=== PATIENT | female | born 1945 | race Caucasian/White ===

== ENCOUNTER → 2017-10-17 13:30 | Outpatient (CLI) | payer MEDICARE, OTHER, SELFPAY | PROVIDERS: PCP Family Medicine; Visit Provider Internal Medicine Cardiovascular Disease | DX: I25.810 Atherosclerosis of coronary artery bypass graft(s) without angina pectoris (principal); R07.9 Chest pain, unspecified; E78.5 Hyperlipidemia, unspecified; Z95.5 Presence of coronary angioplasty implant and graft | CPT/HCPCS: 99213 ==

== ENCOUNTER 2017-11-10 12:45 | Emergency (ER) | payer MEDICARE, OTHER, SELFPAY ==
[2017-11-10] VITALS (72 sets, daily range): BP systolic 108–159; BP diastolic 63–102; PULSE 51–92; RESP 12–25; TEMP 36.1–36.5; O2SAT 91–99
--- NOTE | 2017-11-10 15:13 | W.ED.GENAD ---
Discharge Plan Disposition Patient Disposition: HOME Condition: Stable Discharge Details Chief Complaint: Dizzy/Sync Clinical Impression: Lightheadedness Primary Care Provider: Kristyn Whitehead V ED Provider: Olga Berman Home Meds and New Rx's Prescriptions: Continue clonazepam [Klonopin] 0.5 MG tablet 0.5 mg PO BID PRN RF: 0 levothyroxine [Synthroid] 75 MCG tablet 75 mcg PO DAILY RF: 0 nitroglycerin 0.4 MG tablet, sublingual 0.4 mg Sublingual PRN RF: 0 epinephrine [EpiPen 2-Chong] 0.3 MG/0.3 ML auto-injector 0.3 mg IM ONCE RF: 0 vitamins A,C,A-nfvw-zrxrcf [PreserVision AREDS] 1 EACH tablet 1 ea PO DAILY RF: 0 atorvastatin 40 MG tablet 40 mg PO DAILY Qty: 90 RF: 6 aspirin 81 MG tablet,chewable 81 mg PO DAILY Qty: 30 RF: 12 hydroxychloroquine [Plaquenil] 200 mg Tablet 200 mcg PO BID RF: 0 clonidine HCl [Catapres] 0.1 MG tablet 0.1 mg PO Q8H PRN PRNRF: 0 fluconazole [Diflucan] 150 MG tablet 150 mg PO ONCE RF: 0 prednisone 5 MG tablet 20 mg PO DAILY RF: 0 calcium carbonate-vitamin D3 [Calcium 600 + D(3)] 1 EACH tablet 1 ea PO DAILY RF: 0 paroxetine HCl [Paxil] 30 MG tablet 30 mg PO DAILY RF: 0 pantoprazole 40 MG tablet,delayed release (DR/EC) 40 mg PO DAILY RF: 0 cyanocobalamin (vitamin B-12) 1,000 MCG/ML solution 1,000 mcg IJ Q30D RF: 0 betamethasone, augmented [Diprolene] 50 GM ointment 1 applic Topical BID PRN PRNRF: 0 lisinopril 5 MG tablet 5 mg PO DAILY RF: 0 mometasone 45 GM cream 1 applic Topical BID PRN PRNRF: 0 Discharge Instructions Instructions: Near Syncope (ED), Lightheadedness (ED) Additional Instructions: Please return immediately to the emergency department if you develop any new or worsening symptoms or if you become otherwise concerned. It is extremely important that you make an appointment to be seen this week in follow-up by your primary care doctor. Referrals: Kristyn Whitehead MD [Primary Care Provider] - Discharge Data Discharge Date/Time-TO BE ENTERED AT DEPARTURE: 11/10/17 22:43 Medical Decision Making [facility] Narrative Medical decision making narrative: Emani Delong is a 72 y/o woman with h/o hypertension, hyperlipidemia, coronary artery disease status post stent placement presenting to the emergency department with episode of lightheadedness/presyncope that occurred this morning and is still somewhat ongoing the emergency department. Associated with elevated blood pressure at her PCPs office. On exam patient appears fatigued but nontoxic. Normal cardiopulmonary exam. Normal neurologic exam. Concern for dehydration, PE versus other. Doubt ACS. Exam/history not consistent with tachydysrhythmia as patient with continuation of symptoms during EKG showing sinus laure at 50. Plan for chest x-ray, screening labs, telemetry, IV fluid hydration. Will monitor and reassess. negative troponin, negative d-dimer. Plan for repeat troponin and EKG. Upon reassessment patient reports feeling improved. She reports that she feels much better since having been able to rest. Systolic blood pressure now 130. Repeat troponin and EKG okay. Patient continues to feel well. Lengthy discussion with patient regarding return to the emergency department precautions and importance of outpatient follow-up. Patient is amenable to the plan. Medical Records Medical records reviewed: Yes I reviewed the patient's medical records. Imaging Data Radiologic Study: Attestation: I personally reviewed and interpreted this imaging study as follows: Radiologist's impression: PA AND LATERAL CHEST: The lungs are free of infiltrate. There is no pleural effusion. The cardiovascular structures appear intact. The mediastinum is unremarkable. SUMMARY: No evidence of acute cardiopulmonary disease. Lab Data Lab results reviewed: Yes I reviewed the patient's lab results. ECG Data Attestation: I personally reviewed and interpreted this ECG (s) as follows: Interpretation: EKG shows sinus bradycardia at 50 with normal axis, no WPW, no Brugada, no long QT, no STEMI. EKG shows NSR at 66 with nl axis, unchanged from prior HPI - General Adult General Mode of arrival: ambulatory. Date/Time Provider Initiated Documentation: 11/10/17 13:27. Limitations to Documentation: no limitations. Information obtained by: patient and family. HPI Narrative: Emani Delong is a 72 y/o woman with history of hypertension, hypothyroidism, hyperlipidemia, coronary artery disease presenting to the emergency department with lightheadedness. Patient reports that earlier today she began feeling very lightheaded. She also had some sweating and nausea. She was seen for this at [facility], where she was found to have elevated blood pressure and was sent to the emergency department. Upon arrival, patient continued to have lightheadedness and feel generally unwell. She denied having any pain. No shortness of breath, no cough, no fever, no vomiting, no diarrhea, no recent travel, no recent illnesses, recently in her usual state of health. She reports that she has been eating and drinking normally. She denies having similar symptoms in the past. Patient reports that she took her usual morning meds today, including her hypertension medication. Onset of symptoms was while at rest. Related Data Home Medications Medication Instructions Recorded Confirmed clonazepam [Klonopin] 0.5 mg PO BID PRN tab-cap 09/23/12 11/10/17 epinephrine [EpiPen 2-Chong] 0.3 mg IM ONCE 09/23/12 11/10/17 levothyroxine [Synthroid] 75 mcg PO DAILY tab-cap 09/23/12 11/10/17 nitroglycerin 0.4 mg SUBLINGUAL PRN 09/23/12 11/10/17 vitamins A,C,K-xhcx-ziabwq 1 ea PO DAILY 09/23/12 11/10/17 [PreserVision AREDS] aspirin 81 mg PO DAILY #30 tab.chew 11/17/15 11/10/17 atorvastatin 40 mg PO DAILY #90 tab-cap 11/17/15 11/10/17 betamethasone, augmented 1 applic TOPICAL BID PRN PRN 09/12/17 11/10/17 [Diprolene] calcium carbonate-vitamin D3 1 ea PO DAILY 09/12/17 11/10/17 [Calcium 600 + D(3)] clonidine HCl [Catapres] 0.1 mg PO Q8H PRN PRN 09/12/17 11/10/17 cyanocobalamin (vitamin B-12) 1,000 mcg IJ Q30D 09/12/17 11/10/17 fluconazole [Diflucan] 150 mg PO ONCE 09/12/17 11/10/17 lisinopril 5 mg PO DAILY 09/12/17 11/10/17 mometasone 1 applic TOPICAL BID PRN PRN 09/12/17 11/10/17 pantoprazole 40 mg PO DAILY 09/12/17 11/10/17 paroxetine HCl [Paxil] 30 mg PO DAILY 09/12/17 11/10/17 prednisone 20 mg PO DAILY 09/12/17 11/10/17 hydroxychloroquine [Plaquenil] 200 mcg PO BID 11/10/17 11/10/17 Allergies Allergy/AdvReac Type Severity Reaction Status Date / Time Sulfa (Sulfonamide Allergy Unverified 11/10/17 13:42 Antibiotics) venlafaxine HCl Allergy Unverified 11/10/17 13:42 [From Effexor] foods Allergy Uncoded 11/10/17 13:42 General Stated Complaint: Dizzy/Sync KARLA: 3 Review of Systems Review of Systems Constitutional: denies fevers Eyes: denies eye pain ENT: denies facial pain, dental pain, sore throat Cardiovascular: denies chest pain, edema Respiratory: denies SOB, cough GI: denies abdominal pain, vomiting, diarrhea : denies flank pain MSK: denies back pain, neck pain, arthralgias, myalgias Skin: denies rash Neuro: denies headaches, weakness, reports lightheadedness PFSH Medical History Anxiety disorder B12 deficiency Bright red blood per rectum Chest fullness Chest pressure Chronic low back pain Coronary artery disease Dyspnea on exertion Elevated blood pressure reading Fatigue H pylori ulcer History of coronary artery stent placement Hx of cardiac catheterization Hx of depression headache Hyperlipidemia Hypothyroidism Insomnia Osteopenia Psoriasis Skin lesion Subacromial bursitis Social History Smoking/Tobacco Use Status: Former Tobacco Use Surgical History Colonoscopy - MAC (11/25/16) Exam Narrative Exam Narrative: Constitutional: well and [id number], pleasant, conversing normally HENT: head atraumatic, normocephalic normal inspection, mucous membranes moist Eyes: conjunctiva normal, sclera normal, pupils 3mm b/l Neck: no stridor, normal ROM, trachea midline Chest: normal inspection Resp: normal work of breathing, LCTAB Cardio: normal rate, normal rhythm, no murmur appreciated GI: abdomen soft, non-tender, non-distended Back: normal inspection, no rash Skin: warm, dry, normal color, no rash Neuro: alert, not altered, grossly non-focal, normal tone Ext: no edema Psych: normal mood, normal affect, normal behavior Course Vital Signs Temperature 36.5 C 11/10/17 13:40 Pulse 56 L 11/10/17 13:40 Respiratory Rate 16 11/10/17 13:40 Blood Pressure 141/94 H 11/10/17 13:40 Pulse Oximetry 98 11/10/17 13:40 Temperature 36.5 C 11/10/17 13:40 Pulse 56 L 11/10/17 13:40 Respiratory Rate 16 11/10/17 13:40 Blood Pressure 141/94 H 11/10/17 13:40 Pulse Oximetry 98 11/10/17 13:40
[2017-11-10 16:31] LABS: Absolute Basophil Count 0.02 k/cumm (0.0-0.2); Absolute Eosinophil Count 0.14 k/cumm (0.0-0.7); Absolute Lymphocyte Count 1.31 k/cumm (1.2-3.4); Absolute Monocyte Count 0.28 k/cumm (0.11-0.7); Basophils % 0.4; Eosinophils % 2.7; HCT 46.3 % (36.0-46.0); HGB 15.5 g/dL (12.0-15.5); Mean Corp. HGB Concentration 33.5 g/dL (32.0-36.0); Mean Corpuscular Hemoglobin 32.1 pg (27.0-33.0); Mean Corpuscular Volume 95.9 fL (80-95); Mean Platelet Volume 8.8 fL (8.0-11.0); Monocytes % 5.3; Neutrophils % 66.6; Platelet Count 205 x1000/uL (130-400); RBC 4.83 m/cumm (4.00-5.20); RBC Distribution Width 13.5 % (11.7-14.6); White Blood Cell Count 5.25 k/cumm (4.4-10.8)
[2017-11-10 16:55] LABS: NT-proBNP 56 pg/mL
[2017-11-10 16:59] LABS: Troponin I < 0.02 ng/mL (0.00-0.06)
[2017-11-10 17:29] LABS: D-Dimer 217 ng/mlFEU (<500)
--- NOTE | 2017-11-10 19:12 | ED.GENADUL_ITS ---
Discharge Plan Disposition Patient Disposition: HOME Condition: Stable Discharge Details Chief Complaint: Dizzy/Sync Clinical Impression: Lightheadedness Primary Care Provider: Kristyn Whitehead V ED Provider: Olga Berman Home Meds and New Rx's Prescriptions: Continue clonazepam [Klonopin] 0.5 MG tablet 0.5 mg PO BID PRN RF: 0 levothyroxine [Synthroid] 75 MCG tablet 75 mcg PO DAILY RF: 0 nitroglycerin 0.4 MG tablet, sublingual 0.4 mg Sublingual PRN RF: 0 epinephrine [EpiPen 2-Chong] 0.3 MG/0.3 ML auto-injector 0.3 mg IM ONCE RF: 0 vitamins A,C,E-jmep-vdcueb [PreserVision AREDS] 1 EACH tablet 1 ea PO DAILY RF: 0 atorvastatin 40 MG tablet 40 mg PO DAILY Qty: 90 RF: 6 aspirin 81 MG tablet,chewable 81 mg PO DAILY Qty: 30 RF: 12 hydroxychloroquine [Plaquenil] 200 mg Tablet 200 mcg PO BID RF: 0 clonidine HCl [Catapres] 0.1 MG tablet 0.1 mg PO Q8H PRN PRNRF: 0 fluconazole [Diflucan] 150 MG tablet 150 mg PO ONCE RF: 0 prednisone 5 MG tablet 20 mg PO DAILY RF: 0 calcium carbonate-vitamin D3 [Calcium 600 + D(3)] 1 EACH tablet 1 ea PO DAILY RF: 0 paroxetine HCl [Paxil] 30 MG tablet 30 mg PO DAILY RF: 0 pantoprazole 40 MG tablet,delayed release (DR/EC) 40 mg PO DAILY RF: 0 cyanocobalamin (vitamin B-12) 1,000 MCG/ML solution 1,000 mcg IJ Q30D RF: 0 betamethasone, augmented [Diprolene] 50 GM ointment 1 applic Topical BID PRN PRNRF: 0 lisinopril 5 MG tablet 5 mg PO DAILY RF: 0 mometasone 45 GM cream 1 applic Topical BID PRN PRNRF: 0 Discharge Instructions Instructions: Near Syncope (ED), Lightheadedness (ED) Additional Instructions: Please return immediately to the emergency department if you develop any new or worsening symptoms or if you become otherwise concerned. It is extremely important that you make an appointment to be seen this week in follow-up by your primary care doctor. Referrals: Kristyn Whitehead MD [Primary Care Provider] - Discharge Data Discharge Date/Time-TO BE ENTERED AT DEPARTURE: 11/10/17 22:43 Medical Decision Making [facility] Narrative Medical decision making narrative: Emani Delong is a 72 y/o woman with h/o hypertension, hyperlipidemia, coronary artery disease status post stent placement presenting to the emergency department with episode of lightheadedness /presyncope that occurred this morning and is still somewhat ongoing the emergency department. Associated with elevated blood pressure at her PCPs office. On exam patient appears fatigued but nontoxic. Normal cardiopulmonary exam. Normal neurologic exam. Concern for dehydration, PE versus other. Doubt ACS. Exam/history not consistent with tachydysrhythmia as patient with continuation of symptoms during EKG showing sinus laure at 50. Plan for chest x -ray, screening labs, telemetry, IV fluid hydration. Will monitor and reassess. negative troponin, negative d-dimer. Plan for repeat troponin and EKG. Upon reassessment patient reports feeling improved. She reports that she feels much better since having been able to rest. Systolic blood pressure now 130. Repeat troponin and EKG okay. Patient continues to feel well. Lengthy discussion with patient regarding return to the emergency department precautions and importance of outpatient follow-up. Patient is amenable to the plan. Medical Records Medical records reviewed: Yes I reviewed the patient's medical records. Imaging Data Radiologic Study: Attestation: I personally reviewed and interpreted this imaging study as follows: Radiologist's impression: PA AND LATERAL CHEST: The lungs are free of infiltrate. There is no pleural effusion. The cardiovascular structures appear intact. The mediastinum is unremarkable. SUMMARY: No evidence of acute cardiopulmonary disease. Lab Data Lab results reviewed: Yes I reviewed the patient's lab results. ECG Data Attestation: I personally reviewed and interpreted this ECG (s) as follows: Interpretation: EKG shows sinus bradycardia at 50 with normal axis, no WPW, no Brugada, no long QT, no STEMI. EKG shows NSR at 66 with nl axis, unchanged from prior HPI - General Adult General Mode of arrival: ambulatory . Date/Time Provider Initiated Documentation: 11/10/17 13:27 . Limitations to Documentation: no limitations . Information obtained by: patient and family . HPI Narrative: Emani Delong is a 72 y/o woman with history of hypertension, hypothyroidism, hyperlipidemia, coronary artery disease presenting to the emergency department with lightheadedness. Patient reports that earlier today she began feeling very lightheaded. She also had some sweating and nausea. She was seen for this at [facility], where she was found to have elevated blood pressure and was sent to the emergency department. Upon arrival, patient continued to have lightheadedness and feel generally unwell. She denied having any pain. No shortness of breath, no cough, no fever, no vomiting, no diarrhea , no recent travel, no recent illnesses, recently in her usual state of health. She reports that she has been eating and drinking normally. She denies having similar symptoms in the past. Patient reports that she took her usual morning meds today, including her hypertension medication. Onset of symptoms was while at rest. Related Data Home Medications Medication Instructions Recorded Confirmed clonazepam [Klonopin] 0.5 mg PO BID PRN tab-cap 09/23/12 11/10/17 epinephrine [EpiPen 2-Chong] 0.3 mg IM ONCE 09/23/12 11/10/17 levothyroxine [Synthroid] 75 mcg PO DAILY tab-cap 09/23/12 11/10/17 nitroglycerin 0.4 mg SUBLINGUAL PRN 09/23/12 11/10/17 vitamins A,C,M-ispx-dblmil 1 ea PO DAILY 09/23/12 11/10/17 [PreserVision AREDS] aspirin 81 mg PO DAILY #30 tab.chew 11/17/15 11/10/17 atorvastatin 40 mg PO DAILY #90 tab-cap 11/17/15 11/10/17 betamethasone, augmented 1 applic TOPICAL BID PRN PRN 09/12/17 11/10/17 [Diprolene] calcium carbonate-vitamin D3 1 ea PO DAILY 09/12/17 11/10/17 [Calcium 600 + D(3)] clonidine HCl [Catapres] 0.1 mg PO Q8H PRN PRN 09/12/17 11/10/17 cyanocobalamin (vitamin B-12) 1,000 mcg IJ Q30D 09/12/17 11/10/17 fluconazole [Diflucan] 150 mg PO ONCE 09/12/17 11/10/17 lisinopril 5 mg PO DAILY 09/12/17 11/10/17 mometasone 1 applic TOPICAL BID PRN PRN 09/12/17 11/10/17 pantoprazole 40 mg PO DAILY 09/12/17 11/10/17 paroxetine HCl [Paxil] 30 mg PO DAILY 09/12/17 11/10/17 prednisone 20 mg PO DAILY 09/12/17 11/10/17 hydroxychloroquine [Plaquenil] 200 mcg PO BID 11/10/17 11/10/17 Allergies Allergy/AdvReac Type Severity Reaction Status Date / Time Sulfa (Sulfonamide Allergy Unverified 11/10/17 13:42 Antibiotics) venlafaxine HCl Allergy Unverified 11/10/17 13:42 [From Effexor] foods Allergy Uncoded 11/10/17 13:42 General Stated Complaint: Dizzy/Sync KARLA: 3 Review of Systems Review of Systems Constitutional: denies fevers Eyes: denies eye pain ENT: denies facial pain, dental pain, sore throat Cardiovascular: denies chest pain, edema Respiratory: denies SOB, cough GI: denies abdominal pain, vomiting, diarrhea : denies flank pain MSK: denies back pain, neck pain, arthralgias, myalgias Skin: denies rash Neuro: denies headaches, weakness, reports lightheadedness PFSH Medical History Anxiety disorder B12 deficiency Bright red blood per rectum Chest fullness Chest pressure Chronic low back pain Coronary artery disease Dyspnea on exertion Elevated blood pressure reading Fatigue H pylori ulcer History of coronary artery stent placement Hx of cardiac catheterization Hx of depression headache Hyperlipidemia Hypothyroidism Insomnia Osteopenia Psoriasis Skin lesion Subacromial bursitis Social History Smoking/Tobacco Use Status: Former Tobacco Use Surgical History Colonoscopy - MAC (11/25/16) Exam Narrative Exam Narrative: Constitutional: well and [id number]-[id number], pleasant, conversing normally HENT: head atraumatic, normocephalic normal inspection, mucous membranes moist Eyes: conjunctiva normal, sclera normal, pupils 3mm b/l Neck: no stridor, normal ROM, trachea midline Chest: normal inspection Resp: normal work of breathing, LCTAB Cardio: normal rate, normal rhythm, no murmur appreciated GI: abdomen soft, non-tender, non-distended Back: normal inspection, no rash Skin: warm, dry, normal color, no rash Neuro: alert, not altered, grossly non-focal, normal tone Ext: no edema Psych: normal mood, normal affect, normal behavior Course Vital Signs Temperature 36.5 C 11/10/17 13:40 Pulse 56 L 11/10/17 13:40 Respiratory Rate 16 11/10/17 13:40 Blood Pressure 141/94 H 11/10/17 13:40 Pulse Oximetry 98 11/10/17 13:40 Temperature 36.5 C 11/10/17 13:40 Pulse 56 L 11/10/17 13:40 Respiratory Rate 16 11/10/17 13:40 Blood Pressure 141/94 H 11/10/17 13:40 Pulse Oximetry 98 11/10/17 13:40
--- NOTE | 2017-11-10 19:15 | DI.RAD_ITS ---
SYMPTOM/DIAGNOSIS: LIGHTHEADEDNESS, SYNCOPE PA AND LATERAL CHEST: The lungs are free of infiltrate. There is no pleural effusion. The cardiovascular structures appear intact. The mediastinum is unremarkable. SUMMARY: No evidence of acute cardiopulmonary disease.
[2017-11-10] MEDS: Normal Saline 250 ML 500 ML IV (19:20)
[2017-11-10] MEDS: Acetaminophen 325 MG TAB 650 MG PO (19:23)
[2017-11-10 19:43] LABS: Bilirubin Negative (Negative); Blood Negative (Negative); Clarity Clear; Glucose Negative (Negative); Ketones Negative (Negative); Leukocyte Esterase Trace (Negative); Nitrite Negative (Negative); Urobilinogen 0.2 EU/dL (Up TO 0.2)
[2017-11-10 19:57] LABS: Troponin I < 0.02 ng/mL (0.00-0.06)
--- NOTE | 2017-11-10 20:03 | DI.VRAD_ITS ---
EXAM: XR Chest, 2 Views CLINICAL HISTORY: 72 years old, female; Signs and symptoms; Other: Lightheadedness, presyncope TECHNIQUE: Frontal and lateral views of the chest. COMPARISON: CR - CHEST 2 VIEWS PA,LAT 09/12/2017 3:22 PM FINDINGS: Lungs: Mild COPD. Clear lungs. No pulmonary consolidation. Pleural space: Unremarkable. No pneumothorax. Heart: At least one coronary artery stent is present. No cardiomegaly. Right epicardiac opacity unchanged since prior examination performed in 2015, likely epicardiac fat. Mediastinum: Unremarkable. Bones/joints: Unremarkable. IMPRESSION: No acute findings. Dictated and Authenticated by: Saul Cortes MD. Ordering:ZACKARY MUNOZ MD
[2017-11-10 20:05] LABS: Bacteria Negative HPF (Negative); C & S Indicated? Yes; Casts Negative LPF (Negative); Crystals Negative HPF (Negative); Epithelial Cells Negative HPF (Negative); Mucus Negative (Negative); Other Cells Negative (Negative); RBC 0-2 (0-2); WBC 0-2 HPF (0-5)
[2017-11-10 20:49] LABS: ALT 30 U/L (12-78); AST 20 U/L (15-37); Albumin 3.6 g/dL (3.4-5.0); Alkaline Phosphatase 67 U/L (46-116); Anion Gap 9.6 mmol/L (3-11); BUN 24 mg/dL (7-18); Bilirubin, Total 0.8 mg/dL (0.2-1.0); CO2 25.4 mmol/L (21.0-32.0); CREATININE 1.16 mg/dL (0.55-1.02); Calcium 8.7 mg/dL (8.5-10.1); Chloride 105 mmol/L (98-107); Estimated GFR 45.67 (mL/min/1.73m2); Glucose 99 mg/dL (70-100); Sodium 140 mmol/L (136-145); Total Protein 6.7 g/dL (6.4-8.2)
[2017-11-10 20:57] LABS: Troponin I < 0.02 ng/mL (0.00-0.06)
--- NOTE | 2017-11-11 09:44 | PDOC.ERCMPRO ---
Care Management Progress Note 11/11/17-Pt seen on 11/10/17 for dizziness and syncope by Dr. Payal Berman. F/U referral for this week sent to [facility] as Emily Whitehead is pt's PCP.
== END 2017-11-10 22:43 | disposition home or self-care (01) ==
PROVIDERS: Emergency Provider Student in an Organized Health Care Education/Training Program; PCP Family Medicine
DX: R42 Dizziness and giddiness (principal); I10 Essential (primary) hypertension; R11.0 Nausea; I25.10 Atherosclerotic heart disease of native coronary artery without angina pectoris; Z95.5 Presence of coronary angioplasty implant and graft
CPT/HCPCS: 36415; 80053; 87077; 93005; 96360; 99284; 71046; 81003; 81015; 83880; 84484; 85025; 85379; 87086; 93010

== ENCOUNTER 2017-12-09 16:25 | Outpatient (REF) | payer MEDICARE, OTHER, SELFPAY | END 2017-12-09 16:45 | LOC: NCHCN 16:25 | PROVIDERS: PCP Family Medicine; Visit Provider Family Medicine | DX: E03.9 Hypothyroidism, unspecified (principal) | CPT/HCPCS: 84443 ==

== ENCOUNTER → 2018-07-10 11:41 | Outpatient (BNVA) | payer MEDICARE, OTHER, SELFPAY | PROVIDERS: PCP Family Medicine; Visit Provider Internal Medicine Cardiovascular Disease | DX: I25.10 Atherosclerotic heart disease of native coronary artery without angina pectoris (principal); E78.5 Hyperlipidemia, unspecified | CPT/HCPCS: 99213 ==

== ENCOUNTER 2018-07-13 01:26 | Outpatient (CLI) | payer MEDICARE, OTHER, SELFPAY ==
--- NOTE | 2018-07-13 10:04 | DI.MAMMO_ITS ---
SYMPTOM/DIAGNOSIS: SCREENING, HEALTH MAINTENANCE EXAM, Z00.8 MAMMOGRAMS: Mammograms were interpreted according to the usual protocol including computer analysis with CAD system, tomosynthesis and C view imaging. Comparison is made with exams from [id number]. The breasts are composed of scattered fibroglandular densities, breast density, Category B. No suspicious masses or suspicious microcalcifications are seen. There has been no significant change. IMPRESSION: Category 1, negative mammogram. Yearly screening mammography is recommended. [facility] ASSESSMENT OF FINDINGS: Negative. Category 1. Patient will receive a letter notifying them of these results. BI-RADS category B. There are scattered areas of fibroglandular density.
== END 2018-07-13 01:46 ==
PROVIDERS: PCP Family Medicine; Visit Provider Family Medicine
DX: Z12.31 Encounter for screening mammogram for malignant neoplasm of breast (principal)
CPT/HCPCS: 77063; 77067

== ENCOUNTER 2018-09-25 04:14 | Outpatient (CLI) | payer MEDICARE, OTHER, SELFPAY ==
[2018-09-25 10:07] LABS: Abs Immature Grans 0.01 k/cumm (0.0-0.09); Absolute Basophil Count 0.02 k/cumm (0.0-0.2); Absolute Eosinophil Count 0.17 k/cumm (0.0-0.7); Absolute Lymphocyte Count 1.15 k/cumm (1.2-3.4); Absolute Monocyte Count 0.24 k/cumm (0.11-0.7); Absolute Neutrophil Count 4.55 k/cumm (1.2-6.7); Basophils % 0.3; Eosinophils % 2.8; HCT 44.9 % (36.0-46.0); HGB 14.8 g/dL (12.0-15.5); Immature Grans % 0.2; Lymphocytes % 18.7; Mean Corpuscular Hemoglobin 33.9 pg (27.0-33.0); Mean Corpuscular Volume 102.7 fL (80-95); Monocytes % 3.9; Neutrophils % 74.1; Platelet Count 275 x1000/uL (130-400); RBC 4.37 m/cumm (4.00-5.20); RBC Distribution Width 13.5 % (11.7-14.6); White Blood Cell Count 6.14 k/cumm (4.4-10.8)
[2018-09-25 10:59] LABS: ALT 33 U/L (12-78); AST 17 U/L (15-37); Albumin 4.1 g/dL (3.4-5.0); Alkaline Phosphatase 80 U/L (46-116); Anion Gap 7.9 mmol/L (3-11); BUN 27 mg/dL (7-18); Bilirubin, Total 0.9 mg/dL (0.2-1.0); CO2 28.1 mmol/L (21.0-32.0); CREATININE 1.22 mg/dL (0.55-1.02); Calcium 9.3 mg/dL (8.5-10.1); Chloride 105 mmol/L (98-107); Estimated GFR 42.97 (mL/min/1.73m2); Glucose 82 mg/dL (70-100); Potassium 4.1 mmol/L (3.5-5.1); Sodium 141 mmol/L (136-145); Total Protein 7.4 g/dL (6.4-8.2)
== END 2018-09-25 04:34 ==
PROVIDERS: PCP Family Medicine; Visit Provider Family Medicine
DX: L30.8 Other specified dermatitis (principal); Z79.899 Other long term (current) drug therapy
CPT/HCPCS: 36415; 80053; 85025

== ENCOUNTER 2018-12-03 00:47 | Outpatient (CLI) | payer MEDICARE, OTHER, SELFPAY ==
--- NOTE | 2018-12-03 13:56 | DI.DEXA_ITS ---
EXAM: XR DEXA BONE DENSITY W/WO CLAY INDICATION: SCREENING FOR OSTEOPOROSIS IN POSTMENOPAUSAL WOMAN,Z78.0,HEALTH MAINTENANCE. COMPARISON: Previous examination of June 2007 TECHNIQUE: 2D digital imaging was performed. FINDINGS: DEXA scan was performed according to the usual protocol. Findings for lumbar spine scanning are a T- score of -1.8. Previous examination of June 2007 showed lumbar T-score of -1.2. Findings for left hi p scanning are a T-score of -0.6. Left femoral neck T-score of -1.0. Previous examination of July 13 showed left hip T-score of 0. Left forearm scanning shows T-score of -1.8. IMPRESSION: Findings consistent with osteopenia according to the WHO criteria. Lateral vertebral scanogram shows no evidence of a vertebral compression fracture.
== END 2018-12-03 01:07 ==
PROVIDERS: PCP Family Medicine; Visit Provider Family Medicine
DX: M85.88 Other specified disorders of bone density and structure, other site (principal); Z78.0 Asymptomatic menopausal state
CPT/HCPCS: 77080

== ENCOUNTER → 2019-07-15 11:28 | Outpatient (BNVA) | payer MEDICARE, OTHER, SELFPAY | PROVIDERS: PCP Family Medicine; Referring Provider Family Medicine; Visit Provider Internal Medicine Cardiovascular Disease | DX: R06.02 Shortness of breath (principal); I25.10 Atherosclerotic heart disease of native coronary artery without angina pectoris; I10 Essential (primary) hypertension | CPT/HCPCS: 99204; 99443 ==

== ENCOUNTER 2019-08-17 00:40 | Outpatient (CLI) | payer MEDICARE, OTHER, SELFPAY ==
--- NOTE | 2019-08-17 12:23 | DI.US_ITS ---
APPROVED REPORT EXAM: Comprehensive 2D, Doppler, and color-flow Echocardiogram Patient Location: Out-Patient Monitoring Analyst: Tala Castaneda RDCS (AE) Indications: SOB Other Information Study Quality: Good Conclusion Left Ventricle : The left ventricle is normal size. The left ventricular systolic function is normal. The left ventricular ejection fraction is within the normal range. There is normal left ventricular wall thickness. There is normal LV segmental wall motion. The left ventricular diastolic function is normal. LVEF is 55-60%. Right Ventricle : The right ventricle is normal size. The right ventricular systolic function is norm al. The RVSP is 17.5 mmHg. Atria : The left atrium size is normal. The right atrium size is normal. Aortic Valve : The Aortic valve is sclerotic. Aortic valve is trileaflet. Mild aortic stenosis. Moder ate aortic regurgitation. Mitral Valve : The mitral valve is normal in structure. No evidence of mitral valve stenosis. Trace m itral regurgitation. Great Vessels : IVC is normal in size and collapses >50% with inspiration. The remainder of study for additional details. There is no prior echocardiogram available for comparison. Wall motion Left Ventricle The left ventricle is normal size. The left ventricular systolic function is normal. The left ventric ular ejection fraction is within the normal range. There is normal left ventricular wall thickness. T here is normal LV segmental wall motion. The left ventricular diastolic function is normal. There is no ventricular septal defect visualized. LVEF is 55-60%. Right Ventricle The right ventricle is normal size. The right ventricular systolic function is normal. The RVSP is 17 .5 mmHg. Atria The left atrium size is normal. The right atrium size is normal. The interatrial septum is intact wit h no evidence for an atrial septal defect. Aortic Valve The Aortic valve is sclerotic. Aortic valve is trileaflet. Mild aortic stenosis. Moderate aortic regu rgitation. Mitral Valve The mitral valve is normal in structure. No evidence of mitral valve stenosis. Trace mitral regurgita tion. Tricuspid Valve The tricuspid valve is normal in structure. There is no tricuspid valve stenosis. Trace to mild tricu spid regurgitation. Pulmonic Valve The pulmonary valve is normal in structure. There is no pulmonic valvular stenosis. Trace pulmonic re gurgitation. Great Vessels The aortic root is normal in size. Ascending aorta is normal in caliber. Aortic arch is normal in logan iber. IVC is normal in size and collapses >50% with inspiration. Pericardium There is no pericardial effusion. 2D Dimensions IVSD d PLAX 0.91 cm F: 0.6-1.0 LV Vol A2C d MOD 71.2 mL LVPW d PLAX 0.91 cm F: 0.6 - 1.0 LV Vol A4C d MOD 93.1 mL LVID d PLAX 4.56 cm F: 3.8 - 5.2 LA vol/ BSA A2C s A-L 29.6 mL/m2 LVDs 3.05 cm F: 2.2 - 3.5 LA vol/ BSA A4C s A-L 21.7 mL/m2 Ao Root d 3.31 cm F: 2.7 - 3.3 LA Vol/ BSA Biplane s A-L 26.3 mL/m2 RA Area A4C 10.28 cm2 LA Area A4C s MOD 15.85 cm2 RA Vol/ BSA A4C s A-L 11.1 mL/m2 LA Area A2C s MOD 19.25 cm2 Ao Asc Diam d 3.10 cm F: 2.3 - 3.1 LV EF A4C MOD 55.6 % LV EF Teichholz 61.1 % LV EF A2C MOD 59.1 % LVEF (Suárez's) 55.69 % F: 54 - 74 LV EF Biplane MOD 55.7 % LV Volume 62.05 mL F: 46 - 106 SV 45.39 mL LV Volume Index 32.48 mL/m2 F: 29 - 61 SV Index 23.72 mL/m2 LV Vol Biplane MOD 81.5 mL FS 32.60 % M-Mode TAPSE 2.24 cm (M/F) >1.7 LV Diastology MV E' medial 0.069 (>0.07 m/s) E/A Ratio 1.0 LV E/e MED 11.20 (<14) MV E Vmax 0.78 (0.4-1.3 m/s) MV E' lateral 0.062 (>0.1 m/s) MV A Vmax 0.75 (0.4-1.3 m/s) LV E/e LAT 12.55 (<14) MV E/A Ratio 1.02 MV E/E' medial 11.23 MV E/E' lateral 12.56 Aortic Valve LVOT Area 3.08 cm2 AoV Area Vmax 1.23 cm2 LVOT Vmax 0.95 m/s AoV Area/ BSA (Vmax) 0.64 cm2/m2 LVOT Mean Benson. 0.63 m/s VY Mean Benson. 1.13 cm2 LVOT Peak Grad 3.6 mmHg VY Mean Benson. Index 0.59 cm2/m2 LVOT Mean Grad 1.8 mmHg AR DT 2859 msec LVOT VTI 0.205 m AR PHT 829 msec LVOT Diam s 1.95 cm AoV Vmax 2.39 m/s Velocity Ratio 0.39 AoV Mean Benson. 1.70 m/s AoV Peak Grad 22.8 mmHg LVOT SV 63.11 mL AoV Mean Grad 13.0 mmHg AoV VTI 0.522 m AoV Area VTI 1.21 cm2 AoV Area/ BSA (VTI) 0.63 cm/m2 Mitral Valve MV DT 206 (160-240 msec) MV PHT 60 msec MV Area PHT 3.69 cm2 Pulmonary Valve PV Vmax 0.93 (0.5-1.5 m/s) RVOT Peak Gr. 3.10 mmHg PV Peak Grad 3.4 mmHg RVOT Mean Gr. 1.50 mmHg PV Mean Grad 1.7 mmHg RVOT VTI 0.200 m PV VTI 0.198 m RVOT Vmax 0.88 m/s Tricuspid Valve TR Peak Grad 14.4 mmHg TR Vmax 1.90 m/s RA Pressure 3.00 mmHg RVSP (TR) 17.5 mmHg
== END 2019-08-17 01:00 ==
PROVIDERS: PCP Family Medicine; Visit Provider Internal Medicine Cardiovascular Disease
DX: R06.02 Shortness of breath (principal); I25.10 Atherosclerotic heart disease of native coronary artery without angina pectoris; I10 Essential (primary) hypertension; I35.2 Nonrheumatic aortic (valve) stenosis with insufficiency
CPT/HCPCS: 93306

== ENCOUNTER → 2019-08-26 08:56 | Outpatient (BNVA) | payer MEDICARE, OTHER, SELFPAY | PROVIDERS: PCP Family Medicine; Referring Provider Family Medicine; Visit Provider Internal Medicine Cardiovascular Disease | DX: I25.10 Atherosclerotic heart disease of native coronary artery without angina pectoris (principal); R06.02 Shortness of breath; I35.2 Nonrheumatic aortic (valve) stenosis with insufficiency; I10 Essential (primary) hypertension | CPT/HCPCS: 99214 ==

== ENCOUNTER 2019-09-06 00:26 | Outpatient (CLI) | payer MEDICARE, OTHER, SELFPAY ==
--- NOTE | 2019-09-06 06:45 | DI.NM_ITS ---
APPROVED REPORT Exam: Exercise Treadmill Patient Location: Out-Patient Room/Bed: Stress Nurse: Kat Chicas RN BMI: 30.44 Baseline Rhythm: Sinus Bradycardia Indications: SOB, intermittent chest pressure. Medical History Medical History: HTN, Hyperlipidemia, Obstructive sleep apnea Cardiac Medications: Clonazepam prn. Nitroglycerin prn. Levothyroxine. Aspirin. Atorvastatin. Clonidi ne prn. Lisinopril. Allergies: Sulfa. Venlafaxine HCL. Cardiac Risk Factors: HTN, Hyperlipidemia, CAD, former smoker, hypothryoidism. Previous Cardiac Procedures: PCI Exercise History: Physically active Lung Sounds: Clear to auscultation Heart Sounds: Murmur Stress Test Details Test: Exercise stress testing was performed using a Koffi protocol. Nuclear Acquisition: Rest Tc-99m/Stress Tc-99m 1 day Rest Isotope: Tc-99m Sestamibi. Dose: 12.1 Date: 09/06/2019 Injection Time: 0930 Stress Isotope: Tc-99m Sestamibi. Dose: 37.0 Date: 09/06/2019 Injection Time: 1145 HR Resting HR Supine: 57 bpm Max Heart Rate (APMHR): 144 bpm Resting HR Standin bpm Target HR (85% APMHR): 122 bpm Max HR Achieved: 141 bpm % of APMHR: 97 Recovery HR: 79 bpm HR response to stress: Normal HR response to stress BP Resting BP Supine: 160/92 mmHg Resting BP Standin/88 mmHg Max BP: 184/80 mmHg Recovery BP: 168/92 mmHg BP response to stress: Normal blood pressure response to stress. ECG Resting ECG: Sinus Bradycardia Stress ECG: Sinus Tachycardia ST Change: No significant ST segment changes Recovery ECG: Sinus Rhythm Recovery ST Change: No significant ST segment changes Clinical Reason for Termination: Chest pain/Anginal equivalent Stress Symptoms: Chest pain Exercise duration: 03 min06 sec Highest Stage Reached: Stage 1: 1.7 mph at 10% grade. Exercise capacity: 4.76 METs Functional Capacity: Mildly deminished capacity Stress ECG Conclusion 1. Resting electrocardiogram was within normal limits 2. Patient exercised on the Koffi protocol and completed a workload of 4.76 METS. The patient descri bed chest pain at end exercise relieved by rest 3. Normal heart rate and blood pressure response to exercise. The patient achieved 97% of maximum pr edicted heart rate for age 4. Electrocardiographically the test was negative for myocardial ischemia 5. There were no significant dysrhythmias Stress Test Summary STAGE Time (mins) Speed (mph) Grade (%) HR BP SYMPTOMS METS Supine 57 160/92 Standing 62 174/88 1 3 1.7 10 141 184/80 3 out of 10 Chest pressure 4.6 1 min recovery 114 190/84 3 min recovery 88 182/88 6 min recovery 79 168/92 Chest pressure subsided. MPI Conclusion No definite evidence of myocardial ischemia or prior myocardial infarction Ejection fraction 73% Radiologist Interpretation Radiologist Interpretation by: Adan Baptiste MD Interpretation Date/Time: 09/06/2019 16:16:43
== END 2019-09-06 00:46 ==
PROVIDERS: PCP Family Medicine; Visit Provider Internal Medicine Cardiovascular Disease
DX: I25.10 Atherosclerotic heart disease of native coronary artery without angina pectoris (principal); R07.89 Other chest pain; R06.02 Shortness of breath; I10 Essential (primary) hypertension; E78.5 Hyperlipidemia, unspecified
CPT/HCPCS: 78452; 93016; 93018; 93017

== ENCOUNTER 2019-09-07 11:33 | Outpatient (REF) | payer MEDICARE, OTHER, SELFPAY ==
[2019-09-07 19:58] LABS: Anion Gap 8.9 mmol/L (3-11); BUN 25 mg/dL (7-18); CO2 28.1 mmol/L (21.0-32.0); CREATININE 1.01 mg/dL (0.55-1.02); Calcium 9.6 mg/dL (8.5-10.1); Chloride 104 mmol/L (98-107); Estimated GFR 53.29 (mL/min/1.73m2); Ferritin 73 ng/mL (8-252); Glucose 94 mg/dL (74-106); Potassium 4.6 mmol/L (3.5-5.1); Sodium 141 mmol/L (136-145)
== END 2019-09-07 11:53 ==
LOC: NCHCN 11:33
PROVIDERS: PCP Family Medicine; Visit Provider Family Medicine
DX: R25.2 Cramp and spasm (principal); R79.89 Other specified abnormal findings of blood chemistry
CPT/HCPCS: 80048; 82728; 83735

== ENCOUNTER → 2019-10-08 09:33 | Outpatient (BNVA) | payer MEDICARE, OTHER, SELFPAY | PROVIDERS: PCP Family Medicine; Referring Provider Family Medicine; Visit Provider Internal Medicine Cardiovascular Disease | DX: I25.10 Atherosclerotic heart disease of native coronary artery without angina pectoris (principal); R06.02 Shortness of breath; I10 Essential (primary) hypertension; I35.2 Nonrheumatic aortic (valve) stenosis with insufficiency | CPT/HCPCS: 99214 ==

== ENCOUNTER → 2019-12-10 11:42 | Outpatient (BNVA) | payer MEDICARE, OTHER, SELFPAY | PROVIDERS: PCP Family Medicine; Referring Provider Family Medicine; Visit Provider Internal Medicine Cardiovascular Disease | DX: R06.02 Shortness of breath (principal); I25.10 Atherosclerotic heart disease of native coronary artery without angina pectoris; I10 Essential (primary) hypertension | CPT/HCPCS: 99214; 99442 ==

== ENCOUNTER 2020-07-07 03:45 | Outpatient (CLI) | payer MEDICARE, OTHER, SELFPAY ==
[2020-07-07 11:02] LABS: Abs Immature Grans 0.01 10^3/uL (0.0-0.06); Absolute Basophil Count 0.03 10^3/uL (0.0-0.2); Absolute Eosinophil Count 0.34 10^3/uL (0.0-0.7); Absolute Monocyte Count 0.34 10^3/uL (0.1-0.8); Absolute Neutrophil Count 3.08 10^3/uL (1.2-6.7); Basophils % 0.6; Eosinophils % 6.7; HCT 40.3 % (36.0-46.0); HGB 13.1 g/dL (11.2-15.7); Immature Grans % 0.2; Lymphocytes % 25.5; MCH 33.6 pg (27.0-33.0); MCHC 32.5 % (32.0-36.0); MCV 103.3 fL (80-95); MPV 8.6 fL (8.0-11.0); Monocytes % 6.7; Neutrophils % 60.3; Nucleated RBC 0 %; Platelet Count 260 10^3/uL (130-400); RDW 12.9 % (11.7-14.6); RDW-SD 48.3 fL
[2020-07-07 12:15] LABS: ALT 28 U/L (14-59); AST 21 U/L (15-37); Alkaline Phosphatase 107 U/L (46-116); Anion Gap 9.6 mmol/L (3-11); BUN 34 mg/dL (7-18); Bilirubin, Total 0.9 mg/dL (0.2-1.0); CO2 26.4 mmol/L (21.0-32.0); CREATININE 1.2 mg/dL (0.55-1.02); Calcium 9.5 mg/dL (8.5-10.1); Chloride 105 mmol/L (98-107); Estimated GFR 43.56 (mL/min/1.73m2); Glucose 81 mg/dL (74-106); Potassium 4.8 mmol/L (3.5-5.1); Sodium 141 mmol/L (136-145); Total Protein 6.9 g/dL (6.4-8.2)
== END 2020-07-07 03:46 | disposition home or self-care (01) ==
PROVIDERS: PCP Family Medicine; Visit Provider Internal Medicine Rheumatology
DX: Z79.899 Other long term (current) drug therapy (principal)
CPT/HCPCS: 36415; 80053; 85025

== ENCOUNTER → 2020-07-17 09:30 | Outpatient (BNVA) | payer MEDICARE, OTHER, SELFPAY | PROVIDERS: PCP Family Medicine; Referring Provider Family Medicine; Visit Provider Internal Medicine Cardiovascular Disease | DX: R06.02 Shortness of breath (principal); I25.10 Atherosclerotic heart disease of native coronary artery without angina pectoris | CPT/HCPCS: 99214; 99213 ==

== ENCOUNTER 2020-10-06 11:11 | Outpatient (REF) | payer MEDICARE, OTHER, SELFPAY ==
[2020-10-06 14:54] LABS: HCT 45.7 % (36.0-46.0); HGB 14.5 g/dL (11.2-15.7)
[2020-10-06 15:31] LABS: Anion Gap 8.2 mmol/L (3-11); BUN 22 mg/dL (7-18); CO2 27.8 mmol/L (21.0-32.0); CREATININE 1.1 mg/dL (0.55-1.02); Calcium 9.5 mg/dL (8.5-10.1); Chloride 106 mmol/L (98-107); Estimated GFR 48.16 (mL/min/1.73m2); Glucose 92 mg/dL (74-106); Potassium 4.6 mmol/L (3.5-5.1); Sodium 142 mmol/L (136-145); TSH (W/Ref FT4) 2.97 uIU/mL (0.36-3.74); Vitamin B12 614 pg/mL (193-986)
== END 2020-10-06 11:12 | disposition home or self-care (01) ==
LOC: NCHCN 11:11
PROVIDERS: PCP Family Medicine; Visit Provider Family Medicine
DX: I10 Essential (primary) hypertension (principal); E53.8 Deficiency of other specified B group vitamins; E03.9 Hypothyroidism, unspecified
CPT/HCPCS: 80048; 82607; 84443; 85014; 85018

== ENCOUNTER → 2021-07-16 09:48 | Outpatient (BNVA) | payer MEDICARE, OTHER, SELFPAY | PROVIDERS: PCP Family Medicine; Visit Provider Internal Medicine Cardiovascular Disease | DX: I25.10 Atherosclerotic heart disease of native coronary artery without angina pectoris (principal); I35.1 Nonrheumatic aortic (valve) insufficiency; R06.02 Shortness of breath | CPT/HCPCS: 99213 ==

== ENCOUNTER 2021-08-22 09:37 | Observation (INO) | payer MEDICARE, SELFPAY ==
[2021-08-22] VITALS (50 sets, daily range): BP systolic 104–177; BP diastolic 62–115; PULSE 46–109; RESP 13–25; TEMP 36.2–36.9; O2SAT 92–100
--- NOTE | 2021-08-22 09:30 | RT.EKG_ITS ---
APPROVED REPORT Exam: Resting ECG Reason for Exam: chest pain Patient Location: E HR:58 bpm ECG Measurements Heart Rate 58 AXIS WY 192 P 66 QRSd 90 QRS 37 QT 450 T 51 QTc 444 Conclusion Sinus bradycardia...rate< 60
--- OUTSIDE RECORDS SUMMARY | 2021-08-22 09:42 | XMS_ITS | Encounter Summary ---
:1945 Author Organization [facility] [place] [address] Care Team Providers Name Role Phone Kristyn Whitehead MD Primary Care Provider Encounter Details Date Type Department Care Team Description 12/15/2018 [place] [facility] [place] Loera Psoriasiform dermatitis; [facility] MD [place] Primary osteoarthritis involving multipl e joints; [facility] High risk medication use; [place], [place] Macrocytosis; [id number] RHE[address] DEPT. Chronic right-sided low back pain withou t sciatica; [phone] [place], [place] [address] Hypothyroidism, unspecified type; [phone] (Wo rk) Psoriatic arthritis Social History Tobacco Use Types Packs/Day Years Used Date Former Smoker Smokeless Tobacco: Never Used Sex Assigned at Date Recorded Not on file documented as of this encounter Last Filed Vital Signs Vital Sign Reading Time Taken Comments Blood Pressure 135/74 12/15/2018 11:27 AM EDT Pulse 75 12/15/2018 11:27 AM EDT Temperature 36.6 ??C (97.9 ??F) 12/15/2018 11:27 AM EDT Respiratory Rate - - Oxygen Saturation 99% 12/15/2018 11:27 AM EDT Inhaled Oxygen Concentration - - Weight 85.3 kg (188 lb) 12/15/2018 11:27 AM EDT Height 165.1 cm (5' 5) 12/15/2018 11:27 AM EDT Body Mass Index 31.28 12/15/2018 11:27 AM EDT documented in this encounter Patient Instructions Patient InstructionsAlton Loera MD - 12/15/2018 11:00 AM EDT Get labs today at 3L. Call or myD for results if you don't hear from us by next week. Further recommendations based on test results. Increase MTX to 8 tabs (= 20 mg) a week. Stay at 2 mg a day on the prednisone until hand cracks heal, then start tapering very slowly again. Resume flurbiprofen. Go to water aerobics in [facility]. Try and cut aback on afternoon drink to one-a-day. Check back at 1 month and let us know how you're doing. Follow up in 6 months or when back from [facility]. Call if problems or concerns. documented in this encounter Progress Notes Alton Loera MD - 12/15/2018 11:00 AM EDT Images from the original note were not included. Rheumatology Clinic: Dr. 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 We now have her on increasing doses of methotrexate trying to control her significant skin rash, predominantly affecting her hands. Prednisone, given at high enough doses, will resolve the rash, but repeated attempts to taper that failed. We then added Plaquenil which did not help. We then added methotrexate, which has been helpful. Currently she is at 15 mg a week. With this, she has been able to taper the prednisone down to 1 mg a day about a week ago when she started noticing some cracks on the dorsum of a couple of MCP joints. Interestingly, she told me she stopped the Plaquenil on her own about 5 months ago and did not notice any difference one way or the other. With the return of the cracking skin, just yesterday she went back up to 2 mg a day. She had similar problems trying to get from 3 to 2 mg a day sometime ago, but eventually made it. She is tolerating the methotrexate well. She is due for methotrexate labs. She will be heading down to [place] in a few days. In terms of her osteoarthritis and aches and pains, she continues to have a lot of back and hip areaissues. In terms of her back she has a painful area in the lumbar spine that radiates just off to the right of midline, and perhaps has some associated muscle spasm. She also has unusual pain in her buttocks which we thought might represent ischial bursitis, but her exam is not consistent with that. Interestingly, this is worse with walking. There are no neuropathic symptoms going down the legs. There are no bowel or bladder issues. We specifically asked her about her previous experience with PT, she said that she likes PT and believes it works, but the benefits do not last too long. When in [place], she has a hot tub in her housing complex. That definitely helps. She is also having problems with dizziness when she gets out of a chair. Because of her back pain, she can only sleep on her stomach. When she lies on either side, she gets pain in the area of the trochanteric bursa. Patient Active Problem List Diagnosis Code ??? CIS - Anxiety ??? CIS - Chest pain ??? CIS - Depression ??? CIS - Hyperlipidemia ??? CIS - Hypothyroid ??? CAD (coronary artery disease) I25.10 ??? 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 Unstable angina I20.0 Medications 12/15/18 1131 Medication Sig Taking? predniSONE (DELTASONE) 1 mg Tablet Take 4 tablets by mouth daily. Yes folic acid (FOLVITE) 1 mg Tablet Take 1 tablet by mouth daily. Yes aspirin 81 mg Tablet, Delayed Release (E.C.) Take 81 mg by mouth daily. Yes cholecalciferol, Vitamin D3, (VITAMIN D-3) 2,000 unit Tablet Take by mouth daily. Yes cyanocobalamin, vitamin B-12, 1,000 mcg/mL Solution Inject as directed. Every 3 weeks Yes pantoprazole (PROTONIX) 40 mg Tablet, Delayed Release (E.C.) daily. Yes levothyroxine (SYNTHROID) 75 mcg Tablet Take 75 mcg by mouth daily. Yes PARoxetine (PAXIL) 30 mg Tablet Take 30 mg by mouth every morning. Yes atorvastatin (LIPITOR) 40 mg Tablet Take 40 mg by mouth daily. Yes nitroGLYcerin (NITROSTAT) 0.4 mg SL tablet 0.4 MG = 1 Tablet(s), Sublingual, PRN chest pain Yes lisinopril (PRINIVIL;ZESTRIL) 5 mg tablet 5 MG = 1 Tablet(s), PO, Once daily Yes metHOTREXate 2.5 mg Tablet Take 8 tablets by mouth once a week. predniSONE (DELTASONE) 5 mg Tablet Take 1 tablet by mouth daily. Patient not taking: Reported on 12/15/2018 phenazopyridine (PYRIDIUM) 200 mg Tablet as needed. chlorthalidone (HYGROTEN) 25 mg Tablet daily. hydroxychloroquine (PLAQUENIL) 200 mg Tablet Take 1 tablet by mouth 2 times daily. Patient not taking: Reported on 12/15/2018 amLODIPine (NORVASC) 2.5 mg Tablet Take 1 tablet by mouth daily. Patient not taking: Reported on 12/15/2018 flurbiprofen (ANSAID) 100 mg Tablet as needed. tacrolimus (PROTOPIC) 0.1 % Ointment Apply to affected areas on hands, elbows, and feet twice daily on weekdays with occlusion at night Patient not taking: Reported on 12/15/2018 Calcium Carbonate-Vitamin D3 (CALCIUM 600 WITH VITAMIN D3) 600 mg(1,500mg) -200 unit Tab Physical Exam: Despite all this, she looks well today, in fact the best she has in some time. She has a bit of trouble sitting still. Blood pressure 135/74, pulse 75, temperature 36.6 ??C (97.9 ??F), temperature source Oral, height 165.1 cm (5' 5), weight 85.3 kg (188 lb), SpO2 99 %. Skin: She does have some mild cracking of the skin over the dorsum of the MCPs 2 and 3 on the right. HEENT: Unremarkable. Lungs: Clear. Heart: Regular rhythm and rate without murmur, gallop, or rub. Abdomen: Benign. No masses, tenderness, or organomegaly. Extremities: No edema. Good distal pulses. Musculoskeletal: Other than the skin changes described above and background degenerative disease, her hand exam is pretty unremarkable. Wrists, elbows, and shoulders move well. Her hips have mildly diminished range of motion on the left. If anything, range of motion is better on the right, the more symptomatic of the two hips. She has exquisite trochanteric bursitis on that side. The left side is notas bad. Her knees move well. Ankles and distal feet are on remarkable and have no evidence of activesynovitis. Neuro: Grossly intact. Assessment: We'll increase her MTX to 20 mg a week. I told her for the time being stay on the 2 mg of prednisone a day. When the skin is better, she can start tapering the prednisone again. I also gaveher permission to start taking flurbiprofen again. That was stopped due to concerns about her liver while on MTX. She will go to water aerobics in [place] when she gets there and she will let us know how that goes. We were going to give her a prescription for water aerobics in [place], but she says she does not need that. They have some sessions there that she can go to for free. Also, during the course of her discussion today, she brought up the fact that she has been drinking 2 alcoholic beverages a day, usually starting in the afternoon, as a treatment for some of her pain symptoms. I told her that was not a great strategy, especially on the MTX, and she should at least tryto cut down to one alcoholic beverage a day. I asked her to check his back in 1 month and we will goover the results and go over her other issues. We gave the patient the following specific instructions: Patient Instructions Get labs today at 3L. Call or myD for results if you don't hear from us by next week. Further recommendations based on test results. Increase MTX to 8 tabs (= 20 mg) a week. Stay at 2 mg a day on the prednisone until hand cracks heal, then start tapering very slowly again. Resume flurbiprofen. Go to water aerobics in [facility]. Try and cut aback on afternoon drink to one-a-day. Check back at 1 month and let us know how you're doing. Follow up in 6 months or when back from [facility]. Call if problems or concerns. Over 30 minutes of the 40 minute follow-up were spent discussing these problems and their treatment options in [id number] counseling. Orders Placed This Encounter Procedures ??? Comprehensive metabolic panel (non-fasting) ??? CBC (with Diff) ??? TSH ??? Folate, serum ??? Vitamin B12 ??? T4, free ??? Hemogram ??? Differential, Automated Visit Diagnoses: 1. Psoriasiform dermatitis 2. Primary osteoarthritis involving multiple joints 3. High risk medication use 4. Macrocytosis 5. Chronic right-sided low back pain without sciatica 6. Hypothyroidism, unspecified type 7. Psoriatic arthritis Results for EMANI DELONG ( ) Ref. Range 12/15/2018 12:35 WBC Latest Ref Range: 4.0 - 9.5 x10(3)/mcL 5.7 RBC Latest Ref Range: 4.00 - 5.21 x10(6)/mcL 4.31 Hemoglobin Latest Ref Range: 11.7 - 15.5 gm/dL 14.7 Hematocrit Latest Ref Range: 35.7 - 45.8 % 45.1 MCV Latest Ref Range: 82.6 - 94.4 fL 104.6 (H) MCH Latest Ref Range: 27.1 - 32.0 pg 34.1 (H) MCHC Latest Ref Range: 31.7 - 35.0 gm/dL 32.6 RDWSD Latest Ref Range: 37.0 - 46.0 fL 48.1 (H) RDWCV Latest Ref Range: 11.5 - 14.1 % 12.3 Platelets Latest Ref Range: 145 - 357 x10(3)/mcL 274 MPV Latest Ref Range: 7.6 - 12.9 fL 8.8 nRBC % Auto Latest Units: % 0.0 nRBC Abs Auto Latest Ref Range: 0.000 - 0.000 x10(3)/mcL 0.000 Neutr Abs (ANC) Latest Ref Range: 1.70 - 6.10 x10(3)/mcL 3.99 Neutrophils % Latest Units: % 70.5 Immature Gran % Latest Units: % 0.20 Lymphocytes % Latest Units: % 20.5 Monocytes % Latest Units: % 6.0 Eosinophils % Latest Units: % 2.3 Basophils % Latest Units: % 0.5 Anuja Gran Abs Latest Ref Range: 0.00 - 0.04 x10(3)/mcL 0.01 Lymphocytes Abs Latest Ref Range: 0.9 - 3.2 x10(3)/mcL 1.2 Monocyte Abs Latest Ref Range: 0.3 - 0.9 x10(3)/mcL 0.3 Eosinophils Abs Latest Ref Range: 0.0 - 0.4 x10(3)/mcL 0.1 Basophils Abs Latest Ref Range: 0.0 - 0.1 x10(3)/mcL 0.0 Sodium Latest Ref Range: 135 - 145 mmol/L 142 Potassium Latest Ref Range: 3.5 - 5.0 mmol/L 5.0 Chloride Latest Ref Range: 98 - 107 mmol/L 101 CO2 Latest Ref Range: 22 - 31 mmol/L 27 Anion Gap Latest Ref Range: 5 - 15 mmol/L 14 BUN Latest Ref Range: 8 - 18 mg/dL 18 Creatinine Latest Ref Range: 0.70 - 1.20 mg/dL 1.17 eGFR Latest Ref Range: >=60 mL/min/1.73 m?? 46 (L) Glucose Lvl Latest Ref Range: 65 - 199 mg/dL 112 Calcium Latest Ref Range: 8.5 - 10.5 mg/dL 10.0 Total Protein Latest Ref Range: 6.1 - 8.0 gm/dL 7.7 Albumin Latest Ref Range: 3.2 - 5.2 gm/dL 4.7 Total Bilirubin Latest Ref Range: 0.2 - 1.3 mg/dL 0.9 Alk Phos Latest Ref Range: 35 - 105 unit/L 79 AST Latest Ref Range: 0 - 30 unit/L 22 ALT Latest Ref Range: 0 - 30 unit/L 19 Folate Lvl Latest Ref Range: 4.8 - 24.2 ng/mL >20.0 Vitamin B-12 Latest Ref Range: 232 - 1,245 pg/mL 951 Free T4 Latest Ref Range: 0.93 - 1.70 ng/dL 1.33 TSH Latest Ref Range: 0.27 - 4.20 mcIU/mL 2.09 CREATININE CLEARANCE documented in this encounter Plan of Treatment Upcoming Encounters Date Type Specialty Care Team Description 10/31/2021 Office Visit Rheumatology Bert Loera MD [facility] [address] RHEUMATOLOGY DEP [place], [place] [address] (Wo rk) documented as of this encounter Procedures Procedure Name Priority Date/Time Associated Diagnosis Comme nts HEMOGRAM Routine 12/15/2018 12:35 High risk medication Res ults for this PM EDT use procedure are in Macrocytosis the results section. DIFFERENTIAL, Routine 12/15/2018 12:35 High risk medication Re sults for this AUTOMATED PM EDT use procedure are in Macrocytosis the results section. HC CBC,PLT & AUTO DIFF Routine 12/15/2018 12:35 High risk medi cation PM EDT use Macrocytosis HC THYROID STIMULATING Routine 12/15/2018 12:35 Hypothyroidism , Results for this HORMONE, SERUM PM EDT unspecified type procedure are in the results section. HC VENIPUNCTURE Routine 12/15/2018 12:35 Hypothyroidism, Resul ts for this PM EDT unspecified type procedure a re in the results section. HC FOLATE, SERUM Routine 12/15/2018 12:35 Macrocytosis Results for this PM EDT procedure are i n the results section. HC VITAMIN B12 SERUM Routine 12/15/2018 12:35 Macrocytosis Res ults for this PM EDT procedure are i n the results section. COMPREHENSIVE Routine 12/15/2018 12:35 High risk medication Re sults for this METABOLIC PANEL PM EDT use procedure ar e in (NON-FASTING) the results section. documented in this encounter Results Differential, Automated (12/15/2018 12:35 PM EDT) P athologist Signature Neutrophils % 70.5 % [facility] Neutr Abs (ANC) 3.99 1.70 - [facility] 6.10 [facility] x10(3)/[facility] LABORATORY Lymphocytes % 20.5 % [facility] Lymphocytes Abs 1.2 0.9 - 3.2 [facility] x10(3)/[facility] LABORATORY Monocytes % 6.0 % [facility] Monocyte Abs 0.3 0.3 - 0.9 [facility] x10(3)/[facility] LABORATORY Eosinophils % 2.3 % [facility] Eosinophils Abs 0.1 0.0 - 0.4 [facility] x10(3)/[facility] LABORATORY Basophils % 0.5 % [facility] Basophils Abs 0.0 0.0 - 0.1 [facility] x10(3)/[facility] LABORATORY Immature Gran % 0.20 % [facility] Comment: Immature granulocytes(IG's)percentage an d absolute count will include metamyelocytes, myelocytes, and promyelo cytes. Blood smears from CBCs yielding IG's will be scanned manually for concor dance. If this scan disagrees with the automated IG or if promyelocytes are not ed, a manual differential will be performed. Anuja Gran Abs 0.01 0.00 - 0.04 x10(3)/[facility] Specimen Anatomical Collection Method Collection Time Receive d Time (Source) Location / / Volume Laterality Blood specimen 12/15/2018 12:35 9 (specimen) PM EDT 12:44 PM EDT Resulting Agency Comment Spec In Lab Alton Loera MD HEMATOLOGY ORDERABLES Performing Organization Address City/State/ZIP Code Phon e Number [place] [phone] (ABNORMAL) Hemogram (12/15/2018 12:35 PM EDT) [facility] gist Method Time Signature WBC 5.7 4.0 - 9.5 [facility] x10(3)/[facility] LABORATORY RBC 4.31 4.00 - [facility] 5.21 [facility] x10(6)/[facility] LABORATORY Hemoglobin 14.7 11.7 - [facility] 15[facility] gm/dL [facility] Hematocrit 45.1 35.7 - [facility] 45.8 % [facility] MCV 104.6 (H) 82.6 - [facility] 94.4 [facility] LABORATORY MCH 34.1 (H) 27.1 - [place] 32.0 pg [facility] MCHC 32.6 31.7 - [facility] 35.[facility] gm/dL [facility] Platelets 274 145 - 357 [facility] x10(3)/[facility] LABORATORY RDWSD 48.1 (H) 37.0 - [facility] 46.0 [facility] LAB[facility]ATORY RDWCV 12.3 11.5 - [facility] 14.1 % [facility] LAB[facility] MPV 8.8 7.6 - 12.9 [facility] LABORATORY nRBC % Auto 0.0 % [facility] nRBC Abs Auto 0.000 0.000 - [facility] 0.000 [facility] x10(3)/[facility] LABORATORY Specimen Anatomical Collection Method Collection Time Receive d Time (Source) Location / / Volume Laterality Blood specimen 12/15/2018 12:35 9 (specimen) PM EDT 12:44 PM EDT Resulting Agency Comment Spec In Lab Alton Loera MD HEMATOLOGY ORDERABLES Performing Organization Address City/State/ZIP Code Phon e Number [address] T4, free (12/15/2018 12:35 PM EDT) P athologist Signature Free T4 1.33 0.93 - 1.70 [facility] [place] ng/dL [facility]ORY Specimen Anatomical Collection Method Collection Time Receive d Time (Source) Location / / Volume Laterality Blood specimen 12/15/2018 12:35 9 (specimen) PM EDT 12:44 PM EDT Resulting Agency Comment Spec In Lab Alton Loera MD CHEMISTRY ORDERABLES Performing Organization Address City/State/ZIP Code Phon e Number [address] Vitamin B12 (12/15/2018 12:35 PM EDT) athologist Signature Vitamin B-12 951 232 - 1,245 [facility]ORY Specimen Anatomical Collection Method Collection Time Receive d Time (Source) Location / / Volume Laterality Blood specimen 12/15/2018 12:35 9 (specimen) PM EDT 12:44 PM EDT Resulting Agency Comment Spec In Lab Alton Loera MD CHEMISTRY ORDERABLES Performing Organization Address City/State/ZIP Code Phon e Number [address] Folate, serum (12/15/2018 12:35 PM EDT) athologist Signature Folate Lvl >20.0 4.8 - 24.2 [facility] [place] ng/mL [facility] LABOR[facility]ORY Specimen Anatomical Collection Method Collection Time Receive d Time (Source) Location / / Volume Laterality Blood specimen 12/15/2018 12:35 9 (specimen) PM EDT 12:44 PM EDT Resulting Agency Comment Spec In Lab Alton Loera MD CHEMISTRY ORDERABLES Performing Organization Address City/State/ZIP Code Phon e Number [address] TSH (12/15/2018 12:35 PM EDT) athologist Signature TSH 2.09 0.27 - 4.20 [facility] mcIU/mL [facility] LABOR[facility]ORY Specimen Anatomical Collection Method Collection Time Receive d Time (Source) Location / / Volume Laterality Blood specimen 12/15/2018 12:35 9 (specimen) PM EDT 12:44 PM EDT Resulting Agency Comment Spec In Lab Alton Loera MD CHEMISTRY ORDERABLES Performing Organization Address City/[facility] [place] [address] (ABNORMAL) Comprehensive metabolic panel (non-fasting) (12/15/2018 12:35 PM EDT) athologist Signature Glucose Lvl 112 65 - 199 [facility] mg/dL [facility] Comment: Diabetes: >=200 mg/dL plus symp toms BUN 18 8 - 18 mg/dL [facility] Creatinine 1.17 0.70 - 1.20 mg/dL [facility] Sodium 142 135 - 145 mmol/L [facility] Potassium 5.0 3.5 - 5.0 mmol/L [facility] Comment: Please note: ??Patients with WBC >100,00 0 may have falsely elevated Potassium levels. ??For accurate Potassium quantif ication in these patients send serum separator tube (gold top) for subsequent determinations. ??Contact the Clinical Chemistry Laboratory if there are any qu estions. Chloride 101 98 - 107 mmol/L [facility] CO2 27 22 - 31 mmol/L [facility] Anion Gap 14 5 - 15 mmol/L [facility] Calcium 10.0 8.5 - 10.5 mg/dL [facility] Total Protein 7.7 6.1 - 8.0 gm/dL [facility] Albumin 4.7 3.2 - 5.2 gm/dL [facility] AST 22 0 - 30 unit/L [facility] ALT 19 0 - 30 unit/L [facility] Alk Phos 79 35 - 105 unit/L [facility] Total Bilirubin 0.9 0.2 - 1.3 mg/dL [facility] Estimated GFR 46 (L) >=60 mL/min/1.73 m?? [facility] Comment: The eGFR was calculated using the CKD-EP I equation. As with all creatinine based estimates of kidney function, eGFR values calculated with the CKD-EPI equation are not accurate in patients wi th acute kidney failure, extremes of body mass or the acutely ill. [email or web address]/[facility] [place] eGFR 53 (L) >=60 mL/min/1.73 m?? [facility] Comment: The eGFR was calculated using the CKD-EP I equation. As with all creatinine based estimates of kidney function, eGFR values calculated with the CKD-EPI equation are not accurate in patients wi th acute kidney failure, extremes of body mass or the acutely ill. [email or web address] Specimen Anatomical Collection Method Collection Time Receive d Time (Source) Location / / Volume Laterality Blood specimen 12/15/2018 12:35 9 (specimen) PM EDT 12:44 PM EDT Resulting Agency Comment Spec In Lab Alton Loera MD CHEMISTRY ORDERABLES Performing Organization Address City/State/[place] [address] documented in this encounter Visit Diagnoses Diagnosis Psoriasiform dermatitis Other psoriasis and similar disorders Primary osteoarthritis involving multipl e joints High risk medication use Encounter for long-term (current) use of other medications Macrocytosis Other specified diseases of blood and bl ood-forming organs Chronic right-sided low back pain withou t sciatica Hypothyroidism, unspecified type Psoriatic arthritis Psoriatic arthropathy documented in this encounter Care Teams Lugger Relationship Specialty Start Date End Date Kristyn Whitehead MD PCP - General 01/16/10 [address] [place] [address] documented as of this encounter
--- OUTSIDE RECORDS SUMMARY | 2021-08-22 09:42 | XMS_ITS | Encounter Summary ---
:1945 Author Organization [place] [address] Care Team Providers Name Role Phone Kristyn Whitehead MD Primary Care Provider Encounter Details Date Type Department Care Team Description 11/08/2020 Hospital Encounter XRay at [facility] Loera, Augustineopher Low back pain, 1 [facility] [place] [address] RHEUMAT[address]Y DEPT. [phone] [place], [place] [address] (Wo rk) Social History Tobacco Use Types Packs/Day Years Used Date Former Smoker Smokeless Tobacco: Never Used Sex Assigned at Date Recorded Not on file documented as of this encounter Medications at Time of Discharge Medication Sig Dispensed Refills Start Date End Date calcium carbonate (CALCIUM Take by mouth. 0 300 ORAL) EPINEPHrine 0.3 mg/0.3 mL Inject into the 0 09/23 Auto-Injector muscle. vit A,C,Z-uaic-cwtzsv Take by mouth. 0 09/23/2012 (Ocuvite PreserVision) 7,160 unit- 113 mg-100 unit Tablet folic acid (Folvite) 1 mg Take 1 tablet by 90 tablet 3 04/0 10/2020 TabletIndications: High mouth once daily risk medication use triamcinolone (KENALOG) 0.1 Apply topically 2 45 g 5 0 03/11/2020 % Cream times daily. predniSONE (Deltasone) 1 mg Take 4 tablets by 360 tablet 3 0 05/21/2019 TabletIndications: Rash mouth daily. folic acid (Folvite) 1 mg Take 1 tablet by 90 tablet 3 03/27 TabletIndications: High mouth daily. risk medication use predniSONE (DELTASONE) 5 mg Take 1 tablet by 90 tablet 3 Tablet mouth daily. phenazopyridine (PYRIDIUM) as needed. 0 9 200 mg Tablet chlorthalidone (HYGROTEN) daily. 0 04/07/2018 25 mg Tablet hydroxychloroquine Take 1 tablet by 180 tablet 3 11/07/2017 (PLAQUENIL) 200 mg mouth 2 times TabletIndications: daily. Psoriasiform dermatitis amLODIPine (NORVASC) 2.5 mg Take 1 tablet by 90 tablet 3 Tablet mouth daily. aspirin 81 mg Tablet, Take 81 mg by 0 Delayed Release (E.C.) mouth daily. cholecalciferol, Vitamin Take by mouth 0 D3, 50 mcg (2,000 unit) daily. Tablet cyanocobalamin, vitamin Inject as 0 B-12, 1,000 mcg/mL Solution directed. Every 3 weeks flurbiprofen (ANSAID) 100 as needed. 0 06/20/2017 mg Tablet pantoprazole (PROTONIX) 40 daily. 0 8 mg Tablet, Delayed Release (E.C.) tacrolimus (PROTOPIC) 0.1 % Apply to affected 60 g 1 0 07/01/2016 OintmentIndications: areas on hands, Psoriasiform dermatitis elbows, and feet twice daily on weekdays with occlusion at night levothyroxine (SYNTHROID) Take 75 mcg by 0 75 mcg Tablet mouth daily. PARoxetine (PAXIL) 30 mg Take 30 mg by 0 Tablet mouth every morning. atorvastatin (LIPITOR) 40 Take 40 mg by 0 mg Tablet mouth daily. nitroGLYcerin (NITROSTAT) 0.4 MG = 1 0 09/06/2009 0.4 mg SL tablet Tablet(s), Sublingual, PRN chest pain lisinopril Take by mouth 2 0 09/06/2009 (PRINIVIL;ZESTRIL) 5 mg times daily. tablet Calcium Carbonate-Vitamin 0 09/04/2009 D3 (CALCIUM 600 WITH VITAMIN D3) 600 mg(1,500mg) -200 unit Tab metHOTREXate 2.5 mg Take 8 tablets by 104 tablet 3 1 06/19/2021 TabletIndications: mouth once every Psoriatic arthritis week documented as of this encounter Plan of Treatment Upcoming Encounters Date Type Specialty Care Team Description 10/31/2021 Office Visit Rheumatology Bert Loera MD [facility] ER DR RHEUMATOLOGY [place], [place] [address] (Wo rk) documented as of this encounter Procedures Procedure Name Priority Date/Time Associated Diagnosis Comme nts XR LUMBAR SPINE 2 Routine 11/08/2020 4:13 PM Low back pain, Re sults for this OR 3 VIEWS EDT non-specific procedure are i n the results section. documented in this encounter Results XR Lumbar Spine 2 Or 3 Views (Generic) (11/08/2020 4:13 PM EDT) Anatomical Region Laterality Modality L-spine N/A Digital Radiography Specimen (Source) Anatomical Location Collection Method / Collectio n Time Received Time / Laterality Volume Impressions 11/08/2020 4:30 PM EDT Degenerative changes most notable at the L5-S1 intervertebral disc space are present at L4-5 and L2-3. Thank you for letting us participate in the care of this patient. ??If you are a health care provider and have any questi ons regarding this report, please contact the number below. ??For patients who have questions please contact the health date night caregiver that requested your imaging first. ? Electronically signed by: Melissa Erickson MD , [facility] ([phone]), at 11/08/2020 4:30 PM Narrative 11/08/2020 4:30 PM EDT EXAMINATION: XR LUMBAR SPINE 2 OR 3 VIEWS (GENERIC) CLINICAL HISTORY: Midline limbar spine p ain, and tenderness. DDD, etc.? TECHNIQUE: 2 views of the lumbar spine COMPARISON: September 05, 2017 FINDINGS: 5 lumbar-type nonrib-bearing vertebral b odies. Lumbar lordosis maintained. Mild narrowing at the L2-3 neural forami na and intervertebral disc space. Mild narrowing at the L4-5 neural foramina. P rogression of degenerative changes characterized by severe narrowing at the L5-S1 intravertebral disc space with osteophytes and subchondral sclerosis. A ccompanying narrowing of L5-S1 neural foramina. No acute bony fracture. Procedure Note Melissa Erickson MD - 11/08/2020 EXAMINATION: XR LUMBAR SPINE 2 OR 3 VIEW S (GENERIC) CLINICAL HISTORY: Midline limbar spine p ain, and tenderness. DDD, etc.? TECHNIQUE: 2 views of the lumbar spine COMPARISON: September 05, 2017 FINDINGS: 5 lumbar-type nonrib-bearing vertebral b odies. Lumbar lordosis maintained. Mild narrowing at the L2-3 neural forami na and intervertebral disc space. Mild narrowing at the L4-5 neural foramina. P rogression of degenerative changes characterized by severe narrowing at the L5-S1 intravertebral disc space with osteophytes and subchondral sclerosis. A ccompanying narrowing of L5-S1 neural foramina. No acute bony fracture. IMPRESSION Degenerative changes most notable at the L5-S1 intervertebral disc space are present at L4-5 and L2-3. Thank you for letting us participate in the care of this patient. If you are a health care provider and have any questi ons regarding this report, please contact the number below. For patients w ho have questions please contact the health date night caregiver that requested your imaging first. Electronically signed by: Melissa Erickson MD , [facility] ([phone]), at 11/08/2020 4:30 PM Alton Loera MD IMG DX ORDERABLES documented in this encounter Visit Diagnoses Diagnosis Low back pain, non-specific documented in this encounter Care Teams Record Label Intern Relationship Specialty Start Date End Date Kristyn Whitehead MD PCP - General 01/16/10 [address] [place] [address] documented as of this encounter
--- OUTSIDE RECORDS SUMMARY | 2021-08-22 09:42 | XMS_ITS | Encounter Summary ---
:1945 Author Organization [facility] [place] [address] Care Team Providers Name Role Phone Kristyn Whitehead MD Primary Care Provider Encounter Details Date Type Department Care Team Description 07/27/2018 Orders Only [place] [facility] [place] Loera MD [facility] [place] [address] RHEUMATOLOGY DEPT. [phone] [place], [place] [address] (Wo rk) Social History Tobacco Use Types Packs/Day Years Used Date Former Smoker Smokeless Tobacco: Never Used Sex Assigned at Date Recorded Not on file documented as of this encounter Plan of Treatment Upcoming Encounters Date Type Specialty Care Team Description 10/31/2021 Office Visit Rheumatology Bert Loera MD [facility] ER RHEUMATOLOGY DEP T. [place], [place] [address] (Wo rk) documented as of this encounter Visit Diagnoses Diagnosis Rash Rash and other nonspecific skin eruption documented in this encounter Care Teams Nuclear Station Operator Relationship Specialty Start Date End Date Kristyn Whitehead MD PCP - General 01/16/10 [address] [place], [place] [address] documented as of this encounter
--- OUTSIDE RECORDS SUMMARY | 2021-08-22 09:42 | XMS_ITS | Encounter Summary ---
:1945 Author Organization [facility] [address] Care Team Providers Name Role Phone Kristyn Whitehead MD Primary Care Provider Encounter Details Date Type Department Care Team Description 03/11/2020 Orders Only Rheumatology at [facility] Alton Loera [place] [facility] [place] [address] RHEUMATOLOGY DEPT. [phone] [place], [place] [address] (Wo rk) Social History Tobacco Use Types Packs/Day Years Used Date Former Smoker Smokeless Tobacco: Never Used Sex Assigned at Date Recorded Not on file documented as of this encounter Plan of Treatment Upcoming Encounters Date Type Specialty Care Team Description 10/31/2021 Office Visit Rheumatology Bert Loera MD [facility] ER RHEUMATOLOGY DEP T. [place], [place] [address] (Wo rk) documented as of this encounter Visit Diagnoses Not on filedocumented in this encounter Care Teams Mining Detail Draftsperson Relationship Specialty Start Date End Date Kristyn Whitehead MD PCP - General 01/16/10 [address] [place], [place] [address] documented as of this encounter
--- OUTSIDE RECORDS SUMMARY | 2021-08-22 09:42 | XMS_ITS | Encounter Summary ---
:1945 Author Organization [facility] [place] [address] Care Team Providers Name Role Phone Kristyn Whitehead MD Primary Care Provider Encounter Details Date Type Department Care Team Description 07/18/2020 TH Visit Rheumatology at [facility] [place] Alton Loera Psoriasiform dermatitis; (TeleHealth) [facility] MD [place] [address] RHEUMATOLOGY DEPT. [phone] [place], [place] [address] (Wo rk) Social History Tobacco Use Types Packs/Day Years Used Date Former Smoker Smokeless Tobacco: Never Used Sex Assigned at Date Recorded Not on file documented as of this encounter Progress Notes Alton Loera MD - 07/18/2020 2:00 PM EDT Did not contact patient by telephone in time due to doctor's delay. No charge . Visit rescheduled for tomorrow. documented in this encounter Plan of Treatment Upcoming Encounters Date Type Specialty Care Team Description 10/31/2021 Office Visit Rheumatology Bert Loera MD [facility] RHEUMATOLOGY DEP T. [place], [place] [address] (Wo rk) documented as of this encounter Visit Diagnoses Diagnosis Psoriasiform dermatitis Other psoriasis and similar disorders High risk medication use Encounter for long-term (current) use of other medications documented in this encounter Care Teams Regulatory Assistant Relationship Specialty Start Date End Date Kristyn Whitehead MD PCP - General 01/16/10 [address] [place] [address] documented as of this encounter
--- OUTSIDE RECORDS SUMMARY | 2021-08-22 09:42 | XMS_ITS | Encounter Summary ---
:1945 Author Organization [facility] [place] [address] Care Team Providers Name Role Phone Kristyn Whitehead MD Primary Care Provider Encounter Details Date Type Department Care Team Description 07/19/2020 TH Visit Rheumatology at [facility] Alton Loera High risk medication use; (TeleHealth) [facility] MD [place] Primary osteoarthritis involving multipl e joints; [facility] [place] [address] RHEUMATOLOGY DEPT. [phone] [place], [place] [address] (Wo rk) Social History Tobacco Use Types Packs/Day Years Used Date Former Smoker Smokeless Tobacco: Never Used Sex Assigned at Date Recorded Not on file documented as of this encounter Progress Notes Alton Loera MD - 07/19/2020 10:00 AM EDT Images from the original note were not included. Rheumatology Clinic: Dr. 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 She also has involvement of the elbows and distal feet. She also has background osteoarthritis and soft tissue problems, but no firm evidence of psoriatic arthritis. Skin biopsy is been inconclusive. Because she was requiring oral prednisone to control the rash, we decided to put her on methotrexate as a steroid-sparing agent after failing Plaquenil, and that has turned out to be very effective. With that, she has notrequired steroids in over a year. She does have occasional minor breakouts usually on the dorsum of one knuckle and also on the left second toe, which she sent me nice pictures of at her last visit back in December. All of these areas responded well to short rounds of topical triamcinolone cream. So right now she is very happy with the way things are going. Curiously her elbows still break out a lot,triamcinolone helps there. Interestingly she spends the wong down in [place], but the marvin up here. She has a hot tub at her home in [place] and that helps the elbows. She is noted no effect of the sun on her rashes 1 way or the other. In terms of the pandemic, she received her [employer] COVID-19 vaccines down in [place]. She got her second shot in May. She had no major reactions other than somelethargy and headache for a day or 2. 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 She notes that several family members up here were exposed including grandsons but they all tested negative. As far as this winter in [place], she says it was colder than usual. They stay in [place], [place], which is about 15 miles south of [place]. They are near [place], a somewhat infamous senior living community with a high rate of STDs. They do visit there sometimes because apparently they have live entertainment that is open to the general public. They will be heading back down to [place] in November. Patient Active Problem List Diagnosis Code ??? CIS - Anxiety ??? CIS - Chest pain ??? CIS - Depression ??? CIS - Hyperlipidemia ??? CIS - Hypothyroid ??? CAD (coronary artery disease) I25.10 ??? 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 Unstable angina I20.0 ??? 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 Eczema L30.9 ??? High risk medication use Z79.899 Medications 12/15/18 1131 Medication Sig Taking? metHOTREXate 2.5 mg Tablet Take 8 tablets by mouth once every week folic acid (Folvite) 1 mg Tablet Take 1 tablet by mouth once daily triamcinolone (KENALOG) 0.1 % Cream Apply topically 2 times daily. predniSONE (Deltasone) 1 mg Tablet Take 4 tablets by mouth daily. folic acid (Folvite) 1 mg Tablet Take 1 tablet by mouth daily. predniSONE (DELTASONE) 5 mg Tablet Take 1 [...] daily. Patient not taking: Reported on 12/15/2018 aspirin 81 mg Tablet, Delayed Release (E.C.) Take 81 mg by mouth daily. cholecalciferol, Vitamin D3, (VITAMIN D-3) 2,000 unit Tablet Take by mouth daily. cyanocobalamin, vitamin B-12, 1,000 mcg/mL Solution Inject as directed. Every 3 weeks flurbiprofen (ANSAID) 100 mg Tablet as needed. pantoprazole (PROTONIX) 40 mg Tablet, Delayed Release (E.C.) daily. tacrolimus (PROTOPIC) 0.1 % Ointment Apply to affected areas on hands, elbows, and feet twice daily on weekdays with occlusion at night Patient not taking: Reported on 12/15/2018 levothyroxine (SYNTHROID) 75 mcg Tablet Take 75 mcg by mouth daily. PARoxetine (PAXIL) 30 mg Tablet Take 30 mg by mouth every morning. atorvastatin (LIPITOR) 40 mg Tablet Take 40 mg by mouth daily. nitroGLYcerin (NITROSTAT) 0.4 mg SL tablet 0.4 MG = 1 Tablet(s), Sublingual, PRN chest pain lisinopril (PRINIVIL;ZESTRIL) 5 mg tablet 5 MG = 1 Tablet(s), PO, Once daily Calcium Carbonate-Vitamin D3 (CALCIUM 600 WITH VITAMIN D3) 600 mg(1,500mg) -200 unit Tab Physical Exam: Phone visit only. She sounds well. She is in good spirits. Assessment: We had a long discussion about her situation, but basically she is doing well. The methotrexate has turned out to be a great medication for her. She has not had to resort to prednisone for her rashes in well over a year. She uses triamcinolone cream on her intermittent, residual rashes, and that is effective. She just had her methotrexate labs back on 07/07/2020 and they looked fine (see below). We will see her in follow-up in late October, before she heads down to [place]. If that doesnot work out for whatever reason, we can to a TeleHealth visit with her from [place]. She knows that she can contact me in the interim if she has any problems. Total visit time: 35 minutes. Visit level: 61272. Visit Diagnoses: 1. High risk medication use 2. Primary osteoarthritis involving multiple joints 3. Psoriasiform dermatitis documented in this encounter Plan of Treatment Upcoming Encounters Date Type Specialty Care Team Description 10/31/2021 Office Visit Rheumatology Bert Loera MD [facility] DR RHEUMATOLOGY [place], [place] [address] (Wo rk) documented as of this encounter Visit Diagnoses Diagnosis High risk medication use Encounter for long-term (current) use of other medications Primary osteoarthritis involving multipl e joints Psoriasiform dermatitis Other psoriasis and similar disorders documented in this encounter Care Teams Motorboat Mechanic Helper Relationship Specialty Start Date End Date Kristyn Whitehead MD PCP - General 01/16/10 [address] [place] [address] documented as of this encounter
--- OUTSIDE RECORDS SUMMARY | 2021-08-22 09:42 | XMS_ITS | Encounter Summary ---
:1945 Author Organization [facility] [place] [address] Care Team Providers Name Role Phone Kristyn Whitehead MD Primary Care Provider Reason for Visit Reason Onset Date Comments Medication Refill 11/06/2017 Encounter Details Date Type Department Care Team Description 11/06/2017 [place] [facility] [place]dy Esteban RN [place] [address] Social History Tobacco Use Types Packs/Day Years Used Date Former Smoker Smokeless Tobacco: Never Used Sex Assigned at Date Recorded Not on file documented as of this encounter Miscellaneous Notes Telephone Encounter - Freddy Esteban RN - 11/14/2017 1:47 PM EDT Faxed to pharmacy. Telephone Encounter - Freddy Esteban RN - 11/06/2017 3:07 PM EDT See new Rx to go to Pharmacy. Comes in packs of 60@ $24.99 per pack. documented in this encounter Plan of Treatment Upcoming Encounters Date Type Specialty Care Team Description 10/31/2021 Office Visit Rheumatology Bert Loera MD [facility] DR RHEUMATOLOGY [place], [place] [address] (Wo rk) documented as of this encounter Visit Diagnoses Diagnosis Psoriasiform dermatitis Other psoriasis and similar disorders documented in this encounter Care Teams Comic Book Writer Relationship Specialty Start Date End Date Kristyn Whitehead MD PCP - General 01/16/10 [address] [place] [address] documented as of this encounter
--- OUTSIDE RECORDS SUMMARY | 2021-08-22 09:42 | XMS_ITS | Encounter Summary ---
:1945 Author Organization [facility] [place] [address] Care Team Providers Name Role Phone Kristyn Whitehead MD Primary Care Provider Encounter Details Date Type Department Care Team Description 07/14/2018 Office [place] [facility] [place]ton Loera Psoriasiform dermatitis; [facility] MD [place] High risk medication use; [facility] Primary osteoarthritis invol ving multiple joints; [place], [place] Psoriatic arthritis [id number] RHEUMATOLOGY DEPT. [phone] [place], [place] [address] (Wo rk) Social History Tobacco Use Types Packs/Day Years Used Date Former Smoker Smokeless Tobacco: Never Used Sex Assigned at Date Recorded Not on file documented as of this encounter Last Filed Vital Signs Vital Sign Reading Time Taken Comments Blood Pressure 126/78 07/14/2018 11:11 AM EDT Pulse 66 07/14/2018 11:11 AM EDT Temperature 36.7 ??C (98 ??F) 07/14/2018 11:11 AM EDT Respiratory Rate - - Oxygen Saturation 98% 07/14/2018 11:11 AM EDT Inhaled Oxygen Concentration - - Weight 84.8 kg (187 lb) 07/14/2018 11:11 AM EDT Height 165.1 cm (5' 5) 07/14/2018 11:11 AM EDT Body Mass Index 31.12 07/14/2018 11:11 AM EDT documented in this encounter Patient Instructions Patient InstructionsAlton Loera MD - 07/14/2018 11:00 AM EDT For now, continue on the 6 tabs of methotrexate a week and the 4 mg of prednisone a day. In 2 weeks, try going down on the prednisone from 4 to 3 mg a day. Let us know how that goes and we'll adjust accordingly. Stay on folic acid, one a day. New Rxs for methotrexate and folic acid sent in. Get methotrexate labs in 2 months and then every [address] [place] Follow up in 6 months. Stay in touch by [facility]. documented in this encounter Progress Notes Alton Loera MD - 07/14/2018 11:00 AM EDT Rheumatology Clinic: Dr. 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 Please seeour one and only one note on her from back on 09/05/2017. Her lab work at that time was unimpressive,except for some pyuria and bacturia. X-rays showed osteoarthritis of the hands as well as degenerative arthritis of the lumbar spine. There was no evidence of psoriatic changes. Unfortunately, the skinrash was really making her life difficult. By that point in time, she had already found that prednisone seemed to be the only thing that took care of it consistently. She had a couple of biopsies through dermatology, but there was no definitive diagnosis. Ankle 08/14/2016: The differential diagnosis is broad and would include an allergic or ??eczematous processes versus an id or drug-type dermal hypersensitivity reaction (the ??absence of eosinophils provides less support for the latter). The present findings ??do not suggest??connective tissue disease or psoriasis. Hand 07/31/2016: ...spongiotic dermatitis is favored. There are rare necrotic keratinocytes, and a co-existant interface process cannot be ??ruled out. Psoriasis can show spongiotic features on acral sites, but there are not enough ??findings of psoriasis to make that diagnosis. We put her on 20 mg of prednisone a day, and as expected from her previous experience, that pretty much took care of the rash. We had her taper and when it came back, we added Plaquenil. We then tried to taper again, and it came back and so we added methotrexate. We have been back and forth multiple times since then and we have multiple pictures in the medical records sent up from [place]. In summary, basically whenever we tried to taper the prednisone, the rash would come out. That is until we got her methotrexate up to an acceptable level. She just went from 12.5 to 15 mg a week. Her prednisone dose is now 4 mg a day and her hands look the best they have in a couple of years. She has no problem with function now. She does note that she did some cleaning and she was using some type of rubbery glove over cotton gloves and yet still developed a rash. It does not sound like it was quite the same as the primary rash. In any case, I gave her a couple of nitrile gloves and a couple of oat-derived gloves and she will try those. Patient Active Problem List Diagnosis Code ??? CIS - Anxiety ??? CIS - Chest pain ??? CIS - Depression ??? CIS - Hyperlipidemia ??? CIS - Hypothyroid ??? CAD (coronary artery disease) I25.10 ??? 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 Unstable angina I20.0 Medications 07/14/18 1115 Medication Sig Taking? phenazopyridine (PYRIDIUM) 200 mg Tablet as needed. Yes metHOTREXate 2.5 mg Tablet Take 6 tablets by mouth once a week. Yes folic acid (FOLVITE) 1 mg Tablet Take 1 tablet by mouth daily. Yes hydroxychloroquine (PLAQUENIL) 200 mg Tablet Take 1 tablet by mouth 2 times daily. Yes predniSONE (DELTASONE) 1 mg Tablet Take 4 tablets by mouth daily. Yes amLODIPine (NORVASC) 2.5 mg Tablet Take 1 tablet by mouth daily. Yes aspirin 81 mg Tablet, Delayed Release (E.C.) Take 81 mg by mouth daily. Yes cholecalciferol, Vitamin D3, (VITAMIN D-3) 2,000 unit Tablet Take by mouth daily. Yes cyanocobalamin, vitamin B-12, 1,000 mcg/mL Solution Inject as directed. Every 3 weeks Yes flurbiprofen (ANSAID) 100 mg Tablet as needed. Yes pantoprazole (PROTONIX) 40 mg Tablet, Delayed Release (E.C.) daily. Yes tacrolimus (PROTOPIC) 0.1 % Ointment Apply to affected areas on hands, elbows, and feet twice daily on weekdays with occlusion at night Yes levothyroxine (SYNTHROID) 75 mcg Tablet Take 75 mcg by mouth daily. Yes PARoxetine (PAXIL) 30 mg Tablet Take 30 mg by mouth every morning. Yes atorvastatin (LIPITOR) 40 mg Tablet Take 40 mg by mouth daily. Yes lisinopril (PRINIVIL;ZESTRIL) 5 mg tablet 5 MG = 1 Tablet(s), PO, Once daily Yes Calcium Carbonate-Vitamin D3 (CALCIUM 600 WITH VITAMIN D3) 600 mg(1,500mg) -200 unit Tab Yes chlorthalidone (HYGROTEN) 25 mg Tablet daily. nitroGLYcerin (NITROSTAT) 0.4 mg SL tablet 0.4 MG = 1 Tablet(s), Sublingual, PRN chest pain Patient not taking: No sig reported Physical Exam: She looks well. She is tanned and in good spirits. Blood pressure 126/78, pulse 66, temperature 36.7 ??C (98 ??F), height 165.1 cm (5' 5), weight 84.8kg (187 lb), SpO2 98 %. Skin: Tanned. The rash is almost completely resolved on the dorsum of her hands. She does have some mild dry patches on her elbows. HEENT: Unremarkable. Lungs: Clear. Heart: Regular rhythm and rate without murmur, gallop, or rub. Abdomen: Benign. No masses, tenderness, or organomegaly. Extremities: No edema. Good distal pulses. Musculoskeletal: She has the degenerative changes in her hands as described previously. Her musculoskeletal exam is otherwise unchanged and unconcerning. Neuro: Grossly intact. Assessment: We came up with the plan outlined below. Basically her current level of rash and discomfort is very tolerable. She's been on the 15 mg of methotrexate for about a week now. I told her in 2 weeks, to try again to taper the prednisone from 4 to 3 mg a day. She will let us know how thing thatgoes. She just had a set of labs down in [place] that looked fine. We will get her on an [id number] methotrexate lab schedule near home. The ultimate plan is to see if we can taper her completely off prednisone, and failing that, have her on the lowest amount possible. We can then see if she need the Plaquenil to stay in control. I will see her back in 5 months before she heads down to [place] again for the winter. But we will continue to stay in touch. We gave the patient the following specific instructions: Patient Instructions For now, continue on the 6 tabs of methotrexate a week and the 4 mg of prednisone a day. In 2 weeks, try going down on the prednisone from 4 to 3 mg a day. Let us know how that goes and we'll adjust accordingly. Stay on folic acid, one a day. New Rxs for methotrexate and folic acid sent in. Get methotrexate labs in 2 months and then every 3 months up in [facility]. Follow up in 6 months. Stay in touch by [facility]. Over 20 minutes of the 25 minute follow-up were spent discussing these problems and their treatment options in [id number] counseling. Orders Placed This Encounter Procedures ??? CBC (with Diff) ??? Comprehensive metabolic panel (non-fasting) Visit Diagnoses: 1. Psoriasiform dermatitis 2. High risk medication use 3. Primary osteoarthritis involving multiple joints 4. Psoriatic arthritis documented in this encounter Plan of Treatment Upcoming Encounters Date Type Specialty Care Team Description 10/31/2021 Office Visit Rheumatology Bert Loera MD [facility] DR RHEUMATOLOGY [place], [place] [address] (Wo rk) documented as of this encounter Visit Diagnoses Diagnosis Psoriasiform dermatitis Other psoriasis and similar disorders High risk medication use Encounter for long-term (current) use of other medications Primary osteoarthritis involving multipl e joints Psoriatic arthritis Psoriatic arthropathy documented in this encounter Care Teams Assistant Kitchen Manager Relationship Specialty Start Date End Date Kristyn Whitehead MD PCP - General 01/16/10 [address] [place] [address] documented as of this encounter
--- OUTSIDE RECORDS SUMMARY | 2021-08-22 09:42 | XMS_ITS | Clinical Summary ---
:1945 Author Organization [facility] [place] [address] Care Team Providers Name Role Phone Kristyn Whitehead MD Primary Care Provider Allergies Active Allergy Reactions Severity Noted Date Comments Venlafaxine Other (See Comments) 06/28/2016 Letharg y Legumes Anaphylaxis High 06/28/2016 Lettuce Anaphylaxis High 06/28/2016 Soy Anaphylaxis High 06/28/2016 Sulfa (Sulfonamide Antibiotics) High CIS - Hives Tomato Anaphylaxis High 06/28/2016 Medications Medication Sig Dispensed Refills Start Date End Date Status Calcium 0 09/04/2009 Active Carbonate-Vitamin D3 (CALCIUM 600 WITH VITAMIN D3) 600 mg(1,500mg) -200 unit Tab nitroGLYcerin 0.4 MG = 1 0 09/06/2009 Acti ve (NITROSTAT) 0.4 mg SL Tablet(s), tablet Sublingual, PRN chest pain lisinopril Take by mouth 2 0 09/06/2009 Ac tive (PRINIVIL;ZESTRIL) 5 times daily. mg tablet levothyroxine Take 75 mcg by 0 A ctive (SYNTHROID) 75 mcg mouth daily. Tablet PARoxetine (PAXIL) 30 Take 30 mg by 0 Active mg Tablet mouth every morning. atorvastatin (LIPITOR) Take 40 mg by 0 Active 40 mg Tablet mouth daily. tacrolimus (PROTOPIC) Apply to affected 60 g 1 07/01/2016 Active 0.1 % areas on hands, OintmentIndications: elbows, and feet Psoriasiform twice daily on dermatitis weekdays with occlusion at night aspirin 81 mg Tablet, Take 81 mg by 0 Active Delayed Release (E.C.) mouth daily. cholecalciferol, Take by mouth 0 Active Vitamin D3, 50 mcg daily. (2,000 unit) Tablet cyanocobalamin, Inject as 0 Acti ve vitamin B-12, 1,000 directed. Every 3 mcg/mL Solution weeks flurbiprofen (ANSAID) as needed. 0 06/20/2017 Active 100 mg Tablet pantoprazole daily. 0 07/22/2017 Active (PROTONIX) 40 mg Tablet, Delayed Release (E.C.) amLODIPine (NORVASC) Take 1 tablet by 90 tablet 3 09/16/2017 Active 2.5 mg Tablet mouth daily. Additional Information Patient not taking. Reported on 07/24/2021 hydroxychloroquine (PLAQUENIL) Take 1 tablet by 180 tablet 3 0 11/07/2017 Active 200 mg TabletIndications: mouth 2 times daily. Psoriasiform dermatitis Additional Information Patient not taking. Reported on 07/24/2021 phenazopyridine (PYRIDIUM) 200 as needed. 0 03/27/19 19 Active mg Tablet chlorthalidone (HYGROTEN) 25 mg daily. 0 04/07/19 19 Active Tablet predniSONE (DELTASONE) 5 mg Take 1 tablet by mouth 90 tablet 3 07/30/2018 Active Tablet daily. Additional Information Patient not taking. Reported on 07/24/2021 folic acid (Folvite) 1 mg Take 1 tablet by 90 tablet 3 020 Active TabletIndications: High risk mouth daily. medication use predniSONE (Deltasone) 1 mg Take 4 tablets by 360 tablet 3 Active TabletIndications: Rash mouth daily. Additional Information Patient not taking. Reported on 07/24/2021 triamcinolone (KENALOG) 0.1 Apply topically 2 times 45 g 5 03/11/2020 Active % Cream daily. folic acid (Folvite) 1 mg Take 1 tablet by mouth 90 tablet 3 0 06/02/2020 Active TabletIndications: High risk once daily medication use calcium carbonate (CALCIUM Take by mouth. 0 Active 300 ORAL) EPINEPHrine 0.3 mg/0.3 mL Inject into the muscle. 0 09/23/2012 Active Auto-Injector vit A,C,[id number] Take by mouth. 0 09/23/2012 Active (Ocuvite PreserVision) 7,160 unit- 113 mg-100 unit Tablet metHOTREXate 2.5 mg Take 8 tablets by mouth 104 tablet 1 06/19 Active TabletIndications: Psoriatic once every week arthritis Active Problems Problem Noted Date Low back pain, non-specific 11/13/2020 Ischial bursitis 11/13/2020 Primary osteoarthritis involving multiple joints 01/14 Eczema 01/15/2020 High risk medication use 01/15/2020 Unstable angina 09/13/2017 Psoriasiform dermatitis 06/28/2016 CAD (coronary artery disease) 11/03/2015 CIS - Hyperlipidemia 09/05/2009 CIS - Anxiety CIS - Chest pain CIS - Depression CIS - Hypothyroid Encounters Date Type Specialty Care Team Description 07/24/2021 Hospital Encounter Radiology Alton Loera [facility] osteoarthritis involving multiple joints; MD [place] Psoriasiform de rmatitis; Left shoulder p ain, unspecified chronicity; Right hip pain 07/24/2021 Office Visit Rheumatology Alton Loera Primary o steoarthritis involving multiple joints; MD [place] High risk medic ation use; Psoriasiform de rmatitis; Right hip pain; Left shoulder p ain, unspecified chronicity; Piriformis synd gamaliel of right side; Chronic right s acroiliac pain; Chronic right-s ided low back pain without sciatica from Last 3 Months Immunizations Name Administration Dates Next Due DTaP 06/18/2007 Influenza Vaccine (Novel) [id number], Injectable 12/25/2008 Influenza Vaccine, Whole 12/25/2008 Pneumococcal Conjugate (13 Valent) 01/06/2015 Pneumococcal Polyvalent 23 10/26/2009 Zoster Vaccine, Live 02/24/2011 Social History Tobacco Use Types Packs/Day Years Used Date Former Smoker Smokeless Tobacco: Never Used Sex Assigned at Date Recorded Not on file Last Filed Vital Signs Vital Sign Reading Time Taken Comments Blood Pressure 140/83 07/24/2021 10:55 AM EDT Pulse 52 07/24/2021 10:55 AM EDT Temperature 36.2 ??C (97.2 ??F) 07/24/2021 10:55 AM EDT Respiratory Rate 17 07/24/2021 10:55 AM EDT Oxygen Saturation 99% 07/24/2021 10:55 AM EDT Inhaled Oxygen Concentration - - Weight 81.9 kg (180 lb 9.6 oz) 07/24/2021 10:55 AM EDT Height 165.1 cm (5' 5) 07/24/2021 10:55 AM EDT Body Mass Index 30.05 07/24/2021 10:55 AM EDT Plan of Treatment Upcoming Encounters Date Type Specialty Care Team Description 10/31/2021 Office Visit Rheumatology Loera, Bert Junior MD [facility] DR RHEUMATOLOGY DEP . [place], [place] [address] (Wo rk) Health Maintenance Due Date Last Done Comments Covid-19 Vaccine (#1) 1950 Hepatitis C Screening 1963 Tdap adult 1962 Advance Directive 1998 Bone Density Scan 2008 Zoster vaccine (2 of 3) 04/21/2011 02/24/2011 Tetanus vaccine 06/17/2017 06/18/2007 Influenza (Flu) vaccine (1 of 1 - 10/25/2020 12/25/2008, Influenza standard series) Pneumoccocal Vaccine: 65+ Completed 01/06/2015, 10/26/2009 Procedures Procedure Name Priority Date/Time Associated Diagnosis Comme nts XR PELVIS AND LAT Routine 07/24/2021 2:17 PM Primary osteoarth ritis Results for this HIP RIGHT EDT involving multiple procedure are in joints the results Psoriasiform edy matitis section. Right hip pain XR SHOULDER LEFT Routine 07/24/2021 2:17 PM Primary osteoarthr itis Results for this EDT involving multiple procedure are in joints the results Psoriasiform edy matitis section. Left shoulder pain, unspecified chronicity from Last 3 Months Results XR Shoulder Left (Generic) (07/24/2021 2:17 PM EDT) Anatomical Region Laterality Modality Shoulder Left Digital Radiography Specimen (Source) Anatomical Location Collection Method / Collectio n Time Received Time / Laterality Volume Impressions 07/24/2021 2:23 PM EDT Severe glenohumeral osteoarthropathy. Thank you for letting us participate in the care of this patient. ??If you are a health care provider and have any questi ons regarding this report, please contact the number below. ??For patients who have questions please contact the health healthcare project manager that requested your imaging first. ? Electronically signed by: Shane Rollins MD , [facility] ([phone]), at 07/24/2021 2:23 PM Narrative 07/24/2021 2:23 PM EDT EXAMINATION: XR SHOULDER LEFT (GENERIC) CLINICAL HISTORY: Pain, decreased ROM. ? GH OA, rotator cuff arhropathy, etc. TECHNIQUE: 4 views LEFT shoulder COMPARISON: None FINDINGS: No fracture. No dislocation. Large gleno humeral osteophytes. Severe glenohumeral joint space narrowing. There is remodeli ng of the glenoid with biconcave appearance. Humeral head is slightly pos teriorly subluxed. There is mild flattening of the humeral head articular surface. Normal acromioclavicular joint. Procedure Note Shane Rollins MD - 07/24/2021Formatting o f this note might be different from the original. EXAMINATION: XR SHOULDER LEFT (GENERIC) CLINICAL HISTORY: Pain, decreased ROM. ? GH OA, rotator cuff arhropathy, etc. TECHNIQUE: 4 views LEFT shoulder COMPARISON: None FINDINGS: No fracture. No dislocation. Large gleno humeral osteophytes. Severe glenohumeral joint space narrowing. There is remodeli ng of the glenoid with biconcave appearance. Humeral head is slightly pos teriorly subluxed. There is mild flattening of the humeral head articular surface. Normal acromioclavicular joint. IMPRESSION Severe glenohumeral osteoarthropathy. Thank you for letting us participate in the care of this patient. If you are a health care provider and have any questi ons regarding this report, please contact the number below. For patients w ho have questions please contact the health healthcare project manager that requested your imaging first. Electronically signed by: Shane Rollins MD , [facility] ([phone]), at 07/24/2021 2:23 PM Alton Loera MD IMG DX ORDERABLES XR Pelvis & Lat Hip Right (Generic) (07/24/2021 2:17 PM EDT) Anatomical Region Laterality Modality Pelvis, Hip Right Digital Radiography Specimen (Source) Anatomical Location Collection Method / Collectio n Time Received Time / Laterality Volume Impressions 07/24/2021 2:21 PM EDT Mild osteoarthropathy of the right hip. Thank you for letting us participate in the care of this patient. ??If you are a health care provider and have any questi ons regarding this report, please contact the number below. ??For patients who have questions please contact the health healthcare project manager that requested your imaging first. ? Electronically signed by: Shane Rollins MD , [facility] ([phone]), at 07/24/2021 2:21 PM Narrative 07/24/2021 2:21 PM EDT EXAMINATION: XR PELVIS AND LAT HIP RIGHT (GENERIC) CLINICAL HISTORY: Pain in right buttock, SI joint. ? OA hip joint and/or SI joint. TECHNIQUE: AP view of the pelvis. 2 views of the ri ght hip. COMPARISON: None FINDINGS: There is degenerative change at the lowe r lumbar spine. No visible pelvic fracture. No widening of the pelvic ring . Small osteophytes at the right hip. No fracture or dislocation. Mild central moose int space narrowing. Procedure Note Shane Rollins MD - 07/24/2021Formatting o f this note might be different from the original. EXAMINATION: XR PELVIS AND LAT HIP RIGHT (GENERIC) CLINICAL HISTORY: Pain in right buttock, SI joint. ? OA hip joint and/or SI joint. TECHNIQUE: AP view of the pelvis. 2 views of the ri ght hip. COMPARISON: None FINDINGS: There is degenerative change at the lowe r lumbar spine. No visible pelvic fracture. No widening of the pelvic ring . Small osteophytes at the right hip. No fracture or dislocation. Mild central moose int space narrowing. IMPRESSION Mild osteoarthropathy of the right hip. Thank you for letting us participate in the care of this patient. If you are a health care provider and have any questi ons regarding this report, please contact the number below. For patients w ho have questions please contact the health healthcare project manager that requested your imaging first. Alton Loera MD IMG DX ORDERABLES from Last 3 Months Insurance Payer Benefit Plan / Subscriber ID Effective Dates Phone Addre ss Type Group MEDICARE MEDICARE PART [id number] 2006-Presen [phone] [facility] [place] [id number] [employer] [id number] 2015-Presen [address] [address] [place] [address] Advance Directives Latest Code Status on File Code Status Date Activated Date Inactivated Comments Full Code 09/13/2017 12:31 AM 09/16/2017 12:11 PM Does patient have capacity to make decision: Yes Full Code 09/13/2017 12:29 AM 09/13/2017 12:31 AM Does patient have capacity to make decision: Yes Full Code 11/03/2015 9:28 AM 11/04/2015 12:27 PM Does patient have capacity to make decision: Yes Care Teams Outpatient Interviewing Clerk Relationship Specialty Start Date End Date Kristyn Whitehead MD PCP - General 01/16/10 [address] [place] [address]
--- OUTSIDE RECORDS SUMMARY | 2021-08-22 09:42 | XMS_ITS | Encounter Summary ---
:1945 Author Organization [facility] [place] [address] Care Team Providers Name Role Phone Kristyn Whitehead MD Primary Care Provider Encounter Details Date Type Department Care Team Description 09/18/2017 Orders Only Rheumatology at [facility] Alton Loera Psoriasiform [facility] MD [place] [address] RHEUMATOLOGY DEPT. [phone] [place], [place] [address] (Wo rk) Social History Tobacco Use Types Packs/Day Years Used Date Former Smoker Smokeless Tobacco: Never Used Sex Assigned at Date Recorded Not on file documented as of this encounter Plan of Treatment Upcoming Encounters Date Type Specialty Care Team Description 10/31/2021 Office Visit Rheumatology Bert Loera MD [facility] DR RHEUMATOLOGY DEP T. [place], [place] [address] (Wo rk) documented as of this encounter Visit Diagnoses Diagnosis Psoriasiform dermatitis Other psoriasis and similar disorders documented in this encounter Care Teams Floor Covering Layer Relationship Specialty Start Date End Date Kristyn Whitehead MD PCP - General 01/16/10 [address] [place], [place] [address] documented as of this encounter
--- OUTSIDE RECORDS SUMMARY | 2021-08-22 09:42 | XMS_ITS | Encounter Summary ---
:1945 Author Organization [facility] [place] [address] Care Team Providers Name Role Phone Kristyn Whitehead MD Primary Care Provider Reason for Visit Reason Onset Date Comments Medication Refill 04/09/2019 Encounter Details Date Type Department Care Team Description 04/09/2019 Refill Rheumatology at [facility] Alton Loera, High risk medication [facility] use [facility] [place] [phone] RHEUMATOLOGY DEPT. [phone] [place], [place] [address] (Wo rk) Social History Tobacco Use Types Packs/Day Years Used Date Former Smoker Smokeless Tobacco: Never Used Sex Assigned at Date Recorded Not on file documented as of this encounter Plan of Treatment Upcoming Encounters Date Type Specialty Care Team Description 10/31/2021 Office Visit Rheumatology Bert Loera MD [facility] ER RHEUMATOLOGY DEP [place]. [place], [place] [address] (Wo rk) documented as of this encounter Visit Diagnoses Diagnosis High risk medication use Encounter for long-term (current) use of other medications documented in this encounter Care Teams Bone Density Technician Relationship Specialty Start Date End Date Kristyn Whitehead MD PCP - General 01/16/10 [address] [place] [address] documented as of this encounter
--- OUTSIDE RECORDS SUMMARY | 2021-08-22 09:42 | XMS_ITS | Encounter Summary ---
:1945 Author Organization [facility] [place] [address] Care Team Providers Name Role Phone Kristyn Whitehead MD Primary Care Provider Encounter Details Date Type Department Care Team Description 11/08/2020 Office Visit Rheumatology at [facility] Alton Loera High risk medication use; [facility] MD [place] Psoriasiform dermatitis; [facility] Low back pain, non-specific; [place], [place] Ischial bursitis, unspecified laterality ; [id number] RHEUMATOLOGY DEPT. Eczema, unspecified type; [phone] [place], [place] [address] Primary osteoarthritis involving multipl e joints [phone] (Wo rk) Social History Tobacco Use Types Packs/Day Years Used Date Former Smoker Smokeless Tobacco: Never Used Sex Assigned at Date Recorded Not on file documented as of this encounter Last Filed Vital Signs Vital Sign Reading Time Taken Comments Blood Pressure 100/66 11/08/2020 2:08 PM EDT Pulse 81 11/08/2020 2:08 PM EDT Temperature 36 ??C (96.8 ??F) 11/08/2020 2:08 PM EDT Respiratory Rate - - Oxygen Saturation 97% 11/08/2020 2:08 PM EDT Inhaled Oxygen Concentration - - Weight 81.6 kg (180 lb) 11/08/2020 2:08 PM EDT Height 165.1 cm (5' 5) 11/08/2020 2:08 PM EDT Body Mass Index 29.95 11/08/2020 2:08 PM EDT documented in this encounter Patient Instructions Patient InstructionsAlton Loera MD - 11/08/2020 2:30 PM EDT Images from the original note were not included. Get labs and x-rays today at 3L. [facility] for results if you don't hear from us by next week. Further recommendations based on test results. We may put you on a more regular dose of flurbiprofen if labs look okay. Continue tizanidine. Do exercises below. When you get to [place] it might help to see a PT to help you with proper approach tpo the back and buttock problem. Follow up when back from [place]. Keep working on the right pillow. Look up ischial bursitis pillow on [employer] for some ideas. Get booster vaccine. Call if problems or concerns. Patient Education Back Stretches: Exercises Introduction Here are some examples of exercises for stretching your back. Start each exercise slowly. Ease off the exercise if you start to have pain. Your doctor or physical therapist will tell you when you can start these exercises and which ones will work best for you. How to do the exercises Overhead stretch 1. Stand comfortably with your feet shoulder-width apart. 2. Looking straight ahead, raise both arms over your head and reach toward the ceiling. Do not allowyour head to tilt back. 3. Hold for 15 to 30 seconds, then lower your arms to your sides. 4. Repeat 2 to 4 times. Side stretch 1. Stand comfortably with your feet shoulder-width apart. 2. Raise one arm over your head, and then lean to the other side. 3. Slide your hand down your leg as you let the weight of your arm gently stretch your side muscles.Hold for 15 to 30 seconds. 4. Repeat 2 to 4 times on each side. Press-up 1. Lie on your stomach, supporting your body with your forearms. 2. Press your elbows down into the floor to raise your upper back. As you do this, relax your stomach muscles and allow your back to arch without using your back muscles. As your press up, do not let your hips or pelvis come off the floor. 3. Hold for 15 to 30 seconds, then relax. 4. Repeat 2 to 4 times. Relax and rest 1. Lie on your back with a rolled towel under your neck and a pillow under your knees. Extend your arms comfortably to your sides. 2. Relax and breathe normally. 3. Remain in this position for about 10 minutes. 4. If you can, do this 2 or 3 times each day. Follow-up care is a sloan part of your treatment and safety. Be sure to make and go to all appointments, and call your doctor if you are having problems. It's also a good idea to know your test results and keep a list of the medicines you take. Where can you learn more? Visit our [employer] information library at [email or web address] You can also view health information on [employer], your personal patient account. Log in or sign up today. Enter Y090 in the search box to learn more about Back Stretches: Exercises. Current as of: January 10, 2020?Content Version: 12.9 ?? [employer]. Care instructions adapted under license by [facility]. If you have questions about a medical condition or this instruction, always ask your healthcare professional. [employer] disclaims any warranty or liability for your use of this information. Patient Education Hip Bursitis: Exercises Introduction Here are some examples of exercises for you to try. The exercises may be suggested for a condition or for rehabilitation. Start each exercise slowly. Ease off the exercises if you start to have pain. You will be told when to start these exercises and which ones will work best for you. How to do the exercises Hip rotator stretch 1. Lie on your back with both knees bent and your feet flat on the floor. 2. Put the ankle of your affected leg on your opposite thigh near your knee. 3. Use your hand to gently push your knee away from your body until you feel a gentle stretch aroundyour hip. 4. Hold the stretch for 15 to 30 seconds. 5. Repeat 2 to 4 times. 6. Repeat steps 1 through 5, but this time use your hand to gently pull your knee toward your opposite shoulder. Iliotibial band stretch 1. Lean sideways against a wall. If you are not steady on your feet, hold on to a chair or counter. 2. Stand on the leg with the affected hip, with that leg close to the wall. Then cross your other leg in front of it. 3. Let your affected hip drop out to the side of your body and against wall. Then lean away from your affected hip until you feel a stretch. 4. Hold the stretch for 15 to 30 seconds. 5. Repeat 2 to 4 times. Straight-leg raises to the outside 1. Lie on your side, with your affected hip on top. 2. Tighten the front thigh muscles of your top leg to keep your knee straight. 3. Keep your hip and your leg straight in line with the rest of your body, and keep your knee pointing forward. Do not drop your hip back. 4. Lift your top leg straight up toward the ceiling, about 12 inches off the floor. Hold for about 6seconds, then slowly lower your leg. 5. Repeat 8 to 12 times. Clamshell 1. Lie on your side, with your affected hip on top and your head propped on a pillow. Keep your feetand knees together and your knees bent. 2. Raise your top knee, but keep your feet together. Do not let your hips roll back. Your legs should open up like a clamshell. 3. Hold for 6 seconds. 4. Slowly lower your knee back down. Rest for 10 seconds. 5. Repeat 8 to 12 times. Follow-up care is a sloan part of your treatment and safety. Be sure to make and go to all appointments, and call your doctor if you are having problems. It's also a good idea to know your test results and keep a list of the medicines you take. Where can you learn more? Visit our health information library at [email or web address] You can also view health information on [employer], your personal patient account. Log in or sign up today. Enter H674 in the search box to learn more about Hip Bursitis: Exercises. Current as of: January 10, 2020?Content Version: 12.9 ?? [id number] [employer]. Care instructions adapted under license by [facility]. If you have questions about a medical condition or this instruction, always ask your healthcare professional. [employer] disclaims any warranty or liability for your use of this information. documented in this encounter Progress Notes Alton Loera MD - 11/08/2020 2:30 PM EDT Rheumatology Clinic: Dr. 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 She also has osteoarthritis. To make a long story short, the palmar rash responded well to prednisone, and then she failed Plaquenil, but then responded well to methotrexate as a steroid-sparing agent. She continues on methotrexate at 20 mg a week without any problems. She is due for methotrexate labs. Since being on methotrexate, she has not had to resort to prednisone. She does have some problems elsewhere and she pointed out some calluses she has onher feet, most notably under the right first MTP. She also has a rash on her elbows and tacrolimus cream helps there. In terms of joint pain, she continues to have a lot of back and hip area pain. We went into some detail with her today. She has fairly typical mechanical midline low lumbar spine pain. But what she complained about most today is pain on the bottom of her buttocks when she has been sitting for a time, particularly in the car. This is on the sits bones. She tried using pillows to alleviate that pain.But when she positions herself in such a way to alleviate that, it tends to aggravate the low back pain, and vice versa. She is using flurbiprofen (ANSAID, 100 mg), for the back pain primarily. She does that about 4 days of the week. She is also now on the muscle relaxant tizanidine and she takes 1/2 pill as needed. She has been fully vaccinated against COVID-19. She got two shots of Pfizer, the second one in 05/2020. She did have some lethargy and headache for a day or two with the shots. We discussed the booster dose, which she would be eligible for because she is on methotrexate and she is 75 years old. In addition, she'll be heading down to [place], [place] for the winter. Of course there is a very high prevalence of unvaccinated people and raging delta variant COVID-19 infections in the state of [place]. I recommended that she get the booster vaccine at one of the local chain pharmacies as soon as she can. I reminded her that she should stop the methotrexate for a week after she has the vaccination. It would be nice if she can get that at least a couple weeks before heading down to [place] so she has afull response before arrival. I did remind her to continue to wear a mask and practice social distancing when down there. Patient Active Problem List Diagnosis Code ??? CIS - Anxiety ??? CIS - Chest pain ??? CIS - Depression ??? CIS - Hyperlipidemia ??? CIS - Hypothyroid ??? CAD (coronary artery disease) I25.10 ??? 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 Unstable angina I20.0 ??? 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 Eczema L30.9 ??? High risk medication use Z79.899 Medications 12/15/18 1131 Medication Sig Taking? calcium carbonate (CALCIUM 300 ORAL) Take by mouth. Yes EPINEPHrine (EpiPen) 0.3 mg/0.3 mL Auto-Injector Inject into the muscle. Yes vit A,C,F-qfsz-kblwog (Ocuvite PreserVision) 7,160 unit- 113 mg-100 unit Tablet Take by mouth. Yes metHOTREXate 2.5 mg Tablet Take 8 tablets by mouth once every week Yes folic acid (Folvite) 1 mg Tablet Take 1 tablet by mouth once daily Yes triamcinolone (KENALOG) 0.1 % Cream Apply topically 2 times daily. Yes folic acid (Folvite) 1 mg Tablet Take 1 tablet by mouth daily. Yes phenazopyridine (PYRIDIUM) 200 mg Tablet as needed. Yes aspirin 81 mg Tablet, Delayed Release [...] pain Yes lisinopril (PRINIVIL;ZESTRIL) 5 mg tablet Take by mouth 2 times daily. Patient taking differently: Take by mouth 2 times daily. Yes predniSONE (Deltasone) 1 mg Tablet Take 4 tablets by mouth daily. Patient not taking: Reported on 11/08/2020 predniSONE (DELTASONE) 5 mg Tablet Take 1 tablet by mouth daily. Patient not taking: Reported on 12/15/2018 chlorthalidone (HYGROTEN) 25 mg Tablet daily. hydroxychloroquine (PLAQUENIL) 200 mg Tablet Take 1 tablet by mouth 2 times daily. Patient not taking: Reported on 12/15/2018 amLODIPine (NORVASC) 2.5 mg Tablet Take 1 tablet by mouth daily. Patient not taking: Reported on 12/15/2018 Calcium Carbonate-Vitamin D3 (CALCIUM 600 WITH VITAMIN D3) 600 mg(1,500mg) -200 unit Tab Physical Exam: She looks well and healthy. Blood pressure 100/66, pulse 81, temperature 36 ??C (96.8 ??F), temperature source Temporal, height 165.1 cm (5' 5), weight 81.6 kg (180 lb), SpO2 97 %. Skin: Her palms look amazingly good with very little rash if any. She has some mild psoriasiform lesions on her extensor elbows. On her feet, she has mainly just callus formation around the distal foot, particularly the right MTP area. HEENT: Unremarkable. Mask in place. Lungs: Clear. Heart: 2/6 to 3/6 systolic ejection murmur heard across the precordium and radiating to the carotidsconsistent with aortic sclerosis/stenosis. Regular rhythm and rate. Abdomen: Benign. No masses, tenderness, or organomegaly. Extremities: No edema. Good distal pulses. Musculoskeletal: She has typical degenerative changes in the hands without synovitis. This affects the DIPs, PIPs, and the thumb joints. Wrists and elbows move well. She has mildly diminished range of motion in her shoulders, but no pain there. Examining her lower back, she is mildly tender along the midline lumbar spine at the level of the pelvic brim and above. She has mild trochanteric bursa tenderness. The area of her pain, although it wasn't particularly tender there today, is at the ischial tuberosity bilaterally, consistent with ischial bursitis and/or insertional hamstring tendinitis. The hi ps themselves move very well. Her knees have significant degenerative disease bilaterally. Most of her crepitance on range of motion seems to be patellofemoral in origin. There is no warmth or effusionin either knee. Ankles are fine. Distal feet show DJD, including bunions and secondary callus formati on. Neuro: Grossly intact. Assessment: We had a long discussion about her situation. The methotrexate is working very well for her palmar rash. She'll continue that. We'll check labs today. If her kidney and liver function looksokay, we can consider putting her on a more regular dose of flurbiprofen, which would probably control her daily pain back better. She can continue the tizanidine. We also gave her exercises to do for her low back and for the ischial bursitis. It might help for her to see a physical therapist when she[place] to [place] to try and find a happy medium between the approach to her back pain and her buttockpain, which at times conflict. We recommended that she look up an ischial bursitis pillow on [employer] for some ideas about the type of pillow that might be most helpful for her, particularly when she is in the car. Finally, as noted above, I encouraged her to get the Pfizer booster vaccine and reminded her to stop the methotrexate for a week after. She understood the plan. I'll see her in follow-up when she gets back from [place], although she knows she can contact us in the interim if she has any problems. Patient Instructions Get labs and x-rays today at 3[facility]. [facility] for results if you don't hear from us by next week. Further recommendations based on test results. We may put you on a more regular dose of flurbiprofen if labs look okay. Continue tizanidine. Do exercises below. When you get to [place] it might help to see a PT to help you with proper approach tpo the back and buttock problem. Follow up when back from [place]. Keep working on the right pillow. Look up ischial bursitis pillow on [employer] for some ideas. Get booster vaccine. Call if problems or concerns. Total time spent on this visit: 45 minutes. Visit code: 53962 Visit Diagnoses: 1. High risk medication use 2. Psoriasiform dermatitis 3. Low back pain, non-specific 4. Ischial bursitis, unspecified laterality 5. Eczema, unspecified type 6. Primary osteoarthritis involving multiple joints Results for ORESTESJuly ( ) Ref. Range 11/08/2020 16:20 WBC Latest Ref Range: 4.0 - 9.5 x10(3)/mcL 6.7 RBC Latest Ref Range: 4.00 - 5.21 x10(6)/mcL 4.21 Hemoglobin Latest Ref Range: 11.7 - 15.5 gm/dL 13.9 Hematocrit Latest Ref Range: 35.7 - 45.8 % 42.0 MCV Latest Ref Range: 82.6 - 94.4 fL 99.8 (H) MCH Latest Ref Range: 27.1 - 32.0 pg 33.0 (H) MCHC Latest Ref Range: 31.7 - 35.0 gm/dL 33.1 RDWSD Latest Ref Range: 37.0 - 46.0 fL 47.6 (H) RDWCV Latest Ref Range: 11.5 - 14.1 % 13.1 Platelets Latest Ref Range: 145 - 357 x10(3)/mcL 315 MPV Latest Ref Range: 7.6 - 12.9 fL 8.9 nRBC % Auto Latest Units: % 0.0 nRBC Abs Auto Latest Ref Range: 0.000 - 0.000 x10(3)/mcL 0.000 Neutr Abs (ANC) Latest Ref Range: 1.70 - 6.10 x10(3)/mcL 3.93 Neutrophils % Latest Units: % 58.9 Immature Gran % Latest Units: % 0.20 Lymphocytes % Latest Units: % 28.2 Monocytes % Latest Units: % 7.7 Eosinophils % Latest Units: % 4.4 Basophils % Latest Units: % 0.6 Anuja Gran Abs Latest Ref Range: 0.00 - 0.04 x10(3)/mcL 0.01 Lymphocytes Abs Latest Ref Range: 0.9 - 3.2 x10(3)/mcL 1.9 Monocyte Abs Latest Ref Range: 0.3 - 0.9 x10(3)/mcL 0.5 Eosinophils Abs Latest Ref Range: 0.0 - 0.4 x10(3)/mcL 0.3 Basophils Abs Latest Ref Range: 0.0 - 0.1 x10(3)/mcL 0.0 Sed Rate Latest Ref Range: 3 - 46 mm/hr 31 Sodium Latest Ref Range: 135 - 145 mmol/L 137 Potassium Latest Ref Range: 3.5 - 5.0 mmol/L 4.4 Chloride Latest Ref Range: 98 - 107 mmol/L 103 CO2 Latest Ref Range: 22 - 31 mmol/L 22 Anion Gap Latest Ref Range: 5 - 15 mmol/L 12 BUN Latest Ref Range: 8 - 18 mg/dL 23 (H) Creatinine Latest Ref Range: 0.70 - 1.20 mg/dL 1.12 Estimated GFR Latest Ref Range: >=60 mL/min/1.73 m?? 47 (L) Calcium Latest Ref Range: 8.5 - 10.5 mg/dL 9.2 Glucose Lvl Latest Ref Range: 65 - 199 mg/dL 96 Total Protein Latest Ref Range: 6.1 - 8.0 gm/dL 7.3 Albumin Latest Ref Range: 3.2 - 5.2 gm/dL 4.4 Total Bilirubin Latest Ref Range: 0.2 - 1.3 mg/dL 0.6 Alk Phos Latest Ref Range: 35 - 105 unit/L 109 (H) AST Latest Ref Range: 0 - 30 unit/L 27 ALT Latest Ref Range: 0 - 30 unit/L 33 (H) CRP Latest Ref Range: <=4.9 mg/L <3.0 EXAMINATION: XR LUMBAR SPINE 2 OR 3 VIEWS (GENERIC) CLINICAL HISTORY: Midline limbar spine pain, and tenderness. DDD, etc.? TECHNIQUE: 2 views of the lumbar spine COMPARISON: September 05, 2017 ?? FINDINGS: 5 lumbar-type nonrib-bearing vertebral bodies. Lumbar lordosis maintained. Mild narrowing at the L2-3 neural foramina and intervertebral disc space. Mild narrowing at the L4-5 neural foramina. Progression of degenerative changes characterized by severe narrowing at the L5-S1 intravertebral disc space with osteophytes and subchondral sclerosis. Accompanying narrowing of L5-S1 neural foramina. No acute bony fracture. ?? IMPRESSION Degenerative changes most notable at the L5-S1 intervertebral disc space are present at L4-5 and L2-3. Electronically signed by: Melissa Erickson MD, [facility] ([phone]), at 11/08/2020 4:30 PM documented in this encounter Plan of Treatment Upcoming Encounters Date Type Specialty Care Team Description 10/31/2021 Office Visit Rheumatology Bert Loera MD [facility] [address] RHEUMATOLOGY [place], [place] [address] (Wo rk) Scheduled Orders Name Type Priority Associated Diagnoses Order S chedule Comprehensive metabolic Lab Routine High risk medicat ion Expected: 11/08/2020, panel (non-fasting) use Expires: 11/09/2021 Psoriasiform dermatitis CBC (with Diff) Lab Routine High risk medication Expe cted: 11/08/2020 use (Approximate), Psoriasiform dermatitis Expi res: 11/09/2021 documented as of this encounter Procedures Procedure Name Priority Date/Time Associated Diagnosis Comme nts HC C-REACTIVE PROTEIN Routine 11/08/2020 4:20 PM Psoriasiform Results for this EDT dermatitis procedure are i n the results section. HEMOGRAM Routine 11/08/2020 4:20 PM High risk medication R esults for this EDT use procedure are i n the results section. DIFFERENTIAL, Routine 11/08/2020 4:20 PM High risk medication Results for this AUTOMATED EDT use procedure are i n the results section. HC ESR-SEDIMENTATION Routine 11/08/2020 4:20 PM Psoriasiform R esults for this RATE, BLOOD EDT dermatitis procedure are i n the results section. HC CBC,PLT & AUTO Routine 11/08/2020 4:20 PM High risk medicat ion DIFF EDT use HC VENIPUNCTURE Routine 11/08/2020 4:20 PM High risk medicatio n Results for this EDT use procedure are i n the results section. documented in this encounter Results Differential, Automated (11/08/2020 4:20 PM EDT) P athologist Signature Neutrophils % 58.9 % [facility] Neutr Abs (ANC) 3.93 1.70 - [facility] 6.10 [facility] x10(3)/[facility]ORAT[facility] Lymphocytes % 28.2 % [facility] Lymphocytes Abs 1.9 0.9 - 3.2 [facility] x10(3)/[facility] LABORATORY Monocytes % 7.7 % [facility] Monocyte Abs 0.5 0.3 - 0.9 [facility] x10(3)/[facility] LABORATORY Eosinophils % 4.4 % [facility] Eosinophils Abs 0.3 0.0 - 0.4 [facility] x10(3)/[facility] Basophils % 0.6 % [facility] Basophils Abs 0.0 0.0 - 0.1 [facility] x10(3)/[facility] Immature Gran % 0.20 % [facility] Comment: Immature granulocytes(IG's)percentage an d absolute count will include metamyelocytes, myelocytes, and promyelo cytes. Blood smears from CBCs yielding IG's will be scanned manually for concor dance. If this scan disagrees with the automated IG or if promyelocytes are not ed, a manual differential will be performed. Anuja Gran Abs 0.01 0.00 - 0.04 x10(3)/[facility] MAR Y [facility] Specimen Anatomical Collection Method Collection Time Receive d Time (Source) Location / / Volume Laterality Blood 11/08/2020 4:20 PM 4:26 EDT PM EDT Resulting Agency Comment Spec In Lab Alton Loera MD HEMATOLOGY ORDERABLES Performing Organization Address City/State/[place] [address] (ABNORMAL) Hemogram (11/08/2020 4:20 PM EDT) Analysis Performed At Patho logist Time Signature WBC 6.7 4.0 - 9.5 [facility] x10(3)/[facility] LABORATORY RBC 4.21 4.00 - [facility] [place] 5.21 [facility] x10(6)/[facility] LABORATORY Hemoglobin 13.9 11.7 [facility]/dL [facility] Hematocrit 42.0 35.7 - [facility] 45.8 % [facility] MCV 99.8 (H) 82.6 - [facility] 94.4 [facility] LAB[facility] MCH 33.0 (H) 27.1 - [place] [place] 32.0 pg [facility] MCHC 33.1 31.7 - [facility] 35.[facility] gm/dL [facility] Platelets 315 145 - 357 [facility] x10(3)/[facility] LABORATORY RDWSD 47.6 (H) 37.0 - [facility] 46.0 [facility] LABORATORY RDWCV 13.1 11.5 - [place] 14.1 % [facility] MPV 8.9 7.6 - 12.9 [facility] nRBC % Auto 0.0 % [facility] nRBC Abs Auto 0.000 0.000 - [facility] [place] 0.000 [facility] x10(3)/[facility] LABORATORY Specimen Anatomical Collection Method Collection Time Receive d Time (Source) Location / / Volume Laterality Blood 11/08/2020 4:20 PM 4:26 EDT PM EDT Resulting Agency Comment Spec In Lab Alton Loera MD HEMATOLOGY ORDERABLES Performing Organization Address City/State/ZIP [place] [address] (ABNORMAL) Comprehensive metabolic panel (non-fasting) (11/08/2020 4:20 PM EDT) P athologist Signature Glucose Lvl 96 65 - 199 [facility] mg/dL [facility] Comment: Diabetes: >=200 mg/dL plus symp toms BUN 23 (H) 8 - 18 mg/dL [facility] Creatinine 1.12 0.70 - 1.20 mg/dL [facility] Sodium 137 135 - 145 mmol/L [facility] Potassium 4.4 3.5 - 5.0 mmol/L [facility] Comment: Please note: ??Patients with WBC >100,00 0 may have falsely elevated Potassium levels. ??For accurate Potassium quantif ication in these patients send serum separator tube (gold top) for subsequent determinations. ??Contact the Clinical Chemistry Laboratory if there are any qu estions. Chloride 103 98 - 107 mmol/L [facility] CO2 22 22 - 31 mmol/L [facility] Anion Gap 12 5 - 15 mmol/L [facility] Calcium 9.2 8.5 - 10.5 mg/dL [facility] Total Protein 7.3 6.1 - 8.0 gm/dL [facility] Albumin 4.4 3.2 - 5.2 gm/dL [facility] AST 27 0 - 30 unit/L [facility] ALT 33 (H) 0 - 30 unit/L [facility] Alk Phos 109 (H) 35 - 105 unit/L [facility] Total Bilirubin 0.6 0.2 - 1.3 mg/dL [facility] Estimated GFR 47 (L) >=60 mL/min/1.73 m?? [facility] Comment: This patient? s estimated glomerular filtration rate (eGFR) is between 47 mL/min/1.73 m2 (patients with less muscl e mass) and 55 mL/min/1.73 m2 (patients with more muscle mass) as determined by the CKD-EPI equation. Assessment of eGFR is not appropriate when creatinine concentrations are rapidly changing. For clinical decisions where creatinine clearance will affect therapy, a 24-hour urine creatinine clearance may b e advised. Assignment of CKD stage 1 - 5 for patien ts with an eGFR near the transition point between stages may be based on cli nical assessment of muscle mass and symptoms in addition to eGFR. Specimen Anatomical Collection Method Collection Time Receive d Time (Source) Location / / Volume Laterality Blood 11/08/2020 4:20 PM 4:25 EDT PM EDT Resulting Agency Comment Spec In Lab Alton Loera MD CHEMISTRY ORDERABLES Performing Organization Address City/[facility]/ZIP [facility] Phon e Number [address] CRP, acute inflammation (11/08/2020 4:20 PM EDT) P athologist Signature CRP <3.0 <=4.9 mg/L [facility] Specimen Anatomical Collection Method Collection Time Receive d Time (Source) Location / / Volume Laterality Blood 11/08/2020 4:20 PM 4:25 EDT PM EDT Resulting Agency Comment Spec In Lab Alton Loera MD CHEMISTRY ORDERABLES Performing Organization Address [facility] [place] [address] Sedimentation rate (11/08/2020 4:20 PM EDT) P athologist Signature Sed Rate 31 3 - 46 [facility] mm/hr [facility] Comment: Effective February 03, 2019 new capillar y photometric technology has resulted in a change in reference ranges. It is r ecommended that each ESR result be reviewed with its own age appropriate re ference range. Specimen Anatomical Collection Method Collection Time Receive d Time (Source) Location / / Volume Laterality Blood 11/08/2020 4:20 PM 4:26 EDT PM EDT Resulting Agency Comment Spec In Lab Alton Loera MD HEMATOLOGY ORDERABLES Performing Organization Address City/[facility]/ZIP [facility] Number [address] XR Lumbar Spine 2 Or 3 Views [...] who have questions please contact the health care asst that requested your imaging first. ? Electronically signed by: Melissa Erickson MD , [facility] ([phone]), at 11/08/2020 4:30 PM Narrative 11/08/2020 4:30 [...] ho have questions please contact the health care asst that requested your imaging first. 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
--- OUTSIDE RECORDS SUMMARY | 2021-08-22 09:42 | XMS_ITS | Encounter Summary ---
:1945 Author Organization [facility] [place] [address] Care Team Providers Name Role Phone Kristyn Whitehead MD Primary Care Provider Encounter Details Date Type Department Care Team Description 04/07/2018 Orders Only Rheumatology at [facility] [place] Alton Loera Psoriatic arthritis; [facility] [place] [address] RHEUMATOLOGY DEP [place], [place] [address] (Wo rk) Social History Tobacco Use Types Packs/Day Years Used Date Former Smoker Smokeless Tobacco: Never Used Sex Assigned at Date Recorded Not on file documented as of this encounter Plan of Treatment Upcoming Encounters Date Type Specialty Care Team Description 10/31/2021 Office Visit Rheumatology Bert Loera MD [facility] RHEUMATOLOGY DEP [place], [place] [address] (Wo rk) documented as of this encounter Visit Diagnoses Diagnosis Psoriatic arthritis Psoriatic arthropathy High risk medication use Encounter for long-term (current) use of other medications documented in this encounter Care Teams Manager Metal Relationship Specialty Start Date End Date Kristyn Whitehead MD PCP - General 01/16/10 [address] [place] [address] documented as of this encounter
--- OUTSIDE RECORDS SUMMARY | 2021-08-22 09:42 | XMS_ITS | Encounter Summary ---
:1945 Author Organization [facility] [place] [address] Care Team Providers Name Role Phone Kristyn Whitehead MD Primary Care Provider Reason for Referral Physical Therapy (Routine) - Closed Specialty Diagnoses / Procedures Referred By Contact Refer red To Contact Physical Therapy Diagnoses Ischial bursitis, unspecified laterality Low back pain, non-specific Primary osteoarthritis involving multiple joints Alton Loera, Physi logan Therapy, [address] [place] [phone] Fax: Referral ID Status Reason Start Date Expiration Date Visits V isits Requested Authorized [id number] Closed Evaluate and 11/14/2020 05/13/2021 12 12 Treat Encounter Details Date Type Department Care Team Description 11/14/2020 Orders [place] [facility] [place]era Ischial bursitis, unspecifie d laterality; [facility] MD [place] Low back pain, non-specific; [facility] Primary osteoarthritis [place] [address] RHEUMATOLOGY DEPT. [phone] [place], [place] [address] (Wo rk) Social History Tobacco Use Types Packs/Day Years Used Date Former Smoker Smokeless Tobacco: Never Used Sex Assigned at Date Recorded Not on file documented as of this encounter Plan of Treatment Upcoming Encounters Date Type Specialty Care Team Description 10/31/2021 Office Visit Rheumatology Bert Loera MD [facility] [address] RHEUMATOLOGY DEP T. [place], [place] [address] (Wo rk) Scheduled Referrals Name Type Priority Associated Diagnoses Order S chedule Referral to Outpatient Referral Routine Ischial bursitis, Ord ered: Physical Therapy unspecified lat erality 11/14/2020 Low back pain, non-specific Primary osteoarthritis involving multiple joints documented as of this encounter Visit Diagnoses Diagnosis Ischial bursitis, unspecified laterality Low back pain, non-specific Primary osteoarthritis involving multipl e joints documented in this encounter Care Teams Surgical Sales Representative Relationship Specialty Start Date End Date Kristyn Whitehead MD PCP - General 01/16/10 [address] [place] [address] documented as of this encounter
--- OUTSIDE RECORDS SUMMARY | 2021-08-22 09:42 | XMS_ITS | Encounter Summary ---
:1945 Author Organization [facility] [place] [address] Care Team Providers Name Role Phone Kristyn Whitehead MD Primary Care Provider Reason for Visit Reason Comments Medication Refill Encounter Details Date Type Department Care Team Description 06/13/2020 Refill Rheumatology at [facility] [place] Alton Loera, High risk medication use (Pr imary Dx); [facility] Psoriatic arthritis [facility] [place] [address] RHEUMATOLOGY DEPT. [phone] [place], [place] [address] (Wo rk) Social History Tobacco Use Types Packs/Day Years Used Date Former Smoker Smokeless Tobacco: Never Used Sex Assigned at Date Recorded Not on file documented as of this encounter Miscellaneous Notes Telephone Encounter - Freddy Esteban RN - 06/13/2020 9:15 AM EDT Rheumatology appointment in the last 6 months? Yes RN confirm MTX dose? 20 mg weekly Most recent labs: External labs? No [ WBC Date Value Ref Range Status 12/15/2018 5.7 4.0 - 9.5 x10(3)/mcL Final Hemoglobin Date Value Ref Range Status 12/15/2018 14.7 11.7 - 15.5 gm/dL Final MCV Date Value Ref Range Status 12/15/2018 104.6 (H) 82.6 - 94.4 fL Final Platelets Date Value Ref Range Status 12/15/2018 274 145 - 357 x10(3)/mcL Final Creatinine Date Value Ref Range Status 12/15/2018 1.17 0.70 - 1.20 mg/dL Final Albumin Date Value Ref Range Status 12/15/2018 4.7 3.2 - 5.2 gm/dL Final AST Date Value Ref Range Status 12/15/2018 22 0 - 30 unit/L Final ALT Date Value Ref Range Status 12/15/2018 19 0 - 30 unit/L Final ] If last labs >12 weeks, were new labs ordered per protocol by RN? Yes Follow-up appointment scheduled: No Routed to [facility] for follow-up scheduling: Yes Has not had labs in a couple of years at least that is what chart reveals.Ihkleber sent July a message about needing labs, documented in this encounter Plan of Treatment Upcoming Encounters Date Type Specialty Care Team Description 10/31/2021 Office Visit Rheumatology Bert Loera MD [facility] DR RHEUMATOLOGY [place], [place] [address] (Wo rk) documented as of this encounter Visit Diagnoses Diagnosis High risk medication use - Primary Encounter for long-term (current) use of other medications Psoriatic arthritis Psoriatic arthropathy documented in this encounter Care Teams Railroad Signal And Switch Operator Relationship Specialty Start Date End Date Kristyn Whitehead MD PCP - General 01/16/10 [address] [place] [address] documented as of this encounter
--- OUTSIDE RECORDS SUMMARY | 2021-08-22 09:42 | XMS_ITS | Encounter Summary ---
:1945 Author Organization [facility] [place] [address] Care Team Providers Name Role Phone Kristyn Whitehead MD Primary Care Provider Encounter Details Date Type Department Care Team Description 05/14/2018 Orders Only Rheumatology at [facility] Alton Loera Psoriasiform dermatitis; [facility] MD [place] [address] RHEUMATOLOGY DEPT. [phone] [place], [place] [address] (Wo rk) Social History Tobacco Use Types Packs/Day Years Used Date Former Smoker Smokeless Tobacco: Never Used Sex Assigned at Date Recorded Not on file documented as of this encounter Plan of Treatment Upcoming Encounters Date Type Specialty Care Team Description 10/31/2021 Office Visit Rheumatology Bert Loera MD [facility] RHEUMATOLOGY DEP T. 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
--- OUTSIDE RECORDS SUMMARY | 2021-08-22 09:42 | XMS_ITS | Encounter Summary ---
:1945 Author Organization [facility] [place] [address] Care Team Providers Name Role Phone Kristyn Whitehead MD Primary Care Provider Reason for Referral Physical Therapy (Routine) - Authorized Specialty Diagnoses / Procedures Referred By Contact Refer red To Contact Physical Therapy Diagnoses Primary osteoarthritis involving multiple joints Right hip pain Piriformis syndrome of right side Chronic right sacroiliac pain Chronic right-sided low back pain without sciatica Alton Loera, Physical Therapy, [address] [place] [id number] Fax: Referral ID Status Reason Start Expiration Visits Visits Date Date Requested Authorized [id number] Authorized Evaluate and 07/27/2021 01/23/2022 12 12 Treat Consultation (Routine) - Authorized Specialty Diagnoses / Procedures Referred By Contact Refer red To Contact Diagnoses Primary osteoarthritis involving multiple joints Left shoulder pain, unspecified chronicity Alton Loera MD [place], Matthew, MD [place] [address] RHEUM[address] DEPT. [place], [place] [id number] [place] [id number] Referral ID Status Reason Start Date Expiration Visits Visits Date Requested Authorized [id number] Authorized Consult, 07/27/2021 01/23/2022 1 1 Test & Treat Reason for Visit Reason Comments Follow-up Encounter Details Date Type Department Care Team Description 07/24/2021 Office Visit Rheumatology at [facility] Alton Loera Primary osteoarthritis invol ving multiple joints; [facility] MD [place] High risk medication use; Drive [facility] Psoriasiform dermatitis; [place], [place] Right hip pain; [id number] RHEUMAT[address] DEPT[address] Left shoulder pain, unspecified chronici ty; [phone] [place], [place] [address] Piriformis syndrome of right side; [phone] (Wo rk) Chronic right sacroiliac pain; Chronic r ight-sided low back pain without sciatica Social History Tobacco Use Types Packs/Day Years [...] Mass Index 30.05 07/24/2021 10:55 AM EDT documented in this encounter Progress Notes Alton Loera MD - 07/24/2021 11:00 AM EDTSummary: -- Rheumatology Clinic: Dr. 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 This was very steroid-responsive. 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 She could not get off prednisone without the rash returning. Topical agents were not effective. We then tried Plaquenil as a steroid-sparing agent and that failed. We then put her on methotrexate and that turned out to be a great drug for her. She has been at 20 mg a week for several years now. That continues to be e ffective and she has not required systemic steroids in some time. She does get occasional small outbreaks on her fingers, particularly the fourth PIP areas. She'll sometimes uses Protopic on those areas and they get better, but they don't completely resolve, at least not in response to the Protopic. They will sometimes get better on their own over time, and such is the case right now. She just got back from [place]. Things are going pretty well in terms of the rash. She also has a rash on her elbowsthat the Protopic is very useful helpful for her. She believes the elbow rash is a completely separate entity. That is also quiet at the moment. She is tolerating the methotrexate well. She had labs back in April that looked fine. We went into some various areas of musculoskeletal pain. Her biggest problem right at the moment is her left shoulder. She just had a subacromial injection a couple of days ago by her primary that hasn't kicked in yet. Hopefully it will. She has had chronic intermittent problems with that shoulder. She remembers getting a shot years ago that was very helpful. She also took a fall in March down in [place] where she did a face plant, but also broke her fall somewhat by extending her hands out. She wonders if she did something further to the shoulder at that time because its been bothering her moreever since. She has not had x-rays. Her other problem area continues to be the buttock area bilaterally, but definitely worse on the right. Last time we diagnosed her with ischial bursitis. She also has some low back pain, again worse inthe right SI area, as well as this buttock pain. It seems that when she positions herself to preventthe buttock pain, that aggravates the back pain and vice versa. Therefore it's tough for her to finda comfortable position. She had an excellent time down in [place] this year. She did not get COVID-19. She has had three vaccinations and will get her fourth soon. She received [employer]. Patient Active Problem List Diagnosis Code ??? CIS - Anxiety ??? CIS - Chest pain ??? CIS - Depression ??? CIS - Hyperlipidemia ??? CIS - Hypothyroid ??? CAD (coronary artery disease) I25.10 ??? 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 Unstable angina I20.0 ??? Primary osteoarthritis involving multiple joints M15.9 ??? Eczema L30.9 ??? High risk medication use Z79.899 ??? Low back pain, non-specific M54.50 ??? Ischial bursitis M70.70 Medications 07/24/21 1059 Medication Sig Taking? metHOTREXate 2.5 mg Tablet Take 8 tablets by mouth once every week Yes calcium carbonate (CALCIUM 300 ORAL) Take by mouth. Yes EPINEPHrine 0.3 mg/0.3 mL Auto-Injector Inject into the muscle. Yes vit A,C,E-ggpv-bsfjtl (Ocuvite PreserVision) 7,160 unit- 113 mg-100 unit Tablet Take by mouth. Yes folic acid (Folvite) 1 mg Tablet Take 1 tablet by mouth once daily Yes triamcinolone (KENALOG) 0.1 % Cream Apply topically 2 times daily. Yes folic acid (Folvite) 1 mg Tablet Take 1 tablet by mouth daily. Yes phenazopyridine (PYRIDIUM) 200 mg Tablet as needed. Yes chlorthalidone (HYGROTEN) 25 mg Tablet daily. Yes aspirin 81 mg Tablet, Delayed Release (E.C.) Take 81 mg by mouth daily. Yes cholecalciferol, Vitamin D3, 50 mcg (2,000 unit) Tablet Take by mouth daily. Yes cyanocobalamin, [...] tablets by mouth daily. Patient not taking: No sig reported predniSONE (DELTASONE) 5 mg Tablet Take 1 tablet by mouth daily. Patient not taking: No sig reported hydroxychloroquine (PLAQUENIL) 200 mg Tablet Take 1 tablet by mouth 2 times daily. Patient not taking: No sig reported amLODIPine (NORVASC) 2.5 mg Tablet Take 1 tablet by mouth daily. Patient not taking: No sig reported Calcium Carbonate-Vitamin D3 (CALCIUM 600 WITH VITAMIN D3) 600 mg(1,500mg) -200 unit Tab Physical Exam: She looks well. She is in good spirits. Blood pressure 140/83, pulse 52, temperature 36.2 ??C (97.2 ??F), temperature source Temporal, resp.rate 17, height 165.1 cm (5' 5), weight 81.9 kg (180 lb 9.6 oz), SpO2 99 %. Skin: Tanned. There are no signs of the skin rash on her hands, either dorsally on the or on the palmar aspect today. Her elbows are quiet as well. HEENT: Unremarkable. Mask in place. Lungs: Clear. Heart: Regular rhythm and rate without murmur, gallop, or rub. Abdomen: Benign. No masses, tenderness, or organomegaly. Extremities: No edema. Good distal pulses. Musculoskeletal: She has typical degenerative changes in her hands, but no synovitis. Wrists, elbows, and right shoulder are fine. Her left shoulder has dramatically decreased abduction and rotation, consistent with either frozen shoulder for advanced glenohumeral or rotator cuff arthropathy. Her low back pain is actually off to the right from the midline, over the right SI joint area, and she is tender there. She is also tender in the upper right buttock in the area of the piriformis, and in fact the area of tenderness is horizontal in orientation. She also has some mild trochanteric bursa tenderness and no ischial bursa tenderness today. The hips themselves move well. The rest of her lower extremity exam is unchanged. Neuro: Grossly intact. Assessment: We had a long discussion about her situation. Basically she is doing well in terms of the skin condition, but she has some musculoskeletal problems that include significant shoulder pathology, either arthritic or frozen shoulder. We'll get x-rays there. She also has pain in the right SI area and also in the piriformis. She has had physical therapy in the past and that has been helpful, but she is not sure if it is worthwhile at this point. We'll get x-rays of the right hip as well. I wonder about sacroiliitis with her psoriasiform skin condition. I also think she has piriformis syndrome. Today at least, she did not have findings consistent with ischial bursitis which was the diagnosis on her last visit. We'll discuss the results through the message system. I'll plan on seeing her backbefore she returns to [place] for the winter. Total time spent on this visit: 45 minutes. Visit code: 30[address]. Orders Placed This Encounter Procedures ??? XR Shoulder Left (Generic) ? ? XR Pelvis & Lat Hip Right (Generic) Visit Diagnoses: 1. Primary osteoarthritis involving multiple joints 2. High risk medication use 3. Psoriasiform dermatitis 4. Right hip pain 5. Left shoulder pain, unspecified chronicity 6. Piriformis syndrome of right side 7. Chronic right sacroiliac pain 8. Chronic right-sided low back pain without sciatica Orders Placed This Encounter Procedures ??? XR Shoulder Left (Generic) ? ? XR Pelvis & Lat Hip Right (Generic) ??? Referral to Orthopaedics ??? Referral to Physical Therapy EXAMINATION: XR SHOULDER LEFT (GENERIC) CLINICAL HISTORY: Pain, decreased ROM. ? GH OA, rotator cuff arhropathy, etc. TECHNIQUE: 4 views LEFT shoulder COMPARISON: None ?? FINDINGS: No fracture. No dislocation. Large glenohumeral osteophytes. Severe glenohumeral joint space narrowing. There is remodeling of the glenoid with biconcave appearance. Humeral head is slightly posteriorly subluxed. There is mild flattening of the humeral head articular surface. Normal acromioclavicular joint. ?? IMPRESSION Severe glenohumeral osteoarthropathy. Electronically signed by: Shane Rollins MD, [facility] ([phone]), at 07/24/2021 2:23 PM EXAMINATION: XR PELVIS AND LAT HIP RIGHT (GENERIC) CLINICAL HISTORY: Pain in right buttock, SI joint. ? OA hip joint and/or SI joint. TECHNIQUE: AP view of the pelvis. 2 views of the right hip. COMPARISON: None ?? FINDINGS: There is degenerative change at the lower lumbar spine. No visible pelvic fracture. No widening of the pelvic ring. Small osteophytes at the right hip. No fracture or dislocation. Mild central joint space narrowing. ?? IMPRESSION Mild osteoarthropathy of the right hip. Electronically signed by: Shane Rollins MD, [facility]([phone]), at 07/24/2021 2:21 PM documented in this encounter Plan of Treatment Upcoming Encounters Date Type Specialty Care Team Description 10/31/2021 Office Visit Rheumatology Bert Loera MD [facility] RHEUMATOLOGY [place], [place] [address] (Wo rk) Scheduled Referrals Name Type Priority Associated Diagnoses Order S chedule Referral to Outpatient Routine Primary osteoarthritis Order ed: Orthopaedics Referral involving multiple 2 joints Left shoulder pain, unspecified chronicity Referral to Physical Outpatient Routine Primary osteoarthrit is Ordered: Therapy Referral involving multiple 2 joints Right hip pain Piriformis syndrome of right side Chronic right sacroiliac pain Chronic right-sided low back pain without sciatica documented as of this encounter Results XR Pelvis & Lat Hip Right (Generic) [...] who have questions please contact the health senior resident care director that requested your imaging first. ? Electronically signed by: Shane Rollins MD , [facility] ([phone]), at 07/24/2021 2:21 PM Narrative 07/24/2021 2:21 [...] ho have questions please contact the health senior resident care director that requested your imaging first. Electronically signed by: Shane Rollins MD , [facility] ([phone]), at 07/24/2021 2:21 PM Alton Loera MD IMG DX ORDERABLES XR Shoulder Left (Generic) (07/24/2021 2:17 PM [...] who have questions please contact the health senior resident care director that requested your imaging first. ? Electronically signed by: Shane Rollins MD , [facility] ([phone]), at 07/24/2021 2:23 PM Narrative 07/24/2021 2:23 [...] ho have questions please contact the health senior resident care director that requested your imaging first. 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 Right hip pain Pain in joint, pelvic region and thigh Left shoulder pain, unspecified chronici ty Piriformis syndrome of right side Lesion of sciatic nerve Chronic right sacroiliac pain Disorders of sacrum Chronic right-sided low back pain withou t sciatica Primary osteoarthritis involving multipl e joints Psoriasiform dermatitis Other psoriasis and similar disorders Left shoulder pain, unspecified chronici ty Right hip pain Pain in joint, pelvic region and thigh documented in this encounter Care Teams Traction Power Engineer Relationship Specialty Start Date End Date Kristyn Whitehead MD PCP - General 01/16/10 [address] [place] [address] documented as of this encounter
--- OUTSIDE RECORDS SUMMARY | 2021-08-22 09:42 | XMS_ITS | Encounter Summary ---
:1945 Author Organization [facility] [place] [address] Care Team Providers Name Role Phone Kristyn Whitehead MD Primary Care Provider Encounter Details Date Type Department Care Team Description 10/29/2017 Orders Only Rheumatology at [facility] Alton Loera MD [facility] [place] [address] RHEUMATOLOGY DEPT. [phone] [place], [place] [address] (Wo rk) Social History Tobacco Use Types Packs/Day Years Used Date Former Smoker Smokeless Tobacco: Never Used Sex Assigned at Date Recorded Not on file documented as of this encounter Plan of Treatment Upcoming Encounters Date Type Specialty Care Team Description 10/31/2021 Office Visit Rheumatology Bert Loera MD [facility] RHEUMATOLOGY DEP T. [place], [place] [address] (Wo rk) documented as of this encounter Visit Diagnoses Diagnosis Rash Rash and other nonspecific skin eruption documented in this encounter Care Teams Coal Passer Relationship Specialty Start Date End Date Kristyn Whitehead MD PCP - General 01/16/10 [address] [place], [place] [address] documented as of this encounter
--- OUTSIDE RECORDS SUMMARY | 2021-08-22 09:42 | XMS_ITS | Encounter Summary ---
:1945 Author Organization [facility] [place] [address] Care Team Providers Name Role Phone Kristyn Whitehead MD Primary Care Provider Reason for Visit Reason Onset Date Comments Medication Refill 05/21/2019 Encounter Details Date Type Department Care Team Description 05/21/2019 Refill Rheumatology at [facility] Alton Loera MD [facility] [place] [address] RHEUMATOLOGY DEPT. [phone] [place], [place] [address] (Wo rk) Social History Tobacco Use Types Packs/Day Years Used Date Former Smoker Smokeless Tobacco: Never Used Sex Assigned at Date Recorded Not on file documented as of this encounter Plan of Treatment Upcoming Encounters Date Type Specialty Care Team Description 10/31/2021 Office Visit Rheumatology Bert Loera MD [facility] ER RHEUMATOLOGY DEP T. [place], [place] [address] (Wo rk) documented as of this encounter Visit Diagnoses Diagnosis Rash Rash and other nonspecific skin eruption documented in this encounter Care Teams Retoucher Photoengraving Relationship Specialty Start Date End Date Kristyn Whitehead MD PCP - General 01/16/10 [address] [place] [address] documented as of this encounter
--- OUTSIDE RECORDS SUMMARY | 2021-08-22 09:42 | XMS_ITS | Encounter Summary ---
:1945 Author Organization [facility] [place] [address] Care Team Providers Name Role Phone Kristyn Whitehead MD Primary Care Provider Reason for Visit Reason Onset Date Comments Labs Only 07/03/2020 Encounter Details Date Type Department Care Team Description 07/03/2020 Telephone Rheumatology at [facility] [place] [address] Social History Tobacco Use Types Packs/Day Years Used Date Former Smoker Smokeless Tobacco: Never Used Sex Assigned at Date Recorded Not on file documented as of this encounter Miscellaneous Notes Telephone Encounter - Carlos Claudio RN - 07/03/2020 2:02 PM EDT Spoke with patient. States called [facility], but no orders are available. Patient requests lab orders (06/13/20) be sent to [facility]. documented in this encounter Plan of Treatment Upcoming Encounters Date Type Specialty Care Team Description 10/31/2021 Office Visit Rheumatology Bert Loera MD [facility] DR RHEUMATOLOGY [place], [place] [address] (Wo rk) documented as of this encounter Visit Diagnoses Not on filedocumented in this encounter Care Teams Superintendent Greens Relationship Specialty Start Date End Date Kristyn Whitehead MD PCP - General 01/16/10 [address] [place] [address] documented as of this encounter
--- OUTSIDE RECORDS SUMMARY | 2021-08-22 09:42 | XMS_ITS | Encounter Summary ---
:1945 Author Organization [facility] Address [address] [facility] [place] [address] Care Team Providers Name Role Phone Kristyn Whitehead MD Primary Care Provider Encounter Details Date Type Department Care Team Description 07/24/2021 Hospital XRay at [facility] LoeraAugustineopher Primary osteoarthritis invol ving multiple joints; Encounter 1 [facility] MD [place] Psoriasiform dermatitis; [facility] Left shoulder pain, unspecif ied chronicity; [place], [place] Right hip pain [address] RHE[address]Y DEPT. [phone] [place], [place] [address] Social History Tobacco Use Types Packs/Day Years Used Date Former Smoker Smokeless Tobacco: Never Used Sex Assigned at Date Recorded Not on file documented as of this encounter Medications at Time of Discharge Medication Sig Dispensed Refills Start Date End Date metHOTREXate 2.5 mg Take 8 tablets by 104 tablet 1 2 TabletIndications: Psoriatic mouth once every arthritis week calcium carbonate (CALCIUM Take by mouth. 0 300 ORAL) EPINEPHrine 0.3 mg/0.3 mL Inject into the 0 09/23 Auto-Injector muscle. vit A,C,Q-rxeb-wgrtsw Take by mouth. 0 09/23/2012 (Ocuvite PreserVision) 7,160 unit- 113 mg-100 unit Tablet folic acid (Folvite) 1 mg Take 1 tablet by 90 tablet 3 10/2020 TabletIndications: High risk mouth once daily medication use triamcinolone (KENALOG) 0.1 Apply topically 2 45 g 5 0 03/11/2020 % Cream times daily. predniSONE (Deltasone) 1 mg Take 4 tablets by 360 tablet 3 0 05/21/2019 TabletIndications: Rash mouth daily. folic acid (Folvite) 1 mg Take 1 tablet by 90 tablet 3 03/27 TabletIndications: High risk mouth daily. medication use predniSONE (DELTASONE) 5 mg Take 1 tablet by 90 tablet 3 Tablet mouth daily. phenazopyridine (PYRIDIUM) as needed. 0 9 200 mg Tablet chlorthalidone (HYGROTEN) 25 daily. 0 019 mg Tablet hydroxychloroquine Take 1 tablet by 180 tablet 3 11/07/2017 (PLAQUENIL) 200 mg mouth 2 times TabletIndications: daily. Psoriasiform dermatitis amLODIPine (NORVASC) 2.5 mg Take 1 tablet by 90 tablet 3 Tablet mouth daily. aspirin 81 mg Tablet, Take 81 mg by 0 Delayed Release (E.C.) mouth daily. cholecalciferol, Vitamin D3, Take by mouth 0 50 mcg (2,000 unit) Tablet daily. cyanocobalamin, vitamin Inject as 0 B-12, 1,000 mcg/mL Solution directed. Every 3 weeks flurbiprofen (ANSAID) 100 mg as needed. 0 018 Tablet pantoprazole (PROTONIX) 40 daily. 0 8 mg Tablet, Delayed Release (E.C.) tacrolimus (PROTOPIC) 0.1 % Apply to affected 60 g 1 0 07/01/2016 OintmentIndications: areas on hands, Psoriasiform dermatitis elbows, and feet twice daily on weekdays with occlusion at night levothyroxine (SYNTHROID) 75 Take 75 mcg by 0 mcg Tablet mouth daily. PARoxetine (PAXIL) 30 mg Take 30 mg by 0 Tablet mouth every morning. atorvastatin (LIPITOR) 40 mg Take 40 mg by 0 Tablet mouth daily. nitroGLYcerin (NITROSTAT) 0.4 MG = 1 0 09/06/2009 0.4 mg SL tablet Tablet(s), Sublingual, PRN chest pain lisinopril Take by mouth 2 0 09/06/2009 (PRINIVIL;ZESTRIL) 5 mg times daily. tablet Calcium Carbonate-Vitamin D3 0 010 (CALCIUM 600 WITH VITAMIN D3) 600 mg(1,500mg) -200 unit Tab documented as of this encounter Plan of Treatment Upcoming Encounters Date Type Specialty Care Team Description 10/31/2021 Office Visit Rheumatology Bert Loera MD [facility] ER DR RHEUMATOLOGY [place], [place] [address] (Wo rk) documented as of this encounter Procedures Procedure Name Priority Date/Time Associated Diagnosis Comme nts XR SHOULDER LEFT Routine 07/24/2021 2:17 PM Primary osteoarthr itis Results for this EDT involving multiple procedure are in joints the results Psoriasiform edy matitis section. Left shoulder pain, unspecified chronicity XR PELVIS AND LAT Routine 07/24/2021 2:17 PM Primary osteoarth ritis Results for this HIP RIGHT EDT involving multiple procedure are in joints the results Psoriasiform edy matitis section. Right hip pain documented in this encounter Results XR Pelvis & Lat [...] have questions please contact the health care team assistant that requested your imaging first. ? Electronically signed by: Shane Rollins MD , [facility] ([phone]), at 07/24/2021 2:21 PM Narrative 07/24/2021 2:21 [...] have questions please contact the health care team assistant that requested your imaging first. Alton Loera MD IMG DX ORDERABLES XR [...] have questions please contact the health care team assistant that requested your imaging first. ? Electronically signed by: Shane Rollins MD , [facility] ([phone]), at 07/24/2021 2:23 PM Narrative 07/24/2021 2:23 [...] have questions please contact the health care team assistant that requested your imaging first. Alton Loera MD IMG DX ORDERABLES documented in this encounter Visit Diagnoses Diagnosis Primary osteoarthritis involving multipl e joints Psoriasiform dermatitis Other psoriasis and similar disorders Left shoulder pain, unspecified chronici ty Right hip pain Pain in joint, pelvic region and thigh documented in this encounter Care Teams Renewable Energy Broker Relationship Specialty Start Date End Date Kristyn Whitehead MD PCP - General 01/16/10 [address] [place] [address] documented as of this encounter
--- OUTSIDE RECORDS SUMMARY | 2021-08-22 09:42 | XMS_ITS | Encounter Summary ---
:1945 Author Organization [facility] [address] Care Team Providers Name Role Phone Kristyn Whitehead MD Primary Care Provider Reason for Visit Reason Onset Date Comments Medication Refill 04/08/2019 Encounter Details Date Type Department Care Team Description 04/08/2019 Refill Rheumatology at [facility] Alton Loera, Psoriatic arthritis [facility] [place] [address] [facility] [phone] RHEUMATOLOGY DEP [place], [place] [address] (Wo rk) Social History Tobacco Use Types Packs/Day Years Used Date Former Smoker Smokeless Tobacco: Never Used Sex Assigned at Date Recorded Not on file documented as of this encounter Plan of Treatment Upcoming Encounters Date Type Specialty Care Team Description 10/31/2021 Office Visit Rheumatology Bert Loera MD [facility] RHEUMATOLOGY DEP [place], [place] [address] (Wo rk) documented as of this encounter Visit Diagnoses Diagnosis Psoriatic arthritis Psoriatic arthropathy documented in this encounter Care Teams Instructor Ballroom Dancing Relationship Specialty Start Date End Date Kristyn Whitehead MD PCP - General 01/16/10 [address] [place] [address] documented as of this encounter
--- OUTSIDE RECORDS SUMMARY | 2021-08-22 09:42 | XMS_ITS | Encounter Summary ---
:1945 Author Organization [facility] [place] [address] Care Team Providers Name Role Phone Kristyn Whitehead MD Primary Care Provider Encounter Details Date Type Department Care Team Description 02/12/2018 Orders Only Rheumatology at [facility] Alton Loera Psoriatic arthritis; [facility] MD [place] [address] RHEUMATOLOGY DEP [place], [place] [address] (Wo rk) Social History Tobacco Use Types Packs/Day Years Used Date Former Smoker Smokeless Tobacco: Never Used Sex Assigned at Date Recorded Not on file documented as of this encounter Plan of Treatment Upcoming Encounters Date Type Specialty Care Team Description 10/31/2021 Office Visit Rheumatology Bert Loera MD [facility] RHEUMATOLOGY DEP [place], [place] [address] (Wo rk) documented as of this encounter Visit Diagnoses Diagnosis Psoriatic arthritis Psoriatic arthropathy High risk medication use Encounter for long-term (current) use of other medications documented in this encounter Care Teams Molder Wax Ball Relationship Specialty Start Date End Date Kristyn Whitehead MD PCP - General 01/16/10 [address] [place] [address] documented as of this encounter
--- OUTSIDE RECORDS SUMMARY | 2021-08-22 09:42 | XMS_ITS | Encounter Summary ---
:1945 Author Organization [facility] [place] [address] Care Team Providers Name Role Phone Kristyn Whitehead MD Primary Care Provider Reason for Visit Reason Onset Date Comments Other 04/13/2018 Encounter Details Date Type Department Care Team Description 04/13/2018 Telephone Rheumatology at [facility] [place] [address] Social History Tobacco Use Types Packs/Day Years Used Date Former Smoker Smokeless Tobacco: Never Used Sex Assigned at Date Recorded Not on file documented as of this encounter Miscellaneous Notes Telephone Encounter - Carlos Claudio RN - 04/13/2018 1:19 PM EST Message [facility]. Would you please call them and make sure theygot it? If not, see if they'll take a verbal. Nicolás Cazares ----- Message ----- From: Carlos Claudio, RN Sent: 04/13/2018 ??12:08 PM To: Duong Mckenna MD Subject: FW: RE: RE: Medication Question (not renewal) ----- Message ----- From: Emani Delong Sent: 04/13/2018 ??10:32 AM To: [facility] Subject: RE: RE: RE: Medication Question (not renewal) ----- Message from Gigi, My D - sent at 04/13/2018 10:32 AM EST ----- No higher dose of Methotrexate received at my [facility] in [place] yet?its on [address] ??[phone]. ?I only had 3 left today. ----- Message ----- From: DUONG MCKENNA MD Sent: 04/08/18, 4:55 PM To: July Sindi Subject: RE: RE: Medication Question (not renewal) July, Just stick with the 5 mg of prednisone a day for now. After a few weeks at the higher methotrexate dose, we'll startt tapering again. I doubt the BP spikes are related to the prednisone. It can be a side effect, but that's a low dose of prednisone to have it, and it should have been worse when you were on a higher dose. Dr. Mckenna ----- Message ----- ? From: July Sindi ? Sent: 04/08/2018 ??3:53 PM EST ? To: DUONG MCKENNA MD Subject: RE: RE: Medication Question (not renewal) I am taking 5 mg daily of prednisone. ??I think I'm tolerating the methotrexate ok unless high bloodpressure spikes is an issue. I've been experiencing those this last week only. ? I have a doctor here in [place] that probably would order the blood work. His name is Adan Morel at [facility] in [place]. Phone is [phone]. ?? I should be back in [place] early ??May ----- Message ----- From: DUONG MCKENNA MD Sent: 04/07/18, 5:43 PM To: July Sindi Subject: RE: Medication Question (not renewal) Hi July, That's good news! ??Currently you are on 4 tablets of methotrexate a week, correct? ??And you are tolerating that? ??4 pills a week may be adequate, but I would like you to go up to 5 pills for now since we are going to be tapering the prednisone. ??I sent that higher dose methotrexate prescription into your pharmacy down there. How much prednisone are you on right now? ??I will send you a tapering schedule. ??Also, where wouldyou like to have labs done down there? ??We need to check your blood counts and your chemistries while on the methotrexate, probably every 3 months or so. ??I assume that you are otherwise tolerating the methotrexate well? Let me know. ??Stay in touch. Dr. Mckenna ----- Message ----- ? From: July Sindi ? Sent: 04/07/2018 ??2:19 PM EST ? To: DUONG MCKENNA MD Subject: Medication Question (not renewal) Since increasing the methotrexate my thumbs are better. Still get dry but cuts and splits lessened. Moisturizers help. ? My Rx was for 3 per week originally so maybe you will need to update that so I don't run out sooner?When and how will I come off the prednisone? ??What do I need to have monitored by dr bourne here for methotrexate or folic acid? ??I'm not understanding that yet Pharmacy states patient p/u prescription for 25 tabs mtx on 04/07. documented in this encounter Plan of Treatment Upcoming Encounters Date Type Specialty Care Team Description 10/31/2021 Office Visit Rheumatology Bert Mckenna MD [facility] RHEUMATOLOGY [place], [place] [address] (Wo rk) documented as of this encounter Visit Diagnoses Not on filedocumented in this encounter Care Teams Sailor Relationship Specialty Start Date End Date Kristyn Whitehead MD PCP - General 01/16/10 [address] [place] [address] documented as of this encounter
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
--- OUTSIDE RECORDS SUMMARY | 2021-08-22 09:42 | XMS_ITS | Encounter Summary ---
:1945 Author Organization [facility] [place] [address] Care Team Providers Name Role Phone Kristyn Whitehead MD Primary Care Provider Reason for Visit Reason Onset Date Comments Medication Refill 07/30/2018 Encounter Details Date Type Department Care Team Description 07/30/2018 Refill Rheumatology at [facility] Carlos Claudio, Psoriatic arthritis; [facility] [place] [address] Social History Tobacco Use Types Packs/Day Years Used Date Former Smoker Smokeless Tobacco: Never Used Sex Assigned at Date Recorded Not on file documented as of this encounter Plan of Treatment Upcoming Encounters Date Type Specialty Care Team Description 10/31/2021 Office Visit Rheumatology Bert Loera MD [facility] DR RHEUMATOLOGY [place], [place] [address] (Wo rk) documented as of this encounter Visit Diagnoses Diagnosis Psoriatic arthritis Psoriatic arthropathy Rash Rash and other nonspecific skin eruption documented in this encounter Care Teams Section Cutter Relationship Specialty Start Date End Date Kristyn Whitehead MD PCP - General 01/16/10 [address] [place] [address] documented as of this encounter
--- OUTSIDE RECORDS SUMMARY | 2021-08-22 09:42 | XMS_ITS | Encounter Summary ---
:1945 Author Organization [facility] [place] [address] Care Team Providers Name Role Phone Kristyn Whitehead MD Primary Care Provider Reason for Visit Reason Onset Date Comments Triage 10/10/2017 Encounter Details Date Type Department Care Team Description 10/10/2017 Telephone Rheumatology at [facility] Freddy [place] [address] Social History Tobacco Use Types Packs/Day Years Used Date Former Smoker Smokeless Tobacco: Never Used Sex Assigned at Date Recorded Not on file documented as of this encounter Miscellaneous Notes Telephone Encounter - Freddy Esteban RN - 10/20/2017 9:10 AM EDT Images from the original note were not included. Alton Loera MD to Carlos Claudio RN ?? 8:03 AM Please tell her not to stop the Plaquenil. Ultimately that may replace the prednisone. She can't stay on that much prednisone forever and the Plaquenil takes 1-2 months to work. Also tell her to try and get away with 15 mg a day on the prednisone ??- the less the better. Thanks, Nicolás I spoke with Emani and she will follow plan of care above and call in if needed. Telephone Encounter - Carlos Claudio RN - 10/17/2017 11:17 AM EDT Patient calls clinic, leaves message regarding Prednisone. Patient states fingers are worsening, has expanded to 3 more fingers, cracked. Patients states wants to stop Plaquenil and will be increasing to 15-20 mg of Prednisone until clear. Telephone Encounter - Freddy Esteban RN - 10/16/2017 4:00 PM EDT I spoke with Emani and she states her thumb was starting to break open and bleed again and states sheincreased to 15 mg daily today. I advised of message above but Emani will call on Friday with an update before decreasing. Telephone Encounter - Freddy Esteban RN - 10/16/2017 11:40 AM EDT Alton Loera MD sent to Freddy Esteban RN ? Caller: Unspecified (6 days ago, ??9:33 AM) ? Okay, if her skin is doing okay, ask her to go to 10 mg a day (2 tabs a day !) on Friday, and stay there for the time being. Ask her to check back in 2 weeks unless she is having problems, in which case, she should contact us right away. Thanks, Nicolás Called Emani to advise on the Prednisone message above from Dr. Loera. Left message asking for RTC tonurse. Telephone Encounter - Freddy Esteban RN - 10/15/2017 12:07 PM EDT I spoke with Emani in regards to dose of Prednisone she is taking and she states that she is taking 2.5 tablets of the 5mg tabs. Advised this is 12.5 mg. She is not clear as to what dose she is to take. Advised I will clarify with Dr. Loera and get back to her. Telephone Encounter - Freddy Esteban RN - 10/10/2017 12:48 PM EDT July calls to report that she has not taken the Plaquenil for at least 10 days, possibly 14 days. Noes look like she was supposed to be taking the Plaquenil. Will verify with Dr. Loera what he wouldlike her to do. documented in this encounter Plan of Treatment Upcoming Encounters Date Type Specialty Care Team Description 10/31/2021 Office Visit Rheumatology Bert Loera MD [facility] DR RHEUMATOLOGY [place], [place] [address] (Wo rk) documented as of this encounter Visit Diagnoses Not on filedocumented in this encounter Care Teams Tobacco Grower Relationship Specialty Start Date End Date Kristyn Whitehead MD PCP - General 01/16/10 [address] [place] [address] documented as of this encounter
--- OUTSIDE RECORDS SUMMARY | 2021-08-22 09:43 | XMS_ITS | Encounter Summary ---
:1945 [place] [address] Care Team Providers Name Role Phone Kristyn Whitehead MD Primary Care Provider Reason for Referral Consultation (Routine) - Closed Specialty Diagnoses / Referred By Contact Referred To Contact Procedures Cardiac Rehabilitation Diagnoses S/P coronary artery stent placement Dannie Meneses Cardiac RehabKAMRON MD [address] [place], [place] CARDIOLOGY DEPT. [address] [place] [address] Referral ID Status Reason Start Date Expiration Date Visits V isits Requested Authorized [id number] Closed Consult, 11/08/2015 05/06/2016 36 36 Test & Treat Encounter Details Date Type Department Care Team Description 11/08/2015 Orders Only Cardiac Rehab Cherise Hodge, S/P coronary artery [facility] [place] [address] Social History Tobacco Use Types Packs/Day Years Used Date Never Assessed Sex Assigned at Date Recorded Not on file documented as of this encounter Progress Notes Taryn, Cherise J, RN - 11/08/2015 7:47 AM EDT I called and spoke with this patient regarding participation in outpatient cardiac rehab at [facility]. She states she has done cardiac rehab once in the past and is interested in participating again. Will send the referral and discharge summary to [facility] cardiac rehab. She should hear from them within 7-10 days. documented in this encounter Plan of Treatment Upcoming Encounters Date Type Specialty Care Team Description 10/31/2021 Office Visit Rheumatology Bert Loera MD [facility] ER RHEUMATOLOGY [place], [place] [address] (Wo rk) Scheduled Referrals Name Type Priority Associated Diagnoses Order S chedule Referral to Outpatient Referral Routine S/P coronary artery O rdered: Cardiac Rehab stent placement 11/08/2015 documented as of this encounter Visit Diagnoses Diagnosis S/P coronary artery stent placement Postsurgical percutaneous transluminal c oronary angioplasty status documented in this encounter Care Teams Benzene Operator Relationship Specialty Start Date End Date Kristyn Whitehead MD PCP - General 01/16/10 [address] [place] [address] documented as of this encounter
--- OUTSIDE RECORDS SUMMARY | 2021-08-22 09:43 | XMS_ITS | Encounter Summary ---
:1945 Author Organization [facility] [place] [address] Care Team Providers Name Role Phone Kristyn Whitehead MD Primary Care Provider Encounter Details Date Type Department Care Team Description 09/05/2017 Hospital XRay at [facility] Loera, Christopher Psoriasiform dermatitis; Encounter [address] [facility] MD [place] Arthralgia, unspecified joint; Dr [facility] Chronic right-sided low [place] [address] RHEUMATOLOGY DEPT. [phone] [place], [place] [address] (Wo rk) Social History Tobacco Use Types Packs/Day Years Used Date Former Smoker Smokeless Tobacco: Never Used Sex Assigned at Date Recorded Not on file documented as of this encounter Medications at Time of Discharge Medication Sig Dispensed Refills Start Date End Date EPINEPHrine 0.3 mg/0.3 Inject into the 0 09/24/19 13 mL Auto-Injector muscle. vit A,C,[id number] Take by mouth. 0 09/23/2012 (Ocuvite PreserVision) 7,160 unit- 113 mg-100 unit Tablet aspirin 81 mg Tablet, Take 81 mg by mouth 0 Delayed Release (E.C.) daily. cholecalciferol, Vitamin Take by mouth daily. 0 D3, 50 mcg (2,000 unit) Tablet cyanocobalamin, vitamin Inject as directed. 0 B-12, 1,000 mcg/mL Every 3 weeks Solution flurbiprofen (ANSAID) as needed. 0 06/20/2017 100 mg Tablet pantoprazole (PROTONIX) daily. 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 Tablet PARoxetine (PAXIL) 30 mg Take 30 mg by mouth 0 Tablet every morning. atorvastatin (LIPITOR) Take 40 mg by mouth 0 40 mg Tablet daily. nitroGLYcerin 0.4 MG = 1 0 09/06/2009 (NITROSTAT) 0.4 mg SL Tablet(s), tablet Sublingual, PRN chest pain lisinopril Take by mouth 2 0 09/06/2009 (PRINIVIL;ZESTRIL) 5 mg times daily. tablet Calcium 0 09/04/2009 Carbonate-Vitamin D3 (CALCIUM 600 WITH VITAMIN D3) 600 mg(1,500mg) -200 unit Tab UNABLE TO FIND Uses CBD oil and CBD 0 09/16/2017 salve predniSONE (DELTASONE) 5 Take 4 tablets by 120 tablet 5 08/2407/14/2018 mg TabletIndications: mouth daily. Psoriasiform dermatitis, Arthralgia, unspecified joint documented as of this encounter Plan of Treatment Upcoming Encounters Date Type Specialty Care Team Description 10/31/2021 Office Visit Rheumatology Bert Loera MD [facility] RHEUMATOLOGY [place], [place] [address] (Wo rk) documented as of this encounter Procedures Procedure Name Priority Date/Time Associated Diagnosis Comme nts XR LUMBAR SPINE 2 Routine 09/05/2017 3:50 PM Psoriasiform Resu lts for this OR 3 VIEWS EDT dermatitis procedure are in Arthralgia, the results unspecified join t section. Chronic right-sided low back pain without sciatica documented in this encounter Results XR Lumbar Spine 2 Or 3 Views (Generic) (09/05/2017 3:50 PM EDT) Anatomical Region Laterality Modality L-spine N/A Digital Radiography Specimen (Source) Anatomical Location Collection Method / Collectio n Time Received Time / Laterality Volume Impressions 09/05/2017 4:22 PM EDT There are degenerative sclerotic changes at the L4-5 and L5-S1 facet joints. Significant disc space narrowing compati ble with degenerative disc disease L5-S1 Narrative 09/05/2017 4:22 PM EDT EXAMINATION: XR LUMBAR SPINE 2 OR 3 VIEWS (GENERIC) CLINICAL HISTORY: Chronic LBP. Recent le ft > right SI area pain. SI arthritis, facet disease, both, etc.? TECHNIQUE: Lumbar spine 2 views COMPARISON: None FINDINGS: The lumbar vertebra are normally aligned but there is a slight curvature of the lower lumbar spine convex to the left ce ntered at L4. There is significant narrowing of the L5-S1 disc space. The p edicles appear intact, there are sclerotic changes at the L4-5 and L5-S1 facet joints. Sacroiliac joints are unremarkable. A considerable amount of s tool seen in the colon Procedure Note Rebel Walsh MD - 09/05/2017Format ting of this note might be different from the original. EXAMINATION: XR LUMBAR SPINE 2 OR 3 VIEW S (GENERIC) CLINICAL HISTORY: Chronic LBP. Recent le ft > right SI area pain. SI arthritis, facet disease, both, etc.? TECHNIQUE: Lumbar spine 2 views COMPARISON: None FINDINGS: The lumbar vertebra are normally aligned but there is a slight curvature of the lower lumbar spine convex to the left ce ntered at L4. There is significant narrowing of the L5-S1 disc space. The p edicles appear intact, there are sclerotic changes at the L4-5 and L5-S1 facet joints. Sacroiliac joints are unremarkable. A considerable amount of s tool seen in the colon IMPRESSION There are degenerative sclerotic changes at the L4-5 and L5-S1 facet joints. Significant disc space narrowing compati ble with degenerative disc disease L5-S1 Alton Loera MD IMG DX ORDERABLES documented in this encounter Visit Diagnoses Diagnosis Psoriasiform dermatitis Other psoriasis and similar disorders Arthralgia, unspecified joint Chronic right-sided low back pain withou t sciatica documented in this encounter Care Teams Machine Feed Operator Relationship Specialty Start Date End Date Kristyn Whitehead MD PCP - General 01/16/10 [address] [place] [address] documented as of this encounter
--- OUTSIDE RECORDS SUMMARY | 2021-08-22 09:43 | XMS_ITS | Encounter Summary ---
:1945 Author Organization [facility] [place] [address] Care Team Providers Name Role Phone Kristyn Whitehead MD Primary Care Provider Encounter Details Date Type Department Care Team Description 08/09/[address] [facility] Eliza Wood PA [address] [facility] [place] [address] [facility] [phone] [place], [place] [address] (Wo rk) Social History Tobacco Use Types Packs/Day Years Used Date Never Assessed Sex Assigned at Date Recorded Not on file documented as of this encounter Miscellaneous Notes Telephone Encounter - Eliza Wood PA - 08/09/2016 11:30 AM EDT I called July to ask her to return to clinic on Friday when I am working the Dr. Moon. I left her a message. I would like her scheduled on the half day when Dr. Moon is precepting. I asked her to please hold off on treating every lesion and to only use topicals on those areas that are too uncomfortable, like the fingertips and open areas on the fingers. documented in this encounter Plan of Treatment Upcoming Encounters Date Type Specialty Care Team Description 10/31/2021 Office Visit Rheumatology Bert Loera MD [facility] DR RHEUMATOLOGY [place], [place] [address] (Wo rk) documented as of this encounter Visit Diagnoses Not on filedocumented in this encounter Care Teams Dish Up Person Relationship Specialty Start Date End Date Kristyn Whitehead MD PCP - General 01/16/10 [address] [place] [address] documented as of this encounter
--- OUTSIDE RECORDS SUMMARY | 2021-08-22 09:43 | XMS_ITS | Encounter Summary ---
:1945 Author Organization [facility] [place] [address] Care Team Providers Name Role Phone Kristyn Whitehead MD Primary Care Provider Reason for Visit Auth/Cert Specialty Diagnoses / Procedures Referred By Contact Refer red To Contact Diagnoses Unstable angina [place] Referral ID Status Reason Start Date Expiration Date Visits Requ ested Visits Authorized [id number] 1 1 Encounter Details Date Type Department Care Team Description 09/15/2017 Surgery Crm Marketing Executive Tristen Calderón CARDIAC CATHETERIZATION [facility] MD Alexa [facility]ly [facility] [place] [address] CARDIOLOGY DEPT [phone] [place], [place] [address] (Wo rk) Social History Tobacco Use Types Packs/Day Years Used Date Former Smoker Smokeless Tobacco: Never Used Sex Assigned at Date Recorded Not on file documented as of this encounter Last Filed Vital Signs Vital Sign Reading Time Taken Comments Blood Pressure 131/72 09/15/2017 4:07 PM EDT Pulse 46 09/15/2017 4:07 PM EDT Temperature 36.7 ??C (98.1 ??F) 09/15/2017 8:12 AM EDT Respiratory Rate 13 09/15/2017 4:07 PM EDT Oxygen Saturation 99% 09/15/2017 4:07 PM EDT Inhaled Oxygen Concentration - - Weight 82.1 kg (181 lb) 09/15/2017 6:41 AM EDT Height 165.1 cm (5' 5) 09/12/2017 11:05 PM EDT Body Mass Index 30.23 09/12/2017 11:05 PM EDT documented in this encounter Discharge Summaries Eliecer Mckeon - 09/16/2017 9:11 AM EDT Discharge Summary Patient Name: Emani Delong Patient Age: 72 y.o. Language: Romanian Race: White Ethnicity: Not nor Admit date: 09/12/2017 Discharge date and time: 09/16/2017 12:05 PM Attending Physician: No att. providers found Discharge Physician: Eliecer Mckeon MD ID: 72 y/o woman with hx of known CAD s/p PCI in 2009 to RCA (DIANA) and 2016 to LAD (DIANA) who p/w atypical chest pain with transient nonspecific TWI in the septal leads, possibly consistent with coronary vasospasm Follow-up Recommendations for Providers: 1. New meds: amlodipine 2.5mg daily for coronary vasospasm 2. Attempted to start beta blockade (metoprolol tartrate 12.5 mg bid), discontinued due to bradycardia (sinus bradycardia in the 40s). She may be able to tolerate this in the future as an outpatient and she should be trialed on this given her CAD Inpatient Provider Contact Information: For questions regarding this document or issues relating to this hospitalization on the Medical Service, please contact your inpatient physician through the [facility] [employer] . Have the [employer] page the S1 resident balloon tester at the [phone] pager. Discharge Diagnoses (Hospital Problems) and Secondary Diagnoses (Chronic Problems): Active Hospital Problems Diagnosis ??? Unstable angina ??? CAD (coronary artery disease) ??? Psoriasiform dermatitis Resolved Hospital Problems Diagnosis Date Resolved No resolved problems to display. Active Non-Hospital Problems Diagnosis ??? CIS - Hyperlipidemia ??? CIS - Anxiety ??? CIS - Chest pain ??? CIS - Depression ??? CIS - Hypothyroid Operations/Major Procedures: Operations: Procedure(s) with comments: CARDIAC CATHETERIZATION - Procedure: Coronary Angiography Other Major Procedures: History of Presentation (as per admission H&P): 72??year old woman??with history of hypothyroidism, CAD s/p DIANA to the RCA in 2010 and DIANA to the LAD (2016),??who presented to OSH with chest discomfort. She had been in her USOH up until last week, at which time she developed worsening HANDLEY. ?? Patient woke up the AM of presentation at 630 AM with substernal chest pressure with associated dyspnea. She took a nitro with relief. She then took a walk with her friend and reports she had diaphoresis and dyspnea. She hasn't walked a lot recently due to sciatica so she attributed it to being out ofshape. She continued to be tired and dyspneic but had no further chest pain or pressure. Her clinical specialist medical device called her with some results regarding ongoing workup for some skin findings she previously had on her hands who instructed her to present to the ED after hearing about her symptoms. ?? On review of symptoms she does report two episodes of sharp left shoulder pain in the past two weeks, one while sitting at rest in Restaurant ?? She presented to [facility] where EKG showed new wave inversions in V1 and V2 ?? She states presentation was similar to her past presentations for ACS ?? She had recently started prednisone on 09/05 per rheumatology for an undefined eczema, which improvedwith the prednisone. There was some concern for drug rash and she has been off metoprolol. ? Pertinent Diagnostic Findings: Vitals: T- 36.4?HR-72?BP- 140/77?R- 19?SaO2- 94??on RA EKG: New TWI in V1 and V2 Troponin: neg (0.02) Hospital Course: 1. Chest pain, possibly coronary vasospasm After admission, Ms. Delong had no further episodes of chest discomfort. She was taken to the cardiac catheterization laboratory where angiography revealed no significant obstructive disease. Following this, she ambulated around the hospital with no significant angina. We discussed the uncertaintyof a true diagnosis for her chest pain (differential includes microvascular disease vs coronary vasospasm vs esophageal spasm), however we were able to confirm no significant obstructive epicardial disease. We felt that empiric treatment with a calcium channel monique would treat all of these conditions and could result in significant symptom improvement. She was unable to tolerate beta blockade due to sinus bradycardia in the 40s (only symptom was fatigue), however in the future she may be able to tolerate this. Functional and Cognitive Status: Not requiring any additional services Important Studies and Lab Data: Labs: Lab Results Component Value Date WBC 7.9 09/16/2017 HGB 15.3 09/16/2017 HCT 45.4 09/16/2017 PLATELET 245 09/16/2017 Recent Labs 09/16/17 0346 INR 0.9 Lab Results Component Value Date NA 139 09/16/2017 K 4.6 09/16/2017 CL 102 09/16/2017 CO2 25 09/16/2017 BUN 28 (H) 09/16/2017 CREATININE 1.17 09/16/2017 Recent Labs 09/13/17 0329 TSH 1.54 Recent Labs 09/14/17 0536 HA1C 5.6 Recent Labs 09/14/17 0844 09/13/17 1552 09/13/17 0955 CK 37 44 50 TROPONINT <0.01 <0.01 <0.01 Lab Results Component Value Date CHLPL 168 09/14/2017 HDL 48 09/14/2017 CHOLHDL 3.5 09/14/2017 TRIG 158 09/14/2017 LDLCHOL 88 09/14/2017 LDLDIRECT 102 09/14/2017 Studies: TTE 1. The left ventricular chamber size is normal. Concentric left ventricular remodeling is observed. Basal septal hypertrophy is observed. There is no evidence of LVOT obstruction. There is normal global left ventricular systolic function. Ejection fraction is estimated to be 65%. There are no left ventricular segmental wall motion abnormalities. Assessment of diastolic function is indeterminate. 2. The left atrium is normal in size. 3. Right ventricular chamber size, wall thickness, and systolic function are within normal limits. The estimated pulmonary artery systolic pressure is 24 mmHg. 4. The aortic valve is tricuspid. Mild aortic leaflet calcification is visualized. There is mild aortic valve stenosis. The mean trans-valvular gradient across the aortic valve is 9 mmHg. The peak instantaneous trans-valvular gradient across the aortic valve is 14 mmHg. Mild to moderate (1-2+/4+) aortic valve regurgitation is present. 5. There is mitral annular calcification. There is no evidence of mitral stenosis. There is mild (1+/4+) mitral regurgitation present. 6. Compared to 09/06/2009, the aortic valve has become mildly stenotic. Pending Studies and Lab Data: none Discharge Conditions/Prognosis: Stable Discharge to: Home without services Updated Allergies/ADRs: Allergies Allergen Reactions ??? Legumes Anaphylaxis ??? Lettuce Anaphylaxis ??? Soy Anaphylaxis ??? Sulfa (Sulfonamide Antibiotics) CIS - Hives ??? Tomato Anaphylaxis ??? Effexor [Venlafaxine] Other (See Comments) Lethargy Immunizations Given this Hospitalization: Immunization History Administered Date(s) Administered ??? DTaP 06/18/2007 ??? Influenza Vaccine (Novel) O3O1-85, Injectable 12/25/2008 ??? Influenza Vaccine, Whole 12/25/2008 ??? Pneumococcal Conjugate (13 Valent) 01/06/2015 ??? Pneumococcal Polyvalent 23 10/26/2009 ??? Zoster Vaccine, Live 02/24/2011 Discharge Medications: Your Medications Notice Some of the medications listed here do not show instructions, such as how often to take the medication. Ask your doctor or nurse how to use these medications. Specifically ask about this and similar medications: Calcium Carbonate-Vitamin D3 (CALCIUM 600 WITHVITAMIN D3) 600 mg(1,500mg) -200 unit Tab New Medications Dose Details amLODIPine 2.5 mg Tab Commonly known as: NORVASC Take 1 tablet by mouth daily. 2.5 mg Quantity: 90 tablet Refills: 3 Continued medications, unchanged Dose Details aspirin 81 mg Tbec Take 81 mg by mouth daily. 81 mg Refills: 0 atorvastatin 40 mg Tab Commonly known as: LIPITOR Take 40 mg by mouth daily. 40 mg Refills: 0 CALCIUM 600 WITH VITAMIN D3 600 mg(1,500mg) -200 unit Tab ?nk?wn!?? Generic drug: calcium-vitamin D3 Refills: 0 cyanocobalamin (vitamin B-12) 1,000 mcg/mL Soln Inject as directed. Every 3 weeks Refills: 0 flurbiprofen 100 mg Tab Commonly known as: ANSAID as needed. Refills: 0 levothyroxine 75 mcg Tab Commonly known as: SYNTHROID Take 75 mcg by mouth daily. 75 mcg Refills: 0 lisinopril 5 mg Tab Commonly known as: PRINIVIL;ZESTRIL 5 MG = 1 Tablet(s), PO, Once daily Refills: 0 NITROSTAT 0.4 mg Subl 0.4 MG = 1 Tablet(s), Sublingual, PRN chest pain Generic drug: nitroGLYcerin Refills: 0 pantoprazole 40 mg Tbec Commonly known as: PROTONIX daily. Refills: 0 PARoxetine 30 mg Tab Commonly known as: PAXIL Take 30 mg by mouth every morning. 30 mg Refills: 0 predniSONE 5 mg Tab Commonly known as: DELTASONE Take 4 tablets by mouth daily. 20 mg Quantity: 120 tablet Refills: 5 tacrolimus 0.1 % Oint Commonly known as: PROTOPIC Apply to affected areas on hands, elbows, and feet twice daily on weekdays with occlusion at night Quantity: 60 g Refills: 1 Vitamin D-3 2,000 unit Tab Take by mouth daily. Generic drug: cholecalciferol (Vitamin D3) Refills: 0 STOPPED Medications UNABLE TO FIND Smoking Status at Discharge: History Smoking Status ??? Former Smoker Smokeless Tobacco ??? Never Used Instructions Given to Patient at Discharge: Patient Instructions Patient Instructions on Discharge to Home Why you were hospitalized: You were hospitalized due to concern for a heart attack. Your coronary arteries were not obstructed and your symptoms were suspected to secondary to spontaneous vasospasm (constriction) of the coronary arteries. When to call your doctor: - Chest pain, worsening shortness of breath, fatigue with usual exertion, or new rest/night time symptoms. - Call for signs of increased wound drainage, redness, swelling, or increased pain at the site of your cardiac cath. - Call if you develop a temp >100.5 If you have non-emergent questions between now and the time of your follow up appointments: During 8am-5pm Friday through Friday call [phone] to speak with a nurse in the cardiology clinic All other times call [phone] and ask to speak to the neighborhood aide balloon tester. Home oxygen therapy: None Arrangements for VNA/home care: None Follow up Appointments: Please schedule a follow up appointment with your primary care physician for 1-2 weeks from discharge You have an appointment already scheduled with your commodity analyst, Dr. Good in 1 month, please follow up with him PCP: Kristyn Whitehead MD at [phone] Your Inpatient Doctor(s) at [facility]: Raj Smith MD - Attending physician Eliecer Mckeon MD - Fellow Your Primary Care Provider: Kristyn Whitehead MD [address] / [place] [id number] For questions regarding issues relating to your hospitalization on the Hospital Medicine Service, please contact your inpatient physician through the [facility] [employer] [phone]. Issues after hours and on weekends will be handled by the Hospitalist staff on-call. General Instructions None Discharge References/Attachments None documented in this encounter Discharge Instructions Patient InstructionsJosué Mckeonic Romi - 09/16/2017 1:52 AM EDT Patient Instructions on Discharge to Home Why you were hospitalized: You were hospitalized due to concern for a heart attack. Your coronary arteries were not obstructed and your symptoms were suspected to secondary to spontaneous vasospasm (constriction) of the coronary arteries. When to call your doctor: - Chest pain, worsening shortness of breath, fatigue with usual exertion, or new rest/night time symptoms. - Call for signs of increased wound drainage, redness, swelling, or increased pain at the site of your cardiac cath. - Call if you develop a temp >100.5 If you have non-emergent questions between now and the time of your follow up appointments: During 8am-5pm Friday through Friday call [phone] to speak with a nurse in the cardiology clinic All other times call [phone] and ask to speak to the neighborhood aide balloon tester. Home oxygen therapy: None Arrangements for VNA/home care: None Follow up Appointments: Please schedule a follow up appointment with your primary care physician for 1-2 weeks from discharge You have an appointment already scheduled with your commodity analyst, Dr. Good in 1 month, please follow up with him PCP: Kristyn Whitehead MD at [phone] Your Inpatient Doctor(s) at [facility]: Raj Smith MD - Attending physician Eliecer Mckeon MD - Fellow Your Primary Care Provider: Kristyn Whitehead MD [address] / [place] [address] For questions regarding issues relating to your hospitalization on the Hospital Medicine Service, please contact your inpatient physician through the [facility] [employer] [phone]. Issues after hours and on weekends will be handled by the Hospitalist staff on-call. documented in this encounter Medications at Time of Discharge Medication Sig Dispensed Refills Start Date End Date EPINEPHrine 0.3 mg/0.3 Inject into the 0 09/24/19 13 mL Auto-Injector muscle. vit A,C,D-sgsx-aqaagc Take by mouth. 0 09/23/2012 (Ocuvite PreserVision) 7,160 unit- 113 mg-100 unit Tablet amLODIPine (NORVASC) 2.5 Take 1 tablet by 90 tablet 3 09/16 mg Tablet mouth daily. aspirin 81 mg Tablet, [...] VITAMIN D3) 600 mg(1,500mg) -200 unit Tab predniSONE (DELTASONE) 5 Take 4 tablets by 120 tablet 5 08/2407/14/2018 mg TabletIndications: mouth daily. Psoriasiform dermatitis, Arthralgia, unspecified joint documented as of this encounter Progress Notes Kenisha Proter RN - 09/16/2017 9:11 AM EDT IV and telemetry discontinued. Patient able to ambulate independently without chest pain or SOB. VSSand assessment benign. Patient verbalizes understanding of discharge instructions including post cath care. Patient denies further questions. Eliecer Mckeon - 09/16/2017 8:53 AM EDT The patient was seen and examined on rounds. Vital signs were stable, a thorough physical exam was conducted, and the patients most recent lab values were reviewed. Last value Range last 24 hrs Temperature Temp: 37.2 ??C (99 ??F) Temp: [36 ??C (96.8 ??F)-37.2 ??C (99 ??F)] Heart Rate Heart Rate: 55 Heart Rate: [42-65] Blood Pressure BP: 115/78 BP: (94-132)/(52-106) Respiratory Rate Resp: 18 Resp: [11-18] SpO2 SpO2: 97 % SpO2: [92 %-100 %] Physical Exam Most Recent Vitals: 09/16/17 0816 BP: 115/78 Pulse: 55 Resp: 18 Temp: 37.2 ??C (99 ??F) SpO2: 97% Gen:AAOX3, pleasant and in NAD Pulm: Normal respiratory effort, Lungs CTAB CV: RRR, s1 s2 normal, no m/r/g Abd: soft, NT, ND, NABS throughout, no hepatosplenomegally Ext: no edema, no clubbing, no cyanosis. DP pulses equal and full b/l. Cath site (r radiaL) CDI Neuro: no focal deficits grossly noted. A/P Medications were reviewed, and a discharge plan was finalized. IV access was removed, and the patient was provided with educational material prior to discharge. The patient was discharged in stable condition. Please see the discharge summary of today's date for complete assessment and plan Mahnaz Petty RN - 09/16/2017 6:00 AM EDT VSS. Tele SB 45-88. Alert and Oriented x4. Denies CP or SOB. Up and walking. Patient admitted to walking to BR and voiding in toilet, told to use hat to measure output. Right radial site C/D/I. +2 pulse, Small amount of ecchymosis. Nirmal Vizcaino MD - 09/15/2017 5:59 PM EDT Post Cath Note S: No chest pain, dyspnea, right arm or hand pain. Dressing clean and dry, no signs of infection, nobleeding from right radial access site. O: Most Recent Vitals: 09/15/17 1730 BP: 127/87 Pulse: (!) 44 Resp: 16 Temp: 36 ??C (96.8 ??F) SpO2: 95% General: Lying in bed in NAD. Right Upper Ext: warm well perfused, sensation intact, 2+ radial pulse, no hematoma or bruits, normal reverse Allens test A/P: s/p cath with benign appearing right radial access site. Nirmal Vizcaino MD, PGY-2 Cardiology Service, Pager # [phone] Eliecer Mckeon - 09/15/2017 8:24 AM EDT ASA 3 Mallampati 2 Jayda Pope - 09/15/2017 7:00 AM EDT Inpatient Cardiology Progress Note Patient Name: July Orestes Date of Admission: 09/12/2017 ( Hospital Day 2 days ) Service: S1 ID: 72??year old woman??with history of hypothyroidism, CAD s/p DIANA??to the RCA in 2009 and DIANA to the LAD (10/2015) who presented in transfer from [facility] with concern for unstable angina. Active Problems: Active Hospital Problems Diagnosis ??? Unstable angina ??? CAD (coronary artery disease) ??? Psoriasiform dermatitis Resolved Hospital Problems Diagnosis Date Resolved No resolved problems to display. 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 EKG shows no ischemic changes, troponin negatives. Physical Exam: Last value Range last 24 hrs Temperature Temp: 36.7 ??C (98.1 ??F) Temp: [36.6 ??C (97.9 ??F)-37.1 ??C (98.8 ??F)] Heart Rate Heart Rate: (!) 45 Heart Rate: [45-57] Blood Pressure BP: 101/57 BP: (101-149)/(57-85) Respiratory Rate Resp: 18 Resp: [15-18] SpO2 SpO2: 94 % SpO2: [94 %-97 %] Intake/Output Summary (Last 24 hours) at 09/15/17 0613 Last data filed at 09/15/17 0200 Gross per 24 hour Intake 650 ml Output 2050 ml Net -1400 ml cumulative I/O's since admission: Patient Vitals for the past 168 hrs: Weight 09/14/17 0500 82.7 kg (182 lb 5.1 oz) 09/12/17 2305 84.4 kg (186 lb 1.1 oz) Gen: pleasant, in NAD HEENT: No carotid bruits CV: bradycardic, normal S1 and S2, systolic ejection murmur at LLSB, no JVD Resp: chest symmetric, breathing comfortably, musical expiratory rhonchi throughout Abd: +BS, soft, nontender, nondistended Ext: warm, well-perfused, 2+ PT/DP pulses, no KANNAN Neuro: alert and responsive. Without focal deficit Labs Recent Labs 09/15/17 0351 09/14/17 0536 09/13/17 0329 WBC 6.6 6.1 8.3 HGB 15.1 15.4 14.0 HCT 45.9* 46.0* 41.9 PLATELET 253 241 244 Recent Labs 09/15/17 0351 09/14/17 0536 09/13/17 0329 NA 141 142 140 K 4.4 4.3 4.1 CL 104 104 101 CO2 24 Not Perf 24 BUN 25* 23* 25* CREATININE 0.99 0.91 0.95 Recent Labs 09/13/17 0329 AST 16 ALT 23 ALKPHOS 65 BILITOT 0.4 BILIDIR 0.1 Recent Labs 09/15/17 0351 09/14/17 0536 09/13/17 0329 CALCIUM 9.2 9.0 8.9 MAGNESIUM -- -- 0.97 PHOS -- -- 4.0 Recent Labs 09/15/17 0351 09/14/17 0536 09/13/17 0329 INR 0.9 0.9 1.0 PT 10.2 9.9 10.6 PTT -- -- >160* Recent Labs 09/14/17 0844 09/13/17 1552 09/13/17 0955 CK 37 44 50 TROPONINT <0.01 <0.01 <0.01 Medications: ??? aspirin 81 mg Oral Daily ??? atorvastatin 40 mg Oral Daily ??? levothyroxine 75 mcg Oral Daily ??? lisinopril 5 mg Oral Daily ??? PARoxetine 30 mg Oral QAM ??? tacrolimus Topical (Top) BID ??? metoprolol tartrate 12.5 mg Oral 2 times per day ??? sodium chloride 0.9 % 5 mL Intravenous BID ??? clopidogrel 75 mg Oral Daily ??? heparin (porcine) 850 Units/hr (09/14/17 0703) nitroGLYcerin, heparin (porcine) AND heparin (porcine), sodium chloride 0.9 %, lidocaine, acetaminophen Assessment: 72??year old woman??with history of hypothyroidism, CAD s/p DIANA??to the RCA in 2009 and DIANA to the LAD (10/2015) who presented in transfer from [facility] with concern for unstable angina. EKG and troponins were not suggestive of ACS, however she remained symptomatic and has an extensive cardiac history. Cardiac catheterization performed 09/15 did not suggest CAD as etiology of CP -- consideration for Prinzmetal angina. Started amlodipine 2.5mg. Will continue medical management. Plan to discharge tomorrow pending stability on amlodipine. Plan: # Unstable angina - resolved; currently asymptomatic # CAD - Asymptomatic today; has not used PRN nitro - Cardiac cath did not suggest CAD as an etiology -- suspicion for Prinz-metal angina - Amlodipine 2.5mg daily - ASA 81 mg qd - Clopidogrel 75 mg qd; consider d/c tomorrow - Heparin gtt; consider d/c tomorrow - Lipitor 40 mg qhs - Metoprolol tartrate 12.5 mg BID; changed holding parameters to HR <50 (previously <55); monitor HR overnight; consider reducing dose to 6.25mg or 12.5mg succinate once daily if appropriate. Wasnot on metoprolol at home. - Lisinopril 5 mg qd # Home meds - Continue home paroxetine, levothyroxine # Other - DVT ppx: On heparin gtt - GI ppx: added protonix 40mg today - Diet: [facility] - Access: peripheral IV - Dispo: to home - code status: Full Code Jayda Pope MD, PGY-1 Cardiology S1, Pager [phone] Associated attestation - Raj Smith MD - 09/15/2017 10:48 PM EDT Cardiology Attending Addendum Active Hospital Problems Diagnosis ??? Unstable angina ??? CAD (coronary artery disease) ??? Psoriasiform dermatitis Resolved Hospital Problems Diagnosis Date Resolved No resolved problems to display. I have interviewed and examined the patient, reviewed the available data, and have discussed my findings, assessment and plan with the patient and the team on rounds today. I agree with Dr. Pope's noteas below which reflects our discussion. Nirmal Vizcaino MD - 09/14/2017 6:01 PM EDT Inpatient Cardiology Progress Note Patient Name: July Orestes Date of Admission: 09/12/2017 ( Hospital Day 1 day ) Service: S1 ID: 72??year old woman??with history of hypothyroidism, CAD s/p DIANA??to the RCA in 2009 and DIANA to the LAD (10/2015) who presented in transfer from [facility] with concern for unstable angina. Active Problems: Active Hospital Problems Diagnosis ??? Unstable angina ??? CAD (coronary artery disease) ??? Psoriasiform dermatitis Resolved Hospital Problems Diagnosis Date Resolved No resolved problems to display. 24 hr events/Subjective: - No acute events overnight ROS: SOB and associated chest pressure this AM. EKG shows no ischemic changes, troponin negative Physical Exam: Last value Range last 24 hrs Temperature Temp: 36.6 ??C (97.9 ??F) Temp: [36.5 ??C (97.7 ??F)-37 ??C (98.6 ??F)] Heart Rate Heart Rate: (!) 49 Heart Rate: [37-60] Blood Pressure BP: 149/79 BP: (105-149)/(64-84) Respiratory Rate Resp: 16 Resp: [13-21] SpO2 SpO2: 95 % SpO2: [92 %-97 %] Intake/Output Summary (Last 24 hours) at 09/14/17 1808 Last data filed at 09/14/17 1700 Gross per 24 hour Intake 650 ml Output 700 ml Net -50 ml cumulative I/O's since admission: Patient Vitals for the past 168 hrs: Weight 09/14/17 0500 82.7 kg (182 lb 5.1 oz) 09/12/17 2305 84.4 kg (186 lb 1.1 oz) Gen: pleasant, in NAD HEENT: moist mucous membranes CV: RRR, normal S1 and S2, no m/r/g, no JVD Resp: chest symmetric, breathing comfortably, CTABL Abd: +BS, soft, nontender, nondistended Ext: warm, well-perfused, 2+ PT/DP pulses, KANNAN Neuro: alert and responsive. Without focal deficit Labs Recent Labs 09/14/17 0536 09/13/17 0329 WBC 6.1 8.3 HGB 15.4 14.0 HCT 46.0* 41.9 PLATELET 241 244 Recent Labs 09/14/17 0536 09/13/17 0329 NA 142 140 K 4.3 4.1 CL 104 101 CO2 Not Perf 24 BUN 23* 25* CREATININE 0.91 0.95 Recent Labs 09/13/17 0329 AST 16 ALT 23 ALKPHOS 65 BILITOT 0.4 BILIDIR 0.1 Recent Labs 09/14/17 0536 09/13/17 0329 CALCIUM 9.0 8.9 MAGNESIUM -- 0.97 PHOS -- 4.0 Recent Labs 09/14/17 0536 09/13/17 0329 INR 0.9 1.0 PT 9.9 10.6 PTT -- >160* Recent Labs 09/14/17 0844 09/13/17 1552 09/13/17 0955 CK 37 44 50 TROPONINT <0.01 <0.01 <0.01 Medications: ??? aspirin 81 mg Oral Daily ??? atorvastatin 40 mg Oral Daily ??? levothyroxine 75 mcg Oral Daily ??? lisinopril 5 mg Oral Daily ??? PARoxetine 30 mg Oral QAM ??? tacrolimus Topical (Top) BID ??? metoprolol tartrate 12.5 mg Oral 2 times per day ??? sodium chloride 0.9 % 5 mL Intravenous BID ??? clopidogrel 75 mg Oral Daily ??? heparin (porcine) 850 Units/hr (09/14/17 0703) nitroGLYcerin, heparin (porcine) AND heparin (porcine), sodium chloride 0.9 %, lidocaine, acetaminophen Assessment: 72??year old woman??with history of hypothyroidism, CAD s/p DIANA??to the RCA in 2009 and DIANA to the LAD (10/2015) who presented in transfer from [facility] with concern for unstable angina. Admitted for unstable angina, ischemic workup negative thus far despite ongoing chest discomfort/pressure. Given this, along with history of known coronary disease, will proceed with cardiac catheterization in the a.m. for further evaluation. Plan: # Unstable angina # CAD - ASA 81 mg qd - Clopidogrel 75 mg qd - Heparin gtt - Lipitor 40 mg qhs - Metoprolol tartrate 12.5 mg BID - Lisinopril 5 mg qd - Cardiac catheterization 09/15 # Home meds - Continue home paroxetine, levothyroxine # Other - DVT ppx: On heparin gtt - GI ppx: not indicated - [place] [facility] for cardiac cath in AM - Access: peripheral IV - code status: Full Code Nirmal Vizcaino MD, PGY-2 Cardiology S1, Pager [phone] Associated attestation - Raj Smith MD - 09/14/2017 11:58 PM EDT Cardiology Attending Addendum Active Hospital Problems Diagnosis ??? Unstable angina ??? CAD (coronary artery disease) ??? Psoriasiform dermatitis Resolved Hospital Problems Diagnosis Date Resolved No resolved problems to display. I have interviewed and examined the patient, reviewed the available data, and have discussed my findings, assessment and plan with the patient and the team on rounds today. I agree with Dr. Vizcaino's note as below which reflects our discussion. Heidy Elizabeth MD - 09/13/2017 1:50 PM EDT Inpatient Cardiology Progress Note Patient Name: Emani Eduardo Delong Date of Admission: 09/12/2017 ( Hospital Day 0 days ) Service: S1 ID: 72??year old woman??with history of hypothyroidism, CAD s/p DIANA to the RCA in 2009 and DIANA to the LAD (10/2015) Presenting in transfer from [facility] with concern for unstable angina. Active Problems: Unstable Angina 24 hr events: - patient admitted ROS: Denies CP, SOB, palpitations, PND, Orthopnea, dizziness/LH, LE swelling or pain, n/v, abd pain. Physical Exam: Temp: [36.3 ??C (97.3 ??F)-36.8 ??C (98.2 ??F)] Heart Rate: [49-55] Resp: [15-19] BP: (125-158)/(82-92) SpO2: [95 %-96 %] Heart Rate from SPO2: -- Intake/Output Summary (Last 24 hours) at 09/13/17 1350 Last data filed at 09/12/17 2348 Gross per 24 hour Intake 0 ml Output 400 ml Net -400 ml cumulative I/O's since admission: Patient Vitals for the past 168 hrs: Weight 09/12/17 2305 84.4 kg (186 lb 1.1 oz) Gen: in bed in NAD; alert, oriented, interactive HEENT: MMM CV: RRR, S1S2, systolic murmor Resp: CTAB Abd: nondistended, soft, NT, +BS Ext: WWP, 2+ DP pulses, edema Neuro: grossly intact Meds: Continuous Infusions: ??? heparin (porcine) 850 Units/hr (09/13/17 0746) Scheduled Meds: ??? aspirin 81 mg Oral Daily ??? atorvastatin 40 mg Oral Daily ??? levothyroxine 75 mcg Oral Daily ??? lisinopril 5 mg Oral Daily ??? PARoxetine 30 mg Oral QAM ??? tacrolimus Topical (Top) BID ??? metoprolol tartrate 12.5 mg Oral 2 times per day ??? sodium chloride 0.9 % 5 mL Intravenous BID ??? [START ON 09/14/2017] clopidogrel 75 mg Oral Daily PRN Meds:.nitroGLYcerin, heparin (porcine) AND heparin (porcine), sodium chloride 0.9 %, lidocaine, acetaminophen Labs Recent Labs 09/13/17 0329 WBC 8.3 HGB 14.0 HCT 41.9 PLATELET 244 Recent Labs 09/13/17 0329 NA 140 K 4.1 CL 101 CO2 24 BUN 25* CREATININE 0.95 Recent Labs 09/13/17 032 AST 16 ALT 23 ALKPHOS 65 BILITOT 0.4 BILIDIR 0.1 Recent Labs 09/13/17 032 CALCIUM 8.9 MAGNESIUM 0.97 PHOS 4.0 Recent Labs 09/13/17 032 INR 1.0 PT 10.6 PTT >160* Recent Labs 09/13/17 0955 09/13/17 032 CK 50 57 TROPONINT <0.01 <0.01 No results for input(s): POCGLU in the last 168 hours. ASSESSMENT: 72??year old woman??with history of hypothyroidism, CAD s/p DIANA to the RCA in 2009 and DIANA to the LAD (10/2015) Presenting in transfer from [facility] with concern for unstable angina. Patient has known history of CAD with history of 2 PCI's and is presenting with dyspnea atrest and new T wave inversions on EKG. Presentation is consistent with unstable angina, patient admitted for further management. ?? PLAN: # Unstable Angina S/p ASA and Plavix load - Telemetry - Echo - today - Heparin gtt - ASA 81 - Plavix 75 - atorvastatin 40 mg QD - metoprolol 12.5 mg Q 12 hrs - will consider cardiac catheterization if echo showing wall motion abnormalities or patient experiences recurrent chest pain ?? #Eczema - hold prednisone ?? Other: - DVT prophylaxis: On heparin - GI prophylaxis: protonix - Diet: NPO at midnight - Code Status: Full - Dispo:[facility] Heidy Elizabeth MD Internal Medicine, PGY-1 Cardiology S1 (Pager [phone]) Associated attestation - Raj Smith MD - 09/13/2017 11:32 PM EDT Cardiology Attending Addendum Active Hospital Problems Diagnosis ??? Unstable angina ??? CAD (coronary artery disease) ??? Psoriasiform dermatitis Resolved Hospital Problems Diagnosis Date Resolved No resolved problems to display. I have interviewed and examined the patient, reviewed the available data, and have discussed my findings, assessment and plan with the patient and the team on rounds today. I agree with Dr. Elizabeth's noteas below which reflects our discussion. documented in this encounter H&P Notes Rose Justice MD - 09/12/2017 11:19 PM EDT Images from the original note were not included. Cardiology Admission History and Physical Patient Name: July [facility] Service: Cardiology S1 # [id number] Team Responsible Attending: Dr Sarah MD PCP: Kristyn Whitehead MD PCP phone #: [phone] ID/Chief Complaint: Unstable Angina Unspecified Eczema HLD History of Present Illness: 72 year old woman with history of hypothyroidism, CAD s/p DIANA to the RCA in 2009 and DIANA to the LAD (2015), who presented to OSH with chest discomfort. She had been in her USOH up until last week, at which time she developed worsening HANDLEY. Patient woke up the AM of presentation at 630 AM with substernal chest pressure with associated dyspnea. She took a nitro with relief. She then took a walk with her friend and reports she had diaphoresis and dyspnea. She hasn't walked a lot recently due to sciatica so she attributed it to being out ofshape. She continued to be tired and dyspneic but had no further chest pain or pressure. Her clinical specialist medical device called her with some results regarding ongoing workup for some skin findings she previously had on her hands who instructed her to present to the ED after hearing about her symptoms. On review of symptoms she does report two episodes of sharp left shoulder pain in the past two weeks, one while sitting at rest in [place] She presented to [facility] where EKG showed new wave inversions in V1 and V2 She states presentation was similar to her past presentations for ACS She had recently started prednisone on 09/05 per rheumatology for an undefined eczema, which improvedwith the prednisone. There was some concern for drug rash and she has been off metoprolol. Pertinent Diagnostic Findings: Vitals: T- 36.4 HR-72 BP- 140/77 R- 19 SaO2- 94 on RA EKG: New TWI in V1 and V2 Troponin: neg (0.02) Review of Systems: GENERAL HEENT CV PULM x All negative x All negative All negative All negative Weight loss Headache x Chest Pain Non-productive cough Weight gain Vision change Palpitations Productive cough Fevers Sinus congestion Orthopnea Wheezing Chills Hoarseness LE edema Hemoptysis Night sweats Epistaxis PND Pleuritic pain Fatigue Syncope x SOB Claudication x HANDLEY MSK RENAL ENDO GI x All negative x All negative x All negative x All negative Arthralgias Frequency Heat intolerance Blood in stool Myalgias Urgency Cold intolerance Dysphagia Weakness Hematuria Polydipsia Odynophagia Stiffness Flank pain Polyphagia Abdominal discomfort Dysuria Cushingoid Constipation Foamy urine Diarrhea Discharge Nausea/Vomiting LYMPH SKIN NEURO PSYCH x All negative x All negative x All negative x All negative Swollen nodes Rash Seizures Depressed affect Tender nodes Ulcers Tremors Occupational stress Diffuse nodes Bruising Spasticity Anxiety Local nodes Tanned skin Focal weakness Insomnia Night sweats Telangiectasias Diplopia Paresthesias Dizziness Problem List/Past Medical History Patient Active Problem List Diagnosis ??? Psoriasiform dermatitis ??? CAD (coronary artery disease) ??? CIS - Hyperlipidemia ??? CIS - Anxiety ??? CIS - Chest pain ??? CIS - Depression ??? CIS - Hypothyroid Meds: No current facility-administered medications on file prior to encounter. Current Outpatient Prescriptions on File Prior to Encounter Medication Sig Dispense Refill ??? aspirin 81 mg Tablet, Delayed Release (E.C.) Take 81 mg by mouth daily. ??? cholecalciferol, Vitamin D3, (VITAMIN D-3) 2,000 unit Tablet Take by mouth daily. ??? cyanocobalamin, vitamin B-12, 1,000 mcg/mL Solution Inject as directed. Every 3 weeks ??? ciprofloxacin (CIPRO) 250 mg Tablet take 1 tablet by mouth twice a day 0 ??? flurbiprofen (ANSAID) 100 mg Tablet as needed. ??? pantoprazole (PROTONIX) 40 mg Tablet, Delayed Release (E.C.) daily. ??? UNABLE TO FIND Uses CBD oil and CBD salve ??? predniSONE (DELTASONE) 5 mg Tablet Take 4 tablets by mouth daily. 120 tablet 5 ??? tacrolimus (PROTOPIC) 0.1 % Ointment Apply to affected areas on hands, elbows, and feet twice daily on weekdays with occlusion at night (Patient not taking: Reported on 09/05/2017) 60 g 1 ??? levothyroxine (SYNTHROID) 75 mcg Tablet Take 75 mcg by mouth daily. ??? PARoxetine (PAXIL) 30 mg Tablet Take 30 mg by mouth every morning. ??? atorvastatin (LIPITOR) 40 mg Tablet Take 40 mg by mouth daily. ??? nitroGLYcerin (NITROSTAT) 0.4 mg SL tablet 0.4 MG = 1 Tablet(s), Sublingual, PRN chest pain ??? lisinopril (PRINIVIL;ZESTRIL) 5 mg tablet 5 MG = 1 Tablet(s), PO, Once daily ??? Calcium Carbonate-Vitamin D3 (CALCIUM 600 WITH VITAMIN D3) 600 mg(1,500mg) - 200 unit Tab Allergies: Allergies Allergen Reactions ??? Legumes Anaphylaxis ??? Lettuce Anaphylaxis ??? Soy Anaphylaxis ??? Sulfa (Sulfonamide Antibiotics) CIS - Hives ??? Tomato Anaphylaxis ??? Effexor [Venlafaxine] Other (See Comments) Lethargy Family History: Mother: None Father: Arrhythmia Siblings: None Social History: Tobacco: Quit in 1987 20 pack year history EtOH: 2 drinks 2 -3 times a week. Illicits: Denies Living Situation: Splits time between [facility] and [place]. Lives in a house in [place] while here with her . 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 Vitals: Last value Range last 24 hrs Temperature Temp: 36.8 ??C (98.2 ??F) Temp: [36.8 ??C (98.2 ??F)] Heart Rate Heart Rate: 51 Heart Rate: [51] Blood Pressure BP: 158/82 BP: (158)/(82) Respiratory Rate Resp: 16 Resp: [16] SpO2 SpO2: 95 % SpO2: [95 %] Examination: General: Pleasant, alert, appropriate,Sitting up in bed in NAD. Appears stated age. HEENT: EOMI, PERRL, anicteric sclera. Oropharynx clear w/o lesions. Moist mucous membranes Neck: Supple with normal ROM. No obvious LAD. JVD wnl Cardiac: Normal S1 and S2, Regular rate and rhythm; No murmrs/gallops/rubs. Respiratory: Nonlabored. Clear to auscultation bilaterally; No wheezes/ rhonci/ rales. Abd: + BS; soft, non-tender, non-distended, no obvious masses. Ext: WWP without le edema, cyanosis or clubbing. DPP 2+ bilaterally. Neuro: II-XII grossly intact. Alert and orientated, no-focal deficits, sensation intact to crude touch Skin: No rashs, no lesions, no petechiae Laboratory: CBC: No results for input(s): WBC, HGB, PLATELET in the last 7068 hours. Chemistry: No results for input(s): NA, K, CL, CO2, BUN, CREATININE, GLUCOSE in the last 7068 hours. No results for input(s): CALCIUM, MAGNESIUM, PHOS in the last 7068 hours. LFT's: No results for input(s): BILITOT, BILIDIR, ALBUMIN, ALKPHOS, ALT, AST in the last 7068 hours. Coags: No results for input(s): PT, INR, PTT, FIBRINOGEN, DDIMER in the last 168 hours. Invalid input(s): THROMBIN TIME Cardiac enzymes: Recent Labs 09/05/17 1605 TROPONINT <0.01 CK 154 Endocrine: No results for input(s): TSH, CORTISOL in the last 7068 hours. Invalid input(s): [id number] Heme: No results for input(s): LDH, HAPTOGLOBIN, URICACID in the last 168 hours. Microbiology: None Diagnostic Studies: Procedure(s): CARDIAC CATHETERIZATION ?? 11/03/2015 ?? * Two vessel coronary artery disease (LAD and RCA) ?? * Normal left ventricular function (EF-70%) ?? * Trace mitral regurgitation ?? * Successful stent insertion of the mid 2 LAD lesion ?? * IFR accross ostial RCA not significant. ?? * FFR accross mid 1 LAD not significant. ?? * FFR accross mid 2 LAD significant. ?? * Drug eluting stent (DIANA) implanted. ? EKG- T wave inversions in V1 and V2 CXR: Pending ASSESSMENT: 72 year old woman with history of hypothyroidism, CAD s/p DIANA to the RCA in 2009 and DIANA to the LAD ([id number]) Presenting in transfer from [facility] with concern for unstable angina. Patient has known history of CAD with history of 2 PCI's and is presenting with dyspnea at rest and new T wave inversions on EKG. Presentation is consistent with unstable angina, will admit for further management. PLAN: Admit to Cardiology S1 Team Pager # [phone] # Unstable Angina - Admit to - Telemetry - Trend cardiac enzymes - Check lytes, BUN, Cr, CBC - Maintain K > 4 and Mg > 1 - EKG on admission - Echocardiogram in AM - Risk factor evaluation with lipids, A1c, TSH - ASA 325 mg given, continue ASA 81 - Plavix 300 now, continue plavix 75 mg - Supplemental O2 - Heparin gtt - Statin: atorvastatin 40 mg QD - BB: metoprolol 12.5 mg Q 12 hrs, advance as tolerated - Chest pain protocol, prn NTG and EKG - SL nitro PRN for chest pressure; start nitro drip if pressure not relieved after SL nitro x 3 - NPO p MN, #Eczema Continue prednisone Other: - DVT prophylaxis: On heparin - GI prophylaxis: protonix - Diet: NPO at midnight - Code Status: Full - Dispo:Admit to Cardiology S1 #[id number] Rose Justice MD PGY2 Internal Medicine Cardiology S1 Pager: [phone] 09/12/2017 documented in this encounter Miscellaneous Notes Op Note - Cash Manjarrez MD - 09/15/2017 4:22 PM EDT [facility] [place] Patient Name: Emani Delong : [id number] MR#: [id number] Case Date: 09/15/2017 Surgeon: Surgeon(s) and Role: * Cash Manjarrez MD - Primary * Yang Márquez PA - Physician Switch Repairer Preoperative diagnosis: ?CAD Postoperative diagnosis: CAD present, no new obstructive lesions compared to 2016 Procedure(s) (LRB): CARDIAC CATHETERIZATION (N/A) Access: Radial provided good support for procedure. 6 Fr RRA with TR band in place, good hemostasis. The patient tolerated the procedures smoothly and was transferred from the cardiac catheterization lab to the next level of care in stable condition, without pain. No evident early complications. Results discussed with service commodity analyst Dr Smith, and with the patient and their family. Prior to initiation of the procedure, the patient's frailty score was determined to be: vulnerable (see definitions below). A time-out was conducted prior to the start of the procedure to verify the correct patient and procedure, procedure location, and all relevant critical information. Full report to follow. CASH MANJARREZ MD Definitions from [place] [employer] of Health and Aging Clinical Frailty Scale: 1: VERY FIT: energetic, exercising regularly 2: WELL: no active disease symptoms, exercising occasionally or seasonally 3: MANAGING WELL: well-controlled medical problems, no exercise more than routine walking 4: VULNERABLE: symptoms limit activities, though not dependent on others for daily help. Often complain for being slowed up or tired 5: MILDLY FRAIL: more evidently impaired, needing help with high order ADLs such as finances, transportation, heavy housework, medications, walking outside, meal preparation 6: MODERATELY FRAIL: requiring help with all outside activities and with minor cancer researcher. Mayneed help with bathing and dressing. 7: SEVERELY FRAIL: completely dependent for personal care, but stable and not at high risk of dying within 6 months 8: VERY SEVERELY FRAIL: completely dependent, approaching end of life. Not likely to recover from even minor added illness 9: TERMINALLY ILL: Life expectancy of less than 6 months, even if not otherwise frail Initial Assessments - Julia Espinal RN - 09/15/2017 3:58 PM EDT Office of Care Management Initial Assessment Carrier Washer JULIA ESPINAL RN,MA,ACM reviewed record and discussed patient with Care Team. Source of Information: team,eDH, interview w ; pt was sound asleep both times I went to see her pre procedure Introduced self/reviewed role; services accepted. Reason for Hospitalization: No past medical history on file. Hospitalizations Within the Past 30 Days: no; other than [place] [facility] [place] [facility] Anticipated Length Of Stay (If known): 2-3 days; May d/c today if cardiac cath negative Current Decision-Making Capacity: intact Advance Care Planning: none in eDH; Discussed with and provided advance directive booklet and forms, he will discuss with pt at a later time. Current Coping/Education/Information Needs: relaxed and waiting for pt to return from cardiac catheterization Current Functional Ability: has been independently transferring, ambulating Functional Status Prior to Admission: indep Home Environment: 2 level w 1/2 bath on first floor; full bath- step in tub on 2nd floor w bedrooms. Social & Family Supports/Community Resources: , dtr in [place], sister in law Behavioral Health History: none noted Substance Use/Abuse: none noted Other Pertinent/Service Specific Information: says she has been retired for 10 yrs. Health/Prescription Coverage: Primary Insurance: MEDICARE Secondary Insurance: [employer] Prescription Coverage: says yes Medicare D Preferred Pharmacy: not discussed Other: NA Primary Care Provider: Kristyn Whitehead MD [phone] Patient/Caregiver Goals of Treatment: per have her home again Potential Needs for Transition of Care: Rehab/SNF: NA Home Health: discussed w availability of home RN services and he declines at this time DME: none Dialysis: na Community Resources: NA Transportation: if d/c this freddy will take; if tomorrow pt's sister in law will roller picker Other: none Anticipated Barriers to Discharge/Special Considerations: none Assessment: Pt w support, and means for medication coverage. Anticpate home without services either this freddy or in AM pending cardiac cath outcome. Plan: A member of the Care Management team will continue to monitor progress, follow for continuity of care and assist with transition of care planning. Carrier Washer JULIA ESPINAL RN,MA,M for Pager: [phone] Plan of Care - Kat Bobo RN - 09/14/2017 4:41 PM EDT Problem: Patient Care Overview Goal: Plan of Care Review Outcome: Ongoing (Interventions Implemented as Appropriate) 09/14/17 0505 09/14/17 0820 Plan of Care Review Progress no change -- Coping/Psychosocial Plan Of Care Reviewed With -- patient OUTCOME EVALUATION NOTE: OUTCOME SUMMARY: Emani is A&Ox4. She has been experiencing intermittent CP, SOB and fatigue twice today after eachmeal. EKGx2 performed. Team aware. Currently NPO. Heparin gtt maintained. She ambulated around unit with minimal symptoms of fatigue. Pt is on RA. Tele SR/SB, HR 40s--80s PLAN MOVING FORWARD: Cath INDIVIDUALIZED FALL PREVENTION INTERVENTIONS: Patient-specific fall risk factors per assessment: [current deficits]: Generalized weakness, Tele wires, IV pole Assistance [level of assistance required for transfers and ambulation]: SBA Supervision [direct monitoring required during toileting and ADLs]: Eyes on Surveillance [continuous indirect monitoring]: Tele, purposeful rounding Patient-specific fall prevention interventions for sensory deficits provided, if applicable: [X] Yes CPG GOAL OUTCOME EVALUATION: Ongoing Goal: Fall Prevention-Safe Patient Handling Outcome: Ongoing (Interventions Implemented as Appropriate) 09/13/17 1935 09/14/17 0820 Daily Care Interventions Self-Care Promotion independence encouraged;BADL personal objects within reach;BADL personal routines maintained -- Clemente Fall Risk History of Falling -- 0 Secondary Diagnosis -- 15 Ambulatory Aids -- 0 Intravenous Therapy/Heparin/Saline Lock -- 20 Gait/Transferring -- 0 Mental Status -- 0 Score -- 35 OTHER Clemente Fall Risk -- Med Restraint Interventions Safety Promotion/Fall Prevention -- activity supervised;nonskid shoes/slippers when out of bed;safety round/check completed;fall prevention program maintained Positioning Body Position -- independent Activity Activity Type -- activity adjusted per tolerance Activity Assistance Provided -- assistance, stand-by Assistive Device Utilized -- none Goal: Infection Control Outcome: Ongoing (Interventions Implemented as Appropriate) 09/14/17 0820 Safety Interventions Isolation Precautions standard precautions maintained Infection Prevention rest/sleep promoted Coping Strategies Supportive Measures active listening utilized;verbalization of feelings encouraged Plan of Care - Susana Bradley RN - 09/14/2017 5:16 AM EDT Problem: Patient Care Overview Goal: Plan of Care Review Outcome: Ongoing (Interventions Implemented as Appropriate) 09/13/17193409/14/17 0505 Plan of Care Review Progress -- no change Coping/Psychosocial Plan Of Care Reviewed With patient -- OUTCOME EVALUATION NOTE: OUTCOME SUMMARY: Pt a/o, vss on ra, denies pain and sob. Tele showing sb-sr, 38-60s, pt asymptomatic sys bp 105-134. Hep gtt infusing per protocol. No other complaint at this time. PLAN MOVING FORWARD: Cath, hep gtt INDIVIDUALIZED FALL PREVENTION INTERVENTIONS: Patient-specific fall risk factors per assessment: [current deficits]: Generalized weakness, IV, lines, Assistance [level of assistance required for transfers and ambulation]: SBA Supervision [direct monitoring required during toileting and ADLs]: Independent, rings aprop Surveillance [continuous indirect monitoring]: Tele Patient-specific fall prevention interventions for sensory deficits provided, if applicable: [X] N/A CPG GOAL OUTCOME EVALUATION: ongoing Goal: Fall Prevention-Safe Patient Handling Outcome: Ongoing (Interventions Implemented as Appropriate) 09/13/17193409/14/17 0200 Daily Care Interventions Self-Care Promotion independence encouraged;BADL personal objects within reach;BADL personal routines maintained -- Clemente Fall Risk History of Falling 0 -- Secondary Diagnosis 15 -- Ambulatory Aids 0 -- Intravenous Therapy/Heparin/Saline Lock 20 -- Gait/Transferring 0 -- Mental Status 0 -- Score 35 -- OTHER Clemente Fall Risk Med -- Restraint Interventions Safety Promotion/Fall Prevention -- safety round/check completed Positioning Body Position supine, head elevated -- Activity Activity Type activity adjusted per tolerance -- Activity Assistance Provided assistance, stand-by -- Assistive Device Utilized none -- Goal: Infection Control Outcome: Ongoing (Interventions Implemented as Appropriate) 09/13/17 1935 Safety Interventions Isolation Precautions standard precautions maintained Infection Prevention environmental surveillance performed;rest/sleep promoted Coping Strategies Supportive Measures active listening utilized;decision-making supported;positive reinforcement provided Plan of Care - Kat Bobo RN - 09/13/2017 6:01 PM EDT Problem: Patient Care Overview Goal: Plan of Care Review Outcome: Ongoing (Interventions Implemented as Appropriate) 09/13/17 0213 09/13/17 0755 Plan of Care Review Progress no change -- Coping/Psychosocial Plan Of Care Reviewed With -- patient OUTCOME EVALUATION NOTE: OUTCOME SUMMARY: Emani had uneventful day, she is A&O. Denies any CP or SOB. She is on RA, heparin gtt maintained.Tele SR/SB with HR 40s-70s PLAN MOVING FORWARD: Cath INDIVIDUALIZED FALL PREVENTION INTERVENTIONS: Patient-specific fall risk factors per assessment: [current deficits]: Generalized weakness Assistance [level of assistance required for transfers and ambulation]: SBA Supervision [direct monitoring required during toileting and ADLs]: Eyes on Surveillance [continuous indirect monitoring]: Tele, purposeful rounding Patient-specific fall prevention interventions for sensory deficits provided, if applicable: [X] Yes CPG GOAL OUTCOME EVALUATION: Ongoing Goal: Fall Prevention-Safe Patient Handling Outcome: Ongoing (Interventions Implemented as Appropriate) 09/13/17 0755 09/13/17 1752 Daily Care Interventions Self-Care Promotion -- independence encouraged Clemente Fall Risk History of Falling 0 -- Secondary Diagnosis 15 -- Ambulatory Aids 0 -- Intravenous Therapy/Heparin/Saline Lock 20 -- Gait/Transferring 10 -- Mental Status 0 -- Score 45 -- OTHER Clemente Fall Risk High -- Restraint Interventions Safety Promotion/Fall Prevention activity supervised -- Positioning Body Position independent -- Activity Activity Type activity adjusted per tolerance -- Activity Assistance Provided assistance, stand-by -- Assistive Device Utilized none -- Goal: Infection Control Outcome: Ongoing (Interventions Implemented as Appropriate) 09/13/17 0755 Safety Interventions Isolation Precautions standard precautions maintained Infection Prevention rest/sleep promoted Coping Strategies Supportive Measures active listening utilized;verbalization of feelings encouraged Plan of Care - Thea Juan RN - 09/13/2017 2:15 AM EDT Problem: Patient Care Overview Goal: Plan of Care Review Outcome: Ongoing (Interventions Implemented as Appropriate) 09/12/17 2305 09/13/17 0213 Plan of Care Review Progress -- no change Coping/Psychosocial Plan Of Care Reviewed With patient -- OUTCOME EVALUATION NOTE: OUTCOME SUMMARY: July arrived from [facility] via EMS CP free. No report of CP or SOB. SB on tele. Heparin gtt initiated. Midnight metop not given d/t low HR, team aware. NPO at 0000. Slept between care. PLAN MOVING FORWARD: supervisor laboratory INDIVIDUALIZED FALL PREVENTION INTERVENTIONS: Patient-specific fall risk factors per assessment: [current deficits]: Tubes/ cables, unfamiliar environment Assistance [level of assistance required for transfers and ambulation]: SBA Supervision [direct monitoring required during toileting and ADLs]: Eyes on Surveillance [continuous indirect monitoring]: Tele, hourly rounding CPG GOAL OUTCOME EVALUATION: Ongoing documented in this encounter Plan of Treatment Upcoming Encounters Date Type Specialty Care Team Description 10/31/2021 Office Visit Rheumatology Bert Loera MD [facility] RHEUMATOLOGY [place], [place] [address] (Wo rk) documented as of this encounter Procedures Procedure Name Priority Date/Time Associated Diagnosis Comme nts BMP W/FASTING GLUCOSE Routine 09/16/2017 3:46 Res ults for this AM EDT procedure are i n the results section. HEMOGRAM Routine 09/16/2017 3:46 Results for this AM EDT procedure are i n the results section. DIFFERENTIAL, AUTOMATED Routine 09/16/2017 3:46 R esults for this AM EDT procedure are i n the results section. PROTHROMBIN TIME Routine 09/16/2017 3:46 Results for this AM EDT procedure are i n the results section. CBC (WITH DIFF) Routine 09/16/2017 3:46 AM EDT DIE BARBER SCAN 09/16/2017 12:00 Res ults for this AM EDT procedure are i n the results section. CARDIAC CATHETERIZATION Routine 09/15/2017 4:00 R esults for this PM EDT procedure are i n the results section. HEPARIN STAT 09/15/2017 3:51 Results for this (UNFRACTIONATED) LEVEL AM EDT proce dure are in the results section. BMP W/FASTING GLUCOSE Routine 09/15/2017 3:51 Res ults for this AM EDT procedure are i n the results section. HEMOGRAM Routine 09/15/2017 3:51 Results for this AM EDT procedure are i n the results section. DIFFERENTIAL, AUTOMATED Routine 09/15/2017 3:51 R esults for this AM EDT procedure are i n the results section. PROTHROMBIN TIME Routine 09/15/2017 3:51 Results for this AM EDT procedure are i n the results section. CBC (WITH DIFF) Routine 09/15/2017 3:51 AM EDT CARDIAC CATH SCAN 09/15/2017 12:00 Result s for this AM EDT procedure are i n the results section. EKG 12-LEAD STAT 09/14/2017 2:55 Coronary artery Results f or this PM EDT disease, angina procedure ar e in presence the results unspecified, section. unspecified vessel or lesion type, unspecified whether chilkoot or transplanted heart CARDIAC ENZYMES STAT 09/14/2017 8:44 Results f or this ([facility]) AM EDT procedure are i n the results section. EKG 12-LEAD STAT 09/14/2017 8:06 Coronary artery Results f or this AM EDT disease, angina procedure ar e in presence the results unspecified, section. unspecified vessel or lesion type, unspecified whether chilkoot or transplanted heart HEPARIN STAT 09/14/2017 5:36 Results for this (UNFRACTIONATED) LEVEL AM EDT proce dure are in the results section. BMP W/FASTING GLUCOSE STAT 09/14/2017 5:36 Res ults for this AM EDT procedure are i n the results section. HEMOGRAM Routine 09/14/2017 5:36 Results for this AM EDT procedure are i n the results section. DIFFERENTIAL, AUTOMATED Routine 09/14/2017 5:36 R esults for this AM EDT procedure are i n the results section. PROTHROMBIN TIME STAT 09/14/2017 5:36 Results for this AM EDT procedure are i n the results section. CBC (WITH DIFF) Routine 09/14/2017 5:36 AM EDT LDL CHOLESTEROL, DIRECT Routine 09/14/2017 5:36 R esults for this AM EDT procedure are i n the results section. HEMOGLOBIN A1C Routine 09/14/2017 5:36 Results fo r this AM EDT procedure are i n the results section. GLUCOSE, FASTING Routine 09/14/2017 5:36 Results for this AM EDT procedure are i n the results section. LIPID PANEL (REFLEX Routine 09/14/2017 5:36 Resul ts for this DIRECT LDL) AM EDT procedure are i n the results section. HEPARIN STAT 09/13/2017 8:28 Results for this (UNFRACTIONATED) LEVEL PM EDT proce dure are in the results section. CARDIAC ENZYMES Routine 09/13/2017 3:52 Results f or this ([facility] PM EDT procedure are i n the results section. HEPARIN STAT 09/13/2017 2:10 Results for this (UNFRACTIONATED) LEVEL PM EDT proce dure are in the results section. ECHOCARDIOGRAM COMPLETE Routine 09/13/2017 11:28 Coronary frida ry Results for this W CONTRAST AM EDT disease, angina procedure ar e in presence the results unspecified, section. unspecified vessel or lesion type, unspecified whether chilkoot or transplanted heart CARDIAC ENZYMES Routine 09/13/2017 9:55 Results f or this ([facility]) AM EDT procedure are i n the results section. HEPARIN STAT 09/13/2017 5:37 Results for this (UNFRACTIONATED) LEVEL AM EDT proce dure are in the results section. HEPARIN STAT 09/13/2017 3:29 Results for this (UNFRACTIONATED) LEVEL AM EDT proce dure are in the results section. HEMOGRAM Routine 09/13/2017 3:29 Results for this AM EDT procedure are i n the results section. DIFFERENTIAL, AUTOMATED Routine 09/13/2017 3:29 R esults for this AM EDT procedure are i n the results section. CARDIAC ENZYMES Routine 09/13/2017 3:29 Results f or this ([facility]) AM EDT procedure are i n the results section. APTT Routine 09/13/2017 3:29 Results for this AM EDT procedure are i n the results section. PROTHROMBIN TIME Routine 09/13/2017 3:29 Results for this AM EDT procedure are i n the results section. CBC (WITH DIFF) Routine 09/13/2017 3:29 AM EDT TSH Routine 09/13/2017 3:29 Results for this AM EDT procedure are i n the results section. PHOSPHORUS Routine 09/13/2017 3:29 Results for this AM EDT procedure are i n the results section. PRO-BRAIN NATRIURETIC Routine 09/13/2017 3:29 Res ults for this PEPTIDE AM EDT procedure are i n the results section. MAGNESIUM Routine 09/13/2017 3:29 Results for this AM EDT procedure are i n the results section. HEPATIC FUNCTION PANEL Routine 09/13/2017 3:29 Re sults for this AM EDT procedure are i n the results section. BASIC METABOLIC PANEL Routine 09/13/2017 3:29 Res ults for this (NON-FASTING) AM EDT procedure are in the results section. documented in this encounter Results Differential, Automated (09/16/2017 3:46 AM EDT) P athologist Signature Neutrophils % 58.7 % [facility] Neutr Abs (ANC) 4.63 1.70 - [facility] 6.10 [facility] x10(3)/[facility] LABORATORY Lymphocytes % 31.4 % [facility] Lymphocytes Abs 2.5 0.9 - 3.2 [facility] x10(3)/[facility] LABORATORY Monocytes % 6.3 % [facility] Monocyte Abs 0.5 0.3 - 0.9 [facility] x10(3)/[facility] LABORATORY Eosinophils % 2.8 % [facility] Eosinophils Abs 0.2 0.0 - 0.4 [facility] x10(3)/[facility] LABORATORY Basophils % 0.4 % [facility] Basophils Abs 0.0 0.0 - 0.1 [facility] x10(3)/[facility] LABORATORY Immature Gran % 0.40 % [facility] Comment: Immature granulocytes(IG's)percentage an d absolute count will include metamyelocytes, myelocytes, and promyelo cytes. Blood smears from CBCs yielding IG's will be scanned manually for concor dance. If this scan disagrees with the automated IG or if promyelocytes are not ed, a manual differential will be performed. Anuja Gran Abs 0.03 0.00 - 0.04 x10(3)/[facility] Specimen Anatomical Collection Method Collection Time Receive d Time (Source) Location / / Volume Laterality Blood specimen 09/16/2017 3:46 AM 018 3:59 (specimen) EDT AM EDT Resulting Agency Comment Spec In Lab Rose Justice MD HEMATOLOGY ORDERABLES Performing Organization Address City/State/[place] [address] (ABNORMAL) Hemogram (09/16/2017 3:46 AM EDT) Analysis Performed At Patho logist Time Signature WBC 7.9 4.0 - 9.5 [facility] x10(3)/[facility] LABORATORY RBC 4.76 4.00 - [facility] 5.21 [facility] x10(6)/[facility]ATORY Hemoglobin 15.3 11.7 - [facility] g[facility]dL [facility] Hematocrit 45.4 35.7 - [facility] % [facility] MCV 95.4 (H) 82.6 - [facility] 94.4 [facility] MCH 32.1 (H) 27.1 - [facility] 32.0 pg [facility] MCHC 33.7 31.7 - [facility] 35.[facility] gm/dL [facility] Platelets 245 145 - 357 [facility] LAB[facility] RDWSD 44.7 37.0 - [facility] 46.0 [facility] RDWCV 12.7 11.5 - [facility] 14.1 % [facility] MPV 9.0 7.6 - 12.9 [facility] LABORATORY nRBC % Auto 0.0 % [facility] nRBC Abs Auto 0.000 0.000 - [facility] 0.000 [facility] x10(3)/[facility] LABORATORY Specimen Anatomical Collection Method Collection Time Receive d Time (Source) Location / / Volume Laterality Blood specimen 09/16/2017 3:46 AM 018 3:59 (specimen) EDT AM EDT Resulting Agency Comment Spec In Lab Rose Justcie MD HEMATOLOGY ORDERABLES Performing Organization Address City/State/[place] [address] (ABNORMAL) BMP w/fasting Glucose (09/16/2017 3:46 AM EDT) athologist Signature Glucose 98 65 - 99 [facility] Fasting mg/dL [facility] Comment: ?Fasting* Glucose Interpretive C riteria Normal ?65-99 mg/dL Impaired Fasting glucose ?100-125 mg/dL Consistent with Diabetes Mellitus ? >or= 126 mg/dL *Fasting is defined as no caloric intake for at least 8 hours In the absence of unequivocal hypergly cemia a plasma glucose value of >or= 126 mg/dL should be repeated on a subseq uent day. Diagnosis and Classification of Diabetes Mellitus, Position Statement from the [place] [employer]. ??Diabete s Care, Volume 33, Supplement 1, Feb 2009 BUN 28 (H) 8 - 18 mg/dL [facility] Creatinine 1.17 0.70 - 1.20 mg/dL [facility] Sodium 139 135 - 145 mmol/L [facility] Potassium 4.6 3.5 - 5.0 mmol/L [facility] Comment: Please note: ??Patients with WBC >100,00 0 may have falsely elevated Potassium levels. ??For accurate Potassium quantif ication in these patients send serum separator tube (gold top) for subsequent determinations. ??Contact the Clinical Chemistry Laboratory if there are any qu estions. Chloride 102 98 - 107 mmol/L [facility] CO2 25 22 - 31 mmol/L [facility] Anion Gap 12 5 - 15 mmol/L [facility] Calcium 9.1 8.5 - 10.5 mg/dL [facility] Estimated GFR 46 (L) >=60 mL/min/1.73 m?? [facility] Comment: The eGFR was calculated using the CKD-EP I equation. As with all creatinine based estimates of kidney function, eGFR values calculated with the CKD-EPI equation are not accurate in patients wi th acute kidney failure, extremes of body mass or the acutely ill. http://Partigi/Hotelscannkdep http://Partigi/Hotelscannkf eGFR 53 (L) >=60 mL/min/1.73 m?? [facility] Comment: The eGFR was calculated using the CKD-EP I equation. As with all creatinine based estimates of kidney function, eGFR values calculated with the CKD-EPI equation are not accurate in patients wi th acute kidney failure, extremes of body mass or the acutely ill. http://Partigi/Hotelscannkdep http://Partigi/[facility] Specimen Anatomical Collection Method Collection Time Receive d Time (Source) Location / / Volume Laterality Blood specimen 09/16/2017 3:46 AM 018 3:59 (specimen) EDT AM EDT Resulting Agency Comment Spec In Lab Raj Smith MD CHEMISTRY ORDERABLES Performing Organization Address City/State/[place] [address] Prothrombin Time (09/16/2017 3:46 AM EDT) P athologist Signature PT 9.8 9.4 - 12.5 [facility] LABORATORY INR 0.9 [facility] Comment: An INR <2.0 indicates adequate procoagul ant activity for hemostasis in most patients without underlying bleeding dis orders, though the INR may not adequately reflect hemostatic capacity i n patients with liver disease and synthetic impairment. The recommended ta rget INR range for therapeutic anticoagulation is 2.0 ? 3.0 for most applications, though lower and higher ranges may be appropriate depending on c linical circumstances. Specimen Anatomical Collection Method Collection Time Receive d Time (Source) Location / / Volume Laterality Blood specimen 09/16/2017 3:46 AM 018 3:59 (specimen) EDT AM EDT Resulting Agency Comment Spec In Lab Raj Smith MD HEMATOLOGY ORDERABLES Performing Organization Address City/State/ZIP Code Phon e Number [facility] [place] [id number] SCAN DOC: DIE BARBER (09/16/2017 12:00 AM EDT) Narrative 09/16/2017 12:00 AM EDT This result has an attachment that is no t available. Ordered by an unspecified provider. Scanning Provider MEDIA MGR SCAN EXT ORDR/RSLT CARDIAC CATHETERIZATION (09/15/2017 4:00 PM EDT) Specimen (Source) Anatomical Location Collection Method / Collectio n Time Received Time / Laterality Volume Narrative CARDIOMAC SYSTEM - 09/18/2017 7:24 PM ED T ?[facility] ? Cardiac Cathete rization/Intervention Report ? Patient Name: Emani Delong Katlyn ? Procedure Date: 09/15/2017 ? A #: [id number] ? Primary Physician: Cash Manjarrez ? Case #: [id number] ? File Name: [id number] ? Catheterization Order Number: [id number] ? [facility] ? Final Report [place], [place] ? Patient Name: ? Emani C. Arie jacobser ? ID#: ?[id number] ? : ?1945 ? Procedure Date: ? September 15, 2017 ?Case #: ? [id number] ? Room: ? 2 ? Case Physician: ? Cash villavicencio M.D. ?Start: ?14:56 ?Fellow: ? Zuleika todd M.D. ? Admission: ??09/12/2017 ? Referring ? Kristyn V Vernon Franks.D. ? Physicians: ?Paulette T Bowles ? Procedures: ?* Coronary Angiography ?* Left Heart Catheterization ? History ?Emani CJose L Delong is a 72 year old woman. She has hypertension. The ?patient has a history of smokin g. She has hypercholesterolemia managed ?with lipid therapy. The patient has unstable angina, negative troponin, a ?history of chest pain and a jerry or history of coronary artery disease. She ?had a remote coronary intervent ion procedure. The patient has a history ?of dyspnea with NYHA functional class II. She also has a history of an ?abnormal EKG. Prior to the init iation of this procedure, the patient was ?designated as ASA Class III. ? Patient Status at Catheterization: ?The patient presented with: uns table angina (w/i 60 days). [place] ?Cardiovascular Society angina c lass was IV. This patient was on beta ?blockers prior to the procedure . No stress or imaging studies were ?performed prior to this procedu re. The status of the diagnostic procedure ?was Elective. ? Technique: ?A 6 SLFr sheath was inserted in the right radial artery utilizing the ?Seldinger technique. The left c oronary artery was injected utilizing a ?5Fr TIG 4.0 catheter. A 5Fr TIG 4.0 catheter was used to inject the right ?coronary artery. The left ventr icle was injected utilizing a 6Fr AL-1 ?catheter. A 6Fr Double lumen pi gtail catheter was used to inject the left ?ventricle. 5,500 units of hepar in were administered. Intracoronary ?nitroglycerin was given during this case. A total of 100cc of Omnipaque ?were opened, 60cc of Omnipaque were administered and 40cc of Omnipaque ?were wasted. Radiation: Fluoro time was 12.9 minutes, dose area product ?was 51,428 mGYcm2 and air kerma was 851 mGY. ?The patient received the follow ing medications prior to and during the ?procedure: Aspirin (any), Clopi dogrel and Unfractionated Heparin (any). ? Hemodynamics: ?Left Heart Pressures ? Resting: ? Syst D iast ? EDP ?a ?v ? m ?Ao 135 ?? 60 ?89 ?LV 137 ? 12 ?Comments: ??Opening AO 110/67 ( 85). ? Stenotic Valve Data: ?Aortic Valve ?Mean Gradient - 7 ? Coronary Angiography: ?Dominance: Right ?Left Main ? The left main was normal , free of disease. ?Left Anterior Descending ? There were multiple disc rete 20% stenoses of the proximal segment of ? the left anterior descen ding artery (LAD). ??The LAD was large. ??The ? mid 1 segment of the LAD had a multiple discrete 30% stenoses. ? There also was a 20% sin gle discrete stenosis of the mid 2 segment ? of the LAD. ??The previo usly placed stent is patent. ?Left Circumflex ? There was a 30% single d iscrete stenosis of the proximal segment of ? the left circumflex frida ry (LCX). ??The LCX was large. ?Right Coronary Artery ? There was a 20% single d iscrete stenosis of the ostial segment of ? the right coronary arter y (RCA). ??The RCA was large. ??The proximal ? segment of the RCA had a n eccentric single discrete 30% stenosis. ? The previously placed st ent is patent. There also was a 30% ? concentric single discre te stenosis of the mid segment of the RCA. ? Vascular Access: ?Vascular Access Management: ? Mechanical Compression o f the right radial artery access site was ? performed. ? Conclusions: ?* Nonobstructive coronary arter y disease ? Complications/Events: ?The patient had no complication s during these procedures. ? Recommendations: ?Based upon the results of this procedure, it was recommended that medical ?therapy be considered. ? Comments: ?Preoperative diagnosis: ?CAD ?Postoperative diagnosis: CAD pr esent, no new obstructive lesions compared ?to 2016 ?Procedure(s) (LRB): ?CARDIAC CATHETERIZATION (N/A) ? Access: ?Radial provided good support fo r procedure. ?6 Fr RRA with TR band in place, good hemostasis. ?The patient tolerated the proce dures smoothly and was transferred from ?the cardiac catheterization lab to the next level of care in stable ?condition, without pain. ??No e vident early complications. ?Results discussed with service commodity analyst Dr Smith, and with the ?patient and their family. ?Prior to initiation of the proc edure, the patient's frailty score was ?determined to be: vulnerable (s ee definitions below). ?A time-out was conducted prior to the start of the procedure to verify ?the correct patient and procedu re, procedure location, and all relevant ?critical information. ?The attending physician was presmelina t for the entire procedure. ?Dr. Cash Manjarrez M.D. was present during the moderate sedation ?intraservice time as documented by the sedation nurse. ??Case time = 00:57. ?Dr. Cash Manjarrez M.D. perf ormed the coronary angiography and left ?heart catheterization. ? Cash J Coylewright, ? M.D. ? Electronically Signed by: Cash J Coylew right, M.D. ? Report Finalized: 09/18/2017 ??19:17 ? Procedure Note Coylewright, Cash J, MD - 09/18/2017For matting of this note might be different from the original. [facility] Cardiac Catheterization/Intervention Re port Patient Name: Emani Delong Procedure Date: 09/15/2017 A #: [id number] Primary Physician: Cash Manjarrez Case #: [id number] File Name: [id number] Catheterization Order Number: [id number] [facility] [employer] [facility] Final Report [place], [place] Patient Name: Emani Delong ID#: [id number] : 1945 Procedure Date: September 15, 2017 Case #: [id number] Room: 2 Case Physician: Addison May Start: 14:56 Fellow: Zuelika Manjarrez M.D. Admissio n: 09/12/2017 Referring Kristyn Whitehead M.D. Physicians: Paulette Brar Bowles Procedures: * Coronary Angiography * Left Heart Catheterization History Emani Delong is a 72 year old wom an. She has hypertension. The patient has a history of smoking. She h as hypercholesterolemia managed with lipid therapy. The patient has uns table angina, negative troponin, a history of chest pain and a prior histo ry of coronary artery disease. She had a remote [facility] proc [facility]. The patient has a history of dyspnea with NYHA functional class I I. She also has a history of an abnormal EKG. Prior to the initiation o f this procedure, the patient was designated as ASA Class III. Patient Status at Catheterization: The patient presented with: unstable an kayden (w/i 60 days). [place] [employer] Society angina class was IV. This patient was on beta blockers prior to the procedure. No str ess or imaging studies were performed prior to this procedure. The status of the diagnostic procedure was Elective. Technique: A 6 SLFr sheath was inserted in the rig ht radial artery utilizing the Seldinger technique. The left coronary artery was injected utilizing a 5Fr TIG 4.0 catheter. A 5Fr TIG 4.0 cat heter was used to inject the right coronary artery. The left ventricle was injected utilizing a 6Fr AL-1 catheter. A 6Fr Double lumen pigtail ca theter was used to inject the left ventricle. 5,500 units of heparin were administered. Intracoronary nitroglycerin was given during this suman e. A total of 100cc of Omnipaque were opened, 60cc of Omnipaque were adm inistered and 40cc of Omnipaque were wasted. Radiation: Fluoro time was 12.9 minutes, dose area product was 51,428 mGYcm2 and air kerma was 851 mGY. The patient received the following medi cations prior to and during the procedure: Aspirin (any), Clopidogrel a nd Unfractionated Heparin (any). Hemodynamics: Left Heart Pressures Resting: Syst Diast EDP a v m Ao 135 60 89 LV 137 12 Comments: Opening AO 110/67 (85). Stenotic Valve Data: Aortic Valve Mean Gradient - 7 Coronary Angiography: Dominance: Right Left Main The left main was normal, free of disea se. Left Anterior Descending There were multiple discrete 20% stenos es of the proximal segment of the left anterior descending artery (LA D). The LAD was large. The mid 1 segment of the LAD had a multiple discrete 30% stenoses. There also was a 20% single discrete st enosis of the mid 2 segment of the LAD. The previously placed stent is patent. Left Circumflex There was a 30% single discrete stenosi s of the proximal segment of the left circumflex artery (LCX). The L CX was large. Right Coronary Artery There was a 20% single discrete stenosi s of the ostial segment of the right coronary artery (RCA). The RC A was large. The proximal segment of the RCA had an eccentric sin gle discrete 30% stenosis. The previously placed stent is patent. There also was a 30% concentric single discrete stenosis of the mid segment of the RCA. Vascular Access: Vascular Access Management: Mechanical Compression of the right rad ial artery access site was performed. Conclusions: * Nonobstructive coronary artery diseas e Complications/Events: The patient had no complications during these procedures. Recommendations: Based upon the results of this procedur e, it was recommended that medical therapy be considered. Comments: Preoperative diagnosis: ?CAD Postoperative diagnosis: CAD present, n o new obstructive lesions compared to 2016 Procedure(s) (LRB): CARDIAC CATHETERIZATION (N/A) Access: Radial provided good support for proced ure. 6 Fr RRA with TR band in place, good he mostasis. The patient tolerated the procedures sm oothly and was transferred from the cardiac catheterization lab to the next level of care in stable condition, without pain. No evident ear ly complications. Results discussed with service cardiolo gist Dr Smith, and with the patient and their family. Prior to initiation of the procedure, t he patient's frailty score was determined to be: vulnerable (see defin itions below). A time-out was conducted prior to the s tart of the procedure to verify the correct patient and procedure, proc edure location, and all relevant critical information. The attending physician was present for the entire procedure. Dr. Cash Manjarrez M.D. was prese nt during the moderate sedation intraservice time as documented by the sedation nurse. Case time = 00:57. Dr. Cash Manjarrez M.D. performed the coronary angiography and left heart catheterization. Cash Manjarrez M.D. Electronically Signed by: Cash amor M.D. Report Finalized: 09/18/2017 19:17 Cash Manjarrez MD CARDIAC CATH ORDERABLES Performing Organization Address City/State/ZIP Code Phon e Number CARDIOMAC SYSTEM Heparin (unfractionated) Level (09/15/2017 3:51 AM EDT) P athologist Signature Heparin UFH 0.44 IU/mL [facility] LABORATORY Comment: Guidelines for therapeutic unfractionate d heparin levels are summarized below. Heparin (Anti-Xa) levels should be deter mined in a plasma sample that has been drawn 6 hours after a dose change i.e., steady-state has been reached. DRUG ?Dos ing Schedule ? Target Peak Steady-State ?Heparin (Anti-Xa) Levels (Units/mL) Unfractionated ?Continuous inf usion ?0.3-0.7 Heparin ?0.3-0.6 fo r some neurology indications Specimen Anatomical Collection Method Collection Time Receive d Time (Source) Location / / Volume Laterality Blood specimen 09/15/2017 3:51 AM 018 4:05 (specimen) EDT AM EDT Resulting Agency Comment Spec In Lab Raj Smith MD HEMATOLOGY ORDERABLES Performing Organization Address City/State/[place] [address] (ABNORMAL) Differential, Automated (09/15/2017 3:51 AM EDT) [facility] gist Method Time Signature Neutrophils % 31.9 % [facility] LABORATORY Neutr Abs (ANC) 2.09 1.70 - [facility] 6.10 [facility] x10(3)/[facility] LABORATORY Lymphocytes % 55.6 % [facility] LABORATORY Lymphocytes Abs 3.6 (H) 0.9 - 3.2 [facility] x10(3)/[facility] LABORATORY Monocytes % 6.6 % [facility] LABORATORY Monocyte Abs 0.4 0.3 - 0.9 [facility] x10(3)/[facility] LABORATORY Eosinophils % 4.7 % [facility] LABORATORY Eosinophils Abs 0.3 0.0 - 0.4 [facility] x10(3)/[facility] LABORATORY Basophils % 0.6 % [facility] [place] [place] Basophils Abs 0.0 0.0 - 0.1 [facility] x10(3)/[facility] LABORATORY Immature Gran % 0.60 % [facility] Comment: Immature granulocytes(IG's)percentage an d absolute count will include metamyelocytes, myelocytes, and promyelo cytes. Blood smears from CBCs yielding IG's will be scanned manually for concor dance. If this scan disagrees with the automated IG or if promyelocytes are not ed, a manual differential will be performed. Anuja Gran Abs 0.04 0.00 - 0.04 x10(3)/[facility] LABORATORY Specimen Anatomical Collection Method Collection Time Receive d Time (Source) Location / / Volume Laterality Blood specimen 09/15/2017 3:51 AM 018 4:05 (specimen) EDT AM EDT Resulting Agency Comment Spec In Lab Rose Justice MD HEMATOLOGY ORDERABLES Performing Organization Address City/State/[place] [address] (ABNORMAL) Hemogram (09/15/2017 3:51 AM EDT) Analysis Performed At Patho logist Time Signature WBC 6.6 4.0 - 9.5 [facility] x10(3)/[facility] LABORATORY RBC 4.86 4.00 - [facility] x10(6)/[facility] LABORATORY Hemoglobin 15.1 11.7 - [facility] 15.[facility] gm/dL [facility] Hematocrit 45.9 (H) 35.7 - [facility] 45.8 % [facility] MCV 94.4 82.6 - [facility] 94[facility]4 [facility] LABORATORY MCH 31.1 27.1 - [facility]ULI 32.0 pg [facility] MCHC 32.9 31.7 - [facility] 35.0 gm/dL [facility] Platelets 253 145 - 357 [facility] x10(3)/[facility] LABORATORY RDWSD 42.7 37.0 - [facility] LAB[facility]AT[facility] RDWCV 12.4 11.5 - [facility]ULI 14.1 % [facility] LAB[facility]ORY MPV 8.9 7.6 - 12.9 [facility] LABORATORY nRBC % Auto 0.0 % [facility] LABORATORY nRBC Abs Auto 0.000 0.000 - [place] 0.000 [facility] x10(3)/[facility] LABORATORY Specimen Anatomical Collection Method Collection Time Receive d Time (Source) Location / / Volume Laterality Blood specimen 09/15/2017 3:51 AM 018 4:05 (specimen) EDT AM EDT Resulting Agency Comment Spec In Lab Rose Justice MD HEMATOLOGY ORDERABLES Performing Organization Address City/State/[place] [address] (ABNORMAL) BMP w/fasting Glucose (09/15/2017 3:51 AM EDT) athologist Signature Glucose 103 (H) 65 - 99 [facility] Fasting mg/dL [facility] LAB[facility]ATORY Comment: ?Fasting* Glucose Interpretive C riteria Normal ?65-99 mg/dL Impaired Fasting glucose ?100-125 mg/dL Consistent with Diabetes Mellitus ? >or= 126 mg/dL *Fasting is defined as no caloric intake for at least 8 hours In the absence of unequivocal hypergly cemia a plasma glucose value of >or= 126 mg/dL should be repeated on a subseq uent day. Diagnosis and Classification of Diabetes Mellitus, Position Statement from the [place] [employer]. ??Diabete s Care, Volume 33, Supplement 1, Feb 2009 BUN 25 (H) 8 - 18 mg/dL [facility] LABORATORY Creatinine 0.99 0.70 - 1.20 mg/dL [facility] LABORATORY Sodium 141 135 - 145 mmol/L [facility] LABORATORY Potassium 4.4 3.5 - 5.0 mmol/L [facility] LABORATORY Comment: Please note: ??Patients with WBC >100,00 0 may have falsely elevated Potassium levels. ??For accurate Potassium quantif ication in these patients send serum separator tube (gold top) for subsequent determinations. ??Contact the Clinical Chemistry Laboratory if there are any qu estions. Chloride 104 98 - 107 mmol/L [facility] LABORATORY CO2 24 22 - 31 mmol/L [facility] LABORATORY Anion Gap 13 5 - 15 mmol/L [facility] LABORATORY Calcium 9.2 8.5 - 10.5 mg/dL [facility] LABORATORY Estimated GFR 56 (L) >=60 mL/min/1.73 m?? [facility] LABORATORY Comment: The eGFR was calculated using the CKD-EP I equation. As with all creatinine based estimates of kidney function, eGFR values calculated with the CKD-EPI equation are not accurate in patients wi th acute kidney failure, extremes of body mass or the acutely ill. http://Partigi/Hotelscannkdep http://Partigi/Hotelscannkf eGFR 65 >=60 mL/min/1.73 m?? [facility] LABORATORY Comment: The eGFR was calculated using the CKD-EP I equation. As with all creatinine based estimates of kidney function, eGFR values calculated with the CKD-EPI equation are not accurate in patients wi th acute kidney failure, extremes of body mass or the acutely ill. http://Partigi/Hotelscannkdep http://Partigi/Hotelscannkf Specimen Anatomical Collection Method Collection Time Receive d Time (Source) Location / / Volume Laterality Blood specimen 09/15/2017 3:51 AM 018 4:05 (specimen) EDT AM EDT Resulting Agency Comment Spec In Lab Raj Smith MD CHEMISTRY ORDERABLES Performing Organization Address City/State/[place] [address] Prothrombin Time (09/15/2017 3:51 AM EDT) P athologist Signature PT 10.2 9.4 - 12.5 [facility] LABORATORY INR 0.9 [facility] LABORATORY Comment: An INR <2.0 indicates adequate procoagul ant activity for hemostasis in most patients without underlying bleeding dis orders, though the INR may not adequately reflect hemostatic capacity i n patients with liver disease and synthetic impairment. The recommended ta rget INR range for therapeutic anticoagulation is 2.0 ? 3.0 for most applications, though lower and higher ranges may be appropriate depending on c linical circumstances. Specimen Anatomical Collection Method Collection Time Receive d Time (Source) Location / / Volume Laterality Blood specimen 09/15/2017 3:51 AM 018 4:05 (specimen) EDT AM EDT Resulting Agency Comment Spec In Lab Raj Smith MD HEMATOLOGY ORDERABLES Performing Organization Address City/[facility]/[place] [address] SCAN DOC: CARDIAC CATH (09/15/2017 12:00 AM EDT) Narrative 09/15/2017 12:00 AM EDT This result has an attachment that is no t available. Ordered by an unspecified provider. Scanning Provider MEDIA MGR SCAN EXT ORDR/RSLT EKG 12 Lead (09/14/2017 2:55 PM EDT) Component Value Ref Range Test Analysis Performed Pathologis t Method Time At Signature Ventricular rate 54 BPM MUSE SYSTEM Atrial Rate 54 BPM MUSE SYSTEM P-R Interval 178 ms MUSE SYSTEM QRS Duration 80 ms MUSE SYSTEM Q-T Interval 438 ms MUSE SYSTEM QTC Calculated 415 ms MUSE SYSTEM (Bezet) Calculated P [place] 61 degrees MUSE SYSTEM Calculated R [place] 35 degrees MUSE SYSTEM Calculated T [place] 59 degrees MUSE SYSTEM INTERPRETATION Sinus bradycardia MUSE SY STEM Otherwise normal ECG When compared with ECG of 14-SEP-2017 08:06, (unconfirmed) No significant change was found Confirmed by MD Miradna, Nirmal Partida ([id number]) on 09/15/2017 8:41: 13 AM Specimen Anatomical Collection Method Collection Time Receive d Time (Source) Location / / Volume Laterality 09/14/2017 2:55 PM 8 8:41 EDT AM EDT Raj Smith MD ECG ORDERABLES Performing Organization Address City/State/ZIP Code Phon e Number MUSE SYSTEM Cardiac Enzymes (LEB/CGP) (09/14/2017 8:44 AM EDT) P athologist Signature Troponin-T <0.01 0.00 - 0.00 [facility] ng/mL [facility] LABORATORY Comment: The 99th percentile for Troponin T is le ss than 0.01 ng/mL, any detectable cTnT concentration using this assay should be considered elevated. According to the third universal definit ion of myocardial infarction the following criteria with a clinical prese ntation consistent with acute myocardial ischemia meets the diagnosis for a myocardial infarction ([place]). Detection of a rise and/or fall of cTnT, with at least one value greater than the 99th percentile (> or = 0.01) and wi th at least one of the following ?? Symptoms of ischemia ?? New or presumed new significant ST-se gment-T wave (ST-T) changes or new left bundle branch block (LBBB) ?? Development of pathologic Q waves in the ECG ?? Imaging evidence of new loss of viabl e myocardium or new regional wall motion abnormality ?? Identification of an intracoronary th rombus by angiography or autopsy Samples for cTnT testing should be obtai prince serially upon first assessment and again 3 to 6 hours later. If the clinica l suspicion is high and previous samples have been negative an additional sample may be indicated. Reference: Third [place] Definition of Myocardial Infarction. Journal of the [place] College [employer] 2012;60:1581-98 CK, Total 37 0 - 160 unit/L [facility] LABORATORY Specimen Anatomical Collection Method Collection Time Receive d Time (Source) Location / / Volume Laterality Blood specimen 09/14/2017 8:44 AM 018 9:26 (specimen) EDT AM EDT Resulting Agency Comment Spec In Lab Raj Smith MD CHEMISTRY ORDERABLES Performing Organization Address City/State/[place] [address] EKG 12 Lead (09/14/2017 8:06 AM EDT) Component Value Ref Range Test Analysis Performed Pathologis t Method Time At Signature Ventricular rate 52 BPM MUSE SYSTEM Atrial Rate 52 BPM MUSE SYSTEM P-R Interval 186 ms MUSE SYSTEM QRS Duration 88 ms MUSE SYSTEM Q-T Interval 464 ms MUSE SYSTEM QTC Calculated 431 ms MUSE SYSTEM (Bezet) Calculated P [place] 63 degrees MUSE SYSTEM Calculated R [place] 33 degrees MUSE SYSTEM Calculated T [place] 57 degrees MUSE SYSTEM INTERPRETATION Sinus bradycardia MUSE SY STEM Otherwise normal ECG When compared with ECG of 04-NOV-2015 08:13, No significant change was found Confirmed by MD David, Pablito ([id number]) on 09/15/2017 5:44:13 PM Specimen Anatomical Collection Method Collection Time Receive d Time (Source) Location / / Volume Laterality 09/14/2017 8:06 AM 8 5:44 EDT PM EDT Raj Smith MD ECG ORDERABLES Performing Organization Address City/State/ZIP Code Phon e Number MUSE SYSTEM Prothrombin Time (09/14/2017 5:36 AM EDT) P athologist Signature PT 9.9 9.4 - 12.5 [facility] LABORATORY INR 0.9 [facility] LABORATORY Comment: An INR <2.0 indicates adequate procoagul ant activity for hemostasis in most patients without underlying bleeding dis orders, though the INR may not adequately reflect hemostatic capacity i n patients with liver disease and synthetic impairment. The recommended ta rget INR range for therapeutic anticoagulation is 2.0 ? 3.0 for most applications, though lower and higher ranges may be appropriate depending on c linical circumstances. Specimen Anatomical Collection Method Collection Time Receive d Time (Source) Location / / Volume Laterality Blood specimen Venous Draw / 09/14/2017 5:36 AM 2017 5:53 (specimen) Unknown EDT AM EDT Resulting Agency Comment Spec In Lab Nirmal Vizcaino MD HEMATOLOGY ORDERABLES Performing Organization Address City/State/[place] [address] (ABNORMAL) BMP w/fasting Glucose (09/14/2017 5:36 AM EDT) Analysis Performed At Patho logist Time Signature Glucose Not Perf 65 - 99 [facility] LABORATORY Comment: Duplicate order ?Fasting* Glucose Interpretive C riteria Normal ?65-99 mg/dL Impaired Fasting glucose ?100-125 mg/dL Consistent with Diabetes Mellitus ? >or= 126 mg/dL *Fasting is defined as no caloric intake for at least 8 hours In the absence of unequivocal hypergly cemia a plasma glucose value of >or= 126 mg/dL should be repeated on a subseq uent day. Diagnosis and Classification of Diabetes Mellitus, Position Statement from the [place] [employer]. ??Diabete s Care, Volume 33, Supplement 1, Feb 2009 BUN 23 (H) 8 - 18 mg/dL [facility] LABORATORY Creatinine 0.91 0.70 - 1.20 mg/dL [facility] LABORATORY Sodium 142 135 - 145 mmol/L [facility] LABORATORY Potassium 4.3 3.5 - 5.0 mmol/L [facility] LABORATORY Comment: Please note: ??Patients with WBC >100,00 0 may have falsely elevated Potassium levels. ??For accurate Potassium quantif ication in these patients send serum separator tube (gold top) for subsequent determinations. ??Contact the Clinical Chemistry Laboratory if there are any qu estions. Chloride 104 98 - 107 mmol/L [facility] LABORATORY CO2 Not Perf - [facility] LABORATORY Comment: Add-on request. Sample too old to perform test. Anion Gap Unable to Calculate 5 - 15 mmol/L [facility] LABORATORY Calcium 9.0 8.5 - 10.5 mg/dL [facility] LABORATORY Estimated GFR 62 >=60 mL/min/1.73 m?? [facility] LAB[facility]ATORY Comment: The eGFR was calculated using the CKD-EP I equation. As with all creatinine based estimates of kidney function, eGFR values calculated with the CKD-EPI equation are not accurate in patients wi th acute kidney failure, extremes of body mass or the acutely ill. http://Partigi/Hotelscannkdep http://Partigi/[facility] WATONGAnkf eGFR 72 >=60 mL/min/1.73 m?? [facility] LABORATORY Comment: The eGFR was calculated using the CKD-EP I equation. As with all creatinine based estimates of kidney function, eGFR values calculated with the CKD-EPI equation are not accurate in patients wi th acute kidney failure, extremes of body mass or the acutely ill. http://Partigi/Hotelscannkdep http://Partigi/[facility] [email or web address] Specimen Anatomical Collection Method Collection Time Receive d Time (Source) Location / / Volume Laterality Blood specimen 09/14/2017 5:36 AM 018 8:32 (specimen) EDT AM EDT Resulting Agency Comment Spec In Lab Raj Smith MD CHEMISTRY ORDERABLES Performing Organization Address City/[facility]/[place] [address] Heparin (unfractionated) Level (09/14/2017 5:36 AM EDT) P athologist Signature Heparin UFH 0.39 IU/mL [facility] LABORATORY Comment: Guidelines for therapeutic unfractionate d heparin levels are summarized below. Heparin (Anti-Xa) levels should be deter mined in a plasma sample that has been drawn 6 hours after a dose change i.e., steady-state has been reached. DRUG ?Dos ing Schedule ? Target Peak Steady-State ?Heparin (Anti-Xa) Levels (Units/mL) Unfractionated ?Continuous inf usion ?0.3-0.7 Heparin ?0.3-0.6 fo r some neurology indications Specimen Anatomical Collection Method Collection Time Receive d Time (Source) Location / / Volume Laterality Blood specimen 09/14/2017 5:36 AM 018 5:53 (specimen) EDT AM EDT Resulting Agency Comment Spec In Lab Raj Smith MD HEMATOLOGY ORDERABLES Performing Organization Address City/[facility]/ZIP Code Phon e Number [address] Differential, Automated (09/14/2017 5:36 AM EDT) P athologist Signature Neutrophils % 38.6 % [facility] LABORATORY Neutr Abs (ANC) 2.35 1.70 - [place] [facility] 6.10 [facility] x10(3)/[facility] LABORATORY Lymphocytes % 50.3 % [facility] LABORATORY Lymphocytes Abs 3.1 0.9 - 3.2 [facility] x10(3)/[facility] LABORATORY Monocytes % 5.3 % [facility] LABORATORY Monocyte Abs 0.3 0.3 - 0.9 [facility] x10(3)/[facility] LABORATORY Eosinophils % 4.4 % [facility] LABORATORY Eosinophils Abs 0.3 0.0 - 0.4 [facility] x10(3)/[facility] LABORATORY Basophils % 0.7 % [facility] LABORATORY Basophils Abs 0.0 0.0 - 0.1 [place] [id number](3)/[facility] LABORATORY Immature Gran % 0.70 % [facility] LABORATORY Comment: Immature granulocytes(IG's)percentage an d absolute count will include metamyelocytes, myelocytes, and promyelo cytes. Blood smears from CBCs yielding IG's will be scanned manually for concor dance. If this scan disagrees with the automated IG or if promyelocytes are not ed, a manual differential will be performed. Anuja Gran Abs 0.04 0.00 - 0.04 x10(3)/[facility] LABORATORY Specimen Anatomical Collection Method Collection Time Receive d Time (Source) Location / / Volume Laterality Blood specimen 09/14/2017 5:36 AM 018 5:53 (specimen) EDT AM EDT Resulting Agency Comment Spec In Lab Rose Justice MD HEMATOLOGY ORDERABLES Performing Organization Address City/State/[place] [address] (ABNORMAL) Hemogram (09/14/2017 5:36 AM EDT) Analysis Performed At Patho logist Time Signature WBC 6.1 4.0 - 9.5 [facility] x10(3)/[facility] LABORATORY RBC 4.82 4.00 - [facility] 5.21 [facility] x10(6)/[facility] LABORATORY Hemoglobin 15.4 11.7 - [facility] 15.5 gm/dL [facility] LABORATORY Hematocrit 46.0 (H) 35.7 - [place] [place] 45.8 % [facility] LABORAT[facility] MCV 95.4 (H) 82.6 - [place] [facility] 94.4 [facility] LABORATORY MCH 32.0 27.1 - [place] 32.0 pg [facility] LAB[facility] MCHC 33.5 31.7 - [place] 35.0 gm/dL [facility] Platelets 241 145 - 357 [facility] x10(3)/[facility] LABORATORY RDWSD 45.1 37.0 - [place] 46.0 [facility] LABORATORY RDWCV 12.8 11.5 - [place] 14.1 % [facility] LABOR[facility]ORY MPV 8.9 7.6 - 12.9 [place] [facility] LABORATORY nRBC % Auto 0.0 % [facility] LABORATORY nRBC Abs Auto 0.000 0.000 - [place] 0.000 [facility] x10(3)/[facility] LABORATORY Specimen Anatomical Collection Method Collection Time Receive d Time (Source) Location / / Volume Laterality Blood specimen 09/14/2017 5:36 AM 018 5:53 (specimen) EDT AM EDT Resulting Agency Comment Spec In Lab Rose Justice MD HEMATOLOGY ORDERABLES Performing Organization Address City/State/[place] [address] Glucose, fasting (09/14/2017 5:36 AM EDT) P athologist Signature Glucose 89 65 - 99 [facility] Fasting mg/dL [facility] LAB[facility]ORY Comment: ?Fasting* Glucose Interpretive C riteria Normal ?65-99 mg/dL Impaired Fasting glucose ?100-125 mg/dL Consistent with Diabetes Mellitus ? >or= 126 mg/dL *Fasting is defined as no caloric intake for at least 8 hours In the absence of unequivocal hypergly cemia a plasma glucose value of >or= 126 mg/dL should be repeated on a subseq uent day. Diagnosis and Classification of Diabetes Mellitus, Position Statement from the [place] [employer]. ??Diabete s Care, Volume 33, Supplement 1, Feb 2009 Specimen Anatomical Collection Method Collection Time Receive d Time (Source) Location / / Volume Laterality Blood specimen 09/14/2017 5:36 AM 018 5:53 (specimen) EDT AM EDT Resulting Agency Comment Spec In Lab Raj Smith MD CHEMISTRY ORDERABLES Performing Organization Address City/[facility]/[place]IP [facility] [place] [address] LDL Cholesterol, Direct (09/14/2017 5:36 AM EDT) athologist Signature LDL Chol 102 mg/dL [facility] LABORATORY Comment: Lowest Risk: <100 mg/dL Lower Risk: 100-129 mg/dL Borderline High Risk: 130-159 mg/dL High Risk: 160-189 mg/dL Very High Risk: >th=273 mg/dL Specimen Anatomical Collection Method Collection Time Receive d Time (Source) Location / / Volume Laterality Blood specimen 09/14/2017 5:36 AM 018 5:53 (specimen) EDT AM EDT Resulting Agency Comment Spec In Lab Raj Smith MD CHEMISTRY ORDERABLES Performing Organization Address City/[facility] Phon e Number [address] Hemoglobin A1c (09/14/2017 5:36 AM EDT) athologist Signature Hemoglobin A1C 5.6 4.3 - 5.6 [facility] LABORATORY Comment: Reference Range: 4.3 - 5.6% 5.7 - 6.4% - Increased Risk of Developin g Diabetes Mellitus >=6.5% - Consistent with diagnosis of Di abetes Mellitus In the absence of hyperglycemia (i.e. pl asma glucose > 200 mg/dL) or classic symptoms of hyperglycemia a repeat measu rement of HbA1c should be performed on a separate sample to confirm the diagnos is. Diagnosis and Classification of Diabetes Mellitus, Diabetes Care 2013; 36: Suppl. 1, S67-74 Est Avg Gluc See note mg/dL [facility] LABORATORY Comment: Estimated Average Glucose not appropriat e for patients over 70 years of age. eAG equivalents for HbA1c percentages: HbA1c(%) ?eAG(mg/dL) 6.0 ?126 6.5 ?140 7.0 ?154 7.5 ?169 8.0 ?183 8.5 ?197 9.0 ?212 9.5 ?226 10.0 ? 240 Limitations: The eAG calculation has not been validated on women, individuals below 18 years old and above 70 years old, and individuals with hemoglobinopathies. Additional resources are available on [facility] ADA website. Yang PERES, Layla J, Cora R, et al. ??Tr anslating the A1C assay into estimated average glucose values. ??Diabetes Care 2008:31(8):2421-5607. Specimen Anatomical Collection Method Collection Time Receive d Time (Source) Location / / Volume Laterality Blood specimen 09/14/2017 5:36 AM 018 5:53 (specimen) EDT AM EDT Resulting Agency Comment Spec In Lab Raj Smith MD CHEMISTRY ORDERABLES Performing Organization Address City/State/[place] [address] Lipid Panel (09/14/2017 5:36 AM EDT) athologist Signature Chol, Total 168 mg/dL [facility] LABORATORY Comment: Lower Risk: <200 mg/dL Average Risk: 200-239 mg/dL Higher Risk: >zq=390 mg/dL Triglycerides 158 mg/dL [facility] LABORATORY Comment: Average Risk/Lower Risk: <150 mg/dL Borderline High Risk: 150-199 mg/dL High Risk: 200-499 mg/dL Very High Risk: >tj=472 mg/dL HDL 48 mg/dL [facility] LABORATORY Comment: Males: ?? Higher Risk: <40 mg/dL Females: ?? HIgher Risk: <50 mg/dL LDL Cholesterol 88 mg/dL [facility] LABORATORY Comment: Lowest Risk: <100 mg/dL Lower Risk: 100-129 mg/dL Borderline High Risk: 130-159 mg/dL High Risk: 160-189 mg/dL Very High Risk: >jb=243 mg/dL Chol/HDL Ratio 3.5 ratio [facility] LABORATORY Lipid Interpretation See Note [facility] LABORATORY Comment: Lipid management should be guided by a p atient? s ASCVD risk, goals and preferences. ACC/AHA Guidelines recommend high intens ity statin if clinical ASCVD or LDL greater than or equal to 190 mg/dL. http://[employer]/FXH-JSP-Gvxonnxdz Adults aged 40-75 with LDL 70-189 mg/dL should have their 10 year ASCVD risk estimated with the ACC/AHA ASCVD risk es timator http://tools.acc.org/RMJCZ-Ftde-Zgbfbpdb r/ Statin should be discussed if risk great er than or equal to 7.5% in non-diabetics. With diabetes, moderate i ntensity statin is recommended if risk less than 7.5%, high intensity if risk g reater than or equal to 7.5%. Annual lipid monitoring on statins is no t necessary. Evaluate secondary causes of Triglycerid es greater than 500 mg/dL or LDL greater than 190 mg/dL: See table 6 of A CC/AHA Guideline. Lifestyle modification is a critical com ponent of ASCVD risk reduction. Specimen Anatomical Collection Method Collection Time Receive d Time (Source) Location / / Volume Laterality Blood specimen 09/14/2017 5:36 AM 018 5:53 (specimen) EDT AM EDT Resulting Agency Comment Spec In Lab Raj Smith MD CHEMISTRY ORDERABLES Performing Organization Address City/State/[place] [address] Heparin (unfractionated) Level (09/13/2017 8:28 PM EDT) athologist Signature Heparin UFH 0.55 IU/[facility] Comment: Guidelines for therapeutic unfractionate d heparin levels are summarized below. Heparin (Anti-Xa) levels should be deter mined in a plasma sample that has been drawn 6 hours after a dose change i.e., steady-state has been reached. DRUG ?Dos ing Schedule ? Target Peak Steady-State ?Heparin (Anti-Xa) Levels (Units/mL) Unfractionated ?Continuous inf usion ?0.3-0.7 Heparin ?0.3-0.6 fo r some neurology indications Specimen Anatomical Collection Method Collection Time Receive d Time (Source) Location / / Volume Laterality Blood specimen 09/13/2017 8:28 PM 018 8:50 (specimen) EDT PM EDT Resulting Agency Comment Spec In Lab Raj Smith MD HEMATOLOGY ORDERABLES Performing Organization Address City/State/[place] [address] Cardiac Enzymes (LEB/CGP) (09/13/2017 3:52 PM EDT) athologist Signature Troponin-T <0.01 0.00 - 0.00 [facility] ng/mL [facility] Comment: The 99th percentile for Troponin T is le ss than 0.01 ng/mL, any detectable cTnT concentration using this assay should be considered elevated. According to the third universal definit ion of myocardial infarction the following criteria with a clinical prese ntation consistent with acute myocardial ischemia meets the diagnosis for a myocardial infarction ([place]). Detection of a rise and/or fall of cTnT, with at least one value greater than the 99th percentile (> or = 0.01) and wi th at least one of the following ?? Symptoms of ischemia ?? New or presumed new significant ST-se gment-T wave (ST-T) changes or new left bundle branch block (LBBB) ?? Development of pathologic Q waves in the ECG ?? Imaging evidence of new loss of viabl e myocardium or new regional wall motion abnormality ?? Identification of an intracoronary th rombus by angiography or autopsy Samples for cTnT testing should be obtai prince serially upon first assessment and again 3 to 6 hours later. If the clinica l suspicion is high and previous samples have been negative an additional sample may be indicated. Reference: Third [place] Definition of Myocardial Infarction. Journal of the [place] College [employer] 2012;60:1581-98 CK, Total 44 0 - 160 unit/L [facility] LABORATORY Specimen Anatomical Collection Method Collection Time Receive d Time (Source) Location / / Volume Laterality Blood specimen 09/13/2017 3:52 PM 018 4:03 (specimen) EDT PM EDT Resulting Agency Comment Spec In Lab Raj Smith MD CHEMISTRY ORDERABLES Performing Organization Address City/State/[place] [address] Heparin (unfractionated) Level (09/13/2017 2:10 PM EDT) P athologist Signature Heparin UFH 0.51 IU/mL [facility] LABORATORY Comment: Guidelines for therapeutic unfractionate d heparin levels are summarized below. Heparin (Anti-Xa) levels should be deter mined in a plasma sample that has been drawn 6 hours after a dose change i.e., steady-state has been reached. DRUG ?Dos ing Schedule ? Target Peak Steady-State ?Heparin (Anti-Xa) Levels (Units/mL) Unfractionated ?Continuous inf usion ?0.3-0.7 Heparin ?0.3-0.6 fo r some neurology indications Specimen Anatomical Collection Method Collection Time Receive d Time (Source) Location / / Volume Laterality Blood specimen 09/13/2017 2:10 PM 018 2:20 (specimen) EDT PM EDT Resulting Agency Comment Spec In Lab Raj Smith MD HEMATOLOGY ORDERABLES Performing Organization Address City/State/[place] [address] ECHOCARDIOGRAM COMPLETE W CONTRAST (09/13/2017 11:28 AM EDT) P athologist Signature EF 65 HEARTLAB SYSTEM Specimen (Source) Anatomical Location Collection Method / Collectio n Time Received Time / Laterality Volume 09/13/2017 Narrative HEARTLAB SYSTEM - 09/13/2017 5:00 PM EDT Procedure: ?Transthoracic Echocardiogram Patient: ?ORESTES EMANI C ? (Age): 1945(72y) Med Rec#: ? [id number] ?Sex: ?F ? [place] [facility] [place]t / Wt: ??165(cm)/84(kg) Pt. Loc: ?[facility] ? BSA: ?1.91 Study Date: ?? 09/13/2017 ?Pt. Type: Inpatient Tape: ? 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 Sinus BP: ? 154/82 SUMMARY: 1. The left ventricular chamber size is normal. Concentric left ventricular remodeling is observed. Basa l septal hypertrophy is observed. There is no evidence of LVOT o bstruction. There is normal global left ventricular systolic functio n. ??Ejection fraction is estimated to be 65%. There are no left v entricular segmental wall motion abnormalities. Assessment of diastolic f unction is indeterminate. 2. The left atrium is normal in size. 3. Right ventricular chamber size, wall thickness, and systolic function are within normal limits. The estimated pulmonary artery systolic pressure is 24 mmHg. 4. The aortic valve is tricuspid. Mild a ortic leaflet calcification is visualized. There is mild aortic valve s tenosis. The mean trans-valvular gradient across ??the aortic valve is 9 mmHg. The peak instantaneous trans-valvular gradient across ??the aor tic valve is 14 mmHg. Mild to moderate (1-2+/4+) aortic valve regurgit ation is present. 5. There is mitral annular calcification . There is no evidence of mitral stenosis. There is mild (1+/4+) mitral r egurgitation present. 6. Compared to 09/06/2009, the aortic faina ve has become mildly stenotic. Findings ? : Study Quality: ? Adequate Left Ventricle: ? The left ventricul ar chamber size is normal. ?Borderline concentric left ventric ular hypertrophy is observed. remodeling ?Basal septal hypertrophy is observ ed. ?There is no evidence of LVOT obstr uction. ?There is normal global left ventri cular systolic function. ??Ejection fraction is estimated to be 65%. ?There are no left ventricular segm ental wall motion abnormalities. ?Assessment of diastolic function i s indeterminate. Left Atrium: ? The left atrium is no rmal in size.30 ML/M2 Right Ventricle: ? Right ventricular chamber size, wall thickness, and systolic function are within normal limi ts. ?No pulmonary hypertension is noted . ?The estimated pulmonary artery sys tolic pressure is 23.8 mmHg. Right Atrium: ? The right atrium is not well visualized. Aortic Valve: ? The aortic valve is tricuspid. ?Mild aortic leaflet calcification is visualized. ?The peak instantaneous trans-valvu lar gradient across ??the aortic valve is 14 mmHg. ?The mean trans-valvular gradient a cross ??the aortic valve is 9 mmHg. ?The calculated aortic valve area i s 1.42 cm2. ?There is mild aortic valve stenosi s. ?Mild to moderate (1-2+/4+) aortic valve regurgitation is present. Mitral Valve: ? The mitral valve markus flets are mildly thickened. ?There is mitral annular calcificat ion. ?There is no evidence of mitral faraz nosis. ?There is mild (1+/4+) mitral regur gitation present. Tricuspid Valve: ? The tricuspid faina ve appears normal in structure and function. ?There is trace tricuspid regurgita tion present. Pulmonic Valve: ? The pulmonic valve appears normal in structure and function. ?There is trace pulmonic regurgitat ion present. Pericardium: ? The pericardium appea rs normal and there is no evidence of a pericardial effusion. Aorta: ? The aortic root is normal i n size. ?The ascending aorta is normal in s ize. Pulmonary Artery: ? The main pulmona ry artery appears normal. Venous: ? The inferior vena cava rohit ears normal in size. ?There is a greater than 50% respir atory change in the inferior vena cava dimension. Misc: ? See remainder of report for additional findings. ?Two-dimensional echo, spectral Dop pler and color Doppler performed. ?Optison contrast (one 3 ml vial) w as used to enhance endocardial definition. Excess contrast was discarde d. Chambers 2D ?Value ?Units (Range) ? IVSd (2D) ? 1.3 ?cm ? LVPWd (2D) ?1 ?cm ? IVS:LVPW ratio (2D) 1.3 ?ratio ? RWT (2D) ?0.7 ?ratio ? RWT PW (2D) ? 0.6 ?ratio ? LVIDd (2D) ?3.4 ?cm ? LVIDs (2D) ?1.5 ?cm ? LVIDd (2D) index ?1.8 ?cm/m2 ? LVIDs (2D) index ?0.8 ?cm/m2 ? LV FS (2D) ?56 ? % ? EF Teichholz (2D) ?? 87 ? % ? Ao root diameter (2D3.5 ?cm (2.1 - 3.6) ? Volumes/Mass ?Value ?Units (Range) ? LA ESV BP (A/L) inde29.7 ? ml/m2 ? LV mass (2D) ?122.6 ?g ? LV mass (2D) index ??64.2 ? g/m2 ? Diastolic/Systolic Function ?Value ?Units (Range) ? MV E-wave Vmax ?1.1 ?m/sec ? MV deceleration ypui365.7 ? msec ? MV A-wave Vmax ?0.7 ?m/sec ? MV E:A ratio ?1.5 ?ratio ? LV septal e' Vmax ?? 0.1 ?m/sec ? LV lateral e' Vmax ??0.1 ?m/sec ? LV average e' Vmax ??0.1 ?m/sec ? LV E:e' septal ratio15.6 ? ratio ? LV E:e' lateral rati15.6 ? ratio ? LV average E:e' rati15.6 ? ratio ? Aortic Valve ?Value ?Units (Range) ? AV Vmax ? 1.9 ?m/sec ? AV VTI ?47.3 ? cm ? AV peak gradient ?14 ? mmHg ? AV mean gradient ?9 ?mmHg ? LVOT diameter ? 2 ?cm ? LVOT Vmax ? 0.9 ?m/sec ? LVOT VTI ?21.9 ? cm ? LVOT peak gradient ??2.9 ?mmHg ? LVOT mean gradient ??1.9 ?mmHg ? DOI (VTI) ? 0.5 ?ratio ? DOI (Vmax) ?0.5 ?ratio ? SV LVOT ? 68.8 ? ml ? CO LVOT ? 12.3 ? l/min ? Cardiac index ? 6.5 ?l/min/m2 ? VY (continuity Vmax1.4 ?cm2 ? VY (continuity Vmax0.7 ?cm2/m2 ? VY (continuity VTI)1.5 ?cm ? VY (continuity VTI)0.8 ?cm2/m2 ? Tricuspid Valve ?Value ?Units (Range) ? TR Vmax ? 2.3 ?m/sec ? TR peak gradient ?20.8 ? mmHg ? RAP ? 3 ?mmHg ? RVSP ?23.8 ? mmHg ? Wall Motion: Segment Name ?Rest ? Base-Anteroseptal ?? Normal ? Base-Anterior ? Normal ? Base-Anterolateral ??Normal ? Base-Posterolateral Normal ? Base-Inferior ? Normal ? Base-Inferoseptal ?? Normal ? Mid-Anteroseptal ?Normal ? Mid-Anterior ?Normal ? Mid-Anterolateral ?? Normal ? Mid-Posterolateral ??Normal ? Mid-Inferior ?Normal ? Mid-Inferoseptal ?Normal ? [place]-Septal ? Normal ? [place]-Anterior ? Normal ? [place]-Lateral ?Normal ? [place]-Inferior ? Normal ? [place]-Tip ?Normal ? This report has been electronically sign ed by: _ Raj Smith MD ? 09/13/2017 17:00 :14 Images reviewed and interpretation verif ied [facility] Cardiac Ultrasound Laboratory Procedure Note Raj Smith MD - 09/13/2017Formattin g of this note might be different from the original. Procedure: Transthoracic Echocardiogram Patient: ORESTES Clark (Age): (72y) Med Rec#: [id number] Sex: F [place] [facility] [place] / Wt: 165(cm)/84(kg) Pt. Loc: [facility] BSA: 1.91 Study Date: 09/13/2017 Pt. 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 The left ventricular chamber size is normal. Concentric left ventricular remodeling is observed. Basa l septal hypertrophy is observed. There is no evidence of LVOT o bstruction. There is normal global left ventricular systolic functio n. Ejection fraction is estimated to be 65%. There are no left v entricular segmental wall motion abnormalities. Assessment of diastolic f unction is indeterminate. 2. The left atrium is normal in size. 3. Right ventricular chamber size, wall thickness, and systolic function are within normal limits. The estimated pulmonary artery systolic pressure is 24 mmHg. 4. The aortic valve is tricuspid. Mild a ortic leaflet calcification is visualized. There is mild aortic valve s tenosis. The mean trans-valvular gradient across the aortic valve is 9 mm Hg. The peak instantaneous trans-valvular gradient across the aorti c valve is 14 mmHg. Mild to moderate (1-2+/4+) aortic valve regurgit ation is present. 5. There is mitral annular calcification . There is no evidence of mitral stenosis. There is mild (1+/4+) mitral r egurgitation present. 6. Compared to 09/06/2009, the aortic faina ve has become mildly stenotic. Findings : Study Quality: Adequate Left Ventricle: The left ventricular mervin mber size is normal. Borderline concentric left ventricular hypertrophy is observed. remodeling Basal septal hypertrophy is observed. There is no evidence of LVOT obstructio n. There is normal global left ventricular systolic function. Ejection fraction is estimated to be 65%. There are no left ventricular segmental wall motion abnormalities. Assessment of diastolic function is ind eterminate. Left Atrium: The left atrium is normal i n size.30 ML/M2 Right Ventricle: Right ventricular chamb er size, wall thickness, and systolic function are within normal limi ts. No pulmonary hypertension is noted. The estimated pulmonary artery systolic pressure is 23.8 mmHg. Right Atrium: The right atrium is not we ll visualized. Aortic Valve: The aortic valve is tricus pid. Mild aortic leaflet calcification is vi sualized. The peak instantaneous trans-valvular g radient across the aortic valve is 14 mmHg. The mean trans-valvular gradient across the aortic valve is 9 mmHg. The calculated aortic valve area is 1.4 2 cm2. There is mild aortic valve stenosis. Mild to moderate (1-2+/4+) aortic valve regurgitation is present. Mitral Valve: The mitral valve leaflets are mildly thickened. There is mitral annular calcification. There is no evidence of mitral stenosis . There is mild (1+/4+) mitral regurgitat ion present. Tricuspid Valve: The tricuspid valve rohit ears normal in structure and function. There is trace tricuspid regurgitation present. Pulmonic Valve: The pulmonic valve appea rs normal in structure and function. There is trace pulmonic regurgitation p resent. Pericardium: The pericardium appears nor mal and there is no evidence of a pericardial effusion. Aorta: The aortic root is normal in size . The ascending aorta is normal in size. Pulmonary Artery: The main pulmonary art alfreda appears normal. Venous: The inferior vena cava appears n ormal in size. There is a greater than 50% respiratory change in the inferior vena cava dimension. Misc: See remainder of report for additi onal findings. Two-dimensional echo, spectral Doppler and color Doppler performed. Optison contrast (one 3 ml vial) was us ed to enhance endocardial definition. Excess contrast was discarde d. Chambers 2D Value Units (Range) IVSd (2D) 1.3 cm LVPWd (2D) 1 cm IVS:LVPW ratio (2D) 1.3 ratio RWT (2D) 0.7 ratio RWT PW (2D) 0.6 ratio LVIDd (2D) 3.4 cm LVIDs (2D) 1.5 cm LVIDd (2D) index 1.8 cm/m2 LVIDs (2D) index 0.8 cm/m2 LV FS (2D) 56 % EF Teichholz (2D) 87 % Ao root diameter (2D3.5 cm (2.1 - 3.6) Volumes/Mass Value Units (Range) LA ESV BP (A/L) inde29.7 ml/m2 LV mass (2D) 122.6 g LV mass (2D) index 64.2 g/m2 Diastolic/Systolic Function Value Units (Range) MV E-wave Vmax 1.1 m/sec MV deceleration clbh007.7 msec MV A-wave Vmax 0.7 m/sec MV E:A ratio 1.5 ratio LV septal e' Vmax 0.1 m/sec LV lateral e' Vmax 0.1 m/sec LV average e' Vmax 0.1 m/sec LV E:e' septal ratio15.6 ratio LV E:e' lateral rati15.6 ratio LV average E:e' rati15.6 ratio Aortic Valve Value Units (Range) AV Vmax 1.9 m/sec AV VTI 47.3 cm AV peak gradient 14 mmHg AV mean gradient 9 mmHg LVOT diameter 2 cm LVOT Vmax 0.9 m/sec LVOT VTI 21.9 cm LVOT peak gradient 2.9 mmHg LVOT mean gradient 1.9 mmHg DOI (VTI) 0.5 ratio DOI (Vmax) 0.5 ratio SV LVOT 68.8 ml CO LVOT 12.3 l/min Cardiac index 6.5 l/min/m2 VY (continuity Vmax1.4 cm2 VY (continuity Vmax0.7 cm2/m2 VY (continuity VTI)1.5 cm VY (continuity VTI)0.8 cm2/m2 Tricuspid Valve Value Units (Range) TR Vmax 2.3 m/sec TR peak gradient 20.8 mmHg RAP 3 mmHg RVSP 23.8 mmHg Wall Motion: Segment Name Rest Base-Anteroseptal Normal Base-Anterior Normal Base-Anterolateral Normal Base-Posterolateral Normal Base-Inferior Normal Base-Inferoseptal Normal Mid-Anteroseptal Normal Mid-Anterior Normal Mid-Anterolateral Normal Mid-Posterolateral Normal Mid-Inferior Normal Mid-Inferoseptal Normal Volga-Septal Normal Volga-Anterior Normal Volga-Lateral Normal Volga-Inferior Normal Volga-Tip Normal This report has been electronically sign ed by: _ Raj Smith MD 09/13/2017 17:00:14 Images reviewed and interpretation verif ied [facility] Cardiac Ultrasound Laboratory Raj Smith MD ECHO ORDERABLES Performing Organization Address City/State/ZIP Code Phon e Number HEARTLAB SYSTEM Cardiac Enzymes (LEB/CGP) (09/13/2017 9:55 AM EDT) P athologist Signature Troponin-T <0.01 0.00 - 0.00 [facility] ng/mL [facility] Comment: The 99th percentile for Troponin T is le ss than 0.01 ng/mL, any detectable cTnT concentration using this assay should be considered elevated. According to the third universal definit ion of myocardial infarction the following criteria with a clinical prese ntation consistent with acute myocardial ischemia meets the diagnosis for a myocardial infarction ([place]). Detection of a rise and/or fall of cTnT, with at least one value greater than the 99th percentile (> or = 0.01) and wi th at least one of the following ?? Symptoms of ischemia ?? New or presumed new significant ST-se gment-T wave (ST-T) changes or new left bundle branch block (LBBB) ?? Development of pathologic Q waves in the ECG ?? Imaging evidence of new loss of viabl e myocardium or new regional wall motion abnormality ?? Identification of an intracoronary th rombus by angiography or autopsy Samples for cTnT testing should be obtai prince serially upon first assessment and again 3 to 6 hours later. If the clinica l suspicion is high and previous samples have been negative an additional sample may be indicated. Reference: Third [place] Definition of Myocardial Infarction. Journal of the [place] [employer] 2012;60:1581-98 CK, Total 50 0 - 160 unit/L [facility]OR[facility] Specimen Anatomical Collection Method Collection Time Receive d Time (Source) Location / / Volume Laterality Blood specimen 09/13/2017 9:55 AM 018 9:59 (specimen) EDT AM EDT Resulting Agency Comment Spec In Lab Raj Smith MD CHEMISTRY ORDERABLES Performing Organization Address City/[facility] [place] [address] Heparin (unfractionated) Level (09/13/2017 5:37 AM EDT) athologist Signature Heparin UFH 0.95 IU/mL [facility] LABORATORY Comment: Guidelines for therapeutic unfractionate d heparin levels are summarized below. Heparin (Anti-Xa) levels should be deter mined in a plasma sample that has been drawn 6 hours after a dose change i.e., steady-state has been reached. DRUG ?Dos ing Schedule ? Target Peak Steady-State ?Heparin (Anti-Xa) Levels (Units/mL) Unfractionated ?Continuous inf usion ?0.3-0.7 Heparin ?0.3-0.6 fo r some neurology indications Specimen Anatomical Collection Method Collection Time Receive d Time (Source) Location / / Volume Laterality Blood specimen 09/13/2017 5:37 AM 018 5:45 (specimen) EDT AM EDT Resulting Agency Comment Spec In Lab Raj Smith MD HEMATOLOGY ORDERABLES Performing Organization Address [facility] Code Phon e Number [place], [place] [address] (ABNORMAL) Differential, Automated (09/13/2017 3:29 AM EDT) Patholo gist Method Time Signature Neutrophils % 43.8 % [facility] LABORATORY Neutr Abs (ANC) 3.64 1.70 - [facility] 6.10 [facility] x10(3)/[facility] LABORATORY Lymphocytes % 48.8 % [facility] LABOR[facility]ORY Lymphocytes Abs 4.0 (H) 0.9 - 3.2 [facility] x10(3)/[facility] LABORATORY Monocytes % 5.1 % [facility] Monocyte Abs 0.4 0.3 - 0.9 [facility] x10(3)/[facility] LABORATORY Eosinophils % 1.4 % [facility]ORY Eosinophils Abs 0.1 0.0 - 0.4 [facility] x10(3)/[facility] LABORATORY Basophils % 0.4 % [facility]OR[facility] Basophils Abs 0.0 0.0 - 0.1 [facility] x10(3)/[facility] LABORATORY Immature Gran % 0.50 % [facility] Comment: Immature granulocytes(IG's)percentage an d absolute count will include metamyelocytes, myelocytes, and promyelo cytes. Blood smears from CBCs yielding IG's will be scanned manually for concor dance. If this scan disagrees with the automated IG or if promyelocytes are not ed, a manual differential will be performed. Anuja Gran Abs 0.04 0.00 - 0.04 x10(3)/[facility] LABORATORY Specimen Anatomical Collection Method Collection Time Receive d Time (Source) Location / / Volume Laterality Blood specimen 09/13/2017 3:29 AM 018 4:03 (specimen) EDT AM EDT Resulting Agency Comment Spec In Lab Rose Justice MD HEMATOLOGY ORDERABLES Performing Organization Address City/State/[place] [address] Hemogram (09/13/2017 3:29 AM EDT) P athologist Signature WBC 8.3 4.0 - 9.5 [facility] x10(3)/[facility] LABORATORY RBC 4.45 4.00 - [place] 5.21 [facility] x10(6)/[facility] LABORATORY Hemoglobin 14.0 11.7 - [facility] g[facility]dL [facility] Hematocrit 41.9 35.7 - [facility] % [facility] MCV 94.2 82.6 - [facility] 94[facility]4 [facility] LAB[facility]ORY MCH 31.5 27.1 - [facility] 32.0 pg [facility] MCHC 33.4 31.7 - [facility] 35.0 gm/dL [facility] Platelets 244 145 - 357 [facility] x10(3)/[facility] LABORATORY RDWSD 42.8 37.0 - [facility] 46[facility]0 [facility] LAB[facility]ORY RDWCV 12.4 11.5 - [facility] 14.1 % [facility] MPV 9.1 7.6 - 12.9 [facility] LABORATORY nRBC % Auto 0.0 % [facility] nRBC Abs Auto 0.000 0.000 - [facility] 0.000 [facility] x10(3)/[facility] LABORATORY Specimen Anatomical Collection Method Collection Time Receive d Time (Source) Location / / Volume Laterality Blood specimen 09/13/2017 3:29 AM 018 4:03 (specimen) EDT AM EDT Resulting Agency Comment Spec In Lab Rose Justice MD HEMATOLOGY ORDERABLES Performing Organization Address City/State/[place] [address] Cardiac Enzymes (LEB/CGP) (09/13/2017 3:29 AM EDT) P athologist Signature Troponin-T <0.01 0.00 - 0.00 [facility] ng/mL [facility] Comment: The 99th percentile for Troponin T is le ss than 0.01 ng/mL, any detectable cTnT concentration using this assay should be considered elevated. According to the third universal definit ion of myocardial infarction the following criteria with a clinical prese ntation consistent with acute myocardial ischemia meets the diagnosis for a myocardial infarction ([place]). Detection of a rise and/or fall of cTnT, with at least one value greater than the 99th percentile (> or = 0.01) and wi th at least one of the following ?? Symptoms of ischemia ?? New or presumed new significant ST-se gment-T wave (ST-T) changes or new left bundle branch block (LBBB) ?? Development of pathologic Q waves in the ECG ?? Imaging evidence of new loss of viabl e myocardium or new regional wall motion abnormality ?? Identification of an intracoronary th rombus by angiography or autopsy Samples for cTnT testing should be obtai prince serially upon first assessment and again 3 to 6 hours later. If the clinica l suspicion is high and previous samples have been negative an additional sample may be indicated. Reference: Third [place] Definition of Myocardial Infarction. Journal of the [place] [employer] 2012;60:1581-98 CK, Total 57 0 - 160 unit/L [facility]OR[facility]ORY Specimen Anatomical Collection Method Collection Time Receive d Time (Source) Location / / Volume Laterality Blood specimen 09/13/2017 3:29 AM 018 4:03 (specimen) EDT AM EDT Resulting Agency Comment Spec In Lab Raj Smith MD CHEMISTRY ORDERABLES Performing Organization Address City/[facility]/[place] [address] Prothrombin Time (09/13/2017 3:29 AM EDT) P athologist Signature PT 10.6 9.4 - 12.5 [facility] LABORATORY INR 1.0 [facility] Comment: An INR <2.0 indicates adequate procoagul ant activity for hemostasis in most patients without underlying bleeding dis orders, though the INR may not adequately reflect hemostatic capacity i n patients with liver disease and synthetic impairment. The recommended ta rget INR range for therapeutic anticoagulation is 2.0 ? 3.0 for most applications, though lower and higher ranges may be appropriate depending on c linical circumstances. Specimen Anatomical Collection Method Collection Time Receive d Time (Source) Location / / Volume Laterality Blood specimen 09/13/2017 3:29 AM 018 4:03 (specimen) EDT AM EDT Resulting Agency Comment Spec In Lab Raj Smith MD HEMATOLOGY ORDERABLES Performing Organization Address City/State/ZIP Code Phon e Number [place] [phone] (ABNORMAL) APTT (09/13/2017 3:29 AM EDT) athologist Signature PTT >160 25 - 37 [facility] (Critical) sec [facility] Comment: The PTT is NOT appropriate for heparin m onitoring. Use the Anti-Xa level for heparin monitoring (HEP UFH) or LMWH mon itoring (HEP LMW). A PTT less than 37 seconds generally indicates adequate hem ostasis. Called by: , Read back by: aMg hale, Date/Time:09/13/17 05:05. Called by: SE, Read back by: Lauryn solorzano, Date/Time:09/13/17 05:18. Corrected from >160 sec [CRIT] on 05:18 by Perla Ramírez. Specimen Anatomical Collection Method Collection Time Receive d Time (Source) Location / / Volume Laterality Blood specimen 09/13/2017 3:29 AM 018 4:03 (specimen) EDT AM EDT Resulting Agency Comment Spec In Lab Raj Smith MD HEMATOLOGY ORDERABLES Performing Organization Address City/[facility]/[place] [address] Hepatic Function Panel (09/13/2017 3:29 AM EDT) athologist Signature Total Protein 6.4 6.1 - 8.0 [facility] gm/dL [facility] Albumin 3.8 3.2 - 5.2 [facility] gm/dL [facility] AST 16 0 - 30 [facility] unit/L [facility] ALT 23 0 - 30 [facility] unit/L [facility] Alk Phos 65 40 - 104 [facility] [place] unit/L [facility] Total 0.4 0.2 - 1.3 [place] [place] Bilirubin mg/dL [facility] Bili, Direct 0.1 0.0 - 0.3 [place] mg/dL [facility] Specimen Anatomical Collection Method Collection Time Receive d Time (Source) Location / / Volume Laterality Blood specimen 09/13/2017 3:29 AM 018 4:03 (specimen) EDT AM EDT Resulting Agency Comment Spec In Lab Raj Smith MD CHEMISTRY ORDERABLES Performing Organization Address City/[facility]/[place] [address] pro-Brain Natriuretic Peptide (09/13/2017 3:29 AM EDT) P athologist Signature ProBNP 95 <=125 pg/mL [facility] Specimen Anatomical Collection Method Collection Time Receive d Time (Source) Location / / Volume Laterality Blood specimen 09/13/2017 3:29 AM 018 4:03 (specimen) EDT AM EDT Resulting Agency Comment Spec In Lab Raj Smith MD CHEMISTRY ORDERABLES Performing Organization Address City/[facility]/[place] [address] TSH (09/13/2017 3:29 AM EDT) P athologist Signature TSH 1.54 0.27 - 4.20 [facility] mlU/ML [facility] Specimen Anatomical Collection Method Collection Time Receive d Time (Source) Location / / Volume Laterality Blood specimen 09/13/2017 3:29 AM 018 4:03 (specimen) EDT AM EDT Resulting Agency Comment Spec In Lab Rja Smith MD CHEMISTRY ORDERABLES Performing Organization Address City/[facility]/[place] [address] Phosphorus (09/13/2017 3:29 AM EDT) P athologist Signature Phosphorus 4.0 2.5 - 4.5 [facility] mg/dL [facility] Specimen Anatomical Collection Method Collection Time Receive d Time (Source) Location / / Volume Laterality Blood specimen 09/13/2017 3:29 AM 018 4:03 (specimen) EDT AM EDT Resulting Agency Comment Spec In Lab Raj Smith MD CHEMISTRY ORDERABLES Performing Organization Address City/[facility]/ZIP Code Phon e Number [id number] Magnesium (09/13/2017 3:29 AM EDT) athologist Signature Magnesium 0.97 0.69 - 1.07 [facility] mmol/L [facility] Specimen Anatomical Collection Method Collection Time Receive d Time (Source) Location / / Volume Laterality Blood specimen 09/13/2017 3:29 AM 018 4:03 (specimen) EDT AM EDT Resulting Agency Comment Spec In Lab Raj Smith MD CHEMISTRY ORDERABLES Performing Organization Address City/State/ZIP Code Phon e Number [address] (ABNORMAL) Basic Metabolic Panel (non-fasting) (09/13/2017 3:29 AM EDT) athologist Signature Glucose Lvl 108 65 - 199 [facility] mg/dL [facility] Comment: Diabetes: >=200 mg/dL plus symp toms BUN 25 (H) 8 - 18 mg/dL [facility] LABORATORY Creatinine 0.95 0.70 - 1.20 mg/dL [facility] LABORATORY Sodium 140 135 - 145 mmol/L [facility]ORY Potassium 4.1 3.5 - 5.0 mmol/L [facility] Comment: Please note: ??Patients with WBC >100,00 0 may have falsely elevated Potassium levels. ??For accurate Potassium quantif ication in these patients send serum separator tube (gold top) for subsequent determinations. ??Contact the Clinical Chemistry Laboratory if there are any qu estions. Chloride 101 98 - 107 mmol/L [facility] CO2 24 22 - 31 mmol/L [facility] Anion Gap 15 5 - 15 mmol/L [facility] Calcium 8.9 8.5 - 10.5 mg/dL [facility] LAB[facility]ORY Estimated GFR 59 (L) >=60 mL/min/1.73 m?? [facility] Comment: The eGFR was calculated using the CKD-EP I equation. As with all creatinine based estimates of kidney function, eGFR values calculated with the CKD-EPI equation are not accurate in patients wi th acute kidney failure, extremes of body mass or the acutely ill. http://Partigi/DHnkdep http://Partigi/[facility] WATONGAnkf eGFR 68 >=60 mL/min/1.73 m?? [facility] Comment: The eGFR was calculated using the CKD-EP I equation. As with all creatinine based estimates of kidney function, eGFR values calculated with the CKD-EPI equation are not accurate in patients wi th acute kidney failure, extremes of body mass or the acutely ill. http://Partigi/Hotelscannkdep http://Partigi/[facility]ATONG[facility]kf Specimen Anatomical Collection Method Collection Time Receive d Time (Source) Location / / Volume Laterality Blood specimen 09/13/2017 3:29 AM 018 4:03 (specimen) EDT AM EDT Resulting Agency Comment Spec In Lab Raj Smith MD CHEMISTRY ORDERABLES Performing Organization Address City/State/ZIP Code Phon e Number [place] [phone] (ABNORMAL) Heparin (unfractionated) Level (09/13/2017 3:29 AM EDT) [facility] Method Time Signature Heparin UFH 1.12 IU/mL [facility] (Critical) [facility] Comment: Called by: , Read back by: Mag hale, Date/Time:09/13/17 05:05. Called by: , Read back by: Lauryn solorzano, Date/Time:09/13/17 05:18. Guidelines for therapeutic unfractionate d heparin levels are summarized below. Heparin (Anti-Xa) levels should be deter mined in a plasma sample that has been drawn 6 hours after a dose change i.e., steady-state has been reached. DRUG ?Dos ing Schedule ? Target Peak Steady-State ?Heparin (Anti-Xa) Levels (Units/mL) Unfractionated ?Continuous inf usion ?0.3-0.7 Heparin ?0.3-0.6 fo r some neurology indications Corrected from 1.12 IU/mL [CRIT] on 08/25 03/13 05:18 by Perla Ramírez. Specimen Anatomical Collection Method Collection Time Receive d Time (Source) Location / / Volume Laterality Blood specimen 09/13/2017 3:29 AM 018 4:03 (specimen) EDT AM EDT Resulting Agency Comment Spec In Lab Raj Smith MD HEMATOLOGY ORDERABLES Performing Organization Address City/State/ZIP Code Phon e Number [place] [phone] documented in this encounter Visit Diagnoses Not on filedocumented in this encounter Admitting Diagnoses Diagnosis Unstable angina Intermediate coronary syndrome documented in this encounter Administered Medications Inactive Administered Medications - up to 3 most recent administrations Medication Order MAR Action Action Date Dose Rate Site acetaminophen (TYLENOL) tablet 650 Given 09/15/2017 9:26 PM EDT 650 mg mg 650 mg, Oral, EVERY 4 HOURS PRN, Starting on 09/13/17 at 0124, Until Fri09/16/17 at 1211, Pain, Headaches, Maximum dose of acetaminophen is 4000 mg from all sources in 24 hours., Routine Given 09/15/2017 5:37 PM EDT 650 mg Given 09/14/2017 8:47 AM EDT 650 mg amLODIPine (NORVASC) tablet 2.5 mg Given 09/15/2017 5:37 PM EDT 2.5 mg 2.5 mg, Oral, DAILY, First dose (after last reorder) on 09/15/17 at 1700, Until Discontinued, Routine aspirin EC tablet 81 mg Given 09/15/2017 8:14 AM EDT 81 mg 81 mg, Oral, DAILY, First dose on 09/13/17 at 0900, Until Discontinued, Routine Given 09/14/2017 8:48 AM EDT 81 mg Given 09/13/2017 10:01 AM EDT 81 mg atorvastatin (LIPITOR) tablet 40 mg Given 09/15/2017 8:14 AM EDT 40 mg 40 mg, Oral, DAILY, First dose on 09/13/17 at 0900, Until Discontinued, Routine Given 09/14/2017 8:48 AM EDT 40 mg Given 09/13/2017 10:02 AM EDT 40 mg clopidogrel (PLAVIX) tablet 75 mg Given 09/15/2017 8:13 AM EDT 75 mg 75 mg, Oral, DAILY, First dose (after last modification) on 09/14/17 at 0900, Until Discontinued, Routine Given 09/14/2017 8:47 AM EDT 75 mg fentaNYL 50 mcg/mL multi-dose injection Given 09/15/2017 2:45 PM EDT 25 mcg ONCE PRN, Starting on Fri09/15/17 at 1445, Until Fri09/15/17 at 1714, Cath (Intra-Procedure), Routine heparin (porcine) injection 0-4,000 Given 09/13/2017 1:18 AM EDT 4,000 Units Units 0-4,000 Units, Intravenous, BOLUS PER HEPARIN PROTOCOL, Starting on Fri09/13/17 at 0027, Until Fri09/16/17 at 1211, Per Protocol, START ADJUSTMENT SCHEDULE 6 HOURS AFTER STARTING INFUSION Heparin UFH Level between 0.1 - 0.29 IU/mL: Bolus 2,000 units Heparin UFH Level less than 0.1 IU/mL: Bolus 4,000 units, Routine heparin (porcine) injection Given 09/15/2017 3:39 PM EDT 1,500 Units ONCE PRN, Starting on Fri09/15/17 at 1515, Until Fri09/15/17 at 1714, Cath (Intra-Procedure), Routine Given 09/15/2017 3:15 PM EDT 4,000 Units heparin 25,000 units in New Bag 09/15/2017 11:57 AM EDT 850 Units/ hr 17 mL/hr dextrose 5% 500 mL infusion 0-5,000 Units/hr (0-100 mL/hr), Intravenous, CONTINUOUS, Starting on Fri09/13/17 at 0045, Until Fri09/16/17 at 1211, BEGIN infusion at 1,000 units per hr (12 units/kg/hr). MAX INITIAL infusion rate is 1,000 units/hr. Target Heparin UFH Level (anti-Xa activity) = 0.3 - 0.7 IU/mL Start adjustment schedule 6 hours after starting infusion. If Heparin UFH Level is: - less than 0.1 IU/mL, administer PRN bolus and increase rate by 350 units per hr (4 units/kg/hr) - 0.1 - 0.29 IU/mL, administer PRN bolus and increase rate by 150 units per hr (2 units/kg/hr) - 0.3 - 0.7 IU/mL, No Change - 0.71 - 0.85 IU/mL, decrease rate by 100 units per hr (1 units/kg/hr) - 0.86 - 1.05 IU/mL, stop infusion for 30 minutes, then decrease rate by 150 units per hr (2 units/kg/hr) - Greater than 1.05 IU/mL, stop infusion for 60 minutes, then decrease rate by 250 units per hour (3 units/kg/hr) Repeat Heparin UFH Level 6 hours after initiating heparin. Then 6 hours after each dose adjustment. When 2 consecutive Heparin UFH Level within target range of 0.3 - 0.7 IU/mL, change Heparin UFH Level to once every 24 hours with A.M. labs while on heparin. RN to order required Heparin UFH Level - Per Protocol, Routine New Bag 09/14/2017 7:03 AM EDT 850 Units/hr 17 mL/hr Rate/Dose Change 09/13/2017 7:46 AM EDT 850 Units/hr 17 mL/hr iohexol (OMNIPAQUE) 350 mg/mL solution Given 09/15/2017 3:49 PM EDT 60 mLs ONCE PRN, Starting on Fri09/15/17 at 1549, Until Fri09/15/17 at 1714, Cath (Intra-Procedure), Routine levothyroxine (SYNTHROID) tablet 75 mcg Given 09/15/2017 8:14 AM EDT 75 mcg 75 mcg, Oral, DAILY, First dose on 09/13/17 at 0900, Until Discontinued, Routine Given 09/14/2017 8:48 AM EDT 75 mcg Given 09/13/2017 10:01 AM EDT 75 mcg lisinopril (PRINIVIL;ZESTRIL) tablet 5 m g Given 09/15/2017 8:14 AM EDT 5 mg 5 mg, Oral, DAILY, First dose on 09/13/17 at 0900, Until Discontinued, Routine Given 09/14/2017 8:49 AM EDT 5 mg Given 09/13/2017 10:02 AM EDT 5 mg metoprolol (LOPRESSOR) tablet 12.5 mg Given 09/15/2017 9:00 AM EDT 12.5 mg 12.5 mg, Oral, EVERY 12 HOURS SCHEDULED (2 times per day), First dose on 09/13/17 at 0045, Until Discontinued, Hold for heart heart rates < 50 BPM, Routine Given 09/14/2017 9:08 PM EDT 12.5 mg Given 09/13/2017 9:38 PM EDT 12.5 mg midazolam (PF) (VERSED) 1 mg/mL multi-dose Given 09/15/2017 2:44 PM EDT 1 mg injection ONCE PRN, Starting on Fri09/15/17 at 1444, Until Fri09/15/17 at 1714, Cath (Intra-Procedure), Routine nitroGLYcerin 100 mcg/mL intracoronary Given 09/15/2017 3:21 PM EDT 150 mcg dilution ONCE PRN, Starting on Fri09/15/17 at 1510, Until Fri09/15/17 at 1715, Cath (Intra-Procedure), Routine Given 09/15/2017 3:10 PM EDT 75 mcg pantoprazole (PROTONIX) tablet 40 mg Given 09/15/2017 1:34 PM EDT 40 mg 40 mg, Oral, DAILY, First dose on Fri09/15/17 at 1230, Until Discontinued, DO NOT CRUSH OR OPEN, Routine PARoxetine (PAXIL) tablet 30 mg Given 09/16/2017 6:35 AM EDT 30 mg 30 mg, Oral, EVERY MORNING, First dose on 09/13/17 at 0700, Until Discontinued, Routine Given 09/15/2017 8:12 AM EDT 30 mg Given 09/14/2017 6:28 AM EDT 30 mg sodium chloride 0.9 % flush 5 mL Given 09/15/2017 9:00 PM EDT 5 mLs 5 mL, Intravenous, 2 TIMES DAILY, First dose on 09/13/17 at 0145, Until Discontinued, Routine Given 09/15/2017 8:15 AM EDT 5 mLs Given 09/14/2017 9:12 PM EDT 5 mLs tacrolimus (PROTOPIC) 0.1 % ointment Given 09/15/2017 9:00 PM EDT Topical (Top), 2 TIMES DAILY, First dose on 09/13/17 at 0045, Until Discontinued Given 09/15/2017 8:15 AM EDT Given 09/14/2017 9:12 PM EDT verapamil (ISOPTIN) injection Given 09/15/2017 3:11 PM EDT 1.25 mg ONCE PRN, Starting on Fri09/15/17 at 1511, Until Fri09/15/17 at 1715, Administer over 2 Minutes, Cath (Intra-Procedure) documented in this encounter Active and Recently Administered Medications Times are shown in EDT. Scheduled Medication Order 09/14/2017 09/15/2017 09/16/2017 amLODIPine (NORVASC) tablet 2.5 mg 1737 (Given - Provider: Aurea Liu RN) 0900 (Due) 2.5 mg, Oral, DAILY, First dose on Fri at 1700, Until Discontinued, Routine aspirin EC tablet 81 mg 0848 (Given - Provider: Kat mullen RN) 0814 (Given - Provider: Aurea Liu RN)1554 ([facility] Hold - Provider: Admin Adt - Reason: Transfer to a Procedural area)171 ([facility] Unhold - Provider: Admin Adt) 0900 (Due - Provider: Admin Adt) 81 mg, Oral, DAILY, First dose on Sat at 0900, Until Discontinued, Routine atorvastatin (LIPITOR) tablet 40 mg 0848 (Given - Prov ider: Kat Bobo RN) 0814 (Given - Provider: Aurea Riggs ams, RN)1554 ([facility] Hold - Provider: Admin Adt - Reason: Transfer to a Procedural area)1715 ([facility] Unhold - Provider: Admin Adt) 0900 (Due - Provider: Admin Adt) 40 mg, Oral, DAILY, First dose on Sat at 0900, Until Discontinued, Routine clopidogrel (PLAVIX) tablet 75 mg 0847 (Given - Provider: Griffin RN) 0813 (Given - Provider: Aurea Liu RN)1554 ([facility] Hold - Provider: Admin Adt - Reason: Transfer to a Procedural area)1715 ([facility] Unhold - Provider: Admin Adt) 0900 (Due - Provider: Admin Adt) 75 mg, Oral, DAILY, First dose on Sun at 0900, Until Discontinued, Routine levothyroxine (SYNTHROID) tablet 75 mcg 0848 (Given - Provider: Kat Bobo, RN) 0814 (Given - Provider: Aurea Riggs ams, RN)1554 ([facility] Hold - Provider: Admin Adt - Reason: Transfer to a Procedural area)1715 ([facility] Unhold - Provider: Admin Adt) 0900 (Due - Provider: Admin Adt) 75 mcg, Oral, DAILY, First dose on Sat at 0900, Until Discontinued, Routine lisinopril (PRINIVIL;ZESTRIL) tablet 5 mg 0849 (Given - Provider: Kat Bobo RN) 0814 (Given - Provider: Aurea Riggs ams RN)1554 ([facility] Hold - Provider: Admin Adt - Reason: Transfer to a Procedural area)1715 ([facility] Unhold - Provider: Admin Adt) 0900 (Due - Provider: Admin Adt) 5 mg, Oral, DAILY, First dose on Sat 08/25 03/13 at 0900, Until Discontinued, Routine metoprolol (LOPRESSOR) tablet 12.5 mg 0900 (Hold - Pro vider: Kat Bobo RN - Reason: Contraindicated)2108 (Given - Provider: Susana Bradley RN) 0900 (Given - Provider: Aurea Liu RN)1554 ([facility] Hold - Provider: Admin Adt - Reason: Transfer to a Procedural area)171 ([facility] Unhold - Provider: Admin Adt) 0900 (Due - Provider: Admin Adt) 12.5 mg, Oral, EVERY 12 HOURS SCHEDULED (2 times per day), First dose on 09/13/17 at 0045, Until Discontinued, Hold for heart heart rates < 50 BPM, Routine 2100 (Not Given - Provider: Mahnaz Petty RN - Reason: Order parameters not met - Comment: HR 49) pantoprazole (PROTONIX) tablet 40 mg 133 4 (Given - Provider: Aurea Liu RN)1554 ([facility] Hold - Provider: Admin Adt - Reason: Transfer to a Procedural area)1715 ([facility] Unhold - Provider: Admin Adt) 0900 (Due - Provider: Admin Adt) 40 mg, Oral, DAILY, First dose on Mon at 1230, Until Discontinued, DO NOT CRUSH OR OPEN, Routine PARoxetine (PAXIL) tablet 30 mg 0628 (Given - Provider: Mag Bradley, BRANDEN) 0812 (Given - Provider: Aurea Liu, RN)1554 ([facility] Hold - Provider: Admin Adt - Reason: Transfer to a Procedural area)171 ([facility] Unhold - Provider: Admin Adt) 0635 (Given - Provider: Yuli Valdez, BRANDEN) 30 mg, Oral, EVERY MORNING, First dose o n 09/13/17 at 0700, Until Discontinued, Routine sodium chloride 0.9 % flush 5 mL 0853 (Given - Provide r: Kat Bobo, BRANDEN)2111 (Given - Provider: Susana Bradley, BRANDEN) 0815 (Given - Provider: Aurea Liu RN)155 ([facility] Hold - Provider: Admin Adt - Reason: Transfer to a Procedural area)171 ([facility] Unhold - Provider: Admin Adt)2100 (Given - Provider: Mahnaz Petty, BRANDEN) 0900 (Due - Provider: Admin Adt) 5 mL, Intravenous, 2 TIMES DAILY, First dose on 09/13/17 at 0145, Until Discontinued, Routine tacrolimus (PROTOPIC) 0.1 % ointment 0900 (Not Given - Provider: Kat Bobo RN - Reason: Patient/family refused)2111 (Given - Provider: Susana Bradley RN) 0815 (Given - Provider: Aurea Riggs ams, RN)155 ([facility] Hold - Provider: Admin Adt - Reason: Transfer to a Procedural area)171 ([facility] Unhold - Provider: Admin Adt)2100 (Given - Provider: Mahnaz Petty RN) 0900 (Due - Provider: Admin Adt) Topical (Top), 2 TIMES DAILY, First dose on 09/13/17 at 0045 Continuous Medication Order 09/14/2017 09/15/2017 09/16/2017 heparin 25,000 units in dextrose 5% 500 mL infusion(Li nked Group 1) 0703 (New Bag - Provider: Susana F Bradley, RN) 1157 (New Bag - Provider: Aurea Liu RN)1554 ([facility] Hold - Provider: Admin Adt - Reason: Transfer to a Procedural area)1715 ([facility] Unhold - Provider: Admin Adt) 0-5,000 Units/hr (0-100 mL/hr), Intraven ous, at 0-100 mL/hr, CONTINUOUS, Starting 09/13/17 at 0045, Until 09/16/17 at 1211, BEGIN infusion at 1,000 units per hr (12 units/kg/hr). MAX INITIAL infus ion rate is 1,000 units/hr. Target Hepar in UFH Level (anti-Xa activity) = 0.3 - 0.7 IU/mL Start adjustment schedule 6 hours after starting infusion. If Heparin UFH Level is: - less than 0.1 IU/mL, admin ister PRN bolus and increase rate by 350 units per hr (4 units/kg/hr) - 0.1 - 0.29 IU/mL, administer PRN bolus and increase rate by 150 units per hr (2 units/kg/hr) - 0.3 - 0.7 IU/mL, No Change - 0.71 - 0.85 IU/mL, decrease rate by 100 units per hr (1 units/kg/hr) - 0.86 - 1.05 IU/mL, stop infusion for 30 minutes, then decrease rate by 150 units per hr (2 units/kg/hr) - Greater than 1.05 IU/mL, stop i nfusion for 60 minutes, then decrease ra te by 250 units per hour (3 units/kg/hr) Repeat Heparin UFH Level 6 hours after initiating heparin. Then 6 hours after each dose adjustment. When 2 consecutive He ethan UFH Level within target range of 0 .3 - 0.7 IU/mL, change Heparin UFH Level to once every 24 hours with A.M. labs while on heparin. RN to order required Heparin UFH Level - Per Protocol, Routine sodium chloride 0.9% infusion () 1605 (New Bag - Provider: Dagmar Sexton RN) 125 mL/hr, at 125 mL/hr, Intravenous, CO NTINUOUS, Starting 09/15/17 at 1630, Until 09/15/17 at 1829, Recovery (Recovery-Hospital Unit) PRN Medication Order 09/14/2017 09/15/2017 09/16/2017 acetaminophen (TYLENOL) tablet 650 mg 0847 (Given - Pr ovider: Kat Bobo RN) 1554 ([facility] Hold - Provider: Admin Adt - R grace: Transfer to a Procedural area)1715 ([facility] Unhold - Provider: Admin Adt)1737 (Given - Provider: Aurea Liu, BRANDEN) 650 mg, Oral, EVERY 4 HOURS PRN, Startin g 09/13/17 at 0124, Until Fri09/16/17 at 1211, Pain, Headaches, Maximum dose of acetaminophen is 4000 mg from all sources in 24 hours., Routine 2125 (Given - Provider: Mahnaz Petty RN - Comment: name and medication verified. scanner not working.) fentaNYL 50 mcg/mL multi-dose injection (CANCELED) 1445 (Given - Provider: Navneet Contreras, BRANDEN) ONCE PRN, Starting Fri09/15/17 at 1445, Until Fri09/15/17 at 1714, Cath (Intra- Procedure), Routine heparin (porcine) injection 0-4,000 Units(Linked Group 1) 1554 ([facility] Hold - Provider: Admin Adt - Reason: Transfer to a Procedural area)1715 ([facility] Unhold - Provider: Admin Adt) 0-4,000 Units, Intravenous, BOLUS PER HE ETHAN PROTOCOL, Starting 09/13/17 at 0027, Until Fri09/16/17 at 1211, Per Protocol, START ADJUSTMENT SCHEDULE 6 HOURS AFTER STARTING INFUSION Heparin UFH L evel between 0.1 - 0.29 IU/mL: Bolus 2,0 00 units Heparin UFH Level less than 0.1 IU/mL: Bolus 4,000 units, Routine heparin (porcine) injection (CANCELED) 1 515 (Given - Provider: Navneet Contreras, BRANDEN)1539 (Given - Provider: Navneet Contreras, BRANDEN) ONCE PRN, Starting Fri09/15/17 at 1515, Until Fri09/15/17 at 1714, Cath (Intra- Procedure), Routine iohexol (OMNIPAQUE) 350 mg/mL solution (CANCELED) 1549 (Given - Provider: Navneet Contreras, BRANDEN) ONCE PRN, Starting Fri09/15/17 at 1549, Until Fri09/15/17 at 1714, Cath (Intra- Procedure), Routine lidocaine (XYLOCAINE) 10 mg/mL (1 %) injection 3 mg 1554 ([facility] Hold - Provider: Admin Adt - Reason: Transfer to a Procedural area)1715 ([facility] Unhold - Provider: Admin Adt) 3 mg (0.3 mL), Subcutaneous, ONCE PRN, 1 dose, Starting 09/13/17 at 0124, Until Tu09/16/17 at 1211, for discomfort with PIV insertion, Routine midazolam (PF) (VERSED) 1 mg/mL multi-dose injection (CANCEL ED) 1444 (Given - Provider: Navneet Contreras, RN) ONCE PRN, Starting Fri09/15/17 at 1444, Until Fri09/15/17 at 1714, Cath (Intra- Procedure), Routine nitroGLYcerin (NITROSTAT) SL tablet 0.3 mg 1554 ([facility] Hold - Provider: Admin Adt - Reason: Transfer to a Procedural area)171 ([facility] Unhold - Provider: Admin Adt) 0.3 mg, Sublingual, EVERY 5 MIN PRN, Sta rting 09/13/17 at 0027, Until Fri09/16/17 at 1211, Chest pain, SL nitroglycerin may be repeated every 5 minutes as needed up to 3 doses, Routine nitroGLYcerin 100 mcg/mL intracoronary dilution (CANCELED) 1510 (Given - Provider: Navneet Contreras, RN)1521 (Given - Provider: Navneet Contreras, RN) ONCE PRN, Starting Fri09/15/17 at 1510, Until Fri09/15/17 at 1715, Cath (Intra- Procedure), Routine sodium chloride 0.9 % flush 5-20 mL 1554 ([facility] Hold - Provider: Admin Adt - Reason: Transfer to a Procedural area)1715 ([facility] Unhold - Provider: Admin Adt) 5-20 mL, Intravenous, EVERY 1 MIN PRN, S tarting 09/13/17 at 0124, Until Fri09/16/17 at 1211, flush, Flush pertains to all indwelling lines. Flush per protocol found in the job aid using the link provided on this medication record., Routine verapamil (ISOPTIN) injection (CANCELED) 151 (Given - Provider: Navneet Contreras, BRANDEN) ONCE PRN, Starting 09/15/17 at 1511, Until 09/15/17 at 1715, Administer over 2 Minutes, Cath (Intra-Procedure) Linked Groups Order Group 1: heparin (porcine) injection 0-4,000 UnitsJump to med 0-4,000 Units, Intravenous, [facility], Starting 09/13/17 at 0027, Until Tu09/16/17 at 1211, Per Protocol
START ADJUSTMENT SCHEDULE 6 HOURS AFTER STARTING INFUSION&n bsp; Heparin UFH Level between 0.1 - 0.29 IU/mL: Bolus 2,000 units Heparin UFH Level less than 0.1 IU/mL: Bolus 4,000 units
Routine And heparin 25,000 units in dextrose 5% 500 mL infusionJump to med 0-5,000 Units/hr (0-100 mL/hr), Intraven ous, at 0-100 mL/hr, CONTINUOUS, Starting 09/13/17 at 0045, Until Fri09/16/17 at 1211
BEGIN infusion at 1,000 units per hr (12 units/kg/hr). MAX INITI AL infusion rate is 1,000 units/hr. &nbs p; Target Heparin UFH Level (anti- Xa activity) = 0.3 - 0.7 IU/mL Start adjustment schedule 6 hours after starting infusion. &amp ;nbsp; If Heparin UFH Level is: &nb sp; - less than 0.1 IU/mL, administer PRN bolus and increase rate by 350 units per hr (4 units/kg/hr) - 0.1 - 0.29 IU/mL, administer ND N bolus and increase rate by 150 units p er hr (2 units/kg/hr) - 0.3 - 0.7 IU/mL, No Change - 0.71 - 0.85 IU/mL, decrease rate by 100 units per hr (1 units/kg/hr) - 0.86 - 1. 05 IU/mL, stop infusion for 30 minutes, then decrease rate by 150 units per hr (2 units/kg/hr) - Greater than 1.05 IU/mL, stop infusion for 60 minutes, then decrease rate by 250 units per hour (3 units/kg/hr) Repeat Heparin UFH Level 6 hours after initiating heparin. Then 6 hours after each dose adjustment. When 2 consecutive Heparin UFH Level within ta rget range of 0.3 - 0.7 IU/mL, change He ethan UFH Level to once every 24 hours with A.M. labs while on heparin. RN to order required Heparin UFH Level - Per Protocol
Routine documented in this encounter Care Teams Oral And Maxillofacial Surgeon Relationship Specialty Start Date End Date Kristyn Whitehead MD PCP - General 01/16/10 [address] [place] [address] documented as of this encounter
--- OUTSIDE RECORDS SUMMARY | 2021-08-22 09:43 | XMS_ITS | Encounter Summary ---
:1945 Author Organization [facility] Address [address] [place] [address] Care Team Providers Name Role Phone Kristyn Whitehead MD Primary Care Provider Reason for Visit Auth/Cert Specialty Diagnoses / Procedures Referred By Contact Refer red To Contact Diagnoses Unstable angina [place] Referral ID Status Reason Start Date Expiration Date Visits Requ ested Visits Authorized [id number] 1 1 Encounter Details Date Type Department Care Team Description 09/12/2017 - Hospital Encounter Cardiac Special Helisch, Raj, Cor onary artery 09/16/2017 Care Unit Felicia WHITE disease, angina [facility] [address] unspecified, [facility] CARDIOLOGY unspecifi ed vessel Drive DEPT. or lesion type, [place], [place] unspecified whe ther [id number] samish or [phone] transplanted he art (Work) Social History Tobacco Use Types Packs/Day Years Used Date Former Smoker Smokeless Tobacco: Never Used Sex Assigned at Date Recorded Not on file documented as of this encounter Last Filed Vital Signs Vital Sign Reading Time Taken Comments Blood Pressure 115/78 09/16/2017 8:16 AM EDT Pulse 55 09/16/2017 8:16 AM EDT Temperature 37.2 ??C (99 ??F) 09/16/2017 8:16 AM EDT Respiratory Rate 18 09/16/2017 8:16 AM EDT Oxygen Saturation 97% 09/16/2017 8:16 AM EDT Inhaled Oxygen Concentration - - Weight 82.4 kg (181 lb 10.5 oz) 09/16/2017 6:21 AM EDT Height 165.1 cm (5' 5) 09/12/2017 11:05 PM EDT Body Mass Index 30.23 09/12/2017 11:05 PM EDT documented in this encounter Discharge Summaries Eliecer Mckeon - 09/16/2017 9:11 AM EDT Discharge Summary Patient Name: Emani Delong Patient Age: 72 y.o. Language: Sinhala Race: White Ethnicity: Not nor Admit date: 09/12/2017 Discharge date and time: 09/16/2017 12:05 PM Attending Physician: No att. providers found Discharge Physician: Eliecer Mckeon MD ID: 72 y/o woman with hx of known CAD s/p PCI in 2009 to RCA (DIANA) and 2015 to LAD (DIANA) who p/w atypical chest [...] your inpatient physician through the [facility] Pickle Pumper . Have the Pickle Pumper page the S1 resident carton maker at the [phone] pager. Discharge Diagnoses (Hospital Problems) and Secondary [...] in 2009 and DIANA to the LAD (2015),??who presented to OSH with chest discomfort. She [...] no further chest pain or pressure. Her bicycle repairman called her with some results regarding ongoing workup for some skin findings she previously had on her hands who instructed her to present to the ED after hearing about her symptoms. ?? On review of symptoms she does report two episodes of sharp left shoulder pain in the past two weeks, one while sitting at rest in Restaurant ?? She presented to [facility] where EKG showed new wave inversions in [...] ??? DTaP 06/18/2007 ??? Influenza Vaccine (Novel) [id number], Injectable 12/25/2008 ??? Influenza Vaccine, Whole 12/25/2008 [...] appointments: During 8am-5pm Friday through Friday call [phone] to speak with a nurse in the cardiology clinic All other times call [phone] and ask to speak to the epic willow specialist carton maker. Home oxygen therapy: None Arrangements for VNA/home care: None Follow up Appointments: Please schedule a follow up appointment with your primary care physician for 1-2 weeks from discharge You have an appointment already scheduled with your mapping pilot, Dr. Good in 1 month, please follow up with him PCP: Kristyn Whitehead MD at [phone] Your Inpatient Doctor(s) at [facility]: Raj Smith MD - Attending physician Eliecer Mckeon MD - Fellow Your Primary Care Provider: Kristyn Whitehead MD [address] / [place] [address] For questions regarding issues relating to your hospitalization on the Hospital Medicine Service, please contact your inpatient physician through the [facility] Pickle [facility]umper [phone]. Issues after hours and on weekends will be handled by the Hospitalist staff on-call. General Instructions None Discharge References/Attachments None documented in this encounter Discharge Instructions Patient InstructionsAmbikaJosué olmsteadleslie Llanos - 09/16/2017 1:52 AM EDT Patient Instructions [...] appointments: During 8am-5pm Friday through Friday call [phone] to speak with a nurse in the cardiology clinic All other times call [phone] and ask to speak to the epic willow specialist carton maker. Home oxygen therapy: None Arrangements for VNA/home care: None Follow up Appointments: Please schedule a follow up appointment with your primary care physician for 1-2 weeks from discharge You have an appointment already scheduled with your mapping pilot, Dr. Good in 1 month, please follow up with him PCP: Kristyn Whitehead MD at [phone] Your Inpatient Doctor(s) at [facility]: Raj Smith MD - Attending physician Eliecer Mckeon MD - Fellow Your Primary Care Provider: Kristyn Whitehead MD [address] / [place] [address] For questions regarding issues relating to your hospitalization on the Hospital Medicine Service, please contact your inpatient physician through the [facility] Pickle [facility]umper [phone]. Issues after hours and on weekends will be handled by the Hospitalist staff on-call. documented in this encounter Medications at Time of Discharge Medication Sig Dispensed Refills Start Date End Date EPINEPHrine 0.3 mg/0.3 Inject into the 0 09/24/19 13 mL Auto-Injector muscle. vit A,C,K-tsxq-agdrrg Take by mouth. 0 09/23/2012 (Ocuvite PreserVision) [...] as of this encounter Progress Notes Kenisha Porter RN - 09/16/2017 9:11 AM EDT IV [...] date for complete assessment and plan Mahnaz Petty, RN - 09/16/2017 6:00 AM EDT VSS. [...] Vizcaino MD, PGY-2 Cardiology Service, Pager # [phone] Eliecer Mckeon - 09/15/2017 8:24 AM EDT ASA 3 Mallampati 2 Jayda Pope - 09/15/2017 7:00 AM EDT Inpatient Cardiology Progress Note Patient Name: Emani Delong Date of Admission: 09/12/2017 ( Hospital Day 2 days ) Service: S1 ID: 72??year old woman??with history of hypothyroidism, CAD s/p DIANA??to the RCA in 2009 and DIANA to the LAD (10/2015) who presented in transfer from [facility] with concern for unstable angina. Active Problems: [...] LAD (10/2015) who presented in transfer from [facility] with concern for unstable angina. EKG and [...] protonix 40mg today - Diet: [facility] - Access: peripheral IV - Dispo: to home - code status: Full Code Jayda Pope MD, PGY-1 Cardiology S1, Pager [phone] Associated attestation - Raj Smith MD - [...] Inpatient Cardiology Progress Note Patient Name: Emani Delong Date of Admission: 09/12/2017 ( Hospital Day 1 day ) Service: S1 ID: 72??year old woman??with history of hypothyroidism, CAD s/p DIANA??to the RCA in 2009 and DIANA to the LAD (10/2015) who presented in transfer from [facility] with concern for unstable angina. Active Problems: [...] LAD (10/2015) who presented in transfer from [facility] with concern for unstable angina. Admitted for [...] ppx: not indicated - Diet: [facility]; NPO at MS for cardiac cath in AM - Access: peripheral IV - code status: Full Code Nirmal Vizcaino MD, PGY-2 Cardiology S1, Pager [phone] Associated attestation - Raj Smith MD - [...] note as below which reflects our discussion. Hediy Elizabeth MD - 09/13/2017 1:50 PM EDT Inpatient Cardiology Progress Note Patient Name: Emani Eduardo Delong Date of Admission: 09/12/2017 ( Hospital Day 0 days ) Service: S1 ID: 72??year old woman??with history of hypothyroidism, CAD s/p DIANA to the RCA in 2009 and DIANA to the LAD (10/2015) Presenting in transfer from [facility] with concern for unstable angina. Active Problems: [...] BUN 25* CREATININE 0.95 Recent Labs 09/13/17 0329 AST 16 ALT 23 ALKPHOS 65 BILITOT 0.4 BILIDIR 0.1 Recent Labs 09/13/17 0329 CALCIUM 8.9 MAGNESIUM 0.97 PHOS 4.0 Recent Labs 09/13/17 0329 INR 1.0 PT 10.6 PTT >160* Recent Labs 09/13/17 0955 09/13/17 0329 CK 50 57 TROPONINT <0.01 <0.01 No results for input(s): POCGLU in the last 168 hours. ASSESSMENT: 72??year old woman??with history of hypothyroidism, CAD s/p DIANA to the RCA in 2009 and DIANA to the LAD (10/2015) Presenting in transfer from [facility] with concern for unstable angina. Patient has [...] at midnight - Code Status: Full - [facility] Elizabeth MD Internal Medicine, PGY-1 Cardiology S1 (Pager [phone]) Associated attestation - Raj Smith MD - [...] Cardiology Admission History and Physical Patient Name: Emani Delong Service: Cardiology S1 # [id number] Team Responsible Attending: Dr Sarah MD PCP: Kristyn Whitehead MD PCP phone #: [phone] ID/Chief Complaint: Unstable Angina Unspecified Eczema HLD [...] no further chest pain or pressure. Her bicycle repairman called her with some results regarding ongoing workup for some skin findings she previously had on her hands who instructed her to present to the ED after hearing about her symptoms. On review of symptoms she does report two episodes of sharp left shoulder pain in the past two weeks, one while sitting at rest in [place] She presented to [facility] where EKG showed new wave inversions in [...] Illicits: Denies Living Situation: Splits time between [facility] and [place]. Lives in a house in [place] while here with her . 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 Vitals: Last value [...] in the last 7068 hours. Invalid input(s): [id number] Heme: No results for input(s): LDH, HAPTOGLOBIN, [...] in 2009 and DIANA to the LAD () Presenting in transfer from [facility] with concern for unstable angina. Patient has known history of CAD with history of 2 PCI's and is presenting with dyspnea at rest and new T wave inversions on EKG. Presentation is consistent with unstable angina, will admit for further management. PLAN: Admit to Cardiology S1 Team Pager # [phone] # Unstable Angina - Admit to - [...] Status: Full - Dispo:Admit to Cardiology S1 #[id number] Rose Justice MD PGY2 Internal Medicine Cardiology S1 Pager: [phone] 09/12/2017 documented in this encounter Miscellaneous Notes Op Note - Cash Manjarrez MD - 09/15/2017 4:22 PM EDT [facility] Operative Note Patient Name: Emani Delong : [id number] MR#: [id number] Case Date: 09/15/2017 Surgeon: Surgeon(s) and Role: * Cash Manjarrez MD - Primary * Yang Márquez PA - Physician Patient Access Associate Preoperative diagnosis: ?CAD Postoperative diagnosis: CAD present, [...] evident early complications. Results discussed with service mapping pilot Dr Smith, and with the patient and their family. Prior to initiation of the procedure, the patient's frailty score was determined to be: vulnerable (see definitions below). A time-out was conducted prior to the start of the procedure to verify the correct patient and procedure, procedure location, and all relevant critical information. Full report to follow. CASH MANJARREZ MD Definitions from [place] Study of Health and Aging Clinical Frailty [...] with all outside activities and with minor design engineer agricultural equipment. Mayneed help with bathing and dressing. 7: [...] EDT Office of Care Management Initial Assessment Supervisor Nutritional Yeast JULIA ESPINAL RN,MA,ACM reviewed record and discussed patient with Care Team. Source of Information: team,eD, interview w ; pt was sound asleep both times I went to see her pre procedure Introduced self/reviewed role; services accepted. Reason for Hospitalization: No past medical history on file. Hospitalizations Within the Past 30 Days: no; other than transfer to [facility] for this adm from [facility] Anticipated Length Of Stay (If known): 2-3 [...] Health/Prescription Coverage: Primary Insurance: MEDICARE Secondary Insurance: [employer] Prescription Coverage: says yes Medicare D Preferred Pharmacy: not discussed Other: NA Primary Care Provider: Kristyn Whitehead MD [phone] Patient/Caregiver Goals of Treatment: per have her home again Potential Needs for Transition of Care: Rehab/SNF: NA Home Health: discussed w availability of home RN services and he declines at this time DME: none Dialysis: na Community Resources: NA Transportation: if d/c this freddy will take; if tomorrow pt's sister in law will pickle pumper Other: none Anticipated Barriers to Discharge/Special Considerations: none Assessment: Pt w support, and means for medication coverage. Anticpate home without services either this freddy or in AM pending cardiac cath outcome. Plan: A member of the Care Management team will continue to monitor progress, follow for continuity of care and assist with transition of care planning. Supervisor Nutritional Yeast JULIA ESPINAL RN,MA,ACM for Pager: [phone] or [phone] Plan of Care - Kat Bobo RN [...] 0000. Slept between care. 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 INDIVIDUALIZED FALL PREVENTION INTERVENTIONS: Patient-specific fall risk [...] 10/31/2021 Office Visit Rheumatology Bert Loera MD [facility] RHEUMATOLOGY [place], [place] 0[address] (Wo rk) documented as of [...] (WITH DIFF) Routine 09/16/2017 3:46 AM EDT LOADING UNIT TOOL SETTER SCAN 09/16/2017 12:00 Res ults for this [...] unspecified vessel or lesion type, unspecified whether samish or transplanted heart CARDIAC ENZYMES STAT 09/14/2017 8:44 Results f or this ([facility]) AM EDT procedure are i n the results section. EKG 12-LEAD STAT 09/14/2017 8:06 Coronary artery Results f or this AM EDT disease, angina procedure ar e in presence the results unspecified, section. unspecified vessel or lesion type, unspecified whether samish or transplanted heart HEPARIN STAT 09/14/2017 5:36 [...] 3:52 Results f or this ([facility]) PM EDT procedure are i n the results section. HEPARIN STAT 09/13/2017 2:10 Results for this (UNFRACTIONATED) LEVEL PM EDT proce dure are in the results section. ECHOCARDIOGRAM COMPLETE Routine 09/13/2017 11:28 Coronary frida ry Results for this W CONTRAST AM EDT disease, angina procedure ar e in presence the results unspecified, section. unspecified vessel or lesion type, unspecified whether samish or transplanted heart CARDIAC ENZYMES Routine 09/13/2017 9:55 Results f or this ([facility]) AM EDT procedure are i n the [...] 3:29 Results f or this ([facility]) AM EDT procedure are i n the [...] Results Differential, Automated (09/16/2017 3:46 AM EDT) athologist Signature Neutrophils % 58.7 % [facility] Neutr Abs (ANC) 4.63 1.70 - [facility] 6.10 [facility] x10(3)/[facility] Lymphocytes % 31.4 % [facility] Lymphocytes Abs 2.5 0.9 - 3.2 [facility] x10(3)/[facility] LABORATORY Monocytes % 6.3 % [facility] Monocyte Abs 0.5 0.3 - 0.9 [facility] x10(3)/[facility]ORATORY Eosinophils % 2.8 % [facility] Eosinophils Abs 0.2 0.0 - 0.4 [facility] x10(3)/[facility]OR[facility] Basophils % 0.4 % [facility] Basophils Abs 0.0 0.0 - 0.1 [facility] x10(3)/[facility] LABORATORY Immature Gran % 0.40 % [facility] Comment: Immature granulocytes(IG's)percentage an d absolute count will include metamyelocytes, myelocytes, and promyelo cytes. Blood smears from CBCs yielding IG's will be scanned manually for concmarianna danshanell. If this scan disagrees with the automated IG or if promyelocytes are not ed, a manual differential will be performed. Anuja Gran Abs 0.03 0.00 - 0.04 x10(3)/[facility] Specimen Anatomical Collection Method Collection Time Receive d Time (Source) Location / / Volume Laterality Blood specimen 09/16/2017 3:46 AM 018 3:59 (specimen) EDT AM EDT Resulting Agency Comment Spec In Lab Rose Justice MD HEMATOLOGY ORDERABLES Performing Organization Address City/State/[place] [address] (ABNORMAL) Hemogram (09/16/2017 3:46 AM EDT) Analysis Performed At Patho logist Time Signature WBC 7.9 4.0 - 9.5 [facility] x10(3)/[facility] RBC 4.76 4.00 - [facility] x10(6)/[facility] Hemoglobin 15.3 11.7 - [facility] 15.5 gm/dL [facility] Hematocrit 45.4 35.7 - [facility] 45.8 % [facility] MCV 95.4 (H) 82.6 - [facility] 94.4 [facility] LABORATORY MCH 32.1 (H) 27.1 - [facility] 32.[address] [facility] MCHC 33.7 31.7 - [facility] 35.0 gm/dL [facility] Platelets 245 145 - 357 [facility] x10(3)/[facility] RDWSD 44.7 37.0 - [facility] 46.0 [facility] LABORATORY RDWCV 12.7 11.5 - [facility] [place] 14.1 % [facility]ORY MPV 9.0 7.6 - 12.9 [facility] LABORATORY nRBC % Auto 0.0 % [facility] nRBC Abs Auto 0.000 0.000 - [facility] [place] 0.000 [facility] x10(3)/[facility] LABORATORY Specimen Anatomical Collection Method Collection Time Receive d Time (Source) Location / / Volume Laterality Blood specimen 09/16/2017 3:46 AM 018 3:59 (specimen) EDT AM EDT Resulting Agency Comment Spec In Lab Rose Justice MD HEMATOLOGY ORDERABLES Performing Organization Address City/State/[place] [address] (ABNORMAL) BMP w/fasting Glucose (09/16/2017 3:46 AM EDT) athologist Signature Glucose 98 65 - 99 [facility] Fasting mg/dL [facility] Comment: ?Fasting* Glucose Interpretive C riteria [...] of Diabetes Mellitus, Position Statement from the [place] Diabetes Association. ??Diabete s Care, Volume 33, Supplement 1, Feb 2009 BUN 28 (H) 8 - 18 mg/dL [facility] Creatinine 1.17 0.70 - 1.20 mg/dL [facility] Sodium 139 135 - 145 mmol/L [facility] Potassium 4.6 3.5 - 5.0 mmol/L [facility] Comment: Please note: ??Patients with WBC >100,00 0 may have falsely elevated Potassium levels. ??For accurate Potassium quantif ication in these patients send serum separator tube (gold top) for subsequent determinations. ??Contact the Clinical Chemistry Laboratory if there are any qu estions. Chloride 102 98 - 107 mmol/L [facility] CO2 25 22 - 31 mmol/L [facility] Anion Gap 12 5 - 15 mmol/L [facility] Calcium 9.1 8.5 - 10.5 mg/dL [facility] Estimated GFR 46 (L) >=60 mL/min/1.73 m?? [facility] Comment: The eGFR was calculated using the CKD-EP I equation. As with all creatinine based estimates of kidney function, eGFR values calculated with the CKD-EPI equation are not accurate in patients wi th acute kidney failure, extremes of body mass or the acutely ill. http://[employer]/FindMySongnkdep http://[employer]/FindMySongnkf eGFR 53 (L) >=60 mL/min/1.73 m?? [facility] Comment: The eGFR was calculated using the CKD-EP I equation. As with all creatinine based estimates of kidney function, eGFR values calculated with the CKD-EPI equation are not accurate in patients wi th acute kidney failure, extremes of body mass or the acutely ill. http://[employer]/DHnkdep http://[employer]/DHnkf Specimen Anatomical Collection Method Collection Time Receive d Time (Source) Location / / Volume Laterality Blood specimen 09/16/2017 3:46 AM 018 3:59 (specimen) EDT AM EDT Resulting Agency Comment Spec In Lab Raj Smith MD CHEMISTRY ORDERABLES Performing Organization Address City/State/[place] [address] Prothrombin Time (09/16/2017 3:46 AM EDT) P athologist Signature PT 9.8 9.4 - 12.5 [facility] LABORATORY INR 0.9 [facility] Comment: An INR <2.0 indicates [...] Smith MD HEMATOLOGY ORDERABLES Performing Organization Address [facility]/State/[place] [address] SCAN DOC: LOADING UNIT TOOL SETTER (09/16/2017 12:00 AM EDT) Narrative 09/16/2017 12:00 AM EDT This result has an attachment that is no t available. Ordered by an unspecified provider. Scanning Provider MEDIA MGR SCAN EXT ORDR/RSLT CARDIAC CATHETERIZATION (09/15/2017 4:00 PM EDT) Specimen (Source) Anatomical Location Collection Method / Collectio n Time Received Time / Laterality Volume Narrative CARDIOMAC SYSTEM - 09/18/2017 7:24 PM ED T ?[facility] ? Cardiac Cathete rization/Intervention Report ? Patient Name: Emani Delong Eduardo. ? Procedure Date: 09/15/2017 ? A #: [id number] ? Primary Physician: Coyleaaron, Cash J ? Case #: [id number] ? File Name: [id number] ? Catheterization Order Number: [id number] ? [facility] ? Final Report [place], [place] ? Patient Name: ? Emani C. Cassandrae lder ? ID#: ?[id number] ? : ?1945 ? Procedure Date: ? September 15, 2017 ?Case #: ? [id number] ? Room: ? 2 ? Case Physician: ? Cahs villavicencio M.D. ?Start: ?14:56 ?Fellow: ? Zuleika todd M.D. ? Admission: ??09/12/2017 ? Referring ? Kristyn barron M.D. ? Physicians: ?Paulette Bowles ? Procedures: ?* Coronary Angiography ?* Left Heart Catheterization ? History ?Emani Delong is a 72 year old woman. [...] with: uns table angina (w/i 60 days). [place] ?Cardiovascular Society angina c lass was IV. [...] vident early complications. ?Results discussed with service mapping pilot Dr Smith, and with the ?patient and their family. ?Prior to initiation of the proc edure, the patient's frailty score was ?determined to be: vulnerable (s ee definitions below). ?A time-out was conducted prior to the start of the procedure to verify ?the correct patient and procedu re, procedure location, and all relevant ?critical information. ?The attending physician was presen t for the entire procedure. ?Dr. Cash Manjarrez M.D. was present during the moderate sedation ?intraservice time as documented by the sedation nurse. ??Case time = 00:57. ?Dr. Cash Manjarrez M.D. perf ormed the coronary angiography and left ?heart catheterization. ? Cash J Coylewright, ? M.D. ? Electronically Signed by: Cash J Coylew right, M.D. ? Report Finalized: 09/18/2017 ??19:17 ? Procedure Note Cash Manjarrez MD - 09/18/2017For matting of this note might be different from the original. [facility] Cardiac Catheterization/Intervention Re port Patient Name: Emani Delong Procedure Date: 09/15/2017 A #: [id number] Primary Physician: Cash Manjarrez Case #: File Name: [id number] Catheterization Order Number: [id number] [facility] Final Report [place], [place] Patient Name: Emani Delong ID#: [id number] : 1945 Procedure Date: September 15, 2017 Case #: Room: 2 Case Physician: Addison May Start: 14:56 Fellow: Zuleika Manjarrez M.D. Admissio n: 09/12/2017 Referring Kristyn Whitehead M.D. Physicians: Paulette Bowles Procedures: * Coronary Angiography * Left [...] She had a remote coronary intervention proc [facility]. The patient has a history of dyspnea with NYHA functional class I I. She also has a history of an abnormal EKG. Prior to the initiation o f this procedure, the patient was designated as ASA Class III. Patient Status at Catheterization: The patient presented with: unstable an kayden (w/i 60 days). [place] [employer] angina class was IV. This patient was on beta blockers prior to the procedure. No str ess or imaging studies were performed prior to this procedure. The status of the diagnostic procedure was Elective. Technique: A 6 SLFr sheath was inserted in the rig radial artery utilizing the Seldinger technique. The [...] P athologist Signature Heparin UFH 0.44 IU/mL [facility] LABORATORY Comment: Guidelines for therapeutic [...] Organization Address City/State/[place] [address] (ABNORMAL) Differential, Automated (09/15/2017 3:51 AM EDT) [facility] Method Time Signature Neutrophils % 31.9 % [facility] LABORATORY Neutr Abs (ANC) 2.09 1.70 - [facility] 6.10 [facility] x10(3)/[facility] LABORATORY Lymphocytes % 55.6 % [facility] LABOR[facility]ORY Lymphocytes Abs 3.6 (H) 0.9 - 3.2 [facility] x10(3)/[facility] LABORATORY Monocytes % 6.6 % [facility] Monocyte Abs 0.4 0.3 - 0.9 [facility] x10(3)/[facility] LABORATORY Eosinophils % 4.7 % [facility] Eosinophils Abs 0.3 0.0 - 0.4 [facility] x10(3)/[facility] LABORATORY Basophils % 0.6 % [facility] LABORATORY Basophils Abs 0.0 0.0 - 0.1 [facility] CE[facility] x10(3)/[facility] LABORATORY Immature Gran % 0.60 % [facility] LABORATORY Comment: Immature granulocytes(IG's)percentage an d absolute count will include metamyelocytes, myelocytes, and promyelo cytes. Blood smears from CBCs yielding IG's will be scanned manually for concor dance. If this scan disagrees with the automated IG or if promyelocytes are not ed, a manual differential will be performed. Anuja Gran Abs 0.04 0.00 - 0.04 x10(3)/[facility] LABORATORY Specimen Anatomical Collection Method Collection Time Receive d Time (Source) Location / / Volume Laterality Blood specimen 09/15/2017 3:51 AM 018 4:05 (specimen) EDT AM EDT Resulting Agency Comment Spec In Lab Rose Justice MD HEMATOLOGY ORDERABLES Performing Organization Address City/State/[place] [address] (ABNORMAL) Hemogram (09/15/2017 3:51 AM EDT) Analysis Performed At Patho logist Time Signature WBC 6.6 4.0 - 9.5 [facility] x10(3)/[facility] LABORATORY RBC 4.86 4.00 - [place] 5.21 [facility] x10(6)/[facility] Hemoglobin 15.1 11.7 - [facility] gm/dL [facility] LABORATORY Hematocrit 45.9 (H) 35.7 - [facility] 45.8 % [facility] LABORATORY MCV 94.4 82.6 - [facility] 94.4 [facility] LABORATORY MCH 31.1 27.1 - [facility] 32.[address] [facility] LABORATORY MCHC 32.9 31.7 - [facility] 35.[facility] gm/dL [facility] LABORATORY Platelets 253 145 - 357 [facility] x10(3)/[facility] RDWSD 42.7 37.0 - [place] CELESTINA 46.0 [facility] LABORATORY RDWCV 12.4 11.5 - [facility] 14.1 % [facility] LABORATORY MPV 8.9 7.6 - 12.9 [facility] LABORATORY nRBC % Auto 0.0 % [facility] LABORATORY nRBC Abs Auto 0.000 0.000 - [facility] 0.000 [facility] x10(3)/[facility] LABORATORY Specimen Anatomical Collection Method Collection Time Receive d Time (Source) Location / / Volume Laterality Blood specimen 09/15/2017 3:51 AM 018 4:05 (specimen) EDT AM EDT Resulting Agency Comment Spec In Lab Rose Justice MD HEMATOLOGY ORDERABLES Performing Organization Address City/State/[place] [address] (ABNORMAL) BMP w/fasting Glucose (09/15/2017 3:51 AM EDT) athologist Signature Glucose 103 (H) 65 - 99 [facility] Fasting mg/dL [facility] LABORATORY Comment: ?Fasting* Glucose Interpretive C riteria Normal ?65-99 mg/dL Impaired Fasting glucose ?100-125 mg/dL Consistent with Diabetes Mellitus ? >or= 126 mg/dL *Fasting is defined as no caloric intake for at least 8 hours In the absence of unequivocal hypergly cemia a plasma glucose value of >or= 126 mg/dL should be repeated on a subseq u day. Diagnosis and Classification of Diabetes Mellitus, Position Statement from the [place] [employer]. ??Diabete s Care, Volume 33, Supplement 1, Feb 2009 BUN 25 (H) 8 - 18 mg/dL [facility] LABORATORY Creatinine 0.99 0.70 - 1.20 mg/dL [facility] LABORATORY Sodium 141 135 - 145 mmol/L [facility] LABORATORY Potassium 4.4 3.5 - 5.0 mmol/L [facility] LABORATORY Comment: Please note: ??Patients with WBC >100,00 0 may have falsely elevated Potassium levels. ??For accurate Potassium quantif ication in these patients send serum separator tube (gold top) for subsequent determinations. ??Contact the Clinical Chemistry Laboratory if there are any qu estions. Chloride 104 98 - 107 mmol/L [facility] LABORATORY CO2 24 22 - 31 mmol/L [facility] Anion Gap 13 5 - 15 mmol/L [facility] LABORATORY Calcium 9.2 8.5 - 10.5 mg/dL [facility] LABORATORY Estimated GFR 56 (L) >=60 mL/min/1.73 m?? [facility] LABORATORY Comment: The eGFR was calculated using the CKD-EP I equation. As with all creatinine based estimates of kidney function, eGFR values calculated with the CKD-EPI equation are not accurate in patients wi th acute kidney failure, extremes of body mass or the acutely ill. http://[employer] http://[employer]/FindMySongnkf eGFR 65 >=60 mL/min/1.73 m?? [facility] LABORATORY Comment: The eGFR was calculated using the CKD-EP I equation. As with all creatinine based estimates of kidney function, eGFR values calculated with the CKD-EPI equation are not accurate in patients wi th acute kidney failure, extremes of body mass or the acutely ill. http://[employer]/FindMySongnkdep http://[employer]/[facility] AD[facility] Specimen Anatomical Collection Method Collection Time Receive d Time (Source) Location / / Volume Laterality Blood specimen 09/15/2017 3:51 AM 018 4:05 (specimen) EDT AM EDT Resulting Agency Comment Spec In Lab Raj Smith MD CHEMISTRY ORDERABLES Performing Organization Address City/State/[place] [address] Prothrombin Time (09/15/2017 3:51 AM EDT) P athologist Signature PT 10.2 9.4 - 12.5 [facility] LABORATORY INR 0.9 [facility] LABORATORY Comment: An INR <2.0 indicates [...] Organization Address City/State/[place] [address] SCAN DOC: CARDIAC CATH [...] 415 ms MUSE SYSTEM (Bezet) Calculated P [place] 61 degrees MUSE SYSTEM Calculated R [place] 35 degrees MUSE SYSTEM Calculated T [place] 59 degrees MUSE SYSTEM INTERPRETATION Sinus bradycardia MUSE SY STEM Otherwise normal ECG When compared with ECG of 14-SEP-2017 08:06, (unconfirmed) No significant change was found Confirmed by MD Miranda, Nirmal Partida ([id number]) on 09/15/2017 8:41: 13 AM Specimen Anatomical Collection Method Collection Time Receive d Time (Source) Location / / Volume Laterality 09/14/2017 2:55 PM 8 8:41 EDT AM EDT Raj Smith MD ECG ORDERABLES Performing Organization Address City/[facility]/ZIP Code Phon e Number MUSE SYSTEM Cardiac Enzymes (LEB/CGP) (09/14/2017 8:44 AM EDT) P athologist Signature Troponin-T <0.01 0.00 - 0.00 [facility] ng/mL [facility] LABORATORY Comment: The 99th percentile for Troponin T is le ss than 0.01 ng/mL, any detectable cTnT concentration using this assay should be considered elevated. According to the third universal definit ion of myocardial infarction the following criteria with a clinical prese ntation consistent with acute myocardial ischemia meets the diagnosis for a myocardial infarction ([place]). Detection of a rise and/or fall of [...] additional sample may be indicated. Reference: Third [place] Definition of Myocardial Infarction. Journal of the [place] [employer] 2012;60:1581-98 CK, Total 37 0 - 160 unit/L [facility] LABORATORY Specimen Anatomical Collection Method Collection Time Receive d Time (Source) Location / / Volume Laterality Blood specimen 09/14/2017 8:44 AM 018 9:26 (specimen) EDT AM EDT Resulting Agency Comment Spec In Lab Raj Smith MD CHEMISTRY ORDERABLES Performing Organization Address City/State/[place] [address] EKG 12 Lead (09/14/2017 8:06 AM EDT) Component Value Ref Range Test Analysis Performed Pathologis t Method Time At Signature Ventricular rate 52 BPM MUSE SYSTEM Atrial Rate 52 BPM MUSE SYSTEM P-R Interval 186 ms MUSE SYSTEM QRS Duration 88 ms MUSE SYSTEM Q-T Interval 464 ms MUSE SYSTEM QTC Calculated 431 ms MUSE SYSTEM (Bezet) Calculated P [place] 63 degrees MUSE SYSTEM Calculated R [place] 33 degrees MUSE SYSTEM Calculated T [place] 57 degrees MUSE SYSTEM INTERPRETATION Sinus bradycardia [...] Smith MD ECG ORDERABLES Performing Organization Address City/[facility]/ZIP Code Phon e Number MUSE SYSTEM Prothrombin Time (09/14/2017 5:36 AM EDT) P athologist Signature PT 9.9 9.4 - 12.5 [facility] LABORATORY INR 0.9 [facility] LABORATORY Comment: An INR <2.0 indicates [...] Organization Address City/State/[place] [address] (ABNORMAL) BMP w/fasting Glucose (09/14/2017 5:36 AM EDT) Analysis Performed At Patho logist Time Signature Glucose Not Perf 65 - 99 [facility] LABORATORY Comment: Duplicate order ?Fasting* [...] of Diabetes Mellitus, Position Statement from the [place] [employer]. ??Diabete s Care, Volume 33, Supplement 1, Feb 2009 BUN 23 (H) 8 - 18 mg/dL [facility] LABORATORY Creatinine 0.91 0.70 - 1.20 mg/dL [facility] LABORATORY Sodium 142 135 - 145 mmol/L [facility] LABORATORY Potassium 4.3 3.5 - 5.0 mmol/L [facility] LABORATORY Comment: Please note: ??Patients with WBC >100,00 0 may have falsely elevated Potassium levels. ??For accurate Potassium quantif ication in these patients send serum separator tube (gold top) for subsequent determinations. ??Contact the Clinical Chemistry Laboratory if there are any qu estions. Chloride 104 98 - 107 mmol/L [facility] LABORAT[facility] CO2 Not Perf 22 - [facility] LABORATORY Comment: Add-on request. Sample too old to perform test. Anion Gap Unable to Calculate 5 - 15 mmol/L [facility] LABORATORY Calcium 9.0 8.5 - 10.5 mg/dL [facility] LABORATORY Estimated GFR 62 >=60 mL/min/1.73 m?? [facility] Comment: The eGFR was calculated using the CKD-EP I equation. As with all creatinine based estimates of kidney function, eGFR values calculated with the CKD-EPI equation are not accurate in patients wi th acute kidney failure, extremes of body mass or the acutely ill. http://[employer]/DHnkdep http://[employer]/DHMCnkf eGFR 72 >=60 mL/min/1.73 m?? [facility] LABORATORY Comment: The eGFR was calculated using the CKD-EP I equation. As with all creatinine based estimates of kidney function, eGFR values calculated with the CKD-EPI equation are not accurate in patients wi th acute kidney failure, extremes of body mass or the acutely ill. http://[employer]/DHnkdep http://[employer]/DHMCnkf Specimen Anatomical Collection Method Collection Time Receive d Time (Source) Location / / Volume Laterality Blood specimen 09/14/2017 5:36 AM 018 8:32 (specimen) EDT AM EDT Resulting Agency Comment Spec In Lab Raj Smith MD CHEMISTRY ORDERABLES Performing Organization Address City/[facility] [place] [address] Heparin (unfractionated) Level (09/14/2017 5:36 AM EDT) P athologist Signature Heparin UFH 0.39 IU/mL [facility] LABORATORY Comment: Guidelines for therapeutic [...] Smith MD HEMATOLOGY ORDERABLES Performing Organization Address City/[facility]/ZIP Code Phon e Number [address] Differential, Automated (09/14/2017 5:36 AM EDT) P athologist Signature Neutrophils % 38.6 % [facility] LABORATORY Neutr Abs (ANC) 2.35 1.70 - [facility] 6.10 [facility] x10(3)/[facility] LABORATORY Lymphocytes % 50.3 % [facility] LABORATORY Lymphocytes Abs 3.1 0.9 - 3.2 [facility] x10(3)/[facility] LABORATORY Monocytes % 5.3 % [facility] LABORATORY Monocyte Abs 0.3 0.3 - 0.9 [facility] x10(3)/[facility] LABORATORY Eosinophils % 4.4 % [facility] LABORATORY Eosinophils Abs 0.3 0.0 - 0.4 [facility] x10(3)/[facility] LABORATORY Basophils % 0.7 % [facility] LABORATORY Basophils Abs 0.0 0.0 - 0.1 [facility] x10(3)/[facility] LABORATORY Immature Gran % 0.70 % [facility] LABORATORY Comment: Immature granulocytes(IG's)percentage an d absolute count will include metamyelocytes, myelocytes, and promyelo cytes. Blood smears from CBCs yielding IG's will be scanned manually for concor dance. If this scan disagrees with the automated IG or if promyelocytes are not ed, a manual differential will be performed. Anuja Gran Abs 0.04 0.00 - 0.04 x10(3)/[facility] LABORATORY Specimen Anatomical Collection Method Collection Time Receive d Time (Source) Location / / Volume Laterality Blood specimen 09/14/2017 5:36 AM 018 5:53 (specimen) EDT AM EDT Resulting Agency Comment Spec In Lab Rose Justice MD HEMATOLOGY ORDERABLES Performing Organization Address City/State/[place] [address] (ABNORMAL) Hemogram (09/14/2017 5:36 AM EDT) Analysis Performed At Patho logist Time Signature WBC 6.1 4.0 - 9.5 [facility] x10(3)/[facility] LABORATORY RBC 4.82 4.00 - [facility] 5.21 [facility] x10(6)/[facility] LABORATORY Hemoglobin 15.4 11.7 - FELICIA OSCAR 15.5 gm/dL [facility] LABORATORY Hematocrit 46.0 (H) 35.7 - FELICIA OSCAR 45.8 % [facility] LABORATORY MCV 95.4 (H) 82.6 - [place] CELESTINA 94.4 [facility] LABORATORY MCH 32.0 27.1 - FELICIA TRIMBLECK 32.[address] [facility] LABORATORY MCHC 33.5 31.7 - FELICIA OSCAR 35.0 gm/dL [facility] LABORATORY Platelets 241 145 - 357 [facility]EL[facility] LAGUERRECELESTINA x10(3)/[facility] RDWSD 45.1 37.0 - [place] CELESTINA 46.0 [facility] RDWCV 12.8 11.5 - FELICIA CELESTINA 14.1 % [facility] LABORATORY MPV 8.9 7.6 - 12.9 [facility] LABORATORY nRBC % Auto 0.0 % [facility] LABOR[facility]ORY nRBC Abs Auto 0.000 0.000 - FELICIA OSCAR 0.000 [facility] x10(3)/[facility] LABORATORY Specimen Anatomical Collection Method Collection Time Receive d Time (Source) Location / / Volume Laterality Blood specimen 09/14/2017 5:36 AM 018 5:53 (specimen) EDT AM EDT Resulting Agency Comment Spec In Lab Rose Justice MD HEMATOLOGY ORDERABLES Performing Organization Address City/State/Z[place] [address] Glucose, fasting (09/14/2017 5:36 AM EDT) athologist Signature Glucose 89 65 - 99 [facility] Fasting mg/dL [facility] LABORATORY Comment: ?Fasting* Glucose Interpretive C riteria [...] of Diabetes Mellitus, Position Statement from the [place] [employer]. ??Diabete s Care, Volume 33, Supplement 1, Feb 2009 Specimen Anatomical Collection Method Collection Time Receive d Time (Source) Location / / Volume Laterality Blood specimen 09/14/2017 5:36 AM 018 5:53 (specimen) EDT AM EDT Resulting Agency Comment Spec In Lab Raj Smith MD CHEMISTRY ORDERABLES Performing Organization Address City/[facility] Phon e Number [address] LDL Cholesterol, Direct (09/14/2017 5:36 AM EDT) athologist Signature LDL Chol 102 mg/dL [facility] LABORATORY Comment: Lowest Risk: <100 mg/dL Lower Risk: 100-129 mg/dL Borderline High Risk: 130-159 mg/dL High Risk: 160-189 mg/dL Very High Risk: >bx=447 mg/dL Specimen Anatomical Collection Method Collection Time Receive d Time (Source) Location / / Volume Laterality Blood specimen 09/14/2017 5:36 AM 018 5:53 (specimen) EDT AM EDT Resulting Agency Comment Spec In Lab Raj Smith MD CHEMISTRY ORDERABLES Performing Organization Address City/[facility] Phon e Number [address] Hemoglobin A1c (09/14/2017 5:36 AM EDT) athologist Signature Hemoglobin A1C 5.6 4.3 - 5.6 [facility] LABORATORY Comment: Reference Range: 4.3 - 5.6% [...] Mellitus, Diabetes Care 2013; 36: Suppl. 1, S67-08 Est Avg Gluc See note mg/dL [facility] Comment: Estimated Average Glucose not [...] with hemoglobinopathies. Additional resources are available on [facility] website. Yang PERES, Layla J, Cora R, et al. ??Tr anslating the A1C assay into estimated average glucose values. ??Diabetes Care 2008:31(8):8350-2979. Specimen Anatomical Collection Method Collection Time Receive d Time (Source) Location / / Volume Laterality Blood specimen 09/14/2017 5:36 AM 018 5:53 (specimen) EDT AM EDT Resulting Agency Comment Spec In Lab Raj Smith MD CHEMISTRY ORDERABLES Performing Organization Address City/State/[place] [address] Lipid Panel (09/14/2017 5:36 AM EDT) athologist Signature Chol, Total 168 mg/dL [facility] LABORATORY Comment: Lower Risk: <200 mg/dL Average Risk: 200-239 mg/dL Higher Risk: >ov=355 mg/dL Triglycerides 158 mg/dL [facility] LAB[facility]ATORY Comment: Average Risk/Lower Risk: <150 mg/dL Borderline High Risk: 150-199 mg/dL High Risk: 200-499 mg/dL Very High Risk: >wp=943 mg/dL HDL 48 mg/dL [facility] LABORATORY Comment: Males: ?? Higher Risk: <40 mg/dL Females: ?? HIgher Risk: <50 mg/dL LDL Cholesterol 88 mg/dL [facility] LABORATORY Comment: Lowest Risk: <100 mg/dL Lower Risk: 100-129 mg/dL Borderline High Risk: 130-159 mg/dL High Risk: 160-189 mg/dL Very High Risk: >dd=941 mg/dL Chol/HDL Ratio 3.[address] [facility] LABOR[facility]ORY Lipid Interpretation See Note FELICIA [facility] LABORATORY Comment: Lipid management should be guided by a p atient? s ASCVD risk, goals and preferences. ACC/AHA Guidelines recommend high intens ity statin if clinical ASCVD or LDL greater than or equal to 190 mg/dL. http://Surveying And Mapping (SAM).[employer]/CSS-SOI-Hvmxbqbda Adults aged 40-75 with LDL 70-189 mg/dL should have their 10 year ASCVD risk estimated with the ACC/AHA ASCVD risk es timator http://tools.acc.org/LKTKR-Fwom-Goieoeyp r/ Statin should be discussed if risk [...] Organization Address City/State/[place] [address] Heparin (unfractionated) Level (09/13/2017 8:28 PM EDT) athologist Signature Heparin UFH 0.55 IU/mL [facility] LABORATORY Comment: Guidelines for therapeutic [...] Organization Address City/State/ZIP Code Phon e Number [place] [id number] [facility] LABORATORY Drive Cardiac Enzymes (LEB/CGP) (09/13/2017 3:52 PM EDT) athologist Signature Troponin-T <0.01 0.00 - 0.00 [facility] ng/mL [facility] LABORATORY Comment: The 99th percentile for Troponin T is le ss than 0.01 ng/mL, any detectable cTnT concentration using this assay should be considered elevated. According to the third universal definit ion of myocardial infarction the following criteria with a clinical prese ntation consistent with acute myocardial ischemia meets the diagnosis for a myocardial infarction ([place]). Detection of a rise and/or fall of [...] additional sample may be indicated. Reference: Third [place] Definition of Myocardial Infarction. Journal of the [place] College of Cardiology 2012;60:1581-98 CK, Total 44 0 - 160 unit/L [facility] LABORATORY Specimen Anatomical Collection Method Collection Time Receive d Time (Source) Location / / Volume Laterality Blood specimen 09/13/2017 3:52 PM 018 4:03 (specimen) EDT PM EDT Resulting Agency Comment Spec In Lab Raj Smith MD CHEMISTRY ORDERABLES Performing Organization Address City/State/[place] [address] Heparin (unfractionated) Level (09/13/2017 2:10 PM EDT) athologist Signature Heparin UFH 0.51 IU/mL [facility] LABORATORY Comment: Guidelines for therapeutic [...] Smith MD HEMATOLOGY ORDERABLES Performing Organization Address [facility]/State/ZIP Code Phon e Number [place] [phone]OSP[address] LAB[address]ORY [address] ECHOCARDIOGRAM COMPLETE W CONTRAST (09/13/2017 11:28 AM EDT) P athologist Signature EF 65 [facility] Specimen (Source) Anatomical Location Collection Method / Collectio n Time Received Time / Laterality Volume 09/13/2017 Narrative [facility] - 09/13/2017 5:00 PM EDT Procedure: ?Transthoracic Echocardiogram Patient: ?ORESTES JUNE C ? (Age): 1945(72y) Med Rec#: ? [id number] ?Sex: ?F ? Site Loc: ? [facility] ?Ht / Wt: ??165(cm)/84(kg) Pt. Loc: ?CCU ? BSA: ?1.91 Study Date: ?? 09/13/2017 ?Pt. Type: Inpatient Tape: ? Referring: Raj Smith ([id number]) Reading: Raj Smith ([id number]) Field Party Manager: TYRON Drug Counselor: Leonardo Redman Diagnosis: *Atherosclerotic heart disease of [...] E-wave Vmax ?1.1 ?m/sec ? MV deceleration pizm856.7 ? msec ? MV A-wave Vmax ?0.7 [...] ? Mid-Inferior ?Normal ? Mid-Inferoseptal ?Normal ? [place]-Septal ? Normal ? [place]-Anterior ? Normal ? [place]-Lateral ?Normal ? [place]-Inferior ? Normal ? [place]-Tip ?Normal ? This report has been electronically sign ed by: _ Raj Smith MD ? 09/13/2017 17:00 :14 Images reviewed and interpretation verif ied [facility] Procedure Note Raj Smith MD - 09/13/2017Formattin g of this note might be different from the original. Procedure: Transthoracic Echocardiogram Patient: ORESTES Clark (Age): (72y) Med Rec#: [id number] Sex: F Site Loc: [facility] Ht / Wt: 165(cm)/84(kg) Pt. Loc: [facility] BSA: 1.91 Study Date: 09/13/2017 Pt. Type: Inpatie nt Tape: Referring: Raj Smith ([id number]) Reading: Raj Smith ([id number]) Field Party Manager: [facility] Drug Counselor: Leonardo Redman Diagnosis: *Atherosclerotic heart disease of [...] MV E-wave Vmax 1.1 m/sec MV deceleration triv124.7 msec MV A-wave Vmax 0.7 m/sec MV [...] Normal Mid-Posterolateral Normal Mid-Inferior Normal Mid-Inferoseptal Normal [place] [place]-Septal Normal [place]-Anterior Normal [place]-Lateral Normal [place]-Inferior Normal [place]-Tip Normal This report has been electronically sign ed by: _ Raj Smith MD 09/13/2017 17:00:14 Images reviewed and interpretation judd mays [facility] Raj Smith MD ECHO ORDERABLES Performing Organization Address City/State/ZIP Code Phon e Number [facility]ART[facility] SYSTEM Cardiac Enzymes (LEB/CGP) (09/13/2017 9:55 AM EDT) P athologist Signature Troponin-T <0.01 0.00 - 0.00 [facility] ng/mL [facility] Comment: The 99th percentile for Troponin T is le ss than 0.01 ng/mL, any detectable cTnT concentration using this assay should be considered elevated. According to the third universal definit ion of myocardial infarction the following criteria with a clinical prese ntation consistent with acute myocardial ischemia meets the diagnosis for a myocardial infarction ([place]). Detection of a rise and/or fall of [...] additional sample may be indicated. Reference: Third [place] Definition of Myocardial Infarction. Journal of the [place] [employer] 2012;60:1581-98 CK, Total 50 0 - 160 unit/L [facility] Specimen Anatomical Collection Method Collection Time Receive d Time (Source) Location / / Volume Laterality Blood specimen 09/13/2017 9:55 AM 018 9:59 (specimen) EDT AM EDT Resulting Agency Comment Spec In Lab Raj Smith MD CHEMISTRY ORDERABLES Performing Organization Address [facility] [place] [address] Heparin (unfractionated) Level (09/13/2017 5:37 AM EDT) athologist Signature Heparin UFH 0.95 IU/mL [facility] LABORATORY Comment: Guidelines for therapeutic [...] Smith MD HEMATOLOGY ORDERABLES Performing Organization Address [facility]/[place] [address] (ABNORMAL) Differential, Automated (09/13/2017 3:29 AM EDT) [facility] Method Time Signature Neutrophils % 43.8 % [facility] Neutr Abs (ANC) 3.64 1.70 - [facility] 6.10 [facility] x10(3)/[facility] LAB[facility] Lymphocytes % 48.8 % [facility] Lymphocytes Abs 4.0 (H) 0.9 - 3.2 [facility] x10(3)/[facility] LABORATORY Monocytes % 5.1 % [facility] Monocyte Abs 0.4 0.3 - 0.9 [facility] x10(3)/[facility] LABORATORY Eosinophils % 1.4 % [facility] Eosinophils Abs 0.1 0.0 - 0.4 [facility] x10(3)/[facility] LABORATORY Basophils % 0.4 % [facility] Basophils Abs 0.0 0.0 - 0.1 [facility] x10(3)/[facility] LABORATORY Immature Gran % 0.50 % [facility] Comment: Immature granulocytes(IG's)percentage an d absolute count will include metamyelocytes, myelocytes, and promyelo cytes. Blood smears from CBCs yielding IG's will be scanned manually for concor dance. If this scan disagrees with the automated IG or if promyelocytes are not ed, a manual differential will be performed. Anuja Gran Abs 0.04 0.00 - 0.04 x10(3)/[facility]OR[facility] Specimen Anatomical Collection Method Collection Time Receive d Time (Source) Location / / Volume Laterality Blood specimen 09/13/2017 3:29 AM 018 4:03 (specimen) EDT AM EDT Resulting Agency Comment Spec In Lab Rose Justice MD HEMATOLOGY ORDERABLES Performing Organization Address City/State/[place] [address] Hemogram (09/13/2017 3:29 AM EDT) P athologist Signature WBC 8.3 4.0 - 9.5 [facility] x10(3)/[facility] LABORATORY RBC 4.45 4.00 - FEL[place] CELESTINA 5.21 [facility] x10(6)/[facility] LABORATORY Hemoglobin 14.0 11.7 - [facility] gm/dL [facility] Hematocrit 41.9 35.7 - [facility] 45.8 % [facility] MCV 94.2 82.6 - [facility] 94.4 [facility] LABORATORY MCH 31.5 27.1 - [place] CELESTINA 32.[address] [facility] MCHC 33.4 31.7 - [facility] 35.0 gm/dL [facility] Platelets 244 145 - 357 [facility] x10(3)/[facility] LABORATORY RDWSD 42.8 37.0 - [facility] 46.0 [facility] LABORATORY RDWCV 12.4 11.5 - [facility] 14.1 % [facility] MPV 9.1 7.6 - 12.9 [facility] nRBC % Auto 0.0 % [facility] nRBC Abs Auto 0.000 0.000 - [facility] 0.000 [facility] x10(3)/[facility] LABORATORY Specimen Anatomical Collection Method Collection Time Receive d Time (Source) Location / / Volume Laterality Blood specimen 09/13/2017 3:29 AM 018 4:03 (specimen) EDT AM EDT Resulting Agency Comment Spec In Lab Rose Justice MD HEMATOLOGY ORDERABLES Performing Organization Address City/State/[place] [address] Cardiac Enzymes (LEB/CGP) (09/13/2017 3:29 AM EDT) athologist Signature Troponin-T <0.01 0.00 - 0.00 [facility] ng/mL [facility] Comment: The 99th percentile for Troponin T is le ss than 0.01 ng/mL, any detectable cTnT concentration using this assay should be considered elevated. According to the third universal definit ion of myocardial infarction the following criteria with a clinical prese ntation consistent with acute myocardial ischemia meets the diagnosis for a myocardial infarction ([place]). Detection of a rise and/or fall of [...] additional sample may be indicated. Reference: Third [place] Definition of Myocardial Infarction. Journal of the [place] [employer] 2012;60:1581-98 CK, Total 57 0 - 160 unit/L [facility] Specimen Anatomical Collection Method Collection Time Receive d Time (Source) Location / / Volume Laterality Blood specimen 09/13/2017 3:29 AM 018 4:03 (specimen) EDT AM EDT Resulting Agency Comment Spec In Lab Raj Smith MD CHEMISTRY ORDERABLES Performing Organization Address City/State/[place] [address] Prothrombin Time (09/13/2017 3:29 AM EDT) P athologist Signature PT 10.6 9.4 - 12.5 [facility] LABORATORY INR [address] [facility] Comment: An INR <2.0 indicates [...] Organization Address City/State/[place] [address] (ABNORMAL) APTT (09/13/2017 3:29 AM EDT) athologist Signature PTT >160 25 - 37 [facility] CELEST[place] (Critical) sec [facility] Comment: The PTT is NOT appropriate for heparin m onitoring. Use the Anti-Xa level for heparin monitoring (HEP UFH) or LMWH mon itoring (HEP LMW). A PTT less than 37 seconds generally indicates adequate hem ostasis. Called by: , Read back by: Mag [...] Smith MD HEMATOLOGY ORDERABLES Performing Organization Address City/[facility]/[place] [address] Hepatic Function Panel (09/13/2017 3:29 AM EDT) P athologist Signature Total Protein 6.4 6.1 - 8.0 [facility] CELESTINA gm/dL [facility] Albumin 3.8 3.2 - 5.2 [place] CELESTINA gm/dL [facility] AST 16 0 - 30 [place] CELESTINA unit/L [facility] ALT 23 0 - 30 [place] CELESTINA unit/L [facility] Alk Phos 65 40 - 104 [place] CELESTINA unit/L [facility] Total 0.4 0.2 - 1.3 [facility] Bilirubin mg/dL [facility] Bili, Direct 0.1 0.0 - 0.3 [place] CELESTINA mg/dL [facility] Specimen Anatomical Collection Method Collection Time Receive d Time (Source) Location / / Volume Laterality Blood specimen 09/13/2017 3:29 AM 018 4:03 (specimen) EDT AM EDT Resulting Agency Comment Spec In Lab Raj Smith MD CHEMISTRY ORDERABLES Performing Organization Address City/[facility]/ZIP Code Phon e Number [address] pro-Brain Natriuretic Peptide (09/13/2017 3:29 AM EDT) P athologist Signature ProBNP 95 <=125 pg/mL [facility] Specimen Anatomical Collection Method Collection Time Receive d Time (Source) Location / / Volume Laterality Blood specimen 09/13/2017 3:29 AM 018 4:03 (specimen) EDT AM EDT Resulting Agency Comment Spec In Lab Raj Smith MD CHEMISTRY ORDERABLES Performing Organization Address City/[facility]/ZIP Code Phon e Number [address] TSH (09/13/2017 3:29 AM EDT) P athologist Signature TSH 1.54 0.27 - 4.20 FELICIA OSCAR mlU/ML [facility] Specimen Anatomical Collection Method Collection Time Receive d Time (Source) Location / / Volume Laterality Blood specimen 09/13/2017 3:29 AM 018 4:03 (specimen) EDT AM EDT Resulting Agency Comment Spec In Lab Raj Smith MD CHEMISTRY ORDERABLES Performing Organization Address City/[facility]/ZIP Code Phon e Number [address] Phosphorus (09/13/2017 3:29 AM EDT) P athologist Signature Phosphorus 4.0 2.5 - 4.5 FELICIA LAGUERRECELESTINA mg/dL [facility] Specimen Anatomical Collection Method Collection Time Receive d Time (Source) Location / / Volume Laterality Blood specimen 09/13/2017 3:29 AM 018 4:03 (specimen) EDT AM EDT Resulting Agency Comment Spec In Lab Raj Smith MD CHEMISTRY ORDERABLES Performing Organization Address City/State/ZIP Code Phon e Number [address] Magnesium (09/13/2017 3:29 AM EDT) athologist Signature Magnesium 0.97 0.69 - 1.07 [facility] mmol/L [facility] Specimen Anatomical Collection Method Collection Time Receive d Time (Source) Location / / Volume Laterality Blood specimen 09/13/2017 3:29 AM 018 4:03 (specimen) EDT AM EDT Resulting Agency Comment Spec In Lab Raj Smith MD CHEMISTRY ORDERABLES Performing Organization Address City/[facility]/ZIP Code Phon e Number [address] (ABNORMAL) Basic Metabolic Panel (non-fasting) (09/13/2017 3:29 AM EDT) athologist Signature Glucose Lvl 108 65 - 199 [facility] mg/dL [facility] Comment: Diabetes: >=200 mg/dL plus symp toms BUN 25 (H) 8 - 18 mg/dL [facility] Creatinine 0.95 0.70 - 1.20 mg/dL [facility] Sodium 140 135 - 145 mmol/L [facility] Potassium 4.1 3.5 - 5.0 mmol/L [facility] Comment: Please note: ??Patients with WBC >100,00 0 may have falsely elevated Potassium levels. ??For accurate Potassium quantif ication in these patients send serum separator tube (gold top) for subsequent determinations. ??Contact the Clinical Chemistry Laboratory if there are any qu estions. Chloride 101 98 - 107 mmol/L [facility] CO2 24 22 - 31 mmol/L [facility] Anion Gap 15 5 - 15 mmol/L [facility] Calcium 8.9 8.5 - 10.5 mg/dL [facility] Estimated GFR 59 (L) >=60 mL/min/1.73 m?? [facility] Comment: The eGFR was calculated using the CKD-EP I equation. As with all creatinine based estimates of kidney function, eGFR values calculated with the CKD-EPI equation are not accurate in patients wi th acute kidney failure, extremes of body mass or the acutely ill. http://[employer]/FindMySongnkdep http://[employer]/DHMCnkf eGFR 68 >=60 mL/min/1.73 m?? [facility] Comment: The eGFR was calculated using the CKD-EP I equation. As with all creatinine based estimates of kidney function, eGFR values calculated with the CKD-EPI equation are not accurate in patients wi th acute kidney failure, extremes of body mass or the acutely ill. http://[employer]/FindMySongnkdep http://[employer]/FindMySongnkf Specimen Anatomical Collection Method Collection Time Receive d Time (Source) Location / / Volume Laterality Blood specimen 09/13/2017 3:29 AM 018 4:03 (specimen) EDT AM EDT Resulting Agency Comment Spec In Lab Raj Smith MD CHEMISTRY ORDERABLES Performing Organization Address City/State/[place] [address] (ABNORMAL) Heparin (unfractionated) Level (09/13/2017 3:29 AM EDT) [facility] Method Time Signature Heparin UFH 1.12 IU/mL [facility] (Critical) [facility] Comment: Called by: , Read back [...] Organization Address City/State/ZIP Code Phon e Number [place] [phone] documented in this encounter Visit Diagnoses Diagnosis Unstable angina - Primary Intermediate coronary syndrome Coronary artery disease, angina presence unspecified, unspecified vessel or lesion type, unspecified whether samish or botello splanted heart Psoriasiform dermatitis Other psoriasis and similar disorders documented in this encounter Admitting Diagnoses Diagnosis Unstable [...] AM EDT 40 mg clopidogrel (PLAVIX) tablet 300 mg Given 09/13/2017 6:11 AM EDT 300 mg 300 mg, Oral, ONCE, 1 dose, On [facility] 09/13/17 at 0615, Routine clopidogrel (PLAVIX) tablet 75 mg Given 09/15/2017 8:13 AM EDT 75 mg 75 mg, Oral, DAILY, First dose (after last modification) on 09/14/17 at 0900, Until Discontinued, Routine Given 09/14/2017 8:47 AM EDT 75 mg heparin (porcine) injection 0-4,000 Given 09/13/2017 1:18 AM EDT 4,000 Units Units 0-4,000 Units, Intravenous, BOLUS PER HEPARIN PROTOCOL, Starting on Fri09/13/17 at 0027, Until Fri09/16/17 at 1211, Per Protocol, START ADJUSTMENT SCHEDULE 6 HOURS AFTER STARTING INFUSION Heparin UFH Level between 0.1 - 0.29 IU/mL: Bolus 2,000 units Heparin UFH Level less than 0.1 IU/mL: Bolus 4,000 units, Routine heparin (porcine) injection 4,000 Units Given 09/13/2017 12:45 AM EDT 4,000 Units 4,000 Units, Intravenous, ONCE, 1 dose, On [facility] 09/13/17 at 0045, INITIAL LOADING DOSE Maximum loading dose 4,000 units., Routine heparin 25,000 units in New Bag 09/15/2017 11:57 AM EDT 850 Units/ hr 17 mL/hr dextrose 5% 500 mL infusion 0-5,000 Units/hr (0-100 mL/hr), Intravenous, CONTINUOUS, Starting on 09/13/17 at 0045, Until Fri09/16/17 at 1211, BEGIN [...] 7:46 AM EDT 850 Units/hr 17 mL/hr levothyroxine (SYNTHROID) tablet 75 mcg Given 09/15/2017 [...] Given 09/13/2017 9:38 PM EDT 12.5 mg pantoprazole (PROTONIX) tablet 40 mg Given 09/15/2017 1:34 PM EDT 40 mg 40 mg, Oral, DAILY, First dose on 09/15/17 at 1230, Until Discontinued, DO NOT CRUSH OR OPEN, Routine PARoxetine (PAXIL) tablet 30 mg Given 09/16/2017 6:35 AM EDT 30 mg 30 mg, Oral, EVERY MORNING, First dose on 09/13/17 at 0700, Until Discontinued, Routine Given 09/15/2017 8:12 AM EDT 30 mg Given 09/14/2017 6:28 AM EDT 30 mg perflutren protein-A microspheres (OPTISON) Given 08/25 11:00 AM EDT 2.5 mLs 0.22 mg/mL injection 2.5 mL 2.5 mL, Intravenous, ONCE PRN, 1 dose, Starting on 09/13/17 at 1129, Until 09/13/17 at 1100, Per Protocol, Routine sodium chloride 0.9 % flush 5 mL Given 09/15/2017 9:00 PM EDT 5 mLs 5 mL, Intravenous, 2 TIMES DAILY, First dose on 09/13/17 at 0145, Until Discontinued, Routine Given 09/15/2017 8:15 AM EDT 5 mLs Given 09/14/2017 9:12 PM EDT 5 mLs sodium chloride 0.9% infusion New Bag 09/15/2017 4:05 PM EDT 125 mL/hr 125 mL/hr 125 mL/hr, Intravenous, CONTINUOUS, Starting on 09/15/17 at 1630, Until Fri09/15/17 at 1829, Recovery (Recovery-Hospital Unit) tacrolimus (PROTOPIC) 0.1 % ointment Given 09/15/2017 9:00 PM EDT Topical (Top), 2 TIMES DAILY, First dose on 09/13/17 at 0045, Until Discontinued Given 09/15/2017 8:15 AM EDT Given 09/14/2017 9:12 PM EDT documented in this encounter Active and Recently Administered Medications Times are shown in EDT. Scheduled Medication Order 09/14/2017 09/15/2017 09/16/2017 amLODIPine (NORVASC) tablet 2.5 mg 1737 (Given - Provider: Aurea Liu RN) 0900 (Due) 2.5 mg, Oral, DAILY, First dose on Mon at 1700, Until Discontinued, Routine aspirin EC tablet 81 mg 0848 (Given - Provider: Kat mullen RN) 0814 (Given - Provider: Aurea Liu RN)1554 ([facility] Hold - Provider: Admin Adt - Reason: Transfer to a Procedural area)1715 ([facility] Unhold - Provider: Admin Adt) 0900 (Due - Provider: Admin Adt) 81 mg, Oral, DAILY, First dose on Sat at 0900, Until Discontinued, Routine atorvastatin (LIPITOR) tablet 40 mg 0848 (Given - Prov ider: Kat Bobo RN) 0814 (Given - Provider: Aurea Riggs ams, RN)1554 ([facility] Hold - Provider: Admin Adt - Reason: Transfer to a Procedural area)1715 ([facility] Unhold - Provider: Admin Adt) 0900 (Due - Provider: Admin Adt) 40 mg, Oral, DAILY, First dose on Sat at 0900, Until Discontinued, Routine clopidogrel (PLAVIX) tablet 75 mg 0847 (Given - Provider: Griffin RN) 0813 (Given - Provider: Aurea Liu RN)1554 ([facility] Hold - Provider: Admin Adt - Reason: Transfer to a Procedural area)1715 ([facility] Unhold - Provider: Admin Adt) 0900 (Due - Provider: Admin Adt) 75 mg, Oral, DAILY, First dose on Sun at 0900, Until Discontinued, Routine levothyroxine (SYNTHROID) tablet 75 mcg 0848 (Given - Provider: Kat Bobo RN) 0814 (Given - Provider: Aurea Riggs ams, RN)1554 ([facility] Hold - Provider: Admin Adt - Reason: Transfer to a Procedural area)171 ([facility] Unhold - Provider: Admin Adt) 0900 (Due - Provider: Admin Adt) 75 mcg, Oral, DAILY, First dose on Sat at 0900, Until Discontinued, Routine lisinopril (PRINIVIL;ZESTRIL) tablet 5 mg 0849 (Given - Provider: Kat Bobo RN) 0814 (Given - Provider: Aurea Riggs ams, RN)1554 ([facility] Hold - Provider: Admin Adt - Reason: Transfer to a Procedural area)171 ([facility] Unhold - Provider: Admin Adt) 0900 (Due - Provider: Admin Adt) 5 mg, Oral, DAILY, First dose on Sat 08/25 03/13 at 0900, Until Discontinued, Routine metoprolol (LOPRESSOR) tablet 12.5 mg 0900 (Hold - Pro vider: Kat Bobo RN - Reason: Contraindicated)2108 (Given - Provider: Susana Bradley RN) 0900 (Given - Provider: Aurea Liu RN)155 ([facility] Hold - Provider: Admin Adt - Reason: Transfer to a Procedural area)171 ([facility] Unhold - Provider: Admin Adt) 0900 (Due [...] mg 133 4 (Given - Provider: Aurea Liu, BRANDEN)1554 ([facility] Hold - Provider: Admin Adt - Reason: Transfer to a Procedural area)171 ([facility] Unhold - Provider: Admin Adt) 0900 (Due - Provider: Admin Adt) 40 mg, Oral, DAILY, First dose on Mon at 1230, Until Discontinued, DO NOT CRUSH OR OPEN, Routine PARoxetine (PAXIL) tablet 30 mg 0628 (Given - Provider: Mag Bradley RN) 0812 (Given - Provider: Aurea Liu RN)155 ([facility] Hold - Provider: Admin Adt - Reason: Transfer to a Procedural area)171 ([facility] Unhold - Provider: Admin Adt) 0635 (Given - Provider: Yuli Valdez RN) 30 mg, Oral, EVERY MORNING, First dose o n 09/13/17 at 0700, Until Discontinued, Routine sodium chloride 0.9 % flush 5 mL 0853 (Given - Provide r: Kat Bobo RN)2111 (Given - Provider: Susana Bradley RN) 0815 (Given - Provider: Aurea Liu, BRANDEN)155 ([facility] Hold - Provider: Admin Adt - Reason: Transfer to a Procedural area)171 ([facility] Unhold - Provider: Admin Adt)2100 (Given - Provider: Mahnaz Petty, BRANDEN) 0900 (Due - Provider: Admin Adt) 5 mL, Intravenous, 2 TIMES DAILY, First dose on 09/13/17 at 0145, Until Discontinued, Routine tacrolimus (PROTOPIC) 0.1 % ointment 0900 (Not Given - Provider: Kat Bobo RN - Reason: Patient/family refused)2111 (Given - Provider: Susana Bradley RN) 08 (Given - Provider: Aurea Riggs ams, RN)155 ([facility] Hold - Provider: Admin Adt - Reason: Transfer to a Procedural area)171 ([facility] Unhold - Provider: Admin Adt)2100 (Given - Provider: Mahnaz Petty RN) 0900 (Due - Provider: Admin Adt) Topical (Top), 2 TIMES DAILY, First dose on 09/13/17 at 0045 Continuous Medication Order 09/14/2017 09/15/2017 09/16/2017 heparin 25,000 units in dextrose 5% 500 mL infusion(Li nked Group 1) 0703 (New Bag - Provider: Susana Bradley RN) 1157 (New Bag - Provider: Aurea Liu RN)155 ([facility] Hold - Provider: Admin Adt - Reason: Transfer to a Procedural area)171 ([facility] Unhold - Provider: Admin Adt) 0-5,000 Units/hr [...] CO NTINUOUS, Starting 09/15/17 at 1630, Until Fri09/15/17 at 1829, Recovery (Recovery-Hospital Unit) PRN Medication Order 09/14/2017 09/15/2017 09/16/2017 acetaminophen (TYLENOL) tablet 650 mg 0818 (Given - Pr ovider: Kat Bobo RN) 4919 ([facility] Hold - Provider: Admin Adt - R grace: Transfer to a Procedural area)1715 ([facility] Unhold - Provider: Admin Adt)1737 (Given - Provider: Aurea Liu RN) 650 mg, Oral, EVERY 4 HOURS PRN, Startin g 09/13/17 at 0124, Until Fri09/16/17 at 1211, Pain, Headaches, Maximum dose of acetaminophen is 4000 mg from all sources in 24 hours., Routine 2126 (Given - Provider: Mahnaz Petty RN - Comment: name and medication verified. scanner not working.) fentaNYL 50 mcg/mL multi-dose injection (CANCELED) 1445 (Given - Provider: Navneet Contreras, RN) ONCE PRN, Starting 09/15/17 at 1445, Until Fri09/15/17 at 1714, Cath (Intra- Procedure), Routine heparin (porcine) injection 0-4,000 Units(Linked Group 1) 1554 ([facility] Hold - Provider: Admin Adt - Reason: Transfer to a Procedural area)1715 ([facility] Unhold - Provider: Admin Adt) 0-4,000 Units, [...] Contreras, BRANDEN)1539 (Given - Provider: Navneet Contreras, RN) ONCE PRN, Starting Fri09/15/17 at 1515, Until Fri09/15/17 at 1714, Cath (Intra- Procedure), Routine iohexol (OMNIPAQUE) 350 mg/mL solution (CANCELED) 1549 (Given - Provider: Navneet Contreras, BRANDEN) ONCE PRN, Starting Fri09/15/17 at 1549, Until Fri09/15/17 at 1714, Cath (Intra- Procedure), Routine lidocaine (XYLOCAINE) 10 mg/mL (1 %) injection 3 mg 1554 ([facility] Hold - Provider: Admin Adt - Reason: Transfer to a Procedural area)1715 ([facility] Unhold - Provider: Admin Adt) 3 mg (0.3 mL), Subcutaneous, ONCE PRN, 1 dose, Starting 09/13/17 at 0124, Until Tu09/16/17 at 1211, for discomfort with PIV insertion, Routine midazolam (PF) (VERSED) 1 mg/mL multi-dose injection (CANCEL ED) 1444 (Given - Provider: Navneet Contreras, RN) ONCE PRN, Starting 09/15/17 at 1444, Until Fri09/15/17 at 1714, Cath (Intra- Procedure), Routine nitroGLYcerin (NITROSTAT) SL tablet 0.3 mg 1554 ([facility] Hold - Provider: Admin Adt - Reason: Transfer to a Procedural area)1715 ([facility] Unhold - Provider: Admin Adt) 0.3 mg, [...] chloride 0.9 % flush 5-20 mL 1554 ([facility] Hold - Provider: Admin Adt - Reason: Transfer to a Procedural area)1715 ([facility] Unhold - Provider: Admin Adt) 5-20 mL, Intravenous, EVERY 1 MIN PRN, S tarting 09/13/17 at 0124, Until Tu09/16/17 at 1211, flush, Flush pertains to all indwelling lines. Flush per protocol found in the job aid using the link provided on this medication record., Routine verapamil (ISOPTIN) injection (CANCELED) 151 (Given - Provider: Navneet Contreras, BRANDEN) ONCE PRN, Starting 09/15/17 at 1511, Until Fri09/15/17 at 1715, Administer over 2 Minutes, Cath (Intra-Procedure) Linked Groups Order Group 1: heparin (porcine) injection 0-4,000 UnitsJump to med 0-4,000 Units, Intravenous, BOLUS PER [facility] PROTOCOL, Starting 09/13/17 at 0027, Until 09/16/17 at 1211, Per Protocol
START ADJUSTMENT SCHEDULE 6 HOURS AFTER STARTING INFUSION&n bsp; Heparin UFH Level between 0.1 - 0.29 IU/mL: Bolus 2,000 units Heparin UFH Level less than 0.1 IU/mL: Bolus 4,000 units
Routine And heparin 25,000 units in dextrose 5% 500 mL infusionJump to med 0-5,000 Units/hr (0-100 mL/hr), Intraven ous, at 0-100 mL/hr, CONTINUOUS, Starting 09/13/17 at 0045, Until Tu09/16/17 at 1211
BEGIN infusion at 1,000 units [...] units/kg/hr) - 0.1 - 0.29 IU/mL, administer FL N bolus and increase rate by 150 [...]
Routine documented in this encounter Care Teams Home Care Specialist Relationship Specialty Start Date End Date Kristyn Whitehead MD PCP - General 01/16/10 [address] [place] [address] documented as of this encounter
--- OUTSIDE RECORDS SUMMARY | 2021-08-22 09:43 | XMS_ITS | Encounter Summary ---
:1945 Author Organization [facility] [place] [address] Care Team Providers Name Role Phone Kristyn Whitehead MD Primary Care Provider Reason for Visit Reason Comments Follow-up psoriasiform dermatitis Encounter Details Date Type Department Care Team Description 08/14/2016 Office Visit Dermatology at Do ilia Robin MD [facility] [address] [place] [address] Unclassifiable eczema; Road Eliza Wood PA [facility] [place] [address] Other pruritus ; [address] Neoplasm [place] [address] Social History Tobacco Use Types Packs/Day Years Used Date Former Smoker Sex Assigned at Date Recorded Not on file documented as of this encounter Patient Instructions Patient InstructionsMarva Cordoba - 08/14/2016 8:00 AM EDT Treatment and Wound Care Instructions Your treatment today: You have had a punch biopsy of your skin, which is a removal of tissue for examination under a microscope. There are stitches in the wound that will need to be removed in 12-14 days. If bleeding occurs, hold firm pressure against the wound for 15 minutes. If bleeding continues, calls the office or go to your local emergency room. Please allow 1-2 weeks for the biopsy results to return. Your physician or nurse will contact you with the results by phone or letter; follow-up will be discussed at that time. Wound Care Instructions: You will need to keep the dressing placed over the wound dry and intact for 24 hours. Afterwards, perform the following wound care daily until your stitches are removed: ?? Wash your hands before changing the dressing. ?? Remove the bandage and clean the area with mild soap and water, then gently pat the area dry. ?? Apply a small amount of Vaseline to the area, then cover the wound with a band-aid. Change your dressing daily until the wound is fully healed. ?? A small amount of yellow drainage is part of normal healing. You might notice some redness aroundthe edge of the wound. This is normal. ?? Please contact the office you you notice any of the following signs of infection: increased tenderness, pain, drainage, or redness that becomes hot or hard around the wound. If you have further questions or concerns, please call the office at [phone]. If it is after 5PM, or a holiday or weekend, please call [phone] and ask for the [employer] on-call. Treatment and Wound Care Instructions Your treatment today: You have had a shave biopsy of your skin, which is a removal of tissue for examination under a microscope. This wound will heal without stitches. Allow 3-6 weeks for the wound to heal. If bleeding occurs, hold firm pressure against the wound for 15 minutes. If bleeding continues, calls the office or go to your local emergency room. Please allow 1-2 weeks for the biopsy results to return. Your physician or nurse will contact you with the results by phone or letter; follow-up will be discussed at that time. Wound Care Instructions: You will need to keep the dressing placed over the wound dry and intact for 24 hours. Afterwards, perform the following wound care daily: ?? Wash your hands before changing the dressing. ?? Remove the bandage and clean the area with mild soap and water, then gently pat the area dry. ?? Apply a small amount of Vaseline to the area, then cover the wound with a band-aid. Change your dressing daily until the wound is fully healed. ?? A small amount of yellow drainage is part of normal healing. The area might appear as a small depression with redness around the edge of the wound. This is normal. ?? Please contact the office you you notice any of the following signs of infection: increased tenderness, pain, drainage, or redness that becomes hot or hard around the wound. If you have further questions or concerns, please call the office at [phone]. If it is after 5PM, or a holiday or weekend, please call [phone] and ask for the [employer] on-call. documented in this encounter Progress Notes Eliza Wood PA - 08/14/2016 8:00 AM EDT Images from the original note were not included. DERMATOLOGY - ESTABLISHED PATIENT CLINIC NOTE Date of service: 08/14/2016 Emani Delong : 1945 Dermatology Physician Early Intervention Specialist Note: Eliza (Lakeshia) FOX Wood Chief Complaint Patient presents with ??? 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 HPI: Emani Delong is a71 year old female with a 2 year history of an intensely itchy rash on her dorsal hands, elbows, knees, and dorsal feet, worsening over the past 6 months. Currently treating with protopic twice daily on the weekdays, clobetasol twice daily on the weekends, and vaseline under occlusion on her hands as needed. She denies any muscle weakness, decreased strength, color discolorationof her fingers, facial rash, or rash on the hips, chest, ears, or back. No arthralgias or photosensitivity. No personal or family history of psoriasis, lupus, or other autoimmune conditions. Patient began taking Plavix and Metropolol when her stent was placed 6 months ago, which is when shenotes worsening of the rash. She has a 15 pack-year smoking history, quit in 1987. Current meds: Levothyroxine, paroxetine, atorvastatin, clopidogrel, metoprolol, aspirin, nitroglycerin, Lisinopril, clobetasol, protopic Mammogram is pending, colonoscopy has been postponed. Patient had a chest x-ray a few years ago for pneumonia. No personal or known family history of malignancies. She feels very well overall. At [place], a chrome allergy was considered given golfing history but she says this rash persists even during months she is not golfing, and she has lesions on her elbows, dorsal feet, and knees as well. Medical History: No past medical history on file. No Defibrillator/pacemaker No Anti-coagulants Medications: Current Outpatient Prescriptions on File Prior to Visit Medication Sig Dispense Refill ??? tacrolimus (PROTOPIC) 0.1 % Ointment Apply to affected areas on hands, elbows, and feet twice daily on weekdays with occlusion at night 60 g 1 ??? levothyroxine (SYNTHROID) 75 mcg Tablet Take 75 mcg by mouth daily. ??? PARoxetine (PAXIL) 30 mg Tablet Take 30 mg by mouth every morning. ??? atorvastatin (LIPITOR) 40 mg Tablet Take 40 mg by mouth daily. ??? clobetasol (TEMOVATE) 0.05 % Cream Apply 0.05 % topically daily. ??? clopidogrel (PLAVIX) 75 mg Tablet Take 1 tablet by mouth daily. 90 tablet 3 ??? meTOPROLOL tartrate (LOPRESSOR) 25 mg Tablet Take 25 mg by mouth nightly. ??? isosorbide dinitrate (ISORDIL) 30 mg Tablet Take 30 mg by mouth 4 times daily. Reported on 06/28/2016 ??? levothyroxine (SYNTHROID) 25 mcg tablet (Patient not taking: No sig reported) ??? aspirin 325 mg EC tablet ??? nitroGLYcerin (NITROSTAT) 0.4 mg SL tablet 0.4 MG = 1 Tablet(s), Sublingual, PRN chest pain ??? simvastatin (ZOCOR) 40 mg tablet 40 MG = 1 Tablet(s), PO, QHS (Patient not taking: No sig reported) ??? lisinopril (PRINIVIL;ZESTRIL) 5 mg tablet 5 MG = 1 Tablet(s), PO, Once daily ??? PARoxetine (PAXIL) 20 mg tablet (Patient not taking: No sig reported) ??? Calcium Carbonate-Vitamin D3 (CALCIUM 600 WITH VITAMIN D3) 600 mg(1,500mg) - 200 unit Tab No current facility-administered medications on file prior to visit. Allergies: Allergies Allergen Reactions ??? Legumes Anaphylaxis ??? Lettuce Anaphylaxis ??? Soy Anaphylaxis ??? Sulfa (Sulfonamide Antibiotics) CIS - Hives ??? Tomato Anaphylaxis ??? Effexor [Venlafaxine] Other (See Comments) Lethargy Family History: No family history of melanoma No family history of atopy, psoriasis or other skin disease Social/Occupational History: Retired Has grown children Lives 6 months in [place] and 6 [place] in [place] Likes to go golfing Review of Systems: - General: Feels well. - Skin: As per HPI; no other skin concerns. Examination: - Constitutional: Patient was alert, well-appearing and in no noticeable distress. - Skin: A abbreviated skin examination was performed. This includes the head, neck, face and scalp including behind the ears. The arms, hands, palms, fingers. Legs, feet, toes and soles were also examined. Buttocks, breasts, and genitalia were not examined. Fragoso Skin Type: 2 Specific skin findings: 1. Feet, hands and elbows: scaly pink plaques with bony prominence, no nail dystrophy, no erythema of the nail folds. Diagnosis/Assessment/Treatment Plan: 1. Dermatomyositis vs psoriasis vs keratoderma blennorrhagicum vs bazex syndrome vs CTCL vs psoriasiform drug eruption (Metoprolol and Plavax) vs contact dermatitis I discussed this condition with the patient and explored therapeutic options. I recommended we do two biopsies to gather more information- patient is in agreement with this procedure. Procedure: Skin biopsy by shave technique Location: Left lateral ankle (Specimen A) Discussed indications for procedure and expectations including risks and benefits. Verbal consent obtained. Skin prep with alcohol. Local anesthesia with 1% xylocaine, 1/100,000 epinephrine. A sample of the lesion was removed by shave technique to the level of the dermis and submitted to Pathology. Hem ostasis obtained (AlCl and/or electrocautery). There were no complications; the pt. tolerated the procedure well. The wound was dressed. Post-procedure expectations, wound care and activity restrictions were reviewed. Follow-up based on pathology results Procedure: Skin biopsy by punch technique Location: Right distal elbow (Specimen B) Discussed indications for the procedure and expectations including risks and benefits. Verbal consent obtained. Skin prep with alcohol. Local anesthesia with 1% xylocaine, 1/100,000 epinephrine. A 4 mmpunch biopsy to the level of the subcutis was performed. Wound closed with monofilament suture. There were no complications; the patient tolerated the procedure well. The wound was dressed. Post-procedure expectations (including discomfort management), wound care and activity restrictions were reviewed. Follow-up based on pathology results. Suture removal: 10-14 days Recommendations: - Would still consider a chrome patch test if pathology favors spongiotic dermatitis. - May send referral for imaging pending pathology results. - Continue topical regimen as directed. - Labs today: CBC, CMP, JOANN, DA, CK LOS: [id number] 25 minutes of this 35 minute appointment were spent reviewing pathology, reviewing prior notes, discussing health history and possible differential work-ups. Pending pathology and to schedule suture removal and follow-up. Call or return to clinic prn if these symptoms worsen or fail to improve as anticipated. Patient verbally expressed understanding. I specifically asked the patient at the end of the visit if there were any further concerns or questions and the patient verbally stated there were no other concerns or questions. All questions were answered and all concerns were addressed. Note initiated by HAYLEY Nieves, Clinical Scribe - I am documenting this encounter acting as the scribe for and in the presence of Eliza Wood PA-C (Bri) I performed the above scribed service and agree with the accuracy of the documentation in this encounter. Reviewed and signed by Eliza Wood PA-C (Bri) Dermatology [facility] Patient seen in conjunction with staff physician: Leni Moon MD Section of Dermatology [facility] Leni Moon MD - 08/14/2016 8:00 AM EDT Patient seen today and also at [facility]. Papulosquamous process on dorsal hands, including over knuckles, dorsal feet and elbows. No nail fold changes. Prior biopsy psoriasiform plus eos plus possible interface. Recommended re-biopsy. DDx considered included psoraisform drug (worsening skin problem after stent,and addition of metoprolol and plavix, lisinopril longer standing), also considered Bazex, unusual psoriasis, less likely DM. Expanded lab work up, may consider imagining (Bazex, head and neck most likely) depending on repeat biopsy results Patient seen in conjunction with Eliza Wood PA-C (Bri) Signed by: LENI MOON MD Section of Dermatology [facility] documented in this encounter Plan of Treatment Upcoming Encounters Date Type Specialty Care Team Description 10/31/2021 Office Visit Rheumatology Bert Loera MD [facility] ER DR RHEUMATOLOGY DEP . [place], [place] [address] (Wo rk) documented as of this encounter Procedures Procedure Name Priority Date/Time Associated Diagnosis Comme nts SPECIMEN TO PATHOLOGY Routine 08/14/2016 9:37 Neoplasm of unce rtain Results for this (NON-OR) AM EDT behavior of skin procedure a re in the results section. SURGICAL PATHOLOGY Routine 08/14/2016 9:37 Result s for this REPORT AM EDT procedure are i n the results section. EXTRACTABLE NUCLEAR Routine 08/14/2016 9:10 Unclassifiable ecz ventura Results for this ANTIGEN (JOANN) AB AM EDT procedure a re in the results section. HEMOGRAM Routine 08/14/2016 9:10 Other pruritus Results fo r this AM EDT procedure are i n the results section. DIFFERENTIAL, Routine 08/14/2016 9:10 Other pruritus Results f or this AUTOMATED AM EDT procedure are i n the results section. CBC (WITH DIFF) Routine 08/14/2016 9:10 Other pruritus AM EDT CK Routine 08/14/2016 9:10 Unclassifiable eczema Res ults for this AM EDT procedure are i n the results section. COMPREHENSIVE Routine 08/14/2016 9:10 Unclassifiable eczema Re sults for this METABOLIC PANEL AM EDT procedure ar e in (NON-FASTING) the results section. documented in this encounter Results Surgical Pathology Report (08/14/2016 9:37 AM EDT) Component Value Ref Test Analysis Performed At [facility] gist Range Method Time Signature Surgical [id number] ?Location: [facility] Pathology BESSEMER Report The signing pathologist has (i) examined the relevant preparation(s) for the [facility] specimen(s) and (ii) rendered or confirmed the diagnosis(es) . HOSPITAL LABORATORY . ?Surgic al Pathology DIAGNOSIS A. Skin, left lateral ankle, shave biopsy: - Spongiotic dermatitis (see discussion) B. Skin, right distal elbow, punch biopsy: - Spongiotic dermatitis (see discussion) Electronically signed by: ??Александр WHITE, Adan Rodriguez Verified: ??08/16/2016 ?Dermatopathologist DISCUSSION The predominant finding in both samples is spong iosis. 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 The differentia l diagnosis is broad and would include an allergic or eczematous processes versus an id or drug-type dermal hypersensitivity reaction (the absence of eosinophils prov ides less support for the latter). The present findings do not suggest connective tissue disease or psoriasis. The present findings are not diagnostic of a lymphoproliferative process, although there is brisk exocytosis r elative to the degree of spongiosis. ? Given that lymphoproliferative process es early in their evolution can sometimes resemble more common inflammatory phenome na ??, paired clonality studies could be performed if there is significant clinical concern for this possibility. ADDITIONAL STUDIES A/B. CD3 highlights T-cells at the junction and scattered intraepidermal cells. There is a mix of CD4 and CD8 exp ression in both the dermis and epidermis. PASd staining fails to reveal fungal [place] ents. ?? Multiple step-leveled sections are reviewed. CLINICAL INFORMATION Specimen Submitted: A - Skin, left lateral ankle, shave biopsy (1) B - Skin, right distal elbow, punch biopsy (1) Clinical History: Dermatomyositis versus psori asis versus keratoderma blenorrhagicum versus bazex syndrome versus CTCL versus psoriasiform drug eruption Clinical Diagnosis: Same Report to: Eliza Wood PA SPECIMEN PROCESSING A - Labeled/Fixative: Left lateral ankle, formalin. Quantity/Size: Single, 1.0 x 0.7 x her O. 0.1 cm. Tissue Description: Shave of pruitt skin. Sections/Processing: Inked and quadrasected. (T1) B - Labeled/Fixative: Right distal elbow, formalin. Quantity/Size: Single, 0.4 cm in diameter x 0.3 cm deep. Tissue Description: Biopsy of pruitt skin. Sections/Processing: Inked and bisected. (T1) ??robert Specimen (Source) Anatomical Collection Method Collection Time Re ceived Time Location / / Volume Laterality 08/14/2016 9:37 AM EDT Eliza GUAN PATHOLOGY/CYTOLOGY ORDERABLE S Performing Organization Address City/[facility]/ZIP Code Phon e Number [address] Specimen to Pathology (NON-OR) (08/14/2016 9:37 AM EDT) Specimen Anatomical Collection Method Collection Time Receive d Time (Source) Location / / Volume Laterality AP Specimen 08/14/2016 9:37 AM 7 1:16 EDT PM EDT Narrative [facility] - 08/14/2016 1:16 PM EDT Specimen requisition ordered. ??Separate Pathology report to follow Resulting Agency Comment Spec In Lab Leni Moon MD PATHOLOGY/CYTOLOGY ORDERABLE S Performing Organization Address City/[facility]/ZIP [facility] Ph[place] Number [address] Differential, Automated (08/14/2016 9:10 AM EDT) P athologist Signature Neutrophils % 48.1 % [facility] Neutr Abs (ANC) 2.16 1.70 - [facility] 6.10 [facility] x10(3)/[facility] LABORATORY Lymphocytes % 37.6 % [facility] Lymphocytes Abs 1.7 0.9 - 3.2 [facility] x10(3)/[facility] LABORATORY Monocytes % 8.9 % [facility] Monocyte Abs 0.4 0.3 - 0.9 [facility] x10(3)/[facility] LABORATORY Eosinophils % 4.5 % [facility] Eosinophils Abs 0.2 0.0 - 0.4 [facility] x10(3)/[facility] LABORATORY Basophils % 0.7 % [facility] Basophils Abs 0.0 0.0 - 0.1 [place] [address]360(3)/[facility] LABORATORY Immature Gran % 0.20 % [facility] Comment: Immature granulocytes(IG's)percentage an d absolute count will include metamyelocytes, myelocytes, and promyelo cytes. Blood smears from CBCs yielding IG's will be scanned manually for concor dance. If this scan disagrees with the automated IG or if promyelocytes are not ed, a manual differential will be performed. Anuja Gran Abs 0.01 0.00 - 0.04 x10(3)/[facility] Specimen Anatomical Collection Method Collection Time Receive d Time (Source) Location / / Volume Laterality Blood specimen 08/14/2016 9:10 AM 017 9:33 (specimen) EDT AM EDT Resulting Agency Comment Spec In Lab Leni Moon MD HEMATOLOGY ORDERABLES Performing Organization Address City/State/[place] [address] (ABNORMAL) Hemogram (08/14/2016 9:10 AM EDT) Analysis Performed At Patho logist Time Signature WBC 4.5 4.0 - 9.5 [facility] x10(3)/[facility] LABORATORY RBC 4.60 4.00 - [facility] 5.21 [facility] x10(6)/[facility] LABORATORY Hemoglobin 14.5 11.7 - [place] 15.5 gm/dL [facility] LABORATORY Hematocrit 43.6 35.7 - [facility] [place] 45.8 % [facility] LABORATORY MCV 94.8 (H) 82.6 - [place] 94.[address] [facility] LABORATORY MCH 31.5 27.1 - [place] 32.0 pg [facility] LABORATORY MCHC 33.3 31.7 - [place] 35.0 gm/dL [facility] LABORATORY Platelets 254 145 - 357 [facility] x[facility](3[facility] LABORATORY RDWSD 44.1 37.0 - [place] 46.[address] [facility] LABORATORY RDWCV 12.6 11.5 - [place] 14.1 % [facility] LABORATORY MPV 9.2 7.6 - 12.9 [place] [facility] LABORATORY nRBC % Auto 0.0 % [facility] LAB[facility]ORY nRBC Abs Auto 0.000 0.000 - [place] 0.000 [facility] x10(3)/[facility] LABORATORY Specimen Anatomical Collection Method Collection Time Receive d Time (Source) Location / / Volume Laterality Blood specimen 08/14/2016 9:10 AM 017 9:33 (specimen) EDT AM EDT Resulting Agency Comment Spec In Lab Leni Moon MD HEMATOLOGY ORDERABLES Performing Organization Address City/[facility]/[place] [address] CK (08/14/2016 9:10 AM EDT) P athologist Signature CK, Total 117 0 - 160 [facility] unit/L [facility] LABORATORY Specimen Anatomical Collection Method Collection Time Receive d Time (Source) Location / / Volume Laterality Blood specimen 08/14/2016 9:10 AM 017 1:17 (specimen) EDT PM EDT Resulting Agency Comment Spec In Lab Leni Moon MD CHEMISTRY ORDERABLES Performing Organization Address City/[facility]/[place] [address] Extractable Nuclear Antigen (JOANN) Ab (08/14/2016 9:10 AM EDT) Patholo gist Method Time Signature JOANN Ab [facility] [place] Test ?Result ?Flag ??Unit ??RefValue [facility] HOSPITAL Ab to Extractable Nuclear Ag Romi Hickey LABORATORY ??SS-A/Ro Ab, IgG, S ?<0.2 ?U ? <1.0 (Negative) ??SS-B/La Ab, IgG, S ?<0.2 ?U ? <1.0 (Negative) ??Sm Ab, IgG, S ? <0.2 ?U ? <1.0 (Negative) ??BALL MACHINE OPERATOR Ab, IgG, S ?<0.2 ?U ? <1.0 (Negative) ??Scl 70 Ab, IgG, S ? <0.2 ?U ? <1.0 (Negative) ??Haley 1 Ab, IgG, S ? <0.2 ?U ? <1.0 (Negative) ?Test Performed by: ?[facility] ?[address] [place] [address] Specimen Anatomical Collection Method Collection Time Receive d Time (Source) Location / / Volume Laterality Blood specimen 08/14/2016 9:10 AM 017 1:52 (specimen) EDT PM EDT Resulting Agency Comment Spec In Lab Leni Moon MD IMMUNOLOGY ORDERABLES Performing Organization Address City/State/[place] [address] (ABNORMAL) Comprehensive metabolic panel (non-fasting) (08/14/2016 9:10 AM EDT) athologist Signature Glucose Lvl 101 65 - 199 [facility] mg/dL [facility] LABORATORY Comment: Diabetes: >=200 mg/dL plus symp toms BUN 18 8 - 18 mg/dL [facility]ORY Creatinine 1.03 0.70 - 1.20 mg/dL [facility] Comment: Please note that the pediatric reference intervals supplied above were not validated [place] [facility] Results from pediatri c patients should be interpreted in conjunction to the patient's age, height and muscle mass. Sodium 139 135 - 145 mmol/L [facility] Potassium 4.4 3.5 - 5.0 mmol/L [facility] Comment: Please note: ??Patients with WBC >100,00 0 may have falsely elevated Potassium levels. ??For accurate Potassium quantif ication in these patients send serum separator tube (gold top) for subsequent determinations. ??Contact the Clinical Chemistry Laboratory if there are any qu estions. Chloride 99 98 - 107 mmol/L [facility] CO2 25 22 - 31 mmol/L [facility] Anion Gap 15 5 - 15 mmol/L [facility] Calcium 9.6 8.5 - 10.5 mg/dL [facility] Total Protein 7.5 6.1 - 8.0 gm/dL [facility] Albumin 4.4 3.2 - 5.2 gm/dL [facility] AST 15 0 - 30 unit/L [facility] ALT 16 0 - 30 unit/L [facility] Alk Phos 75 40 - 104 unit/L [facility] Total Bilirubin 0.6 0.2 - 1.3 mg/dL [facility] Bili, Direct 0.1 0.0 - 0.3 mg/dL [facility] Estimated GFR 53 (L) >=60 [facility] Comment: This estimated GFR (eGFR) value was calc ulated using the MDRD equation which has been validated on patients between t he ages of 18 and 70. The MDRD should not be used to assess kidney function in patients < 18 years of age or in patients with extremes of body mass, or in patients with acute kidney failure. This value should be multiplied by 1.2 f or patients. For further information please copy and past e the following links into your internet browser. http://[employer]/DHnkdep http://[employer]/DHMCnkf Specimen Anatomical Collection Method Collection Time Receive d Time (Source) Location / / Volume Laterality Blood specimen 08/14/2016 9:10 AM 017 1:17 (specimen) EDT PM EDT Resulting Agency Comment Spec In Lab Leni Moon MD CHEMISTRY ORDERABLES Performing Organization Address City/State/[place] [address] documented in this encounter Visit Diagnoses Diagnosis Unclassifiable eczema Contact dermatitis and other eczema, due to unspecified cause Other pruritus Neoplasm of uncertain behavior of skin documented in this encounter Care Teams Supervisor Cigar Making Machine Relationship Specialty Start Date End Date Kristyn Whitehead MD PCP - General 01/16/10 [address] [place] [address] documented as of this encounter
--- OUTSIDE RECORDS SUMMARY | 2021-08-22 09:43 | XMS_ITS | Encounter Summary ---
:1945 Author Organization [place] [address] Care Team Providers Name Role Phone Kristyn Whitehead MD Primary Care Provider Encounter Details Date Type Department Care Team Description 09/06/2016 Telephone Dermatology at [facility] Leni Galindo MD [address] [facility] [place] [phone] [facility] [address]-DERMATOLGY [phone] [place], [place] [address] (Wo rk) Social History Tobacco Use Types Packs/Day Years Used Date Former Smoker Sex Assigned at Date Recorded Not on file documented as of this encounter Miscellaneous Notes Telephone Encounter - Galina Huang - 09/06/2016 2:01 PM EDT I left a voicemail for Emani Delong to see if we could change her apt with Dr. Moon on 09/26. documented in this encounter Plan of Treatment Upcoming Encounters Date Type Specialty Care Team Description 10/31/2021 Office Visit Rheumatology Bert Loera MD [facility] RHEUMATOLOGY [place] [address] (Wo rk) documented as of this encounter Visit Diagnoses Not on filedocumented in this encounter Care Teams Hydraulic Jack Adjuster Relationship Specialty Start Date End Date Kristyn Whitehead MD PCP - General 01/16/10 [address] [place] [address] documented as of this encounter
--- OUTSIDE RECORDS SUMMARY | 2021-08-22 09:43 | XMS_ITS | Encounter Summary ---
:1945 Author Organization [facility] [place] [address] Care Team Providers Name Role Phone Kristyn Whitehead MD Primary Care Provider Encounter Details Date Type Department Care Team Description 09/18/2016 Telephone Dermatology at [facility] Eliza Wood PA [address] [facility] [place] [phone] [facility] [phone] [place], [place] [address] (Wo rk) Social History Tobacco Use Types Packs/Day Years Used Date Former Smoker Sex Assigned at Date Recorded Not on file documented as of this encounter Miscellaneous Notes Telephone Encounter - Eliza Wood PA - 09/24/2016 10:24 AM EDT It appears July has canceled her appt on 09/[address] Ellis. I went to Dr. Ellis's schedule to take the patient over to my schedule as I am in the office this week. I was not aware but am assuming she is continuing to improve and will call when he's like to be seen following her vacation. This is just an FYI. Telephone Encounter - Eliza Wood PA - 09/18/2016 12:04 PM EDT I spoke to July today. She will see Dr. Ellis on 09/[address] Moon is precepting. If I am here that day, I will gladly see her and swap my patient with Dr. Ellis at that time. May offer oral steroids at that time, though she declines them now and will be leaving for 3 weeks following her appointment. Also offered evaluation for patch testing, and she reports she'd like to consider that if we think it is worthwhile and can discuss that at her visit next week. She reports the lesions are continuing to get better and she thinks she is improving. I am very happy to hear this. Telephone Encounter - Eliza Wood PA - 09/18/2016 11:52 AM EDT I called this patient and left her a message asking her to call me back. I discussed the case with Dr. Moon. She is scheduled for 09/[address] Ellis (it appears her appointment was canceled with and rescheduled with Dr. Ellis. We can offer her a course of oral steroids to help with her itching since she is only using topicals at this time. If I am still here on 09/26, I would be happy tosee her. documented in this encounter Plan of Treatment Upcoming Encounters Date Type Specialty Care Team Description 10/31/2021 Office Visit Rheumatology Bert Loera MD [facility] DR [facility] [place] [address] (Wo rk) documented as of this encounter Visit Diagnoses Not on filedocumented in this encounter Care Teams Tow Driver Relationship Specialty Start Date End Date Kristyn Whitehead MD PCP - General 01/16/10 [address] [place] [address] documented as of this encounter
--- OUTSIDE RECORDS SUMMARY | 2021-08-22 09:43 | XMS_ITS | Encounter Summary ---
:1945 Author Organization [facility] [place] [address] Care Team Providers Name Role Phone Kristyn Whitehead MD Primary Care Provider Reason for Visit Reason Comments Follow-up Dermatitis Encounter Details Date Type Department Care Team Description 07/31/2016 Office Visit Dermatology at Leni Lenz MD [facility] [address] IR[place] [address] D[address]atitis [address] Eliza Ybarra PA [facility] DR IRASEMA MELLO-DERMATOLOGY [place], [place] [id number] [place] [address] Social History Tobacco Use Types Packs/Day Years Used Date Never Assessed Sex Assigned at Date Recorded Not on file documented as of this encounter Patient Instructions Patient InstructionsPattie Cerrato - 07/31/2016 2:00 PM EDT Post-Biopsy Wound Care Instructions You have just had a skin biopsy. Wound care will be important to prevent infection and minimize scarring. ??? If there are sutures, do not get the wound soaking wet - e.g., immersed in a bath or swimming pool - for 96 hours. ??? Return to clinic for suture removal in 10-14 days. ??? Keep the wound clean. You may wash the wound with soapy water running over the wound. Do not scrub. ??? Apply antibiotic ointment - e.g., polysporin, neosporin, bacitracin or bactroban - or clean vaseline to the wound and cover with a bandaid 1-2 times a day. ??? Keep the wound dressed this way 24h a day until healed - typically 7-14 days, though healing times may vary depending on the size of the wound and the location. ??? Do not let the wound scab over or dry up, which may delay wound healing and more likely produce a more apparent scar than will already be formed. ??? The site may be itchy for up to several weeks. ??? If you notice redness spreading out from the wound, thick white or yellow drainage, increased swelling, tenderness at the wound or have any other questions or problems about the biopsy, please contact the clinic immediately. If you have any questions, please contact the clinic during the day at . In the case of urgency after 5PM and on weekends, please call the hospital number and ask for the Laboratory Technologist palaeontologist. Pathology results may take 5-14 days depending on the number of stains that must be performed. If you do not hear back within 3 weeks of the biopsy, contact the clinic nurse or front counter clerk during normalbusiness hours for the results. documented in this encounter Progress Notes Eliza Wood PA - 07/31/2016 2:00 PM EDT DERMATOLOGY - ESTABLISHED PATIENT CLINIC NOTE Date of service: 07/31/2016 Emani Delong : 1945 Dermatology Physician Cylinder Block Hole Reliner Note: Eliza Wood PA-C (Bri) Chief Complaint Patient presents with ??? Follow-up ??? 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 HPI: Emani Delong is a 71 y.o. female who presents for follow-up of psoriasiform dermatitis. She hasbeen using protopic twice daily on weekdays and clobetasol twice daily on the weekends, Vaseline with gloves on her hands between treatments, and benadryl as needed prior to sleep. She is still quite itchy but notes the lesions on her hands are better. Denies muscle weakness, decreased strength, Reynaud's, eyelid erythema, facial rashes, rashes on the buttocks, hips, chest, ears, or back. Denies arthralgias. Skin History: Eczema Medical History: No past medical history on [...] Has grown children Lives 6 months in [place] and 6 months in [place] Likes to go golfing Review of Systems: - General: Feels well. - Skin: As per HPI; no other skin concerns. Examination: - Constitutional: Patient was alert, well-appearing and in no noticeable distress. - Skin: An abbreviated skin examination was performed. This includes the head, neck, face and scalp including behind the ears, as well as the arms, hands, palms, fingers. Legs, feet, toes and soles were also examined. Patient declined genital exam. Fragoso Skin Type: 2 Specific skin findings: 1. Bilateral elbows, dorsal hands, knees, and dorsal feet; psoriasiform plaques over bony prominences; no nail pitting; no eyelid erythema; no rashes on the flank, chest, neck, or ears; scalp is clear;no facial rash Diagnosis/Assessment/Treatment Plan: 1. Favor atypical psoriasis vs atypical dermatomyositis or lupus -Considered repeating labs though recent EV was negative. More extensive work- up will be pending lab results. Procedure: Skin biopsy by punch technique. Location: Left medial dorsal hand Discussed indications for the procedure and expectations including risks and benefits. Verbal consent obtained. Skin prep with alcohol. Local anesthesia: 1% lidocaine with 1/100,000 epinephrine. A 4 mmpunch biopsy to the level of the subcutis was performed. Wound closed with monofilament suture. There were no complications; the patient tolerated the procedure well. The wound was dressed. Post-procedure expectations (including discomfort management), wound care and activity restrictions were reviewed. Follow-up based on pathology results. Suture removal: 10-14 days LOS: [id number] RTC Based on pathology results, or if changes/symptoms in new or existing lesions develop. Patient elects to received results as above. Patient verbally expressed understanding. I specifically asked the patient at the end of the visit if there were any further concerns or questions and the patient verbally stated there were no other concerns or questions. All questions were answered and all concerns were addressed. Note initiated by MARIA C SIMPSON LPN I am documenting this encounter acting as the scribe for and in the presence of Eliza Wood PA-C (Bri) I performed the above scribed service and agree with the accuracy of the documentation in this encounter. Reviewed and signed by Eliza Wood PA-C (Bri) Dermatology [facility] Patient seen in conjunction with staff physician: Leni Moon MD Section of Dermatology [facility] Leni Moon MD - 07/31/2016 2:00 PM EDT Exam shows red scaly plaques on the elbows, and overlying PIP and MCP joints on the fingers, also involving fingertips. No eyelid, scalp, thigh involvement. Nailfold capillaries are normal. No nail pitting. Strength is good, no complaint of weakness. Favor psoriasis, given distribution (Gottran's-like), recommended biopsy to r/o interface dermatitis. Patient seen in conjunction with Eliza Wood PA-C (Bri) Signed by: LENI MOON MD Section of Dermatology [facility] documented in this encounter Plan of Treatment Upcoming Encounters Date Type Specialty Care Team Description 10/31/2021 Office Visit Rheumatology Bert Loera MD [facility] DR [facility] [place] [place] [address] (Wo rk) documented as of this encounter Procedures Procedure Name Priority Date/Time Associated Diagnosis Comme nts SPECIMEN TO Routine 07/31/2016 3:28 PM Dermatitis Results f or this PATHOLOGY (NON-OR) EDT procedure are in the results section. SURGICAL PATHOLOGY Routine 07/31/2016 3:28 PM Res ults for this REPORT EDT procedure are i n the results section. documented in this encounter Results Surgical Pathology Report (07/31/2016 3:28 PM EDT) Component Value Ref Test Analysis Performed At [facility] Range Method Time Signature Surgical [id number] ?Location: [facility] Report The signing pathologist has (i) examined the relevant preparation(s) for the [facility] specimen(s) and (ii) rendered or confirmed the diagnosis(es) . HOSPITAL LABORATORY . ?Surgic al Pathology DIAGNOSIS Skin, left medial dorsal hand, punch biopsy: Dermatitis with spongiotic and mixed features, (see Discussi on). Electronically signed by: ??Alejandra Lester MD Verified: ??08/06/2016 ?Dermatopathologist DISCUSSION It is difficult to definitively determine the main process. There is parakeratotic scale, epider mal acanthosis, foci of spongiosis with Langerhans ?' histiocytes, subtle/equivocal vacuolar interfac e alteration, and superficial perivascular ??lymphohistio cytic inflammation with scattered eosinophils. 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 There are rare necrotic jazzmine tinocytes, and a co-existant interface process cannot be ruled out. Psoriasis can show spongioti c features on acral sites, but there are not enough findings of psoriasis to make that diagnosis. This case was also reviewed by an additional intradepartmental dermatopathologist for consensus diagnosis. ADDITIONAL STUDIES PAS fungal stain is negative . ??The basement membrane appears mildly prominent on this stain. CLINICAL INFORMATION Specimen Submitted: A - Skin, left medial dorsal hand, punch (1) Clinical History: Bilateral elbows, dorsal cartwright ds, knees and dorsal feet; psoriasiform plaques over bony prominences; no nail pittin g; no eyelid erythema; no rashes on the flank, chest, neck or ears; scalp is clear; no facial rash Clinical Diagnosis: Rule out psoriasis versus atypical dermatomyositis SPECIMEN PROCESSING A - Labeled/Fixative: Left medial dorsal hand, formalin. Quantity/Size: Single, 0.4 x 0.4 cm. Tissue Description: Punch of pruitt shiny skin, excised to a depth of 0.15 cm. Sections/Processing: Bisected. (T1) ??ksb Specimen (Source) Anatomical Collection Method Collection Time Re ceived Time Location / / Volume Laterality 07/31/2016 3:28 PM EDT Eliza GUAN PATHOLOGY/CYTOLOGY ORDERABLE S Performing Organization Address City/[facility]/[place] [address] Specimen to Pathology (NON-OR) (07/31/2016 3:28 PM EDT) Specimen Anatomical Collection Method Collection Time Receive d Time (Source) Location / / Volume Laterality AP Specimen 07/31/2016 3:28 PM 7 6:18 EDT PM EDT Narrative [facility] - 07/31/2016 6:18 PM EDT Specimen requisition ordered. ??Separate Pathology report to follow Resulting Agency Comment Spec In Lab Leni Moon MD PATHOLOGY/CYTOLOGY ORDERABLE S Performing Organization Address City/[facility]/[place] [address] documented in this encounter Visit Diagnoses Diagnosis Dermatitis Contact dermatitis and other eczema, due to unspecified cause documented in this encounter Care Teams Rural Carrier Relationship Specialty Start Date End Date Kristyn Whitehead MD PCP - General 01/16/10 [address] [place] [address] documented as of this encounter
--- OUTSIDE RECORDS SUMMARY | 2021-08-22 09:43 | XMS_ITS | Encounter Summary ---
:1945 [place] [address] Care Team Providers Name Role Phone Kristyn Whiteheda MD Primary Care Provider Encounter Details Date Type Department Care Team Description 09/12/2017 External Results Inter[place] [address] Social History Tobacco Use Types Packs/Day Years Used Date Former Smoker Smokeless Tobacco: Never Used Sex Assigned at Date Recorded Not on file documented as of this encounter Plan of Treatment Upcoming Encounters Date Type Specialty Care Team Description 10/31/2021 Office Visit Rheumatology Bert Loera MD [facility] RHEUMATOLOGY [place], [place] [address] (Wo rk) documented as of this encounter Procedures Procedure Name Priority Date/Time Associated Diagnosis Comme nts ECG SCAN Routine 09/12/2017 documented in this encounter Results Scan Doc: ECG (09/12/2017) Narrative This result has an attachment that is no t available. Historical Provider MD [facility] MGR SCAN EXT ORDR/RSLT documented in this encounter Visit Diagnoses Not on filedocumented in this encounter Care Teams Compressor Technician Relationship Specialty Start Date End Date Kristyn Whitehead MD PCP - General 01/16/10 [address] [place] [address] documented as of this encounter
--- OUTSIDE RECORDS SUMMARY | 2021-08-22 09:43 | XMS_ITS | Encounter Summary ---
:1945 Author Organization [facility] [place] [address] Care Team Providers Name Role Phone Kristyn Whitehead MD Primary Care Provider Reason for Visit Consultation (Routine) - Closed Specialty Diagnoses / Procedures Referred By Contact Refer red To Contact Rheumatology Diagnoses psoriasis Sherri Robb, [facility] Rheumatology 5c PA [address] [address] [place] [address] Referral ID Status Reason Start Date Expiration Date Visits V isits Requested Authorized [id number] Closed Consult, 07/23/2017 07/23/2018 1 1 [facility] Encounter Details Date Type Department Care Team Description 09/05/2017 Office Visit Rheumatology at [facility] Alton Loera Psoriasiform dermatitis; [facility] MD [place] Arthralgia, unspecified joint; [facility] Chronic right-sided low [place] [address] RHEUMATOLOGY DEPT. [phone] [place], [place] [address] (Wo rk) Social History Tobacco Use Types Packs/Day Years Used Date Former Smoker Smokeless Tobacco: Never Used Sex Assigned at Date Recorded Not on file documented as of this encounter Last Filed Vital Signs Vital Sign Reading Time Taken Comments Blood Pressure 131/93 09/05/2017 2:16 PM EDT Pulse 69 09/05/2017 2:16 PM EDT Temperature 36.6 ??C (97.9 ??F) 09/05/2017 2:16 PM EDT Respiratory Rate - - Oxygen Saturation 97% 09/05/2017 2:16 PM EDT Inhaled Oxygen Concentration - - Weight 83 kg (183 lb) 09/05/2017 2:16 PM EDT Height 165.1 cm (5' 5) 09/05/2017 2:16 PM EDT Body Mass Index 30.45 09/05/2017 2:16 PM EDT documented in this encounter Patient Instructions Patient InstructionsAlton Loera MD - 09/05/2017 2:00 PM EDT Get labs today at 3L. Call or [facility] for results if you don't hear from us by next week. Further recommendations pending results. In meantime, start prednsione 20 mg (= four 5 mg tabs) a day. Faxed into [facility]. Only take Tylenol on top of the prednisone. Don't take anti-inflammatories (NSAIDs) like ibuprofen, Aleve, etc. Call and report next week. If better, we may start slow taper and add another drug. Follow up in 4 months, but stay in touch. Call if problems. documented in this encounter Progress Notes Alton Loera MD - 09/05/2017 2:00 PM EDT Rheumatology Clinic: Dr. Loera 09/05/2017 [id number] July Sindi is a 72 y.o. female patient whom we see in consultation for Kristyn Whitehead MD inevaluation of skin rash and joint pain. The skin rash has been going on for a couple of years. It began in the summer of 2015 and has affected her hands, elbows, and feet, but not her scalp, face, or torso. It is a red, itchy, plaquish rash with scaling that predominantly affects the dorsal surfaces of her IP's and MCP joints as well as her fingertips, her extensor elbows, and around her first MTP joints. The most problematic area by far is her hands where in addition to the rash she has some secondary dryness and cracking of her skin such that her fingertips are always painful despite her using epic kaleidoscope analyst ious amounts of moisturizing cream. In addition it has affected her nails as they have become fragile and pitted. She has been seen several times by dermatology here and has undergone 2 biopsies. She has also been seen by dermatology and allergy down in [place], and no one has come up with an answer. The 2 biopsy reports from up here are as below. She has been tried on the following topical agents for this: [place], bag balm, CBD oil and salve, susan extract, Excipial, Eucrisia, clobetasol, triamcinolone, Protopic, tacrolimus, and Vaseline jelly. The topicals worked to some degree, but not completely, and of course if she stops them, everything comes right back. She has also been on 3 rounds of prednisone. She is not sure of the exact dose, but believes it was not that high. The first round started by her PCP was for 2 weeks. It was extraordinarily helpful. However within a week of stopping,the rash came back. She had 2 subsequent one-week trials basically with the same result. She has notbeen put on any other systemic medication. She has had some laboratory testing, including a normal CBC and negative EV and JOANN. In terms of her joint pain, she has some pain in her hand joints, but the pain she has from this skin rash is more concerning, especially with the dryness and cracking. She has a chronic low back pain,which is right paraspinal at the lumbosacral junction and is present most of the time now. This has been going on for years. She has been told she has degenerative arthritis in the spine. More recentlyover the last year or so, she has had left SI pain. When I asked her who told her it was the SI joints that was causing the pain, she could not quite recall, but she does point out the area and it isgenerally speaking near the left SI joint. But she also has pain in the right SI joint intermittently. Despite the close proximity of these low back pains, she says she can distinguish her chronic backpain from the more recent SI pain. She does have significant morning stiffness lasting 30-45 minutes. That is also relatively new. That involves the back, but is also more generalized. She says that when she was on the prednisone for the skin rash, not only that improved, but she felt euphoric andher joint pain was for the most part gone. Interestingly her SI pain seems better with movement including walking. She did have x-rays last fall and was told she had arthritis in her low back. In addition to the pains described above, she can also have a low back pain that radiates into the left calf somewhat and has been associated with numbness in the left lateral calf. She has been to physical therapy for that and it helped. Medication-dolan, she has been using flurbiprofen. She has coronary disease and had a stent and then was on Plavix for a while, but she is off of that now. She is on a baby aspirin a day. She has also tried topicals including Biofreeze and that was somewhat helpful. She also takes iezm-sey-ycbaxad ibuprofen, Tylenol, Aleve. They also help her musculoskeletal pain to some extent, but she does not thinkof one being more effective than the others. On review of systems, she denies Raynaud's, sicca syndrome, hair loss, oral or nasal ulcers, weight loss, fever, chills, night sweats. She did have a miscarriage at 12 weeks - her only . She has never had any blood clots. In general, she feels pretty well. Of note, the sun does not influence her skin rash one way or the other. Past Medical History Rash. History of a number of food allergies that will cause anaphylaxis only if she is active after eating. In other words, according to her, she can eat the same food and had no problem with that as long asshe sits down. Coronary artery disease status post stent placement here. Dyspnea on exertion presumably related to her coronary disease. Possible psoriasis. Hypertension. Osteopenia. History of helical factor pylori infection. History of B12 deficiency. Anxiety. Insomnia. Hyperlipidemia. Chronic low back pain. Depression. Hypothyroidism. History of headaches. Normal colonoscopy in 2015. Status post cataract surgery in 2010. Status post stent placement in 2009. History of broken elbow. No orthopedic surgery. Medications Medications 09/05/17 1421 Medication Sig Taking? aspirin 81 mg Tablet, Delayed Release (E.C.) Take 81 mg by mouth daily. Yes cholecalciferol, Vitamin D3, (VITAMIN D-3) 2,000 unit Tablet Take by mouth daily. Yes cyanocobalamin, vitamin B-12, 1,000 mcg/mL Solution Inject as directed. Every 3 weeks Yes ciprofloxacin (CIPRO) 250 mg Tablet take 1 tablet by mouth twice a day Yes flurbiprofen (ANSAID) 100 mg Tablet as needed. Yes pantoprazole (PROTONIX) 40 mg Tablet, Delayed Release (E.C.) daily. Yes UNABLE TO FIND Uses CBD oil and CBD salve Yes levothyroxine (SYNTHROID) 75 mcg Tablet Take [...] D3) 600 mg(1,500mg) -200 unit Tab Yes predniSONE (DELTASONE) 5 mg Tablet Take 4 tablets by mouth daily. tacrolimus (PROTOPIC) 0.1 % Ointment Apply to affected areas on hands, elbows, and feet twice daily on weekdays with occlusion at night Patient not taking: Reported on 09/05/2017 Social History She is . She was born in [facility] and currently lives in [facility]. She is retired. She drinks 2 cups of coffee a day. She smoked, but stopped in 1987. She drinks 4-6 alcoholic beverages a week. She denies a problem with alcohol or drugs. She exercises by walking when she is able to. She sleeps 8-10 hours a night and does feel rested. She has no children. Family History Father at age 83. Mother at age 93. Her parents had alcoholism. Her father possibly had psoriasis. Her mother had osteoarthritis. Her brother had cancer. Review of Systems Positive for generalized fatigue, high blood pressure, shortness of breath related to CAD, heartburnpreviously on pantoprazole, and depression. Otherwise, the rheumatology, cardiology, pulmonary, GI, , neurology, dermatology, and hematology review of systems is negative or non-contributory. Physical Exam: She is a very pleasant, outgoing woman in no acute distress, with a good recollectionof her medical history. She has a very hard time sitting still and says she has been that way for a long time and it is not related to the itchy rash. Blood pressure (!) 131/93, pulse 69, temperature 36.6 ??C (97.9 ??F), temperature source Oral, height 165.1 cm (5' 5), weight 83 kg (183 lb), SpO2 97 %. Skin: She has a raised erythematous plaque-like rash with some scale on the dorsum of her MCPs, PIPs, and to a lesser extent DIPs. This has the appearance of Gottron's. However she also has extensive dryness and cracking to her distal fingers including the area around the nailbeds. She also has some mild nailbed capillary changes. No telangiectasias or sclerodactyly. No vasomotor hyperreactivity. Shehas patches on the extensor surface of her elbows. Her scalp is spared as is her face. The involvement of the feet is relatively mild. She has prominent bunions and overlying them is a mild, erythematous scaly rash. I would not make much of this in the absence of the rash on her hands and elbows. HEENT: PERRL, EOM+, no eye inflammation, no oral ulcers, mildly diminished moisture. Neck: Supple. No lymphadenopathy or thyromegaly. Lungs: Clear. Heart: Regular rhythm and rate with a 1/6 to 2/6 FRANCISCO heard at the right upper sternal border, nonradiating. No gallop or rub. Abdomen: Benign. No masses, tenderness, or organomegaly. Extremities: No edema. Good distal pulses. Musculoskeletal: No synovitis. She does have fairly typical degenerative changes, affecting her DIP and PIP joints as well as her thumb joints. Her MCPs and wrists are spared. Elbows move well. Her shoulders have mildly decreased range of motion, but no pain on range of motion. Her hips move well. Herknees have crepitance bilaterally, slightly worse on the right. The crepitance seems to be coming from the patellofemoral compartment. There is no significant warmth or effusion in either knee. Her ankles are fine. Midfoot and distal foot show mild degenerative changes without synovitis. Neuro: 5/5 proximal muscle strength in the upper and lower extremities. DTRs 2+ and symmetrical. Toes downgoing. Negative Romberg. Assessment & Plan: We had a long discussion about her situation. I told her upfront that if the dermatologists cannot figure out exactly what her rashes represent, then I certainly cannot. However this has been going on for couple of years, so I doubt this is an indication of an underlying life- or organ- threatening systemic illness. She looks fine sitting in the exam room today. It is just that her hands in particular are driving her crazy. We know that prednisone works, suggesting an inflammatory and/or allergic component here. We will go ahead and check some labs and some x-rays trying to get a definitive diagnosis here, but I suspect we will not. We went ahead and put her on 20 mg of prednisone a day. I asked her to check back next week and report on whether or not that dose is effective.We will also go over her testing at that time. We will then have to make a decision as what to do next. If she is better, we will taper the prednisone and probably add Plaquenil or methotrexate. If sheis not better, we would probably increase her prednisone until we captured her skin disease, and then choose one of those drugs and begin tapering at that point. She understood the plan. I will see her in follow-up in 4 months, but we will stay in touch as we get this approach started. We gave the patient the following recommendations: Patient Instructions Get labs today at 3L. Call or [facility] for results if you don't hear from us by next week. Further recommendations pending results. In meantime, start prednsione 20 mg (= four 5 mg tabs) a day. Faxed into [facility]. Only take Tylenol on top of the prednisone. Don't take anti-inflammatories (NSAIDs) like ibuprofen, Aleve, etc. Call and report next week. If better, we may start slow taper and add another drug. Follow up in 4 months, but stay in touch. Call if problems. Orders Placed This Encounter Procedures ??? XR Hands Min 3 views Bilat ??? XR Lumbar Spine 2 Or 3 Views (Generic) ??? Sedimentation rate ??? CRP, acute inflammation ??? Cardiac Enzymes (LEB/CGP) ??? Myositis Antibody Panel Plus ??? Urinalysis with reflex Culture Visit Diagnoses: 1. Psoriasiform dermatitis 2. Arthralgia, unspecified joint 3. Chronic right-sided low back pain without sciatica Results for EMANI DELONG ( ) Ref. Range 09/05/2017 16:05 09/05/2017 16:07 Sed Rate Latest Ref Range: 0 - 20 mm/hr 8 Troponin-T Latest Ref Range: 0.00 - 0.00 ng/mL <0.01 CK, Total Latest Ref Range: 0 - 160 unit/L 154 CRP Latest Ref Range: <=4.9 mg/L 1.3 Color UA Latest Ref Range: Yellow Yellow Appearance UA Latest Ref Range: Clear Hazy (A) Spec Camby UA Latest Ref Range: 1.002 - 1.030 1.017 pH UA Latest Ref Range: 5.0 - 8.0 5.0 Protein UA Latest Ref Range: Negative mg/dL Negative Glucose UA Latest Ref Range: Negative mg/dL Negative Ketones UA Latest Ref Range: Negative mg/dL Negative Bilirubin UA Latest Ref Range: Negative mg/dL Negative Urobilinogen UA Latest Ref Range: Normal mg/dL Normal Blood UA Latest Ref Range: Negative mg/dL Negative Leukocytes UA Latest Ref Range: Negative mcL Large (A) Nitrite UA Latest Ref Range: Negative Negative WBC UA Latest Ref Range: 0 - 5 /HPF 55 (H) RBC UA Latest Ref Range: 0 - 4 /HPF 6 (H) Bacteria UA Latest Ref Range: None /HPF Rare (A) Squam Epith UA Latest Ref Range: <=4 /HPF 2 Trans Epith UA Latest Ref Range: <=1 /HPF <1 Culture Reflexed Unknown Yes URINE CULTURE Unknown See below ### ### 50,000-99,000 cfu/ml Corynebacterium urealyticum (Group D-2) 1,000-9,000 cfu/ml mixed mucosal bandar Susceptibility testing not routinely performed for Coagulase Negative Staphylococcus species and other Gram Positive organisms from urine. EXAMINATION: XR HANDS MIN 3 VIEWS BILAT CLINICAL HISTORY: Psoriasiform dermatitis and arthralgia, with clinical concern for psoriatic arthritis in the hands. TECHNIQUE: AP, lateral, oblique, and ball-catcher's views of the bilateral hands. COMPARISON: None ?? FINDINGS: There is subchondral sclerosis and joint space narrowing of the bilateral first carpometacarpal joints and scattered interphalangeal joints. Diffusely decreased bone mineralization. No fracture or dislocation. No erosions. No radiographically evident soft tissue calcification. No acroosteolysis or periostitis. ?? IMPRESSION 1. 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 2. No radiographic evidence of inflammatory arthritis. ?? I have personally reviewed the image(s) and the residents interpretation and agree with the findings, Zonia Yulissa at 09/05/2017 5:06 PM ?? EXAMINATION: XR LUMBAR SPINE 2 OR 3 VIEWS (GENERIC) CLINICAL HISTORY: Chronic LBP. Recent left > right SI area pain. SI arthritis, facet disease, both, etc.? TECHNIQUE: Lumbar spine 2 views COMPARISON: None ?? FINDINGS: The lumbar vertebra are normally aligned but there is a slight curvature of the lower lumbar spine convex to the left centered at L4. There is significant narrowing of the L5-S1 disc space. The pedicles appear intact, there are sclerotic changes at the L4-5 and L5-S1 facet joints. Sacroiliac joints are unremarkable. A considerable amount of stool seen in the colon ?? IMPRESSION There are degenerative sclerotic changes at the L4-5 and L5-S1 facet joints. ??Significant disc space narrowing compatible with degenerative disc disease L5-S1 ? Skin bx #1: DIAGNOSIS Skin, left medial dorsal hand, punch biopsy: Dermatitis with spongiotic and mixed features, (see Discussion). Electronically signed by: ??Alejandra Lester MD Verified: ??08/06/2016 ?Dermatopathologist DISCUSSION It is difficult to definitively determine the main process. There is ??parakeratotic scale, epidermal acanthosis, foci of spongiosis with Langerhans ?' ??histiocytes, subtle/equivocal vacuolar interface alteration, and superficial ??perivascular ??lymphohistiocytic inflammation with scattered eosinophils. ??Overall, ??spongiotic dermatitis is favored. There are rare necrotic keratinocytes, and a co-existant interface process cannot be ??ruled out. Psoriasis can show spongiotic features on acral sites, but there are not enough ??findings of psoriasis to make that diagnosis. This case was also reviewed by an additional intradepartmental dermatopathologist for ??consensus diagnosis. Skin bx #2: DIAGNOSIS A. Skin, left lateral ankle, shave biopsy: - Spongiotic dermatitis (see discussion) B. Skin, right distal elbow, punch biopsy: - Spongiotic dermatitis (see discussion) Electronically signed by: ??Александр WHITE, Adan Rodriguez Verified: ??08/16/2016 ?Dermatopathologist DISCUSSION The predominant finding in both samples is spongiosis. 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 The differential diagnosis is broad and would include an allergic or ??eczematous processes versus an id or drug-type dermal hypersensitivity reaction (the ??absence of eosinophils provides less support for the latter). The present findings ??do not suggest??connective tissue disease or psoriasis. The present findings are not diagnostic of a lymphoproliferative process, although ??there is brisk exocytosis relative to the degree of spongiosis. ? Given that ??lymphoproliferative processes early in their evolution can sometimes resemble more ??common inflammatory phenomena ??, paired clonality studies could be performed if there ??is significant clinical concern for this possibility. documented in this encounter Plan of Treatment Upcoming Encounters Date Type Specialty Care Team Description 10/31/2021 Office Visit Rheumatology Bert Loera MD [facility] DR RHEUMATOLOGY [place], [place] [address] (Wo rk) documented as of this encounter Procedures Procedure Name Priority Date/Time Associated Diagnosis Comme nts URINALYSIS MICROSCOPIC Routine 09/05/2017 4:07 Re sults for this EXAM PM EDT procedure are i n the results section. URINALYSIS WITH REFLEX Routine 09/05/2017 4:07 Psoriasiform Re sults for this CULTURE PM EDT dermatitis procedure are i n the results section. URINE CULTURE Routine 09/05/2017 4:07 Results for this PM EDT procedure are i n the results section. CRP, ACUTE Routine 09/05/2017 4:05 Psoriasiform Results for this INFLAMMATION PM EDT dermatitis procedure are i n the results section. MYOSITIS ANTIBODY Routine 09/05/2017 4:05 Psoriasiform Results for this PANEL PLUS PM EDT dermatitis procedure are i n the results section. CARDIAC ENZYMES Routine 09/05/2017 4:05 Psoriasiform Results f or this ([facility] PM EDT dermatitis procedure are i n the results section. SEDIMENTATION RATE Routine 09/05/2017 4:05 Psoriasiform Result s for this PM EDT dermatitis procedure are i n the results section. documented in this encounter Results (ABNORMAL) Urine culture (09/05/2017 4:07 PM EDT) Component Value Ref Test Analysis Performed At Patholo gist Range Method Time Signature Urine 50,000-99,000 cfu/ml Corynebacterium urealyticum (Group D-2) PIOTR Culture 1,000-9,000 cfu/ml mixed mucosal bandar [employer] Susceptibility testing not routinely performed for Coagula se Negative [facility] Staphylococcus species and other Gram Positive organisms f rom urine. HOSPITAL (A) LABORATORY Organism Corynebacterium PIOTR urealyticum (Group CELESTINA D-2) (A) [facility] Specimen Anatomical Collection Method Collection Time Receive d Time (Source) Location / / Volume Laterality Urine specimen 09/05/2017 4:07 PM 018 4:53 (specimen) EDT PM EDT Resulting Agency Comment Spec In Lab Alton Loera MD MICROBIOLOGY - GENERAL ORDER ERIKA Performing Organization Address City/State/[place] [address] (ABNORMAL) Urinalysis Microscopic Exam (09/05/2017 4:07 PM EDT) Analysis Performed At Patho logist Time Signature RBC UA 6 (H) 0 - 4 /HPF [facility] WBC UA 55 (H) 0 - 5 /HPF [facility] Bacteria UA Rare (A) None /HPF [facility] Squam Epith UA 2 <=4 /HPF [facility] Trans Epith UA <1 <=1 /HPF [facility] Specimen Anatomical Collection Method Collection Time Receive d Time (Source) Location / / Volume Laterality Urine specimen 09/05/2017 4:07 PM 018 4:19 (specimen) EDT PM EDT Resulting Agency Comment Spec In Lab Alton Loera MD URINE ORDERABLES Performing Organization Address City/State/[place] [address] (ABNORMAL) Urinalysis with reflex Culture (09/05/2017 4:07 PM EDT) [facility] Method Time Signature Glucose UA Negative Negative [facility] mg/dL [facility] Protein UA Negative Negative [facility] mg/dL [facility] Bilirubin UA Negative Negative [facility] mg/dL [facility] Comment: Clinical correlation required for positi ve Urine Bilirubin results as false positive may occur with some drugs and d rug related products. If a false positive is suspected a serum total bili hammer should be considered if clinically indicated. Urobilinogen UA Normal Normal mg/dL [facility] pH UA 5.0 5.0 - 8.0 [facility] Blood UA Negative Negative mg/dL [facility] Ketones UA Negative Negative mg/dL [facility] Nitrite UA Negative Negative [facility] Leukocytes UA Large (A) Negative [facility] LAB[facility]ATORY Appearance UA Hazy (A) Clear [facility] Spec Camby UA 1.017 1.002 - 1.030 [facility] Color UA Yellow Yellow [facility] Culture Reflexed Yes [facility] Specimen Anatomical Collection Method Collection Time Receive d Time (Source) Location / / Volume Laterality Urine specimen 09/05/2017 4:07 PM 018 4:19 (specimen) EDT PM EDT Resulting Agency Comment Spec In Lab Alton Loera MD URINE ORDERABLES Performing Organization Address City/[facility]/[place] [address] Myositis Antibody Panel Plus (09/05/2017 4:05 PM EDT) Component Value Ref Test Analysis Performed At [facility] Range Method Time Signature Myositis Ab PIOTR Panel Test ? Result ? Flag ??Unit ?? RefValue [place] [address] ??Mi-2 ? Negative ?Negative LABORATORY ??PL-12 ?Negative ?Negative ??PL-7 ? Negative ?Negative ??EJ ? Negative ?Negative ??OJ ? Negative ?Negative ??SRP ?Negative ?Negative ??Ku ? Negative ?Negative ??U2 snRNP ? Negative ?Negative ??Anti-PM/Scl-100 Ab ? <20 ?Units ??<20 ??Anti-Haley-1 Ab ? <20 ?Units ??<20 ? ADDITIONAL INFORMATION ------ ?EIA Interpretation: ?Negative ? <20 Units ?Weak Positive ?20-39 Units ?Moderate Positive ??40-80 Units ?Strong Positive ?>80 Units ?This panel was developed and its performance ?characteristics validated by [facility]. There is no FDA appr claudette ?assay for the above tests. As a lab developed test (LD T), ?approval or clearance by the FDA is not required. This test ?may be used for clinical purposes and should not be ?regarded as investigational or for research. ?Test Performed by: ?[facility] ?[address] ?[place] [address] Specimen Anatomical Collection Method Collection Time Receive d Time (Source) Location / / Volume Laterality Blood specimen 09/05/2017 4:05 PM 018 8:44 (specimen) EDT AM EDT Resulting Agency Comment Spec In Lab Alton Loera MD IMMUNOLOGY ORDERABLES Performing Organization Address City/State/[place] [address] Cardiac Enzymes (LEB/CGP) (09/05/2017 4:05 PM EDT) P athologist Signature Troponin-T <0.01 0.00 - 0.00 [facility] ng/mL [facility] Comment: The 99th percentile for Troponin T is le ss than 0.01 ng/mL, any detectable cTnT concentration using this assay should be considered elevated. According to the third universal definit ion of myocardial infarction the following criteria with a clinical prese ntation consistent with acute myocardial ischemia meets the diagnosis for a myocardial infarction (MO). Detection of a rise and/or fall of [...] additional sample may be indicated. Reference: Third [place] Definition of Myocardial Infarction. Journal of the [place] College [employer]iology 2012;60:1581-98 CK, Total 154 0 - 160 unit/L [facility] Specimen Anatomical Collection Method Collection Time Receive d Time (Source) Location / / Volume Laterality Blood specimen 09/05/2017 4:05 PM 018 4:16 (specimen) EDT PM EDT Resulting Agency Comment Spec In Lab Alton Loera MD CHEMISTRY ORDERABLES Performing Organization Address City/[facility]/[place] [address] CRP, acute inflammation (09/05/2017 4:05 PM EDT) P athologist Signature CRP 1.3 <=4.9 mg/L [facility] Specimen Anatomical Collection Method Collection Time Receive d Time (Source) Location / / Volume Laterality Blood specimen 09/05/2017 4:05 PM 018 4:16 (specimen) EDT PM EDT Resulting Agency Comment Spec In Lab Alton Loera MD CHEMISTRY ORDERABLES Performing Organization Address City/[facility]/[place] [address] Sedimentation rate (09/05/2017 4:05 PM EDT) P athologist Signature Sed Rate 8 0 - 20 [facility] mm/hr [facility] Specimen Anatomical Collection Method Collection Time Receive d Time (Source) Location / / Volume Laterality Blood specimen 09/05/2017 4:05 PM 018 4:16 (specimen) EDT PM EDT Resulting Agency Comment Spec In Lab Alton Loera MD HEMATOLOGY ORDERABLES Performing Organization Address City/[facility] [place] [address] XR Hands Min 3 views Bilat (09/05/2017 3:54 PM EDT) Anatomical Region Laterality Modality Hand Bilateral Digital Radiography Specimen (Source) Anatomical Location Collection Method / Collectio n Time Received Time / Laterality Volume Impressions 09/05/2017 5:06 PM EDT 1. ??Osteoarthropathy of the bilateral first CMC joints and scattered bilateral IP joints. 2. ??No radiographic evidence of inflamm atory arthritis. I have personally reviewed the image(s) and the residents interpretation and agree with the findings, Zonia Duenas at 08/24 5:06 PM Narrative 09/05/2017 5:06 PM EDT EXAMINATION: XR HANDS MIN 3 VIEWS BILAT CLINICAL HISTORY: Psoriasiform dermatiti s and arthralgia, with clinical concern for psoriatic arthritis in the hands. TECHNIQUE: AP, lateral, oblique, and ball-catcher's views of the bilateral hands. COMPARISON: None FINDINGS: There is subchondral sclerosis and joint space narrowing of the bilateral first carpometacarpal joints and scattered int erphalangeal joints. Diffusely decreased bone mineralization. No fracture or disl ocation. No erosions. No radiographically evident soft tissue logan cification. No acroosteolysis or periostitis. Procedure Note Zonia Duenas MD - 09/05/2017Formatting o f this note might be different from the original. EXAMINATION: XR HANDS MIN 3 VIEWS BILAT CLINICAL HISTORY: Psoriasiform dermatiti s and arthralgia, with clinical concern for psoriatic arthritis in the hands. TECHNIQUE: AP, lateral, oblique, and ball-catcher's views of the bilateral hands. COMPARISON: None FINDINGS: There is subchondral sclerosis and joint space narrowing of the bilateral first carpometacarpal joints and scattered int erphalangeal joints. Diffusely decreased bone mineralization. No fracture or disl ocation. No erosions. No radiographically evident soft tissue logan cification. No acroosteolysis or periostitis. IMPRESSION 1. Osteoarthropathy of the bilateral fir st CMC joints and scattered bilateral IP joints. 2. No radiographic evidence of inflammat ory arthritis. I have personally reviewed the image(s) and the residents interpretation and agree with the findings, Zonia Duenas at 08/24 5:06 PM Alton Loera MD IMG DX ORDERABLES XR Lumbar Spine 2 Or 3 Views [...] seen in the colon Procedure Note Rebel Puente MD - 09/05/2017Format ting of this note [...] right-sided low back pain withou t sciatica Psoriasiform dermatitis Other psoriasis and similar disorders Arthralgia, unspecified joint Chronic right-sided low back pain withou t sciatica Psoriasiform dermatitis Other psoriasis and similar disorders Arthralgia, unspecified joint documented in this encounter Care Teams Die Lay Out Worker Relationship Specialty Start Date End Date Kristyn Whitehead MD PCP - General 01/16/10 [address] [place] [address] documented as of this encounter
--- OUTSIDE RECORDS SUMMARY | 2021-08-22 09:43 | XMS_ITS | Encounter Summary ---
:1945 Author Organization [facility] [place] [address] Care Team Providers Name Role Phone Kristyn Whitehead MD Primary Care Provider Encounter Details Date Type Department Care Team Description 07/01/2016 Telephone Dermatology at [facility] Eliza Mclaughlin PA [address] [facility] [place] [address] [facility]-DERMATOLOGY [phone] [place], [place] [address] (Wo rk) Social History Tobacco Use Types Packs/Day Years Used Date Never Assessed Sex Assigned at Date Recorded Not on file documented as of this encounter Miscellaneous Notes Telephone Encounter - Galina Huang - 07/01/2016 3:59 PM EDT I received a voicemail from Emani Delong stating she wanted her prescription to be sent to the [facility] in [facility] documented in this encounter Plan of Treatment Upcoming Encounters Date Type Specialty Care Team Description 10/31/2021 Office Visit Rheumatology Bert Loera MD [facility] RHEUMATOLOGY [place] [address] (Wo rk) documented as of this encounter Visit Diagnoses Not on filedocumented in this encounter Care Teams Lower School Spanish Teacher Relationship Specialty Start Date End Date Kristyn Whitehead MD PCP - General 01/16/10 [address] [place] [address] documented as of this encounter
--- OUTSIDE RECORDS SUMMARY | 2021-08-22 09:43 | XMS_ITS | Encounter Summary ---
:1945 Author Organization [facility] [place] [address] Care Team Providers Name Role Phone Kristyn Whitehead MD Primary Care Provider Reason for Visit Reason Comments Dermatitis Encounter Details Date Type Department Care Team Description 06/28/2016 Office Visit Dermatology at Christina Wallace MD [facility] [address] [place] [address] Eliza Wood PA [facility] [address] [place] [address] dermatitis [address] [place] [address] Social History Tobacco Use Types Packs/Day Years Used Date Never Assessed Sex Assigned at Date Recorded Not on file documented as of this encounter Patient Instructions Patient InstructionsEliza Wood PA - 06/28/2016 11:30 AM EDT Clobetasol ointment: Apply twice daily on weekends only, under cotton glove occlusion at night. Protopic ointment: Apply twice daily on weekdays only, under cotton glove occlusion at night. Discontinue urea. Check EV today. Return in 1 month for follow-up. documented in this encounter Progress Notes Eliza Wood PA - 06/28/2016 11:30 AM EDT Images from the original note were not included. DERMATOLOGY - NEW PATIENT NOTE Date of service: 06/28/2016 Emani Delong : 1945 Dermatology Physician Contact Center Associate Note: Eliza (Lakeshia) FOX Wood Chief Complaint Patient presents with ??? Dermatitis Emani Delong is a 71 y.o. female. This is a new patient to me and to the clinic. The patient isself-referred. HPI: Ms. Delong is a 71 y.o. female who presents for a rash on the hands, feet and elbows present forabout 2 years. This started with itchy spots on the hands which progressed to the elbows and feet. Has been using clobetasol ointment twice daily for the entire winter with little result until April and now she is spot treating. Denies personal or family history of psoriasis, lupus or other autoimmunedisorders. Denies joint pain. She plays golf over the wong in [place] and wears gloves on both hands since her fingers have started cracking. Denies photosensitivity or changes in rash with sun exposure. She is occasionally very itchy. Past Skin History: Eczema Medical History: Patient Active Problem List Diagnosis Code ??? CIS - Anxiety ??? CIS - Chest pain ??? CIS - Depression ??? CIS - Hyperlipidemia ??? CIS - Hypothyroid ??? CAD (coronary artery disease) I25.10 No Defibrillator/pacemaker Yes Anti-coagulants: Plavix Medications: Current Outpatient Prescriptions Medication Sig Dispense Refill ??? levothyroxine (SYNTHROID) 75 mcg Tablet Take [...] 200 unit Tab No current facility-administered medications for this visit. Allergies: Allergies Allergen Reactions ??? Legumes Anaphylaxis ??? Lettuce Anaphylaxis ??? Soy Anaphylaxis ??? Sulfa (Sulfonamide Antibiotics) CIS - Hives ??? Tomato Anaphylaxis ??? Effexor [Venlafaxine] Other (See Comments) Lethargy Family History: No known family h/o melanoma No known family h/o atopy, psoriasis, or other skin disease Social/Occupational History: Retired Has grown children Lives 6 months in [place] and 6 [place] in [place] Likes to go golfing Review of Systems: General: Denies recent illness, chills, or fever Skin: As per HPI; no other skin concerns Examination: Constitutional: Patient was pleasant, alert, well-appearing and in no noticeable distress. Skin: A full skin examination was performed. This includes the head, neck, face and scalp including behind the ears. The chest, abdomen, back, and axillae, as well as the arms, hands, palms, fingers. Legs, feet, toes and soles were also examined. Buttocks and breasts were also examined with patient consent. Genitalia were not examined. [place] Skin Type: 2 Specific skin findings: 1. Gluteal crease clear. [place] scaly papules and plaques on hands, feet, elbows. No nail pitting. Palms are clear. No rash or coloration on eyelids, cheeks, or chest. Gluteal cleft and knees are clear. Face and scalp are clear. Photo(s) taken (by Eliza Wood PA-C (Bri)) with patient's verbal consent: Diagnosis/Assessment/Treatment Plan: 1. Mixed psoriasiform and eczematous dermatitis - I suspect this is an atypical presentation of psoriasis with prominence of body protuberances on the dorsal hands and feet, perhaps Koebnerizing to these areas. Her presentation is mixed and althoughthe lesions on her elbows are consistent with psoriasis, I considered other causes of rash on the dorsal hands and feet. I offered an EV to screen for connective tissue disease, though I do not favor an atypical dermatomyositis or lupus, and she would like to proceed with this test. I would consider a biopsy at follow-up pending Dr. Moon's evaluation and Emani's response to her new topical regimen. - D/C Urea cream - Continue with Clobetasol BID to affected areas on hands, elbows, and feet on weekends with occlusion at night - Apply Clobetasol nightly under occlusion with white cotton gloves Prescriptions: - Rx: Protopic 0.1% ointment - Apply to affected areas on hands, elbows, and feet BID on weekdays with occlusion at night (GoodRx card provided) - Labs today: EV LOS: [id number] RTC in 1 month for follow up of above with Dr. Moon; sooner PRN. Patient will schedule this appointment on her way out today. Instructed to call with questions or concerns. Patient verbally expressed understanding. I specifically asked the patient at the end of the visit if there were any further concerns or questions and the patient verbally stated there were no other concerns or questions. All questions were answered and all concerns were addressed. Note initiated by MELISSA OJEDA LPN I am documenting this encounter acting as the scribe for and in the presence of Eliza Wood PA-C (Bri) I performed the above scribed service and agree with the accuracy of the documentation in this encounter. Reviewed and signed by Eliza Wood PA-C (Bri) Dermatology [facility] Patient seen in conjunction with attending physician: Lilly Day MD Section of Dermatology [facility] Lilly Day MD - 06/28/2016 11:30 AM EDT Most plaques look classically psoriasiform (elbows, feet). The involvement on the dorsal knuckles isunusual, but she wears tight golfing gloves which may be causing frictional Koebnerization. No otherreview of systems or clinical signs suggestive of connective tissue disease so will treat as psoriasis. Consider biopsy if she does not respond as expected. Patient seen in conjunction with Eliza Wood PA-C (Bri) Signed by: LILLY DAY MD Section of Dermatology [facility] documented in this encounter Plan of Treatment Upcoming Encounters Date Type Specialty Care Team Description 10/31/2021 Office Visit Rheumatology Bert Loera MD [facility] DR RHEUMATOLOGY [place], [place] [address] (Wo rk) documented as of this encounter Procedures Procedure Name Priority Date/Time Associated Diagnosis Comme nts EV Routine 06/28/2016 12:20 PM Psoriasiform Results for this EDT dermatitis procedure are i n the results section. documented in this encounter Results EV (06/28/2016 12:20 PM EDT) P athologist Signature EV Neg Neg [facility] Specimen Anatomical Collection Method Collection Time Receive d Time (Source) Location / / Volume Laterality Blood specimen 06/28/2016 12:20 7 7:23 (specimen) PM EDT AM EDT Resulting Agency Comment Spec In Lab Lilly Day MD IMMUNOLOGY ORDERABLES Performing Organization Address City/State/ZIP Code Phon e Number [place] [id number] documented in this encounter Visit Diagnoses Diagnosis Psoriasiform dermatitis Other psoriasis and similar disorders documented in this encounter Care Teams Exchange Clerk Relationship Specialty Start Date End Date Kristyn Whitehead MD PCP - General 01/16/10 [address] [place] [address] documented as of this encounter
--- OUTSIDE RECORDS SUMMARY | 2021-08-22 09:43 | XMS_ITS | Encounter Summary ---
:1945 Author Organization [facility] [place] [address] Care Team Providers Name Role Phone Kristyn Whitehead MD Primary Care Provider Encounter Details Date Type Department Care Team Description 09/11/2017 Telephone Rheumatology at [facility] [place] [address] Social History Tobacco Use Types Packs/Day Years Used Date Former Smoker Smokeless Tobacco: Never Used Sex Assigned at Date Recorded Not on file documented as of this encounter Miscellaneous Notes Telephone Encounter - Freddy Esteban RN - 09/12/2017 1:26 PM EDT Message Received: Today ? Alton Loera MD sent to Freddy Esteban RN ? Caller: Unspecified (Yesterday, 12:15 PM) ? Labs normal, except urine shows a possible infection, although culture grew nothing concerning. Does she have any UTI symptoms? How much better would she say her skin is on the 20 mg of prednisone? 50%? 75%.....What about her aches and pains? Depending on her answer, we'll probably increase the prednisone dose or add something else, as we discussed. Let me know. Thanks, I spoke with Emnai and she states 75% skin improvement. When asked about aches and pains she states no change except last night she had nagging Left shoulder pain and has been having episodes of SOB at rest. Emani states she has had chest pressure since she awoke and is still feeling SOB. Emani has a history of Stent placement and states her indicator was SOB and Chest pressure. I have advised Emani to have someone bring her to local ER to be evaluated for potential Cardiac problem. Emani states she will ask someone to bring her to ER. She will follow up with Rheumatology after getting checked out. Telephone Encounter - Freddy Esteban RN - 09/11/2017 12:16 PM EDT Images from the original note were not included. Emani sent message via MobileOCT to Dr. Loera with same message she is calling about. Emani Eduardo Delong to Alton Loera MD ?? 09/11/17 11:44 AM What???s the next step in my care.?? Hand still peeling and raw. But some what changing hopefully better soon ? Any indications I should be aware of in the testing documented in this encounter Plan of Treatment Upcoming Encounters Date Type Specialty Care Team Description 10/31/2021 Office Visit Rheumatology Bert Loera MD [facility] DR RHEUMATOLOGY [place], [place] [address] (Wo rk) documented as of this encounter Visit Diagnoses Not on filedocumented in this encounter Care Teams Installation Drafter Relationship Specialty Start Date End Date Kristyn Whitehead MD PCP - General 01/16/10 [address] [place] [address] documented as of this encounter
--- OUTSIDE RECORDS SUMMARY | 2021-08-22 09:43 | XMS_ITS | Encounter Summary ---
:1945 Author Organization [facility] [place] [address] Care Team Providers Name Role Phone Kristyn Whitehead MD Primary Care Provider Reason for Visit Reason Comments Rash Encounter Details Date Type Department Care Team Description 08/09/2016 Clinical Support Dermatology at [facility] Lakeshia Flores MD [facility] [address] [place] [address] [facility] [phone] RD-DERMATOLOGY [place] [id number] (Wo rk) Social History Tobacco Use Types Packs/Day Years Used Date Never Assessed Sex Assigned at Date Recorded Not on file documented as of this encounter Progress Notes Anmol Flores MD - 08/09/2016 9:00 AM EDT Section of Dermatology [place] August 09, 2016 Patient: JENNI Provider: BS/DB History: 71 year old female with a 2 year history of an itchy rash on her dorsal hands, elbows, knees, and dorsal feet. Currently treating with protopic twice daily on the weekdays, clobetasol twice daily on the weekends, and vaseline under occlusion on her hands as needed. She denies any muscle weakness, decreased strength, color discoloration of her fingers, facial rash, or rash on the hips, chest,ears, or back. No arthralgias or photosensitivity. No personal or family history of psoriasis, lupus, or other autoimmune conditions. Past Biopsies: [id number] PMH: Hypothyroidism, hyperlipidemia, CAD, ???eczema,?? depression/anxiety Pertinent Labs: EV neg Imaging: None Meds: Levothyroxine, paroxetine, atorvastatin, clopidogrel, metoprolol, isordil, aspirin, nitroglycerin, Lisinopril, clobetasol, protopic All: Legumes, lettuce, soy, sulfa, tomato, Effexor Reason for Presentation: Diagnosis and management Differential Diagnosis: ?? Dermatomyositis ?? Normal nail folds ?? No myositis, no photoexacerbation ?? Psoriasis ?? Irritant or allergic contact dermatitis ?? Keratoderma blenorrhagicum ?? Bazex syndrome ?? Consider CTCL ?? Psoriasiform drug eruption Treatment and Workup: ?? Repeat biopsy ?? Further treatment pending biopsy results A copy of today's impressions and recommendations will be forwarded to the patient's primary visual merchandising specialist, Lakeshia Liu and Dr. Moon. Anmol Flores MD Dermatology Resident - PGY3 Js Caldwell III, MD - 08/09/2016 9:00 AM EDT I was the supervising physician working with dermatology resident Dr. Anmol Flores in the dermatology clinic during this patient visit. The level of Resident supervision for this patient visit was indirect supervision with direct supervision immediately available. (definition: [facility] Policy Statement on Graduate Medical Education, Supervision of Graduate Medical Trainees) I was immediately available to Dr. Flores for questions and discussion regarding this visit. I have reviewed her encounter note details and level of service. JS CALDWELL III, MD Staff Physician documented in this encounter Plan of Treatment Upcoming Encounters Date Type Specialty Care Team Description 10/31/2021 Office Visit Rheumatology Bert Loera MD [facility] DR RHEUMATOLOGY [place], [place] [address] (Wo rk) documented as of this encounter Visit Diagnoses Diagnosis Rash Rash and other nonspecific skin eruption documented in this encounter Care Teams Court Security Officer Relationship Specialty Start Date End Date Kristyn Whitehead MD PCP - General 01/16/10 [address] [place] [address] documented as of this encounter
--- OUTSIDE RECORDS SUMMARY | 2021-08-22 09:43 | XMS_ITS | Encounter Summary ---
:1945 Author Organization [place] [address] Care Team Providers Name Role Phone Kristyn Whitehead MD Primary Care Provider Encounter Details Date Type Department Care Team Description 09/05/2017 Hospital XRay at [facility] Loera, Christopher Psoriasiform dermatitis; Encounter 1 [facility] MD [place], [place] [address] RHEUM[address]Y DEPT. [phone] [place], [place] [address] (Wo rk) Social History Tobacco Use Types Packs/Day Years Used Date Former Smoker Smokeless Tobacco: Never Used Sex Assigned at Date Recorded Not on file documented as of this encounter Medications at Time of Discharge Medication Sig Dispensed Refills Start Date End Date EPINEPHrine 0.3 mg/0.3 Inject into the 0 09/24/19 13 mL Auto-Injector muscle. vit A,C,J-zmbv-[id number] Take by mouth. 0 09/23/2012 (Ocuvite PreserVision) [...] Team Description 10/31/2021 Office Visit Rheumatology Bert Lorea MD [facility] RHEUMATOLOGY [place], [place] [address] (Wo rk) documented as of this encounter Procedures Procedure Name Priority Date/Time Associated Diagnosis Comme nts XR HANDS MIN 3 Routine 09/05/2017 3:54 PM Psoriasiform Results for this VIEWS BILAT EDT dermatitis procedure are in Arthralgia, the results unspecified joint section. documented in this encounter Results XR Hands Min 3 views Bilat (09/05/2017 [...] joint documented in this encounter Care Teams Door Cutter Relationship Specialty Start Date End Date Kristyn Whitehead MD PCP - General 01/16/10 [address] [place] [address] documented as of this encounter
--- OUTSIDE RECORDS SUMMARY | 2021-08-22 09:44 | XMS_ITS | Encounter Summary ---
:1945 Author Organization [facility] [place] [address] Care Team Providers Name Role Phone Kristyn Whitehead MD Primary Care Provider Encounter Details Date Type Department Care Team Description 11/06/2015 Telephone [place] [facility] Ramirez, [place] [phone] Social History Tobacco Use Types Packs/Day Years Used Date Never Assessed Sex Assigned at Date Recorded Not on file documented as of this encounter Miscellaneous Notes Telephone Encounter - Erin Ramirez RN - 11/06/2015 1:26 PM EDT Cardiac Rehabilitation Phone Follow Up July C [facility] staff missed seeing this patient during her recent in patient stay as she was in the cardiac cath lab manager late on Fri11/03/15 and discharged over the weekend . she was called today to discuss referral to out patient Cardiac Rehab program @ [facility]. Assessment: no answer Plan: Left message for her to call us back documented in this encounter Plan of Treatment Upcoming Encounters Date Type Specialty Care Team Description 10/31/2021 Office Visit Rheumatology Bert Loera MD [facility] [place], [place] [address] (Wo rk) documented as of this encounter Visit Diagnoses Not on filedocumented in this encounter Care Teams Adapted Physical Education Aide Relationship Specialty Start Date End Date Kristyn Whitehead MD PCP - General 01/16/10 [address] [place] [address] documented as of this encounter
--- OUTSIDE RECORDS SUMMARY | 2021-08-22 09:44 | XMS_ITS | Encounter Summary ---
:1945 Author Organization [facility] [place] [address] Care Team Providers Name Role Phone Kristyn Whitehead MD Primary Care Provider Reason for Visit Auth/Cert Specialty Diagnoses / Procedures Referred By Contact Refer red To Contact Diagnoses CAD (coronary artery disease) ASCVD Procedures CARDIAC CATHETERIZATION Referral ID Status Reason Start Date Expiration Date Visits Requ ested Visits Authorized [id number] 1 1 Encounter Details Date Type Department Care Team Description 11/03/2015 Surgery Clinic Coordinator Dannie Rodriguez CARDIAC CATHETERIZATION [facility] DR Benitez [place] [address] [place] [address] [phone] (Wo rk) Social History Tobacco Use Types Packs/Day Years Used Date Never Assessed Sex Assigned at Date Recorded Not on file documented as of this encounter Last Filed Vital Signs Vital Sign Reading Time Taken Comments Blood Pressure 115/78 11/03/2015 7:10 AM EDT Pulse 52 11/03/2015 7:10 AM EDT Temperature 36.4 ??C (97.5 ??F) 11/03/2015 7:10 AM EDT Respiratory Rate 16 11/03/2015 7:10 AM EDT Oxygen Saturation 95% 11/03/2015 7:10 AM EDT Inhaled Oxygen Concentration - - Weight 81.6 kg (180 lb) 11/03/2015 7:10 AM EDT Height 165.1 cm (5' 5) 11/03/2015 7:10 AM EDT Body Mass Index 29.95 11/03/2015 7:10 AM EDT documented in this encounter Discharge Summaries Maykel Meyer PA - 11/04/2015 9:30 AM EDT Images from the original note were not included. Discharge Summary Patient Name: Emani Delong Patient Age: 70 y.o. Language: Mongolian Race: White Ethnicity: Not nor Admit date: 11/03/2015 Discharge date and time: 11/04/2015 Attending Physician: Dannie Meneses II, MD Discharge Physician: Dannie Meneses II, MD Discharge Diagnoses (Hospital Problems) and Secondary Diagnoses (Chronic Problems): Active Hospital Problems Diagnosis ??? CAD (coronary artery disease) Resolved Hospital Problems Diagnosis Date Resolved No resolved problems to display. Active Non-Hospital Problems Diagnosis ??? CIS - Hyperlipidemia ??? CIS - Anxiety ??? CIS - Chest pain ??? CIS - Depression ??? CIS - Hypothyroid Operations/Major Procedures: Operations: Procedure(s): CARDIAC CATHETERIZATION 11/03/2015 * Two vessel coronary artery disease (LAD [...] * Drug eluting stent (DIANA) implanted. ? History of Presentation: ?? 70 F with CAD (s/p PCI to RCA in 2009), presents for [facility] in setting of typical angina but reassuringNST that persists through OMT. ?? Pain comes about on mostly exertion (going down stairs) but sometimes as well as at rest. There has been no progression of the CP over the past few weeks. Addition of ISDO has helped the CP ?? Denies upcoming surgeries. Denies bleeding issues. Vital Signs at Discharge: BP: 127/81, Heart Rate: 62, Temp: 36.6 ??C (97.9 ??F), Resp: 20, BMI (Calculated): 30 Height: 165.1 cm (5' 5) (11/03/15709) Weight - Scale: 81.6 kg (180 lb) (11/03/15709) Functional and Cognitive Status: normal Admission Diagnoses: CAD (coronary artery disease) [I25.10] Discharge Diagnoses: Same Hospital Course: The patient was admitted to the observation service overnight where she was monitored on telemetry and had no significant arrhythmias. She had chest wall tenderness. She was able to ambulated without worsening of the chest discomfort. ECG was normal. Her troponin was elevated. I discussed this with Dr. Ott. Her CK is normal.Her medications were reviewed and potential side effectswere discussed. Indication for Admission: Elective catheterization and PCI Important Studies and Lab Data: Lab Results Component Value Date CK 164 (H) 11/04/2015 TROPONINT 0.11 (H) 11/04/2015 Discharge Exam: Normal. Access site intact . No hematoma. Distal N&V intact Discharge Conditions/Prognosis: good Discharge to: Home Updated Allergies/ADRs: Allergies Allergen Reactions ??? Sulfa (Sulfonamide Antibiotics) CIS - Hives Immunizations Given this Hospitalization: Immunization History Administered Date(s) Administered ??? Influenza Vaccine (Novel) [id number], Injectable 12/25/2008 ??? Influenza Vaccine, Whole 12/25/2008 ??? Pneumococcal Polyvalent 23 12/25/2008 Discharge Medications: Your Medications Notice Some of the medications listed here do not show instructions, such as how often to take the medication. Ask your doctor or nurse how to use these medications. Specifically ask about these and similar medications: - levothyroxine (SYNTHROID) 25 mcg tablet - aspirin 325 mg EC tablet - PARoxetine (PAXIL) 20 mg tablet - Calcium Carbonate-Vitamin D3 (CALCIUM 600 WITH VITAMIN D3) 600 mg(1,500mg) - 200 unit Tab Continued medications with new dosing Dose Details * clopidogrel 75 mg Tab Commonly known as: PLAVIX 75 MG = 1 Tablet(s), PO, Once daily What changed: Another medication with the same name was added. Make sure you understand how and whento take each. Refills: 0 * clopidogrel 75 mg Tab Commonly known as: PLAVIX Take 1 tablet by mouth daily. What changed: You were already taking a medication with the same name, and this prescription was added. Make sure you understand how and when to take each. 75 mg Quantity: 90 tablet Refills: 3 * Notice: This list has 2 medication(s) that are the same as other medications prescribed for you. Read the directions carefully, and ask your doctor or other care provider to review them with you. Continued medications, unchanged Dose Details aspirin 325 mg Tbec ?nk?wn!?? Refills: 0 CALCIUM 600 WITH VITAMIN D3 600 mg(1,500mg) -200 unit Tab ?nk?wn!?? Generic drug: calcium-vitamin D3 Refills: 0 isosorbide dinitrate 30 mg Tab Commonly known as: ISORDIL Take 30 mg by mouth 4 times daily. 30 mg Refills: 0 lisinopril 5 mg Tab Commonly known as: PRINIVIL;ZESTRIL 5 MG = 1 Tablet(s), PO, Once daily Refills: 0 meTOPROLOL tartrate 25 mg Tab Commonly known as: LOPRESSOR Take 25 mg by mouth 2 times daily. 25 mg Refills: 0 NITROSTAT 0.4 mg Subl 0.4 MG = 1 Tablet(s), Sublingual, PRN chest pain Generic drug: nitroGLYcerin Refills: 0 PAXIL 20 mg Tab ?nk?wn!?? Generic drug: PARoxetine Refills: 0 simvastatin 40 mg Tab Commonly known as: ZOCOR 40 MG = 1 Tablet(s), PO, QHS Refills: 0 SYNTHROID 25 mcg Tab ?nk?wn!?? Generic drug: levothyroxine Refills: 0 Smoking Status at Discharge: Quit many years ago. Instructions Given to Patient at Discharge: Discharge Instructions following percutaneous coronary intervention (coronary stent placement): Ideally, patients with coronary artery disease should be on the following medications: 1. Aspirin 2. Beta monique 3. Cholesterol lowering therapy 4. Nitroglycerin sl 5. VAMSI inhibitors 6. Plavix- continue for one year unless otherwise advised. Your medications are listed above. If you have any questions regarding your medications, please contact your health care provider. Anti-coagulation follow up: none Smoking cessation: If you are currently a smoker, you are strongly urged to stop smoking! Smoking increases the severity and incidence of heart disease, and is a risk factor for cancer and emphysema. Your healthcare provider can provide specific measures to assist you, including nicotine supplements, anti-anxiety meds, and support groups in your community. Call your doctor if: Chest pain, dyspnea, pain or swelling in legs occurs. Activity level: No heavy lifting (more than ten pounds) for 48 hours; no more than 25 pounds for twoweeks. If you are working, you may return to work in one week, or as directed. Diet: Healthy heart (Low fat, low cholesterol, low sodium). Driving: No restrictions Shower/Bath: May shower; no tub bath for five days after catheterization. Wound Care: Wash with soap and water daily. Contact MD if redness, swelling, increased pain or drainage. Follow up Appointments: F/U with your PCP in 1-2 weeks, and your Specification Writer in 4-6 weeks. Please contact each office to make or confirm your appointments! Home oxygen therapy: N/A documented in this encounter Discharge Instructions AttachmentsThe following attachments cannot be sent through Care Everywhere.PCI (PERCUTANEOUS CORONARY INTERVENTION) : POST-OP (PASHTO)documented in this encounter Medications at Time of Discharge Medication Sig Dispensed Refills Start Date End Date EPINEPHrine 0.3 mg/0.3 mL Inject into the 0 09/23 Auto-Injector muscle. vit A,C,K-qamv-lqgull Take by mouth. 0 09/23/2012 (Ocuvite PreserVision) 7,160 unit- 113 mg-100 unit Tablet nitroGLYcerin (NITROSTAT) 0.4 MG = 1 0 09/06/2009 0.4 mg SL tablet Tablet(s), Sublingual, PRN chest pain lisinopril Take by mouth 2 0 09/06/2009 (PRINIVIL;ZESTRIL) 5 mg times daily. tablet Calcium Carbonate-Vitamin 0 09/04/2009 D3 (CALCIUM 600 WITH VITAMIN D3) 600 mg(1,500mg) -200 unit Tab clopidogrel (PLAVIX) 75 Take 1 tablet by 90 tablet 3 201509/05/2017 mg Tablet mouth daily. meTOPROLOL tartrate Take 25 mg by mouth 0 09/05/2017 (LOPRESSOR) 25 mg Tablet nightly. isosorbide dinitrate Take 30 mg by mouth 0 09/05/2017 (ISORDIL) 30 mg Tablet 4 times daily. Reported on 08/14/2016 levothyroxine (SYNTHROID) 0 09/06/2009 09/05/2017 25 mcg tablet aspirin 325 mg EC tablet 0 09/06/2009 09/05/2017 simvastatin (ZOCOR) 40 mg 40 MG = 1 Tablet(s), 0 09/06/2009 09/05/2017 tablet PO, QHS clopidogrel (PLAVIX) 75 75 MG = 1 Tablet(s), 0 06/28/2016 mg tablet PO, Once daily PARoxetine (PAXIL) 20 mg 0 09/04/2009 09/05/2017 tablet documented as of this encounter Progress Notes Angelito Garcia RN - 11/04/2015 10:00 AM EDT ABSORB IV CONSENT NOTE ABSORB IV RANDOMIZED CONTROLLED TRIAL A Clinical Evaluation of Absorb??? BVS, the Everolimus Eluting Bioresorbable Vascular Scaffold in the Treatment of Subjects with de femi [place] Coronary Artery Lesions PI: Jose Alberto Quinn MD Pager #:[phone] Consent: I met with Emani Delong and reviewed the ABSORB IV trial. Following the determination this potential participant did not have any obvious evidence of clinical exclusion to the ABSORB IV RandomizedControlled Trial, the subject was provided with a written informed consent ([facility] date 08/25/2014) and was given adequate time for review of the consent. The purpose, procedures, risks, potential benefits of the study, as well as alternatives to participation were reviewed and questions were answered. The [place] 0[address] agreeing to participate, providing angiographic inclusion criteria are satisfied. The subject was provided with a copy of the signed informed consent document. No study related activities were performed prior to completion of the consent process. Subject Enrollment, Randomization and Registration: - Subjects are considered enrolled in ABSORB IV after signing the Informed Consent. - Subjects are considered randomized in ABSORB IV after the interactive voice response system (IVRS)has been called and a device (Absorb BVS or XIENCE) has been assigned. - Subjects are considered registered in the ABSORB IV upon randomization. Coronary angiography in the cardiac catheterization lab revealed non obstructive coronary artery disease. This qualifies as an angiographic screen fail and Ms. Delong was not enrolled in the ABSORBIV trial. Remedios Peres RN - 11/04/2015 7:59 AM EDT Activity Summary: By discharge, patient will be able to perform self care, walk 5-7 minutes and go up and down stairs without signs or symptoms of ischemia. Date /Initials Baseline Response Symptoms/Comments 11/04/2015 Activity HR 67 66 Max HR 93 5 minute walk with 1 flight of stairs BP 128/74 132/77 O2 Sat 97 96 Mild dyspnea ECG nsr nsr No chest pain Lamar Burch RN - 11/03/2015 3:26 PM EDT Patient arrived to the floor via stretcher. Patient was moved from the stretcher to the bed using a slipp and 3 staff members. Right groin site is CD&I with no evidence of hematoma. Pt states mild chest pain at a 2/10 but states it has been improving since the procedure. Telemetry showing sinus bradycardia. VSS. Family at bedside. Will continue to monitor. documented in this encounter H&P Notes Dannie Meneses II, MD - 11/03/2015 8:22 AM EDT Patient Name: Emani Delong Patient Age: 70 y.o. Birthdate: 1945 Admit date: 11/03/2015 Attending Physician: Dannie Meneses II, MD 70 F with CAD (s/p PCI to RCA in 2009), presents for [facility] in setting of typical angina but reassuringNST that persists through OMT. Pain comes about on mostly exertion (going down stairs) but sometimes as well as at rest. There has been no progression of the CP over the past few weeks. Addition of ISDO has helped the CP Denies upcoming surgeries. Denies bleeding issues. O/ BP 115/78 Pulse 52 Temp 36.4 ??C (97.5 ??F) (Oral) Resp 16 Ht 165.1 cm (5' 5) Wt 81.6 kg (180 lb) SpO2 95% BMI 29.95 kg/m2 Gen: pleasant F in NAD Cor: bradycardic rate, regular rhythm. S1/s2 of nl character and amplitude, no m/r/g. jvp not elevated Pulm: ctab Ext: no c/c/e. Dp/pt ++. Adequate ulnar collateralization bilaterally via Sumanth's Test Neuro: without focal deficit Last 3 wbc, hgb, hct plt Hb 15 Plt 249 Last 3 Lytes Recent Labs 11/03/15 0735 NA 141 K 4.7 CL 104 CO2 22 BUN 24* CREATININE 0.94 Plan/ 70 F with hx of CAD in the RCA presents with stable angina after reassuring NST but with continued angina. Radial access reasonable. No contraindications to long-term DAPT. Proceed to [facility] Cardiology Staff Addendum The patient was interviewed, examined and discussed in detail with Dr. English. Have reviewed ' note dated 11/05/2015 and agree with evaluation and plans. Conclusions from cath: * Two vessel coronary artery disease (LAD and RCA) * IFR accross ostial RCA not significant. * FFR accross mid 1 LAD not significant. * FFR accross mid 2 LAD significant. * Successful stent insertion of the mid 2 LAD lesion * Drug eluting stent (DIANA) implanted. * Normal left ventricular function (EF-70%) * Trace mitral regurgitation Complications/Events: The patient had no complications during these procedures. This patient is admitted post PCI for IV hydration, pain management, access site management in the setting of anticoagulation, serial cardiac biomarker monitoring, telemetry monitoring, evaluation of their medical condition, and cardiac rehabilitation. Dannie Meneses MD documented in this encounter Miscellaneous Notes Plan of Care - Remedios Peres RN - 11/04/2015 10:27 AM EDT Problem: General Plan of Care Goal: Plan of Care Review Outcome: Outcome (s) achieved Date Met: 11/04/15 11/04/15 1020 Plan of Care Review Plan of Care Outcome Status outcome achieved Progress improving Coping/Psychosocial Response Interventions Plan of Care Reviewed with patient OUTCOME EVALUATION NOTE: OUTCOME SUMMARY: Pt is alert and oriented x 4, ambulatory, tolerates heart healthy diet, voiding in BR. Pt does have left chest pain, seen by MD, EKG obtained and showed no changes. Pt tolerated cardiac walk, right femoral site clean and intact, + pedal pulse. AVS provided and reviewed, all questions a nswered. PLAN MOVING FORWARD: Discharge to home INDIVIDUALIZED FALL PREVENTION INTERVENTIONS: Patient-specific fall risk factors per assessment: [current deficits]: none Assistance [level of assistance required for transfers and ambulation]: independent Supervision [direct monitoring required during toileting and ADLs]: none Surveillance [continuous indirect monitoring]: none Patient-specific fall prevention interventions for sensory deficits provided, if applicable: no CPG GOAL OUTCOME EVALUATION: Goal: Individualization and Mutuality Outcome: Outcome (s) achieved Date Met: 11/04/15 11/04/15 1020 Individualization Patient Specific Goals discharge to home Patient Specific Interventions telemetry, cardiac walk, discharge teaching Goal: Fall Prevention-Safe Patient Handling Outcome: Outcome (s) achieved Date Met: 11/04/15 11/04/15 0206 11/04/15 0357 11/04/15 0900 Safety Interventions Safety Precautions/Fall Reduction -- -- fall reduction program maintained Musculoskeletal Interventions Activity/Level of Assistance -- -- up ad caitlyn Positioning independent -- -- Self-Care Promotion -- independence encouraged while providing assistance -- Clemente Fall Risk History of Falling -- -- 0 Secondary Diagnosis -- -- 15 Ambulatory Aids -- -- 0 Intravenous Therapy/Heparin/Saline Lock -- -- 0 Gait/Transferring -- -- 0 Mental Status -- -- 0 Score -- -- 15 Activity and Safety Assistive Device None -- -- OTHER Clemente Fall Risk -- -- Low Goal: Infection Control Outcome: Outcome (s) achieved Date Met: 11/04/15 11/03/15 19311/04/15356 Safety Interventions Isolation Precautions -- standard precautions maintained Infection Prevention bronchial hygiene promoted;environmental surveillance;hydration promoted;nutrition promoted;promote handwashing;rest/sleep promoted -- Coping/Psychosocial Response Interventions Counseling emotional support provided -- Goal: Discharge Needs Assessment Outcome: Outcome (s) achieved Date Met: 11/04/15 11/04/15356 Discharge Needs Assessment Concerns to be Addressed no discharge needs identified Readmission Within the Last 30 Days no previous admission in last 30 days Equipment Needed After Discharge none Current Health Anticipated Changes Related to Illness none Self-Care Equipment Currently Used at Home none Living Environment Transportation Available car;family or friend will provide Plan of Care - Paulette Marvin RN - 11/04/2015 4:07 AM EDT Problem: General Plan of Care Goal: Plan of Care Review Outcome: Ongoing (Interventions Implemented as Appropriate) 11/04/15356 Plan of Care Review Plan of Care Outcome Status ongoing (interventions implemented as appropriate) Progress improving Coping/Psychosocial Response Interventions Plan of Care Reviewed with patient OUTCOME EVALUATION NOTE: OUTCOME SUMMARY: Patient received in bed, A&O, VSS, c/o chest pain. Reports total relief with PO tylenol, no further complaints of pain overnight. Hypertensive intermittently, VS otherwise stable. R groin site dry & intact with gauze/transparent film dressing. Scant drainage remains unchanged overnight. Ambulated in halls with 1 assist for safety, tolerates this activity well. Comfort and safety measures maintained, CBIR. PLAN MOVING FORWARD: CTM I/O, labs, VS, pain, advance activity as tolerated. D/C home when able. INDIVIDUALIZED FALL PREVENTION INTERVENTIONS: Patient-specific fall risk factors per assessment: [current deficits]: IV access, secondary access Assistance [level of assistance required for transfers and ambulation]: Standby Supervision [direct monitoring required during toileting and ADLs]: A&O, uses call liang appropriately Surveillance [continuous indirect monitoring]: Hourly rounding Patient-specific fall prevention interventions for sensory deficits provided, if applicable: NA CPG GOAL OUTCOME EVALUATION: Goal: Individualization and Mutuality Outcome: Ongoing (Interventions Implemented as Appropriate) 11/04/15356 Mutuality/Individual Preferences What anxieties, fears or concerns do you have about your health or care? none What questions do you have about your health or care? none What information would help us give you more personalized care? nothing Goal: Fall Prevention-Safe Patient Handling Outcome: Ongoing (Interventions Implemented as Appropriate) 11/03/15193211/04/156 11/04/15356 Safety Interventions Safety Precautions/Fall Reduction supervised activity;nonskid shoes/slippers when out of bed;low bed;lighting adjusted for task/safety;fall reduction program maintained;environmental modification -- -- Musculoskeletal Interventions Activity/Level of Assistance -- with stand by assist -- Positioning -- independent -- Self-Care Promotion -- -- independence encouraged while providing assistance Goal: Infection Control Outcome: Ongoing (Interventions Implemented as Appropriate) 11/03/15193211/04/15356 Safety Interventions Isolation Precautions -- standard precautions maintained Infection Prevention bronchial hygiene promoted;environmental surveillance;hydration promoted;nutrition promoted;promote handwashing;rest/sleep promoted -- Coping/Psychosocial Response Interventions Counseling emotional support provided -- Goal: Discharge Needs Assessment Outcome: Ongoing (Interventions Implemented as Appropriate) 11/04/15356 Discharge Needs Assessment Concerns to be Addressed no discharge needs identified Readmission Within the Last 30 Days no previous admission in last 30 days Equipment Needed After Discharge none Current Health Anticipated Changes Related to Illness none Self-Care Equipment Currently Used at Home none Living Environment Transportation Available car;family or friend will provide documented in this encounter Plan of Treatment Upcoming Encounters Date Type Specialty Care Team Description 10/31/2021 Office Visit Rheumatology Bert Loera MD [facility] RHEUMATOLOGY [place], [place] [address] (Wo rk) documented as of this encounter Procedures Procedure Name Priority Date/Time Associated Diagnosis Comme nts COMPUTER INFORMATION SYSTEMS INSTRUCTOR 11/06/2015 12:00 SCAN AM EDT EKG 12-LEAD STAT 11/04/2015 8:13 AM ASCVD (arterioscleroti c Results for this EDT cardiovascular disease) proc edure are in the results section. CARDIAC ENZYMES Routine 11/04/2015 4:54 AM Result s for this ([facility]) EDT procedure are i n the results section. EKG 12-LEAD Routine 11/03/2015 2:39 PM ASCVD (arterioscleroti c Results for this EDT cardiovascular disease) proc edure are in the results section. BMP W/FASTING Routine 11/03/2015 7:35 AM Results for this GLUCOSE EDT procedure are i n the results section. EKG 12-LEAD Routine 11/03/2015 7:22 AM ASCVD (arterioscleroti c Results for this EDT cardiovascular disease) proc edure are in the results section. documented in this encounter Results SCAN DOC: COMPUTER INFORMATION SYSTEMS INSTRUCTOR (11/06/2015 12:00 AM EDT) Narrative This result has an attachment that is no t available. Scanning Provider MEDIA MGR SCAN EXT ORDR/RSLT EKG 12 Lead (11/04/2015 8:13 AM EDT) Component Value Ref Range Test Analysis Performed Pathologis t Method Time At Signature Ventricular rate 55 BPM MUSE SYSTEM Atrial Rate 55 BPM MUSE SYSTEM P-R Interval 190 ms MUSE SYSTEM QRS Duration 90 ms MUSE SYSTEM Q-T Interval 450 ms MUSE SYSTEM QTC Calculated 430 ms MUSE SYSTEM (Bezet) Calculated P [place] 57 degrees MUSE SYSTEM Calculated R [place] 35 degrees MUSE SYSTEM Calculated T [place] 47 degrees MUSE SYSTEM INTERPRETATION Sinus bradycardia MUSE SY STEM Otherwise normal ECG When compared with ECG of 03-NOV-2015 14:39, No significant change was found Confirmed by MD Hilton Douglas ([id number]) on 11/04/2015 3:38:39 PM Specimen Anatomical Collection Method Collection Time Receive d Time (Source) Location / / Volume Laterality 11/04/2015 8:13 AM 6 3:38 EDT PM EDT Dannie Meneses II, MD ECG ORDERABLES Performing Organization Address City/State/ZIP Code Phon e Number MUSE SYSTEM (ABNORMAL) Cardiac Enzymes (11/04/2015 4:54 AM EDT) P athologist Signature Troponin-T 0.11 (H) <=0.03 PIOTR OSCAR ng/mL [facility] Comment: 0.03 ng/mL: Represents the 99th percenti le upper reference limit for normals. >0.03 ng/mL: Elevated cardiac troponin T level indicative of myocardial damage. Diagnosis of acute, evolving or recent M I requires a typical rise and gradual fall of cTnT with at least ONE of the fo llowing: a) Ischemic symptoms b) Development of pathologic Q waves on the ECG c) ECG changes indicative of eschemia (S -T segment elevation/depression) d) Coronary artery intervention Serial bloods should be obtained for wayne ting on admission, at 6 to 9 hrs and again at 12 to 24 hrs if earlier samples are negative and the clinical index of suspicion is high. Reference: [Myocardial infarction redefined? a consensus document of the Joint Society of Cardiology/[place] [employer] f [employer] Committee for the redefinition of myocardial infarction. ? ?Journal of the [place] [employer] 2000; 36: 959-969] CK, Total 164 (H) 0 - 160 unit/L [facility] Specimen Anatomical Collection Method Collection Time Receive d Time (Source) Location / / Volume Laterality Blood specimen 11/04/2015 4:54 AM 016 5:08 (specimen) EDT AM EDT Resulting Agency Comment Spec In Lab Dannie Meneses II, MD CHEMISTRY ORDERABLES Performing Organization Address City/State/ZIP Code Phon e Number [place] [phone] EKG 12 Lead (11/03/2015 2:39 PM EDT) Component Value Ref Range Test Analysis Performed Pathologis t Method Time At Signature Ventricular rate 51 BPM MUSE SYSTEM Atrial Rate 51 BPM MUSE SYSTEM P-R Interval 198 ms MUSE SYSTEM QRS Duration 88 ms MUSE SYSTEM Q-T Interval 474 ms MUSE SYSTEM QTC Calculated 436 ms MUSE SYSTEM (Bezet) Calculated P [place] 67 degrees MUSE SYSTEM Calculated R [place] 50 degrees MUSE SYSTEM Calculated T [place] 44 degrees MUSE SYSTEM INTERPRETATION Sinus bradycardia MUSE SY STEM Otherwise normal ECG When compared with ECG of 03-NOV-2015 07:22, No significant change was found Confirmed by MD Noe, Eliecer ([id number]) on 11/03/2015 3:18:23 P M Specimen Anatomical Collection Method Collection Time Receive d Time (Source) Location / / Volume Laterality 11/03/2015 2:39 PM 6 3:18 EDT PM EDT Dannie Meneses II, MD ECG ORDERABLES Performing Organization Address City/State/ZIP Code Phon e Number MUSE SYSTEM (ABNORMAL) BMP w/fasting Glucose (11/03/2015 7:35 AM EDT) athologist Signature Glucose 101 (H) 65 - 99 [facility] Fasting mg/dL [facility] Comment: ?Fasting* Glucose Interpretive [...] of Diabetes Mellitus, Position Statement from the [place] [employer]. ??Diabete s Care, Volume 33, Supplement 1, Feb 2009 BUN 24 (H) 8 - 18 mg/dL [facility] Creatinine 0.94 0.70 - 1.20 mg/dL [facility] Comment: Please note that the pediatric reference intervals supplied above were not validated at [facility]. Results from pediatri c patients should be interpreted in conjunction to the patient's age, height and muscle mass. Sodium 141 135 - 145 mmol/L [facility] Potassium 4.7 3.5 - 5.0 mmol/L [facility] Comment: Please note: ??Patients with WBC >100,00 0 may have falsely elevated Potassium levels. ??For accurate Potassium quantif ication in these patients send serum separator tube (gold top) for subsequent determinations. ??Contact the Clinical Chemistry Laboratory if there are any qu estions. Chloride 104 98 - 107 mmol/L [facility] CO2 22 22 - 31 mmol/L [facility] Anion Gap 15 5 - 15 mmol/L [facility] Calcium 9.1 8.5 - 10.5 mg/dL [facility] Estimated GFR 59 (L) >=60 [facility] Comment: This estimated GFR (eGFR) [...] the following links into your internet browser. [email or web address] Specimen Anatomical Collection Method Collection Time Receive d Time (Source) Location / / Volume Laterality Blood specimen 11/03/2015 7:35 AM 016 7:46 (specimen) EDT AM EDT Resulting Agency Comment Spec In Lab Dannie Meneses II, MD CHEMISTRY ORDERABLES Performing Organization Address City/State/[place] [address] EKG 12 Lead (11/03/2015 7:22 AM EDT) Component Value Ref Range Test Analysis Performed Pathologis t Method Time At Signature Ventricular rate 49 BPM MUSE SYSTEM Atrial Rate 49 BPM MUSE SYSTEM P-R Interval 188 ms MUSE SYSTEM QRS Duration 86 ms MUSE SYSTEM Q-T Interval 458 ms MUSE SYSTEM QTC Calculated 413 ms MUSE SYSTEM (Bezet) Calculated P [place] 55 degrees MUSE SYSTEM Calculated R [place] 22 degrees MUSE SYSTEM Calculated T [place] 41 degrees MUSE SYSTEM INTERPRETATION Marked sinus bradycardia MUSE SYSTEM Abnormal ECG When compared with ECG of 06-SEP-2009 10:34, No significant change was found Confirmed by MD Noe, Eliecer ([id number]) on 11/03/2015 11:19:51 AM Specimen Anatomical Collection Method Collection Time Receive d Time (Source) Location / / Volume Laterality 11/03/2015 7:22 AM 6 EDT 11:19 AM EDT Yobani Ott MD ECG ORDERABLES Performing Organization Address City/State/ZIP Code Phon e Number MUSE SYSTEM documented in this encounter Visit Diagnoses Diagnosis ASCVD (arteriosclerotic cardiovascular d isease) Unspecified cardiovascular disease ASCVD (arteriosclerotic cardiovascular d isease) Unspecified cardiovascular disease documented in this encounter Admitting Diagnoses Diagnosis CAD (coronary artery disease) Coronary atherosclerosis of unspecified type of vessel, circle or graft documented in this encounter Administered Medications Inactive Administered Medications - up to 3 most recent administrations Medication Order MAR Action Action Date Dose Rate Site acetaminophen (TYLENOL) tablet 650 Given 11/04/2015 8:59 AM EDT 650 mg mg 650 mg, Oral, EVERY 4 HOURS PRN, Starting on Fri11/03/15 at 1552, Until 11/04/15 at 1227, Pain, Maximum dose of acetaminophen is 4000 mg from all sources in 24 hours., Routine Given 11/04/2015 4:45 AM EDT 650 mg Given 11/03/2015 7:33 PM EDT 650 mg adenosine 90 mg in sodium New Bag 11/03/2015 12:53 PM 140 mcg/ kg/min 685.4 mL/hr chloride 0.9% 90 mL infusion EDT (CERTIFIED MEDICAL AIDE) CONTINUOUS PRN, Starting on Fri11/03/15 at 1253, Until Fri11/03/15 at 1408, Cath (Intra-Procedure), Routine clopidogrel (PLAVIX) tablet 75 mg Given 11/04/2015 9:00 AM EDT 75 mg 75 mg, Oral, DAILY, First dose on 11/04/15 at 0900, Until Discontinued, Routine clopidogrel (PLAVIX) tablet Given 11/03/2015 1:09 PM EDT 600 mg ONCE PRN, Starting on Fri11/03/15 at 1309, Until Fri11/03/15 at 1408, Intra-Operative (Intra-Procedure), Routine fentaNYL 50 mcg/mL multi-dose injection Given 11/03/2015 1:39 PM EDT 25 mcg ONCE PRN, Starting on Fri11/03/15 at 1106, Until Fri11/03/15 at 1408, Intra-Operative (Intra-Procedure), Routine Given 11/03/2015 1:10 PM EDT 25 mcg Given 11/03/2015 1:03 PM EDT 25 mcg heparin (porcine) injection Given 11/03/2015 12:39 PM EDT 2,000 Units ONCE PRN, Starting on Fri11/03/15 at 1119, Until Fri11/03/15 at 1408, Cath (Intra-Procedure), Routine Given 11/03/2015 12:06 PM EDT 5,000 Units Given 11/03/2015 11:19 AM EDT 2,000 Units iohexol (OMNIPAQUE) 350 mg/mL solution Given 11/03/2015 2:07 PM EDT 330 mLs ONCE PRN, Starting on Fri11/03/15 at 1407, Until Fri11/03/15 at 1408, Cath (Intra-Procedure), Routine isosorbide dinitrate (ISORDIL) tablet 30 mg Given 11/04/2015 6:49 AM EDT 30 mg 30 mg, Oral, 3 TIMES DAILY, First dose on Fri11/03/15 at 1700, Until Discontinued, Routine Given 11/03/2015 5:00 PM EDT 30 mg levothyroxine (SYNTHROID) tablet 25 mcg Given 11/04/2015 6:49 AM EDT 25 mcg 25 mcg, Oral, EVERY MORNING, First dose on 11/04/15 at 0600, Until Discontinued, Routine lisinopril (PRINIVIL;ZESTRIL) tablet 5 m g Given 11/04/2015 9:00 AM EDT 5 mg 5 mg, Oral, DAILY, First dose on 11/04/15 at 0900, Until Discontinued, Routine meTOPROLOL (LOPRESSOR) tablet 12.5 mg Given 11/04/2015 9:00 AM EDT 12.5 mg 12.5 mg, Oral, 2 TIMES DAILY, First dose on Fri11/03/15 at 2100, Until Discontinued, Routine Given 11/03/2015 9:47 PM EDT 12.5 mg midazolam (PF) (VERSED) 1 mg/mL multi-dose Given 11/03/2015 12:3 5 PM EDT 1 mg injection ONCE PRN, Starting on Fri11/03/15 at 1106, Until Fri11/03/15 at 1408, Cath (Intra-Procedure), Routine Given 11/03/2015 11:06 AM EDT 1 mg niCARdipine 0.2 mg/mL Rate/Dose Change 11/03/2015 2:14 2.5 mg/hr 12. 5 mL/hr (Standard Adult and Bee PM EDT greater than 20 kg) infusion CONTINUOUS PRN, Starting on Fri11/03/15 at 1352, Until Fri11/03/15 at 1408, Intra-Operative (Intra-Procedure), Routine New Bag 11/03/2015 1:52 PM EDT 5 mg/hr 25 mL/hr nitroGLYcerin (NITROSTAT) SL tablet Given 11/03/2015 1:10 PM EDT 0.4 mg ONCE PRN, Starting on Fri11/03/15 at 1141, Until Fri11/03/15 at 1408, Cath (Intra-Procedure), Routine Given 11/03/2015 11:41 AM EDT 0.4 mg nitroGLYcerin 100 mcg/mL intracoronary Given 11/03/2015 12:51 PM EDT 100 mcg dilution ONCE PRN, Starting on Fri11/03/15 at 1251, Until Fri11/03/15 at 1408, Cath (Intra-Procedure), Routine nitroGLYcerin 50 mg in Rate/Dose Change 11/03/2015 1:53 PM 20 mcg/min 6 mL/hr dextrose 5% 250 mL infusion EDT CONTINUOUS PRN, Starting on Fri11/03/15 at 1311, Until Fri11/03/15 at 1408, Cath (Intra-Procedure), Routine Rate/Dose Change 11/03/2015 1:37 PM EDT 40 mcg/min 12 mL/hr Restarted 11/03/2015 1:26 PM EDT 20 mcg/min 6 mL/hr PARoxetine (PAXIL) tablet 20 mg Given 11/04/2015 9:01 AM EDT 20 mg 20 mg, Oral, DAILY, First dose on 11/04/15 at 0900, Until Discontinued, Routine simvastatin (ZOCOR) tablet 40 mg Given 11/03/2015 9:49 PM EDT 40 mg 40 mg, Oral, NIGHTLY, First dose on Fri11/03/15 at 2100, Until Discontinued, Routine sodium chloride 0.9% infusion New Bag 11/03/2015 2:45 PM EDT 100 mL/hr 100 mL/hr 100 mL/hr, Intravenous, CONTINUOUS, Starting on Fri11/03/15 at 1445, Until Fri11/03/15 at 1844, Recovery (Recovery-Hospital Unit) documented in this encounter Active and Recently Administered Medications Times are shown in EDT. Scheduled Medication Order 11/02/2015 11/03/2015 11/04/2015 aspirin EC tablet 325 mg 0900 (D ue) 325 mg, Oral, DAILY, First dose on Sat at 0900, Until Discontinued, Routine clopidogrel (PLAVIX) tablet 75 mg 09 (Given - Provider: Remedios Peres RN) 75 mg, Oral, DAILY, First dose on Sat 12/09 at 0900, Until Discontinued, Routine isosorbide dinitrate (ISORDIL) tablet 30 mg 1700 (Given - Provider: Lamar Burch RN) 0649 (Given - Provider: Paulette Marvin RN) 30 mg, Oral, 3 TIMES DAILY, First dose o n Fri11/03/15 at 1700, Until Discontinued, Routine levothyroxine (SYNTHROID) tablet 25 mcg 648 (Given - Provider: Paluette Marvin RN) 25 mcg, Oral, EVERY MORNING, First dose on Fri11/04/15 at 0600, Until Discontinued, Routine lisinopril (PRINIVIL;ZESTRIL) tablet 5 mg 899 (Given - Provider: Remedios Peres RN) 5 mg, Oral, DAILY, First dose on 10/25 at 0900, Until Discontinued, Routine meTOPROLOL (LOPRESSOR) tablet 12.5 mg (Given - Provider: Paulette Marvin RN) 899 (Given - Provider: Remedios bellamy RN) 12.5 mg, Oral, 2 TIMES DAILY, First dose on Fri11/03/15 at 2100, Until Discontinued, Routine PARoxetine (PAXIL) tablet 20 mg 900 (Given - Provider: Remedios Peres RN) 20 mg, Oral, DAILY, First dose on 12/09 at 0900, Until Discontinued, Routine simvastatin (ZOCOR) tablet 40 mg 2148 (Given - P rovider: Paulette Marvin RN) 40 mg, Oral, NIGHTLY, First dose on Fri11/03/15 at 2100, Until Discontinued, Routine Continuous Medication Order 11/02/2015 11/03/2015 11/04/2015 sodium chloride 0.9% infusion () 1445 (New Bag - Provider: Kristyn Webster RN)1930 (Stopped - Provider: Lamar Burch RN) 100 mL/hr, at 100 mL/hr, Intravenous, CO NTINUOUS, Starting Fri11/03/15 at 1445, Until Fri11/03/15 at 1844, Recovery (Recovery-Hospital Unit) PRN Medication Order 11/02/2015 11/03/2015 11/04/2015 acetaminophen (TYLENOL) tablet 650 mg 19 33 (Given - Provider: Paulette Marvin, RN) 0445 (Given - Provider: Paulette Marvin , RN)0859 (Given - Provider: Remedios Peres RN) 650 mg, Oral, EVERY 4 HOURS PRN, Startin g 11/03/15 at 1552, Until 11/04/15 at 1227, Pain, Maximum dose of acetaminophen is 4000 mg from all sources in 24 hours., Routine adenosine 90 mg in sodium chloride 0.9% 90 mL infusion (CERTIFIED MEDICAL AIDE) (CANCELED) 1253 (New Bag - Provider: Mayco Strickland RN)1255 (Stopped - Provider: Janessa Patino RN) CONTINUOUS PRN, Starting Fri11/03/15 at 1 253, Until Fri11/03/15 at 1408, Cath (Intra-Procedure), Routine clopidogrel (PLAVIX) tablet (CANCELED) 1 309 (Given - Provider: Hussein Ellis) ONCE PRN, Starting Fri11/03/15 at 1309, U ntil Fri11/03/15 at 1408, Intra-Operative (Intra-Procedure), Routine fentaNYL 50 mcg/mL multi-dose injection (CANCELED) 1106 (Given - Provider: Mayco Strickland RN)1235 (Given - Provider: Mayco Strickland RN)1303 (Given - Provider: Hussein Ellis)1310 (Given - Provider: Selvin Vásquez)1339 (Given - Provider: Mayco Strickland, BRANDEN) ONCE PRN, Starting Fri11/03/15 at 1106, U ntil 11/03/15 at 1408, Intra-Operative (Intra-Procedure), Routine heparin (porcine) injection (CANCELED) 1 119 (Given - Provider: Mayco Strickland RN)1206 (Given - Provider: Mayco Strickland, BRANDEN)1239 (Given - Provider: Mayco Strickland RN) ONCE PRN, Starting Fri11/03/15 at 1119, U ntil Fri11/03/15 at 1408, Cath (Intra- Procedure), Routine iohexol (OMNIPAQUE) 350 mg/mL solution (CANCELED) 1407 (Given - Provider: Dannie Meneses II, MD) ONCE PRN, Starting Fri11/03/15 at 1407, U ntil Fri11/03/15 at 1408, Cath (Intra- Procedure), Routine midazolam (PF) (VERSED) 1 mg/mL multi-dose injection (CANCEL ED) 1106 (Given - Provider: Mayco Strickland, BRANDEN)1235 (Given - Provider: Mayco Strickland, BRANDEN) ONCE PRN, Starting Fri11/03/15 at 1106, U ntil Fri11/03/15 at 1408, Cath (Intra- Procedure), Routine niCARdipine 0.2 mg/mL (Standard Adult an d Bee greater than 20 kg) infusion (CANCELED) 1352 (New Bag - Provider: Abdiel Strickland RN)1414 (Rate/Dose Change - Provider: Kristyn Webster RN)1417 (Stopped - Provider: Kristyn Webster RN) CONTINUOUS PRN, Starting Fri11/03/15 at 1 352, Until Fri11/03/15 at 1408, Intra- Operative (Intra-Procedure), Routine nitroGLYcerin (NITROSTAT) SL tablet (CANCELED) 1141 (Given - Provider: Mayco Strickland RN)1310 (Given - Provider: Selvin Vásquez) ONCE PRN, Starting Fri11/03/15 at 1141, U ntil Fri11/03/15 at 1408, Cath (Intra- Procedure), Routine nitroGLYcerin 100 mcg/mL intracoronary dilution (CANCELED) 1251 (Given - Provider: Dannie Meneses II, MD) ONCE PRN, Starting Fri11/03/15 at 1251, U ntil Fri11/03/15 at 1408, Cath (Intra- Procedure), Routine nitroGLYcerin 50 mg in dextrose 5% 250 mL infusion (CANCELED ) 1300 (Stopped - Provider: Janessa Patino RN)1311 (New Bag - Provider: Hussein Ellis)1316 (Rate/Dose Change - Provider: Selvin Vásquez)1319 (Stopped - Provider: Selvin Vásquez)1326 (Restarted - Provider: Selvin Vásquez) CONTINUOUS PRN, Starting Fri11/03/15 at 1 311, Until Fri11/03/15 at 1408, Cath (Intra-Procedure), Routine 1337 (Rate/Dose Change - Pr ovider: Mayco Strickland, BRANDEN)1353 (Rate/Dose Change - Provider: Janessa Patino, BRANDEN)1407 (Stopped - Provider: Kristyn Webster RN) documented in this encounter Care Teams Food Handler Relationship Specialty Start Date End Date Kristyn Whitehead MD PCP - General 01/16/10 [address] [place] [address] documented as of this encounter
--- OUTSIDE RECORDS SUMMARY | 2021-08-22 09:44 | XMS_ITS | Encounter Summary ---
:1945 Author Organization [facility] [place] [address] Care Team Providers Name Role Phone Kristyn Whitehead MD Primary Care Provider Encounter Details Date Type Department Care Team Description 11/02/2015 Orders Only Cardiology at [facility] Maykel Meyer ASCVD (arteriosclerotic [facility] MS cardiovascular disease) [facility] [id number] CARDIOLOGY DEPT. [phone] [place], [place] [address] Social History Tobacco Use Types Packs/Day Years Used Date Never Assessed Sex Assigned at Date Recorded Not on file documented as of this encounter Plan of Treatment Upcoming Encounters Date Type Specialty Care Team Description 10/31/2021 Office Visit Rheumatology Bert Loera MD [facility] RHEUMATOLOGY DEP T. [place], [place] [address] (Wo rk) documented as of this encounter Procedures Procedure Name Priority Date/Time Associated Diagnosis Comme nts CARDIAC CATHETERIZATION Routine 11/03/2015 2:08 ASCVD R esults for this PM EDT (arteriosclerotic procedure are in cardiovascular the results disease) section. documented in this encounter Results CARDIAC CATHETERIZATION (11/03/2015 2:08 PM EDT) Specimen (Source) Anatomical Location Collection Method / Collectio n Time Received Time / Laterality Volume Narrative CARDIOMAC SYSTEM - 11/03/2015 2:33 PM ED T ?[facility] ? Cardiac Cathete rization/Intervention Report ? Patient Name: Sindi, Emani Clark. ? Procedure Date: 11/03/2015 ? A #: [id number] ? Primary Physician: Dannie Meneses ? Case #: [id number] ? File Name: [id number] ? Catheterization Order Number: [id number] ? [facility] ? Final Report [place], [place] ? Patient Name: ? Emani watt ? ID#: ?[id number] ? : ?1945 ? Procedure Date: ? Vera 9, 20 16 ?Case #: ? [id number] ? Room: ? 1 ? Case Physician: ? Dannie delarosa, M.D. ?Start: ?11:01 ?Fellow: ? Terrance Araujo, M.D. ?Admission: ??11/03/2015 ? Discharge: ??11/04/2015 ? Referring Physician: ??Kristyn Whitehead M.D. ? Procedures: ?* Coronary Angiography ?* Left Heart Catheterization ?* Left Ventriculography ?* Coronary Flow Baldwin Measure ment (FFR) ?* Coronary Instantaneous Wave-F ree Ratio (iFR) ?* Coronary Stent Insertion ?* Vascular Closure Device Deplo yment ? History ?Emani CJose L Delong is a 70 year old woman. She has hypertension. The ?patient has unstable angina, a history of chest pain and a prior history ?of coronary artery disease. She had a remote coronary intervention ?procedure. Prior to the initiat ion of this procedure, the patient was ?designated as ASA Class III. ? Patient Status at Catheterization: ?The patient presented with: uns table angina (w/i 60 days). Prydeinig ?Cardiovascular Society angina c lass was IV. This patient was on beta ?blockers prior to the procedure . A SPECT stress test was performed and ?results were Negative. ? Technique: ?A 6Fr sheath was inserted in th e right femoral artery utilizing the ?Seldinger technique. The left c oronary artery was injected utilizing a ?6Fr JL 4 catheter. A 5Fr JR 4 c atheter was used to inject the right ?coronary artery. Left ventricul ar pressure was performed with a 6Fr ?Angled pigtail catheter. Woods ry stent insertion was performed and the ?equipment utilized will be desc ribed in the intervention summary section. ?9,000 units of heparin were adm inistered. Intracoronary nitroglycerin was ?given during this case. A total of 350cc of Omnipaque were opened, 330cc ?of Omnipaque were administered and 20cc of Omnipaque were wasted. ?Radiation: Fluoro time was 41.3 minutes, dose area product was 199,572 ?mGYcm2 and air kerma was 2,645 mGY. ?The patient received the follow ing medications prior to and during the ?procedure: Aspirin (any), Clopi dogrel and Unfractionated Heparin (any). ? Hemodynamics: ?Left Heart Pressures ? Resting: ? Syst D iast ? EDP ?a ?v ? m ?Ao 163 ?? 78 ?113 ?LV 142 ? 14 ? Left Ventriculography: ?View ACOSTA ?Overall LV ?Normal ?Function: ?Estimated LV Ejection Fraction: 70% ?Mitral ?Trace ?Regurgitation: ? Coronary Angiography: ?Dominance: Right ?Left Main ? There was mild diffuse d isease of the entire vessel segment of the ? left main artery. ? This was a very short ve ssel segment. ?Left Anterior Descending ? There was mild diffuse d isease of the entire vessel segment of the ? left anterior descending artery (LAD). ??The mid 1 segment of the LAD ? had a single discrete 40 % stenosis. ??There also was a 50% single ? discrete stenosis of the mid 2 segment of the LAD. ?Left Circumflex ? There was mild diffuse d isease of the entire vessel segment of the ? left circumflex artery ( LCX). ??The mid segment of the LCX had a ? single discrete 40% sten osis. ?Right Coronary Artery ? There was mild diffuse d isease of the entire vessel segment of the ? right coronary artery (R CA). ??The ostial segment of the RCA had a ? single discrete 50% sten osis. ??There also was mild diffuse disease ? of the proximal segment of the RCA. ??The previously placed stent is ? patent. ? Intravascular Imaging/Physiology: ?Instantaneous wave-free ratio ( iFR) was determined across the 50% ?stenosis in the ostial RCA usin g a 5 Fr JR 4.0 guiding catheter and a ?Verrata wire. ??Wire delivery w as successful. ??The IFR across the 50% ?ostial RCA lesion was 0.97. ??T his lesion was not hemodynamically ?significant. ??Lesions are gene rally considered to be hemodynamically ?significant if the iFR is less than or equal to 0.85, and are considered ?to be indeterminate in the rang e from 0.86 to 0.93. ?Instantaneous wave-free ratio ( iFR) was determined across the 50% ?stenosis in the mid 2 LAD using a 6 Fr EBU 3.5 guiding catheter and a ?Verrata wire. ??Wire delivery w as successful. ??The IFR across the 50% mid ?2 LAD lesion was 0.92. ??This l esion was of indeterminate significance. ?Lesions are generally considere d to be hemodynamically significant if the ?iFR is less than or equal to 0. 85, and are considered to be indeterminate ?in the range from 0.86 to 0.93. ?Fractional flow reserve was per formed to assess the 50% stenosis in the ?mid 2 LAD using a 6 Fr EBU 3.5 guiding catheter and a Verrata wire. ?Adenosine 140 mcg/kg/min intrav enous infusion was administered. ??Wire ?delivery was successful. ??The FFR across the 50% mid 2 LAD lesion was ?0.76. ??This lesion was hemodyn amically significant. ??Lesions are ?considered to be hemodynamicall y significant if the FFR is less than ?0.80. ?Fractional flow reserve was per formed to assess the 40% stenosis in the ?mid 1 LAD using a 6 Fr EBU 3.5 guiding catheter and a Verrata wire. ?Adenosine 140 mcg/kg/min intrav enous infusion was administered. ??Wire ?delivery was successful. ??The FFR across the 40% mid 1 LAD lesion was ?0.86. ??This lesion was not hem odynamically significant. ??Lesions are ?considered to be hemodynamicall y significant if the FFR is less than ?0.80. ? Indication for Intervention: ?Coronary intervention was indic ated for treatment of unstable angina. ?Left ventricular Ejection Fract ion was estimated at 70 percent. The ?priority for the procedure was Elective. The NCDR indication for the ?procedure was PCI for high risk Non-STEMI or unstable angina. ? Intervention Summary: ?Left Anterior Descending Artery ? Mid 2 50% ? Stent insertion was performed on the 50% stenosis in the mid 2 ? segment of the LAD. This was a de femi lesion. According to ? the ACC/AHA cla ssification system, this lesion was a type A ? low risk lesion . Management of recurrent restenosis was the ? indication for stent insertion. This was the culprit lesion. ? Vessel flow pre intervention was FAITH 3. ? Stent insertion was accomplished through a 6 Fr. EBU 3.5 ? guide. ??A ashlee ounted 2.50 x 12 mm Promus Premier (DIANA) was ? deployed with a maximum inflation pressure of 8 atmospheres. ? Following stent deployment, the lesion was dilated using a ? 2.50mm NC EMERG E 08 MM balloon with a maximum inflation ? pressure of 14 atmospheres. ? The final outco me was defined as successful. A coronary ? arteriolar vaso dilator was administered as part of the ? intervention on this lesion. There was no residual stenosis ? following this intervention. The final FAITH flow was 3. ? Vascular Access: ?Vascular Access Angiogram: ? A selective angiogram at the right femoral artery revealed no ? significant obstructive disease. ?Vascular Access Management: ? A 6 Fr Perclose was depl oyed at the right femoral artery access ? site. This device was yoon ccessful. ? Conclusions: ?* Two vessel coronary artery di sease (LAD and RCA) ?* Normal left ventricular funct ion (EF-70%) ?* Trace mitral regurgitation ?* Successful stent insertion of the mid 2 LAD lesion ?* IFR accross ostial RCA not si gnificant. ?* FFR accross mid 1 LAD not sig nificant. ?* FFR accross mid 2 LAD signifi cant. ?* Drug eluting stent (DIANA) impl anted. ? Complications/Events: ?The patient had no complication s during these procedures. ? Recommendations: ?The patient's medical regimen w as changed as follows: Drug eluting stent ?(DIANA) implanted. Clopidogrel 60 0 mg PO administered in the chemistry laboratory technician. ?Continue ASA 81 mg po daily, cl opidogrel 75 mg po daily x 12 mo. ?The attending physician was franklin cook for the entire procedure. ?Dr. Dannie Meneses M.D. perfor med the coronary angiography, left heart ?catheterization, left ventriculogr aphy, vascular closure device, FFR # ?coronary, IFR-coronary and stent i nsertion-coronary. ? Dannie W [place], M.D. ? Electronically Signed by: Dannie W Ni les, M.D. ? Report Finalized: 11/03/2015 ??14:22 ? Report Last Ammended: 01/26/2016 ??15:39 ? Procedure Note Dannie Meneses II, MD - 01/26/2016Fo rmatting of this note might be different from the original. [facility] Cardiac Catheterization/Intervention Re port Patient Name: Emani Delong Procedure Date: 11/03/2015 A #: [id number] Primary Physician: Dannie Meneses Case #: [id number] File Name: [id number] Catheterization Order Number: [id number] [facility] Final Report [place], [place] Patient Name: Emani Delong ID#: [id number] : 1945 Procedure Date: November 03, 2015 Case # : [id number] Room: 1 Case Physician: Dannie Meneses M.D. Start: 11:01 Fellow: Terrance English M.D. Admission : 11/03/2015 Discharge: 11/04/2015 Referring Physician: Vu Telles Procedures: * Coronary Angiography * Left Heart Catheterization * Left Ventriculography * Coronary Flow Baldwin Measurement (FF R) * Coronary Instantaneous Wave-Free Rati o (iFR) * Coronary Stent Insertion * Vascular Closure Device Deployment History Emani Delong is a 70 year old wom an. She has hypertension. The patient has unstable angina, a history of chest pain and a prior history of coronary artery disease. She had a r emote coronary intervention procedure. Prior to the initiation of t his procedure, the patient was designated as ASA Class III. Patient Status at Catheterization: The patient presented with: unstable an kayden (w/i 60 days). Prydeinig Cardiovascular Society angina class was IV. This patient was on beta blockers prior to the procedure. A SPEC T stress test was performed and results were Negative. Technique: A 6Fr sheath was inserted in the right femoral artery utilizing the Seldinger technique. The left coronary artery was injected utilizing a 6Fr JL 4 catheter. A 5Fr JR 4 catheter was used to inject the right coronary artery. Left ventricular press ure was performed with a 6Fr Angled pigtail catheter. Coronary stent insertion was performed and the equipment utilized will be described in the intervention summary section. 9,000 units of heparin were administere d. Intracoronary nitroglycerin was given during this case. A total of 350c c of Omnipaque were opened, 330cc of Omnipaque were administered and 20cc of Omnipaque were wasted. Radiation: Fluoro time was 41.3 minutes , dose area product was 199,572 mGYcm2 and air kerma was 2,645 mGY. The patient received the following medi cations prior to and during the procedure: Aspirin (any), Clopidogrel a nd Unfractionated Heparin (any). Hemodynamics: Left Heart Pressures Resting: Syst Diast EDP a v m Ao 163 78 113 LV 142 14 Left Ventriculography: View ACOSTA Overall LV Normal Function: Estimated LV Ejection Fraction: 70% Mitral Trace Regurgitation: Coronary Angiography: Dominance: Right Left Main There was mild diffuse disease of the e ntire vessel segment of the left main artery. This was a very short vessel segment. Left Anterior Descending There was mild diffuse disease of the e ntire vessel segment of the left anterior descending artery (LAD). The mid 1 segment of the LAD had a single discrete 40% stenosis. The re also was a 50% single discrete stenosis of the mid 2 segment of the LAD. Left Circumflex There was mild diffuse disease of the e ntire vessel segment of the left circumflex artery (LCX). The mid s egment of the LCX had a single discrete 40% stenosis. Right Coronary Artery There was mild diffuse disease of the e ntire vessel segment of the right coronary artery (RCA). The ostial segment of the RCA had a single discrete 50% stenosis. There als o was mild diffuse disease of the proximal segment of the RCA. The previously placed stent is patent. Intravascular Imaging/Physiology: Instantaneous wave-free ratio (iFR) was determined across the 50% stenosis in the ostial RCA using a 5 Fr JR 4.0 guiding catheter and a Verrata wire. Wire delivery was success ful. The IFR across the 50% ostial RCA lesion was 0.97. This lesion was not hemodynamically significant. Lesions are generally cons idered to be hemodynamically significant if the iFR is less than or equal to 0.85, and are considered to be indeterminate in the range from 0 .86 to 0.93. Instantaneous wave-free ratio (iFR) was determined across the 50% stenosis in the mid 2 LAD using a 6 Fr EBU 3.5 guiding catheter and a Verrata wire. Wire delivery was success ful. The IFR across the 50% mid 2 LAD lesion was 0.92. This lesion was of indeterminate significance. Lesions are generally considered to be hemodynamically significant if the iFR is less than or equal to 0.85, and are considered to be indeterminate in the range from 0.86 to 0.93. Fractional flow reserve was performed t o assess the 50% stenosis in the mid 2 LAD using a 6 Fr EBU 3.5 guiding catheter and a Verrata wire. Adenosine 140 mcg/kg/min intravenous in fusion was administered. Wire delivery was successful. The FFR across the 50% mid 2 LAD lesion was 0.76. This lesion was hemodynamically s ignificant. Lesions are considered to be hemodynamically signif icant if the FFR is less than 0.80. Fractional flow reserve was performed t o assess the 40% stenosis in the mid 1 LAD using a 6 Fr EBU 3.5 guiding catheter and a Verrata wire. Adenosine 140 mcg/kg/min intravenous in fusion was administered. Wire delivery was successful. The FFR across the 40% mid 1 LAD lesion was 0.86. This lesion was not hemodynamical ly significant. Lesions are considered to be hemodynamically signif icant if the FFR is less than 0.80. Indication for Intervention: Coronary intervention was indicated for treatment of unstable angina. Left ventricular Ejection Fraction was estimated at 70 percent. The priority for the procedure was Elective . The NCDR indication for the procedure was PCI for high risk Non-RITA TN or unstable angina. Intervention Summary: Left Anterior Descending Artery Mid 2 50% Stent insertion was performed on the 50 % stenosis in the mid 2 segment of the LAD. This was a de femi lesion. According to the ACC/AHA classification system, this lesion was a type A low risk lesion. Management of recurren t restenosis was the indication for stent insertion. This wa s the culprit lesion. Vessel flow pre intervention was FAITH 3 . Stent insertion was accomplished throug h a 6 Fr. EBU 3.5 guide. A premounted 2.50 x 12 mm Promus Premier (DIANA) was deployed with a maximum inflation press ure of 8 atmospheres. Following stent deployment, the lesion was dilated using a 2.50mm NC EMERGE 08 MM balloon with a m aximum inflation pressure of 14 atmospheres. The final outcome was defined as succes sful. A coronary arteriolar vasodilator was administered as part of the intervention on this lesion. There was no residual stenosis following this intervention. The final FAITH flow was 3. Vascular Access: Vascular Access Angiogram: A selective angiogram at the right femo ral artery revealed no significant obstructive disease. Vascular Access Management: A 6 Fr Perclose was deployed at the [facility] femoral artery access site. This device was successful. Conclusions: * Two vessel coronary artery disease (L AD and RCA) * Normal left ventricular function (EF- 70%) * Trace mitral regurgitation * Successful stent insertion of the mid 2 LAD lesion * IFR accross ostial RCA not significan t. * FFR accross mid 1 LAD not significant . * FFR accross mid 2 LAD significant. * Drug eluting stent (DIANA) implanted. Complications/Events: The patient had no complications during these procedures. Recommendations: The patient's medical regimen was desai ed as follows: Drug eluting stent (DIANA) implanted. Clopidogrel 600 mg PO administered in the chemistry laboratory technician. Continue ASA 81 mg po daily, clopidogre l 75 mg po daily x 12 mo. The attending physician was present for the entire procedure. Dr. Dannie Meneses M.D. performed t he coronary angiography, left heart catheterization, left ventriculography, vascular closure device, FFR # coronary, IFR-coronary and stent insert ion-coronary. Dannie Meneses M.D. Electronically Signed by: Dannie zamora M.D. Report Finalized: 11/03/2015 14:22 Report Last Ammended: 01/26/2016 15:39 Yobani Ott MD CARDIAC CATH ORDERABLES Performing Organization Address City/State/ZIP Code Phon e Number CARDIOMAC SYSTEM documented in this encounter Visit Diagnoses Diagnosis ASCVD (arteriosclerotic cardiovascular d isease) Unspecified cardiovascular disease ASCVD (arteriosclerotic cardiovascular d isease) Unspecified cardiovascular disease documented in this encounter Care Teams Director Data Processing Relationship Specialty Start Date End Date Kristyn Whitehead MD PCP - General 01/16/10 [address] [place] [address] documented as of this encounter
--- OUTSIDE RECORDS SUMMARY | 2021-08-22 09:44 | XMS_ITS | Encounter Summary ---
:1945 [place] [address] Care Team Providers Name Role Phone Kristyn Whitehead MD Primary Care Provider Reason for Visit Auth/Cert Specialty Diagnoses / Procedures Referred By Contact Refer red To Contact Diagnoses CAD (coronary artery disease) ASCVD Procedures CARDIAC CATHETERIZATION Referral ID Status Reason Start Date Expiration Date Visits Requ ested Visits Authorized [id number] 1 1 Encounter Details Date Type Department Care Team Description 11/03/2015 - Hospital Short Stay Unit at [facility] ASCVD 11/04/2015 Encounter Felicia Wagner II, MD (arteriosclerotic [facility] cardiovascular [facility] DR disease) [facility] CARDIOLOGY DEPT. [place], [place] [id number] [phone] Social History Tobacco Use Types Packs/Day Years Used Date Never Assessed Sex Assigned at Date Recorded Not on file documented as of this encounter Last Filed Vital Signs Vital Sign Reading Time Taken Comments Blood Pressure 127/81 11/04/2015 7:30 AM EDT Pulse 62 11/04/2015 7:30 AM EDT Temperature 36.6 ??C (97.9 ??F) 11/04/2015 7:30 AM EDT Respiratory Rate 20 11/04/2015 7:30 AM EDT Oxygen Saturation 96% 11/04/2015 7:30 AM EDT Inhaled Oxygen Concentration - - [...] Emani Delong Patient Age: 70 y.o. Language: Maldivian Race: White Ethnicity: Not nor Admit date: [...] PCI to RCA in 2009), presents for [facility] in setting of typical angina but reassuringNST [...] Administered Date(s) Administered ??? Influenza Vaccine (Novel) [id number], Injectable 12/25/2008 ??? Influenza Vaccine, Whole 12/25/2008 [...] your PCP in 1-2 weeks, and your Farm Management Agent in 4-6 weeks. Please contact each office to make or confirm your appointments! Home oxygen therapy: N/A documented in this encounter Discharge Instructions AttachmentsThe following attachments cannot be sent through Care Everywhere.PCI (PERCUTANEOUS CORONARY INTERVENTION) : POST-OP ([place] CITIZ[place])documented in this encounter Medications at Time of Discharge Medication Sig Dispensed Refills Start Date End Date EPINEPHrine 0.3 mg/0.3 mL Inject into the 0 09/23 Auto-Injector muscle. vit A,C,O-hgzd-tbxvwy Take by mouth. 0 09/23/2012 (Ocuvite PreserVision) [...] the Treatment of Subjects with de femi Pauma Coronary Artery Lesions PI: Jose Alberto Quinn MD Pager #:[phone] Consent: I met with Emani Delong and reviewed the ABSORB IV trial. Following the determination this potential participant did not have any obvious evidence of clinical exclusion to the ABSORB IV RandomizedControlled Trial, the subject was provided with a written informed consent ([facility] date 08/25/2014) and was given adequate [...] PCI to RCA in 2009), presents for [facility] in setting of typical angina but reassuringNST [...] No contraindications to long-term DAPT. Proceed to [facility] Cardiology Staff Addendum The patient was interviewed, [...] Handling Outcome: Ongoing (Interventions Implemented as Appropriate) 11/03/15193211/04/15 0206 11/04/15356 Safety Interventions Safety Precautions/Fall Reduction supervised [...] 10/31/2021 Office Visit Rheumatology Bert Loera MD [facility] ER RHEUMATOLOGY [facility] [place] [id number] (Wo rk) documented as of this encounter Procedures Procedure Name Priority Date/Time Associated Diagnosis Comme nts SAFETY DEPOSIT BOXES CUSTODIAN 11/06/2015 12:00 SCAN AM EDT EKG 12-LEAD [...] documented in this encounter Results SCAN DOC: SAFETY DEPOSIT BOXES CUSTODIAN (11/06/2015 12:00 AM EDT) Narrative This result [...] 430 ms MUSE SYSTEM (Bezet) Calculated P [place] 57 degrees MUSE SYSTEM Calculated R [place] 35 degrees MUSE SYSTEM Calculated T [place] 47 degrees MUSE SYSTEM INTERPRETATION Sinus bradycardia MUSE SY STEM Otherwise normal ECG When compared with ECG of 03-NOV-2015 14:39, No significant change was found Confirmed by MD Yobani, Serge ([id number]) on 11/04/2015 3:38:39 PM Specimen Anatomical Collection Method Collection Time Receive d Time (Source) Location / / Volume Laterality 11/04/2015 8:13 AM 6 3:38 EDT PM EDT Dannie Meneses II, MD ECG ORDERABLES Performing Organization Address City/State/ZIP Code Phon e Number MUSE SYSTEM (ABNORMAL) Cardiac Enzymes (11/04/2015 4:54 AM EDT) P athologist Signature Troponin-T 0.11 (H) <=0.03 FELICIA OSCAR ng/mL [facility] Comment: 0.03 ng/mL: Represents the 99th [...] consensus document of the Joint Society of Cardiology/[place] College o f Cardiology Committee for the redefinition of myocardial infarction. ? ?Journal of the [place] College of [employer]iology 2000; 36: 959-969] CK, Total 164 (H) 0 - 160 unit/L [facility] Specimen Anatomical Collection Method Collection Time Receive d Time (Source) Location / / Volume Laterality Blood specimen 11/04/2015 4:54 AM 016 5:08 (specimen) EDT AM EDT Resulting Agency Comment Spec In Lab Dannie Meneses II, MD CHEMISTRY ORDERABLES Performing Organization Address City/State/[place] [address] EKG 12 Lead (11/03/2015 2:39 PM EDT) Component Value Ref Range Test Analysis Performed Pathologis t Method Time At Signature Ventricular rate 51 BPM MUSE SYSTEM Atrial Rate 51 BPM MUSE SYSTEM P-R Interval 198 ms MUSE SYSTEM QRS Duration 88 ms MUSE SYSTEM Q-T Interval 474 ms MUSE SYSTEM QTC Calculated 436 ms MUSE SYSTEM (Bezet) Calculated P [place] 67 degrees MUSE SYSTEM Calculated R [place] 50 degrees MUSE SYSTEM Calculated T [place] 44 degrees MUSE SYSTEM INTERPRETATION Sinus bradycardia MUSE SY STEM Otherwise normal ECG When compared with ECG of 03-NOV-2015 07:22, No significant change was found Confirmed by MD Noe, Eliecer ([id number]) on 11/03/2015 3:18:23 P M Specimen Anatomical Collection Method Collection Time Receive d Time (Source) Location / / Volume Laterality 11/03/2015 2:39 PM 6 3:18 EDT PM EDT Dannie Meneses II, MD ECG ORDERABLES Performing Organization Address City/State/ZIP Code Phon e Number MUSE SYSTEM (ABNORMAL) BMP w/fasting Glucose (11/03/2015 7:35 AM EDT) athologist Signature Glucose 101 (H) 65 - 99 [facility] Fasting mg/dL [facility] Comment: ?Fasting* Glucose Interpretive C [...] of Diabetes Mellitus, Position Statement from the [place] Diabetes Association. ??Diabete s Care, Volume 33, Supplement 1, Feb 2009 BUN 24 (H) 8 - 18 mg/dL [facility] Creatinine 0.94 0.70 - 1.20 mg/dL [facility] Comment: Please note that the pediatric reference intervals supplied above were not validated at [facility]. Results from pediatri c patients should be interpreted in conjunction to the patient's age, height and muscle mass. Sodium 141 135 - 145 mmol/L [facility] Potassium 4.7 3.5 - 5.0 mmol/L [facility] Comment: Please note: ??Patients with WBC >100,00 0 may have falsely elevated Potassium levels. ??For accurate Potassium quantif ication in these patients send serum separator tube (gold top) for subsequent determinations. ??Contact the Clinical Chemistry Laboratory if there are any qu estions. Chloride 104 98 - 107 mmol/L [facility] CO2 22 22 - 31 mmol/L [facility] Anion Gap 15 5 - 15 mmol/L [facility] Calcium 9.1 8.5 - 10.5 mg/dL [facility] Eugenio [facility] Estimated GFR 59 (L) >=60 [facility] Comment: This estimated GFR (eGFR) [...] the following links into your internet browser. [email or web address] Specimen Anatomical Collection Method Collection Time Receive d Time (Source) Location / / Volume Laterality Blood specimen 11/03/2015 7:35 AM 016 7:46 (specimen) EDT AM EDT Resulting Agency Comment Spec In Lab Dannie Meneses II, MD CHEMISTRY ORDERABLES Performing Organization Address City/State/[place] [address] EKG 12 Lead (11/03/2015 7:22 AM EDT) Component Value Ref Range Test Analysis Performed Pathologis t Method Time At Signature Ventricular rate 49 BPM MUSE SYSTEM Atrial Rate 49 BPM MUSE SYSTEM P-R Interval 188 ms MUSE SYSTEM QRS Duration 86 ms MUSE SYSTEM Q-T Interval 458 ms MUSE SYSTEM QTC Calculated 413 ms MUSE SYSTEM (Bezet) Calculated P [place] 55 degrees MUSE SYSTEM Calculated R [place] 22 degrees MUSE SYSTEM Calculated T [place] 41 degrees MUSE SYSTEM INTERPRETATION Marked sinus [...] Ott MD ECG ORDERABLES Performing Organization Address City/[facility]/ZIP Code Phon e Number MUSE SYSTEM documented in this encounter Visit Diagnoses Diagnosis ASCVD (arteriosclerotic cardiovascular d isease) Unspecified cardiovascular disease CAD (coronary artery disease) Coronary atherosclerosis of unspecified type of vessel, [place] or graft documented in this encounter Admitting Diagnoses Diagnosis CAD (coronary artery disease) Coronary atherosclerosis of unspecified type of vessel, [place] or graft documented in this encounter Administered Medications Inactive Administered Medications - up to 3 most recent administrations Medication Order MAR Action Action Date Dose Rate Site acetaminophen (TYLENOL) tablet 650 Given 11/04/2015 8:59 AM EDT 650 mg mg 650 mg, Oral, EVERY 4 HOURS PRN, Starting on Fri11/03/15 at 1552, Until Fri11/04/15 at 1227, Pain, Maximum dose of acetaminophen is 4000 mg from all sources in 24 hours., Routine Given 11/04/2015 4:45 AM EDT 650 mg Given 11/03/2015 7:33 PM EDT 650 mg clopidogrel (PLAVIX) tablet 75 mg Given 11/04/2015 9:00 AM EDT 75 mg 75 mg, Oral, DAILY, First dose on Fri11/04/15 at 0900, Until Discontinued, Routine isosorbide dinitrate [...] 5 mg, Oral, DAILY, First dose on Fri11/04/15 at 0900, Until Discontinued, Routine meTOPROLOL (LOPRESSOR) tablet 12.5 mg Given 11/04/2015 9:00 AM EDT 12.5 mg 12.5 mg, Oral, 2 TIMES DAILY, First dose on Fri11/03/15 at 2100, Until Discontinued, Routine Given 11/03/2015 9:47 PM EDT 12.5 mg niCARdipine 0.2 mg/mL Rate/Dose Change 11/03/2015 2:14 2.5 mg/hr 12. 5 mL/hr (Standard Adult and Bee PM EDT greater than 20 kg) infusion CONTINUOUS PRN, Starting on Fri11/03/15 at 1352, Until Fri11/03/15 at 1408, Intra-Operative (Intra-Procedure), Routine New Bag 11/03/2015 1:52 PM EDT 5 mg/hr 25 mL/hr nitroGLYcerin 50 mg in Rate/Dose Change 11/03/2015 [...] Discontinued, Routine clopidogrel (PLAVIX) tablet 75 mg 0900 (Given - Provider: Remedios Peres, BRANDEN) 75 mg, Oral, DAILY, First dose on Sat 12/09 at 0900, Until Discontinued, Routine isosorbide dinitrate (ISORDIL) tablet 30 mg 1700 (Given - Provider: Lamar Burch RN) 0649 (Given - Provider: Paulette Marvin RN) 30 mg, Oral, 3 TIMES DAILY, First dose o n Fri11/03/15 at 1700, Until Discontinued, Routine levothyroxine (SYNTHROID) tablet 25 mcg 648 (Given - Provider: Paulette Marvin RN) 25 mcg, Oral, EVERY MORNING, First dose on 11/04/15 at 0600, Until Discontinued, Routine lisinopril (PRINIVIL;ZESTRIL) tablet 5 mg 899 (Given - Provider: Remedios Peres RN) 5 mg, Oral, DAILY, First dose on Sat 10/25 at 0900, Until Discontinued, Routine meTOPROLOL (LOPRESSOR) tablet 12.5 mg 47 (Given - Provider: Paulette Marvin RN) 09 (Given - Provider: Remedios bellamy RN) 12.5 mg, Oral, 2 TIMES DAILY, First dose on Fri11/03/15 at 2100, Until Discontinued, Routine PARoxetine (PAXIL) tablet 20 mg 900 (Given - Provider: Remedios Peres RN) 20 mg, Oral, DAILY, First dose on Sat 12/09 at 0900, Until Discontinued, Routine simvastatin [...] mg 19 33 (Given - Provider: Paulette Marvin RN) 0445 (Given - Provider: Paulette Marvin RN)0859 (Given - Provider: Remedios Peres, BRANDEN) 650 mg, Oral, EVERY 4 HOURS PRN, Startin g 11/03/15 at 1552, Until 11/04/15 at 1227, Pain, Maximum dose of acetaminophen is 4000 mg from all sources in 24 hours., Routine adenosine 90 mg in sodium chloride 0.9% 90 mL infusion (FLIGHT TEST SUPERVISOR) (CANCELED) 1253 (New Bag - Provider: Mayco Strickland RN)1255 (Stopped - Provider: Janessa Patino RN) CONTINUOUS PRN, Starting Fri11/03/15 at 1 253, Until 11/03/15 at 1408, Cath (Intra-Procedure), Routine clopidogrel (PLAVIX) tablet (CANCELED) 1 309 (Given - Provider: Hussein Ellis) ONCE PRN, Starting Fri11/03/15 at 1309, U ntil Fri11/03/15 at 1408, Intra-Operative (Intra-Procedure), Routine fentaNYL 50 mcg/mL multi-dose injection (CANCELED) 1106 (Given - Provider: Mayco Strickland RN)1235 (Given - Provider: Mayco Strickland RN)1303 (Given - Provider: Hussein Ellis)1310 (Given - Provider: Selvin Vásquez)1339 (Given - Provider: Mayco Strickland RN) ONCE PRN, Starting Fri11/03/15 at 1106, U ntil 11/03/15 at 1408, Intra-Operative (Intra-Procedure), Routine heparin (porcine) injection (CANCELED) 1 119 (Given - Provider: Mayco Strickland RN)1206 (Given - Provider: Mayco Strickland RN)1239 (Given - Provider: Mayco Strickland RN) ONCE PRN, Starting Fri11/03/15 at 1119, U ntil Fri11/03/15 at 1408, Cath (Intra- Procedure), Routine iohexol (OMNIPAQUE) 350 mg/mL solution (CANCELED) 1407 (Given - Provider: Dannie Meneses II, MD) ONCE PRN, Starting 11/03/15 at 1407, U ntil Fri11/03/15 at 1408, Cath (Intra- Procedure), Routine midazolam (PF) (VERSED) 1 mg/mL multi-dose injection (CANCEL ED) 1106 (Given - Provider: Mayco Strickland RN)1235 (Given - Provider: Mayco Strickland RN) ONCE PRN, Starting Fri11/03/15 at 1106, U ntil Fri11/03/15 at 1408, Cath (Intra- Procedure), Routine niCARdipine 0.2 mg/mL (Standard Adult an d Bee greater than 20 kg) infusion (CANCELED) 1352 (New Bag - Provider: Abdiel Strickland, BRANDEN)1414 (Rate/Dose Change - Provider: Kristyn Webster, BRANDEN)1417 (Stopped - Provider: Kristyn Webster RN) CONTINUOUS PRN, Starting Fri11/03/15 at 1 352, Until Fri11/03/15 at 1408, Intra- Operative (Intra-Procedure), Routine nitroGLYcerin (NITROSTAT) SL tablet (CANCELED) 1141 (Given - Provider: Mayco Strickland, BRANDEN)1310 (Given - Provider: Selvin Vásquez) ONCE PRN, [...] (CANCELED ) 1300 (Stopped - Provider: Janessa Patino, BRANDEN)1311 (New Bag - Provider: Hussein Ellis)1316 (Rate/Dose Change - Provider: Selvin Vásquez)1319 (Stopped - Provider: Selvin Vásquez)1326 (Restarted - Provider: Selvin Vásquez) CONTINUOUS PRN, Starting Fri11/03/15 at 1 311, Until Fri11/03/15 at 1408, Cath (Intra-Procedure), Routine 1337 (Rate/Dose Change - Pr ovider: Mayco Strickland, RN)1353 (Rate/Dose Change - Provider: Janessa Patino, RN)1407 (Stopped - Provider: Kristyn Webster RN) documented in this encounter Care Teams Real Time Analyst Relationship Specialty Start Date End Date Kristyn Whitehead MD PCP - General 01/16/10 [address] [place] [address] documented as of this encounter
--- NOTE | 2021-08-22 10:00 | DI.RAD_ITS ---
Exam(s) XR PORTABLE CHEST AP EXAM: XR PORTABLE CHEST AP CLINICAL HISTORY: exertional dyspnea TECHNIQUE: COMPARISON: CR XR CHEST 2V PA LATERAL from 11/10/2017 FINDINGS: Portable AP chest at 1025 hours. The heart appears moderately enlarged. There is slight prominence of pulmonary interstitial markings in comparison with prior examinations, raising the possibility of early CHF. No gross pleural effus ion seen. IMPRESSION: Cardiomegaly, suspicion of mild pulmonary edema. RADIATION DOSE DELIVERED: Total DLP
--- NOTE | 2021-08-22 10:07 | W.ED.GENAD ---
Discharge Plan Disposition Patient Disposition: [facility] INPATIENT Condition: Stable Discharge Details Clinical Impression: Coronary artery disease, Weakness Primary Care Provider: Kristyn Whitehead V ED Provider: Steve Webster Home Meds and New Rx's Prescriptions: No Action folic acid 1 mg tablet 1 mg PO DAILY lisinopril 5 mg tablet 5 mg PO BID Qty: 90 6RF nitroglycerin 0.4 MG tablet, sublingual 0.4 mg Sublingual PRN epinephrine [EpiPen 2-Chong] 0.3 MG/0.3 ML auto-injector 0.3 mg IM ONCE PreserVision AREDS 1 EACH tablet 1 ea PO DAILY aspirin 81 MG tablet,chewable 81 mg PO DAILY Qty: 30 methotrexate sodium 2.5 mg tablet 20 mg PO QWEEK chlorthalidone 25 mg tablet 25 mg PO DAILY calcium carbonate-vitamin D3 [Calcium 600 + D(3)] 1 EACH tablet 1 ea PO DAILY paroxetine HCl [Paxil] 30 MG tablet 30 mg PO DAILY pantoprazole 40 MG tablet,delayed release (DR/EC) 40 mg PO DAILY cyanocobalamin (vitamin B-12) 1,000 MCG/ML solution 1,000 mcg IJ Q30D Medical Decision Making 76-year-old female with history of coronary artery disease status post stenting to the RCA and the left anterior descending in 2016. She was referred by primary care today after reporting exertional dyspnea at home. Patient states over the past few days she has had some intolerance of exertion while power washing her deck. She felt weakness and diaphoresis while doing light exertion. It seems to resolved with rest. 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 She improved with rest. Patient arrives with blood pressure two 6/84, oxygenating normally. Her exam is reassuring. Differential diagnosis includes acute coronary syndrome, angina, CHF, PE. Patient IV established, was placed on a cardiac catheterization technician and referred for laboratory testing and chest x-ray. X-ray reveals cardiomegaly with suspicion of mild pulmonary edema. There is increased prominence of the interstitial markings compared to previous. Lab note a white count of 3.7, hematocrit 40, platelets 252. Chemistries will note a troponin of 56, BUN 27 and creatinine 1.1. BNP is 30. DDimer is elevated at 721. Given patient's presentation elevated D-dimer she is referred for CT scan of the chest. This does not show any significant findings, see formal report. Repeat troponin obtained and negative. Given the patient's history of known coronary artery disease, her profound weakness and slightly elevated troponin today I do feel admission with further work-up is indicated HPI General Mode of arrival: wheelchair. Date/Time Provider Initiated Documentation: 08/22/21 09:38. Limitations to Documentation: no limitations. Information obtained by: patient and family. History of Present Illness 76 year old F presents to the emergency department with the chief complaint of Weakness and exertional dyspnea, described as moderate, Quality is described as dull, and is localized to the left, right and upper extremity. Patient reports no radiation. Patient started experiencing this hour(s) and it has been intermittent. No relieving factors improve symptom(s), No exacerbating factors reported . Patient notes shortness of breath and weakness; denies syncope. Patient did receive the following treatments prior to arrival, none Related Data Home Medications Medication Instructions Recorded Confirmed epinephrine 0.3 mg/0.3 mL 0.3 mg IM ONCE 09/23/12 08/22/21 injection, auto-injector (EpiPen 2-Chong) nitroglycerin 0.4 mg sublingual 0.4 mg sublingual PRN 09/23/12 08/22/21 tablet vitamins A,C,S-iefv-oypnzy 7,160 1 ea PO DAILY 09/23/12 08/22/21 unit-113 mg-100 unit tablet (PreserVision AREDS) aspirin 81 mg chewable tablet 81 mg PO DAILY ##30 11/17/15 08/22/21 calcium carbonate 600 mg-vitamin 1 ea PO DAILY 09/12/17 08/22/21 D3 5 mcg (200 unit) tablet (Calcium 600 + D(3)) cyanocobalamin (vitamin B-12) 1,000 mcg IJ Q30D 09/12/17 08/22/21 1,000 mcg/mL injection solution pantoprazole 40 mg tablet,delayed 40 mg PO DAILY 09/12/17 08/22/21 release paroxetine HCl 30 mg tablet (Paxil) 30 mg PO DAILY 09/12/17 08/22/21 folic acid 1 mg tablet 1 mg PO DAILY 07/10/18 08/22/21 lisinopril 5 mg tablet 5 mg PO BID #90 tabs 08/26/19 08/22/21 chlorthalidone 25 mg tablet 25 mg PO DAILY 07/30/21 08/22/21 methotrexate sodium 2.5 mg tablet 20 mg PO QWEEK 07/30/21 08/22/21 Previous Rx's Medication Instructions Recorded lisinopril 5 mg tablet 5 mg PO BID #90 tabs 08/26/19 Allergies Allergy/AdvReac Type Severity Reaction Status Date / Time Sulfa (Sulfonamide Allergy Verified 08/22/21 09:44 Antibiotics) venlafaxine HCl Allergy Verified 08/22/21 09:44 [From Effexor] foods Allergy Uncoded 08/22/21 09:44 General Stated Complaint: Chest Pain KARLA: 3 Review of Systems Narrative: No fever or chills. Recently tested negative for COVID and received her fourth booster after having the illness approximately 1 month ago. No syncope. Positive exertional dyspnea over 2 to 3 days time. 8 systems were reviewed and otherwise negative PFSH All Active Problems (Updated 08/22/21 @ 14:17 by Steve Webster MD) Weakness (Acute) History of coronary artery stent placement (Chronic) Hypothyroidism (Chronic) Chest pain (Acute) High risk medication use (Acute) Aortic regurgitation (Acute) Shortness of breath (Acute) Coronary artery disease (Chronic) Medical History Anxiety disorder B12 deficiency Bright red blood per rectum Chest fullness Chest pressure Chronic low back pain Depression Dyspnea on exertion Elevated blood pressure reading Fatigue H pylori ulcer History of coronary artery stent placement Hx of cardiac catheterization Hx of depression headache Hyperlipidemia Hypothyroidism Insomnia Osteopenia Psoriasis Skin lesion Subacromial bursitis Surgical History Colonoscopy - [facility] (11/25/16) Social History Smoking/Tobacco Use Status: Former Tobacco Use Smoking risk assessment performed?: Yes Alcohol Intake: current Alcohol Intake frequency: a few times a week Drug use: Never Do you feel safe at home: Yes Do you feel safe in your relationship?: Yes Exam Narrative Exam Narrative: GEN: awake, alert, oriented 3. Pleasant, well groomed, interactive. HEAD: Normocephalic, atraumatic ENT: Mucous membranes moist, oropharynx unremarkable, External ear exam unremarkable EYES: PERRL, EOMI NECK: Full ROM, no OPHELIA, no menigismus CHEST/RESP: Nontender, clear to auscultation bilateral, no wheeze/rhonchi/rales CARDIOVASCULAR: RRR, soft blowing murmur, rub oscar. 2+ Rad pulse bilateral ABDOMEN: Soft, nontender, no mass. +Bowel sounds EXT: Full ROM, no edema, no rash Neuro: Grossly normal neurologic exam, conversant, interactive. Psych: Speech fluent, thoughts congruent, affect normal Course Vital Signs Vital signs: Vital Signs Temperature 36.6 C 08/22/21 09:41 Pulse 58 L 08/22/21 09:41 Respiratory Rate 24 08/22/21 09:41 Blood Pressure 156/84 H 08/22/21 09:41 Pulse Oximetry 98 08/22/21 09:41 Temperature 36.6 C 08/22/21 09:41 Temperature Source Skin 08/22/21 09:41 Pulse 60 08/22/21 10:01 Pulse 61 08/22/21 10:01 Respiratory Rate 15 08/22/21 10:01 Respiratory Effort 08/22/21 09:50 Respiratory Depth Normal 08/22/21 09:50 Respiratory Pattern Normal 08/22/21 09:50 Blood Pressure 152/76 H 08/22/21 10:01 Blood Pressure Mean 95 08/22/21 10:01 Blood Pressure Position Supine 08/22/21 09:41 Pulse Oximetry 96 08/22/21 10:01 Oxygen Delivery Method Room Air 08/22/21 09:41 Oxygen Flow Rate 0 08/22/21 09:41 Pain Level 4 08/22/21 09:41
[2021-08-22 10:16] LABS: Abs Immature Grans 0.01 10^3/uL (0.0-0.06); Absolute Basophil Count 0.02 10^3/uL (0.0-0.2); Absolute Eosinophil Count 0.36 10^3/uL (0.0-0.7); Absolute Lymphocyte Count 1.18 10^3/uL (1.2-3.4); Absolute Monocyte Count 0.36 10^3/uL (0.1-0.8); Absolute Neutrophil Count 1.81 10^3/uL (1.2-6.7); Basophils % 0.5; Eosinophils % 9.6; HCT 40.9 % (36.0-46.0); HGB 13.8 g/dL (11.2-15.7); Immature Grans % 0.3; Lymphocytes % 31.6; MCH 33.8 pg (27.0-33.0); MCHC 33.7 % (32.0-36.0); MCV 100 fL (80-95); MPV 8.9 fL (8.0-11.0); Monocytes % 9.6; Neutrophils % 48.4; Platelet Count 252 10^3/uL (130-400); RBC 4.08 10^6/uL (3.93-5.22); RDW 13.4 % (11.7-14.6); RDW-SD 49.4 fL; WBC 3.74 10^3/uL (4.4-10.8)
--- NOTE | 2021-08-22 10:30 | RT.EKG_ITS ---
APPROVED REPORT Exam: Resting ECG Reason for Exam: dizzy Patient Location: E HR:51 bpm ECG Measurements Heart Rate 51 AXIS AL 200 P 69 QRSd 74 QRS 37 QT 455 T 54 QTc 419 Conclusion Sinus bradycardia...rate< 60
[2021-08-22 10:45] LABS: ALT 30 U/L (14-59); AST 32 U/L (15-37); Albumin 3.8 g/dL (3.4-5.0); Alkaline Phosphatase 107 U/L (46-116); Anion Gap 10.2 mmol/L (3-11); BUN 27 mg/dL (7-18); Bilirubin, Total 1.1 mg/dL (0.2-1.0); CO2 24.8 mmol/L (21.0-32.0); CREATININE 1.1 mg/dL (0.55-1.02); Calcium 9.4 mg/dL (8.5-10.1); Chloride 102 mmol/L (98-107); Estimated GFR 48.04 (mL/min/1.73m2); Glucose 104 mg/dL (74-106); Magnesium 2.3 mg/dL (1.8-2.4); NT-proBNP 30 pg/mL (<300); Sodium 137 mmol/L (136-145); Total Protein 7.7 g/dL (6.4-8.2)
[2021-08-22 10:54] LABS: Troponin I 56 ng/L (<or=60)
[2021-08-22] MEDS: Acetaminophen 500 MG TAB 1000 MG PO (10:56)
[2021-08-22] MEDS: Aspirin 325 MG TAB PO (10:59)
[2021-08-22 11:00] LABS: D-Dimer 721 ng/mlFEU (<500)
--- NOTE | 2021-08-22 11:00 | DI.CT_ITS ---
Exam(s) CT CHEST PE CTA EXAM: CT CHEST PE CTA CLINICAL HISTORY: Dyspnea, elev ddimer. TECHNIQUE: Imaging Protocol: Axial CT angiography was performed with multi-slice acquisition and mu lti-planar and/or 3D reconstructions. CONTRAST MATERIAL: Intravenous: Omnipaque 350 Contrast volume:structured data in ml COMPARISON: CT ABD PELVIS WITH CONTRAST from 11/14/2016 FINDINGS: CT angiography of the chest was performed with intravenous infusion of 100 cc of Omnipaque 350. Note is made large hiatal hernia. The lungs are clear. No pleural effusion. Tracheobronchial tree appears intact. No evidence of pulmonary embolic disease. Thoracic aorta is of normal diameter, no thoracic aortic an eurysm or dissection, major branch vessels appear intact. No mediastinal or hilar adenopathy. Images obtained through the upper abdomen show unremarkable appearance of the visualized portions of the liver, spleen, pancreas, adrenals, and kidneys. IMPRESSION: Negative CT angiogram of the chest. No evidence of pulmonary embolic disease. RADIATION DOSE DELIVERED: 538.88mGy.cm Total DLP 538.88mGy.cm Total DLP !Error CTDIvol DATA REPOSITORY: All CT scans at this facility are submitted to the National Radiology Data Registry (NRDR) Dose Index Registry (DIR) with the [employer] (A[employer]). RADIATION OPTIMIZATION: All CT scans at this facility use at least one of these dose optimization te chniques: automated exposure control; mA and/or kV adjustment per patient size (includes targeted exa ms where dose is matched to clinical indication); or iterative reconstruction.
[2021-08-22] MEDS: Omnipaque 350 MG/ML 100 ML BTL IJ (12:06)
[2021-08-22] MEDS: Normal Saline Flush 10 ML SYR IVP ×3 (12:07→20:33)
--- NOTE | 2021-08-22 12:30 | RT.EKG_ITS ---
APPROVED REPORT Exam: Resting ECG Reason for Exam: 2nd trop Patient Location: E HR:46 bpm ECG Measurements Heart Rate 46 AXIS AK 203 P 60 QRSd 72 QRS 41 QT 484 T 58 QTc 424 Conclusion Sinus bradycardia...rate< 60
[2021-08-22 13:13] LABS: Bilirubin Negative (Negative); Blood Negative (Negative); Clarity Clear (Clear); Glucose Negative (Negative); Ketones Negative (Negative); Leukocyte Esterase Trace (Negative); Nitrite Negative (Negative); pH 6.5 (5-8)
[2021-08-22 13:17] LABS: Potassium 4.5 mmol/L (3.5-5.1)
[2021-08-22 13:19] LABS: Troponin I < 50 ng/L (<or=60)
[2021-08-22 13:21] LABS: Bacteria Negative HPF (Negative); C & S Indicated? Yes; Casts Negative LPF (Negative); Crystals Negative HPF (Negative); Epithelial Cells Rare HPF (Negative); Mucus Negative (Negative); RBC Negative HPF (0-2); WBC 0-2 HPF (0-5)
--- NOTE | 2021-08-22 13:39 | HPE_ITS ---
Date of service: 08/22/21 Time of Service: 13:39 Assessment and Plan Assessment and plan (1) Chest pain: Status: Acute Assessment and plan: referred to observation for chest pain rule out HI. cycle troponins schedule stress test, echo continue asa, echo from 2020: Conclusion Left Ventricle : The left ventricle is normal size. The left ventricular systolic function is normal. The left ventricular ejection fraction is within the normal range. There is normal left ventricular wall thickness. There is normal LV segmental wall motion. The left ventricular diastolic function is normal. LVEF is 55-60%. Right Ventricle : The right ventricle is normal size. The right ventricular systolic function is normal. The RVSP is 17.5 mmHg. Atria : The left atrium size is normal. The right atrium size is normal. Aortic Valve : The Aortic valve is sclerotic. Aortic valve is trileaflet. Mild aortic stenosis. Moderate aortic regurgitation. Mitral Valve : The mitral valve is normal in structure. No evidence of mitral valve stenosis. Trace mitral regurgitation. Great Vessels : IVC is normal in size and collapses >50% with inspiration. The remainder of study for additional details. There is no prior echocardiogram available for comparison. (2) Hypothyroidism: Status: Chronic Assessment and plan: last TSH 10/14 was 2.97 will recheck and continue home dosing (3) Coronary artery disease: Status: Chronic Assessment and plan: take asa, not on statin or betablocker. (4) History of coronary artery stent placement: Status: Chronic Assessment and plan: see above stress test pending. discussed with DR Carr History of Present Illness History of Present Illness Chief Complaint: chest pain Narrative: presents to ED after several days of dyspnea and diaphoresis on exertion. reports some substernal pressure. no chest pain. no fever chills or recent illness. she is typically active, walks and golfs but says maybe this past winter not as active. [place] and has been doing a lot of work preparing the house and is having the symptoms more frequently now. work up in the ED shows normal trop and ekg. she is being admitted for stress testing. Review of Systems Constitutional Constitutional: Reports system reviewed and no additional complaints, except as documented Cardiovascular Cardiovascular: Reports chest pain and Reports dyspnea Respiratory Respiratory: Reports dyspnea PFSH All Active Problems (Updated 08/22/21 @ 14:17 by Steve Webster MD) Weakness (Acute) History of coronary artery stent placement (Chronic) Hypothyroidism (Chronic) Chest pain (Acute) High risk medication use (Acute) Aortic regurgitation (Acute) Shortness of breath (Acute) Coronary artery disease (Chronic) Medical History Anxiety disorder B12 deficiency Bright red blood per rectum Chest fullness Chest pressure Chronic low back pain Depression Dyspnea on exertion Elevated blood pressure reading Fatigue H pylori ulcer History of coronary artery stent placement Hx of cardiac catheterization Hx of depression headache Hyperlipidemia Hypothyroidism Insomnia Osteopenia Psoriasis Skin lesion Subacromial bursitis Surgical History Colonoscopy - MAC (11/25/16) Social History Smoking/Tobacco Use Status: Former Tobacco Use Smoking risk assessment performed?: Yes Alcohol Intake: current Alcohol Intake frequency: a few times a week Drug use: Never Do you feel safe at home: Yes Do you feel safe in your relationship?: Yes Meds Allergies and Home Medications Allergies Allergy/AdvReac Type Severity Reaction Status Date / Time Sulfa (Sulfonamide Allergy Verified 08/22/21 09:44 Antibiotics) venlafaxine HCl Allergy Verified 08/22/21 09:44 [From Effexor] foods Allergy Uncoded 08/22/21 09:44 Home Medications Medication Instructions Recorded Confirmed Type epinephrine 0.3 mg/0.3 mL 0.3 mg IM ONCE 09/23/12 08/22/21 History injection, auto-injector (EpiPen 2-Chong) nitroglycerin 0.4 mg sublingual 0.4 mg sublingual PRN 09/23/12 08/22/21 History tablet vitamins A,C,T-oeqa-ozdhrf 7,160 1 ea PO DAILY 09/23/12 08/22/21 History unit-113 mg-100 unit tablet (PreserVision AREDS) aspirin 81 mg chewable tablet 81 mg PO DAILY ##30 11/17/15 08/22/21 History calcium carbonate 600 mg-vitamin 1 ea PO DAILY 09/12/17 08/22/21 History D3 5 mcg (200 unit) tablet (Calcium 600 + D(3)) cyanocobalamin (vitamin B-12) 1,000 mcg IJ Q30D 09/12/17 08/22/21 History 1,000 mcg/mL injection solution pantoprazole 40 mg tablet,delayed 40 mg PO DAILY 09/12/17 08/22/21 History release paroxetine HCl 30 mg tablet (Paxil) 30 mg PO DAILY 09/12/17 08/22/21 History folic acid 1 mg tablet 1 mg PO DAILY 07/10/18 08/22/21 History methotrexate sodium 2.5 mg tablet 20 mg PO QWEEK 07/30/21 08/22/21 History atorvastatin 40 mg tablet 40 mg PO DAILY 08/22/21 08/22/21 History lisinopril 20 mg tablet 20 mg PO BID 08/22/21 08/22/21 History Exam Const General: cooperative, healthy appearing (younger than stated age), comfortable and no acute distress [facility] Head: normal to inspection, normocephalic and atraumatic Mouth: oral mucosae normal Chest Chest: normal inspection of the chest Resp Effort & Inspection: normal respiratory effort Auscultation: clear to auscultation bilaterally Cardio Rate: regular rate Rhythm: regular rhythm Heart Sounds: murmur systolic II/ GI Inspection: normal to inspection Skin General skin exam: no rashes or lesions noted Neuro General: patient alert, patient awake and patient oriented x3 Extrem General: normal to inspection, full ROM and no pedal edema Results Labs Result diagrams: 08/22/21 09:48 08/22/21 12:50 Labs: Laboratory Results - last 24 hr 08/22/21 08/22/21 08/22/21 09:48 09:48 09:48 WBC 3.74 L RBC 4.08 Hgb 13.8 Hct 40.9 MCV 100 H MCH 33.8 H MCHC 33.7 RDW 13.4 Plt Count 252 MPV 8.9 Immature Gran % 0.3 Neutrophils % 48.4 Lymphocytes % 31.6 Monocytes % 9.6 Eosinophils % 9.6 Basophils % 0.5 Nucleated RBC % 0.0 Absolute Neutrophils 1.81 Absolute Lymphocytes 1.18 L Absolute Monocytes 0.36 Absolute Eosinophils 0.36 Absolute Basophils 0.02 D-Dimer 721 H Sodium 137 Potassium Chloride 102 Carbon Dioxide 24.8 Anion Gap 10.2 BUN 27 H Creatinine 1.1 H Estimated GFR/1.73 m2 48.04 Glucose 104 Calcium 9.4 Magnesium 2.3 Total Bilirubin 1.1 H AST 32 ALT 30 Alkaline Phosphatase 107 Troponin I 56 NT-Pro-B Natriuret Pep 30 Total Protein 7.7 Albumin 3.8 Urine Color Urine Clarity Urine pH Ur Specific [place] Urine Protein Urine Ketones Urine Blood Urine Nitrite Urine Bilirubin Urine Urobilinogen Ur Leukocyte Esterase Urine RBC Urine WBC Ur Epithelial Cells Urine Crystals Urine Bacteria Urine Casts Urine Mucus Ur Culture Indicated? Urine Glucose 08/22/21 08/22/21 08/22/21 12:50 12:50 13:00 WBC RBC Hgb Hct MCV MCH MCHC RDW Plt Count MPV Immature Gran % Neutrophils % Lymphocytes % Monocytes % Eosinophils % Basophils % Nucleated RBC % Absolute Neutrophils Absolute Lymphocytes Absolute Monocytes Absolute Eosinophils Absolute Basophils D-Dimer Sodium Potassium 4.5 Chloride Carbon Dioxide Anion Gap BUN Creatinine Estimated GFR/1.73 m2 Glucose Calcium Magnesium Total Bilirubin AST ALT Alkaline Phosphatase Troponin I < 50 NT-Pro-B Natriuret Pep Total Protein Albumin Urine Color Yellow Urine Clarity Clear Urine pH 6.5 Ur Specific [place] 1.020 Urine Protein Negative Urine Ketones Negative Urine Blood Negative Urine Nitrite Negative Urine Bilirubin Negative Urine Urobilinogen 2.0 H Ur Leukocyte Esterase Trace H Urine RBC Negative Urine WBC 0-2 Ur Epithelial Cells Rare Urine Crystals Negative Urine Bacteria Negative Urine Casts Negative Urine Mucus Negative Ur Culture Indicated? Yes Urine Glucose Negative Last Vital Signs Temp 36.6 C 08/22/21 09:41 Pulse 50 L 08/22/21 13:16 Resp 18 08/22/21 13:20 BP 111/62 08/22/21 13:16 Pulse Ox 94 08/22/21 13:20
[2021-08-22 14:32] LABS: Source Nasal/Nares
[2021-08-22] MEDS: nitroGLYcerin 0.4 MG TAB SL ×2 (17:57→18:05)
--- NOTE | 2021-08-22 18:00 | RT.EKG_ITS ---
APPROVED REPORT Exam: Resting ECG Reason for Exam: chest pain Patient Location: I HR:78 bpm ECG Measurements Heart Rate 78 AXIS OK 179 P 57 QRSd 105 QRS 20 QT 422 T 48 QTc 481 Conclusion Sinus rhythm...normal P axis, V-rate 50- 99 Borderline low voltage, extremity leads...all extremity leads <0.6mV
[2021-08-22 18:43] LABS: Troponin I < 50 ng/L (<or=60)
[2021-08-22] MEDS: Normal Saline 1,000 ML 80 ML IV (19:05)
[2021-08-22] MEDS: Lisinopril 20 MG TAB PO (20:32)
[2021-08-22] MEDS: Atorvastatin 40 MG TAB PO (20:33)
[2021-08-22 22:21] LABS: Troponin I 50 ng/L (<or=60)
[2021-08-23] VITALS (7 sets, daily range): BP systolic 131–145; BP diastolic 71–102; PULSE 53–77; RESP 18; TEMP 35.7–36.4; O2SAT 94–96
--- NOTE | 2021-08-23 | DI.US_ITS ---
APPROVED REPORT EXAM: Comprehensive 2D, Doppler, and color-flow Echocardiogram Patient Location: In-Patient Room/Bed: [facility] [place][note 3] Tax Appraiser: Tala Castaneda RDCS (AE) Indications: Chest pain Other Information Study Quality: Adequate Conclusion Normal left ventricular wall thickness and chamber size. Estimated ejection fraction is 55 to 60%. Wall motion is normal Normal right ventricular size and systolic function Both atria are normal in size Aortic valve is trileaflet and sclerotic. There is mild aortic stenosis. Mean gradient is 13.8. Ca lculated aortic valve area is 1.64 cm??. There is moderate aortic regurgitation Normal mitral valve with trace regurgitation Normal tricuspid valve with trace regurgitation. Estimated right ventricular systolic pressure is 22 mmHg Borderline dilated ascending aorta measuring 3.35 cm Results are similar to prior echocardiogram from 2019 Wall motion Left Ventricle The left ventricle is normal size. The left ventricular systolic function is normal. The left ventric ular ejection fraction is within the normal range. There is normal left ventricular wall thickness. T here is normal LV segmental wall motion. There is no ventricular septal defect visualized. LVEF is 58 %. Right Ventricle The right ventricle is normal size. The right ventricular systolic function is normal. The RVSP is 22 .1 mmHg. Atria The left atrium size is normal. The right atrium size is normal. The interatrial septum is intact wit h no evidence for an atrial septal defect. Aortic Valve Aortic valve is calcified. Aortic valve is trileaflet. Mild aortic stenosis. Moderate aortic regurgit ation. Mitral Valve The mitral valve is normal in structure. No evidence of mitral valve stenosis. Trace mitral regurgita tion. Tricuspid Valve The tricuspid valve is normal in structure. There is no tricuspid valve stenosis. Trace tricuspid reg urgitation. Pulmonic Valve The pulmonary valve is normal in structure. There is no pulmonic valvular stenosis. Trace pulmonic re gurgitation. Great Vessels The aortic root is normal in size. The ascending aorta is borderline dilated. Aortic arch is normal i n caliber. IVC is normal in size and collapses >50% with inspiration. Pericardium There is no pericardial effusion. 2D Dimensions IVSD d PLAX 0.91 cm F: 0.6-1.0 LV Vol A2C d MOD 76.9 mL LVPW d PLAX 0.93 cm F: 0.6 - 1.0 LV Vol A4C d MOD 115.1 mL LVID d PLAX 4.78 cm F: 3.8 - 5.2 LA vol/ BSA A2C s A-L 25.3 mL/m2 LVDs 3.35 cm F: 2.2 - 3.5 LA vol/ BSA A4C s A-L 23.1 mL/m2 Ao Root d 3.23 cm F: 2.7 - 3.3 LA Vol/ BSA Biplane s A-L 24.7 mL/m2 RA Area A4C 9.01 cm2 LA Area A4C s MOD 16.18 cm2 RA Vol/ BSA A4C s A-L 9.5 mL/m2 LA Area A2C s MOD 17.33 cm2 Ao Asc Diam d 3.33 cm F: 2.3 - 3.1 LV EF A4C MOD 58.4 % LV EF Teichholz 55.5 % LV EF A2C MOD 57.8 % LVEF (Suárez's) 59.86 % F: 54 - 74 LV EF Biplane MOD 59.9 % LV Volume 77.13 mL F: 46 - 106 SV 60.27 mL LV Volume Index 41.02 mL/m2 F: 29 - 61 SV Index 32.08 mL/m2 LV Vol Biplane MOD 100.7 mL FS 28.90 % M-Mode TAPSE 1.08 cm (M/F) >1.7 LV Diastology MV E' medial 0.093 (>0.07 m/s) E/A Ratio 1.2 LV E/e MED 8.90 (<14) MV E Vmax 0.83 (0.4-1.3 m/s) MV E' lateral 0.080 (>0.1 m/s) MV A Vmax 0.70 (0.4-1.3 m/s) LV E/e LAT 10.30 (<14) MV E/A Ratio 1.12 MV E/E' medial 8.91 MV E/E' lateral 10.33 Aortic Valve LVOT Area 3.38 cm2 AoV Area Vmax 1.64 cm2 LVOT Vmax 1.16 m/s AoV Area/ BSA (Vmax) 0.88 cm2/m2 LVOT Mean Benson. 0.82 m/s VY Mean Benson. 1.65 cm2 LVOT Peak Grad 5.4 mmHg VY Mean Benson. Index 0.88 cm2/m2 LVOT Mean Grad 3.1 mmHg AR DT 3343 msec LVOT VTI 0.291 m AR PHT 970 msec LVOT Diam s 2.05 cm AoV Vmax 2.38 m/s Velocity Ratio 0.48 AoV Mean Benson. 1.69 m/s AoV Peak Grad 22.6 mmHg LVOT SV 98.13 mL AoV Mean Grad 12.8 mmHg AoV VTI 0.561 m AoV Area VTI 1.75 cm2 AoV Area/ BSA (VTI) 0.93 cm/m2 Mitral Valve MV DT 225 (160-240 msec) MV PHT 65 msec MV Area PHT 3.36 cm2 MV VTI 0.435 m MV Area VTI 2.26 (4.0-6.0 cm2) Pulmonary Valve PV Vmax 0.93 (0.5-1.5 m/s) RVOT Peak Gr. 3.11 mmHg PV Peak Grad 3.5 mmHg RVOT Mean Gr. 1.65 mmHg PV Mean Grad 2.0 mmHg RVOT VTI 0.223 m PV VTI 0.240 m RVOT Vmax 0.88 m/s Tricuspid Valve TR Peak Grad 19.1 mmHg TR Vmax 2.19 m/s RA Pressure 3.00 mmHg RVSP (TR) 22.1 mmHg
[2021-08-23 00:24] LABS: COVID-19 PCR Negative (Negative)
[2021-08-23 07:20] LABS: Calculated LDL 108 mg/dL (<100); Cholesterol 182 mg/dL (<200); HDL Cholesterol 44 mg/dL (40-60); Triglyceride 154 mg/dL (<150)
--- NOTE | 2021-08-23 08:00 | DI.NM_ITS ---
APPROVED REPORT Exam: Exercise Treadmill Patient Location: In-Patient Room/Bed: [facility] Stress Nurse: Kat Chicas RN Ordering Provider:MARY KATE CORDERO, Contact Number: [phone] BMI: 30.89 Baseline Rhythm: Sinus Bradycardia Indications: Chest pain. Hx of CAD. Stent placement x2. Medical History Medical History: CAD. Chest pain. HANDLEY. HLD. CVD. Anxiety/depression. Cardiac Medications: Atorvastatin. Lisinopril. Aspirin. Pantoprazole. Nitroglycerin. Allergies: Venlafaxine. Sulfa Abx. Cardiac Risk Factors: Family hx. CVD. HTN. Former smoker. HLD. Previous Cardiac Procedures: Cardiac stent x2 (2009,2015) Pretest Chest Pain Characteristics: none Exercise History: Sedentary Physical Disabilities: none Lung Sounds: Clear to auscultation Heart Sounds: Murmur Stress Test Details Test: Exercise stress testing was performed using a Koffi protocol. Nuclear Acquisition: Rest Tc-99m/Stress Tc-99m 1 day Rest Isotope: Tc-99m Sestamibi. Dose: 9.0 Date: 08/23/2021 Injection Time: 1300 Stress Isotope: Tc-99m Sestamibi. Dose: 30.0 Date: 08/23/2021 Injection Time: 1415 HR Resting HR Supine: 55 bpm Max Heart Rate (APMHR): 142.833734 bpm Resting HR Standin bpm Target HR (85% APMHR): 120.952372 bpm Max HR Achieved: 152 bpm % of APMHR: 107.04 Recovery HR: 81 bpm HR response to stress: Normal HR response to stress BP Resting BP Supine: 152/80 mmHg Resting BP Standin/88 mmHg Max BP: 254/104 mmHg Recovery BP: 170/88 mmHg BP response to stress: Abnormal hypertensive response to stress. ECG Resting ECG: Sinus Bradycardia Ectopy: none Stress ECG: Sinus Tachycardia ST Change: No significant ST segment changes noted Arrhythmia: VPC's Recovery ECG: Sinus Rhythm Recovery ST Change: No significant ST segment changes noted Recovery Arrhythmia: none Clinical Reason for Termination: Fatigue, Dizziness Stress Symptoms: General Fatigue, Dizziness Exercise duration: 3 min48 sec Highest Stage Reached: Stage 2: 2.5 mph at 12% grade. Exercise capacity: 5.59 METs Scale: Sedentary Angina Score: None [place] Treadmill Score: 3.7 Rate Pressure Product: [id number] Stress ECG Conclusion 1. Resting electrocardiogram was within normal limits 2. Patient exercised on the Koffi protocol and completed a workload of 5.59 METS, stopping due to fat igue and dizziness 3. Hypertensive blood pressure response to exercise. Accelerated heart rate response to exercise. T he patient achieved greater than 100% of predicted heart rate for age 4. Electrocardiographic portion of the test showed no evidence of myocardial ischemia 5. There were no significant dysrhythmias 6. See MPI report [place] Treadmill Score is 3.7 which is Moderate risk. Stress Test Summary STAGE Time (mins) Speed (mph) Grade (%) HR BP SYMPTOMS METS Supine 55 152/80 Standing 72 134/88 1 3 1.7 10 143 156/94 4.6 2 6 2.5 12 SOB, Dizzy and lightheaded, SP02 94% on R/A 7 1 min recovery 126 254/104 SP02 97% on R/A 3 min recovery 92 206/94 6 min recovery 81 170/88 Lightheadedness/dizzyness subsided. MPI Conclusion Myocardial perfusion is normal without evidence of ischemia or prior infarction EF is calculated at 81%, normal wall motion Radiologist Interpretation Radiologist Interpretation by: Adan Baptiste MD Interpretation Date/Time: 08/23/2021 16:10:45
--- NOTE | 2021-08-23 08:59 | W.CARDCONSUL ---
Date of service: 08/23/21 Time of Service: 08:59 Assessment and Plan Assessment and plan (1) Shortness of breath: Status: Acute Assessment and plan: To some extent this is chronic but it seems to be worse since she had COVID. I suspect an echocardiogram has been ordered. It will be reviewed when available (2) Coronary artery disease: Status: Chronic Assessment and plan: Await MPI (3) Aortic regurgitation: Status: Acute Assessment and plan: See above, check echo History of Present Illness History of Present Illness Chief Complaint: Shortness of breath Narrative: Cardiac evaluation is requested in this 76-year-old woman who presented with shortness of breath. She is a fair historian. She reports that she was relatively stable until early July when she and her both contracted COVID. She has noted since then that she has less exercise capacity and more exertional dyspnea. The day of presentation she awakened from sleep and felt that her left arm was heavy. She wondered if she had slept in a position that caused this. 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 She found this quite taxing and was short of breath and had to stop. The shortness of breath persisted. She called her care provider and was referred to the emergency room where she was evaluated and admitted Troponins have been negative. EKGs are basically normal Patient has known coronary artery disease. In 2009 she had a drug-eluting stent to the right coronary artery and in 2015 she had a drug-eluting stent to the left anterior descending. She subsequently had cardiac catheterization done in 2018 for atypical chest pain. Both stents were patent. There were no new narrowings though there were multiple 20 to 30% stenoses rather diffusely. Medical management was recommended. She has since had exercise testing with myocardial perfusion imaging, last done in 2019, negative for myocardial ischemia She has a history of mild aortic stenosis, mild to moderate aortic regurgitation. Last echocardiogram was also in 2020 She is scheduled for a myocardial perfusion imaging study later today Review of Systems Cardiovascular Cardiovascular: Reports as per HPI, Denies chest pain with activity, Reports dyspnea, Reports dyspnea on exertion, Denies orthopnea and Denies paroxysmal nocturnal dyspnea Respiratory Respiratory: Reports dyspnea and Reports dyspnea on exertion PFSH All Active Problems (Updated 08/22/21 @ 14:17 by Steve Webster MD) Weakness (Acute) History of coronary artery stent placement (Chronic) Hypothyroidism (Chronic) Chest pain (Acute) High risk medication use (Acute) Aortic regurgitation (Acute) Shortness of breath (Acute) Coronary artery disease (Chronic) Medical History Anxiety disorder B12 deficiency Bright red blood per rectum Chest fullness Chest pressure Chronic low back pain Depression Dyspnea on exertion Elevated blood pressure reading Fatigue H pylori ulcer History of coronary artery stent placement Hx of cardiac catheterization Hx of depression headache Hyperlipidemia Hypothyroidism Insomnia Osteopenia Psoriasis Skin lesion Subacromial bursitis Surgical History Colonoscopy - MAC (11/25/16) Social History Smoking/Tobacco Use Status: Former Tobacco Use Smoking risk assessment performed?: Yes Alcohol Intake: current Alcohol Intake frequency: a few times a week Drug use: Never Do you feel safe at home: Yes Do you feel safe in your relationship?: Yes Exam Const Other: Well-developed well-nourished looks a bit younger than stated age lying flat in bed no acute distress Neck Other: No neck vein distention no V waves carotid upstrokes are normal there are no bruits heard Resp Auscultation: clear to auscultation bilaterally Cardio Other: Heart is regular with a 2/6 systolic ejection quality murmur Extrem Other: No peripheral edema, intact distal pulses Results Last Vital Signs Temp 36.3 C L 08/23/21 07:29 Pulse 58 L 08/23/21 07:29 Resp 18 08/23/21 07:29 BP 134/81 08/23/21 07:29 Pulse Ox 94 08/23/21 07:29 Labs Result diagrams: 08/22/21 09:48 08/22/21 12:50 Labs: Laboratory Results - last 24 hr 08/22/21 08/22/21 08/22/21 09:48 09:48 09:48 WBC 3.74 L RBC 4.08 Hgb 13.8 Hct 40.9 MCV 100 H MCH 33.8 H MCHC 33.7 RDW 13.4 Plt Count 252 MPV 8.9 Immature Gran % 0.3 Neutrophils % 48.4 Lymphocytes % 31.6 Monocytes % 9.6 Eosinophils % 9.6 Basophils % 0.5 Nucleated RBC % 0.0 Absolute Neutrophils 1.81 Absolute Lymphocytes 1.18 L Absolute Monocytes 0.36 Absolute Eosinophils 0.36 Absolute Basophils 0.02 D-Dimer 721 H Sodium 137 Potassium Chloride 102 Carbon Dioxide 24.8 Anion Gap 10.2 BUN 27 H Creatinine 1.1 H Estimated GFR/1.73 m2 48.04 Glucose 104 Calcium 9.4 Magnesium 2.3 Total Bilirubin 1.1 H AST 32 ALT 30 Alkaline Phosphatase 107 Troponin I 56 NT-Pro-B Natriuret Pep 30 Total Protein 7.7 Albumin 3.8 Triglycerides Total Cholesterol LDL Cholesterol, Calc HDL Cholesterol TSH Urine Color Urine Clarity Urine pH Ur Specific [place] Urine Protein Urine Ketones Urine Blood Urine Nitrite Urine Bilirubin Urine Urobilinogen Ur Leukocyte Esterase Urine RBC Urine WBC Ur Epithelial Cells Urine Crystals Urine Bacteria Urine Casts Urine Mucus Ur Culture Indicated? Urine Glucose COVID-19 Source SARS-CoV-2 (PCR) 08/22/21 08/22/21 08/22/21 12:50 12:50 12:50 WBC RBC Hgb Hct MCV MCH MCHC RDW Plt Count MPV Immature Gran % Neutrophils % Lymphocytes % Monocytes % Eosinophils % Basophils % Nucleated RBC % Absolute Neutrophils Absolute Lymphocytes Absolute Monocytes Absolute Eosinophils Absolute Basophils D-Dimer Sodium Potassium 4.5 Chloride Carbon Dioxide Anion Gap BUN Creatinine Estimated GFR/1.73 m2 Glucose Calcium Magnesium Total Bilirubin AST ALT Alkaline Phosphatase Troponin I < 50 NT-Pro-B Natriuret Pep Total Protein Albumin Triglycerides Total Cholesterol LDL Cholesterol, Calc HDL Cholesterol TSH 2.80 Urine Color Urine Clarity Urine pH Ur Specific [place] Urine Protein Urine Ketones Urine Blood Urine Nitrite Urine Bilirubin Urine Urobilinogen Ur Leukocyte Esterase Urine RBC Urine WBC Ur Epithelial Cells Urine Crystals Urine Bacteria Urine Casts Urine Mucus Ur Culture Indicated? Urine Glucose COVID-19 Source SARS-CoV-2 (PCR) 08/22/21 08/22/21 08/22/21 13:00 14:25 18:13 WBC RBC Hgb Hct MCV MCH MCHC RDW Plt Count MPV Immature Gran % Neutrophils % Lymphocytes % Monocytes % Eosinophils % Basophils % Nucleated RBC % Absolute Neutrophils Absolute Lymphocytes Absolute Monocytes Absolute Eosinophils Absolute Basophils D-Dimer Sodium Potassium Chloride Carbon Dioxide Anion Gap BUN Creatinine Estimated GFR/1.73 m2 Glucose Calcium Magnesium Total Bilirubin AST ALT Alkaline Phosphatase Troponin I < 50 NT-Pro-B Natriuret Pep Total Protein Albumin Triglycerides Total Cholesterol LDL Cholesterol, Calc HDL Cholesterol TSH Urine Color Yellow Urine Clarity Clear Urine pH 6.5 Ur Specific [place] 1.020 Urine Protein Negative Urine Ketones Negative Urine Blood Negative Urine Nitrite Negative Urine Bilirubin Negative Urine Urobilinogen 2.0 H Ur Leukocyte Esterase Trace H Urine RBC Negative Urine WBC 0-2 Ur Epithelial Cells Rare Urine Crystals Negative Urine Bacteria Negative Urine Casts Negative Urine Mucus Negative Ur Culture Indicated? Yes Urine Glucose Negative COVID-19 Source Nasal/Nares SARS-CoV-2 (PCR) Negative 08/22/21 08/23/21 21:50 06:27 WBC RBC Hgb Hct MCV MCH MCHC RDW Plt Count MPV Immature Gran % Neutrophils % Lymphocytes % Monocytes % Eosinophils % Basophils % Nucleated RBC % Absolute Neutrophils Absolute Lymphocytes Absolute Monocytes Absolute Eosinophils Absolute Basophils D-Dimer Sodium Potassium Chloride Carbon Dioxide Anion Gap BUN Creatinine Estimated GFR/1.73 m2 Glucose Calcium Magnesium Total Bilirubin AST ALT Alkaline Phosphatase Troponin I 50 NT-Pro-B Natriuret Pep Total Protein Albumin Triglycerides 154 H Total Cholesterol 182 LDL Cholesterol, Calc 108 H HDL Cholesterol 44 TSH Urine Color Urine Clarity Urine pH Ur Specific [place] Urine Protein Urine Ketones Urine Blood Urine Nitrite Urine Bilirubin Urine Urobilinogen Ur Leukocyte Esterase Urine RBC Urine WBC Ur Epithelial Cells Urine Crystals Urine Bacteria Urine Casts Urine Mucus Ur Culture Indicated? Urine Glucose COVID-19 Source SARS-CoV-2 (PCR)
--- NOTE | 2021-08-23 09:53 | INITIAL_ITS ---
- If Service Date Differs Date of service: 08/23/21 Time of Service: 09:53 Care Management Initial Assess REASON FOR HOSPITALIZATION:: Chest Pain PAST MEDICAL HISTORY/PAST SURGICAL HISTORY:: All Active Problems (Updated 08/22/21 @ 14:17 by Steve Webster MD). Weakness (Acute). History of coronary artery stent placement (Chronic). Hypothyroidism (Chronic). Chest pain (Acute). High risk medication use (Acute). Aortic regurgitation (Acute). Shortness of breath (Acute). Coronary artery disease (Chronic). Medical History . Anxiety disorder. B12 deficiency. Bright red blood per rectum. Chest fullness. Chest pressure. Chronic low back pain. Depression. Dyspnea on exertion. Elevated blood pressure reading. Fatigue. H pylori ulcer. History of coronary artery stent placement. Hx of cardiac catheterization. Hx of depression headache. Hyperlipidemia. Hypothyroidism. Insomnia. Osteopenia. Psoriasis. Skin lesion. Subacromial bursitis. Surgical History . Colonoscopy - MAC (11/25/16) PREVIOUS FUNCTIONAL STATUS/SOCIAL/FAMILY SUPPORTS:: Emani lives in [place] with her Adan. ADVANCE DIRECTIVES:: None on file. 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 Medicare PRIMARY CARE PHYSICIAN:: Kristyn Whitehead PATIENT/FAMILY EDUCATION NEEDS:: Review discharge instructions, limitations, medications and plan to follow up with community providers. ask me three. TRANSPORTATION:: via private vehicle with family.
--- NOTE | 2021-08-23 13:48 | DSE_ITS ---
Date of service: 08/23/21 Time of Service: 13:49 DS: Diagnosis Discharge Diagnosis (1) Chest pain: Status: Acute (2) Hypothyroidism: Status: Chronic (3) Coronary artery disease: Status: Chronic (4) History of coronary artery stent placement: Status: Chronic Discharge Plan Disposition Patient Disposition: HOME Condition: Stable Discharge Details Reason For Visit: Chest Pain Admit Date/Time: 08/22/21 13:37 Admit Provider: Hansel Carr Attending Provider: Hansel Carr Primary Care Provider: Kristyn Whitehead V Hospital Course Hospital Course: This is a 76 year old female who presented to ED after several days of dyspnea and diaphoresis on exertion.? Her work up in the ED shows normal trop and ekg.? she was admitted for stress testing and further monitoring. Of note she has recently had covid. We were able to have her ceo ziff davis consult on this admission, per her note: Patient has known coronary artery disease.? In 2009 she had a drug-eluting stent to the right coronary artery and in 2015 she had a drug-eluting stent to the left anterior descending.? She subsequently had cardiac catheterization done in 2018 for atypical chest pain.? Both stents were patent.? There were no new narrowings though there were multiple 20 to 30% stenoses rather diffusely.? Medical management was recommended.? She has since had exercise testing with myocardial perfusion imaging, last done in 2019, negative for myocardial ischemia She has a history of mild aortic stenosis, mild to moderate aortic regurgitation.? Last echocardiogram was also in 2020. Echo on this visit was unchanged from 2020, with EF 55-60 and no WMA, moderate aortic regurg. stress testing was unremarkable. Her symptoms are likely post covid and will be referred to pulmonology for evaluation. Home Meds and New Rx's Prescriptions: Continued folic acid 1 mg tablet 1 mg PO DAILY epinephrine [EpiPen 2-Chong] 0.3 MG/0.3 ML auto-injector 0.3 mg IM ONCE PreserVision AREDS 1 EACH tablet 1 ea PO DAILY aspirin 81 MG tablet,chewable 81 mg PO DAILY Qty: 30 methotrexate sodium 2.5 mg tablet 20 mg PO QWEEK calcium carbonate-vitamin D3 [Calcium 600 + D(3)] 1 EACH tablet 1 ea PO DAILY paroxetine HCl [Paxil] 30 MG tablet 30 mg PO DAILY pantoprazole 40 MG tablet,delayed release (DR/EC) 40 mg PO DAILY cyanocobalamin (vitamin B-12) 1,000 MCG/ML solution 1,000 mcg IJ Q30D lisinopril 20 mg tablet 20 mg PO BID atorvastatin 40 mg tablet 40 mg PO DAILY nitroglycerin 0.4 MG tablet, sublingual 0.4 mg Sublingual PRN Qty: 30 0RF Discharge Instructions Instructions: Complications of Infection (GEN) Additional Instructions: POST COVID Symptoms: What symptoms are most likely to persist?This is not the same for everyone. But symptoms that are more likely to last beyond a few weeks include: ?Feeling very tired (fatigue) ?Trouble breathing ?Chest discomfort ?Cough Other physical symptoms can also continue beyond a few weeks. These include p roblems with sense of smell or taste, headache, runny nose, joint or muscle pain, trouble sleeping or eating, sweating, and diarrhea. Some people have ongoing psychological symptoms, too. These might include: ?Trouble thinking clearly, focusing, or remembering ?Depression, anxiety, or a related condition called post-traumatic stress disorder (PTSD) It's hard for doctors to predict when symptoms will improve, since this is different for different people. Your recovery will depend on your age, your overall health, and how severe your COVID-19 symptoms are. Some symptoms, like fatigue, might continue even while others improve or go away. Stand Alone Forms: Nursing Discharge Form Referrals: Kristyn Whitehead MD [Primary Care Provider] - (PLEASE CALL FRIDAY FOR AN APPOINTMENT IN THE NEXT 2 WEEKS) Kenisha Read MD [ [facility] STAFF PHYSICIAN] - (post covid ongoing sob. ) Activity:: Activity as Tolerated Equipment/Supplies:: No Equipment Needed Diet:: As Tolerated Discharge Orders Discharge Orders: Discharge Order (Routine); Ordered 08/23/21 Ordered By: Paulette Bowles Discharge Data Discharge Date/Time-TO BE ENTERED AT DEPARTURE: 08/23/21 16:56 DS: Summary Time Spent with Patient providing and/or coordinating discharge services: Less than 30 minutes Status at Discharge Functional status at discharge: independent ambulation Overall status at discharge: patient is back to baseline Mental Status: mental status grossly normal Speech and Movement: speech and movement normal Mood: congruent mood Affect: normal affect Exam Const General: cooperative, healthy appearing (younger than stated age), comfortable and no acute distress Other: Well-developed well-nourished looks a bit younger than stated age lying flat in bed no acute distress [facility] Head: normal to inspection, normocephalic and atraumatic Mouth: oral mucosae normal Neck Other: No neck vein distention no V waves carotid upstrokes are normal there are no bruits heard Chest Chest: normal inspection of the chest Resp Effort & Inspection: normal respiratory effort Auscultation: clear to auscultation bilaterally Cardio Rate: regular rate Rhythm: regular rhythm Heart Sounds: murmur systolic II/ Other: Heart is regular with a 2/6 systolic ejection quality murmur GI Inspection: normal to inspection Skin General skin exam: no rashes or lesions noted Neuro General: patient alert, patient awake and patient oriented x3 Extrem General: normal to inspection, full ROM and no pedal edema Other: No peripheral edema, intact distal pulses Psych Mental Status: mental status grossly normal Speech and Movement: speech and movement normal Mood: congruent mood Affect: normal affect DS: Data Vitals/I&O Vitals and I&O: Vital Signs Temperature 36.1 C L 08/23/21 11:15 Temperature Source Tympanic 08/23/21 11:15 Pulse 62 08/23/21 11:15 Pulse Rhythm Regular 08/23/21 11:49 Pulse 60 08/22/21 14:31 Respiratory Rate 18 08/23/21 11:15 Respiratory Effort Non-Labored 08/23/21 11:49 Respiratory Depth Normal 08/23/21 11:49 Respiratory Pattern Normal 08/23/21 11:49 Blood Pressure 131/71 08/23/21 11:15 Blood Pressure Mean 76 08/22/21 14:31 Blood Pressure Position Supine 08/22/21 09:41 Pulse Oximetry 96 08/23/21 11:15 Oxygen Delivery Method Room Air 08/23/21 11:15 Oxygen Flow Rate 0 08/23/21 11:15 Pain Level 0 08/23/21 11:15 Comment 08/22/21 18:36 Intake & Output 08/22/21 08/23/21 08/23/21 23:59 11:59 23:59 Intake Total 860 / 860 0 / 0 Output Total 1425 / 1425 Balance 860 / 860 -1425 / -1425 Weight 82.2 kg Intake: IV 0 / 0 Oral 860 / 860 Output: Urine 1425 / 1425 Other: Urine Color Yellow Yellow Urine Appearance Clear Clear Urine Odor Normal Voiding Methods Toilet Toilet Data Completed and Pending Labs on day of discharge: Labs from last 24 hours 08/23/21 08/22/21 08/22/21 06:27 21:50 18:13 Troponin I 50 < 50 Triglycerides 154 H Total Cholesterol 182 LDL Cholesterol, Calc 108 H HDL Cholesterol 44 TSH COVID-19 Source SARS-CoV-2 (PCR) 08/22/21 08/22/21 14:25 12:50 Troponin I Triglycerides Total Cholesterol LDL Cholesterol, Calc HDL Cholesterol TSH 2.80 COVID-19 Source Nasal/Nares SARS-CoV-2 (PCR) Negative Preliminary micro results at discharge 08/22/21 13:00 Urine Culture - Preliminary Urine - Reflex from Ua Gram Positive Leida,Mixed PFSH All Active Problems (Updated 08/22/21 @ 14:17 by Steve Webster MD) Weakness (Acute) History of coronary artery stent placement (Chronic) Hypothyroidism (Chronic) Chest pain (Acute) High risk medication use (Acute) Aortic regurgitation (Acute) Shortness of breath (Acute) Coronary artery disease (Chronic) Medical History Anxiety disorder B12 deficiency Bright red blood per rectum Chest fullness Chest pressure Chronic low back pain Depression Dyspnea on exertion Elevated blood pressure reading Fatigue H pylori ulcer History of coronary artery stent placement Hx of cardiac catheterization Hx of depression headache Hyperlipidemia Hypothyroidism Insomnia Osteopenia Psoriasis Skin lesion Subacromial bursitis Surgical History Colonoscopy - MAC (11/25/16) Social History Smoking/Tobacco Use Status: Former Tobacco Use Smoking risk assessment performed?: Yes Alcohol Intake: current Alcohol Intake frequency: a few times a week Drug use: Never Do you feel safe at home: Yes Do you feel safe in your relationship?: Yes
--- NOTE | 2021-08-23 15:16 | PDOC.CMDIS ---
- If Service Date Differs Date of service: 08/23/21 Time of Service: 15:16 LACE Index Scoring Tool - Questions: Length of Stay (in days): 1 Acuity (Admit via E.D.?): Yes E.D. Visits: 1 - Answers: Total Score: 5 Risk of Readmission: Low Risk Care Management Discharge Reason for Hospitalization: Chest Pain Discharge Plan: Discharge home via private vehicle with family. Follow up with community providers and discharge plan of care as prescribed. No new [facility] services are indicated at this time. Emani is encouraged to call PCP office on Friday for an appointment in the 2 weeks. Patient/Family Education Needs: Review discharge instructions, limitations, medications and plan to follow up with community providers. ask me three.
[2021-08-23] MEDS: PARoxetine 10 MG TAB 30 MG PO (15:41)
[2021-08-23] MEDS: Calcium 600mg/Vit D 200U TAB 1 TAB PO (15:41)
[2021-08-23] MEDS: Folic Acid 1 MG TAB PO (15:41)
[2021-08-23] MEDS: Pantoprazole 40 MG TABCR PO (15:41)
[2021-08-23] MEDS: Aspirin 81 MG CHEW PO (15:41)
== END 2021-08-23 16:56 | disposition home or self-care (01) ==
LOC: ER 14:39 → MS 14:59
PROVIDERS: Nurse Practitioner Acute Care; Admitting Provider Family Medicine; Emergency Provider Emergency Medicine; PCP Family Medicine; Visit Provider Family Medicine
DX: R06.02 Shortness of breath (principal); R00.1 Bradycardia, unspecified; I51.7 Cardiomegaly; R06.00 Dyspnea, unspecified; R53.1 Weakness; I25.10 Atherosclerotic heart disease of native coronary artery without angina pectoris; Z79.899 Other long term (current) drug therapy; Z95.5 Presence of coronary angioplasty implant and graft; R74.8 Abnormal levels of other serum enzymes; Z20.822 Contact with and (suspected) exposure to COVID-19; E03.9 Hypothyroidism, unspecified; I35.0 Nonrheumatic aortic (valve) stenosis; R79.1 Abnormal coagulation profile; F41.9 Anxiety disorder, unspecified; F32.A Depression, unspecified; E78.5 Hyperlipidemia, unspecified; R61 Generalized hyperhidrosis; Z86.16 Personal history of COVID-19
CPT/HCPCS: 36415; 71275; 78452; 80053; 80061; 87635; 93005; 93306; 99285; U0005; 71045; 81003; 81015; 83735; 83880; 84132; 84443; 84484; 85025; 85379; 87086; 93010; 93017; 99213; 99217; 99220; G0378; J3490

== ENCOUNTER → 2021-08-28 11:01 | Outpatient (BNVA) | payer MEDICARE, SELFPAY | PROVIDERS: PCP Family Medicine; Referring Provider Internal Medicine Rheumatology; Visit Provider Student in an Organized Health Care Education/Training Program | DX: M75.22 Bicipital tendinitis, left shoulder (principal); M75.52 Bursitis of left shoulder; M75.82 Other shoulder lesions, left shoulder | CPT/HCPCS: 99203; 99214 ==

== ENCOUNTER → 2021-11-06 11:18 | Outpatient (BNVA) | payer MEDICARE, SELFPAY | PROVIDERS: PCP Family Medicine; Referring Provider Family Medicine; Visit Provider Student in an Organized Health Care Education/Training Program | DX: M75.22 Bicipital tendinitis, left shoulder (principal); M75.52 Bursitis of left shoulder; M75.82 Other shoulder lesions, left shoulder; M19.012 Primary osteoarthritis, left shoulder | CPT/HCPCS: 99213 ==

== ENCOUNTER → 2021-11-29 01:26 | Outpatient (CLI) | payer MEDICARE, SELFPAY ==
--- NOTE | 2021-11-29 14:23 | DI.RAD_ITS ---
Exam(s) RF JOINT INJECTION FLUORO GUID EXAM: RF JOINT INJECTION FLUORO GUID CLINICAL HISTORY: LEFT SHOULDER PAIN,FLUORO GUIDED INJECTION,TENDONITIS, BURSITIS,M75.82,M75. TECHNIQUE: 2D and realtime digital imaging was performed. COMPARISON: No exams were available for comparison FINDINGS: Fluoroscopy was utilized by Dr. Oliveira during reported left shoulder injection. Hard copy shows injec tion the left shoulder joint. IMPRESSION: RADIATION DOSE DELIVERED: paco Hightower=0.74 mGy Total DLP
[2021-11-29] MEDS: methylPREDNISolone ACETATE 80 MG/ML VIAL IM (14:25)
[2021-11-29] MEDS: Omnipaque 300 MG/ML 10 ML BTL IJ (14:25)
[2021-11-29] MEDS: Bupivacaine 0.5% Pres-Free 10 ML VIAL 5 ML IJ (14:26)
--- NOTE | 2021-11-30 07:29 | W.PROCNOTE ---
Date of service: 11/29/21 Time of Service: 13:40 Procedure Note Date of procedure: 11/29/21 Procedure: Left Shoulder Injection Surgeon/Proceduralist/Physician: Humberto Gee Procedure Diagnosis: Left glenohumeral arthritis Procedure Indications: Emani has had persistent pain of the LEFT shoulder. Noninvasive measures have been tried. To serve as both diagnostic and therapeutic, an injection under fluoroscopy was recommended. I had discussed the risks of the procedure and the patient elected to proceed. Procedure Description: Emani was greeted in the flouroscopy room. The correct side was identified and the consent was reviewed with the patient and signed. The patient was then placed in the supine position on the fluoroscopy table. The LEFT shoulder was then prepped with Chloraprep. The anterior injection starting point was identiifed by bony landmarks and fluoroscopy. The skin and soft tissue in the tract of the injection was anesthetized with 1% Lidocaine. A spinal needle was then inserted deep into the shoulder joint at the level of the recess between the glenoid and superior humeral head. A small amount of Omnipaque solution was injected to confirm intraarticular placement. Once confirmed, the shoulder was injected with 5cc of 0.5% Bupivicaine and 80mg of Depo-Medrol. A bandaid was placed on the injection site. The patient tolerated the procedure well and noted improvement in pre-injection pain.
== END ==
PROVIDERS: PCP Family Medicine; Visit Provider Student in an Organized Health Care Education/Training Program
DX: M19.012 Primary osteoarthritis, left shoulder (principal); M75.22 Bicipital tendinitis, left shoulder; M75.52 Bursitis of left shoulder; M75.82 Other shoulder lesions, left shoulder; M25.512 Pain in left shoulder
CPT/HCPCS: 20610; 77002; J1040

== ENCOUNTER → 2021-12-07 00:05 | Outpatient (CLI) | payer MEDICARE, SELFPAY ==
--- NOTE | 2021-12-07 14:00 | DI.MAMMO_ITS ---
Exam(s) MAMMO SCREENING EXAM: MAMMO SCREENING CLINICAL HISTORY: SCREENING, Z12.31, [facility], Z00.00 TECHNIQUE: Bilateral full field digital CC and MLO mammographic images were obtained with 3D tomosyn thesis and utilizing computer aided detection (CAD). COMPARISON: Available for comparison. FINDINGS: Masses/Architectural Distortion: None seen. Microcalcifications: No suspicious pleomorphic-type are seen. Skin Thickening/Nipple Retraction: None. IMPRESSION: 1. No significant interval change with no specific features of malignancy noted. 2. Unless there is more urgent need, screening mammography is recommended, as per [employer] guidelines. BI-RADS Category 1 - Negative Breast Density - Category B - Scattered areas of fibroglandular density Breast density category C or D implies that the patient has dense breast tissue. Dense breast tissue is very common and is not abnormal but dense breast tissue can make it harder to find cancer on a ma mmogram. Also, dense breast tissue may increase their breast cancer risk. This information about the result of the mammogram report was provided to the patient to raise their awareness. Use this report when you speak with the patient about their risks for breast cancer, which includes their family hist ory. At that time, you may recommend for more screening tests (Ultrasound or MRI) as they might be us eful based on their risk. A negative radiographic report should not delay biopsy if a dominant or clinically suspicious mass is present. Up to ten percent of cancers are not identified on mammography. A negative report may reinforce clinical impression. Adenosis and dense breasts may obscure an underlying neoplasm. False positive reports average 6 to 10%. Patient will receive a letter notifying them of these results.
--- NOTE | 2021-12-07 14:30 | DI.DEXA_ITS ---
Exam(s) XR DEXA BONE DENSITY W/WO CLAY EXAM: XR DEXA BONE DENSITY W/WO CLAY CLINICAL HISTORY: POSTMENOPAUSAL, Z78.0; OSTEOPENIA, M85.80 TECHNIQUE: COMPARISON: CR XR DEXA BONE DENSITY W/WO CLAY from 12/03/2018 FINDINGS: Lateral Spine Image: Unremarkable. No compression deformities identified. Left hip: Total T-Score: -0.7. This compares to -0.6 on the prior examination. Total Z-Score: 1.2 T- and Z-scores: Within normal limits. Lumbar Spine: Total T-Score: -1.6. This compares to -1.8 on the prior examination. Total Z-Score: 1.0 T- and Z-scores: Findings are consistent with osteopenia. IMPRESSION: Osteopenia in the lumbar spine.
== END ==
PROVIDERS: PCP Family Medicine; Visit Provider Family Medicine
DX: Z78.0 Asymptomatic menopausal state (principal); Z13.820 Encounter for screening for osteoporosis; M85.88 Other specified disorders of bone density and structure, other site; Z12.31 Encounter for screening mammogram for malignant neoplasm of breast
CPT/HCPCS: 77063; 77067; 77080

== ENCOUNTER 2022-07-05 13:07 | Outpatient (REF) | payer MEDICARE, SELFPAY ==
[2022-07-05 14:52] LABS: Anion Gap 8.5 mmol/L (3-11); BUN 20 mg/dL (7-18); CO2 27.5 mmol/L (21.0-32.0); CREATININE 1.1 mg/dL (0.55-1.02); Calcium 8.9 mg/dL (8.5-10.1); Chloride 107 mmol/L (98-107); Estimated GFR 51.11 (mL/min/1.73m2); Glucose 94 mg/dL (74-106); Potassium 4.5 mmol/L (3.5-5.1); Sodium 143 mmol/L (136-145)
[2022-07-05 19:26] LABS: Hemoglobin A1C 5.7 % (<5.7)
== END 2022-07-05 13:08 | disposition home or self-care (01) ==
LOC: NCHCN 13:07
PROVIDERS: PCP Family Medicine; Visit Provider Family Medicine
DX: I10 Essential (primary) hypertension (principal); E53.8 Deficiency of other specified B group vitamins; L40.9 Psoriasis, unspecified; Z79.899 Other long term (current) drug therapy
CPT/HCPCS: 80048; 83036

== ENCOUNTER 2022-07-11 01:14 | Outpatient (CLI) | payer MEDICARE, SELFPAY ==
--- NOTE | 2022-07-11 07:45 | DI.US_ITS ---
APPROVED REPORT EXAM: Comprehensive 2D, Doppler, and color-flow Echocardiogram Patient Location: Out-Patient Health Assessment And Treatment Teacher: Tala Castaneda RDCS (AE) Indications: Aortic regurgitation, Aortic stenosis Other Information Study Quality: Adequate Conclusion Normal left ventricular wall thickness and chamber size. Ejection fraction is 60%. Wall motion is n ormal Normal right ventricular size and systolic function Both atria are normal in size Aortic valve is sclerotic and trileaflet. There is mild aortic stenosis. Peak gradient is 25, mean 15 mmHg. Calculated aortic valve area is 1.49 cm??. There is mild to moderate aortic regurgitation Dilated ascending aorta and aortic root Estimated right ventricular systolic pressure is 25 mmHg Wall motion Left Ventricle The left ventricle is normal size. The left ventricular systolic function is normal. The left ventric ular ejection fraction is within the normal range. There is normal left ventricular wall thickness. T here is normal LV segmental wall motion. There is no ventricular septal defect visualized. LVEF is 59 %. Right Ventricle The right ventricle is normal size. The right ventricular systolic function is normal. The RVSP is 25 .0mmHg. Atria The left atrium size is normal. The right atrium size is normal. The interatrial septum is intact wit h no evidence for an atrial septal defect. Aortic Valve The Aortic valve is sclerotic. Mild aortic stenosis. Highest mean aortic valve gradient is 14.9mmHg. Peak aortic valve gradient is 25.3mmHg. Calculated VY by the continuity equation is 1.49cm2. Mild t o moderate aortic regurgitation. Mitral Valve The mitral valve is normal in structure. No evidence of mitral valve stenosis. Mild mitral regurgita tion. Tricuspid Valve The tricuspid valve is normal in structure. There is no tricuspid valve stenosis. Trace tricuspid reg urgitation. Pulmonic Valve The pulmonary valve is normal in structure. There is no pulmonic valvular stenosis. Trace pulmonic re gurgitation. Great Vessels Aortic root is mildly dilated. The ascending aorta is mildly dilated. Aortic arch is normal in calib er. IVC is normal in size and collapses >50% with inspiration. Pericardium There is no pericardial effusion. 2D Dimensions IVSD d PLAX 0.98 cm F: 0.6-1.0 LV Vol A2C d MOD 90.2 mL LVPW d PLAX 0.92 cm F: 0.6 - 1.0 LV Vol A4C d MOD 105.4 mL LVID d PLAX 4.44 cm F: 3.8 - 5.2 LA vol/ BSA A2C s A-L 32.7 mL/m2 LVDs 3.05 cm F: 2.2 - 3.5 LA vol/ BSA A4C s A-L 38.3 mL/m2 Ao Root d 3.41 cm F: 2.7 - 3.3 LA Vol/ BSA Biplane s A-L 36.1 mL/m2 RA Area A4C 8.62 cm2 LA Area A4C s MOD 21.14 cm2 RA Vol/ BSA A4C s A-L 9.6 mL/m2 LA Area A2C s MOD 19.92 cm2 Ao Asc Diam d 3.84 cm F: 2.3 - 3.1 LV EF A4C MOD 58.1 % LV EF Teichholz 58.1 % LV EF A2C MOD 59.9 % LVEF (Suárez's) 58.87 % F: 54 - 74 LV EF Biplane MOD 58.9 % LV Volume 75.77 mL F: 46 - 106 SV 58.59 mL LV Volume Index 39.46 mL/m2 F: 29 - 61 SV Index 30.62 mL/m2 LV Vol Biplane MOD 99.5 mL FS 30.45 % M-Mode TAPSE 2.19 cm (M/F) >1.7 LV Diastology MV E' medial 0.090 (>0.07 m/s) E/A Ratio 0.9 LV E/e MED 8.05 (<14) MV E Vmax 0.73 (0.4-1.3 m/s) MV E' lateral 0.065 (>0.1 m/s) MV A Vmax 0.80 (0.4-1.3 m/s) LV E/e LAT 11.25 (<14) MV E/A Ratio 0.86 MV E/E' medial 8.07 MV E/E' lateral 11.27 Aortic Valve LVOT Area 3.69 cm2 AoV Area Vmax 1.49 cm2 LVOT Vmax 1.01 m/s AoV Area/ BSA (Vmax) 0.78 cm2/m2 LVOT Mean Benson. 0.70 m/s VY Mean Benson. 1.42 cm2 LVOT Peak Grad 4.1 mmHg VY Mean Benson. Index 0.74 cm2/m2 LVOT Mean Grad 2.2 mmHg AR DT 3463 msec LVOT VTI 0.270 m AR PHT 1004 msec LVOT Diam s 2.15 cm AoV Vmax 2.52 m/s Velocity Ratio 0.40 AoV Mean Benson. 1.82 m/s AoV Peak Grad 25.3 mmHg LVOT SV 99.84 mL AoV Mean Grad 14.9 mmHg AoV VTI 0.619 m AoV Area VTI 1.61 cm2 AoV Area/ BSA (VTI) 0.84 cm/m2 Mitral Valve MV DT 230 (160-240 msec) MV PHT 67 msec MV Area PHT 3.30 cm2 Pulmonary Valve PV Vmax 0.95 (0.5-1.5 m/s) RVOT Peak Gr. 3.02 mmHg PV Peak Grad 3.6 mmHg RVOT Mean Gr. 1.50 mmHg RVOT VTI 0.226 m RVOT Vmax 0.87 m/s Tricuspid Valve TR Peak Grad 22.0 mmHg TR Vmax 2.35 m/s RA Pressure 3.00 mmHg RVSP (TR) 25.0 mmHg
== END 2022-07-11 01:34 ==
PROVIDERS: PCP Family Medicine; Visit Provider Internal Medicine Cardiovascular Disease
DX: I35.1 Nonrheumatic aortic (valve) insufficiency (principal)
CPT/HCPCS: 93306

== ENCOUNTER → 2022-07-15 09:35 | Outpatient (BNVA) | payer MEDICARE, SELFPAY | PROVIDERS: PCP Family Medicine; Visit Provider Internal Medicine Cardiovascular Disease | DX: I25.10 Atherosclerotic heart disease of native coronary artery without angina pectoris (principal); I35.1 Nonrheumatic aortic (valve) insufficiency | CPT/HCPCS: 99214 ==

== ENCOUNTER 2022-07-25 02:51 | Outpatient (CLI) | payer MEDICARE, SELFPAY ==
--- NOTE | 2022-07-25 08:15 | DI.RAD_ITS ---
Exam(s) RF JOINT INJECTION FLUORO GUID EXAM: RF JOINT INJECTION FLUORO GUID CLINICAL HISTORY: L SHOULDER PAIN,FLUORO GUIDED INJECTION, BURSITIS,TENDONITIS,M75.22,M75.52 TECHNIQUE: Fluoroscopy provided. Radiologist not present. CONTRAST MATERIAL: None COMPARISON: No exams were available for comparison FINDINGS: Fluoroscopy was provided for left shoulder injection procedure Please refer to the procedure report for complete details. Cumulative Dose: Ka,r=0.059 mGy IMPRESSION: RADIATION DOSE DELIVERED:
--- NOTE | 2022-07-25 13:40 | W.PROCNOTE ---
Date of service: 07/25/22 Time of Service: 13:41 Procedure Note Procedure: Left Shoulder Injection Surgeon/Proceduralist/Physician: Humberto Gee Procedure Indications: Emani has had persistent pain of the LEFT shoulder. Noninvasive measures have been tried and she has had excellent results with previous left shoulder injection. Since the pain had returned, an injection under fluoroscopy was recommended. I had discussed the risks of the procedure and the patient elected to proceed. Procedure Description: Emani was greeted in the flouroscopy room. The correct side was identified and the consent was reviewed with the patient and signed. The patient was then placed in the supine position on the fluoroscopy table. The LEFT shoulder was then prepped with Chloraprep. The anterior injection starting point was identiifed by bony landmarks and fluoroscopy. The skin and soft tissue in the tract of the injection was anesthetized with 1% Lidocaine. A spinal needle was then inserted deep into the shoulder joint at the level of the recess between the glenoid and superior humeral head. A small amount of Omnipaque solution was injected to confirm intraarticular placement. Once confirmed, the shoulder was injected with 5cc of 0.5% Bupivicaine and 80mg of Depo-Medrol. A bandaid was placed on the injection site. The patient tolerated the procedure well and noted improvement in pre-injection pain.
[2022-07-25] MEDS: Omnipaque 300 MG/ML 10 ML BTL 5 ML IJ (13:42)
[2022-07-25] MEDS: methylPREDNISolone ACETATE 80 MG/ML VIAL IM (13:43)
[2022-07-25] MEDS: Bupivacaine 0.5% Pres-Free 10 ML VIAL 5 ML IJ (13:44)
== END 2022-07-25 03:11 ==
LOC: DI 02:52
PROVIDERS: PCP Family Medicine; Visit Provider Student in an Organized Health Care Education/Training Program
DX: M25.512 Pain in left shoulder (principal)
CPT/HCPCS: 20610; 77002; J1040

== ENCOUNTER 2022-08-08 01:36 | Outpatient (CLI) | payer MEDICARE, SELFPAY ==
[2022-08-08] MEDS: Methacholine 100 MG VIAL IH (15:07)
[2022-08-08] MEDS: Inhaler, Assist Device 1 EACH MC (15:08)
[2022-08-08] MEDS: Albuterol HFA 18 GM 200 PUFF INH IH (15:08)
--- NOTE | 2022-08-09 14:29 | W.PFT ---
Date of service: 08/08/22 Time of Service: 12:56 Pulmonary Function Test Result Indications: [facility] Interpretation Spirometry: There is no airflow limitation. There was a 17% decreased in FEV1% with administration of 16 mg/mL methacholine. Lung Volumes: Normal lung volumes Diffusion Capacity: Normal diffusion Airway Pressure: Normal airways resistance Impression Normal pulmonary function testing with a negative methacholine. Clinical Correlation therefore is recommended.
== END 2022-08-08 01:37 | disposition home or self-care (01) ==
LOC: RT 01:36
PROVIDERS: PCP Family Medicine; Visit Provider Student in an Organized Health Care Education/Training Program
DX: U09.9 Post COVID-19 condition, unspecified (principal)
CPT/HCPCS: 94060; 94070; 94726; 94729; 94010; J7674

== ENCOUNTER 2022-08-13 09:28 | Outpatient (CLI) | payer MEDICARE, SELFPAY | END 2022-08-13 09:29 | disposition home or self-care (01) | PROVIDERS: PCP Family Medicine; Visit Provider Student in an Organized Health Care Education/Training Program | DX: R06.02 Shortness of breath (principal) | CPT/HCPCS: 93246 ==

== ENCOUNTER 2022-09-10 07:33 | Outpatient (CLI) | payer MEDICARE, SELFPAY ==
--- NOTE | 2022-09-10 08:35 | CER_ITS ---
Date of service: 09/10/22 Time of Service: 08:35 Cardiac Event Recorder Referring Provider:: Kristyn Whitehead Indications:: Shortness of breath Cardiac Event Note: This is a 14-day monitoring tech ordered for shortness of breath Rhythm throughout was sinus with an average heart rate of 75. Minimum was 47, maximum 144 There were rare atrial and ventricular ectopic beats A total of 15 self-limited atrial runs occurred. The longest of these was 11 beats in duration There was no atrial fibrillation no high-grade AV block no pauses greater than 3 seconds Patient symptoms were reported which had no correlation with any dysrhythmia
== END 2022-09-10 07:34 | disposition home or self-care (01) ==
LOC: CARDOPNVT 07:33
PROVIDERS: PCP Family Medicine; Visit Provider Internal Medicine Cardiovascular Disease
DX: R06.02 Shortness of breath (principal); I49.1 Atrial premature depolarization
CPT/HCPCS: 93248

== ENCOUNTER 2022-10-01 10:27 | Outpatient (CLI) | payer MEDICARE, SELFPAY ==
--- NOTE | 2022-10-01 08:15 | DI.RAD_ITS ---
Exam(s) XR SHOULDER LT COMPLETE 2+V EXAM: XR SHOULDER LT COMPLETE 2+V CLINICAL HISTORY: LEFT SHOULDER PAIN. TECHNIQUE: 2D digital imaging was performed of the left shoulder. Two images were obtained. AP and axillary views were obtained. COMPARISON: CR XR SHOULDER LEFT (GENERIC) from 07/24/2021 FINDINGS: BONES: No acute fracture is present. No bony destructive lesion is seen. JOINTS: No dislocation present. There are marked degenerative changes seen at the glenohumeral joint characterized by joint space narrowing and osteophytes. There is a large osteophyte at the inferior aspect of the humeral head. There does appear to be some remodeling and flattening of the articular surface of the proximal humerus. Subchondral sclerosis is also noted. The acromioclavicular joint i s well maintained. SOFT TISSUE: Normal. IMPRESSION: Marked degenerative changes seen at the glenohumeral joint. DATA REPOSITORY: RADIATION DOSE DELIVERED:
== END 2022-10-01 10:28 | disposition home or self-care (01) ==
LOC: DIORS 10:27
PROVIDERS: PCP Family Medicine; Referring Provider Family Medicine; Visit Provider Student in an Organized Health Care Education/Training Program
DX: M19.012 Primary osteoarthritis, left shoulder (principal); M75.22 Bicipital tendinitis, left shoulder
CPT/HCPCS: 99214; 73030

== ENCOUNTER 2022-10-04 12:34 | Outpatient (CLI) | payer MEDICARE, SELFPAY ==
[2022-10-04 12:31] VITALS: BP 140/86; PULSE 67; RESP 20; TEMP 36.6; O2SAT 97
[2022-10-04] MEDS: methylPREDNISolone ACETATE 80 MG/ML VIAL IJ (13:06)
[2022-10-04] MEDS: Omnipaque 240 MG/ML 50 ML BTL IJ (13:07)
--- NOTE | 2022-10-04 13:10 | DI.RAD_ITS ---
Exam(s) XR PAIN CLINIC SACRIOILIAC 2V EXAM: XR PAIN CLINIC SACRIOILIAC 2V CLINICAL HISTORY: Dx: Sacroiliac Joint Dysfunction. TECHNIQUE: Fluoroscopy was provided for the referring physician for guidance with performing pain cl inic injection procedure. COMPARISON: No exams were available for comparison FINDINGS: Please see procedure note for details. Fluoro time: 44.6 seconds RADIATION DOSE DELIVERED: Ka,r=9.64 mGy
[2022-10-04 13:11] VITALS: BP 136/75; PULSE 79; RESP 17; O2SAT 98
--- NOTE | 2022-10-08 09:25 | PDOC.PAIN ---
Date of service: 10/04/22 Time of Service: 13:00 Pain Managment Procedure Note Procedure Note Procedure Note: PROCEDURE NOTE RIGHT INTRA-ARTICULAR SACROILIAC JOINT INJECTION Date of Service: October 04, 2022 Patient: Emani Delong Provider: Gigi Delvalle DO, MPH COMMENTS: I previously evaluated the patient in the office and their symptoms in relation to the sacroiliac joint pain have remained the same. Pre-operative diagnosis: Sacroiliac joint dysfunction Post-operative diagnosis: Same Pre-procedure pain: VAS= 7/10 Emani Delong has been referred to our [facility] for a Right intra-articular Sacroiliac joint injection. Emani was interviewed and the medical record reviewed. There were no medical, pharmacologic, radiographic or other structural contraindications to attempting a fluoroscopically-guided, contrast-enhanced, intra-articular Sacroiliac joint injection. The risks, benefits, and potential side effects of this procedure were reviewed with the patient. Questions and concerns were addressed. After it was clear that Emani was fully informed about the procedure, the printed consent form was signed by the patient and myself. Emani was placed in the prone position on the fluoroscopy table and an automated blood pressure cuff, 3 lead EKG, and pulse oximeter were applied. The skin entry point for approaching the Right sacroiliac joint was identified under the most advantageous fluoroscopic view and marked. Following thorough Chlorhexadine preparation of the skin and draping with sterile surgical drapes, 2 mls of 1% lidocaine was infiltrated into the skin at the entry point and the surrounding subcutaneous tissues. Next, a 3.5 22G spinal needle was placed under fluoroscopic guidance into the Right sacroiliac joint. Intra-articular placement was confirmed by a clear arthrogram resulting from the injection of 0.25ml of Omnipaque-240. Next, 1 ml of Depo- Medrol 40 mg/ml was injected intra-articularly with an initial reproduction of a significant component of the usual pain. This was followed with 1 ml of 1% Lidocaine. The needle was then removed without difficulty. (49 ml of Omnipaque-240 was wasted). Emani's vital signs were stable throughout the procedure and were as recorded in nursing records. Follow up plans and appointments were discussed with Emani. Post procedure instructions were given as documented in nursing records. Having met discharge criteria, Emani was discharged from the [facility]. COMMENTS: Post-procedure pain: VAS= 2/10. If the patient receives at least 50% improvement in pain and/or function for at least 3 months, this procedure can be repeated if needed. I personally performed this entire procedure. GIGI DELVALLE DO, MPH ABPMR-subspecialty board certification in Pain Medicine [facility] [facility]
== END 2022-10-04 12:35 | disposition home or self-care (01) ==
LOC: PC 12:34
PROVIDERS: PCP Family Medicine; Visit Provider Preventive Medicine Occupational Medicine
DX: M46.1 Sacroiliitis, not elsewhere classified (principal); M54.50 Low back pain, unspecified
CPT/HCPCS: 27096; 72200; J1040; Q9967

== ENCOUNTER → 2022-10-07 02:12 | Outpatient (CLI) | payer MEDICARE, SELFPAY ==
--- NOTE | 2022-10-07 08:00 | DI.CT_ITS ---
Exam(s) CT UPPER EXTREMITY LT WO EXAM: CT UPPER EXTREMITY LT WO CLINICAL HISTORY: SURGICAL PLANNING,tendonitis lt rot cuff,bursitis,arthritis,m19.012 TECHNIQUE: Imaging Protocol: Axial computed tomography images with coronal and sagittal reformatted images were created and reviewed. CONTRAST MATERIAL: Noncontrast- COMPARISON: CR XR SHOULDER LT COMPLETE 2+V from 10/01/2022 FINDINGS: Bones: There is no evidence of fracture or dislocation. Severe degenerative changes of the glenohumeral joint with prominent inferior periarticular spurring. Some sclerosis at the superior humeral head. Joint effusion and large amount of fluid in the subco racoid bursa. AC joint unremarkable. Soft Tissues: Normal. No significant muscle atrophy. IMPRESSION: Severe degenerative changes of the glenohumeral joint. RADIATION DOSE DELIVERED: 650.39mGy.cm Total DLP DATA REPOSITORY: All CT scans at this facility are submitted to the National Radiology Data Registry (NRDR) Dose Index Registry (DIR) with the [employer] (ACR). RADIATION OPTIMIZATION: All CT scans at this facility use at least one of these dose optimization te chniques: automated exposure control; mA and/or kV adjustment per patient size (includes targeted exa ms where dose is matched to clinical indication); or iterative reconstruction.
== END ==
PROVIDERS: PCP Family Medicine; Visit Provider Student in an Organized Health Care Education/Training Program
DX: M19.012 Primary osteoarthritis, left shoulder (principal); M75.22 Bicipital tendinitis, left shoulder
CPT/HCPCS: 73200

== ENCOUNTER 2022-10-24 17:50 | Observation (INO) | payer MEDICARE, SELFPAY ==
[2022-10-24] VITALS (24 sets, daily range): BP systolic 96–156; BP diastolic 56–109; PULSE 66–98; RESP 9–33; TEMP 36.2–37.2; O2SAT 91–98; BMI 31.4
--- NOTE | 2022-10-24 | DI.RAD_ITS ---
Exam(s) XR PORTABLE CHEST AP EXAM: XR PORTABLE CHEST AP CLINICAL HISTORY: Chest Pressure/ SOB TECHNIQUE: 2D digital imaging was performed. COMPARISON: CT CT CHEST PE CTA from 08/22/[address] UPPER EXTREMITY LT WO from 10/07/2022 CR XR SHOULDER LT COMPLETE 2+V from 10/24/2022 FINDINGS: LUNGS: Question of small left pleural effusion versus atelectasis or infiltrate.. Right lung clear. HEART: Enlarged. AORTA: Normal diameter. BONES: Left reverse shoulder prosthesis Soft tissues: Postsurgical air in the soft tissues of the left shoulder. Hiatal hernia containing air. IMPRESSION: Hiatal hernia. Question of left basilar atelectasis versus infiltrate or small effusion. DATA REPOSITORY: RADIATION DOSE DELIVERED:
--- NOTE | 2022-10-24 06:19 | W.ANESPRE ---
General Info Date of Service Date Performed: 10/24/22 Height: 5 ft 4 in Weight: 83.007 kg Body Mass Index (BMI): 31.4 Surgical Procedure: Operation Date: 10/24/22 07:40 Proposed Procedure Side Surgeon p Shoulder Reverse Total Arthroplasty, Biceps Tenodesis, any other indicated surgery Left Alexis Oliveira MD Meds Allergies and Home Medications Allergies Allergy/AdvReac Type Severity Reaction Status Date / Time Sulfa (Sulfonamide Allergy Verified 10/23/22 11:37 Antibiotics) venlafaxine HCl Allergy Verified 10/23/22 11:37 [From Effexor] foods Allergy Uncoded 10/24/22 06:26 Home Medication Medication Instructions Recorded epinephrine 0.3 mg/0.3 mL 0.3 mg IM ONCE 09/23/12 injection, auto-injector (EpiPen 2-Chong) vitamins A,C,T-djkp-cambcu 2,148 1 ea PO DAILY 09/23/12 mcg-113 mg-45 mg-17.4 mg tablet (PreserVision AREDS) aspirin 81 mg chewable tablet 81 mg PO DAILY ##30 11/17/15 calcium carbonate 600 mg-vitamin 1 ea PO DAILY 09/12/17 D3 5 mcg (200 unit) tablet (Calcium 600 + D(3)) pantoprazole 40 mg tablet,delayed 40 mg PO DAILY 09/12/17 release paroxetine HCl 30 mg tablet (Paxil) 30 mg PO DAILY 09/12/17 atorvastatin 40 mg tablet 40 mg PO DAILY 08/22/21 lisinopril 20 mg tablet 20 mg PO BID 08/22/21 nitroglycerin 0.4 mg sublingual 0.4 mg sublingual PRN #30 tabs 08/23/21 tablet clonidine HCl 0.1 mg tablet 0.1 mg PO ONCE PRN hypertensive 07/23/22 emergency cyanocobalamin (vitamin B-12) 1,000 mcg IJ .Every 3 weeks 07/23/22 1,000 mcg/mL injection solution clonazepam 0.5 mg tablet 0.5 mg PO DAILY PRN 09/26/22 gabapentin 100 mg capsule 200 mg PO QHS PRN 09/26/22 levothyroxine 75 mcg tablet 75 mcg PO DAILY 09/26/22 (Unithroid) meclizine 25 mg tablet (Dramamine 25 mg PO BID PRN 09/26/22 (meclizine)) acetaminophen 500 mg capsule 1,000 mg 10/24/22 ibuprofen 400 mg tablet 400 mg PO TID 10/24/22 naproxen 250 mg tablet 250 - 500 mg PO BID PRN Moderate 10/24/22 pain #40 tabs oxycodone 5 mg tablet 5 - 10 mg PO Q4H PRN Moderate to 10/24/22 severe pain #18 tabs Current Visit Medications: Current Medications Generic Name Dose Route Start Last Admin Trade Name Tony PRN Reason Stop Dose Admin Ringer's Solution 1,000 mls @ 30 mls/hr 10/24/22 06:00 IV 11/22/22 23:59 INFUSION DEMETRIO Cefazolin Sodium/Dextrose 2 gm in 50 mls @ 100 mls/hr 10/24/22 06:00 Ancef Duplex IVPB 11/22/22 23:59 PREOP DEMETRIO Tranexamic Acid 1,000 mg/ 60 mls @ 360 mls/hr 10/24/22 06:00 Sodium Chloride IVPB 11/23/22 05:59 PREOP DEMETRIO IV Miscellaneous Supplies 1 each 10/24/22 06:00 Iv Access IV 11/22/22 23:59 DIRECTED DEMETRIO Sodium Chloride 0 ml 10/24/22 06:00 Normal Saline Flush 10 Ml Syr IV 11/22/22 23:59 PRN PRN Sodium Chloride 0 ml 10/24/22 06:00 Normal Saline 10 Ml Vial IJ 11/22/22 23:59 DIRECTED PRN Sterile Water 0 ml 10/24/22 06:00 Water,Injection,Sterile 10 Ml Vial IJ 11/22/22 23:59 DIRECTED PRN PFSH Active Problems Active Problems: Problem Status Onset Code History of coronary artery stent placement Coronary artery disease Hypothyroidism Shortness of breath R06.02 Aortic regurgitation I35.1 High risk medication use Z79.899 Chest pain R07.9 Weakness R53.1 Arthritis of left glenohumeral joint M19.012 Biceps tendinitis of left shoulder M75.22 Bursitis of left shoulder M75.52 Tendonitis of left rotator cuff M75.82 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 Brain fog R41.89 Sacroiliac joint dysfunction of right side M53.3 Medical History Medical History Anxiety disorder B12 deficiency Bright red blood per rectum Chest fullness Chest pressure Chronic low back pain COVID Depression Dizziness Dyspnea Dyspnea on exertion Elevated blood pressure reading Fatigue GERD (gastroesophageal reflux disease) H pylori ulcer Hiatal hernia Hx of cardiac catheterization x2 stents Hx of depression headache Hyperlipidemia Hypertension Insomnia Left shoulder pain Lower back pain Muscle cramps Osteopenia Psoriasis Radicular syndrome of lower limbs Renal insufficiency Skin lesion Sleep apnea Spongiotic dermatitis Subacromial bursitis Sweating abnormality Urinary frequency Surgical History Surgical History (Updated 10/24/22 @ 06:34 by Dania Santamaria) Colonoscopy - MAC (11/25/16) H/O colonoscopy Hx of cataract removal with insertion of prosthetic lens Tobacco Smoking/Tobacco Use Status: Former Tobacco Use Alcohol Alcohol Intake: current Alcohol intake frequency: a few times a week Substance Use Substance use type: marijuana Details: Marijuana cookie Vital Signs and Lab Results Vital Signs Most Recent Vital Signs in EMR: Temp Pulse Resp BP Pulse Ox 36.2 C L 66 18 156/109 H 96 10/24/22 06:37 10/24/22 06:37 10/24/22 06:37 10/24/22 06:37 10/24/22 06:37 Lab Results Blood Type / Crossmatch: No Data to Display Complete Blood Count: No Data to Display Complete Metabolic Panel: No Data to Display Liver Function Panel: No Data to Display Coagulation Panel: No Data to Display Cardiac Panel: No Data to Display Arterial Blood Gas: No Data to Display Venous Blood Gas: No Data to Display Pancreas Panel: No Data to Display Thyroid Panel: No Data to Display Infectious Disease: No Data to Display Blood Cultures: No Data to Display Toxicology Panel: No Data to Display Imaging and Studies Imaging and Studies Study information below may be from another EMR and interpreted by another provider. Please see original notes in EMR for more complete details. EKG Summary: DATE/TIME OF SERVICE: 08/22/211810 : 4PERFORMING LOCATION: ID APPROVED REPORT Exam: Resting ECG Reason for Exam: chest pain Patient Location: I HR:78 bpm ECG Measurements Heart Rate 78 AXIS OR 179 P 57 QRSd 105 QRS 20 QT 422 T48 QTc 481 Conclusion Sinus rhythm...normal P axis, V-rate 50- 99 Borderline low voltage, extremity leads...all extremity leads <0.6mV Stress Test Summary: 08/23/21: MPI Conclusion Myocardial perfusion is normal without evidence of ischemia or prior infarction EF is calculated at 81%, normal wall motion Echocardiogram Summary: Date of Exam: 07/11/22Sex: F Admission Date: 07/11/22 : 1945 Age: 77 APPROVED REPORT EXAM: Comprehensive 2D, Doppler, and color-flow Echocardiogram Patient Location: Out-Patient Tobacco Shaker: Tala Castaneda RDCS (AE) Indications: Aortic regurgitation, Aortic stenosis Other Information Study Quality: Adequate Conclusion Normal left ventricular wall thickness and chamber size. Ejection fraction is 60%. Wall motion is normal Normal right ventricular size and systolic function Both atria are normal in size Aortic valve is sclerotic and trileaflet. There is mild aortic stenosis. Peak gradient is 25, mean 15 mmHg. Calculated aortic valve area is 1.49 cm??. There is mild to moderate aortic regurgitation Dilated ascending aorta and aortic root Estimated right ventricular systolic pressure is 25 mmHg Pulmonary Function Summary: Date of service: 08/08/22 Time of Service: 12:56 Pulmonary Function Test Result Indications: [facility] Interpretation Spirometry: There is no airflow limitation. There was a 17% decreased in FEV1% with administration of 16 mg/mL methacholine. Lung Volumes: Normal lung volumes Diffusion Capacity: Normal diffusion Airway Pressure: Normal airways resistance Impression Normal pulmonary function testing with a negative methacholine. Clinical Correlation therefore is recommended. Anesthesia Assessment and Plan Anesthesia History Personal History: No History of Anesthesia Complications Family History: No Family History of Anesthesia Complications Exercise Tolerance Exercise Tolerance: Metabolic Equivalents>4 Pertinent Negatives Pertinent Negatives: No Symptoms of GERD Cardiac & Pulmonary Exam Cardiac Exam: Normal S1/S2 Heart Sounds Pulmonary Exam: Clear Bilateral Breath Sounds Implantable Cardiac Device Does patient have a Pacemaker or an ICD?: No Airway Exam Known Difficult Airway: No Mallampati Class: 2 Mouth Opening: Normal (> 3cm) Thyromental Distance: Less than 3 cm Neck Range of Motion: Full ROM Neck Circumference: Normal Teeth Condition: Normal Dentition ASA Classification ASA Score: ASA 3 Emergency Case?: No NPO Status NPO Status: NPO Clears >2 hours, Solids >8 hours Anesthesia Plan Resuscitation Status: Full Code Anesthesia Technique: General Anesthesia Airway Planned: Endotracheal Tube Pain Management: Surgeon and patient request nerve block Monitors Used: Standard Monitors
[2022-10-24] MEDS: Lactated Ringers 1,000 ML 30 ML IV ×2 (06:45→15:35)
--- NOTE | 2022-10-24 07:03 | PDOC.DSDIS_ITS ---
Date of service: 10/24/22 Time of Service: 15:00 Discharge Plan Disposition Patient Disposition: Home Condition: Stable Discharge Details Attending Provider: Alexis Oliveira Primary Care Provider: Kristyn Whitehead V Home Meds and New Rx's Prescriptions: New naproxen 250 mg tablet 250 - 500 mg PO BID PRN (Reason: Moderate pain) Qty: 40 0RF oxycodone 5 mg tablet 5 - 10 mg PO Q4H PRN (Reason: Moderate to severe pain) Qty: 18 0RF Continued meclizine [Dramamine (meclizine)] 25 mg tablet 25 mg PO BID PRN gabapentin 100 mg capsule 200 mg PO QHS PRN clonazepam 0.5 mg tablet 0.5 mg PO DAILY PRN levothyroxine [Unithroid] 75 mcg tablet 75 mcg PO DAILY clonidine HCl 0.1 mg tablet 0.1 mg PO ONCE PRN (Reason: hypertensive emergency) epinephrine [EpiPen 2-Chong] 0.3 MG/0.3 ML auto-injector 0.3 mg IM ONCE PreserVision AREDS 1 EACH tablet 1 ea PO DAILY aspirin 81 MG tablet,chewable 81 mg PO DAILY Qty: 30 calcium carbonate-vitamin D3 [Calcium 600 + D(3)] 1 EACH tablet 1 ea PO DAILY paroxetine HCl [Paxil] 30 MG tablet 30 mg PO DAILY pantoprazole 40 MG tablet,delayed release (DR/EC) 40 mg PO DAILY cyanocobalamin (vitamin B-12) 1,000 mcg/mL solution 1,000 mcg IJ .Every 3 weeks lisinopril 20 mg tablet 20 mg PO BID atorvastatin 40 mg tablet 40 mg PO DAILY nitroglycerin 0.4 MG tablet, sublingual 0.4 mg Sublingual PRN Qty: 30 0RF acetaminophen 500 mg Capsule 1,000 mg ibuprofen 400 mg Tablet 400 mg PO TID Discharge Instructions Additional Instructions: Surgery: Left reverse total shoulder arthroplasty (constrained liner) with biceps tenodesis Activity: Do not lift anything heavier than a coffee. You should keep your arm at your side in a neutral position at all times except for gentle range of motion exercises, physical therapy, and essential activities. You should use the sling whenever you are out of the house. You may have to adjust the abduction pillow or remove it for comfort. At home it is best to remove the sling and rest the arm on a pillow at your side or support the operative side with your other hand. A physical therapy prescription will be sent electronically to start in about 3 weeks. STANDARD Reverse TSA Protocol. Imme diate Active ROM OK. Prescriptions: Resume home Aspirin 81 mg tomorrow morning Naproxen 250 mg take 1-2 every 12 hours with a meal as needed for moderate pain [Oxycodone 5 mg take 1-2 every 4-6 hours as needed for severe pain]- change if needed [Tramadol 50 mg take 1 every 8 hours as needed for severe pain] You may use kixg-iko-[id number] Tylenol (acetaminophen) as needed for mild pain. These pain medications may be taken all at once or in different combinations as needed. Also, recommend Colace (docusate) as a stool softener as surgery and pain medicine cause constipation. You may try quja-tjg-ktcvzlb diphenhydramine (Benadryl) 25-50 mg nightly as a sleep aid Dressings: Leave dressing in place until follow-up. Keep clean and dry at all times. No showers please. Follow-up: 10-[address] Oliveira You may take off the leg compression stockings this evening at home. You may also leave them on a few days longer if you have a history of leg swelling or edema. Please call the office during business hours with any questions or concerns. Let us know right away if you develop any redness, drainage, fevers, chest pain, or trouble breathing. Do not drink alcohol or drive for at least 24 hours after anesthesia. Stand Alone Forms: Anesthesia Discharge Inst., Anes.Nerve Block Instructions DS: Diagnosis Discharge Diagnosis (1) Arthritis of left glenohumeral joint: Status: Acute
--- NOTE | 2022-10-24 07:23 | W.PM.OP ---
Date of service: 10/24/22 Time of Service: 07:30 Operative Note Operative Note DATE OF PROCEDURE: 10/24/22 PRE-OP DIAGNOSIS: Left: 1. End-stage glenohumeral arthritis 2. Long head of the biceps tendinopathy POST-OP DIAGNOSIS: same PROCEDURE: Left: 1. Reverse total shoulder arthroplasty, CPT # 83074 2. Open biceps tenodesis, CPT # 01818 The registered medical assistant was medically required as this procedure involves retraction, protection of neurovascular structures, and manipulation of multiple instruments and implants at the same time, which cannot be done without a skilled registered medical assistant. SURGEON: Alexis Oliveira BREAD JOCKEY: Nicolás Greene ANESTHESIA TYPE: Local By Surgeon, General LMA/ETT and Primary Nerve Block Refer to Anesthesia Record ESTIMATED BLOOD LOSS: 50 COMPLICATIONS: None Patient was transported to: PACU Patient's condition: stable Implants: [employer] modular glenoid system baseplate 24 mm, 10 degree full wedge augment [employer] modular glenoid system central post 25 mm [employer] modular glenoid system peripheral locking screws 28 mm inferior, 24 mm superior, 16 mm posterior, 16 mm anterior [employer] modular glenoid system glenosphere 39+4 mm lateralized [employer] humeral stem 135 degrees size 7 [employer] suture cup size 39 neutral offset [employer] humeral insert size 39+6 mm constrained Indications: Please see complete medical record for details. Findings: Significant long head biceps tenosynovitis, anterior capsular and subscapularis contracture, and moderately thinned but largely intact superior rotator cuff, and majority glenohumeral cartilage loss. Procedure Description: In the operating room, general anesthesia was induced. The patient was positioned beachchair on the operating room table. All bony prominences were well-padded. Preoperative antibiotics were administered. The shoulder was prepped and draped in the usual sterile fashion for shoulder arthroplasty. The correct patient, procedure, and side of the procedure were all verified prior to incision. The deltopectoral approach was preinjected with local anesthetic containing epinephrine and taken to the anterior shoulder. Care was taken to bluntly dissect the interval between the deltoid and pectoralis major muscles and to identify the cephalic vein within its fat stripe. The the vein was smaller than usual with numerous branches, the largest most identified branch was mobilized laterally. Subdeltoid space and conjoined tendon were freed of adhesions. The long head of the biceps tendon was identified just lateral to the lesser tuberosity. The uppermost margin of the pectoralis major tendon was released from the proximal humerus. The long head of the biceps tendon was tenodesed in situ using SutureTape in a eyqqxe-uc-mzyix fashion securing it superior margin the pectoralis major tendon. The biceps tendon was amputated and followed proximally to identify the rotator interval. A subscapularis peel was performed taking care to release the entire tendon in a full-thickness fashion from superior to inferior and lateral to medial while bringing the arm gradually into external rotation. Care was taken to avoid the axillary nerve by only working on the bone inferiorly and medially. The subscapularis was tagged and traction used confirm appropriate mobilization of the subscapularis tendon after gentle blunt dissection was used to free up the space anterior and posterior to it. The subscapularis as expected fact it was significantly contracted and was tenotomized. The mid tendon allowing the stump to retract medially given the inability to retracted sufficiently to allow repair after lateralization and to allow external rotation postop. The supraspinatus was identified and debrided of partial-thickness tearing at the leading edge. Appropriate coagulation was achieved especially interiorly. The anatomic neck was cut using an oscillating saw with the humeral head bone brought back table in case there was a need for future bone grafting. The proximal humeral protection plate was used to provisionally confirm suture cup and glenosphere size. The proximal humerus was delivered from the wound and maintained in external rotation. Reamers were started appropriately posterior to the bicipital groove taking care to maintain in line approach with the humeral canal. Sequential reaming was done from size 5 up to size 7. Next, the broaches were sequentially used to open the proximal humerus starting with a size 5 and going up to size 7 and sunk to the appropriate depth while maintaining approximately 20 degrees retroversion. There was good metaphyseal fit and rotational control of the proximal humerus with this size. The empty broach was left in the canal. Attention was then turned to the glenoid and retractors were placed and a circumferential release performed using the long head of the biceps remnant to remove soft tissue about the glenoid rim. Care was taken inferiorly to work on bone only between 5 and 7:00 o'clock and bluntly elevate tissues inferiorly. The VIP guide was placed on the glenoid and used to confirm placement and trajectory of the central guidepin. The guidepin was inserted through the 10 degree augment as it had better correction and fit for this patient anatomy, and advanced just through the far cortex ensuring adequate central fixation length. Depth gauge was used to confirm length. The eccentric reamer was then used to prepare the glenoid surface. The central post drill was used preparing the socket and removed with the guidewire. The baseplate was impacted and fully compressed onto the glenoid surface. The locking guide was then used to drill and place appropriately lengthed inferior, superior, anterior, and posterior screws. There was appropriate peripheral reaming. The glenosphere was applied with the order processing manager and then impacted to engage the Clemente taper. It was then locked with appropriate countersinking of the setscrew. The glenosphere was inspected and found to have good fit, appropriate positioning, and no soft tissue or bony impingement. Attention was then turned back to the proximal humerus, which was delivered through the wound, the neutral offset guide was used to ream for the suture cup. The humeral trial cup was connected. Trialing was commenced with +3 mm liner. The shoulder was reduced and taken through range of motion. Trial components were built up to +6 mm liner to achieve good stability and appropriate tension on the deltoid and conjoined tension. The trial components were removed from the proximal humerus. The wound was copiously irrigated with normal saline. The the proximal humeral stem and suture cup were assembled and brought over the proximal humerus. A small amount of vancomycin powder was distributed in the proximal humerus. The humeral component and suture cup were impacted into place. It sat at the correct position compared to the trials. The final liner was then connected, and range of motion, stability, and tension confirmed. The shoulder was copiously irrigated with Betadine and normal saline. Vancomycin powder was distributed deeply about the shoulder and through subcutaneous tissues. The deltopectoral interval was well approximated and simply closed centrally with a 0 Vicryl figure 4 stitch.. Subcutaneous tissue was irrigated then closed using 2-0 Monocryl in a buried interrupted fashion. Skin was closed using 3-0 Monocryl in a buried subcuticular fashion. Skin glue was applied to the incision. A silver impregnated bandage was placed over the incision. The extremity was placed into a shoulder immobilizer. The patient awoke from anesthesia without complication and was taken to the recovery room in stable condition.
[2022-10-24] MEDS: ceFAZolin 2 GM/50 ML BAG IVPB (07:34)
--- NOTE | 2022-10-24 08:19 | W.ANESNERVE ---
Nerve Block Single Injection Procedure Date and Time Date Performed: 10/24/22 Procedure Start: 07:18 Location Where Procedure Performed Procedure Location: Day Surgery Unit Reason Performed: Postoperative Analgesia Requesting Provider: Alexis Oliveira Timeout Performed Timeout Performed: Yes Monitoring Used ECG, Blood Pressure, SpO2 and See EMR for corresponding vital signs Sterility Sterility: Hand Hygiene, Surgical Cap, Surgical Mask, Sterile Gloves and Chlorhexidine Sedation Given During Procedure Sedation Given (Indicate Dose Given): Versed IV Dose:: 1mg Patient Mental Status Patient Mental Status: Awake Nerve Block 1st Nerve Block: Laterality: Left Block Type: Interscalene Ultrasound Image Saved?: Yes Needle / Catheter Used: 80mm SonoPlex II Local Anesthetic Bolus (Indicate Dose Given): Lidocaine used for local infiltration of skin, Injected in 3-5ml increments after negative blood aspiration, Bupivacaine 0.5% Dose:: 10ml and Exparel Dose:: 10ml Additives (Indicate Dose Given): None Ultrasound: Sterile probe cover and gel used Nerve Stimulator: Supplement to Ultrasound use and No twitch or parasthesia noted < 0.5 mA Paresthesia: None Procedure Tolerated: No Complications and Patient tolerated well Procedure Outcome: Successful Performed By: Sunil Cha
[2022-10-24] MEDS: EPINEPHrine 30 MG/30 ML VIAL (08:20)
[2022-10-24] MEDS: Bupivacaine 0.25% Pres-Free 30 ML VIAL (08:20)
--- NOTE | 2022-10-24 11:00 | DI.RAD_ITS ---
Exam(s) XR SHOULDER LT COMPLETE 2+V EXAM: XR SHOULDER LT COMPLETE 2+V CLINICAL HISTORY: Shoulder arthritis. TECHNIQUE: 2D digital imaging was performed of the left shoulder. Two images were obtained. Y and Grashey views were obtained. COMPARISON: CR XR SHOULDER LT COMPLETE 2+V from 10/01/[address] UPPER EXTREMITY LT WO from 10/07/2022 FINDINGS: BONES: No acute fracture is present. No bony destructive lesion is seen. JOINTS: The patient is now status post left total reverse shoulder replacement. The orthopedic hardw are appears in good position. The acromioclavicular joint is unremarkable. SOFT TISSUE: Postsurgical changes are seen in the soft tissues. IMPRESSION: Status post left total reverse shoulder replacement. DATA REPOSITORY: RADIATION DOSE DELIVERED:
[2022-10-24] MEDS: ceFAZolin 1 GM/50 ML BAG IVPB ×2 (12:04→21:18)
--- NOTE | 2022-10-24 12:21 | W.ANESPOSTOP ---
Postoperative Evaluation Date, Time and Location Date Performed: 10/24/22 Time Performed: 12:21 Patient Location: PACU Vital Signs Most Recent Imported Vital Signs: Most Recent Vital Signs Temp Pulse Resp BP Pulse Ox 36.3 C L 77 9 L 96/82 L 94 10/24/22 12:10 10/24/22 12:10 10/24/22 12:10 10/24/22 12:10 10/24/22 12:10 Pain Score Most Recent Pain Score: Most Recent Pain Score Pain Level 0 10/24/22 12:10 Assessment Mental Status: Awake (Alert & Oriented to Patient Baseline) Airway and Respiratory Function: Patent airway with normal (patient baseline) respiratory exam Cardiovascular Function: Hemodynamically Stable Hydration Status: Adequately Hydrated Nausea & Vomiting: No Nausea or Vomiting Pain: Pt. Denies Any Pain Peripheral Nerve Block: Regional nerve block not resolved at time of post operative discharge
--- NOTE | 2022-10-24 16:30 | RT.EKG_ITS ---
APPROVED REPORT Exam: Resting ECG Reason for Exam: Chest Pain/SOB Patient Location: O HR:81 bpm ECG Measurements Heart Rate 81 AXIS AK 180 P 31 QRSd 95 QRS 6 QT 391 T 61 QTc 453 Conclusion Sinus rhythm...normal P axis, V-rate 60- 99 Normal Electrocardiogram
[2022-10-24 17:16] LABS: Troponin I 50 ng/L (<or=60)
[2022-10-24 17:18] LABS: ALT 27 U/L (14-59); AST 22 U/L (15-37); Albumin 3.4 g/dL (3.4-5.0); Alkaline Phosphatase 83 U/L (46-116); Anion Gap 12.4 mmol/L (3-11); BUN 21 mg/dL (7-18); Bilirubin, Total 0.4 mg/dL (0.2-1.0); CO2 23.6 mmol/L (21.0-32.0); CREATININE 1.4 mg/dL (0.55-1.02); Calcium 9.1 mg/dL (8.5-10.1); Chloride 102 mmol/L (98-107); Estimated GFR 38.27 (mL/min/1.73m2); Glucose 165 mg/dL (74-106); NT-proBNP 119 pg/mL (<300); Potassium 4.4 mmol/L (3.5-5.1); Sodium 138 mmol/L (136-145)
[2022-10-24] MEDS: Lisinopril 20 MG TAB PO (21:17)
[2022-10-24] MEDS: Acetaminophen 500 MG TAB 1000 MG PO (21:22)
--- NOTE | 2022-10-24 21:45 | PDOC.ANES ---
Date of service: 10/24/22 Time of Service: 16:40 Anesthesia Note Report Anesthesia Note: I was asked to see patient to evaluate her breathing. I find Emani awake and alert, with mild increased work of breathing with a RR around 20. She states she notices this as well feeling like her usual dyspnea on exertion but without any exertion. She states she felt weak and lightheaded/sweaty when she was out of bed to use the commode. Her SpO2 has been 92-93% on room air and 94-96% on 2LPM NC O2. When asked she also states she does not have any chest pain but does have anterior chest pressure with a strange feeling in her right neck. She does state this feels similar to her anginal pain but feels this is only due to her breathing. Her last dose of NTG was about a year ago per patient. 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 ECG appeared without any acute findings, chest x-ray consistent with expected left hemidiaphragm paralysis and labs revealed negative troponin and BNP. Given these findings and patients initial interest to try to go home, a walk test with SpO2 monitoring was performed. She did well on room air between 94-96% and HR 99, but after walking a short distance, felt weak, mild dizziness, and had to sit down which is not her normal. Discussed steps with Dr. Oliveira who will be admitting patient until appropriate for discharge.
[2022-10-25 03:10] VITALS: BP 150/86; PULSE 87; RESP 16; TEMP 36.6; O2SAT 95
[2022-10-25] MEDS: ceFAZolin 1 GM/50 ML BAG IVPB (03:47)
[2022-10-25] MEDS: traMADol 50 MG TAB PO ×2 (03:58→13:30)
[2022-10-25] MEDS: Levothyroxine 75 MCG TAB PO (05:49)
[2022-10-25] MEDS: Acetaminophen 500 MG TAB 1000 MG PO ×2 (05:52→13:31)
[2022-10-25 07:13] VITALS: BP 152/88; PULSE 75; RESP 18; TEMP 36.7; O2SAT 94
[2022-10-25] MEDS: Pantoprazole 40 MG TABCR PO (08:42)
[2022-10-25] MEDS: PARoxetine 10 MG TAB 30 MG PO (08:43)
[2022-10-25] MEDS: Lisinopril 20 MG TAB PO (08:43)
[2022-10-25] MEDS: oxyCODONE 5 MG TAB PO (09:22)
--- NOTE | 2022-10-25 10:36 | RESPIRATORY ---
Spoke with patient about sleep apnea history and patient advised she has a home unit ([facility]) but unsure of settings and DME. Patient to have bring home unit in later today if not being discharged.
--- NOTE | 2022-10-25 10:37 | DSE_ITS ---
Date of service: 10/25/22 Time of Service: 10:37 DS: Diagnosis Discharge Diagnosis (1) Arthritis of left glenohumeral joint: Status: Acute Asessment and Plan: Patient reports that she didn't sleep much last night because she had a headache and her back was hurting. She reports that this morning she began also having shoulder discomfort. She reports that she got good relief after taking oxycodone but it only lasted for a few hours. Discharge Plan Disposition Patient Disposition: Home Condition: Stable Discharge Details Reason For Visit: Shoulder Arthritis Admit Date/Time: 10/24/22 17:50 Admit Provider: Alexis Oliveira Attending Provider: Alexis Oliveira Primary Care Provider: Kristyn Whitehead V Home Meds and New Rx's Prescriptions: New oxycodone 5 mg tablet 5 mg PO Q6H PRN PRN (Reason: severe pain) Qty: 18 0RF naproxen 250 mg tablet 250 mg PO ONCE PRN (Reason: moderate to severe pain) Qty: 20 0RF Rx Instructions: take with a meal Continued meclizine [Dramamine (meclizine)] 25 mg tablet 25 mg PO BID PRN gabapentin 100 mg capsule 200 mg PO QHS PRN clonazepam 0.5 mg tablet 0.5 mg PO DAILY PRN levothyroxine [Unithroid] 75 mcg tablet 75 mcg PO DAILY clonidine HCl 0.1 mg tablet 0.1 mg PO ONCE PRN (Reason: hypertensive emergency) epinephrine [EpiPen 2-Chong] 0.3 MG/0.3 ML auto-injector 0.3 mg IM ONCE PreserVision AREDS 1 EACH tablet 1 ea PO DAILY aspirin 81 MG tablet,chewable 81 mg PO DAILY Qty: 30 calcium carbonate-vitamin D3 [Calcium 600 + D(3)] 1 EACH tablet 1 ea PO DAILY paroxetine HCl [Paxil] 30 MG tablet 30 mg PO DAILY pantoprazole 40 MG tablet,delayed release (DR/EC) 40 mg PO DAILY cyanocobalamin (vitamin B-12) 1,000 mcg/mL solution 1,000 mcg IJ .Every 3 weeks lisinopril 20 mg tablet 20 mg PO BID atorvastatin 40 mg tablet 40 mg PO DAILY nitroglycerin 0.4 MG tablet, sublingual 0.4 mg Sublingual PRN Qty: 30 0RF acetaminophen 500 mg Capsule 1,000 mg ibuprofen 400 mg Tablet 400 mg PO TID Discharge Instructions Additional Instructions: Surgery: Left reverse total shoulder arthroplasty (constrained liner) with biceps tenodesis Activity: Do not lift anything heavier than a coffee. You should keep your arm at your side in a neutral position at all times except for gentle range of motion exercises, physical therapy, and light activities. You should use the sling whenever you are out of the house. You may have to adjust the abduction pillow or remove it for comfort. At home it is best to remove the sling and rest the arm on a pillow at your side or support the operative side with your other hand. A physical therapy prescription will be sent electronically to start in about 3 weeks. STANDARD Reverse TSA Protocol. Immediate Active ROM OK. Prescriptions: Resume home Aspirin 81 mg daily Naproxen 250 mg take 1-2 every 12 hours with a meal as needed for moderate pain Oxycodone 5 mg take 1-2 every 4-6 hours as needed for severe pain You may use [id number] Tylenol (acetaminophen) as needed for mild pain. These pain medications may be taken all at once or in different combinations as needed. Also, recommend Colace (docusate) as a stool softener as surgery and pain medicine cause constipation. You may try [id number]-[id number] diphenhydramine (Benadryl) 25-50 mg nightly as a sleep aid Dressings: Leave dressing in place until follow-up. Keep clean and dry at all times. No showers please. Follow-up: 10-[address] Oliveira You may take off the leg compression stockings this evening at home. You may also leave them on a few days longer if you have a history of leg swelling or edema. Please call the office during business hours with any questions or concerns. Let us know right away if you develop any redness, drainage, fevers, chest pain, or trouble breathing. Do not drink alcohol or drive for at least 24 hours after anesthesia. Stand Alone Forms: Anesthesia Discharge Inst., Theron.Nerve Block Instructions, Nursing Discharge Form Referrals: Alexis Oliveira MD [ [facility] STAFF PHYSICIAN] - 11/06/22 9:30 am Activity:: Reverse TSA protocol Equipment/Supplies:: Sling Diet:: As Tolerated Discharge Orders Discharge Orders: Discharge Order (Routine); Ordered 10/25/22 Ordered By: Alexis Oliveira DS: Summary Time Spent with Patient providing and/or coordinating discharge services: Greater than 30 minutes Status at Discharge Functional status at discharge: independent ambulation Overall status at discharge: patient is progressing back to baseline Mental Status: mental status grossly normal Speech and Movement: speech and movement normal Mood: congruent mood Affect: normal affect Exam Narrative Exam Narrative: Patient resting sitting upright with left arm resting on pillow. Dressing on the left shoulder is clean, dry, and intact. Ecchymosis under the distal aspect of the dressing. Forms fist. Demonstrates full wrist flexion and extension. Demonstrates limited elbow flexion. Demonstrates full elbow extension. Sensation intact to light touch in the axillary nerve distribution. Psych Mental Status: mental status grossly normal Speech and Movement: speech and movement normal Mood: congruent mood Affect: normal affect DS: Data Vitals/I&O Vitals and I&O: Vital Signs Temperature 98.1 F 10/25/22 07:13 Temperature Source Tympanic 10/25/22 07:13 Pulse 75 10/25/22 07:13 Pulse Rhythm Regular 10/25/22 08:59 Respiratory Rate 18 10/25/22 07:13 Respiratory Effort Normal, Non-Labored, Short of Breath 10/25/22 08:59 Respiratory Depth Normal 10/25/22 08:59 Respiratory Pattern Normal 10/25/22 08:59 Blood Pressure 152/88 H 10/25/22 07:13 Blood Pressure Mean 105 10/24/22 17:40 Blood Pressure Position Supine 10/24/22 17:40 Pulse Oximetry 94 10/25/22 07:13 Respiratory End-tidal CO2 36 10/24/22 12:25 Oxygen Delivery Method Room Air 10/25/22 07:13 Oxygen Flow Rate 0 10/25/22 07:13 Pain Level 8 10/25/22 10:13 Comment Pt back in bed at this time. Prepared to go upstairs. 10/24/22 17:40 Intake & Output 10/24/22 10/24/22 10/25/22 11:59 23:59 11:59 Intake Total 610 / 1220 610 / 1220 436 / 436 Output Total 50 / 500 450 / 500 300 / 300 Balance 560 / 720 160 / 720 136 / 136 Weight 181 lb 10.574 oz 181 lb 10.574 oz Intake: IV 610 / 1160 550 / 1160 436 / 436 Oral 60 / 60 Output: Urine 450 / 450 300 / 300 Estimated Blood Loss 50 / 50 Other: Urine Color Yellow Yellow Urine Appearance Clear Clear Urine Odor None None Comment Stand and pivot a large void pt had at this time. up to commode. returned to bed. Emesis Description None None Voiding Methods Bedside Commode Data Completed and Pending Labs on day of discharge: Labs from last 24 hours 10/24/22 10/24/22 16:50 16:50 Sodium 138 Potassium 4.4 Chloride 102 Carbon Dioxide 23.6 Anion Gap 12.4 H BUN 21 H Creatinine 1.4 H Est GFR (CKD-EPI 2020) 38.27 Glucose 165 H Calcium 9.1 Total Bilirubin 0.4 AST 22 ALT 27 Alkaline Phosphatase 83 Troponin I 50 NT-Pro-B Natriuret Pep 119 Total Protein 7.0 Albumin 3.4 PFSH All Active Problems History of coronary artery stent placement (Chronic) Coronary artery disease (Chronic) Hypothyroidism (Chronic) Shortness of breath (Acute) Aortic regurgitation (Acute) High risk medication use (Acute) Chest pain (Acute) Weakness (Acute) Arthritis of left glenohumeral joint (Acute) Biceps tendinitis of left shoulder (Acute) Bursitis of left shoulder (Acute) Tendonitis of left rotator cuff (Acute) Post-acute sequelae of COVID-19 (PASC) (Acute) Brain fog (Acute) Sacroiliac joint dysfunction of right side (Acute) Medical History Anxiety disorder B12 deficiency Bright red blood per rectum Chest fullness Chest pressure Chronic low back pain COVID Depression Dizziness Dyspnea Dyspnea on exertion Elevated blood pressure reading Fatigue GERD (gastroesophageal reflux disease) H pylori ulcer Hiatal hernia Hx of cardiac catheterization x2 stents Hx of depression headache Hyperlipidemia Hypertension Insomnia Left shoulder pain Lower back pain Muscle cramps Osteopenia Psoriasis Radicular syndrome of lower limbs Renal insufficiency Skin lesion Sleep apnea Spongiotic dermatitis Subacromial bursitis Sweating abnormality Urinary frequency Surgical History (Updated 10/24/22 @ 06:34 by Dania Santamaria) Colonoscopy - MAC (11/25/16) H/O colonoscopy Hx of cataract removal with insertion of prosthetic lens Social History Smoking/Tobacco Use Status: Former Tobacco Use tobacco type: cigarettes Quit Date: 02/24/87 Smoking risk assessment performed?: Yes Alcohol Intake: current Alcohol Intake frequency: a few times a week Alcohol type: beer, wine and hard liquor Drug use: Occasionally Substance use type: marijuana Details: Marijuana cookie daily at bedtime: t-2. Alcohol: t-1, one drink Housing: house Education Level: vocational ([employer]) Current gender identity: female Do you feel safe at home: Yes Do you feel safe in your relationship?: Yes Time Spent with Patient Time Spent with Patient: <45 minutes Time was spent: obtaining and/or reviewing separately otained hiistory, ordering medications,tests, procedures, referring, communicating with other health residential care officer and counseling the patient
[2022-10-25 15:22] VITALS: BP 130/86; PULSE 74; RESP 18; TEMP 36; O2SAT 94
== END 2022-10-25 16:23 | disposition home or self-care (01) ==
LOC: MS 18:51
PROVIDERS: Nurse Anesthetist, Certified Registered; Admitting Provider Student in an Organized Health Care Education/Training Program; PCP Family Medicine; Visit Provider Student in an Organized Health Care Education/Training Program
PROC: (CPT 23472; principal; 2022-10-24 07:30)
DX: M19.012 Primary osteoarthritis, left shoulder (principal); M75.22 Bicipital tendinitis, left shoulder; Z95.5 Presence of coronary angioplasty implant and graft; I25.10 Atherosclerotic heart disease of native coronary artery without angina pectoris; E03.9 Hypothyroidism, unspecified; I35.0 Nonrheumatic aortic (valve) stenosis; R53.1 Weakness; M75.52 Bursitis of left shoulder; U09.9 Post COVID-19 condition, unspecified; R41.89 Other symptoms and signs involving cognitive functions and awareness; M53.3 Sacrococcygeal disorders, not elsewhere classified; F41.9 Anxiety disorder, unspecified; E53.8 Deficiency of other specified B group vitamins; G89.29 Other chronic pain; M54.50 Low back pain, unspecified; K21.9 Gastro-esophageal reflux disease without esophagitis; K44.9 Diaphragmatic hernia without obstruction or gangrene; E78.5 Hyperlipidemia, unspecified; I10 Essential (primary) hypertension; G47.00 Insomnia, unspecified; L40.9 Psoriasis, unspecified; M85.80 Other specified disorders of bone density and structure, unspecified site
CPT/HCPCS: 23472; 36415; 76942; 80053; 71045; 73030; 83880; 84484; 93005; 93010; C1781; G0378; J0690; J1100; J1885; J2250; J2371; J2405; J2704

== ENCOUNTER 2022-11-06 09:51 | Outpatient (CLI) | payer MEDICARE, SELFPAY ==
--- NOTE | 2022-11-06 09:30 | DI.RAD_ITS ---
Exam(s) XR SHOULDER LT COMPLETE 2+V EXAM: XR SHOULDER LT COMPLETE 2+V CLINICAL HISTORY: left shoulder f/u. TECHNIQUE: 2D digital imaging was performed. COMPARISON: CR XR SHOULDER LT COMPLETE 2+V from 10/24/2022 FINDINGS: 3 views Stable position alignment of the components of the reverse prosthesis. No fracture nor loosening latisha dent. IMPRESSION: Satisfactory stable appearance. DATA REPOSITORY: RADIATION DOSE DELIVERED:
== END 2022-11-06 09:52 | disposition home or self-care (01) ==
LOC: DIORS 09:51
PROVIDERS: PCP Family Medicine; Referring Provider Family Medicine; Visit Provider Student in an Organized Health Care Education/Training Program
DX: Z47.1 Aftercare following joint replacement surgery; Z96.612 Presence of left artificial shoulder joint
CPT/HCPCS: 73030

== ENCOUNTER 2022-11-15 15:12 | Outpatient (REF) | payer MEDICARE, SELFPAY ==
[2022-11-15 19:16] LABS: ALT 47 U/L (14-59); AST 30 U/L (15-37); Albumin 3.7 g/dL (3.4-5.0); Alkaline Phosphatase 121 U/L (46-116); Anion Gap 12.5 mmol/L (3-11); BUN 24 mg/dL (7-18); Bilirubin, Total 0.5 mg/dL (0.2-1.0); CO2 21.5 mmol/L (21.0-32.0); Calcium 9.7 mg/dL (8.5-10.1); Chloride 104 mmol/L (98-107); Estimated GFR 57.31 (mL/min/1.73m2); Glucose 89 mg/dL (74-106); Potassium 4.7 mmol/L (3.5-5.1); Sodium 138 mmol/L (136-145); TSH (W/Ref FT4) 1.46 uIU/mL (0.36-3.74); Total Protein 7.6 g/dL (6.4-8.2)
== END 2022-11-15 15:13 | disposition home or self-care (01) ==
LOC: NCHCN 15:12
PROVIDERS: PCP Family Medicine; Visit Provider Family Medicine
DX: I10 Essential (primary) hypertension (principal); E03.9 Hypothyroidism, unspecified
CPT/HCPCS: 80053; 84443

== ENCOUNTER 2022-12-11 09:44 | Outpatient (CLI) | payer MEDICARE, SELFPAY ==
--- NOTE | 2022-12-11 09:30 | DI.RAD_ITS ---
Exam(s) XR SHOULDER LT COMPLETE 2+V EXAM: XR SHOULDER LT COMPLETE 2+V CLINICAL HISTORY: F/U LEFT RTSA. TECHNIQUE: 2D digital imaging was performed. Two images were obtained. Grashey and Y views were obt ained. COMPARISON: CR XR SHOULDER LT COMPLETE 2+V from 11/06/2022 FINDINGS: BONES: There are stable post operative changes of a left total reverse shoulder replacement present. No fracture or dislocation. JOINTS: The orthopedic hardware is in good position. No evidence of hardware loosening. SOFT TISSUE: The visualized lungs are clear. IMPRESSION: Stable postoperative changes. DATA REPOSITORY: RADIATION DOSE DELIVERED:
== END 2022-12-11 09:45 | disposition home or self-care (01) ==
LOC: DIORS 09:44
PROVIDERS: PCP Family Medicine; Referring Provider Family Medicine; Visit Provider Student in an Organized Health Care Education/Training Program
DX: Z96.612 Presence of left artificial shoulder joint (principal); Z47.1 Aftercare following joint replacement surgery
CPT/HCPCS: 73030

== ENCOUNTER → 2023-07-08 00:55 | Outpatient (CLI) | payer MEDICARE, SELFPAY ==
--- NOTE | 2023-07-08 07:30 | DI.US_ITS ---
APPROVED REPORT EXAM: Comprehensive 2D, Doppler, and color-flow Echocardiogram Patient Location: Out-Patient Varnish Maker: Tala Castaneda RDCS (AE) Indications: Check /AI, SOB, Other Information Study Quality: Adequate Conclusion Normal left ventricular wall thickness and chamber size. Ejection fraction biplane is 59%. Visually EF is 65% or greater Normal right ventricular size and function Both atria are normal in size Aortic valve is trileaflet and sclerotic. There is mild aortic stenosis. Peak gradient is 28, mean 16 mmHg. There is mild to moderate aortic regurgitation Ascending aorta measures 3.48 cm Wall motion Left Ventricle The left ventricle is normal size. The left ventricular systolic function is normal. The left ventric ular ejection fraction is within the normal range. There is normal left ventricular wall thickness. T here is normal LV segmental wall motion. There is no ventricular septal defect visualized. LVEF is 59 %. Right Ventricle The right ventricle is normal size. The right ventricular systolic function is normal. Atria The left atrium size is normal. The right atrium size is normal. The interatrial septum is intact wit h no evidence for an atrial septal defect. Aortic Valve Aortic valve is calcified. Aortic valve is trileaflet. Mild aortic stenosis. Peak aortic valve gradie nt is 28.54mmHg. Highest mean aortic valve gradient is16.5_mmHg. Calculated VY by the continuity equ ation is 1.5cm2. Mild to moderate aortic regurgitation. Mitral Valve The mitral valve is normal in structure. No evidence of mitral valve stenosis. Trace mitral regurgita tion. Tricuspid Valve The tricuspid valve is normal in structure. There is no tricuspid valve stenosis. Trace tricuspid reg urgitation. Unable to assess PA pressure. Pulmonic Valve The pulmonary valve is normal in structure. There is no pulmonic valvular stenosis. Trace pulmonic re gurgitation. Great Vessels The aortic root is normal in size. The ascending aorta is mildly dilated. Aortic arch is normal in ca liber. IVC is normal in size and collapses >50% with inspiration. Pericardium There is no pericardial effusion. 2D Dimensions IVSD d PLAX 0.88 cm F: 0.6-1.0 Ao Root d 3.17 cm F: 2.7 - 3.3 LVPW d PLAX 0.87 cm F: 0.6 - 1.0 Ao Asc Diam d 3.48 cm F: 2.3 - 3.1 LVID d PLAX 4.42 cm F: 3.8 - 5.2 LVDs 3.02 cm F: 2.2 - 3.5 LV EF Teichholz 60.0 % FS 31.79 % LV EDV (Teich) 88.7 mL LV ESV (Teich) 35.4 mL M-Mode TAPSE 2.06 cm (M/F) >1.7 Auto EF LV EDV A4C 93.0 mL LV EDV A2C 84.7 mL LV EDV BP 90.2 mL LV ESV A4C 38.1 mL LV ESV A2C 35.1 mL LV ESV BP 36.8 mL LVEF(%) A4C 59.0 % LVEF(%) A2C 58.6 % LVEF(%) BP 59.2 % LV SV A4C 54.9 ml LV SV A2C 49.6 ml LV SV BP 53.4 ml LV CO A4C 3.1 L/min LV CO A2C 3.1 L/min LV CO BP 3.1 L/min HR A4C 55.82 BPM HR A2C 63.47 BPM LV EDV Index (BP) LA Volume LA Length A4C 5.3 cm LA Length A2C 5.6 cm LA Area A4C s 17.07 cm2 LA Area A2C s 18.40 cm2 LA Vol A4C A-L 46.87 mL LA Vol A2C A-L 51.60 mL LA Vol Biplane A-L 50.5 mL LA Vol/BSA A4C A-L LA Vol/BSA A2C A-L LA Vol/BSA BP A-L 26.5 mL/m2 LA Vol A4C MOD 43.7 mL LA Vol A2C MOD 48.8 mL LA Vol BP MOD 47.4 mL RA Volume RA Area A4C 9.0 cm2 RA ESV A4C (A-L) 18.2mL RA Vol/BSA A4C A-L RA Length A4C 3.8 cm RA ESV A4C (MOD) 16.9mL LV Diastology MV E' medial 0.056 (>0.07 m/s) MV E Vmax 0.83 (0.4-1.3 m/s) MV E/E' MED 14.81 (<14) MV A Vmax 1.10 (0.4-1.3 m/s) MV E' lateral 0.062 (>0.1 m/s) E/A Ratio 0.8 MV E/E' LAT 13.52 (<14) MV E' Average 0.059 m/s MV E/E'(average) 14.14 Aortic Valve AoV Vmax 2.66 m/s LVOT Vmax 1.20 m/s AoV Peak Grad 65.5 mmHg LVOT Peak Grad 5.7 mmHg AoV Area (Vmax) 1.46 cm2 LVOT VTI 0.264 m AoV VTI 0.587 m LVOT Mean Grad 3.3 mmHg AoV Mean Benson. 1.93 m/s LVOT SV 85.66 mL AoV Mean Grad 16.5 mmHg LVOT Diam s 2.00 cm AoV Area (VTI) 1.46 cm2 AV Regurg Peak Gr. 102.70 mmHg Velocity Ratio 0.45 AR Decel Mchenry 2.3m/sec2 AR DT 2182 msec AR PHT 633 msec AR Vmax 5.07 m/s Mitral Valve MV DT 370 (160-240 msec) MV Vmax TIPS 1.10 m/s MV Mean Grad 2.1 (<2mmHg) MV VTI 0.415 m Pulmonary Valve PV Vmax 1.19 (0.5-1.5 m/s) RVOT Vmax 1.07 m/s PV Peak Grad 5.7 mmHg RVOT Peak Gr. 4.6 mmHg PV Mean Benson 0.98 m/s RVOT VTI 0.211 m PV Mean Grad 4.0 mmHg RVOT Mean Gr. 2.7 mmHg Tricuspid Valve TV S' 0.14 m/s
== END ==
PROVIDERS: PCP Family Medicine; Visit Provider Internal Medicine Cardiovascular Disease
DX: R06.02 Shortness of breath (principal); I35.1 Nonrheumatic aortic (valve) insufficiency; I37.1 Nonrheumatic pulmonary valve insufficiency; I36.1 Nonrheumatic tricuspid (valve) insufficiency; I34.0 Nonrheumatic mitral (valve) insufficiency
CPT/HCPCS: 93306

== ENCOUNTER 2023-07-14 09:48 | Outpatient (CLI) | payer MEDICARE, SELFPAY ==
--- NOTE | 2023-07-14 10:00 | RT.EKG_ITS ---
APPROVED REPORT Exam: Resting ECG Reason for Exam: hx CAD, sudden dizziness/fuzziness, SOB Patient Location: O HR:69 bpm ECG Measurements Heart Rate 69 AXIS MT 177 P 75 QRSd 90 QRS 69 QT 403 T 73 QTc 432 Conclusion Sinus rhythm...normal P axis, V-rate 50- 99 Low voltage, extremity leads...all extremity leads <0.5mV Otherwise normal ECG
== END 2023-07-14 09:49 | disposition home or self-care (01) ==
LOC: DI.CARD 10:02
PROVIDERS: PCP Family Medicine; Visit Provider Internal Medicine Cardiovascular Disease
DX: R53.1 Weakness (principal)
CPT/HCPCS: 93010

== ENCOUNTER 2023-07-14 10:25 | Emergency (ER) | payer MEDICARE, SELFPAY ==
[2023-07-14 10:33] VITALS: BP 120/62; PULSE 65; RESP 15; TEMP 36.4; O2SAT 96
--- NOTE | 2023-07-14 10:41 | W.ED.GENAD ---
Discharge Plan Discharge Details Chief Complaint: Dizzy/Sync Primary Care Provider: Kristyn Whitehead V ED Provider: Christopher Drew Home Meds and New Rx's Prescriptions: No Action meclizine [Dramamine (meclizine)] 25 mg tablet 25 mg PO BID PRN gabapentin 100 mg capsule 200 mg PO QHS PRN clonazepam 0.5 mg tablet 0.5 mg PO DAILY PRN levothyroxine [Unithroid] 75 mcg tablet 75 mcg PO DAILY clonidine HCl 0.1 mg tablet 0.1 mg PO ONCE PRN (Reason: hypertensive emergency) cholecalciferol (vitamin D3) 10 mcg (400 unit) capsule 10 mcg PO DAILY epinephrine [EpiPen 2-Chong] 0.3 MG/0.3 ML auto-injector 0.3 mg IM ONCE PreserVision AREDS 1 EACH tablet 1 ea PO DAILY aspirin 81 MG tablet,chewable 81 mg PO DAILY Qty: 30 calcium carbonate-vitamin D3 [Calcium 600 + D(3)] 1 EACH tablet 1 ea PO DAILY paroxetine HCl [Paxil] 30 MG tablet 30 mg PO DAILY pantoprazole 40 MG tablet,delayed release (DR/EC) 40 mg PO DAILY cyanocobalamin (vitamin B-12) 1,000 mcg/mL solution 1,000 mcg IJ .Every 3 weeks lisinopril 20 mg tablet 20 mg PO BID atorvastatin 40 mg tablet 40 mg PO DAILY nitroglycerin 0.4 MG tablet, sublingual 0.4 mg Sublingual PRN Qty: 30 0RF acetaminophen 500 mg Capsule 1,000 mg PO ibuprofen 400 mg Tablet 400 mg PO TID HPI General Date/Time Provider Initiated Documentation: 07/14/23 10:41. HPI Narrative: 78 year-old female presents to ED today by POV/ambulating with a chief complaint of sent by Cardiology from outpatient visit for palpitations, chest pressure, dizziness, diaphoresis with normal EKG at Cardiology office upstairs with onset this morning on arriving to the hospital. Quality described as feels like she may faint, sweating, some chest pressure/palpitations, and significant shortness of breath, no radiation to syncope, visual changes, slurred speech, confusion, unilateral weakness, cough, fever, sore throat, neck pain. Severity is described as moderate. Palliating factors include nothing specific. Provoking factors include nothing specific. Events leading up to the incident/Associated Symptoms: Patient has a history of two stents placed, denies known ND. Patient not anticoagulated. Related Data Home Medications Medication Instructions Recorded Confirmed epinephrine 0.3 mg/0.3 mL 0.3 mg IM ONCE 09/23/12 07/14/23 injection, auto-injector (EpiPen 2-Chong) vitamins A,C,K-jjhf-zsktbp 2,148 1 ea PO DAILY 09/23/12 07/14/23 mcg-113 mg-45 mg-17.4 mg tablet (PreserVision AREDS) aspirin 81 mg chewable tablet 81 mg PO DAILY ##30 11/17/15 07/14/23 calcium carbonate 600 mg-vitamin 1 ea PO DAILY 09/12/17 07/14/23 D3 5 mcg (200 unit) tablet (Calcium 600 + D(3)) pantoprazole 40 mg tablet,delayed 40 mg PO DAILY 09/12/17 07/14/23 release paroxetine HCl 30 mg tablet (Paxil) 30 mg PO DAILY 09/12/17 07/14/23 atorvastatin 40 mg tablet 40 mg PO DAILY 08/22/21 07/14/23 lisinopril 20 mg tablet 20 mg PO BID 08/22/21 07/14/23 nitroglycerin 0.4 mg sublingual 0.4 mg sublingual PRN #30 tabs 08/23/21 07/14/23 tablet clonidine HCl 0.1 mg tablet 0.1 mg PO ONCE PRN hypertensive 07/23/22 07/14/23 emergency cyanocobalamin (vitamin B-12) 1,000 mcg IJ .Every 3 weeks 07/23/22 07/14/23 1,000 mcg/mL injection solution clonazepam 0.5 mg tablet 0.5 mg PO DAILY PRN 09/26/22 07/14/23 gabapentin 100 mg capsule 200 mg PO QHS PRN 09/26/22 07/14/23 levothyroxine 75 mcg tablet 75 mcg PO DAILY 09/26/22 07/14/23 (Unithroid) meclizine 25 mg tablet (Dramamine 25 mg PO BID PRN 09/26/22 07/14/23 (meclizine)) acetaminophen 500 mg capsule 1,000 mg PO 10/24/22 07/14/23 ibuprofen 400 mg tablet 400 mg PO TID 10/24/22 07/14/23 cholecalciferol (vitamin D3) 10 10 mcg PO DAILY 11/06/22 07/14/23 mcg (400 unit) capsule Previous Rx's Medication Instructions Recorded nitroglycerin 0.4 mg sublingual 0.4 mg sublingual PRN #30 tabs 08/23/21 tablet Allergies Allergy/AdvReac Type Severity Reaction Status Date / Time broccoli Allergy Severe Verified 12/11/22 09:31 cauliflower Allergy Severe Verified 12/11/22 09:31 mustard Allergy Severe Verified 12/11/22 09:31 peanut Allergy Severe Verified 12/11/22 09:31 soy Allergy Severe Verified 12/11/22 09:31 tree nut Allergy Severe Verified 12/11/22 09:31 legumes Allergy Unverified 12/11/22 09:31 lettuce Allergy Unverified 12/11/22 09:31 Sulfa (Sulfonamide Allergy Verified 12/11/22 09:31 Antibiotics) tomato Allergy Unverified 12/11/22 09:31 venlafaxine HCl Allergy Verified 12/11/22 09:31 [From Effexor] grapes Allergy Severe Uncoded 12/11/22 09:31 exercise induce anaphylaxis AdvReac Uncoded 12/11/22 09:31 General Stated Complaint: Dizzy/Sync KARLA: 3 Review of Systems All systems reviewed & are unremarkable except as noted in HPI and below Exam Narrative Exam Narrative: GENERAL APPEARANCE: Well-nourished, non-toxic, awake and alert, atraumatic, no acute distress. SKIN: Warm, pink, dry, intact, without rashes/lesions/ulcerations. HEAD: Normocephalic, atraumatic, normal hair distribution for gender/age. EYES: Pupils PERRLA, EOMs intact without nystagmus, normal conjunctiva, no exudates on lids/lashes. ENT: Nares patent, no circumoral cyanosis, no facial swelling NECK: Supple, trachea midline, painless cervical ROM. LUNGS/CHEST: Lungs CTA bilaterally- no rhonchi/rales/wheezes diffusely, non-labored respirations, normal A/P diameter, symmetrical expansion, no chest wall deformity HEART (CV/PV): Regular rate and rhythm with murmur 1/6 best heard at LSB, no peripheral edema, no JVD. ABDOMEN: Soft, non-distended, no guarding, no tenderness. MSK: Normal ROM, no swelling/deformity to bilateral UEs or LEs, moving all extremities without weakness, no cyanosis, spine midline without tenderness, normal curvature. NEURO: Mental Status AAOx4 - alert to person, place, time, events No facial droop, no forehead involvement. Motor: No focal weakness - strength 5/5 in bilateral UEs and LEs, proximal and distal, symmetric. Sensory: sensation intact to light touch globally. Gait normal: patient ambulated without ataxia into ED room. PSYCH: euthymic, cooperative, pleasant, appropriate speech Course Vital Signs Vital signs: Vital Signs Temperature 36.4 C 07/14/23 10:33 Pulse 65 07/14/23 10:33 Respiratory Rate 15 07/14/23 10:33 Blood Pressure 120/62 07/14/23 10:33 Pulse Oximetry 96 07/14/23 10:33 Temperature 36.4 C 07/14/23 10:33 Temperature Source Oral 07/14/23 10:33 Pulse 65 07/14/23 10:33 Respiratory Rate 15 07/14/23 10:33 Blood Pressure 120/62 07/14/23 10:33 Blood Pressure Position Supine 07/14/23 10:33 Pulse Oximetry 96 07/14/23 10:33 Oxygen Delivery Method Room Air 07/14/23 10:33 Oxygen Flow Rate 0 07/14/23 10:33 Pain Level 0 07/14/23 10:33 Medical Decision Making This dictation utilizes [id number] dictation software and may contain unedited grammatical errors. 78 y/o F presents to ED today with a chief complaint of dizziness, shortness of breath, chest pressure/palpitations, since this morning. Patient was at an outpatient f/u from ECHOcardiogram at Cardiology upstairs, had normal EKG in clinic, sent down for dizziness. Patient has history of two stents placed, denies ND history, denies recent fevers/cough, denies numbness/tingling/weakness, no confusion or speech changes. Patients' medical history: Hypertension, sweating abnormality, renal insufficiency, rectal bleeding, history of gastric ulcer, hyperlipidemi, aortic regurgitation. Family and social history: [ ]. Pertinent exam findings / vital signs include lungs CTA, benign cardiac exam, neuro intact, benign abdomen. Differential / pathologies of concern include ACS, Dizziness, Dehydration, unlikely neuro pathology. Diagnostic studies of: -CBC, CMP, lactate, lipase, magnesium, troponin, BNP, D-dimer. Reviewed XR from Cardiology office visit, Dr. Merritt already confirmed no ischemic findings. -CBC shows no leukocytosis, no anemia -CMP shows chronic mild LOPEZ SCr 1.2, otherwise benign -Lipase WNL -Lactate neg -Magnesium WNL -D-dimer age adjusted negative, YEARS negative -BNP benign -Initial troponin 53 > small rise to 57, will repeat, if further rise likely admission -CT Head wo Contrast shows no acute pathology -CXR shows no acute pathology Interventions of: -500mL IV bolus, consulted with Dr. Merritt, she will follow-up in the short-term outpatient. ED Course/Assessment/Plan: 78-year-old female presented to outpatient cardiology office for follow-up on echocardiogram and became profoundly dizzy. Was sent over by rough carpenter after unremarkable EKG in the outpatient setting there. The patient reports shortness of breath and dizziness as well as sweating but has a chronic sweating disorder. She has history of 2 stents placed. D-dimer is negative and I am not concerned for PE at this time, there is no evidence for infection, CT head is unremarkable, chest x-ray is unremarkable. Patient's dizziness resolved here in the department, she received 500 mL fluid bolus. She did have a small bump in her troponin from initial 53 up to 57 warranting further repeat due to the patient's history and risk factors. Patient was signed out to oncoming Dr. Christopher Drew at shift change with pending repeat troponin, likely discharge if stable, likely admission if any uptrend. HEART Score: 4 - discussed with Dr. Merritt, she has low suspicion for ACS- likely anxiety, but with small bump in troponin I will repeat the test, admit for further rise, otherwise outpatient f/u. Findings not consistent with STEMI, PE, Neurologic Abnormality. Disposition of Dizziness. Patient verbalized understanding of the plan and return to ED criteria and engaged in shared decision making. Medical Records Medical records reviewed: Yes I reviewed the patient's medical records. Imaging Data Radiologic Study: Attestation: I personally reviewed and interpreted this imaging study as follows: Imaging: CT Scan Radiologist's impression: EXAM: CT HEAD WO CLINICAL HISTORY: dizziness. TECHNIQUE: Imaging Protocol: Axial computed tomography images with coronal and sagittal reformatted images were created and reviewed COMPARISON: CR XR CHEST 2V PA LATERAL from 07/14/2023 FINDINGS: There are no skull fractures. There is no fluid in the visualized paranasal sinuses. There is no evidence of intracranial hemorrhage, mass effect, or shift of midline structures. There are no extra-axial fluid collections. The ventricles are not enlarged or shifted and there is no blood within the ventricular system nor within the basal cisterns. IMPRESSION: No acute intracranial findings on this noninfused CT scan of the brain. Radiologic Study #2: Attestation: I personally reviewed and interpreted this imaging study as follows: Imaging: X-Ray Radiologist's impression: EXAM: XR CHEST 2V PA LATERAL CLINICAL HISTORY: dizziness. TECHNIQUE: 2D digital imaging was performed. COMPARISON: CR XR PORTABLE CHEST AP from 10/24/2022 FINDINGS: 2 views: Heart size is normal. The mediastinum is not widened. Lungs are clear. No infiltrates nor pleural effusions. Left shoulder reverse prosthesis again noted. IMPRESSION: No acute pulmonary findings.Significant improvement in the appearance of the lung bases when compared to 10/24/2022. Lab Data Lab results reviewed: Yes I reviewed the patient's lab results. Labs: Laboratory Tests Range/Units 07/14/23 07/14/23 11:15 13:52 WBC (4.4-10.8) 10^3/uL 5.26 RBC (3.93-5.22) 10^6/uL 4.25 Hgb (11.2-15.7) g/dL 13.8 Hct (36.0-46.0) % 42.1 MCV (80-95) fL 99 H MCH (27.0-33.0) pg 32.5 MCHC (32.0-36.0) % 32.8 RDW (11.7-14.6) % 13.3 Plt Count (130-400) 10^3/uL 260 MPV (8.0-11.0) fL 8.8 Immature Gran % % 0.2 Neutrophils % % 52.6 Lymphocytes % % 33.5 Monocytes % % 8.2 Eosinophils % % 4.9 Basophils % % 0.6 Nucleated RBC % (0.0-0.3) % 0.0 Absolute Neutrophils (1.2-6.7) 10^3/uL 2.77 Absolute Lymphocytes (1.2-3.4) 10^3/uL 1.76 Absolute Monocytes (0.1-0.8) 10^3/uL 0.43 Absolute Eosinophils (0.0-0.7) 10^3/uL 0.26 Absolute Basophils (0.0-0.2) 10^3/uL 0.03 D-Dimer (<500) ng/mlFEU 448 VBG Lactate (0.6-1.4) mmol/L 1.4 Sodium (136-145) mmol/L 140 Potassium (3.5-5.1) mmol/L 4.3 Chloride (98-107) mmol/L 105 Carbon Dioxide (21.0-32.0) mmol/L 27.7 Anion Gap (3-11) mmol/L 7.3 BUN (7-18) mg/dL 26 H Creatinine (0.55-1.02) mg/dL 1.2 H Est GFR (CKD-EPI 2020) (mL/min/1.73m2) 45.76 Glucose (74-106) mg/dL 91 Calcium (8.5-10.1) mg/dL 8.8 Magnesium (1.8-2.4) mg/dL 2.1 Total Bilirubin (0.2-1.0) mg/dL 0.7 AST (15-37) U/L 24 ALT (14-59) U/L 28 Alkaline Phosphatase (46-116) U/L 87 Troponin I (< or =60) ng/L 53 57 NT-Pro-B Natriuret Pep (<300) pg/mL 34 Total Protein (6.4-8.2) g/dL 6.9 Albumin (3.4-5.0) g/dL 3.6 Lipase (16-77) U/L 36 Quality:[facility] Health Related Social Needs: No Data to Display PFSH All Active Problems (Updated 07/14/23 @ 10:27 by Felicia Merritt MD) Status post reverse total arthroplasty of left shoulder (Acute) History of coronary artery stent placement (Chronic) Coronary artery disease (Chronic) Hypothyroidism (Chronic) Shortness of breath (Acute) Aortic regurgitation (Acute) High risk medication use (Acute) Chest pain (Acute) Weakness (Acute) Arthritis of left glenohumeral joint (Acute) Bursitis of left shoulder (Acute) Post-acute sequelae of COVID-19 (PASC) (Acute) Brain fog (Acute) Sacroiliac joint dysfunction of right side (Acute) Medical History Radicular syndrome of lower limbs Urinary frequency Sweating abnormality Dizziness Lower back pain Spongiotic dermatitis Hypertension Muscle cramps Sleep apnea GERD (gastroesophageal reflux disease) Left shoulder pain COVID Dyspnea Hiatal hernia Renal insufficiency Tendonitis of left rotator cuff Biceps tendinitis of left shoulder Depression Subacromial bursitis Bright red blood per rectum Chest pressure Chest fullness Skin lesion Psoriasis Osteopenia Hyperlipidemia H pylori ulcer Anxiety disorder B12 deficiency Chronic low back pain Fatigue Elevated blood pressure reading Dyspnea on exertion Hx of cardiac catheterization x2 stents Hx of depression headache Insomnia Surgical History Hx of cataract removal with insertion of prosthetic lens H/O colonoscopy Colonoscopy - MAC (11/25/16) Social History Smoking/Tobacco Use Status: Former Tobacco Use tobacco type: cigarettes Quit Date: 02/24/87 Smoking risk assessment performed?: Yes Alcohol Intake: current Alcohol Intake frequency: a few times a week Alcohol type: beer, wine and hard liquor Drug use: Occasionally Substance use type: marijuana Details: Marijuana cookie daily at bedtime: t-2. 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 Had profound dizziness, diaphoresis, chest palpitations/pressure. Dr. Merritt had low suspicion, felt it could be anxiety. CT Head neg, CXR unremarkable, labs unremarkable for signs of infection, mild elev SCr. Initial troponin 53, repeat value to 57- due to onset of symptoms while at this facility and very early blood draw, will repeat for a third value. -If stable patient can f/u outpatient Cardiology, if uptrending should likely get consult for admission. Last updated by Leonardo Bradley PA at 07/14/23 14:45
[2023-07-14 11:27] LABS: Lactate 1.4 mmol/L (0.6-1.4)
[2023-07-14 11:28] LABS: Abs Immature Grans 0.01 10^3/uL (0.0-0.06); Absolute Basophil Count 0.03 10^3/uL (0.0-0.2); Absolute Eosinophil Count 0.26 10^3/uL (0.0-0.7); Absolute Lymphocyte Count 1.76 10^3/uL (1.2-3.4); Absolute Monocyte Count 0.43 10^3/uL (0.1-0.8); Absolute Neutrophil Count 2.77 10^3/uL (1.2-6.7); Basophils % 0.6 %; Eosinophils % 4.9 %; HCT 42.1 % (36.0-46.0); HGB 13.8 g/dL (11.2-15.7); Immature Grans % 0.2 %; Lymphocytes % 33.5 %; MCH 32.5 pg (27.0-33.0); MCHC 32.8 % (32.0-36.0); MCV 99 fL (80-95); MPV 8.8 fL (8.0-11.0); Monocytes % 8.2 %; Neutrophils % 52.6 %; Platelet Count 260 10^3/uL (130-400); RBC 4.25 10^6/uL (3.93-5.22); RDW 13.3 % (11.7-14.6); RDW-SD 48.3 fL; WBC 5.26 10^3/uL (4.4-10.8)
[2023-07-14 11:48] LABS: ALT 28 U/L (14-59); AST 24 U/L (15-37); Albumin 3.6 g/dL (3.4-5.0); Alkaline Phosphatase 87 U/L (46-116); Anion Gap 7.3 mmol/L (3-11); BUN 26 mg/dL (7-18); Bilirubin, Total 0.7 mg/dL (0.2-1.0); CO2 27.7 mmol/L (21.0-32.0); CREATININE 1.2 mg/dL (0.55-1.02); Calcium 8.8 mg/dL (8.5-10.1); Chloride 105 mmol/L (98-107); Estimated GFR 45.76 (mL/min/1.73m2); Glucose 91 mg/dL (74-106); Lipase 36 U/L (16-77); Potassium 4.3 mmol/L (3.5-5.1); Sodium 140 mmol/L (136-145); Total Protein 6.9 g/dL (6.4-8.2)
[2023-07-14 11:57] LABS: Magnesium 2.1 mg/dL (1.8-2.4); NT-proBNP 34 pg/mL (<300); Troponin I 53 ng/L (< or =60)
--- NOTE | 2023-07-14 12:00 | DI.CT_ITS ---
Exam(s) CT HEAD WO EXAM: CT HEAD WO CLINICAL HISTORY: dizziness. TECHNIQUE: Imaging Protocol: Axial computed tomography images with coronal and sagittal reformatted images were created and reviewed COMPARISON: CR XR CHEST 2V PA LATERAL from 07/14/2023 FINDINGS: There are no skull fractures. There is no fluid in the visualized paranasal sinuses. There is no evidence of intracranial hemorrhage, mass effect, or shift of midline structures. There are no extra-axial fluid collections. The ventricles are not enlarged or shifted and there is no blo od within the ventricular system nor within the basal cisterns. IMPRESSION: No acute intracranial findings on this noninfused CT scan of the brain. RADIATION DOSE DELIVERED: 743.28mGy.cm Total DLP DATA REPOSITORY: All CT scans at this facility are submitted to the National Radiology Data Registry (NRDR) Dose Index Registry (DIR) with the [employer] (ACR). RADIATION OPTIMIZATION: All CT scans at this facility use at least one of these dose optimization te chniques: automated exposure control; mA and/or kV adjustment per patient size (includes targeted exa ms where dose is matched to clinical indication); or iterative reconstruction.
--- NOTE | 2023-07-14 12:00 | DI.RAD_ITS ---
Exam(s) XR CHEST 2V PA LATERAL EXAM: XR CHEST 2V PA LATERAL CLINICAL HISTORY: dizziness. TECHNIQUE: 2D digital imaging was performed. COMPARISON: CR XR PORTABLE CHEST AP from 10/24/2022 FINDINGS: 2 views: Heart size is normal. The mediastinum is not widened. Lungs are clear. No infiltrates nor pleural effusions. Left shoulder reverse prosthesis again noted. IMPRESSION: No acute pulmonary findings.Significant improvement in the appearance of the lung bases when compared to 10/24/2022. DATA REPOSITORY: RADIATION DOSE DELIVERED:
[2023-07-14 12:01] LABS: D-Dimer 448 ng/mlFEU (<500)
[2023-07-14 14:19] LABS: Troponin I 57 ng/L (< or =60)
[2023-07-14 14:21] VITALS: BP 127/62; PULSE 70; RESP 16; O2SAT 96
[2023-07-14] MEDS: Normal Saline 500 ML IV (14:32)
--- NOTE | 2023-07-14 15:40 | ED.PROG_ITS ---
Date of service: 07/14/23 Time of Service: 15:41 Medical Decision Making I received signout on this 78-year-old female pending repeat troponin. Cardiology has been consulted and if her delta troponin is not climbing she will be appropriate for empiric trial of discharge with expectant outpatient management and cardiology follow-up. Initial troponin 53. Second value 57. 5:37 pm Repeat trop with a delta of 0. Will discharge patient with return indications and outpatient cardiology follow-up. Quality:[facility] Health Related Social Needs: No Data to Display Sign Out Sign Out Data: Sign Out Comment: Patient sent over from Cardiology outpatient office visit- had unremarkable EKG there. Had profound dizziness, diaphoresis, chest palpi tations/pressure. Dr. Merritt had low suspicion, felt it could be anxiety. CT Head neg, CXR unremarkable, labs unremarkable for signs of infection, mild elev SCr. Initial troponin 53, repeat value to 57- due to onset of symptoms while at this facility and very early blood draw, will repeat for a third value. -If stable patient can f/u outpatient Cardiology, if uptrending should likely get consult f or admission. Last updated by Leonardo Bradley PA at 07/14/23 14:45 Discharge Plan Disposition Patient Disposition: Home Discharge Details Clinical Impression: Coronary artery disease, Weakness Primary Care Provider: Kristyn Whitehead V ED Provider: Christopher Drew Home Meds and New Rx's Prescriptions: Continued meclizine [Dramamine (meclizine)] 25 mg tablet 25 mg PO BID PRN gabapentin 100 mg capsule 200 mg PO QHS PRN clonazepam 0.5 mg tablet 0.5 mg PO DAILY PRN levothyroxine [Unithroid] 75 mcg tablet 75 mcg PO DAILY clonidine HCl 0.1 mg tablet 0.1 mg PO ONCE PRN (Reason: hypertensive emergency) cholecalciferol (vitamin D3) 10 mcg (400 unit) capsule 10 mcg PO DAILY epinephrine [EpiPen 2-Chong] 0.3 MG/0.3 ML auto-injector 0.3 mg IM ONCE PreserVision AREDS 1 EACH tablet 1 ea PO DAILY aspirin 81 MG tablet,chewable 81 mg PO DAILY Qty: 30 calcium carbonate-vitamin D3 [Calcium 600 + D(3)] 1 EACH tablet 1 ea PO DAILY paroxetine HCl [Paxil] 30 MG tablet 30 mg PO DAILY pantoprazole 40 MG tablet,delayed release (DR/EC) 40 mg PO DAILY cyanocobalamin (vitamin B-12) 1,000 mcg/mL solution 1,000 mcg IJ .Every 3 weeks lisinopril 20 mg tablet 20 mg PO BID atorvastatin 40 mg tablet 40 mg PO DAILY nitroglycerin 0.4 MG tablet, sublingual 0.4 mg Sublingual PRN Qty: 30 0RF acetaminophen 500 mg Capsule 1,000 mg PO ibuprofen 400 mg Tablet 400 mg PO TID Discharge Instructions Instructions: Weakness (ED) Additional Instructions: You are seen in the emergency department for your dizziness and weakness. Your blood work shows signs of chronic injury to your heart but no acute new injury. Please follow-up with your networks software consultant as previously recommended. Please return to the emergency department if you pass out or develop chest pain.
[2023-07-14 17:27] LABS: Troponin I 57 ng/L (< or =60)
[2023-07-14 17:47] VITALS: BP 117/67; PULSE 69; RESP 16; TEMP 36.8; O2SAT 100
[2023-07-14 17:57] VITALS: RESP 16
[2023-07-14 17:59] VITALS: BP 117/67; PULSE 69; RESP 16; TEMP 36.8; O2SAT 100
[2023-07-15 13:21] LABS: Calculated LDL 100 mg/dL (<100); Cholesterol 171 mg/dL (<200); HDL Cholesterol 47 mg/dL (40-60); TSH (W/Ref FT4) 1.68 uIU/mL (0.36-3.74); Triglyceride 121 mg/dL (<150)
[2023-07-15 13:22] LABS: Vitamin B12 > 2000 pg/mL (193-986)
== END 2023-07-14 18:00 | disposition home or self-care (01) ==
PROVIDERS: Physician Assistant; Emergency Provider Emergency Medicine; PCP Family Medicine
DX: R53.1 Weakness (principal); R42 Dizziness and giddiness; I25.10 Atherosclerotic heart disease of native coronary artery without angina pectoris; Z86.79 Personal history of other diseases of the circulatory system
CPT/HCPCS: 00123; 36415; 80053; 80061; 83690; 96360; 96361; 99284; 70450; 71046; 82607; 83605; 83735; 83880; 84443; 84484; 85025; 85379; 99283

== ENCOUNTER → 2023-07-28 00:58 | Outpatient (CLI) | payer MEDICARE, SELFPAY ==
--- NOTE | 2023-07-28 | DI.NM_ITS ---
APPROVED REPORT Exam: Exercise Treadmill Patient Location: Out-Patient Room/Bed: Ordering Provider:JOHN GISELA, Contact Number: [phone] BMI: 29.78 Baseline Rhythm: Sinus Rhythm Indications: Atherosclerotic heart disease of coronary artery. Medical History Medical History: GERD, Dyspnea, Sleep apnea, HTN, Fatigue, mixed angiety, depressin. Cardiac Medications: Atorvastatin, levothyroxine, ASA, clonidine, Lisinopril. Allergies: Sulfadiazine, effexor. Cardiac Risk Factors: HTN, Hyperlipidemia Previous Cardiac Procedures: Stents x2. Pretest Chest Pain Characteristics: No chest pain Exercise History: Sedentary Lung Sounds: Clear to auscultation Heart Sounds: Regular Stress Test Details Test: Exercise stress testing was performed using a Koffi protocol. Rest Isotope: Tc-99m Sestamibi. Dose: 10.7 Date: 07/28/2023 Injection Time: 0920 Stress Isotope: Tc-99m Sestamibi. Dose: 32.6 Date: 07/28/2023 Injection Time: 1105 HR Resting HR Supine: 61 bpm Max Heart Rate (APMHR): 140.326663 bpm Resting HR Standin bpm Target HR (85% APMHR): 119.700402 bpm Max HR Achieved: 135 bpm % of APMHR: 96.43 Recovery HR: 72 bpm HR response to stress: Normal HR response to stress BP Resting BP Supine: 160/86 mmHg Resting BP Standin/92 mmHg Max BP: 220/118 mmHg Recovery BP: 162/92 mmHg BP response to stress: Abnormal hypertensive response to stress. ECG Resting ECG: Sinus Rhythm Ectopy: none Stress ECG: Sinus Tachycardia ST Change: No significant ST segment changes noted Lead(s): II, III, aVF Stage: [address] Deviation: 1 mm Arrhythmia: VPC's Comment: Ocasional PVC Recovery ECG: Sinus Rhythm Lead(s): II, III, aVF Recovery ST Deviation: 1 mm Recovery Arrhythmia: Rare PVC Clinical Reason for Termination: Fatigue, Dyspnea, Target HR Achieved Exercise duration: 2 min30 sec Highest Stage Reached: Stage 1: 1.7 mph at 10% grade. Exercise capacity: 4.64 METs Angina Score: None Valverde Treadmill Score: -3.0 Rate Pressure Product: [id number] Stress ECG Conclusion 1. Resting electrocardiogram was normal 2. Patient exercised on the Koffi protocol for 2 minutes and 30 seconds, a workload of 4.64 METS 3. Hypertensive blood pressure response to exercise. Rapid heart rate response to exercise. Peak he art rate achieved was 96% of predicted for age 4. There was no electrocardiographic evidence of myocardial ischemia 5. Rare PVCs 6. See MPI report Valverde Treadmill Score is -3.0 which is Moderate risk. Stress Test Summary STAGE Time (mins) Speed (mph) Grade (%) HR BP SpO2 SYMPTOMS METS Supine 61 160/86 96 Standing 66 150/92 96 1 3 1.7 10 132 4.5 1 min recovery 113 220/118 3 min recovery 86 210/98 96 6 min recovery 75 168/88 9 min recovery 72 162/92 95 MPI Conclusion Myocardial perfusion is normal. There is no ischemia or evidence of prior infarction Ejection fraction is 63% with normal wall motion Radiologist Interpretation Radiologist Interpretation by: Adan Baptiste MD Interpretation Date/Time: 07/28/2023 16:08:18
== END ==
PROVIDERS: PCP Family Medicine; Visit Provider Family Medicine
DX: I25.10 Atherosclerotic heart disease of native coronary artery without angina pectoris (principal)
CPT/HCPCS: 78452; 93016; 93018; 93017

== ENCOUNTER → 2023-07-31 02:31 | Outpatient (CLI) | payer MEDICARE, SELFPAY ==
[2023-07-31] MEDS: Omnipaque 350 MG/ML 100 ML BTL 70 ML IJ (13:18)
[2023-07-31] MEDS: Normal Saline - Diluent 50 ML VIAL IJ (13:19)
--- NOTE | 2023-07-31 13:30 | DI.CT_ITS ---
Exam(s) CT CHEST W EXAM: CT CHEST W CLINICAL HISTORY: DYSPNEA R06.00. TECHNIQUE: Multi planar reconstructions were performed. CONTRAST MATERIAL: Omnipaque 350; 75 cc COMPARISON: CT CT CHEST PE CTA from 08/22/2021 CR XR PORTABLE CHEST AP from 10/24/2022 CR XR CHEST 2V PA LATERAL from 07/14/2023 FINDINGS: CHEST: LUNGS: No ominous pulmonary nodules. Mild increased markings are noted in posterior basal segment of both lower lobes, similar to previous. There are no pleural effusions. A small calcified granuloma in the left lower lobe is unchanged. No new findings in the trachea and mainstem bronchi. MEDIASTINUM: There is no hilar nor mediastinal adenopathy. Visualized thyroid unremarkable.Large hiat al hernia is again noted CARDIAC: Heart size is normal. There is no pericardial effusion.Caliber of the thoracic aorta is wit hin normal limits. VISUALIZED UPPER ABDOMEN:There are no significant adrenal masses. OSSEOUS: No significant osseous lesions.No new fractures.. IMPRESSION: 1. Stable appearance when compared to prior CT scan of 08/22/2021. 2. Prominent hiatal hernia is again noted. RADIATION DOSE DELIVERED: 543.57mGy.cm Total DLP DATA REPOSITORY: All CT scans at this facility are submitted to the National Radiology Data Registry (NRDR) Dose Index Registry (DIR) with the [employer] (A[employer]). RADIATION OPTIMIZATION: All CT scans at this facility use at least one of these dose optimization te chniques: automated exposure control; mA and/or kV adjustment per patient size (includes targeted exa ms where dose is matched to clinical indication); or iterative reconstruction.
== END ==
PROVIDERS: PCP Family Medicine; Visit Provider Family Medicine
DX: R06.00 Dyspnea, unspecified (principal)
CPT/HCPCS: 71260; J3490

== ENCOUNTER 2023-08-13 15:15 | Outpatient (CLI) | payer MEDICARE, SELFPAY ==
--- NOTE | 2023-08-13 09:45 | DI.RAD_ITS ---
Exam(s) XR SHOULDER LT COMPLETE 2+V EXAM: XR SHOULDER LT COMPLETE 2+V CLINICAL HISTORY: F/U LEFT RTSA. TECHNIQUE: 2D digital imaging was performed. Three views. COMPARISON: CR XR SHOULDER LT COMPLETE 2+V from 12/11/2022 FINDINGS: BONES: No acute fracture is present. No bony destructive lesion is seen. JOINTS: No dislocation present. Stable alignment of shoulder prosthesis SOFT TISSUE: Normal. IMPRESSION: Stable postoperative appearance. DATA REPOSITORY: RADIATION DOSE DELIVERED:
== END 2023-08-13 15:16 | disposition home or self-care (01) ==
LOC: DIORS 15:15
PROVIDERS: PCP Family Medicine; Visit Provider Student in an Organized Health Care Education/Training Program
DX: Z47.1 Aftercare following joint replacement surgery (principal); Z96.612 Presence of left artificial shoulder joint
CPT/HCPCS: 99213; 73030

== ENCOUNTER 2023-09-11 18:16 | Outpatient (REF) | payer MEDICARE, SELFPAY ==
[2023-09-11 18:27] LABS: Hemoglobin A1C 5.6 % (<5.7)
[2023-09-11 18:28] LABS: Vitamin B12 763 pg/mL (193-986)
[2023-09-15 13:39] LABS: Albumin 61.4 % (55.8-66.1); Albumin g/dL 4.3 g/dL (3.6-5.2)
== END 2023-09-11 18:17 | disposition home or self-care (01) ==
LOC: NCHCN 18:16
PROVIDERS: PCP Family Medicine; Visit Provider Family Medicine
DX: E53.8 Deficiency of other specified B group vitamins (principal); E03.9 Hypothyroidism, unspecified; I10 Essential (primary) hypertension; F41.8 Other specified anxiety disorders; Z79.899 Other long term (current) drug therapy
CPT/HCPCS: 82607; 83036; 84165

== ENCOUNTER 2024-09-01 04:04 | Outpatient (CLI) | payer MEDICARE, SELFPAY ==
[2024-09-01 09:07] LABS: HCT 42.7 % (36.0-46.0); HGB 13.9 g/dL (11.2-15.7)
[2024-09-01 09:54] LABS: ALT 27 U/L (14-59); AST 25 U/L (15-37); Albumin 3.9 g/dL (3.4-5.0); Alkaline Phosphatase 102 U/L (46-116); Anion Gap 10.6 mmol/L (3-11); BUN 25 mg/dL (7-18); Bilirubin, Total 0.6 mg/dL (0.2-1.0); CO2 25.4 mmol/L (21.0-32.0); Calcium 9.1 mg/dL (8.5-10.1); Chloride 105 mmol/L (98-107); Estimated GFR 56.60 (mL/min/1.73m2); Glucose 105 mg/dL (74-106); Potassium 4.3 mmol/L (3.5-5.1); Sodium 141 mmol/L (136-145); TSH 5.25 uIU/mL (0.36-3.74); Total Protein 7.4 g/dL (6.4-8.2)
[2024-09-01 09:55] LABS: Hemoglobin A1C 5.5 % (<5.7)
== END 2024-09-01 04:05 | disposition home or self-care (01) ==
LOC: LBO 04:04
PROVIDERS: PCP Family Medicine; Visit Provider Family Medicine
DX: Z13.1 Encounter for screening for diabetes mellitus (principal); I10 Essential (primary) hypertension; E03.9 Hypothyroidism, unspecified; R06.02 Shortness of breath
CPT/HCPCS: 36415; 80053; 83036; 84439; 84443; 85014; 85018

== ENCOUNTER 2024-10-14 02:45 | Observation (INO) | payer MEDICARE, SELFPAY ==
[2024-10-14] VITALS (82 sets, daily range): BP systolic 80–240; BP diastolic 25–99; PULSE 59–86; RESP 14–26; TEMP 36–37.2; O2SAT 85–97; BMI 32.1
--- NOTE | 2024-10-14 03:30 | DI.CT_ITS ---
Exam(s) CT THORAX ABD/PEL CTA EXAM: CT THORAX ABD/PEL CTA CLINICAL HISTORY: epigastric RUQ TTR, severe pain, hypertensive. TECHNIQUE: Imaging Protocol: Axial computed tomography images with coronal and sagittal reformatted images were created and reviewed CONTRAST MATERIAL: Intravenous: Omnipaque 350 Contrast volume:100 ml Oral: None COMPARISON: CT CT CHEST W from 07/31/2023 US US ABDOMEN LIMITED from 10/14/2024 FINDINGS: CHEST: AORTA: The maximum diameter of the ascending thoracic aorta is 3.7 cm. No evidence of dissection. The diameter of the aortic arch and descending thoracic aorta are upper normal. No dissection. There is no evidence of abdominal aortic aneurysm. No dissection. No iliac artery aneurysms nor dissection. Common femoral arteries are patent. There is some calcified plaque at the aortic bifurcation but no hemodynamically significant stenosis at this level nor elsewhere in the iliac vessels. The celiac and SMA and YGOI are patent. No significant stenosis in the renal arteries. LUNGS: No infiltrates nor pleural effusions. No ominous pulmonary nodules evident. MEDIASTINUM: There is no hilar nor mediastinal adenopathy. Large hiatal hernia noted. CARDIAC: Heart size upper normal. No pericardial effusion. ABDOMEN: There is no generalized ascites. LIVER: There is hepatic steatosis with an element of fatty parenchymal sparing of around the gallbladder fossa. GALLBLADDER/BILIARY: The gallbladder appears moderately distended and there appears to be a small amount of pericholecystic fluid. No obvious calcified gallstones. CBD is not dilated. PANCREAS: No evidence of pancreatic mass nor dilatation of the pancreatic duct. SPLEEN: Spleen is not enlarged. There are no intrasplenic lesions. ADRENALS: There are no significant adrenal masses. KIDNEYS: No cysts evident. No calculi nor hydronephrosis. No solid renal masses. ABDOMINAL AORTA: The abdominal aorta is not enlarged. LYMPH NODES: There is no retroperitoneal nor para-aortic adenopathy. No obvious mesenteric masses. ABDOMINAL WALL: No evidence of significant anterior abdominal wall hernia. GI: There is no evidence of bowel obstruction, free air, nor abscess. PELVIS: LYMPH NODES: There is no intrapelvic nor inguinal adenopathy. GI: No evidence of appendicitis.Diverticuli but no evidence of acute sigmoid diverticulitis. URINARY BLADDER: No calculi nor masses evident REPRODUCTIVE: Uterus and adnexal regions unremarkable. OSSEOUS: No fractures nor significant osseous lesions. There is advanced chronic disc space narrowing at L2-3 and L5-S1 levels. Mild retrolisthesis of L2 upon L3 noted. No compression fractures. IMPRESSION: 1. Although there are no gallstones evident, the gallbladder does appear distended and with some mild pericholecystic fluid. The CBD is not dilated. Correlation with any clinical signs of acute cholecystitis recommended. Consider performing gallbladder ultrasound. 2. Hepatic steatosis. 3. Large hiatal hernia. 4. No significant findings in the thoracic and abdominal aorta is nor within the iliac arteries. Sigmoid diverticulosis without evidence of acute diverticulitis. Preliminary virtual Radiology report was reviewed. RADIATION DOSE DELIVERED: 827.73mGy.cm Total DLP DATA REPOSITORY: All CT scans at this facility are submitted to the National Radiology Data Registry (NRDR) Dose Index Registry (DIR) with the [employer] (ACR). RADIATION OPTIMIZATION: All CT scans at this facility use at least one of these dose optimization techniques: automated exposure control; mA and/or kV adjustment per patient size (includes targeted exams where dose is matched to clinical indication); or iterative reconstruction.
--- NOTE | 2024-10-14 04:14 | W.EDPROG ---
Date of service: 10/14/24 Time of Service: 04:15 Medical Decision Making Initial documentation during EMR downtime. In brief, 79yo F with severe epigastric/RUQ abdominal pain onset 193 with associated N/V. Hypertensive on arrival, vital signs otherwise reassuring, epigastric and RUQ tenderness on exam with + Owens's, no rebound or guarding. Initial plan for CT abd/pelvis; repeat VS even more hypertensive SBP 230's. Suspect 2/t to pain but must also consider dissection so changed to CTA, given pain medication and will add 5mg IV lopressor while awaiting results of workup. -CT independently reviewed, no clear dissection on my view, does have distended gallbladder with thickened wall. -EKG SR, no ST segment or T wave abnormalities to suggest occlusive [place]. -Labs reviewed as below, CBC with mild leukoctyosis (nonspecific) and normal hemoglobin, CMP with no actionable abnormalities and reassuring LFTs, Mg normal, lipase not suggestive of pancreatitis, lactate elevated at 3.2, initial troponin 51 with one hour repeat 49 reassuring against ACS. On reassessemnt pain improve after morphine. SBP now 150's. Repeat lactate down to 2.8. Radiology read on CT scan with concern for acute cholecystitis. Started on zosyn and discussed [facility] surgery Dr. Rao; requested US be ordered and pt admitted to hospitalist service. Discussed with [facility] hospitalist Dr. Bhat; pt accepted to medicine service. Awaiting admission orders and transfer to the floor. Lab Data Lab results reviewed: Yes I reviewed the patient's lab results. Labs: Laboratory Tests Range/Units 10/14/24 10/14/24 10/14/24 03:22 04:34 05:35 WBC (4.4-10.8) 10^3/uL 12.30 H RBC (3.93-5.22) 10^6/uL 4.69 Hgb (11.2-15.7) g/dL 14.8 Hct (36.0-46.0) % 44.3 MCV (80-95) fL 95 MCH (27.0-33.0) pg 31.6 MCHC (32.0-36.0) % 33.4 RDW (11.7-14.6) % 12.8 Plt Count (130-400) 10^3/uL 273 MPV (8.0-11.0) fL 9.0 Immature Gran % % 0.2 Neutrophils % % 88.5 Lymphocytes % % 8.3 Monocytes % % 2.7 Eosinophils % % 0.1 Basophils % % 0.2 Nucleated RBC % (0.0-0.3) % 0.0 Absolute Neutrophils (1.2-6.7) 10^3/uL 10.89 H Absolute Lymphocytes (1.2-3.4) 10^3/uL 1.02 L Absolute Monocytes (0.1-0.8) 10^3/uL 0.33 Absolute Eosinophils (0.0-0.7) 10^3/uL 0.01 Absolute Basophils (0.0-0.2) 10^3/uL 0.02 PT (9.1-11.1) sec 10.1 INR (0.9-1.1) 1.0 APTT (20.6-30.2) sec 22.4 VBG Lactate (<or=2.0) mmol/L 3.2 H* 2.8 H* Sodium (136-145) mmol/L 141 Potassium (3.5-5.1) mmol/L 3.7 Chloride (98-107) mmol/L 101 Carbon Dioxide (21.0-32.0) mmol/L 27.5 Anion Gap (3-11) mmol/L 12.5 H BUN (7-18) mg/dL 20 H Creatinine (0.55-1.02) mg/dL 1.1 H Est GFR (CKD-EPI 2020) (mL/min/1.73m2) 50.48 Glucose (74-106) mg/dL 175 H Calcium (8.5-10.1) mg/dL 9.7 Magnesium (1.8-2.4) mg/dL 2.0 Total Bilirubin (0.2-1.0) mg/dL 0.7 AST (15-37) U/L 25 ALT (14-59) U/L 28 Alkaline Phosphatase (46-116) U/L 110 Troponin I (<or=51) ng/L 51 49 Total Protein (6.4-8.2) g/dL 7.9 Albumin (3.4-5.0) g/dL 4.3 Lipase (<78) U/L 31 Add-On Test Request DONE Discharge Plan Disposition Patient Disposition: Admit to [facility] Condition: Serious Discharge Details Clinical Impression: Acute cholecystitis, Hypertension Primary Care Provider: Kristyn Whitehead V ED Provider: Isabel Epstein Home Meds and New Rx's Prescriptions: No Action meclizine [Dramamine (meclizine)] 25 mg tablet 25 mg PO BID PRN gabapentin 100 mg capsule 200 mg PO QHS PRN clonazepam 0.5 mg tablet 0.5 mg PO DAILY PRN levothyroxine [Unithroid] 75 mcg tablet 75 mcg PO DAILY clonidine HCl 0.1 mg tablet 0.1 mg PO ONCE PRN (Reason: hypertensive emergency) cholecalciferol (vitamin D3) 10 mcg (400 unit) capsule 10 mcg PO DAILY epinephrine [EpiPen 2-Chong] 0.3 MG/0.3 ML auto-injector 0.3 mg IM ONCE PreserVision AREDS 1 EACH tablet 1 ea PO DAILY aspirin 81 MG tablet,chewable 81 mg PO DAILY Qty: 30 calcium carbonate-vitamin D3 [Calcium 600 + D(3)] 1 EACH tablet 1 ea PO DAILY paroxetine HCl [Paxil] 30 MG tablet 30 mg PO DAILY pantoprazole 40 MG tablet,delayed release (DR/EC) 40 mg PO DAILY cyanocobalamin (vitamin B-12) 1,000 mcg/mL solution 1,000 mcg IJ .Every 3 weeks lisinopril 20 mg tablet 20 mg PO BID atorvastatin 40 mg tablet 40 mg PO DAILY nitroglycerin 0.4 MG tablet, sublingual 0.4 mg Sublingual PRN Qty: 30 0RF acetaminophen 500 mg Capsule 1,000 mg PO ibuprofen 400 mg Tablet 400 mg PO TID
[2024-10-14 04:27] LABS: Lab Add On Test DONE
--- NOTE | 2024-10-14 04:30 | RT.EKG_ITS ---
APPROVED REPORT Exam: Resting ECG Reason for Exam: abd pain Patient Location: I HR:63 bpm ECG Measurements Heart Rate 63 AXIS AL 185 P 47 QRSd 96 QRS 41 QT 460 T 54 QTc 472 Conclusion Sinus rhythm...normal P axis, V-rate 60- [address] segment or T wave abnormalities to suggest occlusive [place]
[2024-10-14 04:33] LABS: Abs Immature Grans 0.03 10^3/uL (0.0-0.06); HCT 44.3 % (36.0-46.0); HGB 14.8 g/dL (11.2-15.7); INR 1.0 (0.9-1.1); Immature Grans % 0.2 %; MCH 31.6 pg (27.0-33.0); MCHC 33.4 % (32.0-36.0); MCV 95 fL (80-95); MPV 9.0 fL (8.0-11.0); PTT Activated 22.4 sec (20.6-30.2); Platelet Count 273 10^3/uL (130-400); Prothrombin Time 10.1 sec (9.1-11.1); RBC 4.69 10^6/uL (3.93-5.22); RDW 12.8 % (11.7-14.6); RDW-SD 43.8 fL; WBC 12.30 10^3/uL (4.4-10.8)
[2024-10-14 04:40] LABS: Anion Gap 12.5 mmol/L (3-11); BUN 20 mg/dL (7-18); CO2 27.5 mmol/L (21.0-32.0); Calcium 9.7 mg/dL (8.5-10.1); Chloride 101 mmol/L (98-107); Estimated GFR 50.48 (mL/min/1.73m2); Glucose 175 mg/dL (74-106); Lipase 31 U/L (<78); Magnesium 2.0 mg/dL (1.8-2.4); Potassium 3.7 mmol/L (3.5-5.1); Sodium 141 mmol/L (136-145); Troponin I 51 ng/L (<or=51)
[2024-10-14 04:50] LABS: ALT 28 U/L (14-59); AST 25 U/L (15-37); Albumin 4.3 g/dL (3.4-5.0); Alkaline Phosphatase 110 U/L (46-116); Bilirubin, Total 0.7 mg/dL (0.2-1.0); Total Protein 7.9 g/dL (6.4-8.2)
[2024-10-14 04:55] LABS: Troponin I 49 ng/L (<or=51)
[2024-10-14] MEDS: MORPHine 4 MG/ML SYR IVP (05:01)
--- NOTE | 2024-10-14 05:44 | DI.US_ITS ---
Exam(s) US ABDOMEN LIMITED EXAM: US ABDOMEN LIMITED CLINICAL HISTORY: RUQ pain, CT with choleycystitis TECHNIQUE: Ultrasound abdomen performed using standard protocol. COMPARISON: US US ECHOCARDIOGRAM from 07/08/2023 FINDINGS: There is no ascites evident. LIVER: Mildly hyperechoic indicating an element of steatosis. There are no hepatic lesions evident nor dilatation of intrahepatic ducts. GALLBLADDER/BILIARY: Gallbladder is moderately distended. No gallstones evident. However, there is some uniform thickening the gallbladder wall, exhibiting thickness 5 mm. There is also a tiny amount of pericholecystic fluid. Patient was apparently quite tender over the gallbladder during scanning today. The common hepatic duct isnot dilated, measuring 6mm at the level of dioni hepatis. PANCREAS: There is no evidence of pancreatic mass nor dilatation of the pancreatic duct. RIGHT KIDNEY:No evidence of solid mass, calculus, nor hydronephrosis. No cortical cysts evident. IMPRESSION: 1. There are no gallstones but the gallbladder appears distended and mildly edematous. Suspect possible acalculous cholecystitis. Correlation with clinical findings in blood work recommended. If clinically indicated nuclear hepatobiliary imaging/HIDA scan can be performed to determine gallbladder f unction/ejection fraction 2. Hepatic steatosis. 3. There is no ascites. DATA REPOSITORY:
[2024-10-14] MEDS: PIPERACILLIN/TAZO 4.5 GM in Normal Saline 100 ML IVPB (05:49)
--- NOTE | 2024-10-14 06:00 | W.PM.HP.N ---
Date of service: 10/14/24 Time of Service: 06:01 Assessment and Plan Assessment and plan (1) Acute cholecystitis: Status: Acute Assessment and plan: Likely diagnosis. Imaging reports pending. Ultrasound pending Awaiting general surgery evaluation Continue PRN morphine Starting NS @ 125 (2) History of diabetes mellitus: Status: Acute Assessment and plan: A1C in the 5's in August Medication record includes liraglutide six months ago Tirzepatide appears to have been started concurrently, now on 0.5 mg weekly dose Correctional insulin while hospitalized (3) High risk medication use: Status: Acute Assessment and plan: Concern for tirzepatide adverse reaction However nausea/vomiting is not chronic, no constipation reported (4) Hypertension: Status: Chronic Assessment and plan: Resume home losartan after surgery History of Present Illness History of Present Illness Chief Complaint: abdominal pain Narrative: Emani Delong is an 79 year old woman presenting October 14 with acute onset of RUQ pain and nausea and vomiting. Patient reports that she did not eat anything out of the ordinary prior to onset of pain around 1930, approximately 7 hours prior to arrival. The pain did not improve so she came in. No chest pain, no shortness of breath. Patient encounter occurred during electronic medical record downtime and data may be preliminary. PMH includes diabetes no longer on liraglutide, obesity on tirzepatide, CAD with stents, HTN on losartan, COPD on symbicort. Numerous reported allergies. In the ED the patient was hypertensive 240/99 and was given IV morphine with good result. Reportedly she was also given IV metoprolol. Vitals otherwise unremarkable. VBG lactate 3.2 falling to 2.8. Neutrophilic leukocytosis with WBC 12.3. BUN elevated at 20, creatinine 1.1 against 1.0 baseline. Troponin 49 with pending recheck. CTA reportedly done and reviewed, no reported dissection nor mesenteric ischemia, however gallbladder is distended. Ultrasound is pending. Dr Rao, general surgery, will consult and evaluate. PFS All Active Problems (Updated 10/14/24 @ 06:32 by Reza Bhat MD) History of diabetes mellitus (Acute) Hypertension (Chronic) Acute cholecystitis (Acute) Status post reverse total arthroplasty of left shoulder (Acute) History of coronary artery stent placement (Chronic) Coronary artery disease (Chronic) Hypothyroidism (Chronic) Shortness of breath (Acute) Aortic regurgitation (Acute) High risk medication use (Acute) Chest pain (Acute) Weakness (Acute) Arthritis of left glenohumeral joint (Acute) Bursitis of left shoulder (Acute) Post-acute sequelae of COVID-19 (PASC) (Acute) Brain fog (Acute) Sacroiliac joint dysfunction of right side (Acute) Medical History Radicular syndrome of lower limbs Urinary frequency Sweating abnormality Dizziness Lower back pain Spongiotic dermatitis Hypertension Muscle cramps Sleep apnea GERD (gastroesophageal reflux disease) Left shoulder pain COVID Dyspnea Hiatal hernia Renal insufficiency Tendonitis of left rotator cuff Biceps tendinitis of left shoulder Depression Subacromial bursitis Bright red blood per rectum Chest pressure Chest fullness Skin lesion Psoriasis Osteopenia Hyperlipidemia H pylori ulcer Anxiety disorder B12 deficiency Chronic low back pain Fatigue Elevated blood pressure reading Dyspnea on exertion Hx of cardiac catheterization x2 stents Hx of depression headache Insomnia Surgical History Hx of cataract removal with insertion of prosthetic lens H/O colonoscopy Colonoscopy - MAC (11/25/16) Social History Smoking/Tobacco Use Status: Former Tobacco Use tobacco type: cigarettes Quit Date: 02/24/87 Smoking risk assessment performed?: Yes Alcohol Intake: current Alcohol Intake frequency: a few times a week Alcohol type: beer, wine and hard liquor Drug use: Occasionally Substance use type: marijuana Details: Marijuana cookie daily at bedtime: t-2. Alcohol: t-1, one drink Housing: house Education Level: vocational ([employer]) Current gender identity: female Do you feel safe at home: Yes Do you feel safe in your relationship?: Yes Meds Allergies and Home Medications Allergies Allergy/AdvReac Type Severity Reaction Status Date / Time broccoli Allergy Severe Other (See Verified 08/13/23 09:57 Comment) cauliflower Allergy Severe Other (See Verified 08/13/23 09:57 Comment) mustard Allergy Severe Other (See Verified 08/13/23 09:57 Comment) peanut Allergy Severe Other (See Verified 08/13/23 09:57 Comment) soy Allergy Severe Other (See Verified 08/13/23 09:57 Comment) tree nut Allergy Severe Other (See Verified 08/13/23 09:57 Comment) legumes Allergy Other (See Unverified 08/13/23 09:57 Comment) lettuce Allergy Other (See Unverified 08/13/23 09:57 Comment) Sulfa (Sulfonamide Allergy Other (See Verified 08/13/23 09:57 Antibiotics) Comment) tomato Allergy Other (See Unverified 08/13/23 09:57 Comment) venlafaxine HCl (From Allergy Other (See Verified 08/13/23 09:57 Effexor) Comment) grapes Allergy Severe Other (See Uncoded 08/13/23 09:57 Comment) exercise induce anaphylaxis AdvReac Other (See Uncoded 08/13/23 09:57 Comment) Home Medications ?Medication ?Instructions ?Recorded ?Confirmed ?Type epinephrine 0.3 mg/0.3 mL 0.3 mg IM ONCE 09/23/12 08/13/23 History injection, auto-injector (EpiPen 2-Chong) vitamins A,C,[id number] 2,148 1 ea PO DAILY 09/23/12 08/13/23 History mcg-113 mg-45 mg-17.4 mg tablet (PreserVision AREDS) aspirin 81 mg chewable tablet 81 mg PO DAILY ##30 11/17/15 08/13/23 History calcium 600 mg (as 1 ea PO DAILY 09/12/17 08/13/23 History carbonate)-vitamin D3 5 mcg (200 unit) tablet (Calcium 600 + D(3)) pantoprazole 40 mg tablet,delayed 40 mg PO DAILY 09/12/17 08/13/23 History release paroxetine HCl 30 mg tablet (Paxil) 30 mg PO DAILY 09/12/17 08/13/23 History atorvastatin 40 mg tablet 40 mg PO DAILY 08/22/21 08/13/23 History lisinopril 20 mg tablet 20 mg PO BID 08/22/21 08/13/23 History nitroglycerin 0.4 mg sublingual 0.4 mg sublingual PRN #30 tabs 08/23/21 08/13/23 Rx tablet clonidine HCl 0.1 mg tablet 0.1 mg PO ONCE PRN hypertensive 07/23/22 08/13/23 History emergency cyanocobalamin (vitamin B-12) 1,000 mcg IJ .Every 3 weeks 07/23/22 08/13/23 History 1,000 mcg/mL injection solution clonazepam 0.5 mg tablet 0.5 mg PO DAILY PRN 09/26/22 08/13/23 History gabapentin 100 mg capsule 200 mg PO QHS PRN 09/26/22 08/13/23 History levothyroxine 75 mcg tablet 75 mcg PO DAILY 09/26/22 08/13/23 History (Unithroid) meclizine 25 mg tablet (Dramamine 25 mg PO BID PRN 09/26/22 08/13/23 History (meclizine)) acetaminophen 500 mg capsule 1,000 mg PO 10/24/22 08/13/23 History ibuprofen 400 mg tablet 400 mg PO TID 10/24/22 08/13/23 History cholecalciferol (vitamin D3) 10 10 mcg PO DAILY 11/06/22 08/13/23 History mcg (400 unit) capsule Exam Narrative Exam Narrative: General: This is an elderly woman in no acute distress after receiving pain medication HEENT: Normocephalic, atraumatic CV: RRR Resp: CTAB Abd: soft, tender to palpation RUQ with positive Owens's sign MSK: voluntary motion x4 Neuro: Awake, alert, no focal deficits Results Labs 10/14/24 03:22 10/14/24 03:22 Labs: Laboratory Results - last 24 hr 10/14/24 10/14/24 10/14/24 03:22 04:34 05:35 WBC 12.30 H RBC 4.69 Hgb 14.8 Hct 44.3 MCV 95 MCH 31.6 MCHC 33.4 RDW 12.8 Plt Count 273 MPV 9.0 Immature Gran % 0.2 Neutrophils % 88.5 Lymphocytes % 8.3 Monocytes % 2.7 Eosinophils % 0.1 Basophils % 0.2 Nucleated RBC % 0.0 Absolute Neutrophils 10.89 H Absolute Lymphocytes 1.02 L Absolute Monocytes 0.33 Absolute Eosinophils 0.01 Absolute Basophils 0.02 PT 10.1 INR 1.0 APTT 22.4 VBG Lactate 3.2 H* 2.8 H* Sodium 141 Potassium 3.7 Chloride 101 Carbon Dioxide 27.5 Anion Gap 12.5 H BUN 20 H Creatinine 1.1 H Est GFR (CKD-EPI 2020) 50.48 Glucose 175 H Calcium 9.7 Magnesium 2.0 Total Bilirubin 0.7 AST 25 ALT 28 Alkaline Phosphatase 110 Troponin I 51 49 Total Protein 7.9 Albumin 4.3 Lipase 31 Add-On Test Request DONE Last Vital Signs Temp 36.9 C 10/14/24 04:20 Pulse 73 10/14/24 04:25 Resp 18 10/14/24 04:38 BP 136/75 10/14/24 05:03 Pulse Ox 94 10/14/24 04:38 Time Spent Time spent with Patient: 40-54 minutes Time was spent: preparing to see the patient(eg.review tests), obtaining and/or reviewing separately otained hiistory, ordering medications,tests, procedures, referring, communicating with other health urgent care nurse practitioner, indepentently interpreting results, counseling the patient and care coordination
[2024-10-14 06:12] LABS: NT-proBNP 284 pg/mL (<300)
[2024-10-14 06:32] LABS: Hemoglobin A1C 5.5 % (<5.7)
[2024-10-14] MEDS: Omnipaque 350 MG/ML 100 ML BTL IJ (07:32)
[2024-10-14] MEDS: Normal Saline - Diluent 50 ML VIAL IJ (07:33)
[2024-10-14] MEDS: MORPHine 2 MG/ML SYR IVP ×2 (08:06→10:24)
[2024-10-14] MEDS: Insulin Aspart 300 UNITS/3 ML PEN SC ×2 (08:07→17:23)
[2024-10-14] MEDS: Normal Saline Flush 10 ML SYR IVP ×2 (08:15→21:00)
--- NOTE | 2024-10-14 08:40 | PDOC.CMIN ---
Date of service: 10/14/24 Time of Service: 16:08 Care Management Initial Assmt Initial Assessment Reason for Hospitalization: Cholecystitis Functional Status/Living Situation Patient Presentation: Emani was in the PACU when CM attempted to meet with her. CM attempted to contact family and was met with no response. Emani presented to the ED early this morning for evaluation of severe epigastric / right upper quadrant abdominal pain with associated N/V. CM requested PT consult for when it is appropriate. Per report, Emani is in pain and will undergo a laparoscopic cholecystitis today. No known advanced directives nor HCA forms. CM will attempt to meet with the patient tomorrow. CM will continue to follow. Town of Residence: [place] Resides with: Spouse Significant Other/Family: Local Natural Supports: family Advance Directives Advance Directives: Do you have an Advance Directive: N 07/01/12, 10:42 AD On File at [facility]: N 07/01/12, 10:42 Date Asked 10/14/24 Today, 06:52 AD Date Reviewed COLST On File at [facility] COLST Date Scanned Code Status Resuscitation Status Full Code Portal Pt does not currently have a portal and education provided: No Portal Education: Other (unable to met with this patient at this time. ) Insurance Coverage/Financial Issues Insurance: Medicare Part A & B [id number] [id number] Care Team Visit Care Team Role Provider Type David Ruiz MD MD [facility] STAFF PHYSICIAN Kristyn Whitehead MD Primary Care Provider [facility] STAFF PHYSICIAN Isabel Epstein MD Emergency Provider [facility] STAFF PHYSICIAN Reza Bhat MD Admit Provider [facility] STAFF PHYSICIAN Attending Provider Discharge Potential Discharge Needs: PT Evaluation, PCP F/U Appt and Surgical F/U Appt Anticipated Barriers to Discharge: Medical Status Patient/Family Education Needs: Review discharge instructions, discuss Ask Me Three Transportation: Private vehicle Plan: Anticipate Emani will be discharged home once medically ready possible with new service pending PT consult. It is recommended Emani will follow up with her community providers, and likely general surgery and continue per her plan of care. Emani will likely transport via private vehicle by her family. CM will continue to follow. Social Determinants of Health Screening Social Determinants of health last assessed in clinic: 10/14/24 Will the Patient Participate in the Screening?: Yes Do you worry about having a steady place to live?: no Problems where you live: no known problems In the past 12 months, have you had to go without electric, gas, oil or water in your home?: no 1. Within the past 12 months, we worried whether our food would run out before we got money to buy more.: Never true 2. Within the past 12 months, the food we bought just didn't last and we didn't have money to get more.: Never true Has lack of transportation kept you from medical appointments or from doing things needed for daily living?: no Has anyone in your life made you feel unsafe or unsupported?: no How hard is it for you to pay for the very basics like food, housing, medical care, and heating? Would you say it is:: Not hard at all Do you want help finding or keeping work or a job?: I do not need or want help If for any reason you need help with day-to-day activities such as bathing, preparing meals, shopping, managing finances, etc., do you get the help you need?: I don?t need any help How often do you feel lonely or isolated from those around you?: Sometimes Do you speak a language other than Indian at home?: No Does the patient want assistance with any of the above?: No Health Related Social Needs Health related social needs: feeling lonely/isolated (Z60.8) Health related social needs details: Pt declines help at this time PFSH All Active Problems History of diabetes mellitus (Acute) Hypertension (Chronic) Acute cholecystitis (Acute) Status post reverse total arthroplasty of left shoulder (Acute) History of coronary artery stent placement (Chronic) Coronary artery disease (Chronic) Hypothyroidism (Chronic) Shortness of breath (Acute) Aortic regurgitation (Acute) High risk medication use (Acute) Chest pain (Acute) Weakness (Acute) Arthritis of left glenohumeral joint (Acute) Bursitis of left shoulder (Acute) Post-acute sequelae of COVID-19 (PASC) (Acute) Brain fog (Acute) Sacroiliac joint dysfunction of right side (Acute) Medical History Radicular syndrome of lower limbs Urinary frequency Sweating abnormality Dizziness Lower back pain Spongiotic dermatitis Hypertension Muscle cramps Sleep apnea GERD (gastroesophageal reflux disease) Left shoulder pain COVID Dyspnea Hiatal hernia Renal insufficiency Tendonitis of left rotator cuff Biceps tendinitis of left shoulder Depression Subacromial bursitis Bright red blood per rectum Chest pressure Chest fullness Skin lesion Psoriasis Osteopenia Hyperlipidemia H pylori ulcer Anxiety disorder B12 deficiency Chronic low back pain Fatigue Elevated blood pressure reading Dyspnea on exertion Hx of cardiac catheterization x2 stents Hx of depression headache Insomnia Surgical History Hx of cataract removal with insertion of prosthetic lens H/O colonoscopy Colonoscopy - MAC (11/25/16) Social History Smoking/Tobacco Use Status: Former Tobacco Use tobacco type: cigarettes Quit Date: 02/24/87 Smoking risk assessment performed?: Yes Alcohol Intake: current Alcohol Intake frequency: a few times a week Alcohol type: beer, wine and hard liquor Drug use: Occasionally Substance use type: marijuana Details: Marijuana cookie daily at bedtime: t-2. Alcohol: t-1, one drink Housing: other Education Level: vocational ([employer]) Current gender identity: female Do you feel safe at home: Yes Do you feel safe in your relationship?: Yes Readmission Within the Past 30 Days Yes or No: No
[2024-10-14 08:57] LABS: Troponin I 49 ng/L (<or=51)
[2024-10-14] MEDS: Normal Saline 1,000 ML 125 ML IV (10:52)
--- NOTE | 2024-10-14 11:44 | W.ANESPRE ---
General Info Date of Service Date Performed: 10/14/24 Height: 5 ft 3 in Weight: 82.1 kg Body Mass Index (BMI): 32.1 Surgical Procedure: Operation Date: 10/14/24 13:25 Proposed Procedure Side Surgeon p Cholecystectomy Laparoscopic Ashley Rao MD Meds Allergies and Home Medications Allergies Allergy/AdvReac Type Severity Reaction Status Date / Time broccoli Allergy Severe Other (See Verified 08/13/23 09:57 Comment) cauliflower Allergy Severe Other (See Verified 08/13/23 09:57 Comment) mustard Allergy Severe Other (See Verified 08/13/23 09:57 Comment) peanut Allergy Severe Other (See Verified 08/13/23 09:57 Comment) soy Allergy Severe Other (See Verified 08/13/23 09:57 Comment) tree nut Allergy Severe Other (See Verified 08/13/23 09:57 Comment) legumes Allergy Other (See Unverified 08/13/23 09:57 Comment) lettuce Allergy Other (See Unverified 08/13/23 09:57 Comment) Sulfa (Sulfonamide Allergy Other (See Verified 08/13/23 09:57 Antibiotics) Comment) tomato Allergy Other (See Unverified 08/13/23 09:57 Comment) venlafaxine HCl (From Allergy Other (See Verified 08/13/23 09:57 Effexor) Comment) grapes Allergy Severe Other (See Uncoded 08/13/23 09:57 Comment) exercise induce anaphylaxis AdvReac Other (See Uncoded 08/13/23 09:57 Comment) Home Medication ?Medication ?Instructions ?Recorded epinephrine 0.3 mg/0.3 mL 0.3 mg IM ONCE 09/23/12 injection, auto-injector (EpiPen 2-Chong) vitamins A,C,X-wflj-dalypl 2,148 1 ea PO DAILY 09/23/12 mcg-113 mg-45 mg-17.4 mg tablet (PreserVision AREDS) aspirin 81 mg chewable tablet 81 mg PO DAILY ##30 11/17/15 calcium 600 mg (as 1 ea PO DAILY 09/12/17 carbonate)-vitamin D3 5 mcg (200 unit) tablet (Calcium 600 + D(3)) pantoprazole 40 mg tablet,delayed 40 mg PO DAILY 09/12/17 release paroxetine HCl 30 mg tablet (Paxil) 30 mg PO DAILY 09/12/17 atorvastatin 40 mg tablet 40 mg PO DAILY 08/22/21 lisinopril 20 mg tablet 20 mg PO BID 08/22/21 nitroglycerin 0.4 mg sublingual 0.4 mg sublingual PRN #30 tabs 08/23/21 tablet clonidine HCl 0.1 mg tablet 0.1 mg PO ONCE PRN hypertensive 07/23/22 emergency cyanocobalamin (vitamin B-12) 1,000 mcg IJ .Every 3 weeks 07/23/22 1,000 mcg/mL injection solution clonazepam 0.5 mg tablet 0.5 mg PO DAILY PRN 09/26/22 gabapentin 100 mg capsule 200 mg PO QHS PRN 09/26/22 levothyroxine 75 mcg tablet 75 mcg PO DAILY 09/26/22 (Unithroid) meclizine 25 mg tablet (Dramamine 25 mg PO BID PRN 09/26/22 (meclizine)) acetaminophen 500 mg capsule 1,000 mg PO 10/24/22 ibuprofen 400 mg tablet 400 mg PO TID 10/24/22 cholecalciferol (vitamin D3) 10 10 mcg PO DAILY 11/06/22 mcg (400 unit) capsule Current Visit Medications: Current Medications Generic Name Dose Route Start Last Admin Trade Name Freq PRN Reason Stop Dose Admin Acetaminophen 650 mg 10/14/24 05:51 Acetaminophen 325 Mg Tab PO Q4H PRN PRN Albuterol/Ipratropium 3 ml 10/14/24 05:55 Albuterol/Ipratropium 3 Ml Upd Vial UPD Q4H PRN PRN Dextrose 0 gm 10/14/24 05:59 Glucose Oral Gel 15 Gm/37.5 Gm Tube PO DIRECTED PRN Dextrose/Water 0 gm 10/14/24 05:59 Dextrose 50%-Water 25 Gm/50 Ml Syr IVP DIRECTED PRN Hydromorphone HCl 1 mg 10/14/24 10:52 Hydromorphone 2 Mg/Ml Syr IVP Q4H PRN PRN Sodium Chloride 1,000 mls @ 125 mls/hr 10/14/24 06:45 10/14/24 10:52 Saline 1000ml Bag IV 125 mls/hr [facility] Administration IV Miscellaneous Supplies 1 each 10/14/24 06:00 Iv Access IV DIRECTED [facility] Insulin Aspart 0 units 10/14/24 08:00 10/14/24 08:07 Insulin Aspart 300 Units/3 Ml Pen SC 1 unit 0800,1200,1700 DEMETRIO Administration Protocol Losartan Potassium 50 mg 10/14/24 08:30 10/14/24 09:24 Losartan 50 Mg Tab PO Not Given DAILY DEMETRIO Polyethylene Glycol 17 gm 10/14/24 05:51 Polyethylene Glycol 3350 17 Gm Packet PO DAILY PRN PRN Constipation Sodium Chloride 0 ml 10/14/24 05:51 Normal Saline Flush 10 Ml Syr IVP PRN PRN Sodium Chloride 0 ml 10/14/24 08:30 10/14/24 08:15 Normal Saline Flush 10 Ml Syr IVP 40 ml BID DEMETRIO Administration Sodium Chloride 0 ml 10/14/24 05:51 Normal Saline 10 Ml Vial IJ DIRECTED PRN PFSH Active Problems Active Problems: Problem Status Onset Code History of diabetes mellitus Acute Z86.39 Hypertension Chronic I10 Acute cholecystitis Acute K81.0 Status post reverse total arthroplasty of left shoulder Acute Z96.612 History of coronary artery stent placement Chronic Coronary artery disease Chronic Hypothyroidism Chronic Shortness of breath Acute R06.02 Aortic regurgitation Acute I35.1 High risk medication use Acute Z79.899 Chest pain Acute R07.9 Weakness Acute R53.1 Arthritis of left glenohumeral joint Acute M19.012 Bursitis of left shoulder Acute M75.52 Post-acute sequelae of COVID-19 (PASC) Acute U09.9 Brain fog Acute R41.89 Sacroiliac joint dysfunction of right side Acute M53.3 Medical History Medical History Radicular syndrome of lower limbs Urinary frequency Sweating abnormality Dizziness Lower back pain Spongiotic dermatitis Hypertension Muscle cramps Sleep apnea GERD (gastroesophageal reflux disease) Left shoulder pain COVID Dyspnea Hiatal hernia Renal insufficiency Tendonitis of left rotator cuff Biceps tendinitis of left shoulder Depression Subacromial bursitis Bright red blood per rectum Chest pressure Chest fullness Skin lesion Psoriasis Osteopenia Hyperlipidemia H pylori ulcer Anxiety disorder B12 deficiency Chronic low back pain Fatigue Elevated blood pressure reading Dyspnea on exertion Hx of cardiac catheterization x2 stents Hx of depression headache Insomnia Surgical History Surgical History Hx of cataract removal with insertion of prosthetic lens H/O colonoscopy Colonoscopy - MAC (10/02/17) Tobacco Smoking/Tobacco Use Status: Former Tobacco Use Alcohol Alcohol Intake: current Alcohol intake frequency: a few times a week Alcohol type: beer, wine and hard liquor Substance Use Substance use: Occasionally Substance use type: marijuana Details: Marijuana cookie daily at bedtime: t-2. Alcohol: t-1, one drink Vital Signs and Lab Results Vital Signs Most Recent Vital Signs in EMR: Most Recent Vital Signs Temp Pulse Resp BP Pulse Ox 37 C 70 18 144/65 H 96 10/14/24 07:28 10/14/24 07:28 10/14/24 07:28 10/14/24 07:28 10/14/24 07:28 Point of Care Results Point of Care Results: Finger Stick Blood Glucose 144 10/14/24 08:07 Lab Results 10/14/24 03:22 10/14/24 03:22 Complete Blood Count: WBC, (4.4-10.8) 12.30 10^3/uL H Today, 03:22 RBC, (3.93-5.22) 4.69 10^6/uL Today, 03:22 Hgb, (11.2-15.7) 14.8 g/dL Today, 03:22 Hct, (36.0-46.0) 44.3 % Today, 03:22 Plt Count, (130-400) 273 10^3/uL Today, 03:22 VBG Lactate, (<or=2.0) 2.8 mmol/L H* Today, 05:35 Complete Metabolic Panel: Sodium, (136-145) 141 mmol/L Today, 03:22 Potassium, (3.5-5.1) 3.7 mmol/L Today, 03:22 Chloride, (98-107) 101 mmol/L Today, 03:22 Carbon Dioxide, (21.0-32.0) 27.5 mmol/L Today, 03:22 BUN, (7-18) 20 mg/dL H Today, 03:22 Creatinine, (0.55-1.02) 1.1 mg/dL H Today, 03:22 Est GFR (CKD-EPI 2020), (mL/min/1.73m2) 50.48 Today, 03:22 Magnesium, (1.8-2.4) 2.0 mg/dL Today, 03:22 Calcium, (8.5-10.1) 9.7 mg/dL Today, 03:22 Albumin, (3.4-5.0) 4.3 g/dL Today, 03:22 Glucose, (74-106) 175 mg/dL H Today, 03:22 Hemoglobin A1c, (<5.7) 5.5 % Today, 04:34 Liver Function Panel: ALT, (14-59) 28 U/L Today, 03:22 AST, (15-37) 25 U/L Today, 03:22 Coagulation Panel: INR, (0.9-1.1) 1.0 Today, 03:22 PT, (9.1-11.1) 10.1 sec Today, 03:22 APTT, (20.6-30.2) 22.4 sec Today, 03:22 Cardiac Panel: Troponin I, (<or=51) 49 ng/L Today NT-Pro-B Natriuret Pep, (<300) 284 pg/mL Today Pancreas Panel: Lipase, (<78) 31 U/L Today, 03:22 Imaging and Studies Imaging and Studies Study information below may be from another EMR and interpreted by another provider. Please see original notes in EMR for more complete details. EKG Summary: DATE/TIME OF SERVICE: 08/22/211810 : 1945ERFORMING LOCATION: [place] APPROVED REPORT Exam: Resting ECG Reason for Exam: chest pain Patient Location: I HR:78 bpm ECG Measurements Heart Rate 78 AXIS IL 179 P 57 QRSd 105 QRS 20 QT 422 T48 QTc 481 Conclusion Sinus rhythm...normal P axis, V-rate 50- 99 Borderline low voltage, extremity leads...all extremity leads <0.6mV Stress Test Summary: 08/23/21: MPI Conclusion Myocardial perfusion is normal without evidence of ischemia or prior infarction EF is calculated at 81%, normal wall motion Echocardiogram Summary: Date of Exam: 07/11/22Sex: F Admission Date: 07/11/22 : 1945 Age: 77 APPROVED REPORT EXAM: Comprehensive 2D, Doppler, and color-flow Echocardiogram Patient Location: Out-Patient Tray Checker: Tala Castaneda RDCS (AE) Indications: Aortic regurgitation, Aortic stenosis Other Information Study Quality: Adequate Conclusion Normal left ventricular wall thickness and chamber size. Ejection fraction is 60%. Wall motion is normal Normal right ventricular size and systolic function Both atria are normal in size Aortic valve is sclerotic and trileaflet. There is mild aortic stenosis. Peak gradient is 25, mean 15 mmHg. Calculated aortic valve area is 1.49 cm??. There is mild to moderate aortic regurgitation Dilated ascending aorta and aortic root Estimated right ventricular systolic pressure is 25 mmHg Pulmonary Function Summary: Date of service: 08/08/22 Time of Service: 12:56 Pulmonary Function Test Result Indications: [facility] Interpretation Spirometry: There is no airflow limitation. There was a 17% decreased in FEV1% with administration of 16 mg/mL methacholine. Lung Volumes: Normal lung volumes Diffusion Capacity: Normal diffusion Airway Pressure: Normal airways resistance Impression Normal pulmonary function testing with a negative methacholine. Clinical Correlation therefore is recommended. Anesthesia Assessment and Plan Anesthesia History Personal History: No History of Anesthesia Complications Family History: No Family History of Anesthesia Complications Exercise Tolerance Exercise Tolerance: Metabolic Equivalents>4 Cardiac & Pulmonary Exam Cardiac Exam: Normal S1/S2 Heart Sounds Pulmonary Exam: Clear Bilateral Breath Sounds Implantable Cardiac Device Does patient have a Pacemaker or an ICD?: No Airway Exam Known Difficult Airway: No Mallampati Class: 2 Mouth Opening: Normal (> 3cm) Thyromental Distance: Less than 3 cm Neck Range of Motion: Full ROM Neck Circumference: Normal Teeth Condition: Normal Dentition ASA Classification ASA Score: ASA 3 Emergency Case?: No NPO Status NPO Status: NPO Clears >2 hours, Solids >8 hours Anesthesia Plan Resuscitation Status: Full Code Anesthesia Technique: General Anesthesia Airway Planned: Endotracheal Tube Monitors Used: Standard Monitors Preoperative Comments:: 79 yo for lap misbah. Sig PMHx: HTN, CAD (RCA stent 2009, LAD stent 2015), chest pain (vasospasm, amlodipine ordered by [facility]), HANDLEY, JULIENNE, GERD, DM, hypothyroid, depression/anxiety. smoker, occ EtOH. ECG: sinus. ECHO: LVEF 59%, mild . Stress: 4.6 METs. No perfusion defects. PFTs: normal. Cath: nonobstructive CAD Previous Anes: - shoulder, glide 3 grade 1. no issues. - colo, prop, natural airway, no issues. Discussed plan of scot YADAV IV. Discussed risks including that she is higher risk as an urgent case, cardiac history, HANDLEY, and that she is requiring oxygen while at rest during this hospitalization.
[2024-10-14] MEDS: HYDROmorphone 2 MG/ML SYR 1 MG IVP (11:49)
--- NOTE | 2024-10-14 11:54 | SCONE_ITS ---
Date of service: 10/14/24 Time of Service: 11:54 Assessment and Plan Assessment and plan (1) Acute cholecystitis: Status: Acute Assessment and plan: Cholecystectomy indicated. No personal history of diabetes but exam does raise concern for gangrenous cholecystitis or hydrops. No sepsis. Discussed laparoscopic cholecystectomy risks, benefits, alternatives, and expectations. Discussed specifically the risks of the pain, bleeding, infection, damage to surrounding structures such as the liver or intestine or common bile duct, bile leak, or the need for open procedure. Discussed that when an open procedure has been needed in the past it has typically been in an acute care setting with acute cholecystitis such as this. Postoperative expectations and weight lifting restriction were discussed. No dietary restrictions postoperatively. The patient asked good questions and verbalized understanding. To the operating room today. COntinue zosyn perioperatively. Mild aortic stenosis and mild to mod aortic regurg on echo last year 2023, normal EF. History of Present Illness History of Present Illness Chief Complaint: cholecystitis Narrative: 79yo F with acute cholecystitis. RUQ pain started yesterday and is constant, severe. Associated with nausea. She feels pain that is barely relieved by medications. wbc mildly elevated but exam with marked upper abd tenderness in er. US was not available so CT was done and shows gb wall thickening, gb distention and pericholecystic fluid. stones were not seen. bile ducts normal. LFT normal. Admitted to hospital and started on abx. US obtained and confirms cholecystitis but no stones seen. PFSH All Active Problems History of diabetes mellitus (Acute) Hypertension (Chronic) Acute cholecystitis (Acute) Status post reverse total arthroplasty of left shoulder (Acute) History of coronary artery stent placement (Chronic) Coronary artery disease (Chronic) Hypothyroidism (Chronic) Shortness of breath (Acute) Aortic regurgitation (Acute) High risk medication use (Acute) Chest pain (Acute) Weakness (Acute) Arthritis of left glenohumeral joint (Acute) Bursitis of left shoulder (Acute) Post-acute sequelae of COVID-19 (PASC) (Acute) Brain fog (Acute) Sacroiliac joint dysfunction of right side (Acute) Medical History Radicular syndrome of lower limbs Urinary frequency Sweating abnormality Dizziness Lower back pain Spongiotic dermatitis Hypertension Muscle cramps Sleep apnea GERD (gastroesophageal reflux disease) Left shoulder pain COVID Dyspnea Hiatal hernia Renal insufficiency Tendonitis of left rotator cuff Biceps tendinitis of left shoulder Depression Subacromial bursitis Bright red blood per rectum Chest pressure Chest fullness Skin lesion Psoriasis Osteopenia Hyperlipidemia H pylori ulcer Anxiety disorder B12 deficiency Chronic low back pain Fatigue Elevated blood pressure reading Dyspnea on exertion Hx of cardiac catheterization x2 stents Hx of depression headache Insomnia Surgical History Hx of cataract removal with insertion of prosthetic lens H/O colonoscopy Colonoscopy - MAC (11/25/16) Social History Smoking/Tobacco Use Status: Former Tobacco Use tobacco type: cigarettes Quit Date: 02/24/87 Smoking risk assessment performed?: Yes Alcohol Intake: current Alcohol Intake frequency: a few times a week Alcohol type: beer, wine and hard liquor Drug use: Occasionally Substance use type: marijuana Details: Marijuana cookie daily at bedtime: t-2. Alcohol: t-1, one drink Housing: other Education Level: vocational ([email or web address]) Current gender identity: female Do you feel safe at home: Yes Do you feel safe in your relationship?: Yes Exam Narrative Exam Narrative: awake, appears uncomfortable eomi, MMM midline trachea, neck is symmetric PULM: normal resp effort, equal chest rise with respiration, no wheezing audible CARDIAC: normal PMI, no jvd, regular rate, normal perfusion abdomen is nondistended. RUq TTP w positive murpheys sign extremities are without deformity, normal movement of all four extremities speech is clear and coherent mood and affect are congruent, no focal neurological deficits skin without rash Results Last Vital Signs Temp 98.6 F 10/14/24 07:28 Pulse 70 10/14/24 07:28 Resp 18 10/14/24 07:28 BP 144/65 H 10/14/24 07:28 Pulse Ox 96 10/14/24 07:28 Labs 10/14/24 03:22 10/14/24 03:22 Labs: Laboratory Results - last 24 hr 10/14/24 10/14/24 10/14/24 03:22 04:34 05:35 WBC 12.30 H RBC 4.69 Hgb 14.8 Hct 44.3 MCV 95 MCH 31.6 MCHC 33.4 RDW 12.8 Plt Count 273 MPV 9.0 Immature Gran % 0.2 Neutrophils % 88.5 Lymphocytes % 8.3 Monocytes % 2.7 Eosinophils % 0.1 Basophils % 0.2 Nucleated RBC % 0.0 Absolute Neutrophils 10.89 H Absolute Lymphocytes 1.02 L Absolute Monocytes 0.33 Absolute Eosinophils 0.01 Absolute Basophils 0.02 PT 10.1 INR 1.0 APTT 22.4 VBG Lactate 3.2 H* 2.8 H* Sodium 141 Potassium 3.7 Chloride 101 Carbon Dioxide 27.5 Anion Gap 12.5 H BUN 20 H Creatinine 1.1 H Est GFR (CKD-EPI 2020) 50.48 Glucose 175 H Hemoglobin A1c 5.5 Calcium 9.7 Magnesium 2.0 Total Bilirubin 0.7 AST 25 ALT 28 Alkaline Phosphatase 110 Troponin I 51 49 NT-Pro-B Natriuret Pep 284 Total Protein 7.9 Albumin 4.3 Lipase 31 Add-On Test Request DONE 10/14/24 06:35 WBC RBC Hgb Hct MCV MCH MCHC RDW Plt Count MPV Immature Gran % Neutrophils % Lymphocytes % Monocytes % Eosinophils % Basophils % Nucleated RBC % Absolute Neutrophils Absolute Lymphocytes Absolute Monocytes Absolute Eosinophils Absolute Basophils PT INR APTT VBG Lactate Sodium Potassium Chloride Carbon Dioxide Anion Gap BUN Creatinine Est GFR (CKD-EPI 2020) Glucose Hemoglobin A1c Calcium Magnesium Total Bilirubin AST ALT Alkaline Phosphatase Troponin I 49 NT-Pro-B Natriuret Pep Total Protein Albumin Lipase Add-On Test Request
[2024-10-14 12:44] LABS: Lab Add On Test DONE
[2024-10-14] MEDS: Lactated Ringers 1,000 ML 30 ML IV (13:04)
[2024-10-14] MEDS: PIPERACILLIN/TAZO 3.375 GM in Normal Saline 50 ML IVPB (13:44)
[2024-10-14] MEDS: Bupivacaine 0.5% Pres-Free W/EPI 30 ML VIAL (13:53)
--- NOTE | 2024-10-14 14:40 | GB_PTH ---
PATIENT: Emani Delong LOC: U#:[id number] AGE/SX: 79/F ROOM: RE10/14/[address]: Reza Bhat : 1945 BED: A DIS: 10/15/2024 SPEC #: [id number] RECD: 10/14/24 16:23 STATUS: MICHELLE REAlona #: [id number] LINDSAY: 10/14/24 14:[address]: Ashley Rao DEPT: Surgical Specimen RECD BY: Pattie Rodriguez ENTERED: 10/14/24 16:24 SP TYPE: GB OTHR DR: Kristyn Whitehead Tissues: 1 - GALLBLADDER Procedures: GROSS AND MICRO LEVEL 3 Comments: [id number]
--- NOTE | 2024-10-14 14:47 | DI.VRAD_ITS ---
PROCEDURE INFORMATION: Exam: CTA Chest With Contrast CTA Abdomen and Pelvis With Contrast Exam date and time: 10/14/2024 3:37 AM Age: 79 years old Clinical indication: Abdominal pain; Epigastric pain ruq ttr. Severe pain. Hypertensive TECHNIQUE: Imaging protocol: Computed tomographic angiography of the chest with contrast. Exam focused on the arteries. Computed tomographic angiography of the abdomen and pelvis with contrast. Exam focused on the arteries. 3D rendering (Not supervised by radiologist): MIP and/or 3D reconstructed images were created by the technologist. Radiation optimization: All CT scans at this facility use at least one of these dose optimization techniques: automated exposure control; mA and/or kV adjustment per patient size (includes targeted exams where dose is matched to clinical indication); or iterative reconstruction. Contrast material: [id number]; Contrast volume: 100 ml; Contrast route: INTRAVENOUS (IV); COMPARISON: CT CHEST PE CTA 08/22/2021 12:03 PM FINDINGS: VASCULATURE: Pulmonary arteries: Normal. No pulmonary emboli. Aorta: No aortic aneurysm. No aortic dissection. Celiac trunk and mesenteric arteries: No occlusion or significant stenosis. Renal arteries: No occlusion or significant stenosis. Right iliac arteries: No occlusion or significant stenosis. Left iliac arteries: No occlusion or significant stenosis. CHEST: Lungs: Unremarkable. No consolidation. No masses. Pleural spaces: Unremarkable. No pneumothorax. No pleural effusion. Heart: Unremarkable. No cardiomegaly. No pericardial effusion. Diaphragm: There is a large hiatal hernia. ABDOMEN AND PELVIS: Liver: Diffuse fatty infiltration of the liver. Focal fatty sparing surrounding the gallbladder fossa. Gallbladder and biliary ducts: There is gallbladder wall thickening and pericholecystic fat stranding and a small volume of pericholecystic fluid. Findings are concerning for acute cholecystitis. No visualized biliary ductal dilatation. Pancreas: Unremarkable. No mass. No ductal dilation. Spleen: Unremarkable. No splenomegaly. Adrenal glands: Unremarkable. No mass. Kidneys and ureters: Unremarkable. No solid mass. No hydronephrosis. Stomach and bowel: Unremarkable. No obstruction. No mucosal thickening. Appendix: No evidence of appendicitis. Intraperitoneal space: Unremarkable. No free air. No significant fluid collection. Urinary bladder: Unremarkable. No mass. Reproductive: Unremarkable as visualized. Lymph nodes: Unremarkable. No enlarged lymph nodes. Bones/joints: Multilevel degenerative change within the lumbar spine. Soft tissues: Unremarkable. IMPRESSION: 1. There is gallbladder wall thickening and pericholecystic fat stranding and a small volume of pericholecystic fluid. Findings are concerning for acute cholecystitis. 2. No evidence of abdominal aortic aneurysm or dissection. Dictated and Authenticated by: Cody Calloway MD. Ordering: Accession#=
--- NOTE | 2024-10-14 15:02 | W.PM.OP ---
Operative Note Operative Note PRE-OP DIAGNOSIS: acute cholecystitis POST-OP DIAGNOSIS: same PROCEDURE: laparoscopic cholecystitis SURGEON: Ashley Rao DOWEL MACHINE OPERATOR: Destinee Tsang ANESTHESIA TYPE: Local By Surgeon and General LMA/ETT Refer to Anesthesia Record ESTIMATED BLOOD LOSS: 50 PATHOLOGY: other (gallbladder) COMPLICATIONS: None Patient's condition: stable Findings: acute cholecystitis, severe Procedure Description: Preoperative diagnosis: Acute cholecystitis Postoperative diagnosis: Acute cholecystitis Procedure: Laparoscopic cholecystectomy Surgeon: Ashley Rao MD Restaurant Assistant: ROGE Quintanilla Anesthesia: GETA + local EBL 50mL Specimen: Gallbladder Complications: None Procedure Description: This is an 79-year-old female who presented to the emergency department for abdominal pain. The evaluation yielded a diagnosis of acute acalculus cholecystitis. I suspect she has stones but that they are not identified on US as she was not critically ill. Cholecystectomy was indicated. We discussed the procedure risks, benefits, alternatives, and expectations. All of the patient's questions were answered to their satisfaction. Informed consent was obtained and the patient was transferred to the operating room. She was placed supine on the operating table. SCDs were placed and all pressure points were padded appropriately. General anesthesia was induced. The abdomen was prepped and draped in the usual sterile fashion. Timeout was performed. Local anesthetic was infiltrated underneath the umbilicus. An incision was made in the skin and the incision carried down to the umbilical stalk using cautery. The umbilical stalk was elevated using a Sarah clamp and the fascia cleared of its fatty tissues. An incision was made in the fascia, and a Aminata clamp was used to enter the peritoneum. A finger was used to ensure no structures were adhered to the anterior abdominal wall. A Christiansen trocar was introduced and the abdomen was insufflated to 15 mmHg. Initial laparoscopy confirmed no injury to the intra-abdominal structures. 3 additional 5 mm ports were placed in the upper abdomen under direct visualization. Local anesthetic was infiltrated at each port site. The patient's head was elevated and she was rotated toward the left. The gallbladder was enlarged and had significant acute inflammatory change including edema and wall thickening. The gallbladder dome was grasped and retracted cephalad. Omental adhesions were taken down bluntly and using the LigaSure device. The infundibulum was grasped and retracted laterally and a dissection in Calots triangle was pursued with a [place] dissector and a suction tool. 2 tubular structures were dissected free and skeletonized. A critical view was obtained and the gallbladder cystic duct and cystic artery were identified and confirmed. The cystic duct and cystic artery were clipped and transected with EndoShears. The gallbladder was then removed from the liver bed with cautery. It was placed into an Endo Catch bag and removed from the abdomen through the umbilicus. The liver bed was examined and hemostasis assured using cautery. All irrigation fluid was suctioned out and the patient taken out of reverse Trendelenburg position. The 5 mm ports were removed and the abdomen was desufflated. The umbilical trocar was removed. The umbilical fascia was closed with an 0 Vicryl suture in a [id number] stitch. The incisions were all closed with interrupted 4-0 Monocryl sutures in subcuticular fashion. The incisions were all washed and dried and Steri-Strips applied. The patient tolerated the procedure well. She extubated in the operating room and transferred to the recovery room in stable condition. There were no complications Date of Procedure: 10/14/24
--- NOTE | 2024-10-14 16:05 | W.ANESPOSTOP ---
Postoperative Evaluation Date, Time and Location Date Performed: 10/14/24 Time Performed: 16:05 Patient Location: PACU Vital Signs Most Recent Imported Vital Signs: Most Recent Vital Signs Temp Pulse Resp BP Pulse Ox 37.2 C 70 19 144/58 H 92 10/14/24 15:45 10/14/24 15:55 10/14/24 15:55 10/14/24 15:55 10/14/24 15:55 Pain Score Most Recent Pain Score: Most Recent Pain Score Pain Level [RUQ] 7 10/14/24 11:12 Pain Level 3 10/14/24 16:00 Assessment Mental Status: Awake (Alert & Oriented to Patient Baseline) Airway and Respiratory Function: Patent airway with normal (patient baseline) respiratory exam (remains on NC O2) Cardiovascular Function: Hemodynamically Stable (Phenyl gtt @ 10 mcg/min. ) Hydration Status: Adequately Hydrated Nausea & Vomiting: No Nausea or Vomiting Pain: Pain is tolerable per patient Peripheral Nerve Block: Patient did not receive a nerve block
[2024-10-15] MEDS: Normal Saline 1,000 ML 125 ML IV (00:01)
[2024-10-15 03:30] VITALS: BP 127/58; PULSE 79; RESP 20; TEMP 36.6; O2SAT 93
[2024-10-15] MEDS: Levothyroxine 88 MCG TAB PO (06:09)
[2024-10-15 06:53] LABS: HCT 37.8 % (36.0-46.0); HGB 12.3 g/dL (11.2-15.7); MCH 32.0 pg (27.0-33.0); MCHC 32.5 % (32.0-36.0); MCV 98 fL (80-95); MPV 9.1 fL (8.0-11.0); Platelet Count 215 10^3/uL (130-400); RBC 3.84 10^6/uL (3.93-5.22); RDW 13.4 % (11.7-14.6); RDW-SD 48.4 fL; WBC 14.38 10^3/uL (4.4-10.8)
[2024-10-15 07:04] LABS: ALT 62 U/L (14-59); AST 46 U/L (15-37); Albumin 3.0 g/dL (3.4-5.0); Alkaline Phosphatase 83 U/L (46-116); Anion Gap 7.3 mmol/L (3-11); BUN 27 mg/dL (7-18); Bilirubin, Total 0.7 mg/dL (0.2-1.0); CO2 28.7 mmol/L (21.0-32.0); Calcium 8.7 mg/dL (8.5-10.1); Chloride 106 mmol/L (98-107); Estimated GFR 50.48 (mL/min/1.73m2); Glucose 123 mg/dL (74-106); Magnesium 2.1 mg/dL (1.8-2.4); Potassium 3.9 mmol/L (3.5-5.1); Sodium 142 mmol/L (136-145); Total Protein 6.7 g/dL (6.4-8.2)
[2024-10-15] MEDS: Pantoprazole 40 MG TABCR PO (07:12)
[2024-10-15] MEDS: Normal Saline Flush 10 ML SYR IVP (07:13)
[2024-10-15 07:28] VITALS: BP 140/92; PULSE 74; TEMP 36.6; O2SAT 91
--- NOTE | 2024-10-15 07:58 | RESPIRATORY ---
Pt advised she has a ResMed AirSense 10 CPAP that she uses every night. Unsure of DME or settings. Will have bring in later today if not being discharged.
[2024-10-15 08:00] VITALS: O2SAT 87
[2024-10-15] MEDS: Preservision CAPSULE 1 CAP PO (08:30)
[2024-10-15] MEDS: PARoxetine 10 MG TAB 30 MG PO (08:30)
[2024-10-15] MEDS: Acetaminophen 500 MG TAB 1000 MG PO (08:50)
--- NOTE | 2024-10-15 10:04 | W.PM.DS.N ---
Date of service: 10/15/24 Time of Service: 10:04 DS: Diagnosis Discharge Diagnosis (1) Acute cholecystitis: Status: Resolved Discharge Plan Disposition Patient Disposition: Home Condition: Good Discharge Details Reason For Visit: cholecystitis Admit Date/Time: 10/14/24 05:51 Admit Provider: Reza Bhat Attending Provider: Reza Bhat Primary Care Provider: Kristyn Whitehead V Hospital Course Hospital Course: Patient initially presented with signs and symptoms consistent with acute cholecystitis with acute onset of right upper quadrant pain with nausea and vomiting. Imaging was highly suggestive for acute cholecystitis and patient had surgical lap cholecystectomy on 10/14/2024 without complication. She tolerated the procedure well, and had complete resolution of her pain. Ultimately, was determined she was stable for discharge home. Home Meds and New Rx's Prescriptions: Continued gabapentin 100 mg capsule 200 mg PO QHS PRN clonazepam 0.5 mg tablet 0.5 mg PO DAILY PRN clonidine HCl 0.1 mg tablet 0.1 mg PO ONCE PRN (Reason: hypertensive emergency) cholecalciferol (vitamin D3) 10 mcg (400 unit) capsule 10 mcg PO DAILY epinephrine [EpiPen 2-Chong] 0.3 MG/0.3 ML auto-injector 0.3 mg IM ONCE PreserVision AREDS 1 EACH tablet 1 ea PO DAILY aspirin 81 MG tablet,chewable 81 mg PO DAILY Qty: 30 levothyroxine 88 mcg tablet 88 mcg PO DAILY Patient Comments: TAKE 1 TABLET BY MOUTH EVERY DAY losartan 50 mg tablet 50 mg PO DAILY Patient Comments: TAKE 1 TABLET BY MOUTH EVERY DAY. calcium carbonate-vitamin D3 [Calcium 600 + D(3)] 1 EACH tablet 1 ea PO DAILY paroxetine HCl [Paxil] 30 MG tablet 30 mg PO DAILY pantoprazole 40 MG tablet,delayed release (DR/EC) 40 mg PO DAILY cyanocobalamin (vitamin B-12) 1,000 mcg/mL solution 1,000 mcg IJ .Every 3 weeks atorvastatin 40 mg tablet 40 mg PO DAILY nitroglycerin 0.4 MG tablet, sublingual 0.4 mg Sublingual PRN Qty: 30 0RF acetaminophen 500 mg Capsule 1,000 mg PO PRN ibuprofen 400 mg Tablet 400 mg PO TID Discontinued lisinopril 20 mg tablet 20 mg PO BID Discharge Instructions Additional Instructions: Shower on 10/16/34. Wash gently over steri-strips with soapy hands, rinse, pat dry. Don't peel strips or submerge them under water. The longer they stay on, the nicer the scars will heal. Ok to walk, climb stairs, and resume normal activities of daily living. Do not lift/push/pull more than 20lb for 4 weeks. Diet as tolerated, allow your body to naturally make adjustments in the bile flow after surgery. Eat your normal diet. Loose stools may occur. We will discuss them at follow up if still present in 2 weeks. Call or return for fever or incisional problems. FOLLOW UP IN DR HARMON'S OFFICE - OFFICE WILL CALL WITH APPOINTMENT. Stand Alone Forms: Nursing Discharge Form Referrals: Kristyn Whitehead MD [Primary Care Provider, Medicine] Referral Note: Call to schedule appointment with in 5-7 days. Activity:: Activity as Tolerated Equipment/Supplies:: No Equipment Needed Diet:: As Tolerated Discharge Orders Discharge Orders: Discharge Order (Routine); Ordered 10/15/24 Ordered By: David Ruiz Discharge Data Discharge Date/Time-TO BE ENTERED AT DEPARTURE: 10/15/24 11:30 DS: Summary Time Spent with Patient providing and/or coordinating discharge services: Greater than 30 minutes Status at Discharge Functional status at discharge: independent ambulation Overall status at discharge: patient is back to baseline Mental Status: mental status grossly normal Speech and Movement: speech and movement normal Mood: congruent mood Affect: normal affect Quality:SDOH Health Related Social Needs: Health related social needs lonely/isolated Health related social needs details Pt declines help at this time Health related social needs details: Pt declines help at this time Exam Narrative Exam Narrative: Well-appearing older female laying in bed in no acute distress, ANO x 4, heart regular rhythm, lungs good auscultation bilaterally, abdomen soft, with minimal diffuse tenderness, surgical incision site bandaged without surrounding erythema or drainage Psych Mental Status: mental status grossly normal Speech and Movement: speech and movement normal Mood: congruent mood Affect: normal affect DS: Data Vitals/I&O Vitals and I&O: Vital Signs Temperature 97.9 F 10/15/24 07:28 Temperature Source Tympanic 10/15/24 07:28 Pulse 74 10/15/24 07:28 Pulse Rhythm Regular 10/14/24 07:28 Pulse 70 10/14/24 16:40 Respiratory Rate 20 10/15/24 03:30 Respiratory Effort Normal, Non-Labored 10/14/24 07:28 Respiratory Depth Normal 10/14/24 07:28 Respiratory Pattern Normal 10/14/24 07:28 Blood Pressure 140/92 H 10/15/24 07:28 Blood Pressure Mean 108 10/15/24 07:28 Pulse Oximetry 87 L 10/15/24 08:00 Respiratory End-tidal CO2 39 10/14/24 16:40 Oxygen Delivery Method Nasal Cannula 10/15/24 08:00 Oxygen Flow Rate 1 10/15/24 08:00 Pain Level 7 10/15/24 09:12 Comment Notified provider of 90% O2 10/14/24 04:25 Intake & Output 10/14/24 10/15/24 10/15/24 17:59 05:59 17:59 Intake Total 614.206 / 973.509 6066 / 4203.426 3472 / 1490 Output Total 450 / 450 Balance 164.206 / 201.501 6258 / 0503.810 2219 / 1490 Weight 180 lb 15.992 oz Intake: IV 614.206 / 914.458 7507 / 9553.442 5979 / 1010 Oral 220 / 220 480 / 480 Output: Urine 400 / 400 Estimated Blood Loss 50 / 50 Other: Urine Color Pale Urine Appearance Clear Clear Urine Odor None Comment Pt voided into toilet, not measured. Pt reports voiding independently into toilet. Not measured. Emesis Description None Data Completed and Pending Labs on day of discharge: Labs from last 24 hours 10/15/24 10/14/24 06:27 Unknown WBC 14.38 H RBC 3.84 L Hgb 12.3 D Hct 37.8 MCV 98 H MCH 32.0 MCHC 32.5 RDW 13.4 Plt Count 215 MPV 9.1 Sodium 142 Potassium 3.9 Chloride 106 Carbon Dioxide 28.7 Anion Gap 7.3 BUN 27 H Creatinine 1.1 H Est GFR (CKD-EPI 2020) 50.48 Glucose 123 H Calcium 8.7 Magnesium 2.1 Total Bilirubin 0.7 AST 46 H ALT 62 H Alkaline Phosphatase 83 Total Protein 6.7 Albumin 3.0 L Add-On Test Request DONE PFSH All Active Problems (Updated 10/16/24 @ 00:00 by ROHINI CHAUDHRY) History of diabetes mellitus (Acute) Hypertension (Chronic) Status post reverse total arthroplasty of left shoulder (Acute) History of coronary artery stent placement (Chronic) Coronary artery disease (Chronic) Hypothyroidism (Chronic) Shortness of breath (Acute) Aortic regurgitation (Acute) High risk medication use (Acute) Chest pain (Acute) Weakness (Acute) Arthritis of left glenohumeral joint (Acute) Bursitis of left shoulder (Acute) Post-acute sequelae of COVID-19 (PASC) (Acute) Brain fog (Acute) Sacroiliac joint dysfunction of right side (Acute) Medical History Radicular syndrome of lower limbs Urinary frequency Sweating abnormality Dizziness Lower back pain Spongiotic dermatitis Hypertension Muscle cramps Sleep apnea GERD (gastroesophageal reflux disease) Left shoulder pain COVID Dyspnea Hiatal hernia Renal insufficiency Tendonitis of left rotator cuff Biceps tendinitis of left shoulder Depression Subacromial bursitis Bright red blood per rectum Chest pressure Chest fullness Skin lesion Psoriasis Osteopenia Hyperlipidemia H pylori ulcer Anxiety disorder B12 deficiency Chronic low back pain Fatigue Elevated blood pressure reading Dyspnea on exertion Hx of cardiac catheterization x2 stents Hx of depression headache Insomnia Surgical History Hx of cataract removal with insertion of prosthetic lens H/O colonoscopy Colonoscopy - MAC (11/25/16) Social History Smoking/Tobacco Use Status: Former Tobacco Use tobacco type: cigarettes Quit Date: 02/24/87 Smoking risk assessment performed?: Yes Alcohol Intake: current Alcohol Intake frequency: a few times a week Alcohol type: beer, wine and hard liquor Drug use: Occasionally Substance use type: marijuana Details: Marijuana cookie daily at bedtime: t-2. 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
--- NOTE | 2024-10-15 10:19 | PDOC.CMDIS ---
Date of service: 10/15/24 Time of Service: 10:26 LACE Index Scoring Tool Questions: Length of Stay (in days): 1 Was the patient admitted via the E.D.?: Yes Comorbidities: Diabetes w/o Complication E.D. Visits: 1 Answers: Total Score: 6 Risk of Readmission: Low Risk Care Management Discharge Plan Reason for Hospitalization: cholecystitis Discharge Plan: Emani was pleasant, willing to engage in conversation and excited to go home. She states her colonoscopy yesterday went well and she has been cleared to eat whatever she wants by her surgeon. Emani continues to have O2 NC running. Emani states she is fairly independent at home and does not think she will need any home services at home. She is living in [place] with her and they both enjoy traveling to visit her son in [place]. Emani will discharge home today with no new services indicated. It is recommended that she will follow up with her community providers and continue per her plan of care. She may require follow up with general surgery. Emani will be transported via private vehicle by her . Patient/Family Education Needs: Review of discharge instruction, activity, limitations, and plan of care. Discuss ask me three SDOH Health Related Social Needs: Health related social needs lonely/isolated Health related social needs details Pt declines help at this time Health related social needs details: Pt declines help at this time
== END 2024-10-15 11:30 | disposition home or self-care (01) ==
LOC: ER 06:52 → MS 06:55
PROVIDERS: Surgery; Admitting Provider Family Medicine; Emergency Provider Student in an Organized Health Care Education/Training Program; PCP Family Medicine; Responsible Provider Family Medicine; Visit Provider Family Medicine
PROC: 0FT44ZZ Resection of Gallbladder, Percutaneous Endoscopic Approach (ICD-10-PCS; CPT 47562; principal; 2024-10-14 13:15)
DX: K81.0 Acute cholecystitis (principal); I10 Essential (primary) hypertension; I35.2 Nonrheumatic aortic (valve) stenosis with insufficiency; Z96.612 Presence of left artificial shoulder joint; I25.10 Atherosclerotic heart disease of native coronary artery without angina pectoris; E03.9 Hypothyroidism, unspecified; Z95.5 Presence of coronary angioplasty implant and graft; K21.9 Gastro-esophageal reflux disease without esophagitis; K44.9 Diaphragmatic hernia without obstruction or gangrene; F32.A Depression, unspecified; G47.00 Insomnia, unspecified; G89.29 Other chronic pain; E53.8 Deficiency of other specified B group vitamins; E78.5 Hyperlipidemia, unspecified; F41.9 Anxiety disorder, unspecified; Z79.899 Other long term (current) drug therapy; R45.89 Other symptoms and signs involving emotional state
CPT/HCPCS: 47562; 00123; 36415; 71275; 80048; 80053; 83690; 85027; 93005; 96361; 96365; 96366; 96375; 96376; 99222; 99285; 74174; 76705; 82040; 82247; 83036; 83605; 83735; 83880; 84075; 84155; 84450; 84460; 84484; 85025; 85610; 85730; 88304; 93010; 94760; 99238; G0378; J0131; J1100; J1171; J1815; J2270; J2371; J2405; J2543; J2704; J3010; J3490

== ENCOUNTER 2024-11-03 02:32 | Outpatient (CLI) | payer MEDICARE, SELFPAY ==
--- NOTE | 2024-11-03 15:13 | DI.CT_ITS ---
Exam(s) CT CHEST HIGH RESOLUTION EXAM: CT CHEST HIGH RESOLUTION CLINICAL HISTORY: HANDLEY R06.09. TECHNIQUE: Multi planar reconstructions were performed. CONTRAST MATERIAL: None COMPARISON: CT CT THORAX ABD/PEL CTA from 10/14/2024 FINDINGS: CHEST: LUNGS: There are no confluent infiltrates nor pleural effusions. There is a benign calcified granuloma in the left lower lobe measuring 3 mm. There is another nodule (noncalcified) in the left lung which is in the posterior segment of the left lower lobe, measuring 3-4 mm. There are no significant nodules in the opposite-right lung. There are no significant findings in trachea and mainstem bronchi. No true bronchiectasis evident. Large hiatal hernia as described below. There is some mild atelectatic markings in the lung bases adjacent to this large hiatal hernia. High-resolution images reveals minimal if any significant interstitial disease MEDIASTINUM: There is no obvious hilar nor mediastinal adenopathy. Visualized thyroid unremarkable.There is a prominent hiatal hernia which measures 8 cm wide by 4 cm AP by 6.5 cm craniocaudal. Approximately half of the stomach is in the chest. CARDIAC: Heart size is normal. There is no pericardial effusion.The diameter of the ascending thoracic aorta is slightly prominent measuring 3.9 cm. Cannot assess for dissection without IV contrast. There is no pericardial effusion. VISUALIZED UPPER ABDOMEN:No adrenal masses. The gallbladder surgically absent. CBD is not dilated. Spleen size normal. OSSEOUS: No significant osseous lesions.No fractures.. Left shoulder prosthesis again noted. IMPRESSION: 1. There is a large retrocardiac hiatal hernia measuring approximately 8 x 4 x 6.5 cm. Apparently over half of the patient's stomach is in the chest and there are atelectatic markings in both lung bases adjacent to this large hiatal hernia. 2. Two benign-appearing small nodules in the left lower lobe, 1 of which is a small calcified granuloma. 3. No confluent infiltrates and no pleural effusions. Minimal if any significant interstitial lung disease. There are no bullae evident RADIATION DOSE DELIVERED: 456.61mGy.cm Total DLP DATA REPOSITORY: All CT scans at this facility are submitted to the National Radiology Data Registry (NRDR) Dose Index Registry (DIR) with the [employer] ([employer]). RADIATION OPTIMIZATION: All CT scans at this facility use at least one of these dose optimization techniques: automated exposure control; mA and/or kV adjustment per patient size (includes targeted exams where dose is matched to clinical indication); or iterative reconstruction.
== END 2024-11-03 02:52 ==
PROVIDERS: PCP Family Medicine; Visit Provider Family Medicine
DX: R06.09 Other forms of dyspnea (principal); K44.9 Diaphragmatic hernia without obstruction or gangrene
CPT/HCPCS: 71250; 93306

== ENCOUNTER 2024-11-03 02:32 | Outpatient (CLI) | payer MEDICARE, SELFPAY ==
--- NOTE | 2024-11-03 13:30 | DI.US_ITS ---
APPROVED REPORT EXAM: Comprehensive 2D, Doppler, and color-flow Echocardiogram Patient Location: Out-Patient Project Asst: Kaiden Carty RDCS (AE) Indications: Aortic stenosis, dyspnea Other Information Study Quality: Adequate. Technically limited study due to body habitus. Conclusion Left ventricle is small. EF is 60 to 65%. Wall motion is hyperdynamic Normal right ventricular size and function Both atria are normal in size Aortic valve is sclerotic and trileaflet. There is mild aortic regurgitation. There is mild aortic stenosis. Peak gradient is 30, mean 20 mmHg. Calculated aortic valve area is 1.8 cm?? Estimated right ventricular systolic pressure is 22 mmHg Wall motion Left Ventricle Left ventricular cavity is small. The left ventricular systolic function is normal. The left ventricular ejection fraction is within the normal range. There is normal left ventricular wall thickness. Left ventricle is hypercontractile There is no ventricular septal defect visualized. LVEF is 60-65%. Right Ventricle The right ventricle is normal size. The right ventricular systolic function is normal. Atria The left atrium size is normal. The right atrium size is normal. The interatrial septum is intact with no evidence for an atrial septal defect. Aortic Valve The aortic valve is sclerotic. Aortic valve is trileaflet. Mild aortic stenosis. Peak aortic valve gradient is 30.69 mmHg. Highest mean aortic valve gradient is 20.0 mmHg. Calculated VY by the continuity equation is 1.8 cm2. Mild aortic regurgitation. Mitral Valve The mitral valve is normal in structure. No evidence of mitral valve stenosis. Trace mitral regurgitation. Tricuspid Valve The tricuspid valve is normal in structure. There is no tricuspid valve stenosis. Mild tricuspid regurgitation. The RVSP is 21.8 mmHg. Pulmonic Valve The pulmonary valve is normal in structure. There is no pulmonic valvular stenosis. Trace pulmonic regurgitation. Great Vessels The ascending aorta is normal in size. Aortic arch is normal in caliber. IVC is normal in size and collapses >50% with inspiration. Pericardium There is no pericardial effusion. 2D Dimensions IVSD d PLAX 1.54 cm F: 0.6-1.0 Ao Root d 3.53 cm F: 2.7 - 3.3 LVPW d PLAX 1.28 cm F: 0.6 - 1.0 Ao Asc Diam d 3.22 cm F: 2.3 - 3.1 LVID d PLAX 3.11 cm F: 3.8 - 5.2 LVDs 2.23 cm F: 2.2 - 3.5 LV EF Teichholz 56.3 % FS 28.40 % LV EDV (Teich) 38.2 mL LV ESV (Teich) 16.7 mL Stroke Vol Index (Teich) 11.63 M-Mode TAPSE 1.91 cm (M/F) >1.7 Auto EF LV EDV A4C 81.1 mL LV EDV A2C 65.6 mL LV EDV BP 74.9 mL LV ESV A4C 34.3 mL LV ESV A2C 28.9 mL LV ESV BP 30.9 mL LVEF(%) A4C 57.7 % LVEF(%) A2C 56.0 % LVEF(%) BP 58.7 % LV SV A4C 46.8 ml LV SV A2C 36.7 ml LV SV BP 44.0 ml LV CO A4C 3.2 L/min LV CO A2C 2.4 L/min LV CO BP 2.8 L/min HR A4C 68.97 BPM HR A2C 65.22 BPM LV EDV Index (BP) LA Volume LA Length A4C 5.0 cm LA Length A2C 4.9 cm LA Area A4C s 14.24 cm2 LA Area A2C s 7.21 cm2 LA Vol A4C A-L 34.50 mL LA Vol A2C A-L 8.97 mL LA Vol Biplane A-L 17.7 mL LA Vol/BSA A4C A-L LA Vol/BSA A2C A-L LA Vol/BSA BP A-L 9.6 mL/m2 LA Vol A4C MOD 32.7 mL LA Vol A2C MOD 8.9 mL LA Vol BP MOD 16.9 mL RA Volume RA Area A4C 8.0 cm2 RA ESV A4C (A-L) 12.4mL RA Vol/BSA A4C A-L RA Length A4C 4.4 cm RA ESV A4C (MOD) 11.9mL LV Diastology MV E' medial 0.046 (>0.07 m/s) MV E Vmax 0.87 (0.4-1.3 m/s) MV E/E' MED 18.87 (<14) MV A Vmax 1.20 (0.4-1.3 m/s) MV E' lateral 0.061 (>0.1 m/s) E/A Ratio 0.7 MV E/E' LAT 14.23 (<14) MV E' Average 0.054 m/s MV E/E'(average) 16.23 Aortic Valve AoV Vmax 2.77 m/s LVOT Vmax 1.20 m/s AoV Peak Grad 63.6 mmHg LVOT Peak Grad 5.8 mmHg AoV Area (Vmax) 1.36 cm2 LVOT VTI 0.281 m AoV VTI 0.488 m LVOT Mean Grad 3.3 mmHg AoV Mean Benson. 2.11 m/s LVOT SV 87.82 mL AoV Mean Grad 20.1 mmHg LVOT Diam s 1.95 cm AoV Area (VTI) 1.80 cm2 AV Regurg Peak Gr. 30.69 mmHg Velocity Ratio 0.43 AR Decel [place] 1.9m/sec2 AR DT 2606 msec AR PHT 756 msec AR Vmax 4.92 m/s Mitral Valve MV DT 311 (160-240 msec) Pulmonary Valve PV Vmax 1.09 (0.5-1.5 m/s) RVOT Vmax 0.91 m/s PV Peak Grad 4.7 mmHg RVOT Peak Gr. 3.3 mmHg PV Mean Benson 0.69 m/s RVOT VTI 0.162 m PV Mean Grad 2.3 mmHg RVOT Mean Gr. 1.8 mmHg Tricuspid Valve RA Pressure 3.00 mmHg TR Vmax 2.17 m/s TR Peak Grad 18.8 mmHg RVSP (TR) 21.8 mmHg
== END 2024-11-03 02:52 ==
LOC: DI 02:32
PROVIDERS: PCP Family Medicine; Visit Provider Internal Medicine Cardiovascular Disease
DX: I35.0 Nonrheumatic aortic (valve) stenosis (principal)
CPT/HCPCS: 93306

== ENCOUNTER → 2024-11-05 10:13 | Outpatient (BNVA) | payer MEDICARE, SELFPAY | PROVIDERS: PCP Family Medicine; Referring Provider Family Medicine; Visit Provider Surgery | DX: Z98.890 Other specified postprocedural states (principal); Z90.49 Acquired absence of other specified parts of digestive tract | CPT/HCPCS: 99024 ==

== ENCOUNTER → 2024-11-12 11:30 | Outpatient (BNVA) | payer MEDICARE, SELFPAY | PROVIDERS: PCP Family Medicine; Referring Provider Family Medicine; Visit Provider Surgery | DX: T81.41XA Infection following a procedure, superficial incisional surgical site, initial encounter (principal); K81.0 Acute cholecystitis | CPT/HCPCS: 99213 ==

== ENCOUNTER → 2024-12-08 12:49 | Outpatient (BNVA) | payer MEDICARE, SELFPAY | PROVIDERS: PCP Family Medicine; Referring Provider Family Medicine; Visit Provider Internal Medicine Pulmonary Disease | DX: R06.02 Shortness of breath (principal); R06.09 Other forms of dyspnea; U09.9 Post COVID-19 condition, unspecified; Z87.891 Personal history of nicotine dependence | CPT/HCPCS: 99214 ==